=== PATIENT | female | born 1935 | race Caucasian/White ===

== ENCOUNTER → 2017-11-29 07:38 | Outpatient (CLI) | payer MEDICARE, SELFPAY ==
--- NOTE | 2017-11-29 07:49 | CT_ITS ---
STUDY: CT CHEST WITH CONTRAST REASON FOR EXAM: Female, 82 years old. Lung nodule RADIATION DOSAGE (If Supplied By Facility): CTDIvol = ( 8.28 ) mGy, DLP = ( 237.41 ) mGycm TECHNIQUE: Transaxial imaging was performed following intravenous administration of 100 ml of Isovue 300 contrast material. Individualized dose optimization techniques were used for this CT. COMPARISON: Previous study of 04/25/2013 FINDINGS: There is a stable 5 mm nodule of the left upper lobe, axial image 47. There are mild fibrotic changes of the right middle lobe and left lower lobe. There is no demonstrated pleural abnormality. There is mild cardiomegaly. There is no pericardial effusion. There is no evidence of mediastinal mass or adenopathy. There is a short segment focus of circumferential wall thickening of the midesophagus. Normal hilar regions. Normal enhanced pulmonary arteries. The ascending thoracic aorta is ectatic measuring up to 3.6 cm. There are diffuse degenerative changes of the thoracic spine. There is no demonstrated abnormality of the visualized upper abdomen. CT/Chest WITH Contrast IMPRESSION: 1. Stable 5 mm nodule of the left upper lobe. 2. Mild fibrotic changes of the right middle lobe and left lower lobe, also stable in the interval. 3. Short segment focus of circumferential wall thickening of the midesophagus, also appearing to have been present on the previous study. 4. Ectatic ascending thoracic aorta measuring up to 3.6 cm in diameter. 5. Diffuse degenerative changes of the thoracic spine. Electronically Signed: Michael Santos MD at 16:59 EDT , Service support ,
[2017-11-29 08:06] LABS: CREATININE FINGERSTICK 0.8 mg/dL (0.55-1.02); EGFR FINGERSTICK > 60.0000 mL/min (>60)
== END ==
PROVIDERS: Family Provider Internal Medicine; PCP Internal Medicine; Visit Provider Internal Medicine
DX: R91.1 Solitary pulmonary nodule (principal)
CPT/HCPCS: 71260; Q9967

== ENCOUNTER → 2017-12-23 08:26 | Outpatient (CLI) | payer MEDICARE, SELFPAY ==
--- NOTE | 2017-12-23 08:39 | RAD_ITS ---
Procedure: Fluoroscopically guided dedicated esophagram. INDICATIONS: Dysphasia. TECHNIQUE: Fluoroscopically guided dedicated esophagram including frontal and lateral views of the larynx/pharynx. Multiple digital spot images were obtained during the course of the real-time exam. Fluoroscopy time 1 minute and 10 seconds. FINDINGS: Multiple tertiary nonpropulsive contractions are seen through the mid and distal esophagus. There is no esophageal stricture, web or diverticulum. There is no hiatal hernia. No free reflux was observed during the course of the real-time exam. Frontal and lateral dedicated images of the larynx/pharynx demonstrated symmetric flow of the contrast bolus without mass or mass effect. The barium pill passed easily through the esophagus into the stomach. RAD/Esophagus Only IMPRESSION: Presbyesophagus. No esophageal stricture, web or diverticulum. Esophageal mucosal pattern appears unremarkable. Barium pill passed easily through the esophagus into the stomach. Electronically Signed: Bert Nicolas MD at 9:19 EDT , Service support ,
== END ==
PROVIDERS: Family Provider Internal Medicine; PCP Internal Medicine; Visit Provider Internal Medicine Gastroenterology
DX: R13.10 Dysphagia, unspecified (principal)
CPT/HCPCS: 74220

== ENCOUNTER → 2018-05-23 11:45 | Outpatient (CLI) | payer MEDICARE, SELFPAY ==
[2018-05-23 12:04] LABS: Hematocrit 41.3 % (37-47); Hemoglobin 13.3 g/dl (12.0-15.0); Mean Corp Hgb Conc 32.2 g/gl (32-36); Mean Corpuscular Hgb 28.7 pg (27.0-32.0); Mean Corpuscular Volume 89.2 fL (81-99); Mean Platelet Vol. 9.1 fl (6.2-12.0); Platelet Count 202 K/mm3 (150-450); RBC Distribution Width CV 13.8 % (11.6-14.6); RBC Distribution Width SD 44.7 fl (35.1-43.9); Red Blood Count 4.63 M/mm3 (4.2-5.4); Scan Indicated on CBC? Y/N NO; White Blood Count 5.5 K/mm3 (4.4-11.0)
--- NOTE | 2018-05-23 12:25 | CT_ITS ---
STUDY: CT ABDOMEN AND PELVIS WITHOUT CONTRAST REASON FOR EXAM: Female, 83 years old. Hematuria. RADIATION DOSAGE (If Supplied By Facility): CTDIvol = ( 6.66 ) mGy, DLP = ( 272.87 ) mGycm TECHNIQUE: Transaxial images were obtained from the dome of the diaphragm to the symphysis pubis without oral contrast, and without intravenous contrast. Sagittal and coronal images were reconstructed. Individualized dose optimization techniques were used for this CT. COMPARISON: Comparison is made with prior study dated November 16, 2015. FINDINGS: The visualized lung bases are unremarkable. Coronary artery calcification. Normal liver. Normal gallbladder and extrahepatic biliary system. Normal spleen. Normal pancreas. The right adrenal gland has been removed. Stable punctate calcification in the right adrenal bed. Stable enlargement of the left adrenal gland. 1.5 cm cyst in the anterior midportion of the right kidney. There is a 3.2 cm x 3.9 cm cyst along the medial upper portion of the left kidney. There is a small hiatal hernia. Normal small intestine. There are multiple colonic diverticula consistent with diverticulosis. The appendix is visualized and appears normal. There is diffuse atherosclerotic calcification of the abdominal aorta, without a demonstrated aneurysm. Normal inferior vena cava. Normal retroperitoneum. Normal urinary bladder. Normal abdominal wall. There are diffuse degenerative changes of the visualized lumbar spine. Dextroscoliosis. CT/Abdomen/Pelvis without Cont IMPRESSION: Stable bilateral renal cysts. Status post right adrenalectomy. Electronically Signed: Michael Persaud MD at 13:22 EDT Tel [phone], Service support ,
--- NOTE | 2018-05-23 12:35 | RAD_ITS ---
STUDY: X-RAY - ABDOMEN/PELVIS REASON FOR EXAM: Female, 83 years old. Right anterior abdominal pain. TECHNIQUE: Single AP view of the abdomen / pelvis. COMPARISON: None. FINDINGS: Normal visualized lung bases. There is a moderate amount of colonic fecal material. The visualized liver, spleen and kidneys are grossly normal in size and morphology. There are calcified phleboliths in the pelvis. There are diffuse degenerative changes of the visualized lumbar spine. Mild dextroscoliosis. RAD/Abdomen Single View IMPRESSION: Moderate amount of fecal material is seen in the colon. Electronically Signed: Michael Persaud MD at 13:18 EDT Tel [phone], Service support ,
[2018-05-23 12:36] LABS: ALB/GLOB Ratio 1.1 RATIO (0.9-2.4); AST(SGOT) 23 U/L (15-37); Alanine Aminotransfer ALT/SGPT 23 U/L (13-56); Albumin, Serum 3.9 g/dL (3.2-5.0); Alkaline Phosphatase 65 U/L (45-117); Anion Gap 8 (5-15); BUN 20 mg/dL (7-18); BUN/Creat Ratio 17.2 RATIO (10-20); Calcium,Total 9.4 mg/dL (8.5-10.1); Chloride 100 mmol/L (98-107); Creatinine, Serum 1.16 mg/dL (0.55-1.02); EST Glomerular Filtration Rate 48 mL/min (>60); Est Glom Filt Rate - Afr Amer 58 mL/min (>60); Globulin 3.7 g/dL (2.2-4.2); Glucose 87 mg/dL (74-106); Potassium 4.5 mmol/L (3.5-5.1); Protein, Total 7.6 g/dL (6.4-8.2); Sodium Level 138 mmol/L (136-145)
== END ==
PROVIDERS: Family Provider Internal Medicine; PCP Internal Medicine; Visit Provider Nurse Practitioner
DX: R10.9 Unspecified abdominal pain (principal); R31.9 Hematuria, unspecified
CPT/HCPCS: 74018; 74176; 80053; 85027

== ENCOUNTER → 2018-06-24 12:53 | Outpatient (CLI) | payer MEDICARE, SELFPAY ==
--- NOTE | 2018-06-24 12:54 | ECHOD_ITS ---
Reason For Study: DYSPNEA/SOB Procedure This was a 2D Doppler, Color Flow transthoracic echocardiogram. Exam performed in department. Left Ventricle Normal LV size. Apical false tendon noted. Left ventricular systolic function is normal. The estimated ejection fraction is 60 %. No regional wall motion abnormalities noted. Right Ventricle Normal RV size. Normal systolic function. Atria The left atrium is mildly enlarged. Normal right atrium. No doppler evidence for ASD. Mitral Valve There is no mitral annular calcification. Mild diffuse mitral valve thickening. Moderate mitral valve prolapse. 2D echocardiographic images appearing c/w a redundant and / or ruptured chordae tendonae. Mild-Moderate (1-2+) mitral valve insufficiency. Tricuspid Valve Normal tricuspid valve. Mild to moderate (1-2+) tricuspid valve insufficiency. Right ventricular systolic pressure estimated to be 28 mmHg. Aortic Valve Trisinus/trileaflet aortic valve. Mild diffuse aortic valve thickening. Mild-Moderate (1-2+) aortic valve insufficiency. Pulmonic Valve The pulmonic valve is not well visualized. Mild (1+) pulmonic valve insufficiency. Great Vessels Borderline to mildly enlarged ascending aorta. Pericardium/Pleural No pericardial effusion. MMode/2D Measurements & Calculations LVIDd: 4.5 cm IVSd: 0.99 cm LVOT diam: 2.4 cm LVIDs: 3.3 cm LVPWd: 1.0 cm LVOT area: 4.4 cm2 RVDd: 2.7 cm FS: 26.8 % Ao root diam: 2.9 cm LAV(MOD-bp): 58.9 ml LA A4 area: 19.8 cm2 LA dimension: 3.5 cm LAV(MOD-bp) Indexed: 37.1 ml/m2 LAV(MOD-sp2): 55.7 ml LAV(MOD-sp4): 54.8 ml RA A4 area: 14.7 cm2 Doppler Measurements & Calculations MV E max bradford: 64.4 cm/sec Lat Peak E' Bradford: 8.2 cm/sec Med Peak E' Bradford: 8.8 cm/sec MV A max bradford: 51.2 cm/sec E/E' lat: 7.9 E/E' med: 7.3 MV E/A: 1.3 Ao V2 max: 141.9 cm/sec AI max bradford: 490.1 cm/sec LV V1 max: 100.5 cm/sec Ao max P.1 mmHg AI max P.1 mmHg LV V1 max P.0 mmHg TRELL(V,D): 3.1 cm2 AI dec slope: 320.9 cm/sec2 AI P1/2t: 447.4 msec PA V2 max: 83.4 cm/sec PI end-d bradford: 89.7 cm/sec TR max bradford: 250.6 cm/sec TR max P.2 mmHg Interpretation Summary Left ventricular systolic function is normal. The estimated ejection fraction is 60 %. Apical false tendon noted. The left atrium is mildly enlarged. Moderate mitral valve prolapse. Mild diffuse mitral valve thickening. 2D echocardiographic images appearing c/w a redundant and / or ruptured chordae tendonae. Mild-Moderate (1-2+) mitral valve insufficiency. Mild to moderate (1-2+) tricuspid valve insufficiency. Mild diffuse aortic valve thickening. Mild-Moderate (1-2+) aortic valve insufficiency. Mild (1+) pulmonic valve insufficiency. Borderline to mildly enlarged ascending aorta. Right ventricular systolic pressure estimated to be 28 mmHg. Transmitral diastolic flow velocities suggest diastolic dysfunction (pseudonormal pattern). Ordering Physician: Galen Morales Referring Physician: Dori Boyd M.D. Performed By: Cherelle Figueredo RDCS, RVT
== END ==
PROVIDERS: Family Provider Internal Medicine; PCP Internal Medicine; Referring Provider Nurse Practitioner Family; Visit Provider Nurse Practitioner Family
DX: I25.10 Atherosclerotic heart disease of native coronary artery without angina pectoris (principal); I34.0 Nonrheumatic mitral (valve) insufficiency; I35.1 Nonrheumatic aortic (valve) insufficiency; I51.9 Heart disease, unspecified
CPT/HCPCS: 93306

== ENCOUNTER → 2018-09-09 09:49 | Outpatient (CLI) | payer MEDICARE, SELFPAY ==
--- NOTE | 2018-09-09 09:52 | CDU_ITS ---
Reason For Study: Carotid stenosis Rt. Velocities/BP Lt. Velocities/BP Prox CCA 108.0/18.2 cm/sec. Prox CCA 107.0/23.5 cm/sec. Mid CCA 81.5/14.7 cm/sec. Mid CCA 87.9/17.6 cm/sec. Dist CCA 73.3/18.2 cm/sec. Dist CCA 78.6/16.4 cm/sec. Prox ICA 57.5/19.3 cm/sec. Prox ICA 48.1/15.8 cm/sec. Mid ICA 83.8/24.6 cm/sec. Mid ICA 50.4/16.6 cm/sec. Dist ICA 78.8/21.9 cm/sec. Dist ICA 65.9/23.8 cm/sec. Rt. ICA/CCA = 1.0. Lt. ICA/CCA = .75. Prox ECA 103.0/19.9 cm/sec. Prox ECA 49.0/8.6 cm/sec. Rt. Vert. 49.2/16.4 cm/sec. Lt. Vert. 42.8/12.9 cm/sec. Right Extracranial There is intimal thickening but no significant atherosclerotic plaque noted in the right common carotid artery. There is heterogeneous, irregular atherosclerotic plaque noted in the right internal carotid artery. There is no significant atherosclerotic plaque noted in the right external carotid artery. Antegrade flow is noted in the right vertebral artery. Left Extracranial There is intimal thickening but no significant atherosclerotic plaque noted in the left common carotid artery. There is homogeneous, smooth atherosclerotic plaque noted in the left internal carotid artery. There is no significant atherosclerotic plaque noted in the left external carotid artery. Antegrade flow is noted in the left vertebral artery. Procedure Carotid Duplex [id number]. Exam performed in department. Interpretation Summary Mild (<50%) stenosis right extracranial internal carotid. Mild (<50%) stenosis left extracranial internal carotid. Flow within the vertebral arteries is antegrade bilaterally. Ordering Physician: Dori Boyd Referring Physician: Dori Boyd Performed By: Marcia Fitzpatrick RVT
== END ==
PROVIDERS: Family Provider Internal Medicine; PCP Internal Medicine; Referring Provider Internal Medicine; Visit Provider Internal Medicine
DX: I65.23 Occlusion and stenosis of bilateral carotid arteries (principal)
CPT/HCPCS: 93880

== ENCOUNTER 2019-02-26 12:48 | Observation (INO) | payer MEDICARE, SELFPAY ==
[2019-01-08 12:58] VITALS: BMI 27.1
[2019-02-26] VITALS (9 sets, daily range): BP systolic 120–173; BP diastolic 52–96; PULSE 61–91; RESP 13–18; TEMP 36.6–36.8; O2SAT 93–96; BMI 25.4; BMI 25.5; BMI 24.8
--- NOTE | 2019-02-26 13:25 | EKG12_ITS ---
Test Reason : CP Blood Pressure : / mmHG Vent. Rate : 078 BPM Atrial Rate : 227 BPM P-R Int : 000 ms QRS Dur : 120 ms QT Int : 384 ms P-R-T Axes : 048 -23 017 degrees QTc Int : 437 ms Sinus Rhythm Occasional PACs Occasional PVC's Low Voltage QRS (Limb Leads) Right bundle branch block Abnormal ECG Confirmed by CHAPITO MARCANO, SHAHZAD ([id number]), non linear editor JEFFREY RODRIGUEZ ([id number]) on 03/02/2019 2:24:58 PM Referred By: SUSNANA Confirmed By:SHAHZAD URIARTE MD
--- NOTE | 2019-02-26 13:26 | ED.DCSUM_ITS ---
- ER Visit Summary Date of Service: 02/26/19 Chief Complaint: Chest pain History of Present Illness: The patient is a 83 F who presents with chest pain that has been waxing and waning over the past 3 days. Patient describes as a tightness of the neck and upper chest. Patient states it is worse with exertion and improves with rest. Patient admits to some nausea but denies any vomiting. Patient admits to some shortness of breath and diaphoresis. Patient also admits to some palpitations. Patient also admits to some reflux symptoms that came on at night. Patient admits to some fatigue and lightheadedness. Patient also admits to a cough. Patient denies any fevers or chills. Patient has a history of hypercholesterolemia but denies any other cardiac or PE risk factors. Physical Examination: Vital signs are stable. Patient is afebrile. Patient is in no acute distress. Oral mucosa is pink and moist. Neck is supple. Trachea is midline. There is no JVD noted. Heart was regular rate and rhythm. Lungs are clear and equal bilateral. Abdomen is soft. Bowel sounds are normal. There is no tenderness. There is no guarding noted. Skin is warm dry. Cranial nerves II through XII are intact. There are no focal motor or sensory deficits noted. The remaining physical exam is within normal limits. Test Results: EKG showed a normal sinus rhythm with a rate of 78. There is a right bundle branch block pattern noted. There are no acute ST or T wave changes. This was unchanged compared to previous EKG dated 12/13/2015. Portable chest x-ray was obtained. There is no acute cardiopulmonary process. CBC was normal. Creatinine was slightly elevated at 1.26 BUN was 22. Troponin was slightly elevated at 0.215. TSH was normal at 2.2. Emergency Department Course and Treatment: Patient was given aspirin and sublingual nitroglycerin. Patient does not think the nitroglycerin change the tightness in her neck and chest. Patient has a HEART score of 7. Case was discussed with Dr. Kim. He will admit the patient to his service. Patient states she sees Dr. Bradshaw for cardiology. Disposition: Admit to hospital Impression: 1. Chest pain 2. Elevated troponin This note was generated with [employer] dictation software. It may contain incorrect words, spelling, and punctuation that were not noted in review of the chart prior to signing ED Disposition - Plan for ED Patient: Disposition: Acute Care Hospital [facility] Diagnosis: Chest pain, Elevated troponin Referrals: Dori Boyd DO [Primary Care Provider] -
[2019-02-26] MEDS: Aspirin 81 MG TAB.CHEW 324 MG PO (13:35)
--- NOTE | 2019-02-26 13:35 | ED.RN ---
Pt denies any chest pain or tightness at this time. Denies need for NTG tablets at this time. Instructed pt to use call light if chest pain or tightness started. Dr Moore aware.
--- NOTE | 2019-02-26 13:45 | RAD_ITS ---
STUDY: X-RAY CHEST REASON FOR EXAM: Female, 83 years old. TECHNIQUE: COMPARISON: None. FINDINGS: The lungs are clear and expanded. There is no demonstrated pleural abnormality. Normal size heart. Normal mediastinum and colette. Normal visualized pulmonary arteries. Normal visualized aortic arch and descending thoracic aorta. Normal visualized thoracic spine. Normal visualized ribs, clavicles, and shoulders. There is no demonstrated abnormality of the visualized soft tissue structures of the upper abdomen. RAD/Chest 1 View (Portable) IMPRESSION: Normal x-ray examination of the chest. Electronically Signed: Mehran Ferrell, at 14:19 EDT Tel , Service support ,
[2019-02-26 13:46] LABS: Absolute Lymphocyte Count 1.31 X10^3/ul (0.83-4.51); Absolute Neutrophil Count 3.3 X10^3/uL (2.0-7.7); Basophil# 0.02 X10^3/uL; Basophil% 0.4 % (0-1); Eosinophil# 0.21 X10^3/uL; Eosinophils% 3.9 % (0-5); Hematocrit 39.4 % (37-47); Hemoglobin 13.3 g/dl (12.0-15.0); Lymphocyte # 1.31 X10^3/ul (4.0); Lymphocyte % 24.5 % (19-41); Mean Corp Hgb Conc 33.8 g/gl (32-36); Mean Corpuscular Hgb 29.3 pg (27.0-32.0); Mean Corpuscular Volume 86.8 fL (81-99); Mean Platelet Vol. 8.9 fl (6.2-12.0); Monocyte# 0.47 X10^3/uL; Monocyte% 8.8 % (0-10); Neutrophil # 3.33 X10^3/uL (2.7-7.7); Neutrophil % 62.2 % (47-70); Platelet Count 204 K/mm3 (150-450); RBC Distribution Width CV 13.4 % (11.6-14.6); RBC Distribution Width SD 43.1 fl (35.1-43.9); Red Blood Count 4.54 M/mm3 (4.2-5.4); White Blood Count 5.4 K/mm3 (4.4-11.0)
[2019-02-26 13:49] LABS: POSITIVE COUNT NO; POSITIVE DIFFERENTIAL NO; POSITIVE MORPHOLOGY NO
[2019-02-26 14:03] LABS: Anion Gap 4 (5-15); BUN 22 mg/dL (7-18); BUN/Creat Ratio 17.5 RATIO (10-20); Calcium,Total 9.6 mg/dL (8.5-10.1); Chloride 105 mmol/L (98-107); Creatinine, Serum 1.26 mg/dL (0.55-1.02); EST Glomerular Filtration Rate 43 mL/min (>60); Est Glom Filt Rate - Afr Amer 52 mL/min (>60); Estimated Creatinine Clearance 25.98 ml/min; Glucose 103 mg/dL (74-106); Potassium 4.1 mmol/L (3.5-5.1); Sodium Level 136 mmol/L (136-145)
--- NOTE | 2019-02-26 15:21 | ED.RN ---
Pt called out c/o upper chest/neck tightness. Dr. Moore aware, NTG given per orders.
[2019-02-26] MEDS: Nitroglycerin SL (ED/IMG/CATH) 0.4 MG TABLET SUBLINGUAL ×2 (15:25→15:35)
--- NOTE | 2019-02-26 16:04 | ED.RN ---
pt states second dose Nitro took tightness feeling away. denies need for third dose.
--- NOTE | 2019-02-26 16:45 | HP.PCM_ITS ---
Problem List (1) Unstable angina Status: Acute History of Present Illness Date of Admission: 02/26/19 Chief Complaint: chest pain The patient is a 83 year old F for the past few days has been having midsternal chest pain that goes up into her left jaw. It is intermittent occasionally associate with activity but other times it does not. Presents to the emergency room because she just felt very weak over this time. Had a troponin that was 0.2. Patient did receive aspirin in the emergency room. The hospitalist service was contacted to see about admitting this patient for further cardiac evaluation. Patient has had intermittent chest pain before but has never sought attention for it as this tends to be more severe than what she is experienced previously. No shortness of breath, no diaphoresis. [] Past Medical History Past Medical History (Chronic Problems): Chronic Problems (Last Reviewed 01/08/19 @ 12:57 by Josseline Wellington) Essential (primary) hypertension (Chronic) Pure hypercholesterolemia (Chronic) Atherosclerosis of [place] coronary artery of [place] heart without angina pectoris (Chronic) Non-rheumatic tricuspid valve insufficiency (Chronic) Diastolic dysfunction (Chronic) Hx of congestive heart failure (Chronic) Nonrheumatic mitral valve insufficiency (Chronic) Nonrheumatic aortic valve insufficiency (Chronic) Nonrheumatic mitral valve prolapse (Chronic) CHF (congestive heart failure) (Chronic) Medical History: Medical History (Last Reviewed 02/26/19 @ 16:47 by Teajs Kim DO) Essential (primary) hypertension (Chronic) I10 Pure hypercholesterolemia (Chronic) E78.00 Atherosclerosis of [place] coronary artery of [place] heart without angina pectoris (Chronic) I25.10 Non-rheumatic tricuspid valve insufficiency (Chronic) I36.1 Diastolic dysfunction (Chronic) I51.9 Hx of congestive heart failure (Chronic) Z86.79 Cataract (Resolved) H26.9 Nonrheumatic mitral valve insufficiency (Chronic) I34.0 Nonrheumatic aortic valve insufficiency (Chronic) I35.1 Nonrheumatic mitral valve prolapse (Chronic) I34.1 CHF (congestive heart failure) (Chronic) I50.9 Old myocardial infarction (Resolved) I25.2 NonST Elevation FL Troponin I above reference range (Resolved) R79.89 Chest pain (Resolved) R07.9 GERD (gastroesophageal reflux disease) K21.9 Dyspnea R06.00 Allergies latex Allergy (Mild, Verified 02/26/19 12:52) Rash Penicillins [PCN] Allergy (Verified 02/26/19 16:24) Unknown Wdwniye-Dkr-Vbo Reductase Inhibitor Allergy (Verified 02/26/19 12:52) All blood cells low Home Medications: Ambulatory Orders Medication Instructions Recorded Aspirin [Aspirin, Baby] 81 mg PO DAILY@0800 12/13/15 Calcium Carbonate [Calcium] 1,200 mg PO DAILY 12/13/15 Cholecalciferol (VIT D3) [Vitamin 1,000 unit PO DAILY 12/13/15 D3] Fish Oil/Om-3/E/Folic/B6-B12 1 capsule PO QODAY 12/13/15 [Cardiovid Plus Softgel] Levothyroxine [Synthroid] 25 mcg PO MOTUWETHFR 12/13/15 ascorbic acid (vitamin C) 500 mg 500 mg PO QODAY tab 06/17/18 tablet coenzyme Q10 75 mg capsule 75 mg PO DAILY 12/10/18 colestipol 1 gram tablet 2 gm PO BID tab 12/10/18 vitamin E 200 unit capsule 200 unit PO QODAY cap 12/10/18 ALPRAZolam [Xanax] 0.125 - 0.25 mg PO Q8H PRN PRN 02/26/19 Cyanocobalamin (Vitamin B-12) 1,000 mcg PO QODAY 02/26/19 [Vitamin B-12] Levothyroxine Sodium 50 mcg PO SUSA 02/26/19 Vitamin B Complex [B Complex] 1 tab PO QODAY 02/26/19 Surgical History: Surgical History (Last Reviewed 02/26/19 @ 16:47 by Tejas Kim DO) History of appendectomy Z90.49 History of dilatation and curettage Z98.890 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 Surgical History: appendectomy, cataract, - - 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 Psychiatric History: No pertinent psych hx 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 Smoking Status: Never smoker - *Family History Maternal Family History: Family History (Last Reviewed 02/26/19 @ 16:47 by Tejas Kim DO) Father CAD (coronary artery disease) Myocardial infarction Mother CVA (cerebral vascular accident) Brother Aneurysm Brother Heart disease Sister Afib Parkinson's disease History Items: No pertinent history Paternal Family History: Family History (Last Reviewed 02/26/19 @ 16:47 by Tejas Kim DO) Father CAD (coronary artery disease) Myocardial infarction Mother CVA (cerebral vascular accident) Brother Aneurysm Brother Heart disease Sister Afib Parkinson's disease History Items: Heart Disease Sibling Family History: Family History (Last Reviewed 02/26/19 @ 16:47 by Tejas Kim DO) Father CAD (coronary artery disease) Myocardial infarction Mother CVA (cerebral vascular accident) Brother Aneurysm Brother Heart disease Sister Afib Parkinson's disease History Items: Heart Disease Review of Systems Constitutional: Reports: Malaise. Denies: Chills, Fever, Weight Change Eyes: Denies: Blurred vision, Double vision HEENT: Denies: Head Aches, Sinus Congestion, Sinus Drainage Cardiovascular: Reports: Chest Pain. Denies: Edema Respiratory: Denies: Cough, Shortness of breath at rest, Sputum production Gastrointestinal: Denies: Abdominal Pain, Nausea, Vomiting Genitourinary: Denies: Dysuria Musculoskeletal: Denies: Joint Pain, Joint Tenderness Skin: Denies: Rash, Wounds Neurological: Denies: Numbness, Tingling, Focal weakness Psychiatric: Denies: Anxiety, Depression Hematologic/ Lymphatic: Denies: Easy Bruising, Easy Bleeding, Hx of blood clot VTE Information - Inpt Only VTE Present on Admission: No VTE Mechan Device Prophylaxis: None VTE Pharm Prophylaxis ordered?: No Reason prophylaxis not ordered:: Procedure Not Indicated Patient Problems: Active and Suspected Problems (Last Reviewed 01/08/19 @ 12:57 by Josseline Wellington) Chest pain (Acute) Elevated troponin (Acute) Unstable angina (Acute) - Physical Exam General: Alert, Cooperative, No apparent distress HEENT: Atraumatic, Normocephalic Oral: Moist Mucosa, No Gingival or Mucosal Lesions/ Ulcerations Neck: No Nodes, Thyroid Normal Size and Texture Lungs: Clear to auscultation, Normal air movement, No rhonchi, No wheeze, No rales, Diminished Cardiovascular: Regular rate, Regular Rhythm, Normal S1, Normal S2, No murmurs Abdomen: Bowel Sounds Present, Soft, Non Tender, Non-Distended, No Hepato- splenomegaly Extremities: No edema, No Calf Tenderness Skin: No rashes, No breakdown Musculoskeletal: No Tenderness to Palpation of Joints or Extremities, No Muscle Wasting Neurological: Deep Tendon Reflexes 2+/4 and Symmetrical, - - No clonus Psych/Mental Status: Normal Affect, Appropriate Vital Signs Temp Pulse Resp BP Pulse Ox 36.8 C 78 16 131/77 H 96 02/26/19 12:50 02/26/19 16:00 02/26/19 16:00 02/26/19 16:00 02/26/19 16:00 Oxygen Delivery Method Room Air Weight: 62.142 kg Body Mass Index (BMI) 25.4 Laboratory Tests Past 24 Hrs 02/26/19 02/26/19 13:20 13:20 WBC 5.4 RBC 4.54 Hgb 13.3 Hct 39.4 MCV 86.8 MCH 29.3 MCHC 33.8 RDW 13.4 RDW Differential 43.1 Plt Count 204 MPV 8.9 Immature Gran % (Auto) 0.200 Neut % (Auto) 62.2 Lymph % (Auto) 24.5 [place] % (Auto) 8.8 Eos % (Auto) 3.9 Baso % (Auto) 0.4 Absolute Neuts (auto) 3.3 Absolute Lymphs (auto) 1.31 Total Counted Not Reportable Sodium 136 Potassium 4.1 Chloride 105 Carbon Dioxide 27.0 Anion Gap 4 L BUN 22 H Creatinine 1.26 H Estim Creat Clear Calc 25.98 Est GFR (MDRD) Af Amer 52 L Est GFR (MDRD) Non-Af 43 L BUN/Creatinine Ratio 17.5 Glucose 103 Calcium 9.6 Troponin I 0.215 H TSH 2.20 EKG personally reviewed and showed normal sinus rhythm with a right bundle branch block. EKG reported noted atrial flutter but I do not see any saw wave pattern. Chest x-ray reviewed and showed normal airways no infiltrate nor pulmonary edema. Assessment/Plan All Active Problems (Last Reviewed 01/08/19 @ 12:57 by Josseline Wellington) Chest pain (Acute) Elevated troponin (Acute) Unstable angina (Acute) Cataract (Resolved) Old myocardial infarction (Resolved) Troponin I above reference range (Resolved) Chest pain (Resolved) 1. Unstable angina * Troponins leg elevated * MARTÍN score of 5, heart score of 7 * We will start the patient on Lovenox, continue with aspirin. * Consult cardiology, patient normal stock wetter is Dr. Bradshaw. * Had a heart cath back in 2015 that showed minimal nonobstructive coronary artery disease. 2. Heart failure with preserved ejection fraction * Ejection fraction of 60% from echocardiogram on June 24, 2018 * Clinically compensated at this time 3. VTE prophylaxis: Low risk is being anticoagulated, therefore not indicated. Code Visit OBSV E&M: 99999 Initial observation care L3
--- NOTE | 2019-02-26 16:48 | EKG12_ITS ---
Test Reason : CP Blood Pressure : / mmHG Vent. Rate : 060 BPM Atrial Rate : 060 BPM P-R Int : 146 ms QRS Dur : 116 ms QT Int : 422 ms P-R-T Axes : 062 -09 025 degrees QTc Int : 422 ms Normal sinus rhythm with sinus arrhythmia Right bundle branch block Abnormal ECG Confirmed by CHAPITO MARCANO, SHAHZAD ([id number]), news assignment editor JUSTYNA LYNN ([id number]) on 03/03/2019 12:05:21 PM Referred By: RANDOLPH Confirmed By:SHAHZAD URIARTE MD
[2019-02-26] MEDS: Enoxaparin 60 MG/0.6 ML Syringe SC (17:51)
[2019-02-27] VITALS (34 sets, daily range): BP systolic 113–170; BP diastolic 59–100; PULSE 66–95; RESP 11–18; TEMP 36.5–36.8; O2SAT 13–99; BMI 22.1
[2019-02-27] MEDS: Acetaminophen 325 MG Tablet 650 MG PO ×2 (02:08→21:48)
[2019-02-27] MEDS: Levothyroxine 25 MCG TABLET PO (05:12)
[2019-02-27 06:08] LABS: International Normalized Ratio 1.1; Prothrombin Time (Protime)PT. 13.5 SECONDS (11.7-14.9)
[2019-02-27 06:10] LABS: Anion Gap 8 (5-15); BUN 24 mg/dL (7-18); BUN/Creat Ratio 20.7 RATIO (10-20); Calcium,Total 9.2 mg/dL (8.5-10.1); Chloride 103 mmol/L (98-107); Creatinine, Serum 1.16 mg/dL (0.55-1.02); EST Glomerular Filtration Rate 47 mL/min (>60); Est Glom Filt Rate - Afr Amer 57 mL/min (>60); Estimated Creatinine Clearance 28.22 ml/min; Glucose 98 mg/dL (74-106); Potassium 4.1 mmol/L (3.5-5.1); Sodium Level 138 mmol/L (136-145)
[2019-02-27] MEDS: Aspirin 81 MG TAB.CHEW PO (10:09)
[2019-02-27] MEDS: Calcium Carbonate 500 MG Tablet PO (10:10)
--- NOTE | 2019-02-27 10:24 | PCM.CONS.C ---
Problem List (1) Chest pain Status: Acute (2) Elevated troponin Status: Acute Reason for Consult Date of Consultation: 02/27/19 History of Present Illness: The patient is a 83 year old F [coming to [facility] because of chest tightness. Patient had chest tightness radiating to the left jaw on Saturday. She had it all day on Saturday and says that it felt better when she rested. On Saturday she called her doctor's office for an appointment and went to the doctor's office on . When she walked from her car to the doctor's office she had chest tightness. Her primary care physician sent the patient to the emergency room where she was given nitroglycerin which relieved her chest discomfort. Patient states she has had this chest tightness on and off to a lesser extent earlier than Saturday as well. She had a heart cath in December 2015 which was negative for obstructive CAD. At that time however her chest discomfort was different from what she is having at this time. Review of systems: All systems reviewed. All else is negative except that in the HPI] Past Medical History Allergies/Adverse Reactions: Allergies latex Allergy (Mild, Verified 02/26/19 12:52) Rash Penicillins [PCN] Allergy (Verified 02/26/19 16:24) Unknown Kdoioms-Rzc-Fof Reductase Inhibitor Allergy (Verified 02/26/19 12:52) All blood cells low Home Medications: Ambulatory Orders Medication Instructions Recorded Aspirin [Aspirin, Baby] 81 mg PO DAILY@0800 12/13/15 Calcium Carbonate [Calcium] 1,200 mg PO DAILY 12/13/15 Cholecalciferol (VIT D3) [Vitamin 1,000 unit PO DAILY 12/13/15 D3] Fish Oil/Om-3/E/Folic/B6-B12 1 capsule PO QODAY 12/13/15 [Cardiovid Plus Softgel] Levothyroxine [Synthroid] 25 mcg PO MOTUWETHFR 12/13/15 ascorbic acid (vitamin C) 500 mg 500 mg PO QODAY tab 06/17/18 tablet coenzyme Q10 75 mg capsule 75 mg PO DAILY 12/10/18 colestipol 1 gram tablet 2 gm PO BID tab 12/10/18 vitamin E 200 unit capsule 200 unit PO QODAY cap 12/10/18 ALPRAZolam [Xanax] 0.125 - 0.25 mg PO Q8H PRN PRN 02/26/19 Cyanocobalamin (Vitamin B-12) 1,000 mcg PO QODAY 02/26/19 [Vitamin B-12] Levothyroxine Sodium 50 mcg PO SUSA 02/26/19 Vitamin B Complex [B Complex] 1 tab PO QODAY 02/26/19 Past Medical History (Chronic Problems): Chronic Problems (Last Reviewed 02/26/19 @ 16:47 by Tejas Kmi DO) Essential (primary) hypertension (Chronic) Pure hypercholesterolemia (Chronic) Atherosclerosis of [place] coronary artery of [place] heart without angina pectoris (Chronic) Non-rheumatic tricuspid valve insufficiency (Chronic) Diastolic dysfunction (Chronic) Hx of congestive heart failure (Chronic) Nonrheumatic mitral valve insufficiency (Chronic) Nonrheumatic aortic valve insufficiency (Chronic) Nonrheumatic mitral valve prolapse (Chronic) CHF (congestive heart failure) (Chronic) Surgical History: appendectomy, cataract, - - 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 Psychiatric History: No pertinent psych hx 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: No pertinent 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 DIRECTOR history - *Family History Maternal Family History: Family History (Last Reviewed 02/26/19 @ 16:47 by Tejas Kim DO) Father CAD (coronary artery disease) Myocardial infarction Mother CVA (cerebral vascular accident) Brother Aneurysm Brother Heart disease Sister Afib Parkinson's disease History Items: No pertinent history Paternal Family History: Family History (Last Reviewed 02/26/19 @ 16:47 by Tejas Kim DO) Father CAD (coronary artery disease) Myocardial infarction Mother CVA (cerebral vascular accident) Brother Aneurysm Brother Heart disease Sister Afib Parkinson's disease History Items: Heart Disease Sibling Family History: Family History (Last Reviewed 02/26/19 @ 16:47 by Tejas Kim DO) Father CAD (coronary artery disease) Myocardial infarction Mother CVA (cerebral vascular accident) Brother Aneurysm Brother Heart disease Sister Afib Parkinson's disease History Items: Heart Disease Smoking Status: Never smoker Objective: Vital Signs Temp Pulse Resp BP Pulse Ox 98.3 F 91 14 143/76 H 98 02/27/19 09:58 02/27/19 09:58 02/27/19 09:58 02/27/19 09:58 02/27/19 09:58 Oxygen Delivery Method Room Air Weight: 133 lb 9.6 oz Body Mass Index (BMI) 24.8 Intake and Output for Last 24 Hours 02/25/19 02/26/19 02/27/19 23:59 23:59 23:59 Intake Total 240 / 240 Balance 240 / 240 General: Awake, Alert, Oriented x 3 HEENT: Atraumatic Oral: Moist Mucosa Neck: Supple Lungs: Clear to auscultation Cardiovascular: Normal S1, Normal S2 Abdomen: Soft Extremities: No edema Skin: No Rashes Psych/Mental Status: Appropriate 02/26/19 13:20: WBC 5.4, RBC 4.54, Hgb 13.3, Hct 39.4, MCV 86.8, MCH 29.3, MCHC 33.8, RDW 13.4, RDW Differential 43.1, Plt Count 204, MPV 8.9, Immature Gran % (Auto) 0.200, Neut % (Auto) 62.2, Lymph % (Auto) 24.5, Scott % (Auto) 8.8, Eos % (Auto) 3.9, Baso % (Auto) 0.4, Absolute Neuts (auto) 3.3, Total Counted Not Reportable 02/26/19 13:20: Sodium 136, Potassium 4.1, Chloride 105, Carbon Dioxide 27.0, Anion Gap 4 L, BUN 22 H, Creatinine 1.26 H, Est GFR (MDRD) Af Amer 52 L, Est GFR (MDRD) Non-Af 43 L, BUN/Creatinine Ratio 17.5, Glucose 103, Calcium 9.6, Troponin I 0.215 H 02/26/19 16:58: Troponin I 0.208 H 02/26/19 20:10: Troponin I 0.213 H 02/27/19 05:05: PT 13.5, INR 1.1 02/27/19 05:05: Sodium 138, Potassium 4.1, Chloride 103, Carbon Dioxide 27.0, Anion Gap 8, BUN 24 H, Creatinine 1.16 H, Est GFR (MDRD) Af Amer 57 L, Est GFR (MDRD) Non-Af 47 L, BUN/Creatinine Ratio 20.7 H, Glucose 98, Calcium 9.2 Rhythm: EKG: ECHO: Stress Test: Cardiac Cath: December 2015: Images reviewed. No significant CAD. PCI: CT Surgery: Holter monitor: EPS: PPM: CXR: Chest CT Scan: Assessment/Plan 1. Chest pain: This is typical by history. Even though patient had an angiogram in December 2015 that was negative for significant CAD, at this time I think it is reasonable to proceed with coronary angiography again. Risks and benefits discussed with the patient in detail. Patient is willing to proceed. 2. Elevated troponin: Patient had elevated troponin to this degree back in December 2015 as well. At that time angiography do not show any significant stenosis in the epicardial coronary arteries. However this time because of different symptoms that are more typical for angina we will proceed with coronary angiography.
[2019-02-27] MEDS: 0.9% NaCl Peripheral Flush Adult/Peds IV (11:41)
[2019-02-27] MEDS: 0.9% Normal Saline 1,000 ML 15 ML IV (11:41)
--- NOTE | 2019-02-27 12:28 | CASEMGMT ---
Insurance Review for In-network hospitals for [employer] per their website: [facility], [facility], , [facility], [facility], [facility], [facility], and [facility]. Bhargav CUMMINSN RN CM
[2019-02-27 14:00] LABS: ACT Activated Clotting Time 158 sec (74-137)
--- NOTE | 2019-02-27 14:00 | EKG12_ITS ---
Test Reason : AM Blood Pressure : / mmHG Vent. Rate : 072 BPM Atrial Rate : 072 BPM P-R Int : 140 ms QRS Dur : 116 ms QT Int : 388 ms P-R-T Axes : 056 -16 005 degrees QTc Int : 424 ms Sinus rhythm with Premature supraventricular complexes Right bundle branch block Abnormal ECG Confirmed by CHAPITO MARCANO, SHAHZAD ([id number]), communications editor JEFFREY RODRIGUEZ ([id number]) on 03/04/2019 12:46:17 PM Referred By: MARCELLE Confirmed By:SHAHZAD URIARTE MD
--- NOTE | 2019-02-27 14:25 | CL.I_ITS ---
Patient Name: HUBERT DAVIS Study Date: 02/27/2019 Performing: Rufus Donis MD Ht: 61 inches 156 cm : 1935 Wt: 134.7 lbs 61 kg Age: 83 Gender: female BSA: 1.6 PROCEDURE(S) PERFORMED [id number], CORONARY OR GRAFT, INITIAL VESSEL [id number] W OR WO PTCA, SINGLE CORONARY ARTERY CLINICAL PROFILE AND CO-MORBIDITIES Indications: ACS > 24 hrs Heart Failure: None Stress/Imaging Stress/Image Study Performed: No CAD Presentations: Unstable angina. CONCLUSIONS Successful IVUS guided PCI of pLAD with OZIEL RECOMMENDATIONS Follow up with primary kier boiler Jer for at least 12 months ASA Indefinitley Routine post interventional care DESCRIPTION OF PROCEDURE The patient arrived to the procedure lab. The risks and benefits of the procedure as well as a full d escription of our services here and current unavailability of surgical backup were fully explained to the patient and/or their significant other prior to the catheterization. The Timeout was completed, verifying the correct patient and procedure. The patient's procedural site was prepped and draped in the usual fashion. Local anesthetic was given subcutaneously to right radial region with Lidocaine 2% Using a modified Seldinger technique,arterial access was obtained via the right radial artery, a 6Fr sheath was inserted. Left Coronary Artery selective angiography was performed in multiple views usin g a 5 Fr. 4.0 [place] catheter. Right Coronary Artery selective angiography was then performed in multi ple views using a 5 Fr. 4.0 [place] catheter. Left Ventriculography was performed in HARRELL projection usi ng a 5 Fr. Pigtail catheter. LV to AO pullback pressures were then recorded.The images were reviewed and options discussed. A decision was then made to proceed with an Intervention, IVUS o r other adjunct procedure. XB 3.0 Guide catheter was inserted and engaged into the LCA. BMW Guide wire was advanced to the L AD. IVUS pullback recording was performed on the LAD for pre- intervention / lesion assessment. XB 3. 0 Guide catheter was inserted and engaged into the LCA. 4.0 x 8 Synergy Drug Eluting stent was advanc ed across the lesion in the LAD, proximal. Angiogram performed post stent deployment. The arterial sheath was pulled and a TR Band was applied for hemostasis 16cc air INTERVENTION INFORMATION LESION SITE: LAD (Proximal) Lesion Complexity: Non-High/Non-C, chronic total occlusion: No, lesion at bifurcation: No, thrombus p resent: No, lesion length: 7 mm, culprit lesion: Yes, Previously treated lesion: No Pre Stenosis: 70 % Pre intervention MARTÍN flow: 3 PROCEDURE: IVUS for pre PCI assessment of vessel, Drug Eluting Stent Post Stenosis: 0 % Post intervention MARTÍN flow: 3 Lesion Devices: [place] .014 BMW [place] Straight 190cm Cordis 6 Fr XB3.0 100cm Guide Catheter IGT Devices ( [facility]) Coronary IVUS Catheter Navid crealytics MR OZIEL 4.00x08 COMPLICATIONS No Complications PROCEDURE MEDICATIONS Versed 1 mg IV Fentanyl 50 mcg IV Versed 1 mg IV Oxygen: 2 L/min via nasal cannula Heparin diluted in 23cc Heparinized saline. Patient given 10cc IA of this solution. 02/27/2019 12:33: 02 Heparin 2000 unit(s) IV 02/27/2019 13:10:20 Verapamil 2.5mg, Ntg 100mcgs, 2000 units of Heparin diluted in 23cc Heparinized saline. Patient give n 10cc IA of this solution. 02/27/2019 12:33:02 SUMMARY OF HEMODYNAMIC DATA Time AIR REST ECG 11:57:23 AO 144/89 (114) SA 12:35:25 LV 168/-11, 23 12:44:47 LV 181/-17, 19 12:44:54 LV 182/-3, 32 12:45:58 LV 177/-8, 29 12:46:04 LVp 173/-10, 26 12:46:10 AOp 188/89 (136) 12:46:15 AO 167/78 (120) 13:10:48 Signed By Rufus Donis MD On 02/27/2019 2:24:58 PM Rufus Donis MD
--- NOTE | 2019-02-27 14:44 | CRPHASE1 ---
Patient Communication PHII Cardiac Rehab Discussed with Patient:: Yes Guide to Cardiac Rehab Given to Patient:: Yes Cardiac Rehab Facility Choice List Given to Patient:: Yes - [facility] Choice Program [facility] CR PHII:: Communication Given to CR, Refer to [facility] Crowning Inspector:: Nathaly Donis Phase II Cardiac Rehab:: Yes Sessions:: 36 sessions - 3 days/wk, 12 weeks Risk Factors/Lifestyle Smoking Status: Never smoker Second-Hand Smoke:: No Hx Hypertension: Yes Hx Dyslipidemia: Yes Height: 1.65 m Weight:: 60.328 kg BMI: 22.1 Family History: Family History (Last Reviewed 02/26/19 @ 16:47 by Tejas Kim DO) Father CAD (coronary artery disease) Myocardial infarction Mother CVA (cerebral vascular accident) Brother Aneurysm Brother Heart disease Sister Afib Parkinson's disease Phase I Education Given On:: [place], Nutrition, Antiplatelet medication, CHF, Smoking cessation, Diabetes - Type I, Diabetes - Type II Issues Affecting Care:: None Knowledge of Condition:: Yes Hospital Course Presenting Symptoms:: CP Cardiac Cath Date:: 02/27/19 Medical/Surgical History Hypertension:: Yes Dyslipidemia:: Yes PTCA:: Yes Discharge/Home/Social Eval Marital Status: Cardiac Rehabilitation Info Cardiac Rehabilitation Program Information: Cardiac Rehabilitation is important for patients like you who are recovering from a heart problem. Cardiac rehabilitation programs are recognized as integral to the continued care of the patient with coronary heart disease. The cardiac rehabilitation program is designed to optimize a patient's physical, psychological, and social functioning. Health child care team lead work in cardiac rehabilitation programs and assist you with getting the treatments you need to get stronger and healthier - like exercise, healthy eating habits, and medications. Cardiac rehabilitation has been show to help people with heart problems live longer and have better life enjoyment than people who do not go to cardiac rehabilitation. Please contact the Cardiac Rehabilitation Program at [facility] at in two weeks if you have not heard from them.
--- NOTE | 2019-02-27 14:51 | CRPH1.INSTRU ---
General Education CAD and cardiac anatomy and function:: Patient communicates acknowledgment Explanation of diagnoses and procedures:: Patient communicates acknowledgment Sign/Symptoms of MN:: Patient communicates acknowledgment Antiplatelet therapy: Patient communicates acknowledgment Proper use of NTG-SL: Patient communicates acknowledgment Emergency procedures and activation of EMS: Patient communicates acknowledgment Compliance of all prescribed medications: Patient communicates acknowledgment Smoking Patient Nicotine/Smoking Risk Factors Are:: Non-smoker Dyslipidemia Dyslipidemia Response Code:: Patient communicates acknowledgment Overweight/Obesity Patient Overweight/Obesity Risk Factors Are:: BMI Normal [18-25 & < 65 years old] Hypertension Hypertension:: Patient communicates acknowledgment Heart Disease Patient Heart Disease Risk Factors Are:: Family history of heart disease < 65 years old Heart Disease Response Code:: Patient communicates acknowledgment Diabetes Patient Diabetes Risk Factors Are:: No documented hx of diabetes Diabetes:: Patient communicates acknowledgment Metabolic Syndrome Metabolic Syndrome Response Code:: Patient communicates acknowledgment Sedentary Sedentary Response Code:: Patient communicates acknowledgment Stress Stress Response Code:: Patient communicates acknowledgment
[2019-02-27] MEDS: 0.9% Normal Saline 1,000 ML 100 ML IV (15:15)
--- NOTE | 2019-02-27 15:23 | CL.D_ITS ---
Patient Name: HUBERT DAVIS Study Date: 02/27/2019 Performing: Jakub Bradshaw MD Ht: 61.42 inches 156 cm : 1935 Wt: 134.48 lbs 61 kg Age: 83 Gender: female BSA: 1.6 PROCEDURE(S) PERFORMED [id number]/LV [id number], CORONARY OR GRAFT, INITIAL VESSEL [id number] W OR WO PTCA, SINGLE CORONARY ARTERY CLINICAL PROFILE AND INDICATIONS Indications: ACS > 24 hrs, Worsening Angina, Suspected CAD Heart Failure: None Stress/Imaging Stress/Image Study Performed: No Stress/Image Study Performed: No Angina Classification Anginal Classification w/in 2 Weeks: CCS III CAD Presentations: Unstable angina. Other: Worsening Angina CONCLUSIONS Normal LV size, wall motion,and systolic function Elevated Left Ventricular End Diastolic Pressure Normal LV size, wall motion,and systolic function LVEF: by LV gram 65 % [place] Multivessel CAD Aortic Root: possibly dilated Mitral Valve Prolapse Mild RECOMMENDATIONS Risk factor modification Medical therapy Staged for IVUS and possible PCI of the LAD DESCRIPTION OF PROCEDURE The patient arrived to the procedure lab. The risks and benefits of the procedure as well as a full d escription of our services here and current unavailability of surgical backup were fully explained to the patient and/or their significant other prior to the catheterization. The Timeout was completed, verifying the correct patient and procedure. The patient's procedural site was prepped and draped in the usual fashion. Local anesthetic was given subcutaneously to right radial region with Lidocaine 2% . Using a modified Seldinger technique, arterial access was obtained via the right radial artery, a 6 Fr sheath was inserted. Left Coronary Artery selective angiography was performed in multiple views u sing a 5 Fr. 4.0 [place] catheter. Right Coronary Artery selective angiography was then performed in mu ltiple views using a 5 Fr. 4.0 [place] catheter. Left Ventriculography was performed in HARRELL projection using a 5 Fr. Pigtail catheter. LV to AO pullback pressures were then recorded.The arterial sheath was pulled and a TR Band was applied for hemostasis 16cc air CORONARY ANGIOGRAPHY DOMINANCE: Right Dominant LEFT HEART ASSESSMENT Left Ventricular Ejection Fraction: by LV Gram 65 % Normal LV wall motion Elevated Left Ventricular End Diastolic Pressure LVEDP: 19 mmHg LEFT MAIN: Mild luminal irregularities LEFT ANTERIOR DESCENDING ARTERY: PROX LAD: Hazy; Eccentric; 75 % Stenosis MID LAD: Mild luminal irregularities DIAGONAL 1: Proximal - Mild luminal irregularities CIRCUMFLEX ARTERY: PROX CIRC: Mild luminal irregularities RIGHT CORONARY ARTERY: Diffuse; Eccentric: 25 % Stenosis VALVE FINDINGS: Normal Aortic Valve function Mitral Valve Prolapse Mild AORTIC ROOT: Possibly Dilated possibly dilated COMPLICATIONS No Complications PROCEDURE MEDICATIONS Versed 1 mg IV Fentanyl 50 mcg IV Versed 1 mg IV Oxygen: 2 L/min via nasal cannula Heparin diluted in 23cc Heparinized saline. Patient given 10cc IA of this solution. 02/27/2019 12:33: 02 Heparin 2000 unit(s) IV 02/27/2019 13:10:20 Verapamil 2.5mg, Ntg 100mcgs, 2000 units of Heparin diluted in 23cc Heparinized saline. Patient give n 10cc IA of this solution. 02/27/2019 12:33:02 SUMMARY OF HEMODYNAMIC DATA Time AIR REST ECG 11:57:23 AO 144/89 (114) SA 12:35:25 LV 168/-11, 23 12:44:47 LV 181/-17, 19 12:44:54 LV 182/-3, 32 12:45:58 LV 177/-8, 29 12:46:04 LVp 173/-10, 26 12:46:10 AOp 188/89 (136) 12:46:15 AO 167/78 (120) 13:10:48 Signed By Jakub Bradshaw MD On 02/27/2019 3:22:00 PM Jakub Bradshaw MD
[2019-02-27] MEDS: Ondansetron 4 MG/2 ML Vial IV (16:58)
--- NOTE | 2019-02-27 17:10 | PN_ITS ---
Patient Problems: Active and Suspected Problems (Last Reviewed 02/26/19 @ 16:47 by Tejas Kim DO) Chest pain (Acute) Elevated troponin (Acute) Unstable angina (Acute) Subjective: Seen and examined. Patient was admitted for 2 to 3 days of chest pain/tightness with radiation to left jaw on exertion along with shortness of breath. Seen by [facility] consultant and recommended cardiac cath. Vitals/I&O's: Vital Signs Temp Pulse Resp BP Pulse Ox 98.3 F 79 12 170/77 H 98 02/27/19 09:58 02/27/19 16:15 02/27/19 16:15 02/27/19 16:15 02/27/19 16:15 Oxygen Delivery Method Room Air Weight: 133 lb Body Mass Index (BMI) 24.8 Intake and Output for Last 24 Hours 02/25/19 02/26/19 02/27/19 23:59 23:59 23:59 Intake Total 480 / 480 Balance 480 / 480 General: Alert, Oriented x3, Cooperative HEENT: Atraumatic, PERRLA, EOMI, Normocephalic Neck: Supple, No JVD, Negative Carotid Bruits Lungs: Clear to auscultation, Normal air movement, No rhonchi, No wheeze, No rales Cardiovascular: Regular rate, Regular Rhythm, Normal S1, Normal S2, No murmurs Abdomen: Bowel Sounds Present, Soft, Non Tender, Non-Distended Extremities: Capillary Refill Less than 3 Seconds, Edema - Mild edema Skin: No rashes, No breakdown Musculoskeletal: No Tenderness to Palpation of Joints or Extremities, Arthritic Changes Neurological: Cranial nerves II-XII grossly intact, Deep Tendon Reflexes 2+/4 and Symmetrical, Neuro grossly intact, Motor Exam 5/5 strength throughout Psych/Mental Status: Normal Affect, Appropriate Laboratory Results 02/26/19 16:58: Troponin I 0.208 H 02/26/19 20:10: Troponin I 0.213 H 02/27/19 05:05: PT 13.5, INR 1.1 02/27/19 05:05: Sodium 138, Potassium 4.1, Chloride 103, Carbon Dioxide 27.0, Anion Gap 8, BUN 24 H, Creatinine 1.16 H, Estim Creat Clear Calc 28.22, Est GFR (MDRD) Af Amer 57 L, Est GFR (MDRD) Non-Af 47 L, BUN/Creatinine Ratio 20.7 H, Glucose 98, Calcium 9.2 02/27/19 13:36: Activated Clotting Time 158 H Current Medications Acetaminophen (Tylenol) 650 mg PO Q6H PRN PRN PRN Reason: Mild pain 1-3/Temp > 100.7 F Last Admin: 02/27/19 02:08 Dose: 325 mg Documented by: Alprazolam (Xanax) 0.125 mg PO Q8H PRN PRN PRN Reason: ANXIETY Ascorbic Acid (Vitamin C) 500 mg PO QODAY [facility] Aspirin (Aspirin, Baby) 81 mg PO DAILY@0800 [facility] Last Admin: 02/27/19 10:09 Dose: 81 mg Documented by: Atropine Sulfate () 0.5 mg IV UD PRN PRN Reason: HR <50 bpm Calcium Carbonate (Tums) 500 mg PO DAILY@0800 [facility] Last Admin: 02/27/19 10:10 Dose: 500 mg Documented by: Cholecalciferol (Vitamin D) 1,000 unit PO DAILY [facility] Cyanocobalamin (Vitamin B12) 1,000 mcg PO QODAY [facility] Enoxaparin Sodium (Lovenox) 60 mg SC DAILY [facility] Last Admin: 02/27/19 10:07 Dose: Not Given Documented by: Heparin Sodium (Beef Lung) (Heparin 500 Unit/5 Ml (100/Ml)) 500 unit IV UD PRN PRN Reason: HEPARIN FLUSH Sodium Chloride () 1,000 mls @ 100 mls/hr IV .Q10H [facility] Stop: 02/27/19 23:49 Last Admin: 02/27/19 15:15 Dose: 100 mls/hr Documented by: Labetalol HCl (Trandate) 5 mg IV X1 PRN PRN Reason: SBP > 160 when pulling sheath Stop: 03/01/19 13:50 Levothyroxine Sodium (Synthroid) 25 mcg PO MoTuWeThFr@0600 [facility] Last Admin: 02/27/19 05:12 Dose: 25 mcg Documented by: Levothyroxine Sodium (Synthroid) 50 mcg PO SuSa@0600 [facility] Morphine Sulfate () 2 mg IV Q3H PRN PRN PRN Reason: Severe Pain (7-10/10) Multivitamins (Allbee W/C Caplet, Thera B Comp/C) 1 capsule PO Q48@0800 [facility] Nitroglycerin (Nitrostat) 0.4 mg SUBLINGUAL Q5M PRN PRN Reason: CARDIAC/CHEST PAIN Ondansetron HCl (Zofran) 4 mg IV Q8H PRN PRN PRN Reason: NAUSEA/VOMITING Last Admin: 02/27/19 16:58 Dose: 4 mg Documented by: Oxycodone HCl (Oxyir) 5 mg PO Q4H PRN PRN PRN Reason: Moderate Pain (4-6/10) Sodium Chloride () 10 - 40 ml IV UD PRN PRN Reason: SALINE FLUSH Last Admin: 02/27/19 11:41 Dose: 10 ml Documented by: Sodium Chloride () 500 ml IV BOLUS PRN PRN Reason: VASO-VAGAL PROTOCOL Ticagrelor (Brilinta) 90 mg PO BID [facility] Medical Necessity - Tobacco Use Smoking Status: Never smoker Assessment/Plan All Active Problems (Last Reviewed 02/26/19 @ 16:47 by Tejas Kim DO) Chest pain (Acute) Elevated troponin (Acute) Unstable angina (Acute) Cataract (Resolved) Old myocardial infarction (Resolved) Troponin I above reference range (Resolved) Chest pain (Resolved) This 89-year-old female with history of mild coronary artery disease with heart cath in 2015 showed mild coronary artery disease came to ER with midsternal chest tightness with radiation to left jaw on exertion along with shortness of breath for few days. 1. Unstable angina/ non-STEMI: Patient troponins are mildly elevated. Cardiac cath showed EF 65% by LV gram. Proximal LAD 75% eccentric that required PCI. Diffuse RCA 25%. Patient transferred to ICU after PCI. The patient on aspirin, Brilinta, and add labetalol 5 mg IV 1 dose was given. Patient is allergic to statins. Coreg was added. Lipid profile for tomorrow a.m. 2. Heart failure with preserved EF, chronic. EF 65% by LV gram. EF was 60% on echo in June 2018. Currently does not have signs and symptoms of acute heart failure. 3. Hypertension: Blood pressure is elevated.: 170/77: Add losartan 50 mg daily. Follow BMP tomorrow a.m. Discontinue if platelet count drops less than 50,000 or hemoglobin less than 8 g% Laboratory 02/26/19 16:58: Troponin I 0.208 H 02/26/19 20:10: Troponin I 0.213 H 02/27/19 05:05: PT 13.5, INR 1.1 02/27/19 05:05: Sodium 138, Potassium 4.1, Chloride 103, Carbon Dioxide 27.0, Anion Gap 8, BUN 24 H, Creatinine 1.16 H, Estim Creat Clear Calc 28.22, Est GFR (MDRD) Af Amer 57 L, Est GFR (MDRD) Non-Af 47 L, BUN/Creatinine Ratio 20.7 H, Glucose 98, Calcium 9.2 02/27/19 13:36: Activated Clotting Time 158 H Code Visit Inpatient E&M: 03753 Subs Hosp L3
[2019-02-27] MEDS: Ascorbic Acid 500 MG Tablet PO (17:54)
[2019-02-27] MEDS: Vitamin B Comp W-C Capsule 1 CAP PO (17:54)
[2019-02-27] MEDS: Losartan Potassium 50 MG Tablet PO (17:55)
--- NOTE | 2019-02-27 18:18 | PN.CARD_ITS ---
Subjectve: The patient is status post diagnostic cardiac catheterization and subsequent LAD intravascular ultrasound and LAD PCI. She appears to be resting comfortably at this time. Objective: Vital Signs Temp Pulse Resp BP Pulse Ox 98.3 F 87 14 158/83 H 98 02/27/19 09:58 02/27/19 18:00 02/27/19 18:00 02/27/19 18:00 02/27/19 17:30 Oxygen Delivery Method Room Air Weight: 133 lb Body Mass Index (BMI) 24.8 Intake and Output for Last 24 Hours 02/25/19 02/26/19 02/27/19 23:59 23:59 23:59 Intake Total 480 / 480 Balance 480 / 480 General: Awake, Alert, Oriented x 3, Cooperative, No Acute Distress HEENT: Atraumatic, Normocephalic, PERRL, EOMI, Sclera Non Icteric Oral: Moist Mucosa Neck: Supple, Good ROM, No JVD Lungs: Clear to auscultation Cardiovascular: Regular Rhythm, Normal S1, Normal S2 Vascular: Normal Radial Pulses Abdomen: Bowel Sounds Present, Soft, Non Tender Extremities: No Cyanosis, No Clubbing, No edema Neurological: No Focal Motor or Sensory Deficit Psych/Mental Status: Appropriate 02/26/19 20:10: Troponin I 0.213 H 02/27/19 05:05: PT 13.5, INR 1.1 02/27/19 05:05: Sodium 138, Potassium 4.1, Chloride 103, Carbon Dioxide 27.0, Anion Gap 8, BUN 24 H, Creatinine 1.16 H, Est GFR (MDRD) Af Amer 57 L, Est GFR (MDRD) Non-Af 47 L, BUN/Creatinine Ratio 20.7 H, Glucose 98, Calcium 9.2 Rhythm: Sinus rhythm Medical Necessity - Tobacco Use Smoking Status: Never smoker Assessment/Plan 1. CAD status post LAD PCI The patient presented with concerning symptoms. Her laboratory studies were reviewed. It was elected to take the patient to the cardiac catheterization laboratory for further evaluation. She was noted to have concerning LAD findings and subsequently underwent intravascular ultrasound of her LAD which then led to LAD PCI. She is currently resting in the ICU with no acute adverse events. At the present time she will continue medical management. This will include agents such as her aspirin, antiplatelet agents, nitrates as needed, beta- blockers, afterload reducing agents, etc. She has been reportedly intolerant to statin therapy. 2. Diastolic dysfunction She has a history of diastolic dysfunction and potentially diastolic mediated CHF. She appears to be without any acute symptoms of CHF and/or pulmonary edema at this time. She will continue medical management and follow-up as deemed appropriate. 3. Valvular heart disease There is been concern of underlying valvular heart disease in the past. It may be reasonable to further assess the patient with a transthoracic echocardiogram to further define her valvular anatomy and physiology. 4. Hyperlipidemia The patient has a history of hyperlipidemia. She reportedly has been intolerant to statins. Consideration might be given as to further evaluation care of her lipid labs especially noting her underlying CAD. 5. Hypertension She will have medical adjustment to assist with her blood pressure control. Comment: The above was discussed and reviewed with the patient and Dr. Francisco. This note was generated using a voice recognition system and there may be incorrect words, spelling or punctuation that were not noted when reviewing the office note prior to saving.
--- NOTE | 2019-02-27 18:24 | ECHOD_ITS ---
Reason For Study: MVP Procedure This was a 2D Doppler, Color Flow transthoracic echocardiogram. Exam performed portable in ICU/CCU. Left Ventricle Normal LV size. Left ventricular systolic function is normal. The estimated ejection fraction is 60 %. Diastolic function is indeterminate. No regional wall motion abnormalities noted. Right Ventricle Normal RV size. Normal systolic function. Atria The left atrium is mildly enlarged. Normal right atrium. No doppler evidence for ASD. Mitral Valve There is no mitral annular calcification. Mild diffuse mitral valve thickening. 2D echocardiographic images appearing c/w redundant and / or ruptured chordae tendonae. Mild to moderate mitral valve prolapse. Mild-Moderate (1-2+) eccentric mitral valve insufficiency. Tricuspid Valve Normal tricuspid valve. Moderate (2+) tricuspid valve insufficiency. Right ventricular systolic pressure estimated to be 35 mmHg. Aortic Valve Trisinus/trileaflet aortic valve. Mild diffuse aortic valve thickening. Mild focal aortic valve calcification. Mild-Moderate (1-2+) aortic valve insufficiency. Pulmonic Valve The pulmonic valve is not well visualized. Great Vessels The aortic root is not well visualized. Pericardium/Pleural Trivial pericardial effusion. There are no echocardiographic indications of cardiac tamponade. MMode/2D Measurements & Calculations LVIDd: 4.8 cm IVSd: 0.89 cm LA dimension: 3.4 cm LVIDs: 3.6 cm LVPWd: 0.87 cm RVDd: 2.7 cm FS: 25.2 % LAV(MOD-sp4): 46.5 ml LA A4 area: 17.7 cm2 RA A4 area: 17.0 cm2 Time Measurements MV dec time: 0.17 sec Doppler Measurements & Calculations MV E max bradford: 47.7 cm/sec Lat Peak E' Bradford: 4.7 cm/sec Med Peak E' Bradford: 6.5 cm/sec MV A max bradford: 65.8 cm/sec E/E' lat: 10.1 E/E' med: 7.4 MV E/A: 0.73 MV V2 max: 73.8 cm/sec MV P1/2t max bradford: 46.6 cm/sec Ao V2 max: 127.2 cm/sec MV max P.2 mmHg MV P1/2t: 50.3 msec Ao max P.5 mmHg MV V2 mean: 33.3 cm/sec MV dec slope: 271.3 cm/sec2 MV mean P.55 mmHg MVA(P1/2t): 4.4 cm2 MV V2 VTI: 18.1 cm AI max bradford: 520.3 cm/sec LV V1 max: 97.6 cm/sec MR max bradford: 602.8 cm/sec AI max P.4 mmHg LV V1 max P.8 mmHg MR max P.4 mmHg MR mean bradford: 452.4 cm/sec AI dec slope: 315.1 cm/sec2 MR mean P.0 mmHg AI P1/2t: 483.6 msec MR VTI: 221.6 cm PA V2 max: 75.1 cm/sec TR max bradford: 284.1 cm/sec TR max P.3 mmHg Interpretation Summary Left ventricular systolic function is normal. The estimated ejection fraction is 60 %. The left atrium is mildly enlarged. Mild to moderate mitral valve prolapse. Mild diffuse mitral valve thickening. 2D echocardiographic images appearing c/w redundant and / or ruptured chordae tendonae. Mild-Moderate (1-2+) eccentric mitral valve insufficiency. Moderate (2+) tricuspid valve insufficiency. Mild diffuse aortic valve thickening. Mild focal aortic valve calcification. Mild-Moderate (1-2+) aortic valve insufficiency. Trivial pericardial effusion. There are no echocardiographic indications of cardiac tamponade. Right ventricular systolic pressure estimated to be 35 mmHg. Diastolic function is indeterminate. Ordering Physician: Jakub Bradshaw Referring Physician: Dori Boyd M.D. Performed By: Chris Holloway RCS
[2019-02-27] MEDS: TICAGRELOR 90 MG TABLET PO (21:44)
[2019-02-27] MEDS: Carvedilol 6.25 MG Tablet PO (21:48)
[2019-02-28] VITALS (29 sets, daily range): BP systolic 76–158; BP diastolic 46–83; PULSE 55–90; RESP 8–20; TEMP 36.6–36.7; O2SAT 93–99
[2019-02-28] MEDS: Acetaminophen 325 MG Tablet 650 MG PO (04:05)
[2019-02-28] MEDS: Levothyroxine 50 MCG Tablet PO (04:05)
[2019-02-28 04:26] LABS: Hematocrit 39.4 % (37-47); Hemoglobin 13.4 g/dl (12.0-15.0); Mean Corpuscular Hgb 29.5 pg (27.0-32.0); Mean Corpuscular Volume 86.8 fL (81-99); Mean Platelet Vol. 8.8 fl (6.2-12.0); Platelet Count 197 K/mm3 (150-450); RBC Distribution Width CV 13.4 % (11.6-14.6); RBC Distribution Width SD 42.6 fl (35.1-43.9); Red Blood Count 4.54 M/mm3 (4.2-5.4); Scan Indicated on CBC? Y/N NO; White Blood Count 6.5 K/mm3 (4.4-11.0)
[2019-02-28 04:41] LABS: ALB/GLOB Ratio 0.9 RATIO (0.9-2.4); AST(SGOT) 32 U/L (15-37); Alanine Aminotransfer ALT/SGPT 20 U/L (13-56); Albumin, Serum 3.6 g/dL (3.2-5.0); Alkaline Phosphatase 62 U/L (45-117); Anion Gap 8 (5-15); BUN 17 mg/dL (7-18); BUN/Creat Ratio 16.3 RATIO (10-20); Calcium,Total 9.2 mg/dL (8.5-10.1); Chloride 103 mmol/L (98-107); Cholesterol 216 mg/dL (200); Creatinine, Serum 1.04 mg/dL (0.55-1.02); EST Glomerular Filtration Rate 54 mL/min (>60); Est Glom Filt Rate - Afr Amer 65 mL/min (>60); Estimated Creatinine Clearance 36.01 ml/min; Globulin 3.9 g/dL (2.2-4.2); Glucose 106 mg/dL (74-106); High Density Lipoprotein 77 mg/dL; Potassium 4.1 mmol/L (3.5-5.1); Protein, Total 7.5 g/dL (6.4-8.2); Sodium Level 136 mmol/L (136-145); Triglycerides 59 mg/dL; Very Low Density Lipoprotein 12 mg/dL (5-40)
[2019-02-28] MEDS: Calcium Carbonate 500 MG Tablet PO (08:29)
[2019-02-28] MEDS: Aspirin 81 MG TAB.CHEW PO (08:29)
[2019-02-28] MEDS: TICAGRELOR 90 MG TABLET PO ×2 (08:29→21:36)
[2019-02-28] MEDS: Losartan Potassium 50 MG Tablet PO (08:31)
[2019-02-28] MEDS: Cyanocobalamin 500 MCG Tablet 1000 MCG PO (08:32)
[2019-02-28] MEDS: Ascorbic Acid 500 MG Tablet PO (08:32)
[2019-02-28] MEDS: Carvedilol 6.25 MG Tablet PO (08:35)
--- NOTE | 2019-02-28 10:00 | EKG12_ITS ---
Test Reason : Blood Pressure : / mmHG Vent. Rate : 057 BPM Atrial Rate : 057 BPM P-R Int : 136 ms QRS Dur : 114 ms QT Int : 442 ms P-R-T Axes : 048 004 032 degrees QTc Int : 430 ms Sinus bradycardia [id number] Septal infarct , age undetermined , cannot be excluded Abnormal ECG Confirmed by CHAPITO MARCANO, SHAHZAD ([id number]), news videotape editor JEFFREY RODRIGUEZ ([id number]) on 03/04/2019 12:50:15 PM Referred By: Kay URIARTE Confirmed By:SHAHZAD URIARTE MD
--- NOTE | 2019-02-28 10:58 | NURSING ---
dr gonsales in room pt became bradycardiac,diaphoretic,bp 76/47, nonverbal briefly ns bolus 500cc infusing, assisted back to bed ekg completed, bp 105/63 sb hr 58, co nausea medicated with zofran as per order
[2019-02-28] MEDS: 0.9% Normal Saline 500 ML IV.SOLN. IV (11:00)
[2019-02-28] MEDS: Ondansetron 4 MG/2 ML Vial IV (11:16)
[2019-02-28] MEDS: 0.9% NaCl Peripheral Flush Adult/Peds IV (11:16)
--- NOTE | 2019-02-28 11:18 | NURSING ---
bp 112/57 hr 59 sb, resting in bed able to answer questions, @ bedside
[2019-02-28] MEDS: 0.9% Normal Saline 1,000 ML 100 ML IV ×3 (11:30→23:26)
--- NOTE | 2019-02-28 11:45 | PCM.PN.CARD ---
Subjectve: The patient has been awake and alert. She had denied any acute symptoms yesterday evening, throughout the night, or this morning. During her evaluation this morning sitting in her bedside chair she became dizzy and nauseated. At that time she was noted to have developed sinus bradycardia/marked sinus bradycardia/junctional rhythm-bradycardia/idioventricular rhythm with subsequent hypotension. She was noted to have her eyes open but was slow to respond. She was then noted to regain sinus rhythm/sinus bradycardia just prior to receiving IV atropine. She did not receive IV atropine. She did receive IV normal saline bolus/infusion. She was subsequently returned to her bed. He was performed. She continued with sinus rhythm with her underlying right IVCD with no definitive acute ECG changes. As her heart rate and blood pressure improved she began to feel better. She had denied any chest discomfort or difficulty breathing. Objective: Vital Signs Temp Pulse Resp BP Pulse Ox 98.1 F 90 11 L 147/69 H 94 02/28/19 04:00 02/28/19 06:00 02/28/19 06:00 02/28/19 06:00 02/28/19 06:00 Oxygen Delivery Method Room Air Weight: 133 lb Body Mass Index (BMI) 24.8 Intake and Output for Last 24 Hours 02/26/19 02/27/19 02/28/19 23:59 23:59 23:59 Intake Total 1743 / 1743 100 / 100 Output Total 1300 / 1300 Balance 443 / 443 100 / 100 General: Awake, Alert, Oriented x 3, Cooperative HEENT: Atraumatic, Normocephalic, PERRL, EOMI, Sclera Non Icteric Oral: Moist Mucosa Neck: Supple, Good ROM, No JVD Lungs: Clear to auscultation Cardiovascular: Regular Rhythm, Normal S1, Normal S2 Murmur Murmur: Grade 2/6, Soft, Mid Systolic, LLSB, [place] Vascular: Normal Radial Pulses Abdomen: Bowel Sounds Present, Soft, Non Tender Extremities: No edema Neurological: No Focal Motor or Sensory Deficit Psych/Mental Status: Appropriate 02/28/19 04:10: WBC 6.5, RBC 4.54, Hgb 13.4, Hct 39.4, MCV 86.8, MCH 29.5, MCHC 34.0, RDW 13.4, RDW Differential 42.6, Plt Count 197, MPV 8.8 06/29/19 04:10: Sodium 136, Potassium 4.1, Chloride 103, Carbon Dioxide 25.0, Anion Gap 8, BUN 17, Creatinine 1.04 H, Est GFR (MDRD) Af Amer 65, Est GFR (MDRD) Non-Af 54 L, BUN/Creatinine Ratio 16.3, Glucose 106, Calcium 9.2, Total Bilirubin 0.60, Triglycerides 59, Cholesterol 216 H, LDL Cholesterol 127, VLDL Cholesterol 12, HDL Cholesterol 77 Rhythm: Cardiac rhythm as noted above EKG: ECG from earlier this a.m. demonstrated sinus rhythm with left axis deviation with a right bundle branch block pattern. Follow-up ECG as noted above. ECHO: 02-28-19 Interpretation Summary Left ventricular systolic function is normal. The estimated ejection fraction is 60 %. The left atrium is mildly enlarged. Mild to moderate mitral valve prolapse. Mild diffuse mitral valve thickening. 2D echocardiographic images appearing c/w redundant and / or ruptured chordae tendonae. Mild-Moderate (1-2+) eccentric mitral valve insufficiency. Moderate (2+) tricuspid valve insufficiency. Mild diffuse aortic valve thickening. Mild focal aortic valve calcification. Mild-Moderate (1-2+) aortic valve insufficiency. Trivial pericardial effusion. There are no echocardiographic indications of cardiac tamponade. Right ventricular systolic pressure estimated to be 35 mmHg. Diastolic function is indeterminate. Cardiac Cath: 02-27-19 CORONARY ANGIOGRAPHY DOMINANCE: Right Dominant LEFT HEART ASSESSMENT Left Ventricular Ejection Fraction: by LV Gram 65 % Normal LV wall motion Elevated Left Ventricular End Diastolic Pressure LVEDP: 19 mmHg LEFT MAIN: Mild luminal irregularities LEFT ANTERIOR DESCENDING ARTERY: PROX LAD: Hazy; Eccentric; 75 % Stenosis MID LAD: Mild luminal irregularities DIAGONAL 1: Proximal - Mild luminal irregularities CIRCUMFLEX ARTERY: PROX CIRC: Mild luminal irregularities RIGHT CORONARY ARTERY: Diffuse; Eccentric: 25 % Stenosis VALVE FINDINGS: Normal Aortic Valve function Mitral Valve Prolapse Mild AORTIC ROOT: Possibly Dilated PCI: 02-27-19 CONCLUSIONS Successful IVUS guided PCI of pLAD with OZIEL Medical Necessity - Tobacco Use Smoking Status: Never smoker Assessment/Plan 1. CAD status post LAD PCI At the present time the patient has been recuperating from her cardiac catheterization/PCI. She has had no obvious adverse cardiovascular events with respect to her underlying CAD process. She does need to continue risk factor modification medical management as deemed appropriate. 2. Diastolic dysfunction She has a history of diastolic dysfunction and potentially diastolic mediated CHF. She appears to be without any acute symptoms of CHF and/or pulmonary edema at this time. She will continue medical management and follow-up as deemed appropriate. 3. Valvular heart disease There is been concern of underlying valvular heart disease in the past. She did have a repeat transthoracic echocardiogram as noted above. She continues with evidence of underlying valvular heart disease. At the moment she will continue follow-up by history, exam, and echocardiogram as deemed appropriate. 4. Hyperlipidemia The patient has a history of hyperlipidemia. She reportedly has been intolerant to statins. He states her intolerance has been myalgias. She believes she is only been on one statin in the past. She states at home she has been attempting colestipol but has difficulty taking it on a regular scheduled basis. Status post a lengthy discussion with her she was agreeable to reattempting a low dose alternative statin and monitor for intolerance as well as monitoring her lipid labs. 5. Hypertension She will have medical adjustment to assist with her blood pressure control. 6. Bradycardia/hypotension As noted above, during the patient's evaluation, she was noted to become bradycardic, hypotensive, and symptomatic. Her episode. Compatible with a vasovagal mediated type of event. However, contribution from her newly started beta-orion therapy and ARB therapy could not be excluded. She had no acute symptoms similar to her presentation with respect to her chest discomfort/CAD symptoms. Her ECG demonstrated no definitive acute ECG changes. She was noted to be symptomatically improved after being returned to bed and receiving IV fluids and noting increase in her heart rate and blood pressure. At the present time she will continue to be monitored. She will receive IV fluids. Her beta-blockers will be placed on hold. Her newly started antihypertensive therapy with ARB dose will be adjusted. She will receive additional evaluation care as deemed appropriate. Comment: The above was discussed and reviewed with the patient, her spouse, and and Dr. Francisco. This note was generated using a voice recognition system and there may be incorrect words, spelling or punctuation that were not noted when reviewing the office note prior to saving.
--- NOTE | 2019-02-28 14:26 | PN_ITS ---
Patient Problems: Active and Suspected Problems (Last Reviewed 02/26/19 @ 16:47 by Tejas Kim DO) Chest pain (Acute) Elevated troponin (Acute) Unstable angina (Acute) Subjective: Patient was seen and examined in the morning. There is plan for possible discharge but that is held as the patient got dizzy, lightheaded with sydni cardia/junctional bradycardia with idioventricular rhythm with associated hypotension. This was transient and resolved without any medications. Dr. Bradshaw informed me. IV atropine initially was ordered but patient did not receive as it got resolved spontaneously. Vitals/I&O's: Vital Signs Temp Pulse Resp BP Pulse Ox 98.1 F 61 18 127/66 H 98 02/28/19 12:00 02/28/19 12:00 02/28/19 12:00 02/28/19 12:00 02/28/19 12:00 Oxygen Flow Rate (L/min) 2 Oxygen Delivery Method Nasal Cannula Weight: 133 lb Body Mass Index (BMI) 24.8 Intake and Output for Last 24 Hours 02/26/19 02/27/19 02/28/19 23:59 23:59 23:59 Intake Total 1743 / 1743 1000 / 1000 Output Total 1300 / 1300 600 / 600 Balance 443 / 443 400 / 400 General: Alert, Oriented x3, Cooperative HEENT: Atraumatic, PERRLA, EOMI, Normocephalic Neck: Supple, No JVD, Negative Carotid Bruits Lungs: Clear to auscultation, Normal air movement Cardiovascular: Regular rate, Regular Rhythm, Normal S1, Normal S2, Murmur - Pansystolic murmur over apex, mitral valve area. Systolic murmur over left lower sternal border., - - Transient bradycardia/junctional bradycardia. Abdomen: Bowel Sounds Present, Soft, Non Tender, Non-Distended Extremities: No edema, Capillary Refill Less than 3 Seconds Skin: No rashes, No breakdown Musculoskeletal: No Tenderness to Palpation of Joints or Extremities Neurological: Cranial nerves II-XII grossly intact Psych/Mental Status: Normal Affect, Appropriate Laboratory Results 02/28/19 04:10: WBC 6.5, RBC 4.54, Hgb 13.4, Hct 39.4, MCV 86.8, MCH 29.5, MCHC 34.0, RDW 13.4, RDW Differential 42.6, Plt Count 197, MPV 8.8 02/28/19 04:10: Sodium 136, Potassium 4.1, Chloride 103, Carbon Dioxide 25.0, Anion Gap 8, BUN 17, Creatinine 1.04 H, Estim Creat Clear Calc 36.01, Est GFR (M DRD) Af Amer 65, Est GFR (MDRD) Non-Af 54 L, BUN/Creatinine Ratio 16.3, Glucose 106, Calcium 9.2, Total Bilirubin 0.60, AST 32, ALT 20, Alkaline Phosphatase 62, Total Protein 7.5, Albumin 3.6, Globulin 3.9, Albumin/Globulin Ratio 0.9, Triglycerides 59, Cholesterol 216 H, LDL Cholesterol 127, VLDL Cholesterol 12, HDL Cholesterol 77 Current Medications Acetaminophen (Tylenol) 650 mg PO Q6H PRN PRN PRN Reason: Mild pain 1-3/Temp > 100.7 F Last Admin: 02/28/19 04:05 Dose: 325 mg Documented by: Alprazolam (Xanax) 0.125 mg PO Q8H PRN PRN PRN Reason: ANXIETY Ascorbic Acid (Vitamin C) 500 mg PO QODAY ON LICENSE OF [facility] Last Admin: 02/28/19 08:32 Dose: 500 mg Documented by: Aspirin (Aspirin, Baby) 81 mg PO DAILY@0800 ON LICENSE OF [facility] Last Admin: 02/28/19 08:29 Dose: 81 mg Documented by: Atropine Sulfate () 0.5 mg IV UD PRN PRN Reason: HR <50 bpm Calcium Carbonate (Tums) 500 mg PO DAILY@0800 ON LICENSE OF [facility] Last Admin: 02/28/19 08:29 Dose: 500 mg Documented by: Cholecalciferol (Vitamin D) 1,000 unit PO DAILY ON LICENSE OF [facility] Last Admin: 02/28/19 08:32 Dose: 1,000 unit Documented by: Cyanocobalamin (Vitamin B12) 1,000 mcg PO QODAY ON LICENSE OF [facility] Last Admin: 02/28/19 08:32 Dose: 1,000 mcg Documented by: Heparin Sodium (Beef Lung) (Heparin 500 Unit/5 Ml (100/Ml)) 500 unit IV UD PRN PRN Reason: HEPARIN FLUSH Hydralazine HCl (Apresoline Iv) 10 mg IV Q6H PRN PRN PRN Reason: SBP>180 mmhg Sodium Chloride () 1,000 mls @ 100 mls/hr IV .Q10H ON LICENSE OF [facility] Last Admin: 02/28/19 11:30 Dose: 100 mls/hr Documented by: Labetalol HCl (Trandate) 5 mg IV X1 PRN PRN Reason: SBP > 160 when pulling sheath Stop: 03/01/19 13:50 Levothyroxine Sodium (Synthroid) 25 mcg PO MoTuWeThFr@0600 ON LICENSE OF [facility] Last Admin: 02/27/19 05:12 Dose: 25 mcg Documented by: Levothyroxine Sodium (Synthroid) 50 mcg PO SuSa@0600 ON LICENSE OF [facility] Last Admin: 02/28/19 04:05 Dose: 50 mcg Documented by: Losartan Potassium (Cozaar) 25 mg PO DAILY ON LICENSE OF [facility] Morphine Sulfate () 2 mg IV Q3H PRN PRN PRN Reason: Severe Pain (7-10/10) Multivitamins (Allbee W/C Caplet, Thera B Comp/C) 1 capsule PO Q48@0800 ON LICENSE OF [facility] Last Admin: 02/27/19 17:54 Dose: 1 capsule Documented by: Nitroglycerin (Nitrostat) 0.4 mg SUBLINGUAL Q5M PRN PRN Reason: CARDIAC/CHEST PAIN Ondansetron HCl (Zofran) 4 mg IV Q8H PRN PRN PRN Reason: NAUSEA/VOMITING Last Admin: 02/28/19 11:16 Dose: 4 mg Documented by: Oxycodone HCl (Oxyir) 5 mg PO Q4H PRN PRN PRN Reason: Moderate Pain (4-6/10) Pravastatin Sodium (Pravachol) 20 mg PO QHS ON LICENSE OF [facility] Sodium Chloride () 10 - 40 ml IV UD PRN PRN Reason: SALINE FLUSH Last Admin: 02/28/19 11:16 Dose: 10 ml Documented by: Sodium Chloride () 500 ml IV BOLUS PRN PRN Reason: VASO-VAGAL PROTOCOL Last Admin: 02/28/19 11:00 Dose: 500 ml Documented by: Ticagrelor (Brilinta) 90 mg PO BID ON LICENSE OF [facility] Last Admin: 02/28/19 08:29 Dose: 90 mg Documented by: Medical Necessity - Tobacco Use Smoking Status: Never smoker Assessment/Plan All Active Problems (Last Reviewed 02/26/19 @ 16:47 by Tejas Kim DO) Chest pain (Acute) Elevated troponin (Acute) Unstable angina (Acute) Cataract (Resolved) Old myocardial infarction (Resolved) Troponin I above reference range (Resolved) Chest pain (Resolved) This 89-year-old female with history of mild coronary artery disease with heart cath in 2015 showed mild coronary artery disease came to ER with midsternal chest tightness with radiation to left jaw on exertion along with shortness of breath for few days. 1. Unstable angina/ non-STEMI: Patient troponins are mildly elevated. Cardiac cath showed EF 65% by LV gram. Proximal LAD 75% eccentric that required PCI. Diffuse RCA 25%. Patient transferred to ICU after PCI. The patient on aspirin, Brilinta, and add labetalol 5 mg IV 1 dose was given. Patient is allergic to statins. Coreg was added. Lipid profile for tomorrow a.m. 2. Heart failure with preserved EF, chronic. EF 65% by LV gram. EF was 60% on echo in June 2018. Currently does not have signs and symptoms of acute heart failure. 3. Valvular heart disease: Patient has mild to moderate eccentric MR, moderate tricuspid regurgitation mild to moderate aortic regurgitation. 4. Arrhythmia with transient hypotension: Patient had transient bradycardia/junctional bradycardia/idioventricular rhythm: This was transient probably from vasovagal response as the patient was feeling abdominal gas and passed flatus at that time. This resolved without fluid. IV fluid normal saline 500 mL bolus was given. 5. Dyslipidemia: Fasting lipid profile LDL 127, HDL 77, total cholesterol 216 and triglyceride 59. Pravastatin ordered, starting with low-dose 20 mg at bedtime daily. This was discussed by Dr. Bradshaw to look for tolerance for statin. Hypertension: Blood pressure is elevated.: 170/77: Losartan was started 50 mg yesterday and decreased to 25 mg with holding parameters hold below systolic 120 mmHg. Follow BMP tomorrow a.m. DVT prophylaxis: Lovenox 40 mg subcu daily discontinue if platelet count drops less than 50,000 or hemoglobin less than 8 g% Laboratory 02/26/19 16:58: Troponin I 0.208 H 02/26/19 20:10: Troponin I 0.213 H 02/27/19 05:05: PT 13.5, INR 1.1 02/27/19 05:05: Sodium 138, Potassium 4.1, Chloride 103, Carbon Dioxide 27.0, Anion Gap 8, BUN 24 H, Creatinine 1.16 H, Estim Creat Clear Calc 28.22, Est GFR (MDRD) Af Amer 57 L, Est GFR (MDRD) Non-Af 47 L, BUN/Creatinine Ratio 20.7 H, Glucose 98, Calcium 9.2 02/27/19 13:36: Activated Clotting Time 158 H Code Visit Inpatient E&M: 73999 Subs Hosp L3
[2019-02-28] MEDS: Enoxaparin 40 MG/0.4 ML Syringe SC (19:28)
[2019-02-28] MEDS: Pravastatin 20 MG Tablet PO (21:36)
[2019-03-01] VITALS (9 sets, daily range): BP systolic 114–151; BP diastolic 60–90; PULSE 68–87; RESP 12–16; TEMP 36.6–36.8; O2SAT 90–97
--- NOTE | 2019-03-01 05:55 | EKG12_ITS ---
Test Reason : POST PCI Blood Pressure : / mmHG Vent. Rate : 078 BPM Atrial Rate : 078 BPM P-R Int : 156 ms QRS Dur : 126 ms QT Int : 402 ms P-R-T Axes : 069 -33 031 degrees QTc Int : 458 ms Normal sinus rhythm Left axis deviation Right bundle branch block Abnormal ECG Confirmed by CHAPITO MARCANO, SHAHZAD ([id number]), electronic news gathering editor JEFFREY RODRIGUEZ ([id number]) on 03/04/2019 12:51:15 PM Referred By: CHAPITO Confirmed By:SHAHZAD URIARTE MD
[2019-03-01 06:32] LABS: Anion Gap 4 (5-15); BUN 18 mg/dL (7-18); BUN/Creat Ratio 17.8 RATIO (10-20); Calcium,Total 8.8 mg/dL (8.5-10.1); Chloride 111 mmol/L (98-107); Creatinine, Serum 1.01 mg/dL (0.55-1.02); EST Glomerular Filtration Rate 56 mL/min (>60); Est Glom Filt Rate - Afr Amer 67 mL/min (>60); Estimated Creatinine Clearance 37.08 ml/min; Glucose 98 mg/dL (74-106); Potassium 4.1 mmol/L (3.5-5.1); Sodium Level 139 mmol/L (136-145)
[2019-03-01] MEDS: Levothyroxine 50 MCG Tablet PO (06:45)
[2019-03-01] MEDS: Calcium Carbonate 500 MG Tablet PO (08:17)
[2019-03-01] MEDS: Aspirin 81 MG TAB.CHEW PO (08:17)
[2019-03-01] MEDS: Vitamin B Comp W-C Capsule 1 CAP PO (08:17)
[2019-03-01] MEDS: Cyanocobalamin 500 MCG Tablet 1000 MCG PO (08:18)
[2019-03-01] MEDS: TICAGRELOR 90 MG TABLET PO (08:18)
[2019-03-01] MEDS: Losartan Potassium 25 MG Tablet PO (08:19)
[2019-03-01] MEDS: ALPRAZolam 0.25 MG Tablet 0.125 MG PO (09:21)
--- NOTE | 2019-03-01 10:00 | DCINST_ITS ---
- Discharge Diagnoses Current Active Problems: Current Active and Chronic Problems (Last Reviewed 02/26/19 @ 16:47 by Tejas Kim DO) Chest pain (Acute) Elevated troponin (Acute) Unstable angina (Acute) You will use the following diet at home:: Cardiac Your food should be the consistency of: Regular Discharge Activity: May Not Drive Weight Bearing Status: Weight bearing as tolerated Call your doctor if you observe: Fever of 101 or Higher, Numbness or Tingling, Inability to urinate, Inability to have a bowel movement, Shortness of breath, Dizziness, Fainting spells, Swelling in the ankles, Chest pain, Increased palpitations (irregular heartbeat), Uncontrolled pain Allergies/Adverse Reactions: Allergies latex Allergy (Mild, Verified 02/26/19 12:52) Rash Penicillins [PCN] Allergy (Verified 02/26/19 16:24) Unknown Qfuumcf-Dnn-Tia Reductase Inhibitor Allergy (Verified 02/26/19 12:52) All blood cells low Medications to take at Discharge Aspirin [Aspirin, Baby] 81 mg PO DAILY@0800 12/13/15 Calcium Carbonate [Calcium] 1,200 mg PO DAILY 12/13/15 Cholecalciferol (VIT D3) [Vitamin D3] 1,000 unit PO DAILY 12/13/15 Fish Oil/Om-3/E/Folic/B6-B12 [Cardiovid Plus Softgel] 1 capsule PO QODAY 12/13/15 Levothyroxine [Synthroid] 25 mcg PO MOTUWETHFR 12/13/15 ascorbic acid (vitamin C) 500 mg tablet 500 mg PO QODAY tab 06/17/18 coenzyme Q10 75 mg capsule 75 mg PO DAILY 12/10/18 colestipol 1 gram tablet 2 gm PO BID tab 12/10/18 vitamin E 200 unit capsule 200 unit PO QODAY cap 12/10/18 ALPRAZolam [Xanax] 0.125 - 0.25 mg PO Q8H PRN PRN 02/26/19 Cyanocobalamin (Vitamin B-12) [Vitamin B-12] 1,000 mcg PO QODAY 02/26/19 Levothyroxine Sodium 50 mcg PO SUSA 02/26/19 Vitamin B Complex [B Complex] 1 tab PO QODAY 02/26/19 Ticagrelor [Brilinta] 90 mg PO BID #60 tab 02/28/19 Losartan Potassium 25 mg PO DAILY #30 tab 03/01/19 Pravastatin [Pravachol] 20 mg PO QHS #30 tab 03/01/19 The following prescriptions were given: Ticagrelor [Brilinta] 90 mg PO BID #60 tab Losartan Potassium 25 mg PO DAILY #30 tab Transmission Status: [id number] Pravastatin [Pravachol] 20 mg PO QHS #30 tab Transmission Status: Pending to [id number] Primary Care Physician: Dori Boyd DO [Primary Care Provider] - Please follow up with your Primary Care Physician in: in 1-2 week Test Results: Test results from this visit will be discussed in further detail at your follow- up appointment, if applicable. Please Follow Up With: Jakub Bradshaw MD When: in 2-3 weeks
--- NOTE | 2019-03-01 10:00 | EKG12_ITS ---
Test Reason : AM EKG Blood Pressure : / mmHG Vent. Rate : 069 BPM Atrial Rate : 069 BPM P-R Int : 142 ms QRS Dur : 118 ms QT Int : 416 ms P-R-T Axes : -15 -34 011 degrees QTc Int : 445 ms Normal sinus rhythm Left axis deviation Right bundle branch block Abnormal ECG Confirmed by CHAPITO MARCANO, SHAHZAD ([id number]), story editor JEFFREY RODRIGUEZ ([id number]) on 03/04/2019 12:50:30 PM Referred By: MARCELLE Confirmed By:SHAHZAD URIARTE MD
--- NOTE | 2019-03-01 10:06 | PN.CARD_ITS ---
Subjectve: The patient appears to be symptomatically improved today. She has had no recurrent events bradycardia dysrhythmias or hypotension. She has had no other new acute complaints. Objective: Vital Signs Temp Pulse Resp BP Pulse Ox 97.8 F 69 14 141/61 H 97 03/01/19 07:38 03/01/19 07:38 03/01/19 07:38 03/01/19 07:38 03/01/19 07:38 Oxygen Flow Rate (L/min) 2 Oxygen Delivery Method Room Air Weight: 133 lb Body Mass Index (BMI) 24.8 Intake and Output for Last 24 Hours 02/27/19 02/28/19 03/01/19 23:59 23:59 23:59 Intake Total 1743 / 1743 1240 / 1826 1186 / 1186 Output Total 1300 / 1300 600 / 600 Balance 443 / 443 640 / 1226 1186 / 1186 General: Awake, Alert, Oriented x 3, Cooperative, No Acute Distress HEENT: Atraumatic, Normocephalic, PERRL, EOMI, Sclera Non Icteric Oral: Moist Mucosa Neck: Supple, Good ROM, No JVD Lungs: Clear to auscultation Cardiovascular: Regular Rhythm, Normal S1, Normal S2 Abdomen: Bowel Sounds Present, Soft, Non Tender Extremities: No edema Neurological: No Focal Motor or Sensory Deficit Psych/Mental Status: Appropriate 03/01/19 05:50: Sodium 139, Potassium 4.1, Chloride 111 H, Carbon Dioxide 24.0, Anion Gap 4 L, BUN 18, Creatinine 1.01, Est GFR (MDRD) Af Amer 67, Est GFR (MDRD) Non-Af 56 L, BUN/Creatinine Ratio 17.8, Glucose 98, Calcium 8.8 Rhythm: Sinus rhythm EKG: Sinus rhythm; right bundle branch block pattern; no acute ECG changes Medical Necessity - Tobacco Use Smoking Status: Never smoker Assessment/Plan 1. CAD status post LAD PCI At the present time the patient has been recuperating from her cardiac catheterization/PCI. She has had no obvious adverse cardiovascular events with respect to her underlying CAD process. She does need to continue risk factor modification medical management as deemed appropriate. 2. Diastolic dysfunction She has a history of diastolic dysfunction and potentially diastolic mediated CHF. She appears to be without any acute symptoms of CHF and/or pulmonary edema at this time. She will continue medical management and follow-up as deemed appropriate. 3. Valvular heart disease There is been concern of underlying valvular heart disease in the past. She did have a repeat transthoracic echocardiogram as noted above. She continues with evidence of underlying valvular heart disease. At the moment she will continue follow-up by history, exam, and echocardiogram as deemed appropriate. 4. Hyperlipidemia The patient has a history of hyperlipidemia. She reportedly has been intolerant to statins. He states her intolerance has been myalgias. She believes she is only been on one statin in the past. She states at home she has been attempting colestipol but has difficulty taking it on a regular scheduled basis. The patient was agreeable to reattempting an alternative statin. She was starte d on pravastatin 20 mg p.o. daily yesterday evening. She also states she has CoQ10 at home. She can take this or the [id number] directions. 5. Hypertension She will have medical adjustment to assist with her blood pressure control. 6. Bradycardia/hypotension Status post review of the case the consensus is that the patient experienced a vasovagal event potentially secondary to abdominal discomfort as a noxious stimuli. The patient has been monitored. She has remained symptomatically and hemodynamically stable. She has had no acute changes on her ECG pattern. Overall the patient should be able to be released home for continued outpatient cardiovascular follow-up. Comment: The above was discussed and reviewed with the patient. This note was generated using a voice recognition system and there may be incorrect words, spelling or punctuation that were not noted when reviewing the office note prior to saving.
--- NOTE | 2019-03-01 10:53 | PCM.DC.SUM ---
Discharge Date and Diagnosis Date of Admission: 02/26/19 Date of Discharge: 03/01/19 - Primary Discharge Diagnosis Active and Suspected Problems (Last Reviewed 02/26/19 @ 16:47 by Tejas Kim DO) Chest pain (Acute) Elevated troponin (Acute) Unstable angina (Acute) - Secondary Discharge Diagnosis Chronic Problems (Last Reviewed 02/26/19 @ 16:47 by Tejas Kim DO) Essential (primary) hypertension (Chronic) Pure hypercholesterolemia (Chronic) Atherosclerosis of [place] coronary artery of [place] heart without angina pectoris (Chronic) Non-rheumatic tricuspid valve insufficiency (Chronic) Diastolic dysfunction (Chronic) Hx of congestive heart failure (Chronic) Nonrheumatic mitral valve insufficiency (Chronic) Nonrheumatic aortic valve insufficiency (Chronic) Nonrheumatic mitral valve prolapse (Chronic) CHF (congestive heart failure) (Chronic) Hospital Course and Treatment Operations: None Summary of Care Provided: [] This 83-year-old female with history of mild coronary artery disease with heart cath in 2016 showed mild coronary artery disease came to ER with midsternal chest tightness with radiation to left jaw on exertion along with shortness of breath for few days. 1. Unstable angina/ non-STEMI: Patient troponins are mildly elevated. Cardiac cath showed EF 65% by LV gram. Proximal LAD 75% eccentric that required PCI. Diffuse RCA 25%. Patient transferred to ICU after PCI. The patient on aspirin, Brilinta, and add labetalol 5 mg IV 1 dose was given. Total cholesterol 216, LDL 127, HDL 77. Patient is on colestipol at home. Patient is allergic to statins but after discussion of pros and cons commonly benefit in ID, she was convinced for pravastatin. Low-dose pravastatin 20 mg by oven builder and try to titrate up as per toleration. Concern of myalgia or muscle related side effects. 2. Bradyarrthymia/junctional bradycardia with associated lightheadedness most related to vasovagal on 02/28/2018: Coreg was discontinued after this episode. Losartan was decreased to 25 mg daily. Discharge was held yesterday, 02/28. Telemetry shows heart rate 70s to 80s, normal sinus rhythm. Blood pressure is stable. Resolved. 2. Heart failure with preserved EF, chronic. EF 65% by LV gram. EF was 60% on echo in June 2018. Currently does not have signs and symptoms of acute heart failure. 3. Hypertension: Blood pressure is elevated.: 170/77: Stable 140s on losartan 25 mg daily. DVT prophylaxis On bilateral SCDs. Losartan resumed after 24 hours of cardiac cath. Patient had right radial artery cardiac cath PCI. Discharge medication reconciliation done. Discharge follow-up instructions completed. Discharge process discussed with the patient and all questions were answered to patient's satisfaction. Follow Dr. Bradshaw in 2 weeks. Total time spent, exact 35 minutes on discharge meds reconciliation, examination, review of imaging and blood test and discussion with the patient on follow-up instructions. Laboratory Results 03/01/19 05:50: Sodium 139, Potassium 4.1, Chloride 111 H, Carbon Dioxide 24.0, Anion Gap 4 L, BUN 18, Creatinine 1.01, Estim Creat Clear Calc 37.08, Est GFR (MDRD) Af Amer 67, Est GFR (MDRD) Non-Af 56 L, BUN/Creatinine Ratio 17.8, Glucose 98, Calcium 8.8 02/28/19 04:10: WBC 6.5, RBC 4.54, Hgb 13.4, Hct 39.4, MCV 86.8, MCH 29.5, MCHC 34.0, RDW 13.4, RDW Differential 42.6, Plt Count 197, MPV 8.8 02/28/19 04:10: Sodium 136, Potassium 4.1, Chloride 103, Carbon Dioxide 25.0, Anion Gap 8, BUN 17, Creatinine 1.04 H, Estim Creat Clear Calc 36.01, Est GFR (MDRD) Af Amer 65, Est GFR (MDRD) Non-Af 54 L, BUN/Creatinine Ratio 16.3, Glucose 106, Calcium 9.2, Total Bilirubin 0.60, AST 32, ALT 20, Alkaline Phosphatase 62, Total Protein 7.5, Albumin 3.6, Globulin 3.9, Albumin/Globulin Ratio 0.9, Triglycerides 59, Cholesterol 216 H, LDL Cholesterol 127, VLDL Cholesterol 12, HDL Cholesterol 77 Subjective: Seen and examined. Patient had episode of bradyarrhythmia yesterday with bradycardia/junctional bradycardia with dizziness and lightheadedness. Patient recovered spontaneously. At that time, patient was feeling abdominal gas/fullness. This most vasovagal response. Patient also has a history of anxiety. 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 She did not had these symptoms after the surgery. Blood pressure is good systolic and 140s after half an hour of losartan 25 mg. Shows normal sinus rhythm 70s. Coreg was discontinued yesterday - Physical Exam General: Alert, Oriented x3, Cooperative HEENT: Atraumatic, PERRLA, EOMI, Normocephalic Neck: Supple, No JVD, Negative Carotid Bruits Lungs: Clear to auscultation, Normal air movement, No rhonchi, No wheeze, No rales Cardiovascular: Regular rate, Regular Rhythm, Normal S1, Normal S2, No murmurs Abdomen: Bowel Sounds Present, Soft, Non Tender, Non-Distended, No Hepato-splenomegaly Extremities: No edema, Capillary Refill Less than 3 Seconds, - - Right radial artery cath access site dry; no hematoma. Skin: No rashes, No breakdown Musculoskeletal: No Tenderness to Palpation of Joints or Extremities Lymphatic: No Cervical, Supraclavicular, or Inguinal Adenopathy Neurological: Cranial nerves II-XII grossly intact, Deep Tendon Reflexes 2+/4 and Symmetrical, Neuro grossly intact, Motor Exam 5/5 strength throughout Psych/Mental Status: Normal Affect, Appropriate Vital Signs Temp Pulse Resp BP Pulse Ox 98.1 F 90 11 L 147/69 H 94 02/28/19 04:00 02/28/19 06:00 02/28/19 06:00 02/28/19 06:00 02/28/19 06:00 Oxygen Delivery Method Room Air Weight: 133 lb Body Mass Index (BMI) 24.8 Intake and Output for Last 24 Hours 02/26/19 02/27/19 02/28/19 23:59 23:59 23:59 Intake Total 1743 / 1743 100 / 100 Output Total 1300 / 1300 Balance 443 / 443 100 / 100 Laboratory Tests Past 24 Hrs 02/27/19 02/28/19 02/28/19 13:36 04:10 04:10 WBC 6.5 RBC 4.54 Hgb 13.4 Hct 39.4 MCV 86.8 MCH 29.5 MCHC 34.0 RDW 13.4 RDW Differential 42.6 Plt Count 197 MPV 8.8 Activated Clotting Time 158 H Sodium 136 Potassium 4.1 Chloride 103 Carbon Dioxide 25.0 Anion Gap 8 BUN 17 Creatinine 1.04 H Estim Creat Clear Calc 36.01 Est GFR (MDRD) Af Amer 65 Est GFR (MDRD) Non-Af 54 L BUN/Creatinine Ratio 16.3 Glucose 106 Calcium 9.2 Total Bilirubin 0.60 AST 32 ALT 20 Alkaline Phosphatase 62 Total Protein 7.5 Albumin 3.6 Globulin 3.9 Albumin/Globulin Ratio 0.9 Triglycerides 59 Cholesterol 216 H LDL Cholesterol 127 VLDL Cholesterol 12 HDL Cholesterol 77 Discharge Activity: May Not Drive Weight Bearing Status: Weight bearing as tolerated Call your doctor if you observe: Fever of 101 or Higher, Numbness or Tingling, Inability to urinate, Inability to have a bowel movement, Shortness of breath, Dizziness, Fainting spells, Swelling in the ankles, Chest pain, Increased palpitations (irregular heartbeat), Uncontrolled pain Home Medications: Medications to take at Discharge Aspirin [Aspirin, Baby] 81 mg PO DAILY@0800 12/13/15 Calcium Carbonate [Calcium] 1,200 mg PO DAILY 12/13/15 Cholecalciferol (VIT D3) [Vitamin D3] 1,000 unit PO DAILY 12/13/15 Fish Oil/Om-3/E/Folic/B6-B12 [Cardiovid Plus Softgel] 1 capsule PO QODAY 12/13/15 Levothyroxine [Synthroid] 25 mcg PO MOTUWETHFR 12/13/15 ascorbic acid (vitamin C) 500 mg tablet 500 mg PO QODAY tab 06/17/18 coenzyme Q10 75 mg capsule 75 mg PO DAILY 12/10/18 colestipol 1 gram tablet 2 gm PO BID tab 12/10/18 vitamin E 200 unit capsule 200 unit PO QODAY cap 12/10/18 ALPRAZolam [Xanax] 0.125 - 0.25 mg PO Q8H PRN PRN 02/26/19 Cyanocobalamin (Vitamin B-12) [Vitamin B-12] 1,000 mcg PO QODAY 02/26/19 Levothyroxine Sodium 50 mcg PO SUSA 02/26/19 Vitamin B Complex [B Complex] 1 tab PO QODAY 02/26/19 Ticagrelor [Brilinta] 90 mg PO BID #60 tab 02/28/19 Losartan Potassium 25 mg PO DAILY #30 tab 03/01/19 Pravastatin [Pravachol] 20 mg PO QHS #30 tab 03/01/19 Following Prescrptions Were Given to Patient: Ticagrelor [Brilinta] 90 mg PO BID #60 tab Losartan Potassium 25 mg PO DAILY #30 tab Transmission Status: [facility] by [id number] Pravastatin [Pravachol] 20 mg PO QHS #30 tab Transmission Status: Received by [id number] Primary Care Physician: Dori Boyd DO [Primary Care Provider] - Please follow up with your Primary Care Physician in: in 1-2 week Please Follow Up With: Jakub Bradshaw MD When: in 2-3 weeks Medical Necessity - Tobacco Use Smoking Status: Never smoker Meaningful Use Info Meaningful Use Diagnoses (Choose all that apply): AMI - AMI Aspirin given w/in 24hrs of arrival?: Yes ASA at discharge?: Yes Statins at discharge?: Yes Vaibhav/ARB at discharge?: Yes Beta Hcaya at discharge?: Yes Done w/ Acute ID measure.: Yes Documented LVEF (%): 65 Code Visit Inpatient E&M: 82108 Disch Hosp
== END 2019-03-01 11:10 | disposition home or self-care (01) ==
LOC: ED 15:52 → PCU 16:03 → ICU 02-27 13:54
PROVIDERS: Internal Medicine Cardiovascular Disease; Specialist; Emergency Provider Emergency Medicine; Family Provider Internal Medicine; PCP Internal Medicine; Visit Provider Internal Medicine
DX: I21.4 Non-ST elevation (NSTEMI) myocardial infarction (principal); I11.0 Hypertensive heart disease with heart failure; I50.32 Chronic diastolic (congestive) heart failure; I25.10 Atherosclerotic heart disease of native coronary artery without angina pectoris; K21.9 Gastro-esophageal reflux disease without esophagitis; I25.2 Old myocardial infarction; I08.3 Combined rheumatic disorders of mitral, aortic and tricuspid valves; E78.5 Hyperlipidemia, unspecified; Z79.899 Other long term (current) drug therapy; Z79.82 Long term (current) use of aspirin
CPT/HCPCS: 36415; 71045; 80048; 80053; 80061; 84443; 84484; 85025; 85027; 85347; 85610; 92928; 92978; 93005; 93306; 93458; 96361; 96372; 96374; 96376; 99152; 99153; 99218; 99285; J0153; J7030; J7040; Q9957; Q9967; A4216; C1753; C1769; C1874; C1887; C1894; C9600; G0378; J1327; J2405

== ENCOUNTER 2019-03-06 15:41 | Inpatient (IN) | payer MEDICARE, SELFPAY ==
[2019-02-26 16:51] VITALS: BMI 24.8
[2019-02-27 14:50] VITALS: BMI 22.1
[2019-03-06] VITALS (10 sets, daily range): BP systolic 129–177; BP diastolic 78–95; PULSE 73–93; RESP 12–18; TEMP 36.7–36.9; O2SAT 95–98; BMI 25.4; BMI 25.1
--- NOTE | 2019-03-06 16:09 | EKG12_ITS ---
Test Reason : SOB Blood Pressure : / mmHG Vent. Rate : 080 BPM Atrial Rate : 080 BPM P-R Int : 158 ms QRS Dur : 118 ms QT Int : 382 ms P-R-T Axes : 062 -30 029 degrees QTc Int : 440 ms Normal sinus rhythm Left axis deviation Right bundle branch block Abnormal ECG Confirmed by CHAPITO MARCANO, SHAHZAD ([id number]), editor magazine VIRAL [employer] ([id number]) on 03/09/2019 1:16:50 PM Referred By: Alethea Hernandez Confirmed By:SHAHZAD URIARTE MD
--- NOTE | 2019-03-06 16:10 | ED.DCSUM_ITS ---
- ER Visit Summary Date of Service: 03/06/19 Chief Complaint: Neck pain History of Present Illness: The patient is a 83 F with left-sided neck pain. The patient had similar symptoms last week. She had neck pain that she describes as a tightness and reported tiredness and shortness of breath. She was admitted, underwent cardiac catheterization, and stent placement. She has had continued symptoms since including left-sided neck pain, shortness of breath, and generalized weakness. She had some tingling in her legs earlier today but was able to walk. She denies any unilateral weakness. Denies any unilateral numbness. Denies facial droop, vision changes, or speech changes. Patient has been compliant with her medications as prescribed by her doctors. Physical Examination: Afebrile and vital signs unremarkable. Patient is alert and oriented. No acute distress. Cranial nerves grossly intact. NIH stroke scale 0. Heart regular rate and rhythm. Lungs clear. Abdomen soft and nontender. Skin appears normal. Calves soft and supple. Pulses strong and equal Test Results: EKG showed sinus rhythm at a rate of 80. No sign of acute ischemia or infarction pattern. Right bundle branch block pattern was noted. CBC, BMP, troponin, chest x-ray pending. Emergency Department Course and Treatment: Patient was treated with aspirin and placed on a monitor while awaiting results. CBC and BMP were unremarkable. Coags unremarkable. Troponin was 5. I contacted Dr. Bradshaw. He would not have expected this based on her cath results. She has been compliant with her medication, but I cannot rule out oc clusion/thrombus. I did add on a CTA to check for other causes. 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 Patient has remained stable. I contacted the hospitalist to admit for further care. She was started on heparin per cardiology. Treatment Plan: As above Disposition: Admission Impression: 1. NSTEMI This note was generated with [employer] dictation software. It may contain incorrect words, spelling, and punctuation that were not noted in review of the chart prior to signing ED Disposition - Plan for ED Patient: Referrals: Dori Boyd DO [Primary Care Provider] -
--- NOTE | 2019-03-06 16:15 | RAD_ITS ---
STUDY: X-RAY CHEST REASON FOR EXAM: Female, 83 years old. Neck pain and shortness of breath TECHNIQUE: Portable chest COMPARISON: 02/26/2019 FINDINGS: The lungs are clear and expanded. There is no demonstrated pleural abnormality. Normal size heart. Normal mediastinum and colette. Normal visualized pulmonary arteries. Normal visualized aortic arch and descending thoracic aorta. Normal visualized thoracic spine. There are degenerative changes of the right shoulder. There is no demonstrated abnormality of the visualized soft tissue structures of the upper abdomen. RAD/Chest 1 View (Portable) IMPRESSION: No acute process Electronically Signed: Eddie Ragland, at 16:47 EDT Tel , Service support ,
[2019-03-06 16:18] LABS: Absolute Lymphocyte Count 1.12 X10^3/ul (0.83-4.51); Absolute Neutrophil Count 4.2 X10^3/uL (2.0-7.7); Basophil# 0.02 X10^3/uL; Basophil% 0.3 % (0-1); Eosinophil# 0.19 X10^3/uL; Eosinophils% 3.1 % (0-5); Hematocrit 39.1 % (37-47); Hemoglobin 13.1 g/dl (12.0-15.0); Lymphocyte # 1.12 X10^3/ul (4.0); Mean Corp Hgb Conc 33.5 g/gl (32-36); Mean Corpuscular Hgb 29.2 pg (27.0-32.0); Mean Corpuscular Volume 87.1 fL (81-99); Mean Platelet Vol. 8.8 fl (6.2-12.0); Monocyte# 0.65 X10^3/uL; Monocyte% 10.5 % (0-10); Neutrophil # 4.23 X10^3/uL (2.7-7.7); Neutrophil % 67.9 % (47-70); Platelet Count 234 K/mm3 (150-450); RBC Distribution Width CV 13.5 % (11.6-14.6); RBC Distribution Width SD 42.8 fl (35.1-43.9); Red Blood Count 4.49 M/mm3 (4.2-5.4); White Blood Count 6.2 K/mm3 (4.4-11.0)
[2019-03-06] MEDS: Aspirin 81 MG TAB.CHEW 324 MG PO (16:30)
[2019-03-06 16:35] LABS: Anion Gap 4 (5-15); BUN 25 mg/dL (7-18); BUN/Creat Ratio 19.1 RATIO (10-20); Calcium,Total 9.6 mg/dL (8.5-10.1); Chloride 100 mmol/L (98-107); Creatinine, Serum 1.31 mg/dL (0.55-1.02); EST Glomerular Filtration Rate 41 mL/min (>60); Est Glom Filt Rate - Afr Amer 50 mL/min (>60); Estimated Creatinine Clearance 24.98 ml/min; Glucose 103 mg/dL (74-106); Potassium 4.4 mmol/L (3.5-5.1); Sodium Level 132 mmol/L (136-145)
[2019-03-06 16:39] LABS: POSITIVE COUNT NO; POSITIVE DIFFERENTIAL NO; POSITIVE MORPHOLOGY NO
--- NOTE | 2019-03-06 16:41 | ED.RN ---
LAB CALLS WITH CRITICAL RESULT, TROPONIN 5.03, DR. DILL MADE AWARE.
--- NOTE | 2019-03-06 16:54 | CT_ITS ---
STUDY: CTA CHEST REASON FOR EXAM: Female, 83 years old. Neck pain, history of heart stent RADIATION DOSAGE (If Supplied By Facility): CTDIvol = ( 6.40 ) mGy, DLP = ( 194.31 ) mGycm TECHNIQUE: The examination was performed with the intravenous administration of 75ML IV Isovue 300. Post-processing of the angiographic images was performed, with multiplanar reformation and 3D reconstruction. Individualized dose optimization techniques were used for this CT. COMPARISON: CT chest 11/29/2017. FINDINGS: Normal enhancement of the main pulmonary artery and right and left pulmonary arteries. Normal enhancement of the bilateral peripheral pulmonary arteries. There is no demonstrated pulmonary embolism. There is mild aneurysmal dilatation of the ascending thoracic aorta which measures 3.5 cm AP by 3.3 cm mediolateral diameter. There is calcific coronary atherosclerosis. There is a coronary stent within the LAD.. There is no demonstrated aortic dissection. Normal mediastinum. Normal hilar regions. Normal visualized trachea and bronchi. The lungs are well expanded. The exam is limited due to motion artifact. There are scattered bilateral groundglass pulmonary opacities. Scattered areas of subsegmental atelectasis.. Normal pleura. Normal chest wall structures. There is wall thickening of the stomach. The multilevel degenerative changes of the thoracic and lumbar spine with multilevel Schmorl's nodes. Mild biapical pulmonary scarring and pleural calcifications. There is a stable 5 mm left upper lobe pulmonary nodule. There is a pectus deformity of the chest Stable nodularity left adrenal gland. There is wall thickening of the stomach. There is 3 cm left renal cyst. CT/CTA Chest W/WO Contrast IMPRESSION: Normal CTA chest examination, without a demonstrated pulmonary embolism or arterial dissection. mild aneurysmal dilatation of the ascending thoracic aorta which measures 3.5 cm AP by 3.3 cm mediolateral diameter. There is calcific coronary atherosclerosis. There is a coronary stent within the LAD.. There are scattered groundglass pulmonary opacities, limited exam due to motion artifact, scattered areas of subsegmental atelectasis. These findings are infectious/inflammatory and/or pulmonary venous congestion Multilevel spondylosis thoracic and lumbar spine Mild biapical pulmonary scarring and pleural calcifications Stable 5 mm left upper lobe pulmonary nodule Stable pectus deformity of the chest Wall thickening of the stomach likely due to incomplete distention Electronically Signed: Eddie Ragland, at 17:54 EDT Tel , Service support ,
[2019-03-06 17:21] LABS: Partial Thromboplast Time 26.1 Seconds (24.1-36.2)
[2019-03-06] MEDS: Heparin Injection (Vial) 5,000 UNIT/ML VIAL 4500 UNIT IV (17:30)
[2019-03-06] MEDS: HEPARIN/D5w 25,000 UNITS 25,000 UNITS/250 ML IV.SOLN. 10 UNITS IV (17:31)
--- NOTE | 2019-03-06 18:36 | HP.PCM_ITS ---
History of Present Illness Date of Admission: 03/06/19 Chief Complaint: Left-sided neck pain and shoulder pain. The patient is a 83 year old F with an extensive past medical history as listed. She was recently admitted for chest pain a week ago and had drug-eluting stent placed in the LAD on 02/27/2019 on account of 75% stenosis. After discharge, she had persistent left-sided neck pain and chest pain which was not getting better. She also had associated shortness of breath which worsened with exertion so she decided to come into the ED today. She also complained of episode of palpitation. On admission in the ED, vitals were essentially stable and chemistry was significant for sodium of 132 with creatinine of 1.31. Troponin was 5.03. Chest CT was negative for any PE and chest x-ray showed no acute cardiopulmonary process. EKG showed no acute ST changes. She has been admitted to be managed for non-STEMI. [] Past Medical History Past Medical History (Chronic Problems): Chronic Problems (Last Reviewed 02/26/19 @ 16:47 by Tejas Kim DO) S/P coronary artery stent placement (Chronic ~02/27/19) IVUS guided PCI/OZIEL to prox LAD 02/27/19 Essential (primary) hypertension (Chronic) Pure hypercholesterolemia (Chronic) 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) Non-rheumatic tricuspid valve insufficiency (Chronic) Diastolic dysfunction (Chronic) Hx of congestive heart failure (Chronic) Nonrheumatic mitral valve insufficiency (Chronic) Nonrheumatic aortic valve insufficiency (Chronic) Nonrheumatic mitral valve prolapse (Chronic) CHF (congestive heart failure) (Chronic) Medical History: Medical History (Last Reviewed 02/26/19 @ 16:47 by Tejas Kim DO) Essential (primary) hypertension (Chronic) I10 Pure hypercholesterolemia (Chronic) E78.00 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) I25.10 Non-rheumatic tricuspid valve insufficiency (Chronic) I36.1 Diastolic dysfunction (Chronic) I51.9 Hx of congestive heart failure (Chronic) Z86.79 Cataract (Resolved) H26.9 Nonrheumatic mitral valve insufficiency (Chronic) I34.0 Nonrheumatic aortic valve insufficiency (Chronic) I35.1 Nonrheumatic mitral valve prolapse (Chronic) I34.1 CHF (congestive heart failure) (Chronic) I50.9 Old myocardial infarction (Resolved) I25.2 NonST Elevation [place] Troponin I above reference range (Resolved) R79.89 Chest pain (Resolved) R07.9 GERD (gastroesophageal reflux disease) K21.9 Dyspnea R06.00 Allergies latex Allergy (Mild, Verified 03/06/19 15:53) Rash Penicillins [PCN] Allergy (Verified 03/06/19 15:53) Unknown Msndrll-Tis-Vlq Reductase Inhibitor Allergy (Verified 03/06/19 15:53) All blood cells low Home Medications: Ambulatory Orders Medication Instructions Recorded Aspirin [Aspirin, Baby] 81 mg PO DAILY@0800 12/13/15 Calcium Carbonate [Calcium] 1,200 mg PO DAILY 12/13/15 Cholecalciferol (VIT D3) [Vitamin 1,000 unit PO DAILY 12/13/15 D3] Fish Oil/Om-3/E/Folic/B6-B12 1 capsule PO QODAY 12/13/15 [Cardiovid Plus Softgel] Levothyroxine [Synthroid] 25 mcg PO MOTUWETHFR 12/13/15 ascorbic acid (vitamin C) 500 mg 500 mg PO QODAY tab 06/17/18 tablet colestipol 1 gram tablet 2 gm PO BID tab 12/10/18 Cyanocobalamin (Vitamin B-12) 1,000 mcg PO QODAY 02/26/19 [Vitamin B-12] Vitamin B Complex [B Complex] 1 tab PO QODAY 02/26/19 Losartan Potassium 25 mg PO DAILY 03/06/19 Pravastatin [Pravachol] 20 mg PO QHS 03/06/19 Ticagrelor [Brilinta] 90 mg PO BID 03/06/19 Surgical History: Surgical History (Last Updated 03/02/19 @ 09:05 by Emerita Cloud) S/P coronary artery stent placement (Chronic) Onset Date: ~02/27/19 Z95.5 IVUS guided PCI/OZIEL to prox LAD 02/27/19 History of appendectomy Z90.49 History of dilatation and curettage Z98.890 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 Surgical History: appendectomy, cataract, - - 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 Psychiatric History: No pertinent psych hx 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 Smoking Status: Never smoker - *Family History Maternal Family History: Family History (Last Reviewed 02/26/19 @ 16:47 by Tejas Kim DO) Father CAD (coronary artery disease) Myocardial infarction Mother CVA (cerebral vascular accident) Brother Aneurysm Brother Heart disease Sister Afib Parkinson's disease History Items: No pertinent history Paternal Family History: Family History (Last Reviewed 02/26/19 @ 16:47 by Tejas Kim DO) Father CAD (coronary artery disease) Myocardial infarction Mother CVA (cerebral vascular accident) Brother Aneurysm Brother Heart disease Sister Afib Parkinson's disease History Items: Heart Disease Sibling Family History: Family History (Last Reviewed 02/26/19 @ 16:47 by Tejas Kim DO) Father CAD (coronary artery disease) Myocardial infarction Mother CVA (cerebral vascular accident) Brother Aneurysm Brother Heart disease Sister Afib Parkinson's disease History Items: Heart Disease Review of Systems Constitutional: Denies: Chills, Fever, Weight Change Eyes: Denies: Blurred vision HEENT: Denies: Head Aches, Sinus Congestion, Sinus Drainage Cardiovascular: Reports: - - left neck pain and shoulder pain. Denies: Chest Pain, Chest Pressure, Chest Tightness, Palpitations Respiratory: Denies: Cough, Shortness of breath at rest, Sputum production Gastrointestinal: Denies: Abdominal Pain, Nausea, Vomiting Genitourinary: Denies: Dysuria Musculoskeletal: Denies: Joint Pain, Joint Tenderness Skin: Denies: Rash, Wounds Neurological: Denies: Numbness, Tingling, Focal weakness Psychiatric: Denies: Anxiety, Depression, Homicidal Ideations, Suicidal Ideations Hematologic/ Lymphatic: Denies: Easy Bruising, Easy Bleeding VTE Information - Inpt Only VTE Present on Admission: No VTE Pharm Prophylaxis ordered?: Yes - Physical Exam General: Alert, Oriented x3, Cooperative, - - anxious HEENT: Atraumatic, PERRLA, EOMI, Normocephalic Oral: Moist Mucosa Neck: Supple, No JVD, Negative Carotid Bruits Lungs: Clear to auscultation, Normal air movement, No rhonchi, No wheeze, No rales Cardiovascular: Regular rate, Regular Rhythm, Normal S1, Normal S2, No murmurs Abdomen: Bowel Sounds Present, Soft, Non Tender, Non-Distended, No Hepato- splenomegaly Extremities: No clubbing, No cyanosis, No edema, Capillary Refill Less than 3 Seconds Skin: No rashes, No breakdown Musculoskeletal: No Tenderness to Palpation of Joints or Extremities Lymphatic: No Cervical, Supraclavicular, or Inguinal Adenopathy Neurological: Cranial nerves II-XII grossly intact, Neuro grossly intact, Motor Exam 5/5 strength throughout Psych/Mental Status: Anxious, Alert and oriented to time, place, person, mood and affect Vital Signs Temp Pulse Resp BP Pulse Ox 98.4 F 78 16 152/83 H 96 03/06/19 15:43 03/06/19 18:23 03/06/19 18:23 03/06/19 18:23 03/06/19 18:23 Oxygen Delivery Method Room Air Weight: 135 lb Body Mass Index (BMI) 25.4 Laboratory Tests Past 24 Hrs 03/06/19 03/06/19 03/06/19 15:55 15:55 15:55 WBC 6.2 RBC 4.49 Hgb 13.1 Hct 39.1 MCV 87.1 MCH 29.2 MCHC 33.5 RDW 13.5 RDW Differential 42.8 Plt Count 234 MPV 8.8 Immature Gran % (Auto) 0.200 Neut % (Auto) 67.9 Lymph % (Auto) 18.0 L [place] % (Auto) 10.5 H Eos % (Auto) 3.1 Baso % (Auto) 0.3 Absolute Neuts (auto) 4.2 Absolute Lymphs (auto) 1.12 Total Counted Not Reportable PT 13.0 INR 1.0 APTT 26.1 Sodium 132 L Potassium 4.4 Chloride 100 Carbon Dioxide 28.0 Anion Gap 4 L BUN 25 H Creatinine 1.31 H Estim Creat Clear Calc 24.98 Est GFR (MDRD) Af Amer 50 L Est GFR (MDRD) Non-Af 41 L BUN/Creatinine Ratio 19.1 Glucose 103 Calcium 9.6 Troponin I 5.030 H* Diagnostic Data Chest X-Ray 03/06/19 16:15 IMPRESSION: No acute process Electronically Signed: Eddie Ragland, at 16:47 EDT Tel , Service support , Chest CTA 03/06/19 16:54 IMPRESSION: Normal CTA chest examination, without a demonstrated pulmonary embolism or arterial dissection. mild aneurysmal dilatation of the ascending thoracic aorta which measures 3.5 cm AP by 3.3 cm mediolateral diameter. There is calcific coronary atherosclerosis. There is a coronary stent within the LAD.. There are scattered groundglass pulmonary opacities, limited exam due to motion artifact, scattered areas of subsegmental atelectasis. These findings are infectious/inflammatory and/or pulmonary venous congestion Multilevel spondylosis thoracic and lumbar spine Mild biapical pulmonary scarring and pleural calcifications Stable 5 mm left upper lobe pulmonary nodule Stable pectus deformity of the chest Wall thickening of the stomach likely due to incomplete distention Electronically Signed: Eddie Ragland, at 17:54 EDT Tel , Service support , Assessment/Plan All Active Problems (Last Reviewed 02/26/19 @ 16:47 by Tejas Kim DO) Chest pain (Acute) Elevated troponin (Acute) Unstable angina (Acute) Cataract (Resolved) Old myocardial infarction (Resolved) Troponin I above reference range (Resolved) Chest pain (Resolved) 83-year-old female admitted with a complaint of left sided neck pain and shoulder pain 1. Nonstemi * Admit to PCU with telemetry. * Patient is one-week status post drug-eluting stent placement in the LAD after she presented with chest tightness and was found to have a non-STEMI. * Cardiac cath done 1 week ago showed proximal LAD 75% stenosis that required PCI. * Patient currently on aspirin and Brilinta which she says she has been compliant with. Currently on low-dose pravastatin as she said she was allergic to statins. Cardiology plan to titrate statins upwards gradually. * Troponin is 5 on admission and EKG showed no acute ST changes. * CT angiogram done was negative for PE. * Will likely need cardiac cath. * Continue aspirin and Brilinta as well as statin. * case discussed with Dr Bradshaw * 2. Mild hyponatremia: Sodium is 132. Patient is currently stable. Will monitor. 3. Chronic heart failure with preserved ejection fraction: EF is 65%. Currently stable. 4. Hypertension: * On losartan 25 mg daily. * Blood pressure has been elevated and was in the 180s on admission but this is likely also due to severe anxiety which is contributing to blood pressure elevation. * IV hydralazine prn * Had junctional bradycardia during admission last week and so losartan dose was reduced. Not on beta-orion on account of bradycardia. 5. Hypothyroidism: On Synthroid. DVT prophylaxis: On heparin drip. Code Visit Inpatient E&M: [id number] Init Hosp L3
--- NOTE | 2019-03-06 19:49 | EKG12_ITS ---
Test Reason : Blood Pressure : / mmHG Vent. Rate : 083 BPM Atrial Rate : 083 BPM P-R Int : 150 ms QRS Dur : 120 ms QT Int : 380 ms P-R-T Axes : 068 -08 047 degrees QTc Int : 446 ms Normal sinus rhythm Right bundle branch block Abnormal ECG Confirmed by CHAPITO MARCANO, SHAHZAD ([id number]), communications editor JUSTYNA LYNN ([id number] on 03/12/2019 1:08:29 PM Referred By: Alethea Hernandez Confirmed By:SHAHZAD URIARTE MD
--- NOTE | 2019-03-06 19:53 | PCM.CONS.C ---
Problem List (1) NSTEMI (non-ST elevated myocardial infarction) Status: Acute (2) CAD (coronary artery disease) Status: Acute (3) S/P coronary artery stent placement Status: Chronic Comment: IVUS guided PCI/OZIEL to prox LAD 02/27/19 (4) Valvular heart disease Status: Chronic (5) Pure hypercholesterolemia Status: Chronic (6) Essential (primary) hypertension Status: Chronic Reason for Consult Date of Consultation: 03/06/19 History of Present Illness: The patient is a 83 year old white female with a past medical history of underlying CAD status post LAD intravascular ultrasound and LAD PTCA/stent (02-27-19) and hypertension who presents for evaluation of left neck discomfort, back discomfort, shortness of breath/dyspnea, nausea, and fatigue with findings of an abnormal troponin I level. The patient presented recently with concerns of neck discomfort. She underwent evaluation and was found to have indeterminate troponin I levels. Her ECG had demonstrated sinus rhythm with a right bundle branch block pattern. She subsequently underwent diagnostic cardiac catheterization. She was found to have LAD proximal disease. She underwent intravascular ultrasound which was thought to be abnormal. She subsequently received LAD PTCA/stent. She was monitored following her procedure. She was eventually released home for continued outpatient follow-up. She states she has been taking her medications as prescribed with the exception of not taking her statin therapy. She states that she has been up and about and feeling somewhat fatigued. Yesterday she states she actually felt better and was out and about with her . However today she states she noted left neck discomfort, felt more short of breath/dyspnea, had nausea, and felt somewhat more tired and fatigued. She presented to her PCPs office for evaluation and was evaluated by the MIXER HELPER. It appears then ECG was performed which demonstrate her sinus rhythm with a right bundle branch block pattern. Based upon her symptoms she was referred back to the emergency department for further evaluation and care. In the emergency department she underwent additional laboratory studies. Her troponin I level was 5.03. Her ECG demonstrated sinus rhythm with her right bundle branch block pattern. A chest CT scan was performed. It demonstrated no thromboembolic disease, mild aneurysmal dilatation of the thoracic aorta without obvious complication, and LAD stent being present. She has denied any other forms of chest discomfort other than a fleeting left-sided sharp discomfort. The patient has denied orthopnea or PND. There is been no obvious peripheral pitting edema. There is been no near syncope or syncope. The patient did note that during her morning exercises before she gets out of bed she felt both her lower extremities to be somewhat numb feeling . However she states that she had no loss of motor function. He was able to get up and out of bed without any difficulty. At the same time she had no other sensory or motor deficits or visual disturbances. [] Past Medical History Allergies/Adverse Reactions: Allergies latex Allergy (Mild, Verified 03/06/19 15:53) Rash Penicillins [PCN] Allergy (Verified 03/06/19 15:53) Unknown Hafkclp-[id number]-[id number] Reductase Inhibitor Allergy (Verified 03/06/19 15:53) All blood cells low Home Medications: Ambulatory Orders Medication Instructions Recorded Aspirin [Aspirin, Baby] 81 mg PO DAILY@0800 12/13/15 Calcium Carbonate [Calcium] 1,200 mg PO DAILY 12/13/15 Cholecalciferol (VIT D3) [Vitamin 1,000 unit PO DAILY 12/13/15 D3] Fish Oil/Om-3/E/Folic/B6-B12 1 capsule PO QODAY 12/13/15 [Cardiovid Plus Softgel] Levothyroxine [Synthroid] 25 mcg PO MOTUWETHFR 12/13/15 ascorbic acid (vitamin C) 500 mg 500 mg PO QODAY tab 06/17/18 tablet colestipol 1 gram tablet 2 gm PO BID tab 12/10/18 Cyanocobalamin (Vitamin B-12) 1,000 mcg PO QODAY 02/26/19 [Vitamin B-12] Vitamin B Complex [B Complex] 1 tab PO QODAY 02/26/19 Losartan Potassium 25 mg PO DAILY 03/06/19 Pravastatin [Pravachol] 20 mg PO QHS 03/06/19 Ticagrelor [Brilinta] 90 mg PO BID 03/06/19 Past Medical History (Chronic Problems): Chronic Problems (Last Reviewed 02/26/19 @ 16:47 by Tejas Kim DO) Valvular heart disease (Chronic) S/P coronary artery stent placement (Chronic ~02/27/19) IVUS guided PCI/OZIEL to prox LAD 02/27/19 Essential (primary) hypertension (Chronic) Pure hypercholesterolemia (Chronic) Atherosclerosis of [place] coronary artery of [place] heart without angina pectoris (Chronic) Non-rheumatic tricuspid valve insufficiency (Chronic) Diastolic dysfunction (Chronic) Hx of congestive heart failure (Chronic) Nonrheumatic mitral valve insufficiency (Chronic) Nonrheumatic aortic valve insufficiency (Chronic) Nonrheumatic mitral valve prolapse (Chronic) CHF (congestive heart failure) (Chronic) Surgical History: angioplasty, appendectomy, cataract, - - 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 Psychiatric History: No pertinent psych hx LEG MAN History: No pertinent LEG MAN history - *Family History Maternal Family History: Family History (Last Reviewed 02/26/19 @ 16:47 by Teajs Kim DO) Father CAD (coronary artery disease) Myocardial infarction Mother CVA (cerebral vascular accident) Brother Aneurysm Brother Heart disease Sister Afib Parkinson's disease History Items: No pertinent history Paternal Family History: Family History (Last Reviewed 02/26/19 @ 16:47 by Tejas Kim DO) Father CAD (coronary artery disease) Myocardial infarction Mother CVA (cerebral vascular accident) Brother Aneurysm Brother Heart disease Sister Afib Parkinson's disease History Items: Heart Disease Sibling Family History: Family History (Last Reviewed 02/26/19 @ 16:47 by Tejas Kim DO) Father CAD (coronary artery disease) Myocardial infarction Mother CVA (cerebral vascular accident) Brother Aneurysm Brother Heart disease Sister Afib Parkinson's disease History Items: Heart Disease Lives: Spouse/ Significant Other Smoking Status: Never smoker Tobacco Use: Non-smoker Alcohol: None Drugs: None Review of Systems - Review of Systems General: Reports: Fatigue. Denies: Fever, Night Sweats Cardiovascular: Reports: Chest Discomfort - Left neck discomfort, Shortness of Breath Respiratory: Reports: Shortness of Breath. Denies: Cough, Sputum Production, Hemoptysis Gastrointestinal: Denies: Hematemesis, Hematochezia, Melena Genitourinary: Denies: Dysuria, Hematuria Skin: Denies: Rash Subjectve: This is an 83-year-old white female who appears to be resting comfortably at this time in no acute distress. Objective: Vital Signs Temp Pulse Resp BP Pulse Ox 98.1 F 93 12 172/95 H 97 03/06/19 19:43 03/06/19 19:43 03/06/19 19:43 03/06/19 19:43 03/06/19 19:43 Oxygen Delivery Method Room Air Weight: 132 lb 15.02 oz Body Mass Index (BMI) 25.1 General: Awake, Alert, Oriented x 3, Cooperative, No Acute Distress HEENT: Atraumatic, Normocephalic, PERRL, EOMI, Sclera Non Icteric Oral: Moist Mucosa Neck: Supple, Good ROM, No JVD Lungs: Clear to auscultation Cardiovascular: Regular Rhythm, Normal S1, Normal S2 Murmur Murmur: Grade 2/6, Harsh, Mid Systolic, LLSB, [place] Vascular: No Carotid Bruits, Normal Radial Pulses Abdomen: Bowel Sounds Present, Soft, Non Tender Extremities: No Cyanosis, No Clubbing, No edema Neurological: No Focal Motor or Sensory Deficit Psych/Mental Status: Appropriate 03/06/19 15:55: WBC 6.2, RBC 4.49, Hgb 13.1, Hct 39.1, MCV 87.1, MCH 29.2, MCHC 33.5, RDW 13.5, RDW Differential 42.8, Plt Count 234, MPV 8.8, Immature Gran % (Auto) 0.200, Neut % (Auto) 67.9, Lymph % (Auto) 18.0 L, [place] % (Auto) 10.5 H, Eos % (Auto) 3.1, Baso % (Auto) 0.3, Absolute Neuts (auto) 4.2, Total Counted Not Reportable 03/06/19 15:55: Sodium 132 L, Potassium 4.4, Chloride 100, Carbon Dioxide 28.0, Anion Gap 4 L, BUN 25 H, Creatinine 1.31 H, Est GFR (MDRD) Af Amer 50 L, Est GFR (MDRD) Non-Af 41 L, BUN/Creatinine Ratio 19.1, Glucose 103, Calcium 9.6, Troponin I 5.030 H* 03/06/19 15:55: PT 13.0, INR 1.0, APTT 26.1 Rhythm: Sinus rhythm EKG: As noted above ECHO: 02-28-19 Left ventricular systolic function normal with an estimated LVEF of 60%; mild left atrial enlargement; mild to moderate mitral valve prolapse; mild diffuse mitral valve thickening; 2D echocardiographic images compatible with redundant and/or ruptured chordae tendon a; mild to moderate MR; moderate TR; mild diffuse aortic valve thickening and mild focal aortic valve calcification; mild to moderate AI; trivial pericardial effusion; no cardiac tamponade physiology; estimated RV systolic pressure of 35 mmHg; diastolic dysfunction considered indeterminate Cardiac Cath: 02-27-19 CORONARY ANGIOGRAPHY DOMINANCE: Right Dominant LEFT HEART ASSESSMENT Left Ventricular Ejection Fraction: by LV Gram 65 % Normal LV wall motion Elevated Left Ventricular End Diastolic Pressure LVEDP: 19 mmHg LEFT MAIN: Mild luminal irregularities LEFT ANTERIOR DESCENDING ARTERY: PROX LAD: Hazy; Eccentric; 75 % Stenosis MID LAD: Mild luminal irregularities DIAGONAL 1: Proximal - Mild luminal irregularities CIRCUMFLEX ARTERY: PROX CIRC: Mild luminal irregularities RIGHT CORONARY ARTERY: Diffuse; Eccentric: 25 % Stenosis VALVE FINDINGS: Normal Aortic Valve function Mitral Valve Prolapse Mild AORTIC ROOT: Possibly Dilated possibly dilated PCI: 02-27-19 CONCLUSIONS Successful IVUS guided PCI of pLAD with OZIEL Chest CT Scan: As noted above: Please see official report Assessment/Plan 1. Non-ST segment elevation LA The patient presents with symptoms and subsequent objective findings based upon her cardiac enzymes compatible with a non-ST segment elevation LA. At the present time the concern is related to her underlying cardiovascular condition and her recent LAD PCI for concerns of possible in-stent restenosis. The patient has not been found to have definitive evidence of other etiologies to explain her symptoms and her her troponin I levels such as thromboembolic disease, CVA, renal insufficiency, sepsis syndrome, etc. At the present time she will continue to be monitored. This will include monitoring her cardiac rhythm, her enzymes, and her ECG. She will have a transthoracic echocardiogram to reassess her left ventricular wall motion systolic function to look for regional wall motion abnormalities that would be concerning for an underlying acute coronary syndrome event. She will need to be considered for repeat diagnostic cardiac catheterization to reassess her coronary anatomy/stent anatomy. She will continue medical management with dual include aspirin, antiplatelets, anticoagulants, beta blockers as tolerated, and other medications as tolerated. 2. CAD status post LAD PCI The patient was recently diagnosed with progressive CAD in the proximal LAD distribution. She underwent further evaluation with intravascular ultrasound which confirmed significant LAD disease. She subsequently underwent LAD PCI/OZIEL with what appeared to be good angiographic results. Her overall left ventricular wall motion systolic function appeared to be preserved based upon her diagnostic studies performed. She has been on medical management since that time. Her clinical course is as defined above. She now has objective findings concerning for non-ST segment elevation LA. Her ECG continues to represent an underlying right bundle branch block pattern. At the present time she appears in no acute distress. She will continue to be monitored. She will continue noninvasive evaluation. She will be considered for repeat invasive evaluation as described above. In the meantime she will continue medical therapy. 3. Valvular heart disease The patient does have valvular heart disease as previously noted. This will be reassessed as deemed appropriate. 4. Hyperlipidemia The patient has been intolerant to atorvastatin in the past. At her most recent hospitalization she was agreeable to attempting alternative statin therapy with pravastatin. She did receive the prescription for this but states she has not yet taken it. 5. Hypertension The patient states she has been monitoring her blood pressure at home. She notes that has been up and down. She states when she becomes anxious her blood pressure significantly increases. She will need her blood pressure monitored. She will need to continue medical management. Comment: The patient's case was discussed reviewed with the patient, her , her daughter, and Dr. Reid as well as the [facility] emergency department staff. This note was generated with [employer] dictation software. It may contain incorrect words, spelling, and punctuation that were not noted in checking the note before signing.
--- NOTE | 2019-03-06 20:15 | ECHOD_ITS ---
Reason For Study: S/P MN Procedure This was a 2D Doppler, Color Flow transthoracic echocardiogram. The exam was of adequate technical quality. Exam performed portable in patient room. Left Ventricle Normal LV size. Segmental dysfunction with preserved ejection fraction (see wall motion). The estimated ejection fraction is 55 %. No evidence for diastolic dysfunction. Mid-Anterior : Mildly hypokinetic. Anterior [place] : Mildly hypokinetic. Inferior [place] : Mildly hypokinetic. Right Ventricle Normal RV size. Normal systolic function. Atria The left atrium is mildly enlarged. Normal right atrium. No doppler evidence for ASD. Mitral Valve There is no mitral annular calcification. Mild diffuse mitral valve thickening. 2D echocardiographic images appearing c/w redundant and / or ruptured chordae tendonae. The mitral papillary muscle appears thickened and/or calcified. Mild to moderate mitral valve prolapse. Mild-Moderate (1-2+) eccentric mitral valve insufficiency. Tricuspid Valve Normal tricuspid valve. Moderate (2+) tricuspid valve insufficiency. Right ventricular systolic pressure estimated to be 26 mmHg. Aortic Valve Trisinus/trileaflet aortic valve. Mild diffuse aortic valve thickening. Mild focal aortic valve calcification. Mild-Moderate (1-2+) aortic valve insufficiency. Pulmonic Valve The pulmonic valve is not well visualized. Great Vessels The aortic root is not well visualized. Pericardium/Pleural Trivial pericardial effusion. There are no echocardiographic indications of cardiac tamponade. MMode/2D Measurements & Calculations LVIDd: 4.6 cm IVSd: 1.0 cm LAV(MOD-bp): 43.8 ml LVIDs: 3.5 cm LVPWd: 0.94 cm LAV(MOD-bp) Indexed: 27.6 ml/m2 RVDd: 2.4 cm FS: 23.4 % LAV(MOD-sp2): 40.3 ml LAV(MOD-sp4): 44.7 ml LA dimension(2D): 3.4 cm LA A4 area: 18.7 cm2 RA A4 area: 15.9 cm2 Time Measurements MV dec time: 0.20 sec Doppler Measurements & Calculations MV E max bradford: 54.8 cm/sec Lat Peak E' [place]: 7.4 cm/sec Med Peak E' [place]: 5.4 cm/sec MV A max br[place]: 70.7 cm/sec E/E' lat: 7.4 E/E' med: 10.1 MV E/A: 0.78 Ao V2 max: 148.3 cm/sec AI max bradford: 464.9 cm/sec LV V1 max: 110.6 cm/sec Ao max P.8 mmHg AI max P.5 mmHg LV V1 max P.9 mmHg AI dec slope: 233.1 cm/sec2 AI P1/2t: 584.2 msec PA V2 max: 85.2 cm/sec TR max bradford: 240.5 cm/sec TR max P.1 mmHg Interpretation Summary Segmental dysfunction with preserved ejection fraction (see wall motion). The estimated ejection fraction is 55 %. The left atrium is mildly enlarged. Mild diffuse mitral valve thickening. 2D echocardiographic images appearing c/w redundant and / or ruptured chordae tendonae. The mitral papillary muscle appears thickened and/or calcified. Mild to moderate mitral valve prolapse. Mild-Moderate (1-2+) eccentric mitral valve insufficiency. Moderate (2+) tricuspid valve insufficiency. Mild diffuse aortic valve thickening. Mild focal aortic valve calcification. Mild-Moderate (1-2+) aortic valve insufficiency. Trivial pericardial effusion. There are no echocardiographic indications of cardiac tamponade. Right ventricular systolic pressure estimated to be 26 mmHg. No evidence for diastolic dysfunction. Ordering Physician: Jakub Bradshaw Referring Physician: Dori Boyd Performed By: Cherelle Figueredo, DESTINEY, RVT
[2019-03-06] MEDS: Losartan Potassium 25 MG Tablet PO (22:57)
[2019-03-06] MEDS: Metoprolol Tartrate 25 MG Tablet 12.5 MG PO (22:57)
[2019-03-06] MEDS: TICAGRELOR 90 MG TABLET PO (23:02)
[2019-03-06] MEDS: Pravastatin 20 MG Tablet PO (23:03)
[2019-03-06 23:33] LABS: Partial Thromboplast Time 171.6 Seconds (24.1-36.2)
[2019-03-07] VITALS (10 sets, daily range): BP systolic 98–134; BP diastolic 57–78; PULSE 58–66; RESP 16; TEMP 36.4–36.7; O2SAT 95–97
[2019-03-07] MEDS: 0.9% NaCl Peripheral Flush Adult/Peds IV (02:01)
[2019-03-07] MEDS: Levothyroxine 50 MCG Tablet PO (05:26)
[2019-03-07 06:33] LABS: Absolute Lymphocyte Count 0.93 X10^3/ul (0.83-4.51); Absolute Neutrophil Count 2.9 X10^3/uL (2.0-7.7); Basophil# 0.02 X10^3/uL; Basophil% 0.4 % (0-1); Eosinophil# 0.22 X10^3/uL; Eosinophils% 4.6 % (0-5); Hemoglobin 13.5 g/dl (12.0-15.0); Lymphocyte # 0.93 X10^3/ul (4.0); Lymphocyte % 19.3 % (19-41); Mean Corp Hgb Conc 33.8 g/gl (32-36); Mean Corpuscular Hgb 28.7 pg (27.0-32.0); Mean Corpuscular Volume 84.9 fL (81-99); Mean Platelet Vol. 9.2 fl (6.2-12.0); Monocyte% 16.6 % (0-10); Neutrophil # 2.85 X10^3/uL (2.7-7.7); Neutrophil % 58.9 % (47-70); Platelet Count 244 K/mm3 (150-450); RBC Distribution Width CV 13.3 % (11.6-14.6); RBC Distribution Width SD 40.9 fl (35.1-43.9); Red Blood Count 4.71 M/mm3 (4.2-5.4); White Blood Count 4.8 K/mm3 (4.4-11.0)
[2019-03-07 06:36] LABS: POSITIVE COUNT NO; POSITIVE DIFFERENTIAL NO; POSITIVE MORPHOLOGY NO
[2019-03-07 07:02] LABS: Anion Gap 9 (5-15); BUN 22 mg/dL (7-18); Calcium,Total 9.3 mg/dL (8.5-10.1); Chloride 101 mmol/L (98-107); Creatinine, Serum 1.05 mg/dL (0.55-1.02); EST Glomerular Filtration Rate 53 mL/min (>60); Est Glom Filt Rate - Afr Amer 64 mL/min (>60); Estimated Creatinine Clearance 31.17 ml/min; Glucose 100 mg/dL (74-106); Potassium 4.1 mmol/L (3.5-5.1); Sodium Level 135 mmol/L (136-145)
--- NOTE | 2019-03-07 07:25 | PCM.PROGNOTE ---
Patient Problems: Active and Suspected Problems (Last Reviewed 02/26/19 @ 16:47 by Tejas Kim DO) NSTEMI (non-ST elevated myocardial infarction) (Acute) CAD (coronary artery disease) (Acute) Subjective: The patient is an 83-year-old female with a past medical history of coronary artery disease, intravenous ultrasound-guided PCI/OZIEL to the proximal LAD on 02/27/2019, hypertension, hyperlipidemia, diastolic dysfunction, nonrheumatic mitral/aortic/tricuspid valve insufficiency and congestive heart failure presented to the emergency department at [facility] on 03/06/2019 complaining of left-sided neck pain and shoulder pain associated with shortness of breath. Symptoms worsened with exertion. Vital signs at presentation to the emergency room were temperature 98.4, pulse rate 77, blood pressure 137/78, respiratory rate 18 and she was 96% saturated on room air. An EKG showed a right bundle branch block with left axis deviation. CBC was unremarkable. Sodium was low at 132 and the BUN was 25 with a creatinine of 1.31. Initial troponin was elevated at 5.03. Chest x-ray showed hyperinflation with no infiltrates, pleural effusions or pulmonary vascular congestion. A CTA of the chest was negative for pulmonary emboli. There was mild aneurysmal dilatation of the ascending thoracic aorta which measured 3.5 cm x 3.3 cm. There were scattered groundglass pulmonary opacities. There were pleural calcifications in the apices and there was a stable 5 mm left upper lobe pulmonary nodule. She was admitted to a monitored bed on the progressive care unit with a diagnosis of an STEMI. She was continued on Brilinta and aspirin and a heparin infusion initiated in the emergency department. Dr. Bradshaw was consulted to participate in management. All events of the past 24 hours have been reviewed. Patient is afebrile. Blood pressures are intermittently elevated and I suspect this is secondary to anxiety. She is maintaining appropriate oxygen saturation on room air. All lab was personally reviewed. CBC is normal. Sodium is up to 135 today from 132 at admission. The BUN is 22 and the creatinine has improved and is 1.05, down from 1.31 at admission. Troponin has trended down to 4.74. - Physical Exam General: Alert, Oriented x3, Cooperative, - - Appears anxious HEENT: Atraumatic, PERRLA, EOMI, Normocephalic Oral: Moist Mucosa Neck: Supple, No JVD, Negative Carotid Bruits, No Nodes, No Nuchal Rigidity, Trachea Midline Lungs: Clear to auscultation - With excellent air exchange, No rhonchi, No wheeze, No rales Cardiovascular: Regular rate, Regular Rhythm, Normal S1, Normal S2, No murmurs, No rub noted, No Gallop, - - Telemetry shows normal sinus rhythm with bundle branch block and occasional PVC. Abdomen: Bowel Sounds Present, Soft, Non Tender, Non-Distended Extremities: No clubbing, No cyanosis, No edema, Peripheral Pulses Normal Skin: No rashes Neurological: Cranial nerves II-XII grossly intact, Neuro grossly intact Psych/Mental Status: Anxious Vital Signs Temp Pulse Resp BP Pulse Ox 98.1 F 60 16 131/71 H 96 03/07/19 05:00 03/07/19 05:00 03/07/19 05:00 03/07/19 05:00 03/07/19 05:00 Oxygen Delivery Method Room Air Weight: 132 lb 15.02 oz Body Mass Index (BMI) 25.1 Intake and Output for Last 24 Hours 03/05/19 03/06/19 03/07/19 23:59 23:59 23:59 Intake Total 181.2 / 181.2 85.5 / 85.5 Balance 181.2 / 181.2 85.5 / 85.5 Laboratory Tests Past 24 Hrs 03/06/19 03/06/19 03/06/19 15:55 15:55 15:55 WBC 6.2 RBC 4.49 Hgb 13.1 Hct 39.1 MCV 87.1 MCH 29.2 MCHC 33.5 RDW 13.5 RDW Differential 42.8 Plt Count 234 MPV 8.8 Immature Gran % (Auto) 0.200 Neut % (Auto) 67.9 Lymph % (Auto) 18.0 L [place] % (Auto) 10.5 H Eos % (Auto) 3.1 Baso % (Auto) 0.3 Absolute Neuts (auto) 4.2 Absolute Lymphs (auto) 1.12 Total Counted Not Reportable PT 13.0 INR 1.0 APTT 26.1 Sodium 132 L Potassium 4.4 Chloride 100 Carbon Dioxide 28.0 Anion Gap 4 L BUN 25 H Creatinine 1.31 H Estim Creat Clear Calc 24.98 Est GFR (MDRD) Af Amer 50 L Est GFR (MDRD) Non-Af 41 L BUN/Creatinine Ratio 19.1 Glucose 103 Calcium 9.6 Troponin I 5.030 H* 03/06/19 03/06/19 03/06/19 19:53 23:05 23:05 WBC RBC Hgb Hct MCV MCH MCHC RDW RDW Differential Plt Count MPV Immature Gran % (Auto) Neut % (Auto) Lymph % (Auto) [place] % (Auto) Eos % (Auto) Baso % (Auto) Absolute Neuts (auto) Absolute Lymphs (auto) Total Counted PT INR APTT 171.6 H* Sodium Potassium Chloride Carbon Dioxide Anion Gap BUN Creatinine Estim Creat Clear Calc Est GFR (MDRD) Af Amer Est GFR (MDRD) Non-Af BUN/Creatinine Ratio Glucose Calcium Troponin I 4.850 H* 4.740 H* 03/07/19 03/07/19 03/07/19 06:05 06:05 06:05 WBC 4.8 RBC 4.71 Hgb 13.5 Hct 40.0 MCV 84.9 MCH 28.7 MCHC 33.8 RDW 13.3 RDW Differential 40.9 Plt Count 244 MPV 9.2 Immature Gran % (Auto) 0.200 Neut % (Auto) 58.9 Lymph % (Auto) 19.3 [place] % (Auto) 16.6 H Eos % (Auto) 4.6 Baso % (Auto) 0.4 Absolute Neuts (auto) 2.9 Absolute Lymphs (auto) 0.93 Total Counted Not Reportable PT INR APTT 70.0 H Sodium 135 L Potassium 4.1 Chloride 101 Carbon Dioxide 25.0 Anion Gap 9 BUN 22 H Creatinine 1.05 H Estim Creat Clear Calc 31.17 Est GFR (MDRD) Af Amer 64 Est GFR (MDRD) Non-Af 53 L BUN/Creatinine Ratio 21.0 H Glucose 100 Calcium 9.3 Troponin I Medical Necessity - Tobacco Use Smoking Status: Never smoker Tobacco Use: Non-smoker Assessment/Plan All Active Problems (Last Reviewed 02/26/19 @ 16:47 by Tejas Kim DO) NSTEMI (non-ST elevated myocardial infarction) (Acute) CAD (coronary artery disease) (Acute) Chest pain (Acute) Elevated troponin (Acute) Unstable angina (Acute) Cataract (Resolved) Old myocardial infarction (Resolved) Troponin I above reference range (Resolved) Chest pain (Resolved) Impressions 1. NSTEMI-acute. Recent NSTEMI last week and she had a stent to the LAD 2. Coronary artery disease-status post PCI/OZIEL to LAD on 02/27/2019 3. Hypertension 4. Hyperlipidemia 5. Diastolic dysfunction 6. Nonrheumatic mitral/aortic/tricuspid valve insufficiency-mild 7. Hyponatremia 8. Dehydration per lab D/W Dr. Bradshaw - plan is for repeat cath on Saturday if she remains stable......if she has more CP, juan c if EKG changes will need emergent cath treat anxiety with low dose benzodiazepine Recheck lab in the AM Code Visit Inpatient E&M: 22876 Subs Hosp L2
[2019-03-07] MEDS: Aspirin 81 MG TAB.CHEW PO (09:28)
[2019-03-07] MEDS: TICAGRELOR 90 MG TABLET PO ×2 (09:28→20:35)
[2019-03-07] MEDS: Losartan Potassium 25 MG Tablet PO (09:28)
--- NOTE | 2019-03-07 09:52 | NURSING ---
Dr. Hernandez requested for patient to have IV dose of Ativan now. RN attempted to administer same to patient but she refused.
[2019-03-07] MEDS: Ascorbic Acid 500 MG Tablet PO (13:17)
[2019-03-07] MEDS: Cyanocobalamin 500 MCG Tablet 1000 MCG PO (13:17)
[2019-03-07 13:18] LABS: Partial Thromboplast Time 61.8 Seconds (24.1-36.2)
--- NOTE | 2019-03-07 15:50 | CM.UR ---
Addendum entered by Sangita Spencer 03/07/19 16:07: Reviewed patient's [employer] formulary. Eliquis and xarelto are tier 3, same as brillanta. pradaxa is tier 4. So alternative will probably be about the same munoz. Jim Spencer RN, CCM. Original Note: RN GARR[employer] SEARCH ENGINE OPTIMIZATION SPECIALIST CM to room to meet with patient for initial transition planning/care coordination assessment. RN CM introduced self and role at [facility]. Pt voices understanding and consents to assessment at this time. Pt resting in bed in no distress at this time. Daughter, Bessy, at beside. Pt is A/O at this time and answers all questions appropriately. Care providers, pharmacy, and demographics verified at this time. PCP: Dr. Boyd Specialists: Leeann Preferred Pharmacy: [facility] Insurance: Aetna [facility] Prescription Benefit: Yes. She is already on brillanta. $80 per 30 day supply. Living Will/HPOA: None. Declined information at this time. LNOK: Bipin, . Bessy daughter. Living Arrangements: [place]--about 8 steps with railing. considering moving to ranch style. ADLs: Independent. Transportation: Self DME: grab bars. no preference on dme company. HHC/SNF: None Plan is for heart cath on Saturday. PLAN: Anticipating home with no needs. Jim Spencer RN, CCM.
--- NOTE | 2019-03-07 15:59 | CM.UR ---
Heart Cath planned for Saturday. List of in-network facilities on [employer] [facility] For any questions, contact case management.
--- NOTE | 2019-03-07 17:15 | PN.CARD_ITS ---
Subjectve: The patient states she is feeling better overall today. She denies ongoing neck discomfort, difficulty breathing, and she states she does not feel quite as tired. Objective: Vital Signs Temp Pulse Resp BP Pulse Ox 97.5 F L 63 16 100/60 95 03/07/19 15:10 03/07/19 15:27 03/07/19 15:10 03/07/19 15:10 03/07/19 15:10 Oxygen Delivery Method Room Air Weight: 132 lb 15.02 oz Body Mass Index (BMI) 25.1 Intake and Output for Last 24 Hours 03/05/19 03/06/19 03/07/19 23:59 23:59 23:59 Intake Total 181.2 / 181.2 249.5 / 249.5 Balance 181.2 / 181.2 249.5 / 249.5 General: Awake, Alert, Oriented x 3, Cooperative, No Acute Distress HEENT: Atraumatic, Normocephalic, PERRL, EOMI, Sclera Non Icteric Oral: Moist Mucosa Neck: Supple, Good ROM Lungs: Clear to auscultation Cardiovascular: Regular Rhythm, Normal S1, Normal S2 Murmur Murmur: Grade 2/6, Harsh, Mid Systolic, LLSB, [place] Vascular: Normal Radial Pulses Abdomen: Bowel Sounds Present, Soft, Non Tender Extremities: No edema Psych/Mental Status: Appropriate 03/06/19 15:55: PT 13.0, INR 1.0, APTT 26.1 03/06/19 19:53: Troponin I 4.850 H* 03/06/19 23:05: Troponin I 4.740 H* 03/06/19 23:05: APTT 171.6 H* 03/07/19 06:05: WBC 4.8, RBC 4.71, Hgb 13.5, Hct 40.0, MCV 84.9, MCH 28.7, MCHC 33.8, RDW 13.3, RDW Differential 40.9, Plt Count 244, MPV 9.2, Immature Gran % (Auto) 0.200, Neut % (Auto) 58.9, Lymph % (Auto) 19.3, [place] % (Auto) 16.6 H, Eos % (Auto) 4.6, Baso % (Auto) 0.4, Absolute Neuts (auto) 2.9, Total Counted Not Reportable 03/07/19 06:05: Sodium 135 L, Potassium 4.1, Chloride 101, Carbon Dioxide 25.0, Anion Gap 9, BUN 22 H, Creatinine 1.05 H, Est GFR (MDRD) Af Amer 64, Est GFR (MDRD) Non-Af 53 L, BUN/Creatinine Ratio 21.0 H, Glucose 100, Calcium 9.3 03/07/19 06:05: APTT 70.0 H 03/07/19 13:00: APTT 61.8 H Rhythm: Sinus rhythm EKG: Sinus rhythm; right bundle branch block pattern ECHO: Interpretation Summary Segmental dysfunction with preserved ejection fraction (see wall motion). The estimated ejection fraction is 55 %. The left atrium is mildly enlarged. Mild diffuse mitral valve thickening. 2D echocardiographic images appearing c/w redundant and / or ruptured chordae tendonae. The mitral papillary muscle appears thickened and/or calcified. Mild to moderate mitral valve prolapse. Mild-Moderate (1-2+) eccentric mitral valve insufficiency. Moderate (2+) tricuspid valve insufficiency. Mild diffuse aortic valve thickening. Mild focal aortic valve calcification. Mild-Moderate (1-2+) aortic valve insufficiency. Trivial pericardial effusion. There are no echocardiographic indications of cardiac tamponade. Right ventricular systolic pressure estimated to be 26 mmHg. No evidence for diastolic dysfunction. Medical Necessity - Tobacco Use Smoking Status: Never smoker Tobacco Use: Non-smoker Assessment/Plan 1. Non-ST segment elevation AR The patient presents with symptoms and subsequent objective findings based upon her cardiac enzymes compatible with a non-ST segment elevation AR. At the present time the concern is related to her underlying cardiovascular condition and her recent LAD PCI for concerns of possible in-stent restenosis. The patient has not been found to have definitive evidence of other etiologies to explain her symptoms and her her troponin I levels such as thromboembolic disease, CVA, renal insufficiency, sepsis syndrome, etc. At the present time she will continue to be monitored. This will include monitoring her cardiac rhythm, her enzymes, and her ECG. Her transthoracic echocardiogram has demonstrated left ventricular regional wall motion abnormality's with mild hypokinesis of the mid anterior and anteroseptal segments with overall preserved LVEF of 55%. She will need to be considered for repeat diagnostic cardiac catheterization to reassess her coronary anatomy/stent anatomy. She will continue medical management with dual include aspirin, antiplatelets, anticoagulants, beta blockers as tolerated, and other medications as tolerated. 2. CAD status post LAD PCI The patient was recently diagnosed with progressive CAD in the proximal LAD distribution. She underwent further evaluation with intravascular ultrasound which confirmed significant LAD disease. She subsequently underwent LAD PCI/OZIEL with what appeared to be good angiographic results. Her overall left ventricular wall motion systolic function appeared to be preserved based upon her diagnostic studies performed. She has been on medical management since that time. Her clinical course is as defined above. She now has objective findings concerning for non-ST segment elevation AR. Her ECG continues to represent an underlying right bundle branch block pattern. At the present time she appears in no acute distress. She will continue to be monitored. She will be considered for repeat invasive evaluation as described above. In the meantime she will continue medical therapy. 3. Valvular heart disease The patient does have valvular heart disease as previously noted. She appears to have no significant change with her underlying valvular heart disease compared to her most recent transthoracic echocardiogram. 4. Hyperlipidemia The patient has been intolerant to atorvastatin in the past. At her most recent hospitalization she was agreeable to attempting alternative statin therapy with pravastatin. She did receive the prescription for this but states she has not yet taken it. 5. Hypertension The patient states she has been monitoring her blood pressure at home. She notes that has been up and down. She states when she becomes anxious her blood pressure significantly increases. She will need her blood pressure monitored. She will need to continue medical management. Comment: The patient's case was discussed reviewed with the patient and her daughter. This note was generated with [employer] dictation software. It may contain incorrect words, spelling, and punctuation that were not noted in checking the note before signing.
[2019-03-07] MEDS: Polyethylene Glycol 3350 17 GM PACKET PO (17:58)
[2019-03-07 20:26] LABS: Partial Thromboplast Time 54.1 Seconds (24.1-36.2)
[2019-03-07] MEDS: Pravastatin 20 MG Tablet PO (20:35)
[2019-03-07] MEDS: Calcium Carbonate 500 MG Tablet PO (20:35)
[2019-03-07] MEDS: Heparin Injection (Vial) 5,000 UNIT/ML VIAL IV (20:50)
[2019-03-08] VITALS (21 sets, daily range): BP systolic 87–144; BP diastolic 49–80; PULSE 56–96; RESP 11–20; TEMP 36.6–36.8; O2SAT 94–98
[2019-03-08] MEDS: HEPARIN/D5w 25,000 UNITS 25,000 UNITS/250 ML IV.SOLN. 10 UNITS IV (01:02)
[2019-03-08 04:08] LABS: Partial Thromboplast Time 91.2 Seconds (24.1-36.2)
[2019-03-08 04:17] LABS: Anion Gap 6 (5-15); BUN 34 mg/dL (7-18); BUN/Creat Ratio 23.9 RATIO (10-20); Calcium,Total 9.4 mg/dL (8.5-10.1); Chloride 101 mmol/L (98-107); Creatinine, Serum 1.42 mg/dL (0.55-1.02); EST Glomerular Filtration Rate 38 mL/min (>60); Est Glom Filt Rate - Afr Amer 46 mL/min (>60); Estimated Creatinine Clearance 23.05 ml/min; Glucose 97 mg/dL (74-106); Potassium 4.4 mmol/L (3.5-5.1); Sodium Level 136 mmol/L (136-145)
--- NOTE | 2019-03-08 05:55 | EKG12_ITS ---
Test Reason : AM Blood Pressure : / mmHG Vent. Rate : 065 BPM Atrial Rate : 065 BPM P-R Int : 156 ms QRS Dur : 120 ms QT Int : 422 ms P-R-T Axes : 072 -09 045 degrees QTc Int : 438 ms Normal sinus rhythm Right bundle branch block Abnormal ECG Confirmed by CHAPITO MARCANO, SHAHZAD ([id number]), digital editor JUSTYNA LYNN ([id number]) on 03/12/2019 1:10:55 PM Referred By: Alethea Hernandez Confirmed By:SHAHZAD URIARTE MD
[2019-03-08] MEDS: Levothyroxine 50 MCG Tablet PO (06:31)
[2019-03-08] MEDS: 0.9% Normal Saline 1,000 ML 50 ML IV (08:36)
[2019-03-08] MEDS: Calcium Carbonate 500 MG Tablet PO (08:40)
[2019-03-08] MEDS: TICAGRELOR 90 MG TABLET PO ×2 (08:40→21:39)
[2019-03-08] MEDS: Aspirin 81 MG TAB.CHEW PO (08:40)
[2019-03-08] MEDS: Vitamin B Comp W-C Capsule 1 CAP PO (08:41)
--- NOTE | 2019-03-08 09:48 | EKG12_ITS ---
Test Reason : AM Blood Pressure : / mmHG Vent. Rate : 065 BPM Atrial Rate : 065 BPM P-R Int : 152 ms QRS Dur : 114 ms QT Int : 416 ms P-R-T Axes : 068 -18 022 degrees QTc Int : 432 ms Normal sinus rhythm Septal infarct , age undetermined Abnormal ECG When compared with ECG of 08-MAR-2019 15:58, MANUAL COMPARISON REQUIRED, DATA IS UNCONFIRMED Confirmed by SUN MARCANO, LORRIE ([id number]), digital editor JEFFREY RODRIGUEZ ([id number]) on 03/10/2019 2:11:58 PM Referred By: Alethea Hernandez Confirmed By:LORRIE GARSIA MD
--- NOTE | 2019-03-08 10:08 | PCM.PN.CARD ---
Subjectve: The patient states overall she has been doing better. She appears to remain calm her. However, she did have an episode this morning of brief left-sided neck discomfort. Her vital signs remained stable. A follow-up ECG was obtained. There appeared to be no new acute ECG changes. Objective: Vital Signs Temp Pulse Resp BP Pulse Ox 97.9 F 86 17 128/71 H 96 03/08/19 08:22 03/08/19 09:55 03/08/19 09:55 03/08/19 09:55 03/08/19 09:55 Oxygen Delivery Method Room Air Weight: 132 lb 15.02 oz Body Mass Index (BMI) 25.1 Intake and Output for Last 24 Hours 03/06/19 03/07/19 03/08/19 23:59 23:59 23:59 Intake Total 181.2 / 181.2 699.3 / 699.3 105.5 / 105.5 Balance 181.2 / 181.2 699.3 / 699.3 105.5 / 105.5 General: Awake, Alert, Oriented x 3, Cooperative, No Acute Distress HEENT: Atraumatic, Normocephalic, PERRL, EOMI, Sclera Non Icteric Oral: Moist Mucosa Neck: Supple, Good ROM, No JVD Lungs: Clear to auscultation Cardiovascular: Regular Rhythm, Normal S1, Normal S2 Abdomen: Bowel Sounds Present, Soft, Non Tender Extremities: No edema Neurological: No Focal Motor or Sensory Deficit Psych/Mental Status: Appropriate 03/07/19 13:00: APTT 61.8 H 03/07/19 19:17: APTT 54.1 H 03/08/19 03:49: Sodium 136, Potassium 4.4, Chloride 101, Carbon Dioxide 29.0, Anion Gap 6, BUN 34 H, Creatinine 1.42 H, Est GFR (MDRD) Af Amer 46 L, Est GFR (MDRD) Non-Af 38 L, BUN/Creatinine Ratio 23.9 H, Glucose 97, Calcium 9.4 03/08/19 03:49: APTT 91.2 H* Rhythm: Sinus rhythm EKG: This rhythm; right bundle branch block pattern ECHO: Interpretation Summary Segmental dysfunction with preserved ejection fraction (see wall motion). The estimated ejection fraction is 55 %. The left atrium is mildly enlarged. Mild diffuse mitral valve thickening. 2D echocardiographic images appearing c/w redundant and / or ruptured chordae tendonae. The mitral papillary muscle appears thickened and/or calcified. Mild to moderate mitral valve prolapse. Mild-Moderate (1-2+) eccentric mitral valve insufficiency. Moderate (2+) tricuspid valve insufficiency. Mild diffuse aortic valve thickening. Mild focal aortic valve calcification. Mild-Moderate (1-2+) aortic valve insufficiency. Trivial pericardial effusion. There are no echocardiographic indications of cardiac tamponade. Right ventricular systolic pressure estimated to be 26 mmHg. No evidence for diastolic dysfunction. Medical Necessity - Tobacco Use Smoking Status: Never smoker Tobacco Use: Non-smoker Assessment/Plan 1. Non-ST segment elevation LA The patient presents with symptoms and subsequent objective findings based upon her cardiac enzymes compatible with a non-ST segment elevation LA. At the present time the concern is related to her underlying cardiovascular condition and her recent LAD PCI for concerns of possible in-stent restenosis. The patient has not been found to have definitive evidence of other etiologies to explain her symptoms and her her troponin I levels such as thromboembolic disease, CVA, renal insufficiency, sepsis syndrome, etc. At the present time she will continue to be monitored. This will include monitoring her cardiac rhythm, her enzymes, and her ECG. Her transthoracic echocardiogram has demonstrated left ventricular regional wall motion abnormality's with mild hypokinesis of the mid anterior and anteroseptal segments with overall preserved LVEF of 55%. She will need to be considered for repeat diagnostic cardiac catheterization to reassess her coronary anatomy/stent anatomy. It was felt prudent, unless otherwise urgent, to continue medical therapy, continue IV fluids to minimize the risk of, especially in light of her chest CT scan, IV contrast related nephropathy in light of her upcoming diagnostic cardiac catheterization. Thus, her cardiac catheterization will be planned for 03-09-19 barring unforeseen change to her clinical course. She will continue medical management with dual include aspirin, antiplatelets, anticoagulants, beta blockers as tolerated, and other medications as tolerated. 2. CAD status post LAD PCI The patient was recently diagnosed with progressive CAD in the proximal LAD distribution. She underwent further evaluation with intravascular ultrasound which confirmed significant LAD disease. She subsequently underwent LAD PCI/OZIEL with what appeared to be good angiographic results. Her overall left ventricular wall motion systolic function appeared to be preserved based upon her diagnostic studies performed. She has been on medical management since that time. Her clinical course is as defined above. She now has objective findings concerning for non-ST segment elevation LA. Her ECG continues to represent an underlying right bundle branch block pattern. At the present time she appears in no acute distress. She will continue to be monitored. She will be considered for repeat invasive evaluation as described above. In the meantime she will continue medical therapy. 3. Valvular heart disease The patient does have valvular heart disease as previously noted. She appears to have no significant change with her underlying valvular heart disease compared to her most recent transthoracic echocardiogram. 4. Hyperlipidemia The patient has been intolerant to atorvastatin in the past. At her most recent hospitalization she was agreeable to attempting alternative statin therapy with pravastatin. She did receive the prescription for this but states she has not yet taken it. 5. Hypertension The patient states she has been monitoring her blood pressure at home. She notes that has been up and down. She states when she becomes anxious her blood pressure significantly increases. She will need her blood pressure monitored. She will need to continue medical management. Comment: The patient's case was discussed reviewed with the patient. This note was generated with [employer] dictation software. It may contain incorrect words, spelling, and punctuation that were not noted in checking the note before signing.
[2019-03-08] MEDS: Losartan Potassium 25 MG Tablet PO (10:12)
[2019-03-08 10:51] LABS: Partial Thromboplast Time 72.2 Seconds (24.1-36.2)
[2019-03-08] MEDS: 0.9% NaCl Peripheral Flush Adult/Peds IV (11:55)
--- NOTE | 2019-03-08 12:12 | NURSING ---
Report called to HARMEET Lamar in phlebotomist lab assistant.
--- NOTE | 2019-03-08 15:24 | NURSING ---
Called report to HARMEET Sierra in ICU.
--- NOTE | 2019-03-08 15:31 | CL.I_ITS ---
Patient Name: HUBERT DAVIS Study Date: 03/08/2019 Performing: Jamison Triplett MD Ht: 61.02 inches 155 cm : 1935 Wt: 132.28 lbs 60 kg Age: 83 Gender: female BSA: 1.59 PROCEDURE(S) PERFORMED [id number] W OR WO PTCA, SINGLE CORONARY ARTERY [id number], EACH ADD'L CORONARY ART, SAME MAJOR CLINICAL PROFILE AND CO-MORBIDITIES Patient presents with NSTEMI for urgent cardiac cath Indications: Worsening Angina, ACS <= 24 hrs, Stable Known CAD Heart Failure: None Stress/Imaging Stress/Image Study Performed: No Stress/Image Study Performed: No Angina Classification Anginal Classification w/in 2 Weeks: CCS III CAD Presentations: Non-STEMI. Unstable angina. Non-STEMI. Symptom onset Date/Time: 03/07/2019 Time Not Available Comorbidities/Risk Factors: Hypertension Dyslipidemia Prior PCI Diabetes Mellitus: Diabetes Therapy: Diet CONCLUSIONS Successful PTCA/OZIEL proximal DIAG#1 with a 2.25 x 16 Promus Synergy; 75%-->0%, no dissection or encro achment into [place] LAD, confirmed with passage of 2.0 x 8 balloon. Successful PCI with PTCA to the mid LAD at bifurction of DIAG to ensure that no struts from DIAG sten t protruded into LAD, utilizing a 2.0 x 8 Balloon at 12 sully. RECOMMENDATIONS Highly recommend quitting all tobacco products Follow up with primary entry operator Risk factor modification ASA Indefinitley Plavix for at least 12 months Routine post interventional care Refer for Outpatient Cardiac Rehab Manual sheath removal per protocol Follow up with Dr. Bradshaw Successful Mynx Control closure of RFA. DESCRIPTION OF PROCEDURE The patient arrived to the procedure lab. The risks and benefits of the procedure as well as a full d escription of our services here and current unavailability of surgical backup were fully explained to the patient and/or their significant other prior to the catheterization. The Timeout was completed, verifying the correct patient and procedure. The patient's procedural site was prepped and draped in the usual fashion. Local anesthetic was given subcutaneously to right groin region with Lidocaine 2% Using a modified Seldinger technique,arterial access was obtained via the right femoral artery, a 4Fr sheath was inserted Left Coronary Artery selective angiography was performed in multiple views using a 4 Fr. JL5 catheter. Right Coronary Artery selective angiography was then performed in multiple vie ws using a 4 Fr. 3DRC catheter. Left Ventriculography was performed in HARRELL projection using a 4 Fr. P igtail catheter. LV to AO pullback pressures were then recorded.The images were reviewed and options discussed. A decision was then made to proceed with an Intervention, IVUS or other adjunc t procedure. Arterial sheath was exchanged for a 6 Fr Sheath. ebu 3.5 Guide catheter was inserted and engaged into the LCA. bmw Guide wire was advanced to the LAD bmw Guide wire was advanced to the 1st Diagonal. synergy 2.25 x 16 Drug Eluting stent was advanced across the lesion in the first diagonal, proximal. Angiogram performed pre stent deployment. emerge 2.00 x 8 Balloon catheter was inserted on LAD wire to mid lad PTCA balloon inflated at 6 atms for 12 secs. Angiogram performed post balloon dilatation. Contrast was injected through the sheath and the Right Iliac and Femoral artery were assessed for pos sible closure device. The arterial sheath was pulled and a Mynx closure device was deployed for hemo stasis INTERVENTION INFORMATION LESION SITE: 1st Diagonal (Proximal) Lesion Complexity: High/C, lesion at bifurcation: Yes, thrombus present: No, lesion length: 16 mm, cu lprit lesion: Yes Pre Stenosis: 75 % Pre intervention MARTÍN flow: 3 PROCEDURE: Drug Eluting Stent Post Stenosis: 0 % Post intervention MARTÍN flow: 3 Lesion Devices: Upliketronic 6 Fr EBU3.5 100cm Guide Catheter [place] .014 BMW Starbuck Straight 190cm Navid Sci Synergy MR OZIEL 2.25x16 LESION SITE: LAD (Mid) Lesion Complexity: Non-High/Non-C, lesion at bifurcation: Yes, thrombus present: No, lesion length: 8 mm, culprit lesion: No Pre Stenosis: 0 % Pre intervention MARTÍN flow: 3 PROCEDURE: Balloon Angioplasty Post Stenosis: 0 % Post intervention MARTÍN flow: 3 Lesion Devices: [place] .014 BMW Starbuck Straight 190cm Navid Sci EMERGE MR 2.00x08 BALLOON COMPLICATIONS No Complications PROCEDURE MEDICATIONS Versed 1 mg IV Oxygen: 2 L/min via nasal cannula Heparin 6000 unit(s) IV 03/08/2019 14:54:06 Nitro 200 mcg IC 03/08/2019 14:55:27 Nitro glycerin 25mg / 250ml D5W @ 5 mcg/min IV started 03/08/2019 14:57:53 Nitro 200 mcg IC 03/08/2019 15:08:02 Metoprolol 5 mg 03/08/2019 15:16:35 SUMMARY OF HEMODYNAMIC DATA Time AIR REST ECG 14:21:47 AO 137/73 (101) SA 14:35:20 LV 168/-13, 22 14:41:41 LV 159/-13, 19 14:41:48 LV 162/-12, 20 14:42:40 LV 166/-13, 21 14:42:47 LVp 164/-14, 19 14:42:54 AOp 168/75 (113) 14:42:59 Signed By Jamison Triplett MD On 03/08/2019 15:30:58 Jamison Triplett MD
[2019-03-08 15:35] LABS: ACT Activated Clotting Time 202 sec (74-137)
--- NOTE | 2019-03-08 16:12 | EKG12_ITS ---
Test Reason : CP ADMIT Blood Pressure : / mmHG Vent. Rate : 080 BPM Atrial Rate : 080 BPM P-R Int : 154 ms QRS Dur : 118 ms QT Int : 398 ms P-R-T Axes : 058 -23 029 degrees QTc Int : 459 ms Normal sinus rhythm Right bundle branch block Abnormal ECG Confirmed by CHAPITO MARCANO, SHAHZAD ([id number]), script editor JUSTYNA LYNN ([id number]) on 03/12/2019 1:21:42 PM Referred By: Alethea Hernandez Confirmed By:SHAHZAD URIARTE MD
--- NOTE | 2019-03-08 17:00 | NURSING ---
education re chronic illness deferred till acute illness improving
--- NOTE | 2019-03-08 17:15 | CL.D_ITS ---
Patient Name: HUBERT DAVIS Study Date: 03/08/2019 Performing: Jakub Bradshaw MD Ht: 61 inches 155 cm : 1935 Wt: 132.5 lbs 60 kg Age: 83 Gender: female BSA: 1.59 PROCEDURE(S) PERFORMED [id number] W OR WO PTCA, SINGLE CORONARY ARTERY [id number], EACH ADD'L CORONARY ART, SAME MAJOR CLINICAL PROFILE AND INDICATIONS Patient presents with NSTEMI for urgent cardiac cath Indications: Worsening Angina, ACS <= 24 hrs, Stable Known CAD Heart Failure: None Stress/Imaging Stress/Image Study Performed: No Stress/Image Study Performed: No Angina Classification Anginal Classification w/in 2 Weeks: CCS III CAD Presentations: Non-STEMI. Unstable angina. Non-STEMI. Symptom onset Date/Time: 03/07/2019 Time Not Available Comorbidities/Risk Factors: Hypertension Dyslipidemia Prior PCI Diabetes Mellitus: Diabetes Therapy: Diet CONCLUSIONS Elevated Left Ventricular End Diastolic Pressure Normal LV size, wall motion,and systolic function LVEF: by LV gram 60 % [place] Multivessel CAD Aortic Root Aneurysm Mitral Valve Prolapse Mild RECOMMENDATIONS Risk factor modification Medical therapy Referred for immediate PCI DESCRIPTION OF PROCEDURE The patient arrived to the procedure lab. The risks and benefits of the procedure as well as a full d escription of our services here and current unavailability of surgical backup were fully explained to the patient and/or their significant other prior to the catheterization. The Timeout was completed, verifying the correct patient and procedure. The patient's procedural site was prepped and draped in the usual fashion. Local anesthetic was given subcutaneously to right groin region with Lidocaine 2%. Using a modified Seldinger technique, arterial access was obtained via the right femoral artery, a 4 Fr sheath was inserted Left Coronary Artery selective angiography was performed in multiple views us ing a 4 Fr. JL5 catheter. Right Coronary Artery selective angiography was then performed in multiple views using a 4 Fr. 3DRC catheter. Left Ventriculography was performed in HARRELL projection using a 4 Fr . Pigtail catheter. LV to AO pullback pressures were then recorded.Contrast was injected through the sheath and the Right Iliac and Femoral artery were assessed for possible closure device.T he arterial sheath was pulled and a Mynx closure device was deployed for hemostasis CORONARY ANGIOGRAPHY DOMINANCE: Right Dominant LEFT HEART ASSESSMENT Left Ventricular Ejection Fraction: by LV Gram 60 % Normal LV wall motion Elevated Left Ventricular End Diastolic Pressure LVEDP: 19 mmHg LEFT MAIN: Angiographically normal LEFT ANTERIOR DESCENDING ARTERY: PROX LAD: Previously placed stent is patent MID LAD: Mild luminal irregularities DIAGONAL 1: Proximal - 75 % Stenosis CIRCUMFLEX ARTERY: Mild luminal irregularities RIGHT CORONARY ARTERY: Diffuse: Eccentric: 25 % Stenosis VALVE FINDINGS: Normal Aortic Valve function Mitral Valve Prolapse Mild AORTIC ROOT: Aneurysm COMPLICATIONS No Complications PROCEDURE MEDICATIONS Versed 1 mg IV Oxygen: 2 L/min via nasal cannula Heparin 6000 unit(s) IV 03/08/2019 14:54:06 Nitro 200 mcg IC 03/08/2019 14:55:27 Nitro glycerin 25mg / 250ml D5W @ 5 mcg/min IV started 03/08/2019 14:57:53 Nitro 200 mcg IC 03/08/2019 15:08:02 Metoprolol 5 mg 03/08/2019 15:16:35 SUMMARY OF HEMODYNAMIC DATA Time AIR REST ECG 14:21:47 AO 137/73 (101) SA 14:35:20 LV 168/-13, 22 14:41:41 LV 159/-13, 19 14:41:48 LV 162/-12, 20 14:42:40 LV 166/-13, 21 14:42:47 LVp 164/-14, 19 14:42:54 AOp 168/75 (113) 14:42:59 Signed By Jakub Bradshaw MD On 03/08/2019 17:15:04 Jakub Bradshaw MD
--- NOTE | 2019-03-08 17:53 | PCM.PROGNOTE ---
Patient Problems: Active and Suspected Problems (Last Reviewed 02/26/19 @ 16:47 by Tejas Kim DO) NSTEMI (non-ST elevated myocardial infarction) (Acute) CAD (coronary artery disease) (Acute) Subjective: The patient is an 83-year-old female who was discharged from [facility] on 02/27/2019 after having a cardiac catheterization and PTCA/OZIEL to the LAD. She presented to the emergency room on 03/06/2019 complaining of left-sided neck pain and shoulder pain associated with shortness of breath that increased with exertion. Troponin was elevated at 5.03 and then started to decrease. She was taken for cardiac catheterization on 03/08/2019 and this showed the previous placed stent to be patent but she had a 75% stenosis of the proximal diagonal #1. She was referred for intervention and had PTCA/OZIEL to the diagonal #1 lesion and balloon angioplasty of the mid LAD. Postprocedure she was transferred to the coronary care intensive care unit. She was seen and examined postprocedure. She denies chest pain, shortness of breath, neck pain, shoulder pain. Current blood pressure is well controlled. She is maintaining appropriate oxygen saturation on room air. She admitted that she is frequently anxious and she stated the very small dose of Xanax given to her yesterday helped her relax. She would possibly consider taking a SSRI but wants to think about it. LDL at her last visit was 127....she was taking only Coletipol for cholesterol at the time of the initial admission. She was discharged on Pravastatin and she states that she is taking this medication but, Dr. Bradshaw is under the impression that she has not been taking the Pravastatin because she was on a statin in the past and got muscle pain. She has been receiving the Pravastatin in the hospital since admission now. - Physical Exam General: Alert, Oriented x3, Cooperative, No apparent distress Oral: Moist Mucosa Neck: Supple, No JVD, No Nodes, Trachea Midline Lungs: Clear to auscultation Cardiovascular: Regular rate, Regular Rhythm, Normal S1, Normal S2, No murmurs, No rub noted, No Gallop, - - Telemetry currently shows normal sinus rhythm Abdomen: Bowel Sounds Present, Soft, Non Tender, Non-Distended Extremities: No clubbing, No cyanosis, No edema, - - Right groin site is dry with no evidence of hematoma. She has intact sensation to the right lower extremity and the right dorsalis pedis is 3/3. Skin: No rashes Neurological: Cranial nerves II-XII grossly intact, Neuro grossly intact Psych/Mental Status: Normal Affect, Appropriate Vital Signs Temp Pulse Resp BP Pulse Ox 97.9 F 96 17 128/71 H 96 03/08/19 08:22 03/08/19 11:00 03/08/19 09:55 03/08/19 09:55 03/08/19 09:55 Oxygen Delivery Method Room Air Weight: 132 lb 15.02 oz Body Mass Index (BMI) 25.1 Intake and Output for Last 24 Hours 03/06/19 03/07/19 03/08/19 23:59 23:59 23:59 Intake Total 181.2 / 181.2 699.3 / 699.3 767.9 / 767.9 Balance 181.2 / 181.2 699.3 / 699.3 767.9 / 767.9 Laboratory Tests Past 24 Hrs 03/07/19 03/08/19 03/08/19 19:17 03:49 03:49 APTT 54.1 H 91.2 H* Activated Clotting Time Sodium 136 Potassium 4.4 Chloride 101 Carbon Dioxide 29.0 Anion Gap 6 BUN 34 H Creatinine 1.42 H Estim Creat Clear Calc 23.05 Est GFR (MDRD) Af Amer 46 L Est GFR (MDRD) Non-Af 38 L BUN/Creatinine Ratio 23.9 H Glucose 97 Calcium 9.4 03/08/19 03/08/19 10:26 15:14 APTT 72.2 H Activated Clotting Time 202 H Sodium Potassium Chloride Carbon Dioxide Anion Gap BUN Creatinine Estim Creat Clear Calc Est GFR (MDRD) Af Amer Est GFR (MDRD) Non-Af BUN/Creatinine Ratio Glucose Calcium Medical Necessity - Tobacco Use Smoking Status: Never smoker Tobacco Use: Non-smoker Assessment/Plan All Active Problems (Last Reviewed 02/26/19 @ 16:47 by Tejas Kim DO) NSTEMI (non-ST elevated myocardial infarction) (Acute) CAD (coronary artery disease) (Acute) Chest pain (Acute) Elevated troponin (Acute) Unstable angina (Acute) Cataract (Resolved) Old myocardial infarction (Resolved) Troponin I above reference range (Resolved) Chest pain (Resolved) Impressions 1. NSTEMI-acute. Recent NSTEMI last week and she had a stent to the LAD 2. Coronary artery disease-status post PCI/OZIEL to LAD on 02/27/[address] Vincent, status post PTCA/OZIEL to diagonal #1 and balloon angioplasty of mid LAD stent on 03/08/[address] Triplett 3. Hypertension 4. Hyperlipidemia 5. Diastolic dysfunction 6. Nonrheumatic mitral/aortic/tricuspid valve insufficiency-mild 7. Hyponatremia 8. Dehydration per lab 9. Chronic anxiety Pt is considering whether or not she would be willing to take Sertraline to control anxiety...... BP increase into the 200 systolic range when she is anxious. Recheck the lipid panel in the AM. Her is going to bring in a list of the medications she has been taking. I reinforced with her that it is VERY important to keep the LDL 70 or less since she now has 2 stents Recheck lab in the AM Code Visit Inpatient E&M: 29881 Subs Hosp L2
[2019-03-08] MEDS: Acetaminophen 325 MG Tablet 650 MG PO (19:56)
[2019-03-08] MEDS: Carvedilol 3.125 MG TABLET PO (21:39)
[2019-03-08] MEDS: LORazepam 1 MG Tablet PO (21:39)
[2019-03-08] MEDS: Pravastatin 20 MG Tablet PO (21:39)
[2019-03-09] VITALS (17 sets, daily range): BP systolic 98–128; BP diastolic 37–77; PULSE 55–80; RESP 12–20; TEMP 36.3–36.6; O2SAT 92–100
[2019-03-09 04:04] LABS: Hematocrit 36.1 % (37-47); Mean Corp Hgb Conc 33.2 g/gl (32-36); Mean Corpuscular Volume 87.2 fL (81-99); Mean Platelet Vol. 9.2 fl (6.2-12.0); Platelet Count 204 K/mm3 (150-450); RBC Distribution Width CV 13.4 % (11.6-14.6); RBC Distribution Width SD 41.2 fl (35.1-43.9); Red Blood Count 4.14 M/mm3 (4.2-5.4); White Blood Count 5.3 K/mm3 (4.4-11.0)
[2019-03-09 04:12] LABS: Scan Indicated on CBC? Y/N NO
[2019-03-09 04:21] LABS: AST(SGOT) 14 U/L (15-37); Alanine Aminotransfer ALT/SGPT 17 U/L (13-56); Albumin, Serum 3.1 g/dL (3.2-5.0); Alkaline Phosphatase 56 U/L (45-117); Anion Gap 6 (5-15); BUN 22 mg/dL (7-18); BUN/Creat Ratio 22.5 RATIO (10-20); Calcium,Total 8.6 mg/dL (8.5-10.1); Chloride 108 mmol/L (98-107); Creatinine, Serum 0.98 mg/dL (0.55-1.02); EST Glomerular Filtration Rate 58 mL/min (>60); Est Glom Filt Rate - Afr Amer 70 mL/min (>60); Globulin 3.2 g/dL (2.2-4.2); Glucose 87 mg/dL (74-106); Potassium 4.4 mmol/L (3.5-5.1); Protein, Total 6.3 g/dL (6.4-8.2); Sodium Level 140 mmol/L (136-145)
[2019-03-09] MEDS: Levothyroxine 25 MCG TABLET PO (05:50)
--- NOTE | 2019-03-09 08:47 | CRPHASE1_ITS ---
Patient Communication Former Patient:: Phase I - Pt was recently seen. Already scheduled for PH II intake 03/17/19. PHII Cardiac Rehab Discussed with Patient:: Yes Guide to Cardiac Rehab Given to Patient:: Yes Cardiac Rehab Facility Choice List Given to Patient:: Yes - chooses [facility] Choice Program [facility] CR PHII:: Communication Given to CR, Refer to [facility] Refer Phase II Cardiac Rehab:: Yes Sessions:: 36 sessions - 3 days/wk, 12 weeks Risk Factors/Lifestyle Family History: Family History (Last Reviewed 02/26/19 @ 16:47 by Tejas Kim DO) Father CAD (coronary artery disease) Myocardial infarction Mother CVA (cerebral vascular accident) Brother Aneurysm Brother Heart disease Sister Afib Parkinson's disease Cardiac Rehabilitation Info Cardiac Rehabilitation Program Information: Cardiac Rehabilitation is important for patients like you who are recovering from a heart problem. Cardiac rehabilitation programs are recognized as integral to the continued care of the patient with coronary heart disease. The cardiac rehabilitation program is designed to optimize a patient's physical, psychological, and social functioning. Health personal care service provider work in cardiac rehabilitation programs and assist you with getting the treatments you need to get stronger and healthier - like exercise, healthy eating habits, and medications. Cardiac rehabilitation has been show to help people with heart problems live longer and have better life enjoyment than people who do not go to cardiac rehabilitation. Please contact the Cardiac Rehabilitation Program at [facility] at in two weeks if you have not heard from them.
[2019-03-09] MEDS: TICAGRELOR 90 MG TABLET PO (08:48)
[2019-03-09] MEDS: Aspirin 81 MG TAB.CHEW PO (08:48)
[2019-03-09] MEDS: Cyanocobalamin 500 MCG Tablet 1000 MCG PO (08:48)
[2019-03-09] MEDS: Ascorbic Acid 500 MG Tablet PO (08:48)
[2019-03-09] MEDS: Carvedilol 3.125 MG TABLET PO (08:49)
[2019-03-09] MEDS: Losartan Potassium 25 MG Tablet PO (08:49)
[2019-03-09] MEDS: Calcium Carbonate 500 MG Tablet PO (08:49)
--- NOTE | 2019-03-09 08:49 | CRPH1.INSTRU ---
General Education CAD and cardiac anatomy and function:: Patient communicates acknowledgment Explanation of diagnoses and procedures:: Patient communicates acknowledgment Sign/Symptoms of [place]:: Patient communicates acknowledgment Antiplatelet therapy: Patient communicates acknowledgment Proper use of NTG-SL: Not instructed Emergency procedures and activation of EMS: Patient communicates acknowledgment Compliance of all prescribed medications: Patient communicates acknowledgment - Pt seen recently. Pt is scheduled for PH II intake 03/17/2019
--- NOTE | 2019-03-09 10:10 | CASEMGMT ---
HARMEET CM Assessment Presentation: NSTEMI, PTCA Diag, Angioplasty mid LAD PCP: Dr. Boyd Specialists: Dr. Bradshaw [facility] Insurance: [facility] Prescription Benefit: yes. Pt to dc on Brillinta, has been on this medication prior to admission LNOK: Bipin Dyson Living Arrangements: Lives independently with her Transportation: drives or family drives Patient DC goals: Home DC PLAN: Home today. Rajat RAVI RN ACM
--- NOTE | 2019-03-09 10:26 | PCM.PN.CARD ---
Subjectve: The patient is awake and alert. She is without recurrent symptoms. Objective: Vital Signs Temp Pulse Resp BP Pulse Ox 97.8 F 78 20 H 122/61 H 99 03/09/19 04:00 03/09/19 09:00 03/09/19 09:00 03/09/19 09:00 03/09/19 09:00 Oxygen Delivery Method Room Air Weight: 132 lb 15.02 oz Body Mass Index (BMI) 25.1 Intake and Output for Last 24 Hours 03/07/19 03/08/19 03/09/19 23:59 23:59 23:59 Intake Total 699.3 / 699.3 2142.9 / 2142.9 60 / 60 Output Total 700 / 900 500 / 500 Balance 699.3 / 699.3 1442.9 / 1242.9 -440 / -440 General: Awake, Alert, Oriented x 3, Cooperative, No Acute Distress HEENT: Atraumatic, Normocephalic, PERRL, EOMI, Sclera Non Icteric Oral: Moist Mucosa Neck: Supple, Good ROM, No JVD Lungs: Clear to auscultation Cardiovascular: Regular Rhythm, Normal S1, Normal S2 Vascular: Normal Femoral Pulses Abdomen: Bowel Sounds Present, Soft, Non Tender Extremities: No edema Neurological: No Focal Motor or Sensory Deficit Psych/Mental Status: Appropriate 03/08/19 10:26: APTT 72.2 H 03/09/19 03:57: Sodium 140, Potassium 4.4, Chloride 108 H, Carbon Dioxide 26.0, Anion Gap 6, BUN 22 H, Creatinine 0.98, Est GFR (MDRD) Af Amer 70, Est GFR (MDRD) Non-Af 58 L, BUN/Creatinine Ratio 22.5 H, Glucose 87, Calcium 8.6, Total Bilirubin 0.30 03/09/19 03:57: WBC 5.3, RBC 4.14 L, Hgb 12.0, Hct 36.1 L, MCV 87.2, MCH 29.0, MCHC 33.2, RDW 13.4, RDW Differential 41.2, Plt Count 204, MPV 9.2 Rhythm: Sinus rhythm; PVCs EKG: This rhythm; right bundle branch block pattern Medical Necessity - Tobacco Use Smoking Status: Never smoker Tobacco Use: Non-smoker Assessment/Plan 1. Non-ST segment elevation MA The patient is status post diagnostic cardiac catheterization. Her LAD PCI site remained patent. There was concern about a diagonal branch near the LAD PCI site with proximal stenosis. It appeared to have progressed since her most recent diagnostic cardiac catheterization. She subsequently underwent diagonal branch PCI with good angiographic result. During the procedure she had symptoms similar to what she originally complained of. At the present time she appears to be doing well with no recurrent symptoms. She appears to be hemodynamically stable. 2. CAD status post LAD PCI The patient was recently diagnosed with progressive CAD in the proximal LAD distribution. She underwent further evaluation with intravascular ultrasound which confirmed significant LAD disease. She subsequently underwent LAD PCI/OZIEL with what appeared to be good angiographic results. Her overall left ventricular wall motion systolic function appeared to be preserved based upon her diagnostic studies performed. She has been on medical management since that time. He has undergone further evaluation and care as noted above. At the present time she appears in no acute distress. 3. Valvular heart disease The patient does have valvular heart disease as previously noted. She appears to have no significant change with her underlying valvular heart disease compared to her most recent transthoracic echocardiogram. 4. Hyperlipidemia The patient has been intolerant to atorvastatin in the past. She is agreeable to attempting an alternative statin such as pravastatin therapy. 5. Hypertension The patient states she has been monitoring her blood pressure at home. She notes that has been up and down. She states when she becomes anxious her blood pressure significantly increases. She will need her blood pressure monitored. She will need to continue medical management. Overall, from a cardiovascular standpoint, the patient appears to be symptomatically improved and hemodynamically stable. It was felt the patient could be released home for continued outpatient cardiovascular follow-up and outpatient cardiac rehabilitation therapy. Comment: The patient's case was discussed reviewed with the patient. This note was generated with [employer] dictation software. It may contain incorrect words, spelling, and punctuation that were not noted in checking the note before signing.
--- NOTE | 2019-03-09 12:12 | DCINST_ITS ---
- Discharge Diagnoses Current Active Problems: Current Active and Chronic Problems (Last Reviewed 02/26/19 @ 16:47 by Tejas Kim DO) NSTEMI (non-ST elevated myocardial infarction) (Acute) CAD (coronary artery disease) (Acute) Valvular heart disease (Chronic) You will use the following diet at home:: Cardiac Your food should be the consistency of: Regular Call your doctor if you observe: Fever of 101 or Higher, Shortness of breath, Chest pain Allergies/Adverse Reactions: Allergies latex Allergy (Mild, Verified 03/06/19 15:53) Rash Penicillins [PCN] Allergy (Verified 03/06/19 15:53) Unknown Nynxvzx-Abr-Gwb Reductase Inhibitor Allergy (Verified 03/06/19 15:53) All blood cells low Medications to take at Discharge Aspirin [Aspirin, Baby] 81 mg PO DAILY@0800 12/13/15 Calcium Carbonate [Calcium] 1,200 mg PO DAILY 12/13/15 Cholecalciferol (VIT D3) [Vitamin D3] 1,000 unit PO DAILY 12/13/15 Fish Oil/Om-3/E/Folic/B6-B12 [Cardiovid Plus Softgel] 1 capsule PO QODAY 12/13/15 Levothyroxine [Synthroid] 25 mcg PO MOTUWETHFR 12/13/15 ascorbic acid (vitamin C) 500 mg tablet 500 mg PO QODAY tab 06/17/18 colestipol 1 gram tablet 2 gm PO BID tab 12/10/18 Cyanocobalamin (Vitamin B-12) [Vitamin B-12] 1,000 mcg PO QODAY 02/26/19 Vitamin B Complex [B Complex] 1 tab PO QODAY 02/26/19 Levothyroxine [Synthroid] 50 mcg PO 03/06/19 Losartan Potassium 25 mg PO DAILY 03/06/19 Pravastatin [Pravachol] 20 mg PO QHS 03/06/19 Ticagrelor [Brilinta] 90 mg PO BID 03/06/19 Polyethylene Glycol 3350 [Miralax] 17 gm PO DAILY PRN 03/07/19 Carvedilol [Coreg (Beta Chaya)] 3.125 mg PO BID #60 tab 03/09/19 The following prescriptions were given: Carvedilol [Coreg (Beta Chaya)] 3.125 mg PO BID #60 tab Transmission Status: Pending to [id number] Primary Care Physician: Dori Boyd DO [Primary Care Provider] - Within 1 Week Test Results: Test results from this visit will be discussed in further detail at your follow- up appointment, if applicable. Please Follow Up With: Galen Morales NP-C When: 03/25/19 Proposed Discharge Date: 03/09/19
--- NOTE | 2019-03-09 12:13 | DS.PCM_ITS ---
Discharge Date and Diagnosis - Problem List Patient Problems: Active and Suspected Problems (Last Reviewed 02/26/19 @ 16:47 by Tejas Kim DO) NSTEMI (non-ST elevated myocardial infarction) (Acute) CAD (coronary artery disease) (Acute) Date of Admission: 03/06/19 Date of Discharge: 03/09/19 - Primary Discharge Diagnosis Active and Suspected Problems (Last Reviewed 02/26/19 @ 16:47 by Tejas Kim DO) NSTEMI (non-ST elevated myocardial infarction) (Acute) CAD (coronary artery disease) (Acute) - Secondary Discharge Diagnosis Chronic Problems (Last Reviewed 02/26/19 @ 16:47 by Tejas Kim DO) Valvular heart disease (Chronic) S/P coronary artery stent placement (Chronic ~03/08/19) IVUS guided PCI/OZIEL to prox LAD 02/27/19; PTCA/OZIEL to prox Diag #1 and PCI/OZIEL to Mid LAD at bifurcation of diag to ensure no struts from diag stent protruded into LAD 03/08/19 Essential (primary) hypertension (Chronic) Pure hypercholesterolemia (Chronic) Atherosclerosis of [place] coronary artery of [place] heart without angina pectoris (Chronic) Non-rheumatic tricuspid valve insufficiency (Chronic) Diastolic dysfunction (Chronic) Hx of congestive heart failure (Chronic) Nonrheumatic mitral valve insufficiency (Chronic) Nonrheumatic aortic valve insufficiency (Chronic) Nonrheumatic mitral valve prolapse (Chronic) CHF (congestive heart failure) (Chronic) Hospital Course and Treatment Imaging Results: Clinical Impression(s) from Imaging Studies Chest X-Ray 03/06/19 16:15 IMPRESSION: No acute process Electronically Signed: Eddie Ragland, at 16:47 EDT Tel , Service support , Chest CTA 03/06/19 16:54 IMPRESSION: Normal CTA chest examination, without a demonstrated pulmonary embolism or arterial dissection. mild aneurysmal dilatation of the ascending thoracic aorta which measures 3.5 cm AP by 3.3 cm mediolateral diameter. There is calcific coronary atherosclerosis. There is a coronary stent within the LAD.. There are scattered groundglass pulmonary opacities, limited exam due to motion artifact, scattered areas of subsegmental atelectasis. These findings are infectious/inflammatory and/or pulmonary venous congestion Multilevel spondylosis thoracic and lumbar spine Mild biapical pulmonary scarring and pleural calcifications Stable 5 mm left upper lobe pulmonary nodule Stable pectus deformity of the chest Wall thickening of the stomach likely due to incomplete distention Electronically Signed: Eddie Ragland, at 17:54 EDT Tel , Service support , Jamison Triplett MD: cardiology Operations: None Procedures: Cardiac catheterization Summary of Care Provided: The patient is a 83 year old F who was just discharged with unstable angina non- STEMI on 01 March. At that time, patient had a 75% stenosis of the LAD and received a PCI. On March 06, patient was having left neck and shoulder pain. Higher troponin elevations and she did previously. This time, her troponins peaked at 5.03 and then trended down. Patient underwent a cardiac catheterization on the and I received a drug-eluting stent to the diagonal artery. Patient has a history of orthostatic hypotension but was started on low-dose of carvedilol and has done well. Patient did have some transient low blood pressure when she stood up but subsequent blood pressures upon standing were unremarkable. But given the patient's orthostatic hypotension she is not a candidate for VAIBHAV inhibitors nor angiotensin receptor blockers. Patient also has intolerance to statins and is on Pravachol which she has been on previously and tolerates that low-dose of that. That is why patient is not on a high intensity statin. Patient is otherwise doing well and was discharged home in stable condition. Case discussed with her at bedside today. [] Patient Problems: Active and Suspected Problems (Last Reviewed 02/26/19 @ 16:47 by Tejas Kim DO) NSTEMI (non-ST elevated myocardial infarction) (Acute) CAD (coronary artery disease) (Acute) - Physical Exam General: Alert, No apparent distress HEENT: Atraumatic, Normocephalic Oral: Moist Mucosa, No Gingival or Mucosal Lesions/ Ulcerations Skin: No rashes, No breakdown Psych/Mental Status: Normal Affect, Appropriate Vital Signs Temp Pulse Resp BP Pulse Ox 36.5 C L 78 20 H 102/45 L 99 03/09/19 10:00 03/09/19 11:21 03/09/19 11:21 03/09/19 11:22 03/09/19 11:21 Oxygen Delivery Method Room Air Weight: 60.3 kg Body Mass Index (BMI) 25.1 Intake and Output for Last 24 Hours 03/07/19 03/08/19 03/09/19 23:59 23:59 23:59 Intake Total 699.3 / 699.3 2142.9 / 2142.9 60 / 60 Output Total 700 / 900 500 / 500 Balance 699.3 / 699.3 1442.9 / 1242.9 -440 / -440 Laboratory Tests Past 24 Hrs 03/08/19 03/09/19 03/09/19 15:14 03:57 03:57 WBC 5.3 RBC 4.14 L Hgb 12.0 Hct 36.1 L MCV 87.2 MCH 29.0 MCHC 33.2 RDW 13.4 RDW Differential 41.2 Plt Count 204 MPV 9.2 Activated Clotting Time 202 H Sodium 140 Potassium 4.4 Chloride 108 H Carbon Dioxide 26.0 Anion Gap 6 BUN 22 H Creatinine 0.98 Estim Creat Clear Calc 33.40 Est GFR (MDRD) Af Amer 70 Est GFR (MDRD) Non-Af 58 L BUN/Creatinine Ratio 22.5 H Glucose 87 Calcium 8.6 Total Bilirubin 0.30 AST 14 L ALT 17 Alkaline Phosphatase 56 Total Protein 6.3 L Albumin 3.1 L Globulin 3.2 Albumin/Globulin Ratio 1.0 Discharge Diet: Low fat/ Low Cholesterol Call your doctor if you observe: Fever of 101 or Higher, Shortness of breath, Chest pain Home Medications: Medications to take at Discharge Aspirin [Aspirin, Baby] 81 mg PO DAILY@0800 12/13/15 Calcium Carbonate [Calcium] 1,200 mg PO DAILY 12/13/15 Cholecalciferol (VIT D3) [Vitamin D3] 1,000 unit PO DAILY 12/13/15 Fish Oil/Om-3/E/Folic/B6-B12 [Cardiovid Plus Softgel] 1 capsule PO QODAY 12/13/15 Levothyroxine [Synthroid] 25 mcg PO MOTUWETHFR 12/13/15 ascorbic acid (vitamin C) 500 mg tablet 500 mg PO QODAY tab 06/17/18 colestipol 1 gram tablet 2 gm PO BID tab 12/10/18 Cyanocobalamin (Vitamin B-12) [Vitamin B-12] 1,000 mcg PO QODAY 02/26/19 Vitamin B Complex [B Complex] 1 tab PO QODAY 02/26/19 Levothyroxine [Synthroid] 50 mcg PO 03/06/19 Losartan Potassium 25 mg PO DAILY 03/06/19 Pravastatin [Pravachol] 20 mg PO QHS 03/06/19 Ticagrelor [Brilinta] 90 mg PO BID 03/06/19 Polyethylene Glycol 3350 [Miralax] 17 gm PO DAILY PRN 03/07/19 Carvedilol [Coreg (Beta Chaya)] 3.125 mg PO BID #60 tab 03/09/19 Following Prescrptions Were Given to Patient: Carvedilol [Coreg (Beta Chaya)] 3.125 mg PO BID #60 tab Transmission Status: [id number] Primary Care Physician: Dori Boyd DO [Primary Care Provider] - Within 1 Week Please Follow Up With: Galen Morales, PATHOLOGY TEACHER-C When: 03/25/19 Disposition: Home Minutes spent on discharge:: 32 Patient Condition:: Good Medical Necessity - Tobacco Use Smoking Status: Never smoker Tobacco Use: Non-smoker Meaningful Use Info Meaningful Use Diagnoses (Choose all that apply): AMI - AMI Aspirin given w/in 24hrs of arrival?: Yes ASA at discharge?: Yes Statins at discharge?: Yes Vaibhav/ARB at discharge?: No Reason Vaibhav/ARB not ordered:: Hypotension Beta Chaya at discharge?: Yes Done w/ Acute SC measure.: Yes Documented LVEF (%): 55
--- NOTE | 2019-03-09 16:12 | EKG12_ITS ---
Test Reason : POST PCI Blood Pressure : / mmHG Vent. Rate : 075 BPM Atrial Rate : 075 BPM P-R Int : 174 ms QRS Dur : 114 ms QT Int : 382 ms P-R-T Axes : 071 -14 049 degrees QTc Int : 426 ms Normal sinus rhythm with sinus arrhythmia Right bundle branch block Abnormal ECG When compared with ECG of 08-MAR-2019 09:58, MANUAL COMPARISON REQUIRED, DATA IS UNCONFIRMED Confirmed by SUN MARCANO, LORRIE ([id number]), video tape editor JEFFREY RODRIGUEZ ([id number]) on 03/10/2019 2:12:52 PM Referred By: Alethea Hernandez Confirmed By:LORRIE GARSIA MD
--- NOTE | 2019-03-10 15:19 | CASEMGMT ---
HARMEET CM DC PHONE CALL DC DATE: 03/09/19 DC Disposition: Home Diagnosis on Discharge: NSTEMI LACE/STRATA: 07/05 Attempted call to patient's home. No answer. Rajat RAVI RN [facility]
== END 2019-03-09 13:15 | disposition home or self-care (01) | DRG 247 ==
LOC: ED 16:23 → PCU 18:59 → ICU 03-08 15:45
PROVIDERS: Internal Medicine Cardiovascular Disease; Admitting Provider Student in an Organized Health Care Education/Training Program; Emergency Provider Emergency Medicine; Family Provider Internal Medicine; PCP Internal Medicine; Referring Provider Internal Medicine
DX: I21.3 ST elevation (STEMI) myocardial infarction of unspecified site (principal); E87.1 Hypo-osmolality and hyponatremia; I50.32 Chronic diastolic (congestive) heart failure; I11.0 Hypertensive heart disease with heart failure; E03.9 Hypothyroidism, unspecified; I25.10 Atherosclerotic heart disease of native coronary artery without angina pectoris; I34.0 Nonrheumatic mitral (valve) insufficiency; I35.1 Nonrheumatic aortic (valve) insufficiency; I36.1 Nonrheumatic tricuspid (valve) insufficiency; E86.0 Dehydration; Z95.5 Presence of coronary angioplasty implant and graft; E78.00 Pure hypercholesterolemia, unspecified
CPT/HCPCS: 36415; 71045; 71275; 80048; 80053; 84484; 85025; 85027; 85347; 85610; 85730; 92921; 92928; 93005; 93306; 93458; 99152; 99153; 99285; J7030; Q9967; A4216; C1725; C1769; C1874; C1887; C1894; C9600

== ENCOUNTER 2019-03-10 18:28 | Observation (INO) | payer MEDICARE, SELFPAY ==
[2019-02-27 14:50] VITALS: BMI 22.1
[2019-03-06 19:35] VITALS: BMI 25.1
[2019-03-10] VITALS (8 sets, daily range): BP systolic 139–159; BP diastolic 71–84; PULSE 76–106; RESP 12–21; TEMP 36.7–37.1; O2SAT 94–100; BMI 26.0; BMI 25.0
--- NOTE | 2019-03-10 18:57 | EKG12_ITS ---
Test Reason : CP Blood Pressure : / mmHG Vent. Rate : 079 BPM Atrial Rate : 079 BPM P-R Int : 154 ms QRS Dur : 114 ms QT Int : 388 ms P-R-T Axes : 069 -05 028 degrees QTc Int : 444 ms Poor data quality, interpretation may be adversely affected Normal sinus rhythm with sinus arrhythmia Right bundle branch block Abnormal ECG Confirmed by FAHAD CABRAL ([id number]), graphic editor JEFFREY RODRIGUEZ ([id number]) on 03/12/2019 1:40:40 PM Referred By: ANTHONY Confirmed By:FAHAD CABRAL
--- NOTE | 2019-03-10 19:02 | RAD_ITS ---
STUDY: X-RAY CHEST REASON FOR EXAM: Female, 83 years old. Chest pain TECHNIQUE: Frontal view of the chest COMPARISON: X-ray chest March 06, 2019 FINDINGS: The lungs are clear. There are no pleural effusions. There is no pneumothorax. The heart is normal in size. The visualized osseous structures are within normal limits. RAD/Chest 1 View (Portable) IMPRESSION: No acute thoracic pathology. Electronically Signed: Nathaniel Webster, at 19:25 EDT Tel , Service support ,
[2019-03-10 19:07] LABS: Absolute Neutrophil Count 4.4 X10^3/uL (2.0-7.7); Basophil# 0.01 X10^3/uL; Basophil% 0.1 % (0-1); Eosinophil# 0.35 X10^3/uL; Eosinophils% 5.2 % (0-5); Hematocrit 35.9 % (37-47); Lymphocyte % 14.9 % (19-41); Mean Corp Hgb Conc 33.4 g/gl (32-36); Mean Corpuscular Hgb 29.1 pg (27.0-32.0); Mean Corpuscular Volume 87.1 fL (81-99); Mean Platelet Vol. 8.9 fl (6.2-12.0); Monocyte# 0.93 X10^3/uL; Monocyte% 13.9 % (0-10); Neutrophil % 65.8 % (47-70); POSITIVE COUNT NO; POSITIVE DIFFERENTIAL NO; POSITIVE MORPHOLOGY NO; Platelet Count 198 K/mm3 (150-450); RBC Distribution Width CV 13.6 % (11.6-14.6); RBC Distribution Width SD 43.6 fl (35.1-43.9); Red Blood Count 4.12 M/mm3 (4.2-5.4); White Blood Count 6.7 K/mm3 (4.4-11.0)
[2019-03-10] MEDS: Aspirin 81 MG TAB.CHEW 324 MG PO (19:13)
--- NOTE | 2019-03-10 19:15 | ED.DCSUM_ITS ---
- ER Visit Summary Date of Service: 03/10/19 Chief Complaint: Chest pain History of Present Illness: The patient is a 83 F presenting with chest pain. Patient states this started around 545 PM. She states it lasted between 15 and 30 minutes. Pain started in the epigastric region and radiated to her chest. She states it was 8 out of 10. Currently 0 out of 10. She has had 2 recent heart catheterizations and was discharged from the hospital yesterday. She had one stent during each heart cath. She denies diaphoresis or shortness of breath. Denies other complaints. She has been taking Brilinta as directed. Physical Examination: Vitals are stable. Patient is afebrile. Alert no acute distress. HEENT exam is unremarkable. Neck is supple. Lungs are clear and equal bilaterally. Heart is regular rate and rhythm. Abdomen is soft mild epigastric tenderness. No guarding or rebound. Right groin no tenderness. NVID. Extremities are unremarkable. Skin is warm and dry. No focal neurologic deficit. Remainder of exam is unremarkable. Emergency Department Course and Treatment: Patient was given aspirin. EKG is sinus rate of 79 unchanged from previous. CBC, chemistries unremarkable other than creatinine 1.09. Urinalysis shows 5-10 white blood cells, 0-5 red blood cells. Troponin 2.11, previous 4.74. Lipase 582. Patient was given Zofran IV. Chest x-ray shows no acute process. Ultrasound gallbladder shows no acute process. CT chest abdomen pelvis show no acute process. Patient had another episode of nausea and back pain in the ED. Discussed with the hospitalist for observation. Disposition: Observation Impression: Chest pain, recent nstemi; Elevated lipase This note was generated with [employer] dictation software. It may contain incorrect words, spelling, and punctuation that were not noted in review of the chart prior to signing ED Disposition - Plan for ED Patient: Referrals: Dori Boyd DO [Primary Care Provider] -
[2019-03-10 19:22] LABS: Anion Gap 7 (5-15); BUN 22 mg/dL (7-18); BUN/Creat Ratio 20.2 RATIO (10-20); Calcium,Total 9.2 mg/dL (8.5-10.1); Chloride 102 mmol/L (98-107); Creatinine, Serum 1.09 mg/dL (0.55-1.02); EST Glomerular Filtration Rate 51 mL/min (>60); Est Glom Filt Rate - Afr Amer 62 mL/min (>60); Estimated Creatinine Clearance 30.03 ml/min; Glucose 99 mg/dL (74-106); Potassium 4.5 mmol/L (3.5-5.1); Sodium Level 135 mmol/L (136-145)
--- NOTE | 2019-03-10 19:23 | ED.RN ---
lab called with critical lab results. troponin level 2.11. Dr. Mary made aware. no new orders at this time
[2019-03-10 19:24] LABS: Lipase 582 U/L (73-393)
[2019-03-10 19:56] LABS: Bacteria 0 SEEN /hpf (None Seen); Mucous, Urine 0 SEEN /hpf (<or=2+)
[2019-03-10 19:58] LABS: Color, Urine Yellow (Yellow); Glucose, Dipstick Normal (Normal); Ketone-Dipstick Negative (Negative); Leukocyte Esterase-Dipstick 100 /ul (Negative); Nitrite-Dipstick Negative (Negative); Occult Blood-Urine 10 /ul (Negative); Protein-Dipstick Negative (Negative); Urine Bilirubin Dipstick Negative (Negative); Urine Clarity Clear (Clear); Urine Urobilinogen Normal (Normal)
[2019-03-10 20:05] LABS: Red Blood Cells-Urine 0-5 SEEN /hpf (0-5); Squamous Epithelial Cells - UA 0-5 SEEN /hpf (5-10); White Blood Cells 5-10 SEEN /hpf (0-5)
--- NOTE | 2019-03-10 20:27 | CT_ITS ---
STUDY: CTA CHEST REASON FOR EXAM: Female, 83 years old. Pain RADIATION DOSAGE (If Supplied By Facility): CTDIvol = ( 7.97 ) mGy, DLP = ( 716.96 ) mGycm TECHNIQUE: The examination was performed with the intravenous administration of 100 IV Isovue 370. Post-processing of the angiographic images was performed, with multiplanar reformation and 3D reconstruction. Individualized dose optimization techniques were used for this CT. COMPARISON: CT chest March 06, 2019 FINDINGS: Normal enhancement of the main pulmonary artery and right and left pulmonary arteries. Normal enhancement of the bilateral peripheral pulmonary arteries. There is no demonstrated pulmonary embolism. Normal thoracic aorta and visualized great vessels. There is no demonstrated aortic dissection. Normal heart and pericardium. Normal mediastinum. Normal hilar regions. Normal visualized trachea and bronchi. The lungs are well expanded. There is a stable left upper lobe 5 mm nodule. There is no consolidation. Normal pleura. Normal chest wall structures. Normal osseous structures. Mild multilevel osteoarthrosis is present. Normal visualized upper abdomen. CT/CTA Chest W/WO Contrast IMPRESSION: No evidence of pulmonary and wasn't. Stable left upper lobe 5 mm nodule. Electronically Signed: Nathaniel Webster, at 21:20 EDT Tel , Service support ,
--- NOTE | 2019-03-10 20:27 | CT_ITS ---
STUDY: CT ABDOMEN AND PELVIS WITH CONTRAST REASON FOR EXAM: Female, 83 years old. Pain RADIATION DOSAGE (If Supplied By Facility): DLP = ( 716.96 ) mGycm TECHNIQUE: Transaxial images were obtained from the dome of the diaphragm to the symphysis pubis without oral contrast. 100 ml of Isovue 370 contrast was administered. Sagittal and coronal images were reconstructed. Individualized dose optimization techniques were used for this CT. COMPARISON: CT abdomen and pelvis May 23, 2018 FINDINGS: The visualized lung bases are clear. The visualized portions of the heart and pericardium are within normal limits. There are no calcified gallstones present. The liver is within normal limits. There are no suspicious hepatic lesions. The spleen is normal in size. The pancreas is within normal limits. The right adrenal gland is not seen. The left adrenal gland is unremarkable in appearance. There are no obstructing renal stones. There is no hydronephrosis. Bilateral renal cysts are present, the largest on the left measuring 3.4 cm. Normal visualized stomach. There is no bowel obstruction or inflammation. The aorta is normal in caliber. There is no abdominal or pelvic free air, free fluid, fluid collection or lymphadenopathy. There are no destructive osseous lesions. Moderate multilevel degenerative changes are present in the lumbar spine and visualized thoracic spine. Moderate degenerative changes are present at the bilateral hip joints. CT/Abdomen/Pelvis W IV Cont ONLY IMPRESSION: No acute abdominal or pelvic pathology. Nonacute findings as above. Electronically Signed: Nathaniel Webster, at 21:27 EDT Tel , Service support ,
--- NOTE | 2019-03-10 20:28 | US_ITS ---
STUDY: ABDOMINAL ULTRASOUND - RIGHT UPPER QUADRANT REASON FOR VISIT: Female, 83 years old. Abdominal pain TECHNIQUE: Ultrasound evaluation of the right upper quadrant was performed with real-time and static bronson-scale imaging. TECHNICAL QUALITY: Adequate. COMPARISON: March 20, 2017 FINDINGS: Liver: The liver measures 13.9 cm. There is normal echogenicity of the liver. The bile ducts are within normal limits. There is hepatic color flow. The direction of portal flow is hepatopetal. There is no demonstrated mass lesion. Gallbladder: Normal distended gallbladder. The gallbladder wall measures 2 mm. There is a negative sonographic Ontiveros's sign. There is no pericholecystic fluid. There are no gallstones. Common Bile Duct (C.B.D.): The common bile duct measures 5 mm. Pancreas: Normal size of the head, body and tail of the pancreas. There is normal echogenicity of the pancreas. There is no demonstrated pancreatic mass or cyst. Right Kidney: Normal size of the right kidney. The right kidney measures 10 point 4 x 4 by 3.4 cm. Normal renal cortex. The right cortex measures 1.2 cm. There are 2 cysts the larger measuring 1.5 x 1.2 x 1.3 cm There is no right hydronephrosis. increased cortical echoes prominence of the renal pyramids which may be consistent with nonspecific renal parenchymal disease No significant changes since prior exam US/Gallbladder IMPRESSION: No acute abnormalities Small right renal cyst. Electronically Signed: Nathaniel Vigil MD at 21:29 EDT , Service support ,
--- NOTE | 2019-03-10 22:30 | PCM.HP.STD ---
Problem List (1) NSTEMI (non-ST elevated myocardial infarction) Status: Acute (2) CAD (coronary artery disease) Status: Chronic Qualifiers: Coronary Disease-Associated Artery/Lesion type: [place] artery [place] vs. transplanted heart: [place] heart Associated angina: with unstable angina Qualified Code(s): I25.110 - Atherosclerotic heart disease of [place] coronary artery with unstable angina pectoris (3) S/P coronary artery stent placement Status: Chronic Comment: IVUS guided PCI/OZIEL to prox LAD 02/27/19; PTCA/OZIEL to prox Diag #1 and PCI/OZIEL to Mid LAD at bifurcation of diag to ensure no struts from diag stent protruded into LAD 03/08/19 (4) Essential (primary) hypertension Status: Chronic (5) Pure hypercholesterolemia Status: Chronic (6) Atherosclerosis of [place] coronary artery of [place] heart without angina pectoris Status: Chronic (7) Diastolic dysfunction Status: Chronic History of Present Illness Date of Admission: 03/10/19 Chief Complaint: Chest pain - 1 day The patient is a 83 year old F with recent CAD status post stents done on 03/01/19 with OZIEL to proximal LAD, 2 stents placed on 03/08/19 with OZIEL to mid LAD and proximal diagonal 1. Patient was discharged on 03/09/19. She comes in with complaints of right lower quadrant pain that is described as dull that radiates to the epigastric region and finally to a low back. Pain persisted for more than half an hour. It started around 5:45 PM. It was not associated with diaphoresis or nausea. At the point in time pain radiated to her jaws lasted for a few minutes and went away. Denies any palpitations, chest discomfort. She admits to some lightheadedness. No diarrhea or nausea or vomiting. Vitals in the ED showed blood pressure 159 /79, heart rate 76, respiratory rate 19, SPO2 is 97% on room air, temperature was 98.2F Labs showed WBC count of 6.7, hemoglobin 12.0, platelet count 198, sodium 135, potassium 4.5, chloride 102, bicarbonate 26, BUN 22, creatinine 1.09, troponin 2.110, lipase 582. Chest x-ray is unremarkable. CT scan of the abdomen and pelvis shows normal looking pancreas, no other pathology. CTA of the chest is negative for PE. Ultrasound the gallbladder is negative for gallstones. Past Medical History Past Medical History (Chronic Problems): Chronic Problems (Last Reviewed 02/26/19 @ 16:47 by Tejas Kim DO) CAD (coronary artery disease) (Chronic) Valvular heart disease (Chronic) S/P coronary artery stent placement (Chronic ~03/08/19) IVUS guided PCI/OZIEL to prox LAD 02/27/19; PTCA/OZIEL to prox Diag #1 and PCI/OZIEL to Mid LAD at bifurcation of diag to ensure no struts from diag stent protruded into LAD 03/08/19 Essential (primary) hypertension (Chronic) Pure hypercholesterolemia (Chronic) Atherosclerosis of [place] coronary artery of [place] heart without angina pectoris (Chronic) Non-rheumatic tricuspid valve insufficiency (Chronic) Diastolic dysfunction (Chronic) Hx of congestive heart failure (Chronic) Nonrheumatic mitral valve insufficiency (Chronic) Nonrheumatic aortic valve insufficiency (Chronic) Nonrheumatic mitral valve prolapse (Chronic) CHF (congestive heart failure) (Chronic) Medical History: Medical History (Last Reviewed 02/26/19 @ 16:47 by Tejas Kim DO) Essential (primary) hypertension (Chronic) I10 Pure hypercholesterolemia (Chronic) E78.00 Atherosclerosis of [place] coronary artery of [place] heart without angina pectoris (Chronic) I25.10 Non-rheumatic tricuspid valve insufficiency (Chronic) I36.1 Diastolic dysfunction (Chronic) I51.9 Hx of congestive heart failure (Chronic) Z86.79 Cataract (Resolved) H26.9 Nonrheumatic mitral valve insufficiency (Chronic) I34.0 Nonrheumatic aortic valve insufficiency (Chronic) I35.1 Nonrheumatic mitral valve prolapse (Chronic) I34.1 CHF (congestive heart failure) (Chronic) I50.9 Old myocardial infarction (Resolved) I25.2 NonST Elevation HI Troponin I above reference range (Resolved) R79.89 Chest pain (Resolved) R07.9 GERD (gastroesophageal reflux disease) K21.9 Dyspnea R06.00 Allergies latex Allergy (Mild, Verified 03/10/19 18:29) Rash Penicillins [PCN] Allergy (Verified 03/10/19 18:29) Unknown Yxjkrqz-Pfm-[id number] Reductase Inhibitor Allergy (Verified 03/10/19 18:29) All blood cells low Home Medications: Ambulatory Orders Medication Instructions Recorded Aspirin [Aspirin, Baby] 81 mg PO DAILY@0800 12/13/15 Calcium Carbonate [Calcium] 1,200 mg PO DAILY 12/13/15 Cholecalciferol (VIT D3) [Vitamin 1,000 unit PO DAILY 12/13/15 D3] Fish Oil/Om-3/E/Folic/B6-B12 1 capsule PO QODAY 12/13/15 [Cardiovid Plus Softgel] Levothyroxine [Synthroid] 25 mcg PO MOTUWETHFR 12/13/15 ascorbic acid (vitamin C) 500 mg 500 mg PO QODAY tab 06/17/18 tablet colestipol 1 gram tablet 2 gm PO BID tab 12/10/18 Cyanocobalamin (Vitamin B-12) 1,000 mcg PO QODAY 02/26/19 [Vitamin B-12] Vitamin B Complex [B Complex] 1 tab PO QODAY 02/26/19 Levothyroxine [Synthroid] 50 mcg PO SUSA 03/06/19 Losartan Potassium 25 mg PO DAILY 03/06/19 Pravastatin [Pravachol] 20 mg PO QHS 03/06/19 Ticagrelor [Brilinta] 90 mg PO BID 03/06/19 Polyethylene Glycol 3350 [Miralax] 17 gm PO DAILY PRN 03/07/19 Carvedilol [Coreg (Beta Chaya)] 3.125 mg PO BID #60 tab 03/09/19 Surgical History: Surgical History (Last Updated 03/09/19 @ 08:30 by Emerita Cloud) S/P coronary artery stent placement (Chronic) Onset Date: ~03/08/19 Z95.5 IVUS guided PCI/OZIEL to prox LAD 02/27/19; PTCA/OZIEL to prox Diag #1 and PCI/OZIEL to Mid LAD at bifurcation of diag to ensure no struts from diag stent protruded into LAD 03/08/19 History of appendectomy Z90.49 History of dilatation and curettage Z98.890 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 Surgical History: angioplasty, appendectomy, cataract, dilatation and curettage, - - 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 Psychiatric History: No pertinent psych hx [employer] History: No pertinent [employer] history Lives: Spouse/ Significant Other, With Family Smoking Status: Never smoker Tobacco Use: Non-smoker Alcohol: None Drugs: None - *Family History Maternal Family History: Family History (Last Reviewed 02/26/19 @ 16:47 by Tejas Kim DO) Father CAD (coronary artery disease) Myocardial infarction Mother CVA (cerebral vascular accident) Brother Aneurysm Brother Heart disease Sister Afib Parkinson's disease History Items: Stroke Paternal Family History: Family History (Last Reviewed 02/26/19 @ 16:47 by Tejas Kim DO) Father CAD (coronary artery disease) Myocardial infarction Mother CVA (cerebral vascular accident) Brother Aneurysm Brother Heart disease Sister Afib Parkinson's disease History Items: Heart Disease Sibling Family History: Family History (Last Reviewed 02/26/19 @ 16:47 by Tejas Kim DO) Father CAD (coronary artery disease) Myocardial infarction Mother CVA (cerebral vascular accident) Brother Aneurysm Brother Heart disease Sister Afib Parkinson's disease History Items: Heart Disease, - - Aneurysm Review of Systems Constitutional: Denies: Anorexia, Chills, Fever, Malaise, Weakness, Weight Change Eyes: Denies: Blurred vision, Cataracts, Conjunctivae Inflammation, Pain, Redness, Vision Change HEENT: Denies: Difficulty Hearing, Head Aches, Hearing Changes, Sinus Congestion, Sinus Drainage, Sore Throat, Visual Changes Cardiovascular: Denies: Chest Pain, Claudication, Orthopnea, Palpitations, Paroxysmal Noc. Dyspnea Respiratory: Denies: Cough, Hemoptysis, Shortness of breath at rest, Shortness of breath upon exertion, Sputum production Gastrointestinal: Reports: Abdominal Pain. Denies: Hematemesis, Hematochezia, Nausea, Vomiting Genitourinary: Denies: Dysuria, Frequency, Incontinence Musculoskeletal: Denies: Joint Pain, Joint stiffness, Joint swelling, Joint Tenderness Skin: Denies: Rash, Wounds Neurological: Denies: Numbness, Tingling, Focal weakness Psychiatric: Denies: Anxiety, Depression, Homicidal Ideations, Suicidal Ideations Hematologic/ Lymphatic: Denies: Easy Bruising, Easy Bleeding VTE Information - Inpt Only VTE Present on Admission: No VTE Pharm Prophylaxis ordered?: Yes - Physical Exam General: Alert, Oriented x3, Cooperative, No apparent distress HEENT: Atraumatic, PERRLA, EOMI, Normocephalic Oral: Moist Mucosa Neck: Supple Lungs: Clear to auscultation, Normal air movement Cardiovascular: Regular rate, Regular Rhythm, Normal S1, Normal S2, No murmurs Abdomen: Bowel Sounds Present, Soft, Non Tender, Non-Distended, No Hepato-splenomegaly Extremities: No edema Skin: No rashes, No breakdown Musculoskeletal: No Tenderness to Palpation of Joints or Extremities Lymphatic: No Cervical, Supraclavicular, or Inguinal Adenopathy Neurological: Cranial nerves II-XII grossly intact, Neuro grossly intact Psych/Mental Status: Normal Affect, Appropriate Vital Signs Temp Pulse Resp BP Pulse Ox 98.2 F 89 12 139/71 H 100 03/10/19 18:29 03/10/19 22:07 03/10/19 22:07 03/10/19 22:07 03/10/19 19:09 Oxygen Flow Rate (L/min) 2 Oxygen Delivery Method Nasal Cannula Weight: 62.6 kg Body Mass Index (BMI) 26.0 Laboratory Tests Past 24 Hrs 03/10/19 03/10/19 03/10/19 18:35 18:35 18:35 WBC 6.7 RBC 4.12 L Hgb 12.0 Hct 35.9 L MCV 87.1 MCH 29.1 MCHC 33.4 RDW 13.6 RDW Differential 43.6 Plt Count 198 MPV 8.9 Immature Gran % (Auto) 0.100 Neut % (Auto) 65.8 Lymph % (Auto) 14.9 L [place] % (Auto) 13.9 H Eos % (Auto) 5.2 H Baso % (Auto) 0.1 Absolute Neuts (auto) 4.4 Absolute Lymphs (auto) 1.00 Total Counted Not Reportable Sodium 135 L Potassium 4.5 Chloride 102 Carbon Dioxide 26.0 Anion Gap 7 BUN 22 H Creatinine 1.09 H Estim Creat Clear Calc 30.03 Est GFR (MDRD) Af Amer 62 Est GFR (MDRD) Non-Af 51 L BUN/Creatinine Ratio 20.2 H Glucose 99 Calcium 9.2 Troponin I 2.110 H* Lipase 582 H Urine Color Urine Clarity Urine pH Ur Specific [place] Urine Protein Urine Glucose (UA) Urine Ketones Urine Occult Blood Urine Nitrite Urine Bilirubin Urine Urobilinogen Ur Leukocyte Esterase Urine RBC Urine WBC Ur Squamous Epith Cells Urine Bacteria Urine Mucus 03/10/19 19:50 WBC RBC Hgb Hct MCV MCH MCHC RDW RDW Differential Plt Count MPV Immature Gran % (Auto) Neut % (Auto) Lymph % (Auto) [place] % (Auto) Eos % (Auto) Baso % (Auto) Absolute Neuts (auto) Absolute Lymphs (auto) Total Counted Sodium Potassium Chloride Carbon Dioxide Anion Gap BUN Creatinine Estim Creat Clear Calc Est GFR (MDRD) Af Amer Est GFR (MDRD) Non-Af BUN/Creatinine Ratio Glucose Calcium Troponin I Lipase Urine Color Yellow Urine Clarity Clear Urine pH 7.0 Ur Specific [place] 1.010 Urine Protein Negative Urine Glucose (UA) Normal Urine Ketones Negative Urine Occult Blood 10 H Urine Nitrite Negative Urine Bilirubin Negative Urine Urobilinogen Normal Ur Leukocyte Esterase 100 H Urine RBC 0-5 SEEN Urine WBC 5-10 SEEN Ur Squamous Epith Cells 0-5 SEEN Urine Bacteria 0 SEEN Urine Mucus 0 SEEN Assessment/Plan All Active Problems (Last Reviewed 02/26/19 @ 16:47 by Tejas Kim DO) NSTEMI (non-ST elevated myocardial infarction) (Acute) Chest pain (Acute) Elevated troponin (Acute) Unstable angina (Acute) Cataract (Resolved) Old myocardial infarction (Resolved) Troponin I above reference range (Resolved) Chest pain (Resolved) 83 year old F with recent CAD status post stents done on 03/01/19 (with OZIEL to proximal LAD), 2 stents placed on 03/08/19 (with OZIEL to mid LAD and proximal diagonal 1). Patient was discharged on 03/09/19. She comes back in with complaints of right upper quadrant pain, epigastric and low back pain. Troponins remain elevated at 2.11. Lipase is elevated at 582. No acute EKG changes. CT of the chest, abdominal and pelvic CT as well as ultrasound the gallbladder is unremarkable. 1. Abdominal pain, non-specific, unclear etiology for now, resolved at the time of admission; patient's description of the pain is vague. Elevated lipase, normal looking pancreas on CT of the abdomen and pelvis as well as ultrasound of gallbladder is negative. Doubt acute pancreatitis. Plan: Admit to PCU, monitor closely, repeat lipase in the morning, labs in am 2. Elevated troponins, transient chest discomfort radiating to the neck. s/p recent stents, no acute ST-T changes on EKG Admitting troponins appear improved compared to the last time it was checked. Will trend troponins, cardiology consulted, will hold off giving therapeutic Lovenox for now as troponins are trending down Continue on aspirin, Brilinta, statins, carvedilol 3. Acute on chronic low back pain, musculoskeletal, will continue with Tylenol and Lidoderm patch 4. Hypertension, slightly uncontrolled due to missed medications today, continue on losartan, carvedilol 5. Hypothyroidism, on levothyroxine 6. DVT PPx- Heparin SC 7. Code status: Full code Discussed in detail with the patient explaining the various types of CODE STATUS-full code, DNR CCA, DNR CC. Patient did not appear to be ready to make up her mind. I asked her to discuss that with her family. All questions answered. Time spent discussing CODE STATUS 18 minutes Code Visit Inpatient E&M: 49819 Init Hosp L3 Procedures: 12061 Advncd Care Plan 30 Min
[2019-03-11] MEDS: TICAGRELOR 90 MG TABLET PO ×2 (00:16→11:36)
[2019-03-11] MEDS: Pravastatin 20 MG Tablet PO (00:16)
[2019-03-11] MEDS: 0.9% Normal Saline 1,000 ML 75 ML IV (00:16)
[2019-03-11] MEDS: Carvedilol 3.125 MG TABLET PO ×2 (00:16→11:36)
[2019-03-11 03:12] VITALS: PULSE 67
[2019-03-11 05:14] LABS: Absolute Lymphocyte Count 0.87 X10^3/ul (0.83-4.51); Absolute Neutrophil Count 3.3 X10^3/uL (2.0-7.7); Basophil# 0.01 X10^3/uL; Basophil% 0.2 % (0-1); Eosinophils% 5.9 % (0-5); Hematocrit 36.1 % (37-47); Hemoglobin 12.1 g/dl (12.0-15.0); Lymphocyte # 0.87 X10^3/ul (4.0); Mean Corp Hgb Conc 33.5 g/gl (32-36); Mean Corpuscular Hgb 28.9 pg (27.0-32.0); Mean Corpuscular Volume 86.2 fL (81-99); Monocyte# 0.65 X10^3/uL; Monocyte% 12.7 % (0-10); Neutrophil # 3.28 X10^3/uL (2.7-7.7); Neutrophil % 64.2 % (47-70); POSITIVE COUNT NO; POSITIVE DIFFERENTIAL NO; POSITIVE MORPHOLOGY NO; Platelet Count 198 K/mm3 (150-450); RBC Distribution Width CV 13.4 % (11.6-14.6); RBC Distribution Width SD 41.3 fl (35.1-43.9); Red Blood Count 4.19 M/mm3 (4.2-5.4); White Blood Count 5.1 K/mm3 (4.4-11.0)
[2019-03-11 05:25] VITALS: BP 132/66; PULSE 74; RESP 18; TEMP 36.6; O2SAT 95
[2019-03-11 05:44] LABS: ALB/GLOB Ratio 0.9 RATIO (0.9-2.4); AST(SGOT) 20 U/L (15-37); Alanine Aminotransfer ALT/SGPT 23 U/L (13-56); Albumin, Serum 3.3 g/dL (3.2-5.0); Alkaline Phosphatase 56 U/L (45-117); Anion Gap 7 (5-15); BUN 17 mg/dL (7-18); BUN/Creat Ratio 18.2 RATIO (10-20); Calcium,Total 8.6 mg/dL (8.5-10.1); Chloride 109 mmol/L (98-107); Creatinine, Serum 0.93 mg/dL (0.55-1.02); EST Glomerular Filtration Rate 61 mL/min (>60); Est Glom Filt Rate - Afr Amer 74 mL/min (>60); Estimated Creatinine Clearance 35.19 ml/min; Globulin 3.5 g/dL (2.2-4.2); Glucose 92 mg/dL (74-106); Lipase 488 U/L (73-393); Potassium 4.1 mmol/L (3.5-5.1); Protein, Total 6.8 g/dL (6.4-8.2); Sodium Level 140 mmol/L (136-145)
[2019-03-11] MEDS: Heparin Injection (Vial) 5,000 UNIT/ML VIAL 5000 UNIT SC (06:08)
[2019-03-11] MEDS: Levothyroxine 25 MCG TABLET PO (06:08)
[2019-03-11 07:00] VITALS: PULSE 67
[2019-03-11 07:40] VITALS: O2SAT 94
--- NOTE | 2019-03-11 09:25 | CASEMGMT ---
Readmission chart review: Pt was initially admitted 02/26-03/01/19 as an observation for chest pain/elev trop. Pt had a heart cath with a stent placed to the LAD and per note, pt had picked up all rx's and was taking per recommendation. Pt then returned 03/06-03/09/19 as inpt with NSTEMI and was re-cathed and had another stent placed in the diagonal branch. See assessment completed by Rajat GA CM on 03/09/19. Pt was initiated for OP cardiac rehab at that time. Pt then readmitted 03/10/19 as inpt for RLQ pain/epigastric pain/NSTEMI and is awaiting cardiology c/s at this time. Pt's troponins are lower than last admit and are trending down at this time. CM to follow for any further discharge planning/needs. Siddharth GA CM
[2019-03-11] MEDS: Lidocaine 5% Patch 1 PATCH TOPICAL (09:55)
[2019-03-11] MEDS: Losartan Potassium 25 MG Tablet PO (09:55)
[2019-03-11] MEDS: Aspirin 81 MG TAB.CHEW PO (09:56)
[2019-03-11] MEDS: Calcium (Elemental) 500 MG Tablet 1000 MG PO (09:56)
[2019-03-11 11:25] VITALS: BP 138/84; PULSE 68; RESP 16; TEMP 36.9; O2SAT 98
[2019-03-11] MEDS: 0.9% Normal Saline 1,000 ML 100 ML IV (11:35)
--- NOTE | 2019-03-11 13:47 | DCINST_ITS ---
You will use the following diet at home:: Cardiac Call your doctor if you observe: Shortness of breath, Chest pain Allergies/Adverse Reactions: Allergies latex Allergy (Mild, Verified 03/10/19 18:29) Rash Penicillins [PCN] Allergy (Verified 03/10/19 18:29) Unknown Wzljjze-Gpw-Fva Reductase Inhibitor Allergy (Verified 03/10/19 18:29) All blood cells low Medications to take at Discharge Aspirin [Aspirin, Baby] 81 mg PO DAILY@0800 12/13/15 Calcium Carbonate [Calcium] 1,200 mg PO DAILY 12/13/15 Cholecalciferol (VIT D3) [Vitamin D3] 1,000 unit PO DAILY 12/13/15 Fish Oil/Om-3/E/Folic/B6-B12 [Cardiovid Plus Softgel] 1 capsule PO QODAY 12/13/15 Levothyroxine [Synthroid] 25 mcg PO MOTUWETHFR 12/13/15 ascorbic acid (vitamin C) 500 mg tablet 500 mg PO QODAY tab 06/17/18 colestipol 1 gram tablet 2 gm PO BID tab 12/10/18 Cyanocobalamin (Vitamin B-12) [Vitamin B-12] 1,000 mcg PO QODAY 02/26/19 Vitamin B Complex [B Complex] 1 tab PO QODAY 02/26/19 Levothyroxine [Synthroid] 50 mcg PO SUSA 03/06/19 Losartan Potassium 25 mg PO DAILY 03/06/19 Pravastatin [Pravachol] 20 mg PO QHS 03/06/19 Ticagrelor [Brilinta] 90 mg PO BID 03/06/19 Polyethylene Glycol 3350 [Miralax] 17 gm PO DAILY PRN 03/07/19 Carvedilol [Coreg (Beta Chaya)] 3.125 mg PO BID #60 tab 03/09/19 Acetaminophen [Tylenol Tablet] 650 mg PO Q6H PRN PRN tablet 03/11/19 Primary Care Physician: Dori Boyd DO [Primary Care Provider] - Within 2 Weeks Test Results: Test results from this visit will be discussed in further detail at your follow- up appointment, if applicable. Please Follow Up With: Jakub Bradshaw MD When: 03/17/19 Proposed Discharge Date: 03/11/19
--- NOTE | 2019-03-11 13:49 | DS.PCM_ITS ---
Discharge Date and Diagnosis Date of Admission: 03/10/19 Date of Discharge: 03/11/19 - Primary Discharge Diagnosis Active and Suspected Problems (Last Reviewed 02/26/19 @ 16:47 by Tejas Kim DO) Abdominal pain (Acute) - Secondary Discharge Diagnosis Chronic Problems (Last Reviewed 02/26/19 @ 16:47 by Tejas Kim DO) CAD (coronary artery disease) (Chronic) Valvular heart disease (Chronic) S/P coronary artery stent placement (Chronic ~03/08/19) IVUS guided PCI/OZIEL to prox LAD 02/27/19; PTCA/OZIEL to prox Diag #1 and PCI/OZIEL to Mid LAD at bifurcation of diag to ensure no struts from diag stent protruded into LAD 03/08/19 Essential (primary) hypertension (Chronic) Pure hypercholesterolemia (Chronic) Atherosclerosis of [place] coronary artery of [place] heart without angina pectoris (Chronic) Non-rheumatic tricuspid valve insufficiency (Chronic) Diastolic dysfunction (Chronic) Hx of congestive heart failure (Chronic) Nonrheumatic mitral valve insufficiency (Chronic) Nonrheumatic aortic valve insufficiency (Chronic) Nonrheumatic mitral valve prolapse (Chronic) CHF (congestive heart failure) (Chronic) Hospital Course and Treatment Imaging Results: Clinical Impression(s) from Imaging Studies Chest X-Ray 03/10/19 19:02 IMPRESSION: No acute thoracic pathology. Electronically Signed: Nathaniel Webster, at 19:25 EDT Tel , Service support , Abdomen/Pelvis CT 03/10/19 20:27 IMPRESSION: No acute abdominal or pelvic pathology. Nonacute findings as above. Electronically Signed: Nathaniel Webster, at 21:27 EDT Tel , Service support , Chest CTA 03/10/19 20:27 IMPRESSION: No evidence of pulmonary and wasn't. Stable left upper lobe 5 mm nodule. Electronically Signed: Nathaniel Webster, at 21:20 EDT Tel , Service support , Gallbladder Ultrasound 03/10/19 20:28 IMPRESSION: No acute abnormalities Small right renal cyst. Electronically Signed: Nathaniel Vigil MD at 21:29 EDT , Service support , Operations: None Procedures: None Summary of Care Provided: The patient is a 83 year old F Anthony with abdominal pain. Patient described abdominal pain and is beginning in the lower right quadrant and extended upwards. Given the patient having been in the hospital with 2 stents within the past couple weeks, patient was concerned and presented to the emergency room. Patient had a slight elevation in her lipase of 582 that subsequent down to 488. Patient underwent a CT of her abdomen pelvis that showed no acute intra- abdominal pathology much less pancreatitis. Patient also underwent a CT of her chest that was unremarkable. Patient had a right carotid ultrasound that was negative. Patient's abdominal pain has since resolved and is no longer having any discomfort. Etiology of her abdominal pain is unclear but I do not feel that she had acute pancreatitis given the location of her abdominal pain, the minimal elevation of her lipase and her normal CAT scan. Etiology may have been due to some gas perhaps but that she is no longer having further issues with that. No further work-up is necessary at this time unless it were to recur. Patient did have elevated troponins, however these are trending down since her most recent admission. No additional cardiac work-up is necessary outside of the routine follow-up that she is going to have with Dr. Bradshaw in 1 week's time. [] - Physical Exam General: Alert, No apparent distress HEENT: Atraumatic, Normocephalic Oral: Moist Mucosa, No Gingival or Mucosal Lesions/ Ulcerations Neck: No Nodes, Thyroid Normal Size and Texture Lungs: Clear to auscultation, Normal air movement, No rhonchi, No wheeze Cardiovascular: Regular rate, Regular Rhythm, Normal S1, Normal S2, No murmurs Abdomen: Bowel Sounds Present, Soft, Non Tender, Non-Distended, No Hepato- splenomegaly Vital Signs Temp Pulse Resp BP Pulse Ox 36.9 C 68 16 138/84 H 98 03/11/19 11:25 03/11/19 11:25 03/11/19 11:25 03/11/19 11:25 03/11/19 11:25 Oxygen Flow Rate (L/min) 2 Oxygen Delivery Method Room Air Weight: 60.2 kg Body Mass Index (BMI) 25.0 Intake and Output for Last 24 Hours 03/09/19 03/10/19 03/11/19 23:59 23:59 23:59 Intake Total 2239 / 223 Balance 223 / 223 Laboratory Tests Past 24 Hrs 03/10/19 03/10/19 03/10/19 18:35 18:35 18:35 WBC 6.7 RBC 4.12 L Hgb 12.0 Hct 35.9 L MCV 87.1 MCH 29.1 MCHC 33.4 RDW 13.6 RDW Differential 43.6 Plt Count 198 MPV 8.9 Immature Gran % (Auto) 0.100 Neut % (Auto) 65.8 Lymph % (Auto) 14.9 L Emanuel % (Auto) 13.9 H Eos % (Auto) 5.2 H Baso % (Auto) 0.1 Absolute Neuts (auto) 4.4 Absolute Lymphs (auto) 1.00 Total Counted Not Reportable Sodium 135 L Potassium 4.5 Chloride 102 Carbon Dioxide 26.0 Anion Gap 7 BUN 22 H Creatinine 1.09 H Estim Creat Clear Calc 30.03 Est GFR (MDRD) Af Amer 62 Est GFR (MDRD) Non-Af 51 L BUN/Creatinine Ratio 20.2 H Glucose 99 Calcium 9.2 Total Bilirubin AST ALT Alkaline Phosphatase Troponin I 2.110 H* Total Protein Albumin Globulin Albumin/Globulin Ratio Lipase 582 H Urine Color Urine Clarity Urine pH Ur Specific [place] Urine Protein Urine Glucose (UA) Urine Ketones Urine Occult Blood Urine Nitrite Urine Bilirubin Urine Urobilinogen Ur Leukocyte Esterase Urine RBC Urine WBC Ur Squamous Epith Cells Urine Bacteria Urine Mucus 03/10/19 03/10/19 03/11/19 19:50 23:50 02:35 WBC RBC Hgb Hct MCV MCH MCHC RDW RDW Differential Plt Count MPV Immature Gran % (Auto) Neut % (Auto) Lymph % (Auto) Emanuel % (Auto) Eos % (Auto) Baso % (Auto) Absolute Neuts (auto) Absolute Lymphs (auto) Total Counted Sodium Potassium Chloride Carbon Dioxide Anion Gap BUN Creatinine Estim Creat Clear Calc Est GFR (MDRD) Af Amer Est GFR (MDRD) Non-Af BUN/Creatinine Ratio Glucose Calcium Total Bilirubin AST ALT Alkaline Phosphatase Troponin I 2.080 H* 2.010 H* Total Protein Albumin Globulin Albumin/Globulin Ratio Lipase Urine Color Yellow Urine Clarity Clear Urine pH 7.0 Ur Specific [place] 1.010 Urine Protein Negative Urine Glucose (UA) Normal Urine Ketones Negative Urine Occult Blood 10 H Urine Nitrite Negative Urine Bilirubin Negative Urine Urobilinogen Normal Ur Leukocyte Esterase 100 H Urine RBC 0-5 SEEN Urine WBC 5-10 SEEN Ur Squamous Epith Cells 0-5 SEEN Urine Bacteria 0 SEEN Urine Mucus 0 SEEN 03/11/19 03/11/19 05:00 05:00 WBC 5.1 RBC 4.19 L Hgb 12.1 Hct 36.1 L MCV 86.2 MCH 28.9 MCHC 33.5 RDW 13.4 RDW Differential 41.3 Plt Count 198 MPV 9.0 Immature Gran % (Auto) 0.000 Neut % (Auto) 64.2 Lymph % (Auto) 17.0 L Emanuel % (Auto) 12.7 H Eos % (Auto) 5.9 H Baso % (Auto) 0.2 Absolute Neuts (auto) 3.3 Absolute Lymphs (auto) 0.87 Total Counted Not Reportable Sodium 140 Potassium 4.1 Chloride 109 H Carbon Dioxide 24.0 Anion Gap 7 BUN 17 Creatinine 0.93 Estim Creat Clear Calc 35.19 Est GFR (MDRD) Af Amer 74 Est GFR (MDRD) Non-Af 61 BUN/Creatinine Ratio 18.2 Glucose 92 Calcium 8.6 Total Bilirubin 0.40 AST 20 ALT 23 Alkaline Phosphatase 56 Troponin I 2.010 H* Total Protein 6.8 Albumin 3.3 Globulin 3.5 Albumin/Globulin Ratio 0.9 Lipase 488 H Urine Color Urine Clarity Urine pH Ur Specific [place] Urine Protein Urine Glucose (UA) Urine Ketones Urine Occult Blood Urine Nitrite Urine Bilirubin Urine Urobilinogen Ur Leukocyte Esterase Urine RBC Urine WBC Ur Squamous Epith Cells Urine Bacteria Urine Mucus Discharge Diet: Low fat/ Low Cholesterol Call your doctor if you observe: Shortness of breath, Chest pain Home Medications: Medications to take at Discharge Aspirin [Aspirin, Baby] 81 mg PO DAILY@0800 12/13/15 Calcium Carbonate [Calcium] 1,200 mg PO DAILY 12/13/15 Cholecalciferol (VIT D3) [Vitamin D3] 1,000 unit PO DAILY 12/13/15 Fish Oil/Om-3/E/Folic/B6-B12 [Cardiovid Plus Softgel] 1 capsule PO QODAY 0 12/13/15 Levothyroxine [Synthroid] 25 mcg PO MOTUWETHFR 12/13/15 ascorbic acid (vitamin C) 500 mg tablet 500 mg PO QODAY tab 06/17/18 colestipol 1 gram tablet 2 gm PO BID tab 12/10/18 Cyanocobalamin (Vitamin B-12) [Vitamin B-12] 1,000 mcg PO QODAY 02/26/19 Vitamin B Complex [B Complex] 1 tab PO QODAY 02/26/19 Levothyroxine [Synthroid] 50 mcg PO SUSA 03/06/19 Losartan Potassium 25 mg PO DAILY 03/06/19 Pravastatin [Pravachol] 20 mg PO QHS 03/06/19 Ticagrelor [Brilinta] 90 mg PO BID 03/06/19 Polyethylene Glycol 3350 [Miralax] 17 gm PO DAILY PRN 03/07/19 Carvedilol [Coreg (Beta Chaya)] 3.125 mg PO BID #60 tab 03/09/19 Acetaminophen [Tylenol Tablet] 650 mg PO Q6H PRN PRN tablet 03/11/19 Primary Care Physician: Dori Boyd DO [Primary Care Provider] - Within 2 Weeks Please Follow Up With: Jakub Bradshaw MD When: 03/17/19 Disposition: Home Minutes spent on discharge:: 25 Patient Condition:: Good Medical Necessity - Tobacco Use Smoking Status: Never smoker Tobacco Use: Non-smoker Meaningful Use Info Meaningful Use Diagnoses (Choose all that apply): None applicable Code Visit OBSV E&M: 76762 Observation care discharge
[2019-03-11 15:20] VITALS: BP 128/74; PULSE 80; RESP 16; TEMP 36.9; O2SAT 96
== END 2019-03-11 13:48 | disposition home or self-care (01) ==
LOC: ED 21:37 → PCU 22:49
PROVIDERS: Internal Medicine Cardiovascular Disease; Admitting Provider Internal Medicine; Emergency Provider Emergency Medicine; Family Provider Internal Medicine; PCP Internal Medicine
DX: R10.13 Epigastric pain (principal); I25.2 Old myocardial infarction; I25.10 Atherosclerotic heart disease of native coronary artery without angina pectoris; E78.00 Pure hypercholesterolemia, unspecified; I50.9 Heart failure, unspecified; I11.0 Hypertensive heart disease with heart failure; I45.10 Unspecified right bundle-branch block; K21.9 Gastro-esophageal reflux disease without esophagitis; G89.29 Other chronic pain; M54.5 Low back pain; E03.9 Hypothyroidism, unspecified; Z95.5 Presence of coronary angioplasty implant and graft; Z79.899 Other long term (current) drug therapy; Z79.82 Long term (current) use of aspirin
CPT/HCPCS: 36415; 71045; 71275; 74177; 76705; 80048; 80053; 81001; 83690; 84484; 85025; 93005; 96360; 96361; 96372; 99218; 99285; J7030; Q9967; A4216; G0378

== ENCOUNTER → 2019-03-31 09:24 | Outpatient (CLI) | payer MEDICARE, SELFPAY ==
[2019-02-26 16:51] VITALS: BMI 24.8
[2019-02-27 14:50] VITALS: BMI 22.1
[2019-03-25 14:27] VITALS: BMI 24.9
--- NOTE | 2019-03-31 09:57 | CR.HP_ITS ---
CR - History & Physical - General Arrival date:: 03/31/19 Arrival time:: 09:30 Date of Referral:: 02/27/19 Date of CR Evaluation:: 03/31/19 Referring Physician: DR URIARTE Primary Diagnosis: PCI WITH STENT - History of Present Cardiac Event Onset Date: Enter Onset Date of cardiac illnesses in Comment field below Current stable Angina Pectoris:: No Acute Myocardial Infarction within 12 months:: No Coronary Artery Bypass Graft:: No Heart valve replacement or repair:: No PTCA or coronary stenting:: Yes Heart or Heart-Lung Transplant:: No Heart Failure EF <35%:: No Type of Symptoms:: LT CHEST AND NECK PRESSURE. SEVERE SOB Interventions with present event:: PCI WITH STENT Were there any complications?: B/P MEDICATION (HYPOTENSION) - Medications Home Medications: Ambulatory Orders Medication Instructions Recorded Aspirin [Aspirin, Baby] 81 mg PO DAILY@0800 12/13/15 Calcium Carbonate [Calcium] 1,200 mg PO DAILY 12/13/15 Cholecalciferol (VIT D3) [Vitamin 1,000 unit PO DAILY 12/13/15 D3] Fish Oil/Om-3/E/Folic/B6-B12 1 capsule PO QODAY 12/13/15 [Cardiovid Plus Softgel] Levothyroxine [Synthroid] 25 mcg PO MOTUWETHFR 12/13/15 ascorbic acid (vitamin C) 500 mg 500 mg PO QODAY tab 06/17/18 tablet colestipol 1 gram tablet 2 gm PO BID tab 12/10/18 Cyanocobalamin (Vitamin B-12) 1,000 mcg PO QODAY 02/26/19 [Vitamin B-12] Vitamin B Complex [B Complex] 1 tab PO QODAY 02/26/19 Levothyroxine [Synthroid] 50 mcg PO SUSA 03/06/19 Polyethylene Glycol 3350 [Miralax] 17 gm PO DAILY PRN 03/07/19 Acetaminophen [Tylenol Tablet] 650 mg PO Q6H PRN PRN tab 03/11/19 ezetimibe 10 mg tablet 10 mg PO DAILY #30 tab 03/18/19 carvedilol 3.125 mg tablet 3.125 mg PO BID #180 tab 03/25/19 losartan 25 mg tablet 25 mg PO DAILY #90 tab 03/25/19 ticagrelor 90 mg tablet 90 mg PO BID #180 tab 03/25/19 - Allergies Allergies/Adverse Reactions: Allergies latex Allergy (Mild, Verified 03/25/19 14:27) Rash Penicillins [PCN] Allergy (Verified 03/25/19 14:27) Unknown [id number]-[id number] Reductase Inhibitor Allergy (Verified 03/25/19 14:27) All blood cells low - Sleep Disorder Evaluation Hx of Sleep Apnea: No Do you snore loudly (louder than talking or can be heard through closed doors)?: No Do you often feel tired/ fatigued/ sleepy during daytime?: No Has anyone observed you stop breathing during sleep?: No History of Hypertension (for STOP score): No STOP Results: Negative Advanced Directives - Advanced Directives Power of Professor Of Surgery: Yes - ENCOURAGED TO BRING COPIES TO [facility] MEDICAL RECORDS Living Will: Yes Advance Directives on File: No - SAME ABOVE DNR Order?:: No Past Medical History - Past Medical Illness Medical History: Past Medical History (Last Reviewed 02/26/19 @ 16:47 by Tejas Kim DO) Essential (primary) hypertension (Chronic) I10 Pure hypercholesterolemia (Chronic) E78.00 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) I25.10 IVUS guided PCI/OZIEL to prox LAD 02/27/19; PTCA/OZIEL to prox Diag #1 and PCI/OZIEL to Mid LAD at bifurcation of diag to ensure no struts from diag stent protruded into LAD 03/08/19 Non-rheumatic tricuspid valve insufficiency (Chronic) I36.1 Diastolic dysfunction (Chronic) I51.9 Hx of congestive heart failure (Chronic) Z86.79 Cataract (Resolved) H26.9 Nonrheumatic mitral valve insufficiency (Chronic) I34.0 Nonrheumatic aortic valve insufficiency (Chronic) I35.1 Nonrheumatic mitral valve prolapse (Chronic) I34.1 CHF (congestive heart failure) (Chronic) I50.9 Old myocardial infarction (Resolved) I25.2 NonST Elevation OK Troponin I above reference range (Resolved) R79.89 Chest pain (Resolved) R07.9 GERD (gastroesophageal reflux disease) K21.9 Dyspnea R06.00 - Past Surgical History Surgical History: Past Surgical History (Last Updated 03/09/19 @ 08:30 by Emerita Cloud) S/P coronary artery stent placement (Chronic) Onset Date: ~03/08/19 Z95.5 IVUS guided PCI/OZIEL to prox LAD 02/27/19; PTCA/OZIEL to prox Diag #1 and P CI/OZIEL to Mid LAD at bifurcation of diag to ensure no struts from diag stent protruded into LAD 03/08/19 History of appendectomy Z90.49 History of dilatation and curettage Z98.890 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 Surgical History: angioplasty, appendectomy, cataract, dilatation and curettage, - - 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 - Family History Summary Family History: Family History (Last Reviewed 02/26/19 @ 16:47 by Tejas Kim DO) Father CAD (coronary artery disease) Myocardial infarction Mother CVA (cerebral vascular accident) Brother Aneurysm Brother Heart disease Sister Afib Parkinson's disease Social History - Smoking History Smoking Status: Never smoker - Alcohol Use Alcohol Usage: No - Substance Abuse Hx Substance Use: No - 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 Left click = Reports ([place]) Review of Present Symptoms: Reports: Fatigue, Appetite - Normal, Appetite - Special Diet - PT HAS ALREADY CONTACTED NUTRITIONAL SERVICES, Sleep - Normal. Denies: Shortness of Breath at Rest, Shortness of Breath with Exertion, PVD, Operative Discomfort, Angina, Wound Healing, Heart Arrhythmia/Irregularities - Pain Is Patient Pain Free?: Yes Risk Factor Assessment - Vital Signs Temperature: 98.6 F Respiratory Rate: 16 Pulse Ox: 96 Blood Pressure: 110/52 Nailbeds:: PINK - Pulse Pulse Rate: 68 Pulse Rhythm: Regular - Hypertension How long have you been treated?: SINCE STENTS On medication(s)?: YES Blood Pressure Sitting - Left Arm: 110/52 - Stress Stress: Home/Family - SISTER WITH PARKINSONS - Blood Cholesterol/Lipids Total Cholesterol (mg/dL) Goal = less than 200 mg/dL: 150 HDL Cholesterol (mg/dL) Goal = less than 40 mg/dL: 77 LDL Cholesterol (mg/dL) Goal = less than 70 mg/dL: 127 Triglycerides (mg/dL) Goal = less than 150 mg/dL: 59 - Diabetes Nutrition Referral for Diabetes: No - Obesity Height: 5 ft 1 in Weight:: 133 lb Weight in Pounds: 133.0 lbs Weight Source: Estimated by Patient Body Mass Index (BMI): 25.1 Nutritional Referral for Obesity: No - Physical Inactivity Physical Inactivity: None - Risk Stratification Risk Guidelines: Lowest Risk: Risk Factor for Smoking, Risk Factor for Dyslipidemia, Risk Factor for Obesity, Risk Factor for Hypertension, Moderate Risk: Risk Factor for Diabetes - BORDERLINE, Risk Factor for Sedentary Lifestyle, Risk Factor for Depression - LIKE TO BE ABLE TO DO WHAT I USE TO DO - For Smoking Smoking Risk Guidelines: Smoking Low Risk: None or quit greater than 6 months ago. Smoking Moderate Risk: Smoker or quit 6 months or less ago. Smoking High Risk: Smoker - For Dyslipidemia Dyslipidemia Risk Guidelines: Low Risk: Moderate Risk: High Risk: 15-25% fat 25.1-29% fat >/= 30% fat. <7% sat fat 7-9% sat fat >9% sat fat. <150 mg chol 150-299 mg chol >/= 300 mg chol. LDL <100 LDL 100-129 LDL >/= 130. Chol/HDL ratio <5.0 Chol/HDL ratio 5.0-6.0 Chol/HDL ratio >6.0. Triglycerides <100 Triglycerides 100- 149 Triglycerides >/= 150 - For Diabetes Mellitus Diabetes Risk Guidelines: Diabetes Low Risk: HgA1c <6.5% and/or FBG <120. Diabetes Moderate Risk: HgA1c 6.6-7.9% and/or FBG 120-180. Diabetes High Risk: HgA1c >/= 8% and/or FBG >180 - For Obesity/Overweight Obesity/Overweight Risk Guidelines: Obesity Low Risk: BMI <25.0. Obesity Moderate Risk: BMI 25-29.9. Obesity High Risk: BMI >/= 30.0 - For Hypertension Hypertension Risk Guidelines: Hypertension Low Risk: Systolic <120 and Diastolic <80. Hypertension Moderate Risk: Systolic 120-139 and Diastolic 80-89. Hypertension High Risk: Systolic >/= 140 and Diastolic >/= 90 - For Sedentary Lifestyle Sedentary Lifestyle Risk Guidelines: Sedentary Lifestyle Low Risk: >/= 1,500 kcal/week. Sedentary Lifestyle Moderate Risk: 700-1,499 kcal/week. Sedentary Lifestyle High Risk: < 700 kcal/week - For Depression Depression Risk Guidelines: Depression Low Risk: Not clinically depressed. Depression Moderate Risk: Mildly depressed. Depression High Risk: Clinically depressed - Family History Family History: Family History (Last Reviewed 02/26/19 @ 16:47 by Tejas Kim DO) Father CAD (coronary artery disease) Myocardial infarction Mother CVA (cerebral vascular accident) Brother Aneurysm Brother Heart disease Sister Afib Parkinson's disease Motivation - Motivation to Participate On a scale of 1 to 10, how prepared are you to commit to attending program?: 10 What do you see as barriers to successfully being able to complete the program?: NONE What do you see as the benefits of succesfully completing the program? In other words, what do you hope to get out of participating in the program?: GET MY ENERGY BACK Are there issues you are dealing with that will interfere with completing the program?: NONE Do you have a spouse or signficant other, family or friends who will help support you to complete the program?: SPOUSE
--- NOTE | 2019-03-31 09:59 | CR.ITP_ITS ---
General Information - General Information Admitting Diagnosis: PCI W/CORONARY STENT PLACEMENT - Education/Goals Barriers to Learning: Vision Impairment - REQUIRES READING GLASSES Individual Counseling: Initial Assessment: Abnormal Cholesterol Levels, High B lood Pressure, Overweight/Obesity Cardiac Rehabilitation Goals: 1. Maintain the individual as the primary focus of care. 2. To improve the patient's quality of life. 3. Identification of cardiac risk factors and provide cardiac risk factor management. 4. Enhance the psychosocial status of the patient. 5. Reconditioning enough to allow the patient to resume customary activities. 6. Control symptoms of cardiac disease Scale for measuring improvement of personal goals: Enter appropriate number in Comments. 2 = Unchanged. 3 = Slightly Better. 4 = Moderate Improvement. 5 = Met my Goal Personal Goals: Initial Assessment: Improve management of stress and emotions, Improve energy level, Participate in home exercise program, Improve knowledge of cardiac disease, Improve muscle strength and endurance, Improve diet and eating habits (eat healthier), Control risk factors (learn risk factor modification) Exercise - Initial Assessment - Visit Date of Eval: 03/31/19 Session #:: 0 - SCHEDULED TO START CR ON - Stages of Change Stages of Change:: Action - Physician Prescribed Exercise Modalities: Treadmill, Airdyne, NuStep, SciFit Frequency (days/week): 3x/week for 12 weeks [36 sessions] Duration (Minutes):: 30-45 Intensity: 60-80% age predicted maximum heart rate reserve METs - Progression: 0.5-1.0 MET, RPE 11-14 WEEK: 2.5 Target Heart Rate:: 92-117 - Hypertension Do any of the following apply?: Yes, Medication, Diet Resting Blood Pressure:: 120/78 - Intervention Home Exercise/Activity Goal:: Sitting Time <3 hrs/day - Education Goals:: Warm-up, RPE MANDY Scale, S/S, Safe Exercise, Self-Monitoring - Exercise Program Goals Exercise Program Goals: Aerobic Activity >30 min Nutrition - Initial Assessment - Program Goals Nutrition Program Goals: LDL <70. Total Cholesterol <200. HDL >45. Triglycerides <150. HgbA1C <7%. BMI <25 - Visit Date of Assessment:: 03/31/19 - Stages of Change Stages of Change:: Action - Lipids Total Cholesterol (mg/dL) Goal = less than 200 mg/dL: 216 - 03/11/2019 HDL Cholesterol (mg/dL) Goal = less than 45 mg/dL: 77 LDL Cholesterol (mg/dL) Goal = less than 70 mg/dL: 127 Triglycerides (mg/dL) Goal = less than 150 mg/dL: 59 - Diabetes Diabetes:: No - Weight Management Height: 5 ft 1 in Weight:: 132 lb Body Fat %:: 24.9 - Intervention Referral to dietitian:: No - ALREADY SCHEDULED TO SEE DIETARY SERVICES Referral to Diabetic Clinic:: No Will attend diet classes:: Yes - Education Gave educational materials for:: Healthy eating Tobacco - Initial Assessment - Program Goals Tobacco Program Goals: Complete smoking cessation. Attend education classes. Improve Knowledge Test score - Stage of Change Stages of Change:: Action - Learning Barriers Learning Barriers: Vision - REQUIRES GLASSES FOR READING, Ready to Learn - Family Support Do you have family support?: Yes - IS VERY SUPPORTIVE - Tobacco Use Tobacco Use: Non-smoker - PATIENT HAS NEVER SMOKED Do you use smokeless tobacco?: No - Intervention Smoking Cessation Referral:: No - Education Attended class for:: Treating Heart Disease, How The Heart Works, What it means to have Heart Disease, How Coronary Artery Disease is Diagnosed, Heart Procedures, What Heart Medications Do, Risk Factors & Modifications, Living an Active Life, Nutrition, Emotions & Heart Disease, Stress Management & Relaxation, Sleep Disorders & Heart Disease Psychosocial - Initial Assess - Target Goals Target Goals: Assess presence or absence of depression. Using a valid screening tool, maximizes coping skills. Positive support system - Stages of Change Stages of Change:: Action - Psychosocial Test Tool Used:: HANDS Depression Questionnaire - Intervention PS - Interventions: Yes Attend Stress Management Classes, No Referral to Mental Health, No Referral to [facility] Case Management, No Referral to Physician, No Uses Stress Management Skills - Education Gave educational materials for:: Coping techniques, Signs & symptoms of depression, Stress management, Relaxation techniques - Patient/Program Goal Preventative Medication(s):: Aspirin, JORGE LUIS inhibitor, Clopidogrel, Beta orion, Statin/lipid - Assistive Devices Assistive Devices:: None Fall Risk Assessed:: Yes Patient Health Questionnaire Initial Assessment 1. Little interest or pleasure in doing things: More than half the days 2. Feeling down, depressed, or hopeless: More than half the days 3. Trouble falling or staying asleep, or sleeping too much: More than half the days 4. Feeling tired or having little energy: Nearly every day 5. Poor appetite or overeating: More than half the days 6. Feeling bad about yourself -- or that you are a failure or have let yourself or your family down: Nearly every day 7. Trouble concentrating on things, such as reading the newspaper or watching television: More than half the days 8. Moving or speaking so slowly that other people could have noticed. Or the opposite - being so fidgety or restless that you have been moving around a lot more than usual: More than half the days 9. Thoughts that you would be better off , or of hurting yourself in some way: Not at all How difficult have these problems made it for you to do your work, take care of things at home, or get along with other people?: Somewhat difficult - Patient is at mild risk of depression and could benefit from medication or counseling. Total Score: 18 GARRICK-Q SV Test - Statements CAD is a disease of the arteries in the heart: False Examples of risk factors for heart disease: True Angina is chest pain or discomfort: True The benefits of resistance training include: True Eating more meat and dairy products: False Anti-platelet medications such as aspirin are important: True The only effective way to manage stress: True An exercise warm-up slowly increases heart rate: True Prepared, processed foods usually have high sodium: True Depression is common after a heart attack: True The statin medications lower cholesterol: True To control blood pressure, lower the amount of sodium: True If someone gets chest discomfort during walking: False Transfats are partially hydrogenated vegetable oils: True Sleep apnea that is not treated increases the risk: True To control cholesterol, one should become a vegetarian: I Don't Know Someone knows if he/she is exercising at the right level: True Diabetes cannot be prevented with exercise & health eating: False Stress is a large risk for heart attack: True A diet that can help lower blood pressure is rich in: I Don't Know - Total Score Total Correct Responses: 16 Self-Efficacy Initial Assessment We would like to know how confident you are in doing certain activities. Please select your confidence level for:: Select your confidence level for the following using the scale 1-10 where 1 is not at all confident and 10 is totally confident. Your score is the average of all 6 responses. Fatigue: How confident are you that you can keep the fatigue caused by your disease from interfering with the things you want to do? Select Number: 7 Physical Discomfort or Pain: How confident are you that you can keep the physical discomfort or pain of your disease from interfering with the things you want to do? Select Number: 7 Emotional Distress: How confident are you that you can keep the emotional distress caused by your disease from interfering with the things you want to do? Select Number: 7 Other Symptoms or Health Problems: How confident are you that you can keep other symptoms or health problems from interfering with the things you want to do? Select Number: 7 Different Tasks and Activities: How confident are you that you can do the different tasks and activities needed to manage your health condition so as to reduce your need to see a doctor? Select Number: 8 Medication: How confident are you that you can do things other than just taking medication to reduce how much your illness affects your everyday life? Select Number: 8 Total Score:: 7 Nutrition Survey - Nutrition Survey Instructions Scoring Instructions: Scoring is as follows: Yes = 1 points. No = 0 point. Patient score that is >/=12 is considered to be at potential nutritional risk and could benefit from a referral to a registered dietitian. - Nutrition Survey Initial Have you lost >10 lbs over the past 2 months without trying?: No Are you following a special diet at home for diabetes, low fat, or low salt?: Yes Are you interested in meeting with a dietitian for help understanding your diet?: Yes Do you eat less than 3 meals a day?: No Do you eat fatty meats (rendon, sausage, ribs, etc), fried foods, desserts, large amounts of salad dressings, margarine, butter, or cheese most days?: No Do you have food allergies? [Enter types in comment field]: No Do you eat in restaurants more than 3 times a week?: Yes Do you season food with salt, seasoning salt, or garlic salt?: No Do you used canned, boxed, frozen meals, or soups, seasoning packets?: No Total Score:: 3
[2019-03-31 10:23] VITALS: BP 110/52; PULSE 68; RESP 16; TEMP 37; O2SAT 96; BMI 25.1
[2019-03-31 10:58] VITALS: BP 120/78
== END ==
PROVIDERS: Family Provider Internal Medicine; PCP Internal Medicine; Referring Provider Internal Medicine Cardiovascular Disease; Visit Provider Internal Medicine Cardiovascular Disease
DX: R07.89 Other chest pain (principal)

== ENCOUNTER 2019-04-16 17:04 | Inpatient (IN) | payer MEDICARE, SELFPAY ==
[2019-02-27 14:50] VITALS: BMI 22.1
[2019-03-31 10:23] VITALS: BMI 25.1
[2019-04-16 17:05] VITALS: BP 167/88; PULSE 88; RESP 18; TEMP 36.6; O2SAT 98; BMI 24.5
[2019-04-16 17:35] VITALS: BP 154/71; PULSE 79; RESP 14; TEMP 37.2; O2SAT 97
[2019-04-16 17:48] LABS: Absolute Lymphocyte Count 0.88 X10^3/uL (0.83-4.51); Absolute Neutrophil Count 3.3 X10^3/uL (2.0-7.7); Basophil# 0.02 X10^3/uL; Basophil% 0.4 % (0-1); Eosinophil# 0.19 X10^3/uL; Eosinophils% 3.6 % (0-5); Hematocrit 34.7 % (37-47); Hemoglobin 11.8 g/dL (12.0-15.0); Lymphocyte # 0.88 X10^3/ul (4.0); Lymphocyte % 16.8 % (19-41); Mean Corpuscular Hgb 28.9 pg (27.0-32.0); Mean Platelet Vol. 8.3 fl (6.2-12.0); Monocyte# 0.79 X10^3/uL; Monocyte% 15.1 % (0-10); NRBC Flagged by Analyzer 0 % (0-5); Neutrophil # 3.34 X10^3/uL (2.7-7.7); Neutrophil % 63.7 % (47-70); Platelet Count 251 K/mm3 (150-450); RBC Distribution Width CV 12.6 % (11.6-14.6); RBC Distribution Width SD 38.8 fl (35.1-43.9); Red Blood Count 4.08 M/mm3 (4.2-5.4); White Blood Count 5.2 K/mm3 (4.4-11.0)
--- NOTE | 2019-04-16 17:48 | ED.VIS.GEN ---
History of Present Illness Chief Complaint: Complaint Informant: Patient Onset: Days Context: Gradual Onset Timing: Intermittent Current Severity: Moderate Maximum Severity: Moderate Narrative: The patient presents to the emergency department with generalized weakness, urinary frequency, and malaise. The patient was recently treated for urinary tract infection. She states that she was on antibiotics for 5 days. She states that she had to stop because she had thrush. She states that she was still feeling ill. She followed up with her primary care and had labs drawn. She was found to have mild hyponatremia and hyperkalemia. She was unsure which antibiotic she was on. She denies any fevers or chills. She does admit to nausea without vomiting. She denies any focal symptoms. Patient states she is been really watching her sodium intake because she did have recent cardiac catheterization with stent placement. 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 Smoking Status: Never smoker - Family History Maternal Family History: Family History (Last Reviewed 02/26/19 @ 16:47 by Tejas Kim DO) Father CAD (coronary artery disease) Myocardial infarction Mother CVA (cerebral vascular accident) Brother Aneurysm Brother Heart disease Sister Afib Parkinson's disease Family History: Reports: Stroke Paternal Family History: Family History (Last Reviewed 02/26/19 @ 16:47 by Tejas Kim DO) Father CAD (coronary artery disease) Myocardial infarction Mother CVA (cerebral vascular accident) Brother Aneurysm Brother Heart disease Sister Afib Parkinson's disease Family History: Reports: Heart Disease Sibling Family History: Family History (Last Reviewed 02/26/19 @ 16:47 by Tejas Kim DO) Father CAD (coronary artery disease) Myocardial infarction Mother CVA (cerebral vascular accident) Brother Aneurysm Brother Heart disease Sister Afib Parkinson's disease Family History: Reports: Heart Disease, - - Aneurysm Review of Systems General: Reports: Chills Eyes: Denies: Visual changes - bilaterally, Diplopia ENT: Denies: Rhinorrhea, Sore throat Cardiovascular: Denies: Chest pain, Palpitations Respiratory: Denies: Dyspnea, Cough, Dyspnea on exertion Gastrointestinal: Reports: Nausea Genitourinary: Reports: Frequency Musculoskeletal: Denies: Back pain, Extremity Pain Skin: Denies: Rash, Wounds Neurological: Denies: Headache, Weakness, Numbness Physical Exam Vital Signs/Narrative: Vital Signs Temp Pulse Resp BP Pulse Ox 04/16/19 17:35 99 F 79 14 154/71 H 97 04/16/19 17:05 98 F 88 18 167/88 H 98 Inital Vital Signs reviewed: Yes General: Well nourished, Well developed, No Acute Distress Head: Normocephalic, Atraumatic Eyes: Perrl, EOMI ENT: Moist mucous membranes, No rhinorrhea Neck: Supple, Nontender Cardiovascular: Regular rate, Regular rhythm, No murmurs Respiratory: No distress, CTA bilaterally, Chest nontender Abdomen: Soft, Nontender, Nondistended, Normal bowel sounds Back: Nontender, Normal Inspection Extremities: Nontender, No edema Skin: Normal color, No rash Neurological: Alert, Oriented x3, Cranial nerves II-XII grossly intact, Normal Strength, Normal Sensation Psychological: Normal affect, Normal Mood Diagnostic/Tx/Re-eval Abnormal Lab Results 04/16/19 04/16/19 04/16/19 17:34 17:34 18:00 WBC 5.2 RBC 4.08 L Hgb 11.8 L Hct 34.7 L MCV 85.0 MCH 28.9 MCHC 34.0 RDW Std Deviation 38.8 RDW Coeff of Young 12.6 Plt Count 251 MPV 8.3 Immature Gran % (Auto) 0.400 Neut % (Auto) 63.7 Lymph % (Auto) 16.8 L Hart % (Auto) 15.1 H Eos % (Auto) 3.6 Baso % (Auto) 0.4 Absolute Neuts (auto) 3.3 Absolute Lymphs (auto) 0.88 Nucleated RBC % 0 Sodium 125 L Potassium 4.3 Chloride 90 L Carbon Dioxide 26.0 Anion Gap 9 BUN 18 Creatinine 1.08 H Estim Creat Clear Calc 30.31 Est GFR (MDRD) Af Amer 62 Est GFR (MDRD) Non-Af 52 L BUN/Creatinine Ratio 16.7 Glucose 89 Calcium 9.2 Total Bilirubin 0.50 AST 16 ALT 22 Alkaline Phosphatase 62 Total Protein 7.3 Albumin 3.6 Globulin 3.7 Albumin/Globulin Ratio 1.0 Urine Color Yellow Urine Clarity Sl. Cloudy Urine pH 7.0 Ur Specific [place] 1.010 Urine Protein Negative Urine Glucose (UA) Normal Urine Ketones 5 H Urine Occult Blood 10 H Urine Nitrite Negative Urine Bilirubin Negative Urine Urobilinogen Normal Ur Leukocyte Esterase 100 H Urine RBC 0-5 SEEN Urine WBC 5-10 SEEN Ur Squamous Epith Cells 0-5 SEEN Urine Bacteria 0 SEEN Urine Mucus 0 SEEN - Medical Decision Making The patient presents with persistent urinary tract infection and new hyponatremia. I am not sure if this is antibiotic related or as the patient states she is changed her diet since her recent cardiovascular procedure. She is not on any diuretics. Her urine does show persistent evidence of infection and her sodium is 125. The patient was gently hydrated. Given her new hyponatremia I do feel that she would benefit from admission. Patient was discussed with the hospitalist who agrees with plan of care. Impression 1. Hyponatremia 2. UTI ED Disposition - Plan for ED Patient: Disposition: Acute Care Hospital [facility]
[2019-04-16 18:07] LABS: Bacteria 0 SEEN /hpf (None Seen); Mucous, Urine 0 SEEN /hpf (<or=2+)
[2019-04-16 18:09] LABS: Color, Urine Yellow (Yellow); Glucose, Dipstick Normal (Normal); Ketone-Dipstick 5 mg/dl (Negative); Leukocyte Esterase-Dipstick 100 /ul (Negative); Nitrite-Dipstick Negative (Negative); Occult Blood-Urine 10 /ul (Negative); Protein-Dipstick Negative (Negative); Urine Bilirubin Dipstick Negative (Negative); Urine Clarity Sl. Cloudy (Clear); Urine Urobilinogen Normal (Normal)
[2019-04-16 18:10] LABS: AST(SGOT) 16 U/L (15-37); Alanine Aminotransfer ALT/SGPT 22 U/L (13-56); Albumin, Serum 3.6 g/dL (3.2-5.0); Alkaline Phosphatase 62 U/L (45-117); Anion Gap 9 (5-15); BUN 18 mg/dL (7-18); BUN/Creat Ratio 16.7 RATIO (10-20); Calcium,Total 9.2 mg/dL (8.5-10.1); Chloride 90 mmol/L (98-107); Creatinine, Serum 1.08 mg/dL (0.55-1.02); EST Glomerular Filtration Rate 52 mL/min (>60); Est Glom Filt Rate - Afr Amer 62 mL/min (>60); Estimated Creatinine Clearance 30.31 ml/min; Globulin 3.7 g/dL (2.2-4.2); Glucose 89 mg/dL (74-106); Potassium 4.3 mmol/L (3.5-5.1); Protein, Total 7.3 g/dL (6.4-8.2); Sodium Level 125 mmol/L (136-145)
[2019-04-16 18:34] LABS: Red Blood Cells-Urine 0-5 SEEN /hpf (0-5); Squamous Epithelial Cells - UA 0-5 SEEN /hpf (5-10); White Blood Cells 5-10 SEEN /hpf (0-5)
[2019-04-16 18:58] VITALS: BP 139/74; PULSE 82; RESP 16; TEMP 37.2; O2SAT 96
[2019-04-16] MEDS: Ceftriaxone 1 GM/50 ML BAG IV (18:58)
--- NOTE | 2019-04-16 19:11 | HP.PCM_ITS ---
History of Present Illness Date of Admission: 04/16/19 Chief Complaint: suprapubic pain, frequency of urination The patient is a 83 year old F with an extensive past medical history as listed. She was admitted through the ED on 04/16/2019 with a complaint of suprapubic pain, generalized weakness and urinary frequency as well as malaise. Patient says she was treated on outpatient basis with antibiotics for UTI for about 5 days and had to stop because she had thrush. She still was not feeling well so she went to see a PCP and had labs drawn 3 days ago. Lab results show she was having hyponatremia and hyperkalemia and so she was told to come to the ED. She denied any fever chills but admits to some nausea though she had of abated. She still does have some mild suprapubic. States she is changed her diet recently because she had cardiac catheterization with stent placement recently. Review of systems otherwise negative. In the ED, vitals were stable. Sodium was 125 per chemistry with creatinine of 1.08 and chloride of 90. CBC showed no white cell count with hemoglobin of 11.8. She has been admitted to be managed for hyponatremia and UTI. [] Past Medical History Past Medical History (Chronic Problems): Chronic Problems (Last Reviewed 02/26/19 @ 16:47 by Tejas Kim DO) CAD (coronary artery disease) (Chronic) Valvular heart disease (Chronic) S/P coronary artery stent placement (Chronic ~03/08/19) IVUS guided PCI/OZIEL to prox LAD 02/27/19; PTCA/OZIEL to prox Diag #1 and PCI/OZIEL to Mid LAD at bifurcation of diag to ensure no struts from diag stent protruded into LAD 03/08/19 Essential (primary) hypertension (Chronic) Pure hypercholesterolemia (Chronic) Atherosclerosis of [place] coronary artery of [place] heart without angina pectoris (Chronic) IVUS guided PCI/OZIEL to prox LAD 02/27/19; PTCA/OZIEL to prox Diag #1 and PCI/OZIEL to Mid LAD at bifurcation of diag to ensure no struts from diag stent protruded into LAD 03/08/19 Non-rheumatic tricuspid valve insufficiency (Chronic) Diastolic dysfunction (Chronic) Hx of congestive heart failure (Chronic) Nonrheumatic mitral valve insufficiency (Chronic) Nonrheumatic aortic valve insufficiency (Chronic) Nonrheumatic mitral valve prolapse (Chronic) CHF (congestive heart failure) (Chronic) Medical History: Medical History (Last Reviewed 02/26/19 @ 16:47 by Tejas Kim DO) Essential (primary) hypertension (Chronic) I10 Pure hypercholesterolemia (Chronic) E78.00 Atherosclerosis of [place] coronary artery of [place] heart without angina pectoris (Chronic) I25.10 IVUS guided PCI/OZIEL to prox LAD 02/27/19; PTCA/OZIEL to prox Diag #1 and PCI/OZIEL to Mid LAD at bifurcation of diag to ensure no struts from diag stent protruded into LAD 03/08/19 Non-rheumatic tricuspid valve insufficiency (Chronic) I36.1 Diastolic dysfunction (Chronic) I51.9 Hx of congestive heart failure (Chronic) Z86.79 Cataract (Resolved) H26.9 Nonrheumatic mitral valve insufficiency (Chronic) I34.0 Nonrheumatic aortic valve insufficiency (Chronic) I35.1 Nonrheumatic mitral valve prolapse (Chronic) I34.1 CHF (congestive heart failure) (Chronic) I50.9 Old myocardial infarction (Resolved) I25.2 NonST Elevation [place] Troponin I above reference range (Resolved) R79.89 Chest pain (Resolved) R07.9 GERD (gastroesophageal reflux disease) K21.9 Dyspnea R06.00 Allergies latex Allergy (Mild, Verified 04/16/19 17:07) Rash Penicillins [PCN] Allergy (Verified 04/16/19 17:07) Unknown Ejcqrll-Mpt-Alu Reductase Inhibitor Allergy (Verified 04/16/19 17:07) All blood cells low Home Medications: Ambulatory Orders Medication Instructions Recorded Aspirin [Aspirin, Baby] 81 mg PO DAILY@0800 12/13/15 Calcium Carbonate [Calcium] 1,200 mg PO LUNCH 12/13/15 Cholecalciferol (VIT D3) [Vitamin 1,000 unit PO LUNCH 12/13/15 D3] Levothyroxine [Synthroid] 25 mcg PO DAILY 12/13/15 colestipol 1 gram tablet 2 gm PO QHS tab 12/10/18 Polyethylene Glycol 3350 [Miralax] 17 gm PO DAILY PRN 03/07/19 Acetaminophen [Tylenol Tablet] 650 mg PO Q6H PRN PRN tab 03/11/19 carvedilol 3.125 mg tablet 3.125 mg PO BID #180 tab 03/25/19 losartan 25 mg tablet 25 mg PO DAILY #90 tab 03/25/19 ticagrelor 90 mg tablet 90 mg PO BID #180 tab 03/25/19 Surgical History: Surgical History (Last Updated 03/09/19 @ 08:30 by Emerita Cloud) S/P coronary artery stent placement (Chronic) Onset Date: ~03/08/19 Z95.5 IVUS guided PCI/OZIEL to prox LAD 02/27/19; PTCA/OZIEL to prox Diag #1 and PCI/OZIEL to Mid LAD at bifurcation of diag to ensure no struts from diag stent protruded into LAD 03/08/19 History of appendectomy Z90.49 History of dilatation and curettage Z98.890 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 Surgical History: angioplasty, appendectomy, cataract, dilatation and curettage, - - 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 Psychiatric History: No pertinent psych hx 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 Lives: Spouse/ Significant Other Smoking Status: Never smoker - *Family History Maternal Family History: Family History (Last Reviewed 02/26/19 @ 16:47 by Tejas Kim DO) Father CAD (coronary artery disease) Myocardial infarction Mother CVA (cerebral vascular accident) Brother Aneurysm Brother Heart disease Sister Afib Parkinson's disease History Items: Stroke Paternal Family History: Family History (Last Reviewed 02/26/19 @ 16:47 by Tejas Kim DO) Father CAD (coronary artery disease) Myocardial infarction Mother CVA (cerebral vascular accident) Brother Aneurysm Brother Heart disease Sister Afib Parkinson's disease History Items: Heart Disease Sibling Family History: Family History (Last Reviewed 02/26/19 @ 16:47 by Tejas Kim DO) Father CAD (coronary artery disease) Myocardial infarction Mother CVA (cerebral vascular accident) Brother Aneurysm Brother Heart disease Sister Afib Parkinson's disease History Items: Heart Disease, - - Aneurysm Review of Systems Constitutional: Reports: Chills, Fever, Malaise, Weakness, Fatigue. Denies: Anorexia, Night Sweats Eyes: Denies: Blurred vision HEENT: Denies: Head Aches, Sinus Congestion, Sinus Drainage Cardiovascular: Denies: Chest Pain, Palpitations Respiratory: Denies: Cough, Shortness of Breath, Shortness of breath at rest, Shortness of breath upon exertion, Sputum production Gastrointestinal: Reports: Abdominal Pain - Mild suprapubic pain., Nausea. Denies: Diarrhea, Dyspepsia, Vomiting Genitourinary: Reports: Frequency. Denies: Dysuria Musculoskeletal: Denies: Joint Pain, Joint Tenderness Skin: Denies: Rash, Wounds Neurological: Denies: Numbness, Tingling, Focal weakness Psychiatric: Denies: Anxiety, Depression, Homicidal Ideations, Suicidal Ideations Hematologic/ Lymphatic: Denies: Easy Bruising, Easy Bleeding VTE Information - Inpt Only VTE Present on Admission: No VTE Pharm Prophylaxis ordered?: Yes - Physical Exam General: Alert, Oriented x3, Cooperative, No apparent distress HEENT: Atraumatic, PERRLA, EOMI, Normocephalic Oral: Moist Mucosa Neck: Supple, No JVD, Negative Carotid Bruits Lungs: Clear to auscultation, Normal air movement, No rhonchi, No wheeze, No rales Cardiovascular: Regular rate, Regular Rhythm, Normal S1, Normal S2, No murmurs Abdomen: Bowel Sounds Present, Soft, Non-Distended, No Hepato-splenomegaly, - - minimal suprapubic tenderness Extremities: No clubbing, No cyanosis, No edema, Capillary Refill Less than 3 Seconds Skin: No rashes, No breakdown Musculoskeletal: No Tenderness to Palpation of Joints or Extremities Lymphatic: No Cervical, Supraclavicular, or Inguinal Adenopathy Neurological: Cranial nerves II-XII grossly intact, Neuro grossly intact, Motor Exam 5/5 strength throughout Psych/Mental Status: Normal Affect, Appropriate, Alert and oriented to time, place, person, mood and affect Vital Signs Temp Pulse Resp BP Pulse Ox 98.9 F 82 16 139/74 H 96 04/16/19 18:58 04/16/19 18:58 04/16/19 18:58 04/16/19 18:58 04/16/19 18:58 Oxygen Delivery Method Room Air Weight: 130 lb Body Mass Index (BMI) 24.5 Laboratory Tests Past 24 Hrs 04/16/19 04/16/19 04/16/19 17:34 17:34 18:00 WBC 5.2 RBC 4.08 L Hgb 11.8 L Hct 34.7 L MCV 85.0 MCH 28.9 MCHC 34.0 RDW Std Deviation 38.8 RDW Coeff of Young 12.6 Plt Count 251 MPV 8.3 Immature Gran % (Auto) 0.400 Neut % (Auto) 63.7 Lymph % (Auto) 16.8 L [place] % (Auto) 15.1 H Eos % (Auto) 3.6 Baso % (Auto) 0.4 Absolute Neuts (auto) 3.3 Absolute Lymphs (auto) 0.88 Nucleated RBC % 0 Sodium 125 L Potassium 4.3 Chloride 90 L Carbon Dioxide 26.0 Anion Gap 9 BUN 18 Creatinine 1.08 H Estim Creat Clear Calc 30.31 Est GFR (MDRD) Af Amer 62 Est GFR (MDRD) Non-Af 52 L BUN/Creatinine Ratio 16.7 Glucose 89 Calcium 9.2 Total Bilirubin 0.50 AST 16 ALT 22 Alkaline Phosphatase 62 Total Protein 7.3 Albumin 3.6 Globulin 3.7 Albumin/Globulin Ratio 1.0 Urine Color Yellow Urine Clarity Sl. Cloudy Urine pH 7.0 Ur Specific Mack 1.010 Urine Protein Negative Urine Glucose (UA) Normal Urine Ketones 5 H Urine Occult Blood 10 H Urine Nitrite Negative Urine Bilirubin Negative Urine Urobilinogen Normal Ur Leukocyte Esterase 100 H Urine RBC 0-5 SEEN Urine WBC 5-10 SEEN Ur Squamous Epith Cells 0-5 SEEN Urine Bacteria 0 SEEN Urine Mucus 0 SEEN Assessment/Plan All Active Problems (Last Reviewed 02/26/19 @ 16:47 by Tejas Kim DO) Abdominal pain (Resolved) NSTEMI (non-ST elevated myocardial infarction) (Resolved) Chest pain (Resolved) Elevated troponin (Acute) Unstable angina (Resolved) Cataract (Resolved) Old myocardial infarction (Resolved) Troponin I above reference range (Resolved) Chest pain (Resolved) 83-year-old female admitted for hyponatremia and UTI. 1. Acute hyponatremia, likely hypovolemic, hypotonic hyponatremia * Admit to PCU with telemetry * Sodium was 140 few weeks ago. States she has been watching her diet on account of having recently had a stent. * We will check serum osmolality. * Hydrate gently with IV fluid normal saline. Aim is to correct sodium by about 8 mmol/L over the next 24 hours. * 2. History of recent UTI * States he was recently treated for UTI for about 5 days but stopped taking the antibiotics because she developed thrush. She complains of very mild suprapubic pain now. * Labs showed no bacteria and only showed 5-10 WBCs with 100 leukocyte esterase. * Check urine cultures. * will hold off on antibiotics for now as she is not symptomatic of UTI and completed a 5 day course of antibiotics recently * 3. CAD status post stents: On aspirin, Brilinta and carvedilol as well as statin. 4. Hypothyroidism: On Synthroid. Will check TSH in light of the hyponatremia 5. Hypertension: Controlled. On losartan 25 mg daily and carvedilol 3.125 mg twice daily. DVT prophylaxis: lovenox Code Visit Inpatient E&M: 36031 Init Hosp L3
[2019-04-16 19:57] VITALS: PULSE 84; RESP 16; O2SAT 96
[2019-04-16 20:08] VITALS: BMI 23.7
[2019-04-16 20:16] VITALS: BP 152/76; PULSE 83; RESP 14; TEMP 36.6; O2SAT 99
[2019-04-16] MEDS: 0.9% Normal Saline 1,000 ML 125 ML IV (20:23)
[2019-04-16 20:35] VITALS: BMI 23.7
[2019-04-16 21:20] VITALS: PULSE 83; RESP 14; O2SAT 99
[2019-04-16] MEDS: TICAGRELOR 90 MG TABLET PO (21:26)
[2019-04-16] MEDS: Carvedilol 3.125 MG TABLET PO (21:26)
[2019-04-16 22:32] LABS: Anion Gap 5 (5-15); BUN 17 mg/dL (7-18); Calcium,Total 9.2 mg/dL (8.5-10.1); Chloride 97 mmol/L (98-107); EST Glomerular Filtration Rate 56 mL/min (>60); Est Glom Filt Rate - Afr Amer 68 mL/min (>60); Estimated Creatinine Clearance 32.73 ml/min; Glucose 156 mg/dL (74-106); Potassium 3.6 mmol/L (3.5-5.1); Sodium Level 130 mmol/L (136-145)
[2019-04-17] VITALS (10 sets, daily range): BP systolic 97–124; BP diastolic 58–69; PULSE 60–86; RESP 16–18; TEMP 36.3–36.9; O2SAT 96–99
[2019-04-17] MEDS: 0.9% Normal Saline 1,000 ML 125 ML IV (04:30)
[2019-04-17 04:36] LABS: Thyroid Stim Hormone (TSH) 2.32 uIU/mL (0.358-3.74)
[2019-04-17] MEDS: Levothyroxine 25 MCG TABLET PO (05:41)
[2019-04-17 06:51] LABS: Absolute Neutrophil Count 2.1 X10^3/uL (2.0-7.7); Basophil# 0.03 X10^3/uL; Basophil% 0.8 % (0-1); Eosinophil# 0.19 X10^3/uL; Hematocrit 33.2 % (37-47); Hemoglobin 11.2 g/dL (12.0-15.0); Lymphocyte % 21.1 % (19-41); Mean Corp Hgb Conc 33.7 g/dL (32-36); Mean Corpuscular Hgb 29.2 pg (27.0-32.0); Mean Corpuscular Volume 86.7 fL (81-99); Mean Platelet Vol. 8.5 fl (6.2-12.0); Monocyte# 0.65 X10^3/uL; Monocyte% 17.2 % (0-10); NRBC Flagged by Analyzer 0 % (0-5); Neutrophil # 2.11 X10^3/uL (2.7-7.7); Neutrophil % 55.6 % (47-70); Platelet Count 240 K/mm3 (150-450); RBC Distribution Width CV 12.9 % (11.6-14.6); RBC Distribution Width SD 40.9 fl (35.1-43.9); Red Blood Count 3.83 M/mm3 (4.2-5.4); White Blood Count 3.8 K/mm3 (4.4-11.0)
[2019-04-17 07:01] LABS: Anion Gap 5 (5-15); BUN 12 mg/dL (7-18); Calcium,Total 8.8 mg/dL (8.5-10.1); Chloride 105 mmol/L (98-107); Creatinine, Serum 0.92 mg/dL (0.55-1.02); EST Glomerular Filtration Rate 62 mL/min (>60); Est Glom Filt Rate - Afr Amer 75 mL/min (>60); Estimated Creatinine Clearance 35.58 ml/min; Glucose 84 mg/dL (74-106); Potassium 4.1 mmol/L (3.5-5.1); Sodium Level 135 mmol/L (136-145)
[2019-04-17] MEDS: Calcium Carbonate 500 MG Tablet PO (08:43)
[2019-04-17] MEDS: Aspirin 81 MG TAB.CHEW PO (08:43)
[2019-04-17] MEDS: Carvedilol 3.125 MG TABLET PO ×2 (09:20→20:58)
[2019-04-17] MEDS: Enoxaparin 40 MG/0.4 ML Syringe SC (09:20)
[2019-04-17] MEDS: TICAGRELOR 90 MG TABLET PO ×2 (09:21→20:58)
[2019-04-17] MEDS: Losartan Potassium 25 MG Tablet PO (09:22)
--- NOTE | 2019-04-17 10:04 | PN_ITS ---
Subjective: She is feeling much better today, her abdominal pain has essentially resolved Vitals/I&O's: Vital Signs Temp Pulse Resp BP Pulse Ox 98.5 F 86 16 119/63 97 04/17/19 09:09 04/17/19 09:09 04/17/19 09:09 04/17/19 09:09 04/17/19 09:09 Oxygen Delivery Method Room Air Weight: 125 lb 7.088 oz Body Mass Index (BMI) 23.7 Intake and Output for Last 24 Hours 04/15/19 04/16/19 04/17/19 23:59 23:59 23:59 Intake Total 1923 / 1923 Output Total 2500 / 2500 Balance -576 / -576 General: Alert, Oriented x3, Cooperative, No apparent distress HEENT: Atraumatic, PERRLA, EOMI, Normocephalic Oral: Moist Mucosa Neck: Supple, No JVD Lungs: Clear to auscultation, Normal air movement, No rhonchi, No wheeze, No rales, Diminished Cardiovascular: Regular rate, Regular Rhythm, Normal S1, Normal S2, No murmurs Abdomen: Soft, Non Tender, Non-Distended, No Hepato-splenomegaly Extremities: No edema, Capillary Refill Less than 3 Seconds Skin: No rashes, No breakdown Neurological: Neuro grossly intact, Sensory exam intact to light touch and pain Psych/Mental Status: Normal Affect, Appropriate Laboratory Results 04/16/19 17:34: WBC 5.2, RBC 4.08 L, Hgb 11.8 L, Hct 34.7 L, MCV 85.0, MCH 28.9, MCHC 34.0, RDW Std Deviation 38.8, RDW Coeff of Young 12.6, Plt Count 251, MPV 8.3, Immature Gran % (Auto) 0.400, Neut % (Auto) 63.7, Lymph % (Auto) 16.8 L, [place] % (Auto) 15.1 H, Eos % (Auto) 3.6, Baso % (Auto) 0.4, Absolute Neuts (auto) 3.3, Absolute Lymphs (auto) 0.88, Nucleated RBC % 0 04/16/19 17:34: Sodium 125 L, Potassium 4.3, Chloride 90 L, Carbon Dioxide 26.0, Anion Gap 9, BUN 18, Creatinine 1.08 H, Estim Creat Clear Calc 30.31, Est GFR (MDRD) Af Amer 62, Est GFR (MDRD) Non-Af 52 L, BUN/Creatinine Ratio 16.7, Glucose 89, Calcium 9.2, Total Bilirubin 0.50, AST 16, ALT 22, Alkaline Phosp hatase 62, Total Protein 7.3, Albumin 3.6, Globulin 3.7, Albumin/Globulin Ratio 1.0 04/16/19 18:00: Urine Color Yellow, Urine Clarity Sl. Cloudy, Urine pH 7.0, Ur Specific [place] 1.010, Urine Protein Negative, Urine Glucose (UA) Normal, Urine Ketones 5 H, Urine Occult Blood 10 H, Urine Nitrite Negative, Urine Bilirubin Negative, Urine Urobilinogen Normal, Ur Leukocyte Esterase 100 H, Urine RBC 0-5 SEEN, Urine WBC 5-10 SEEN, Ur Squamous Epith Cells 0-5 SEEN, Urine Bacteria 0 SEEN, Urine Mucus 0 SEEN 04/16/19 22:05: Sodium 130 L, Potassium 3.6, Chloride 97 L, Carbon Dioxide 28.0, Anion Gap 5, BUN 17, Creatinine 1.00, Estim Creat Clear Calc 32.73, Est GFR (MDRD) Af Amer 68, Est GFR (MDRD) Non-Af 56 L, BUN/Creatinine Ratio 17.0, Glucose 156 H, Calcium 9.2 04/17/19 03:27: TSH 2.32 04/17/19 06:26: WBC 3.8 L, RBC 3.83 L, Hgb 11.2 L, Hct 33.2 L, MCV 86.7, MCH 29.2, MCHC 33.7, RDW Std Deviation 40.9, RDW Coeff of Young 12.9, Plt Count 240, MPV 8.5, Immature Gran % (Auto) 0.300, Neut % (Auto) 55.6, Lymph % (Auto) 21.1, [place] % (Auto) 17.2 H, Eos % (Auto) 5.0, Baso % (Auto) 0.8, Absolute Neuts (auto) 2.1, Absolute Lymphs (auto) 0.80 L, Nucleated RBC % 0 04/17/19 06:26: Sodium 135 L, Potassium 4.1, Chloride 105, Carbon Dioxide 25.0, Anion Gap 5, BUN 12, Creatinine 0.92, Estim Creat Clear Calc 35.58, Est GFR (MDRD) Af Amer 75, Est GFR (MDRD) Non-Af 62, BUN/Creatinine Ratio 13.0, Glucose 84, Calcium 8.8 Current Medications Acetaminophen (Tylenol) 650 mg PO Q6H PRN PRN PRN Reason: Mild pain 1-3/Temp > 100.7 F Aspirin (Aspirin, Baby) 81 mg PO DAILY@0800 [facility] Last Admin: 04/17/19 08:43 Dose: 81 mg Documented by: [facility] Admin: 04/17/19 08:43 Dose: 500 mg Documented by: Carvedilol (Coreg) 3.125 mg PO BID [facility] Last Admin: 04/17/19 09:20 Dose: 3.125 mg Documented by: Cholecalciferol (Vitamin D) 1,000 unit PO DAILY [facility] Last Admin: 04/17/19 09:22 Dose: 1,000 unit Documented by: Colestipol HCl (Colestid Tablet) 2 gm PO BID [facility] Last Admin: 04/17/19 09:26 Dose: Not Given Documented by: Dextrose (D50w Syringe) 0 gm IV X1 PRN; Protocol PRN Reason: Hypoglycemia Enoxaparin Sodium (Lovenox) 40 mg SC DAILY@1000 [facility] Last Admin: 04/17/19 09:20 Dose: 40 mg Documented by: Glucagon () 1 mg IM .X1 PRN PRN Reason: Hypoglycemia Sodium Chloride () 1,000 mls @ 125 mls/hr IV .Q8H [facility] Stop: 04/17/19 12:02 Last Admin: 04/17/19 04:30 Dose: 125 mls/hr Documented by: Sodium Chloride () 250 mls @ 15 mls/hr IV .[id number] PRN PRN Reason: SALINE FLUSH Levothyroxine Sodium (Synthroid) 25 mcg PO MoTuWeThFr@0600 [facility] Last Admin: 04/17/19 05:41 Dose: 25 mcg Documented by: Losartan Potassium (Cozaar) 25 mg PO DAILY [facility] Last Admin: 04/17/19 09:22 Dose: 25 mg Documented by: Polyethylene Glycol (Miralax) 17 gm PO DAILY PRN PRN Reason: Constipation Sodium Chloride () 10 - 40 ml IV UD PRN PRN Reason: SALINE FLUSH Ticagrelor (Brilinta) 90 mg PO BID [facility] Last Admin: 04/17/19 09:21 Dose: 90 mg Documented by: Medical Necessity - Tobacco Use Smoking Status: Never smoker Assessment/Plan All Active Problems (Last Reviewed 02/26/19 @ 16:47 by Tejas Kim DO) Abdominal pain (Resolved) NSTEMI (non-ST elevated myocardial infarction) (Resolved) Chest pain (Resolved) Elevated troponin (Acute) Unstable angina (Resolved) Cataract (Resolved) Old myocardial infarction (Resolved) Troponin I above reference range (Resolved) Chest pain (Resolved) 1. Acute hyponatremia secondary to hypovolemia -Continue with IV fluids -Room is 135 today -She states that she was recently told to have no salt in her diet and she took that literally and has no salt in her diet, secondary to to recent cardiac stents -Readjusted her understanding that she can have a little bit of salt but not overdo it -We will monitor her sodium and plan for discharge tomorrow potentially 2. Recent history of a UTI -She was recently treated for UTI for about 5 days, she did stop her antibiotic because of thrush -UA is borderline without any bacteria on the urine sample -We will check a urine culture -Hold off of antibiotics for now -Need to see urology as an outpatient 3. CAD s/p stents/HLD/HTN -Stable -Continue with aspirin, Brilinta, and Coreg -Continue statin -Blood pressure stable, continue with losartan 4. Hypothyroidism -Stable -Continue with home Synthroid DVT: Lovenox Code Visit Inpatient E&M: 53179 Subs Hosp L2
--- NOTE | 2019-04-17 12:40 | CASEMGMT ---
RN CM Assessment Presentation: UTI Intro role of CM and purpose of RN CM assessment to patient in room. She is awake, alert and able to participate in assessment. Demographics, PCP and Pharmacy verified. Pt states she is independent, does not use DME and does not anticipate any care needs. PCP: Dr. Boyd Specialists: Dr. Bradshaw [facility] Pharmacy [facility]NO[facility]: [facility] Living Arrangements: Lives independently with her .States no care needs. Transportation: drives self DME: none HHC: none Patient DC goals: Home DC PLAN: Home Rajat RAVI RN ACM
[2019-04-18 00:01] VITALS: PULSE 73
[2019-04-18 02:00] VITALS: BP 128/78; PULSE 71; RESP 16; TEMP 36.8; O2SAT 99
[2019-04-18 04:00] VITALS: PULSE 61
[2019-04-18 06:33] LABS: Anion Gap 4 (5-15); BUN 18 mg/dL (7-18); BUN/Creat Ratio 17.3 RATIO (10-20); Chloride 105 mmol/L (98-107); Creatinine, Serum 1.04 mg/dL (0.55-1.02); EST Glomerular Filtration Rate 54 mL/min (>60); Est Glom Filt Rate - Afr Amer 65 mL/min (>60); Estimated Creatinine Clearance 31.47 ml/min; Glucose 84 mg/dL (74-106); Potassium 4.5 mmol/L (3.5-5.1); Sodium Level 137 mmol/L (136-145)
[2019-04-18 07:33] VITALS: BP 138/83; PULSE 66; RESP 16; TEMP 36.5; O2SAT 98
[2019-04-18 08:23] VITALS: PULSE 83
--- NOTE | 2019-04-18 08:46 | DCINST_ITS ---
You will use the following diet at home:: Cardiac Your food should be the consistency of: Regular Your liquids should be the consistency of: Regular/Thin Discharge Activity: Return to Normal Activity, No Restrictions Call your doctor if you observe: Fever of 101 or Higher, Shortness of breath, Dizziness, Fainting spells, Swelling in the ankles, Chest pain, Increased palpitations (irregular heartbeat) Allergies/Adverse Reactions: Allergies latex Allergy (Mild, Verified 04/16/19 17:07) Rash Penicillins [PCN] Allergy (Verified 04/16/19 17:07) Unknown Mhfgdbf-Yll-Eqp Reductase Inhibitor Allergy (Verified 04/16/19 17:07) All blood cells low Medications to take at Discharge Aspirin [Aspirin, Baby] 81 mg PO DAILY@0800 12/13/15 Calcium Carbonate [Calcium] 1,200 mg PO LUNCH 12/13/15 Cholecalciferol (VIT D3) [Vitamin D3] 1,000 unit PO LUNCH 12/13/15 Levothyroxine [Synthroid] 25 mcg PO DAILY 12/13/15 colestipol 1 gram tablet 2 gm PO QHS tab 12/10/18 Polyethylene Glycol 3350 [Miralax] 17 gm PO DAILY PRN 03/07/19 Acetaminophen [Tylenol Tablet] 650 mg PO Q6H PRN PRN tab 03/11/19 carvedilol 3.125 mg tablet 3.125 mg PO BID #180 tab 03/25/19 losartan 25 mg tablet 25 mg PO DAILY #90 tab 03/25/19 ticagrelor 90 mg tablet 90 mg PO BID #180 tab 03/25/19 Primary Care Physician: Dori Boyd DO [Primary Care Provider] - Please follow up with your Primary Care Physician in: 3-5 days Test Results: Test results from this visit will be discussed in further detail at your follow- up appointment, if applicable.
[2019-04-18] MEDS: Aspirin 81 MG TAB.CHEW PO (09:09)
[2019-04-18] MEDS: Losartan Potassium 25 MG Tablet PO (09:10)
[2019-04-18] MEDS: TICAGRELOR 90 MG TABLET PO (09:10)
[2019-04-18] MEDS: Calcium Carbonate 500 MG Tablet PO (09:10)
[2019-04-18] MEDS: Carvedilol 3.125 MG TABLET PO (09:10)
--- NOTE | 2019-04-18 10:24 | DS.PCM_ITS ---
Discharge Date and Diagnosis Date of Admission: 04/16/19 Date of Discharge: 04/18/19 - Secondary Discharge Diagnosis Chronic Problems (Last Reviewed 02/26/19 @ 16:47 by Tejas Kim DO) CAD (coronary artery disease) (Chronic) Valvular heart disease (Chronic) S/P coronary artery stent placement (Chronic ~03/08/19) IVUS guided PCI/OZIEL to prox LAD 02/27/19; PTCA/OZIEL to prox Diag #1 and PCI/OZIEL to Mid LAD at bifurcation of diag to ensure no struts from diag stent protruded into LAD 03/08/19 Essential (primary) hypertension (Chronic) Pure hypercholesterolemia (Chronic) Atherosclerosis of [place] coronary artery of [place] heart without angina pectoris (Chronic) IVUS guided PCI/OZIEL to prox LAD 02/27/19; PTCA/OZIEL to prox Diag #1 and PCI/OZIEL to Mid LAD at bifurcation of diag to ensure no struts from diag stent protruded into LAD 03/08/19 Non-rheumatic tricuspid valve insufficiency (Chronic) Diastolic dysfunction (Chronic) Hx of congestive heart failure (Chronic) Nonrheumatic mitral valve insufficiency (Chronic) Nonrheumatic aortic valve insufficiency (Chronic) Nonrheumatic mitral valve prolapse (Chronic) CHF (congestive heart failure) (Chronic) Hospital Course and Treatment Imaging Results: None Consults: None Operations: None Procedures: None Summary of Care Provided: Per HPI: The patient is a 83 year old F with an extensive past medical history as listed. She was admitted through the ED on 04/16/2019 with a complaint of suprapubic pain, generalized weakness and urinary frequency as well as malaise. Patient says she was treated on outpatient basis with antibiotics for UTI for about 5 days and had to stop because she had thrush. She still was not feeling well so she went to see a PCP and had labs drawn 3 days ago. Lab results show she was having hyponatremia and hyperkalemia and so she was told to come to the ED. She denied any fever chills but admits to some nausea though she had of abated. She still does have some mild suprapubic. States she is changed her diet recently because she had cardiac catheterization with stent placement recently. Review of systems otherwise negative. In the ED, vitals were stable. Sodium was 125 per chemistry with creatinine of 1.08 and chloride of 90. CBC showed no white cell count with hemoglobin of 11.8. She has been admitted to be managed for hyponatremia and UTI Hospital Course: 1. Acute hyponatremia secondary to hypovolemia/recent UTI history/CAD status post stent/HLD/PAT-75-doxr-old female with a history of coronary artery disease status post stents as well as a history of diastolic heart failure who presented with abnormal labs from her PCPs. She was found to be hypokalemic and hyponatremic as an outpatient, she presented with normal potassium but a sodium of 125. This was felt to be secondary to either hypovolemia or a lack of salt intake. She states that since she has had her stents placed a couple weeks ago she has been reticent to eat any salt and therefore his likely been eating is significantly less amount of salt than she otherwise normally would. Currently on the day of discharge her sodium is 137 and her creatinine is stable and at baseline. She would like to go home today she feels much better and has no abdominal pain. I discussed with her that she is to eat 1 to 2 g of sodium a day and to follow-up with her primary care physician as an outpatient, she understands and is in agreement with the plan. She is also to maintain her hydration as well. Of note she also had a history of a recent UTI and she was on antibiotics for, initially her suprapubic pain was felt to possibly be a UTI because on her UA her leukocyte esterase was 100 and she had 5-10 urine white blood cells without any bacteria. We held off on starting her on any antibiotics however a urine culture is pending and I will call her with the results if she needs to be on an antibiotic. 2. Her other medical diagnoses were evaluated and her home medications were continued where appropriate Objective: General: Alert, Oriented x3, Cooperative, No apparent distress HEENT: Atraumatic, PERRLA, EOMI, Normocephalic Oral: Moist Mucosa Neck: Supple, No JVD Lungs: Clear to auscultation, Normal air movement, No rhonchi, No wheeze, No rales, Diminished Cardiovascular: Regular rate, Regular Rhythm, Normal S1, Normal S2, No murmurs Abdomen: Soft, Non Tender, Non-Distended, No Hepato-splenomegaly Extremities: No edema, Capillary Refill Less than 3 Seconds Skin: No rashes, No breakdown Neurological: Neuro grossly intact, Sensory exam intact to light touch and pain Psych/Mental Status: Normal Affect, Appropriate - Physical Exam Vital Signs Temp Pulse Resp BP Pulse Ox 97.7 F L 83 16 138/83 H 98 04/18/19 07:33 04/18/19 08:23 04/18/19 07:33 04/18/19 07:33 04/18/19 07:33 Oxygen Delivery Method Room Air Weight: 125 lb 7.088 oz Body Mass Index (BMI) 23.7 Intake and Output for Last 24 Hours 04/16/19 04/17/19 04/18/19 23:59 23:59 23:59 Intake Total 3427 / 3827 610 / 610 Output Total 3500 / 4200 1200 / 1200 Balance -73 / -373 -590 / -590 Laboratory Tests Past 24 Hrs 04/18/19 06:05 Sodium 137 Potassium 4.5 Chloride 105 Carbon Dioxide 28.0 Anion Gap 4 L BUN 18 Creatinine 1.04 H Estim Creat Clear Calc 31.47 Est GFR (MDRD) Af Amer 65 Est GFR (MDRD) Non-Af 54 L BUN/Creatinine Ratio 17.3 Glucose 84 Calcium 9.0 Discharge Activity: Return to Normal Activity, No Restrictions Call your doctor if you observe: Fever of 101 or Higher, Shortness of breath, Dizziness, Fainting spells, Swelling in the ankles, Chest pain, Increased palpitations (irregular heartbeat) Home Medications: Medications to take at Discharge Aspirin [Aspirin, Baby] 81 mg PO DAILY@0800 12/13/15 Calcium Carbonate [Calcium] 1,200 mg PO LUNCH 12/13/15 Cholecalciferol (VIT D3) [Vitamin D3] 1,000 unit PO LUNCH 12/13/15 Levothyroxine [Synthroid] 25 mcg PO DAILY 12/13/15 colestipol 1 gram tablet 2 gm PO QHS tab 12/10/18 Polyethylene Glycol 3350 [Miralax] 17 gm PO DAILY PRN 03/07/19 Acetaminophen [Tylenol Tablet] 650 mg PO Q6H PRN PRN tab 03/11/19 carvedilol 3.125 mg tablet 3.125 mg PO BID #180 tab 03/25/19 losartan 25 mg tablet 25 mg PO DAILY #90 tab 03/25/19 ticagrelor 90 mg tablet 90 mg PO BID #180 tab 03/25/19 Primary Care Physician: Dori Boyd DO [Primary Care Provider] - Please follow up with your Primary Care Physician in: 3-5 days Disposition: Home Minutes spent on discharge:: 35 Patient Condition:: Stable Medical Necessity - Tobacco Use Smoking Status: Never smoker Meaningful Use Info Meaningful Use Diagnoses (Choose all that apply): None applicable Code Visit Inpatient E&M: 14321 Disch Hosp
--- NOTE | 2019-04-20 15:25 | CASEMGMT ---
HARMEET JI DC PHONE CALL DC DATE: 04/08/19 DC Disposition: Home Diagnosis on Discharge: Hyponatremia LACE/STRATA: 07/05 Intro role of CM to pt's via phone. Pt was not home. states pt is doing well, no questions re: prescriptions or follow up. HARMEET JI offered to leave number for call back, but states she is doing fine. Rajat CUMMINSN HARMEET ACM
== END 2019-04-18 10:45 | disposition home or self-care (01) | DRG 641 ==
LOC: ED 17:41 → MS3 19:30
PROVIDERS: Admitting Provider Student in an Organized Health Care Education/Training Program; Emergency Provider Emergency Medicine; Family Provider Internal Medicine; PCP Internal Medicine; Visit Provider Family Medicine
DX: E87.1 Hypo-osmolality and hyponatremia (principal); E86.1 Hypovolemia; I11.0 Hypertensive heart disease with heart failure; I50.32 Chronic diastolic (congestive) heart failure; I25.10 Atherosclerotic heart disease of native coronary artery without angina pectoris; I34.0 Nonrheumatic mitral (valve) insufficiency; I34.1 Nonrheumatic mitral (valve) prolapse; I35.1 Nonrheumatic aortic (valve) insufficiency; I36.1 Nonrheumatic tricuspid (valve) insufficiency; R35.0 Frequency of micturition; E03.9 Hypothyroidism, unspecified; E78.00 Pure hypercholesterolemia, unspecified; K21.9 Gastro-esophageal reflux disease without esophagitis; I25.2 Old myocardial infarction; Z79.82 Long term (current) use of aspirin; Z79.899 Other long term (current) drug therapy; Z88.0 Allergy status to penicillin; Z87.440 Personal history of urinary (tract) infections; Z95.5 Presence of coronary angioplasty implant and graft
CPT/HCPCS: 36415; 80048; 80053; 81001; 84443; 85025; 87086; 87088; 87186; 97162; 97166; 99285; J7030; J7040; J7050

== ENCOUNTER 2019-05-01 14:15 | Outpatient (RCR) | payer MEDICARE, SELFPAY ==
[2019-02-27 14:50] VITALS: BMI 22.1
[2019-03-31 10:23] VITALS: BMI 25.1
--- NOTE | 2019-05-01 09:33 | PCM.CR.ITP ---
Exercise - 30-day Assessment - Visit Date of Eval: 05/01/19 Session #:: 8 - Patient missed 5 session this 30-days - Stages of Change Stages of Change:: Action - Physician Prescribed Exercise Modalities: Treadmill, Biodyne, NuStep, SciFit Frequency (days/week): 3 Duration (Minutes):: 30-45 Intensity: 60-80% age predicted maximum heart rate reserve METs - Progression: 0.5-1.0 MET, RPE 11-14 WEEK: 3.5 up from 2.5 METs Target Heart Rate:: 90-115 - Hypertension Resting Blood Pressure:: 118/52 Peak Exercise Blood Pressure:: 128/82 Medication Changes:: No - Intervention Home Exercise/Activity Goal:: Sitting Time <3 hrs/day - Education Goals:: Warm-up, RPE MANDY Scale, S/S, Safe Exercise, Self-Monitoring - Exercise Program Goals Exercise Program Goals: Aerobic Activity >30 min Nutrition - 30-Day Assessment - Program Goals Nutrition Program Goals: LDL <70. Total Cholesterol <200. HDL >45. Triglycerides <150. HgbA1C <7%. BMI <25 - Visit Date of Eval: 05/01/19 - Stages of Change Stages of Change:: Action - Lipids Has the patient seen the dietitian?: No - Diabetes Diabetes:: No - Weight Management Weight:: 126 lb 8 oz - down from 133 - Intervention Referral to dietitian:: No Referral to Diabetic Clinic:: No Will attend diet classes:: Yes - Education Attended class for:: Healthy eating Tobacco - Initial Assessment - Program Goals Tobacco Program Goals: Complete smoking cessation. Attend education classes. Improve Knowledge Test score - Learning Barriers Learning Barriers: Vision - REQUIRES GLASSES FOR READING, Ready to Learn Tobacco - 30-Day Assessment - Program Goals Tobacco Program Goals: Complete smoking cessation. Attend education classes. Improve Knowledge Test score - Stage of Change Stages of Change:: Action - Learning Barriers Learning Barriers: Participates in education - Family Support Do you have family support?: Yes - Tobacco Use Tobacco Use: Non-smoker Do you use smokeless tobacco?: No - Intervention Smoking Cessation Referral:: No Education Schedule Given:: Yes - Education Attended class for:: Treating Heart Disease, How The Heart Works, What it means to have Heart Disease, How Coronary Artery Disease is Diagnosed, Heart Procedures Psychosocial - Initial Assess - Target Goals Target Goals: Assess presence or absence of depression. Using a valid screening tool, maximizes coping skills. Positive support system - Psychosocial Test Tool Used:: HANDS Depression Questionnaire - Assistive Devices Fall Risk Assessed:: Yes Psychosocial - 30-Day Assess - Target Goals Target Goals: Assess presence or absence of depression. Using a valid screening tool, maximizes coping skills. Positive support system - Stages of Change Stages of Change:: Action - Psychosocial Test Tool Used:: HANDS Depression Questionnaire - Intervention PS - Interventions: Yes Attend Stress Management Classes, No Referral to Mental Health, No Referral to [facility] Case Management, No Referral to Physician, No Uses Stress Management Skills - Education Attended classes for:: Coping techniques, Signs & symptoms of depression, Stress management, Relaxation techniques - Patient/Program Goal Preventative Medication(s):: Aspirin, JORGE LUIS inhibitor, Clopidogrel, Beta orion, Statin/lipid - Assistive Devices Assistive Devices:: None Fall Risk Assessed:: Yes Patient Health Questionnaire 30-Day Re-eval Assessment 1. Little interest or pleasure in doing things: More than half the days 2. Feeling down, depressed, or hopeless: More than half the days 3. Trouble falling or staying asleep, or sleeping too much: More than half the days 4. Feeling tired or having little energy: More than half the days 5. Poor appetite or overeating: Several days 6. Feeling bad about yourself -- or that you are a failure or have let yourself or your family down: Several days 7. Trouble concentrating on things, such as reading the newspaper or watching television: More than half the days 8. Moving or speaking so slowly that other people could have noticed. Or the opposite - being so fidgety or restless that you have been moving around a lot more than usual: Several days 9. Thoughts that you would be better off , or of hurting yourself in some way: Not at all - Patient remains at mild risk of depression and could benefit from medication or counseling. Total Score: 13 Self-Efficacy 30-Day Re-eval Assessment We would like to know how confident you are in doing certain activities. Please select your confidence level for:: Select your confidence level for the following using the scale 1-10 where 1 is not at all confident and 10 is totally confident. Your score is the average of all 6 responses. Fatigue: How confident are you that you can keep the fatigue caused by your disease from interfering with the things you want to do? Select Number: 8 Physical Discomfort or Pain: How confident are you that you can keep the physical discomfort or pain of your disease from interfering with the things you want to do? Select Number: 8 Emotional Distress: How confident are you that you can keep the emotional distress caused by your disease from interfering with the things you want to do? Select Number: 8 Other Symptoms or Health Problems: How confident are you that you can keep other symptoms or health problems from interfering with the things you want to do? Select Number: 8 Different Tasks and Activities: How confident are you that you can do the different tasks and activities needed to manage your health condition so as to reduce your need to see a doctor? Select Number: 8 Medication: How confident are you that you can do things other than just taking medication to reduce how much your illness affects your everyday life? Select Number: 8 Total Score:: 8
[2019-05-01 09:39] VITALS: BP 118/52; BP 128/82
== END 2019-05-02 23:59 ==
LOC: CR 14:15
PROVIDERS: Family Provider Internal Medicine; PCP Internal Medicine; Referring Provider Internal Medicine Cardiovascular Disease; Visit Provider Internal Medicine Cardiovascular Disease
DX: I25.10 Atherosclerotic heart disease of native coronary artery without angina pectoris (principal); Z95.5 Presence of coronary angioplasty implant and graft
CPT/HCPCS: 93798

== ENCOUNTER 2019-05-02 10:01 | Emergency (ER) | payer MEDICARE, SELFPAY ==
[2019-02-27 14:50] VITALS: BMI 22.1
[2019-05-02 10:02] VITALS: BP 135/74; PULSE 88; RESP 19; TEMP 36.2; O2SAT 99; BMI 23.6
[2019-05-02] MEDS: Ondansetron 4 MG/2 ML Vial IV (10:40)
[2019-05-02 10:45] LABS: Absolute Lymphocyte Count 0.07 X10^3/uL (0.83-4.51); Absolute Neutrophil Count 7.5 X10^3/uL (2.0-7.7); Basophil# 0.01 X10^3/uL; Basophil% 0.1 % (0-1); Eosinophil# 0.03 X10^3/uL; Eosinophils% 0.4 % (0-5); Hematocrit 37.3 % (37-47); Hemoglobin 12.7 g/dL (12.0-15.0); Lymphocyte # 0.07 X10^3/ul (4.0); Lymphocyte % 0.9 % (19-41); Mean Corpuscular Hgb 29.4 pg (27.0-32.0); Mean Corpuscular Volume 86.3 fL (81-99); Mean Platelet Vol. 8.1 fl (6.2-12.0); Monocyte# 0.29 X10^3/uL; Monocyte% 3.7 % (0-10); NRBC Flagged by Analyzer 0 % (0-5); Neutrophil # 7.51 X10^3/uL (2.7-7.7); Neutrophil % 94.5 % (47-70); POSITIVE DIFFERENTIAL YES; Platelet Count 171 K/mm3 (150-450); RBC Distribution Width CV 13.2 % (11.6-14.6); RBC Distribution Width SD 41.1 fl (35.1-43.9); Red Blood Count 4.32 M/mm3 (4.2-5.4); White Blood Count 7.9 K/mm3 (4.4-11.0)
[2019-05-02 10:46] LABS: Differential Indicated SCAN CRITERIA MET
[2019-05-02 11:02] LABS: Anion Gap 5 (5-15); BUN 20 mg/dL (7-18); BUN/Creat Ratio 17.9 RATIO (10-20); Calcium,Total 9.5 mg/dL (8.5-10.1); Chloride 97 mmol/L (98-107); Creatinine, Serum 1.12 mg/dL (0.55-1.02); EST Glomerular Filtration Rate 49 mL/min (>60); Est Glom Filt Rate - Afr Amer 60 mL/min (>60); Estimated Creatinine Clearance 29.22 ml/min; Glucose 109 mg/dL (74-106); Potassium 4.3 mmol/L (3.5-5.1); Sodium Level 129 mmol/L (136-145)
--- NOTE | 2019-05-02 11:36 | ED.DCSUM_ITS ---
History of Present Illness Informant: Patient, Significant Other Onset: Days - 3 days Context: Gradual Onset Timing: Continuous Quality: Feels fatigued and tired with nausea and vomiting Location: Diffuse Current Severity: Severe Maximum Severity: Severe Worsened by: Food and drink Relieved by: Nothing Associated Symptoms: Nausea, vomiting, malaise, fatigue Narrative: 83-year-old female with a history of coronary artery disease presents to the emergency department with abnormal labs. Patient has an abnormally low sodium level but she does not know the number value. She was admitted for similar symptoms earlier this month. She also had a urinary tract infection at that time. She was doing well after discharge from the hospital. However over the past several days she has felt tired and weak with nausea and vomiting. Has been having difficulty eating and drinking. Saw her primary care yesterday. Started on Macrobid for urinary tract infection. She feels worse today and vomited and was unable to keep down her antibiotic. Also called and told her sodium level is low. No chest pain or shortness of breath. No fevers. No hematemesis or coffee-ground emesis. No diarrhea melena or hematochezia. She has been having urinary urgency and frequency. No dysuria or hematuria. 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 Smoking Status: Never smoker - Family History Maternal Family History: Family History (Last Reviewed 02/26/19 @ 16:47 by Tejas Kim DO) Father CAD (coronary artery disease) Myocardial infarction Mother CVA (cerebral vascular accident) Brother Aneurysm Brother Heart disease Sister Afib Parkinson's disease Family History: Reports: Stroke Paternal Family History: Family History (Last Reviewed 02/26/19 @ 16:47 by Tejas Kim DO) Father CAD (coronary artery disease) Myocardial infarction Mother CVA (cerebral vascular accident) Brother Aneurysm Brother Heart disease Sister Afib Parkinson's disease Family History: Reports: Heart Disease Sibling Family History: Family History (Last Reviewed 02/26/19 @ 16:47 by Tejas Kim DO) Father CAD (coronary artery disease) Myocardial infarction Mother CVA (cerebral vascular accident) Brother Aneurysm Brother Heart disease Sister Afib Parkinson's disease Family History: Reports: Heart Disease, - - Aneurysm <Jesus Rose - Last Filed: 05/02/19 12:46> - Family History Maternal Family History: Family History (Last Reviewed 02/26/19 @ 16:47 by Tejas Kim DO) Father CAD (coronary artery disease) Myocardial infarction Mother CVA (cerebral vascular accident) Brother Aneurysm Brother Heart disease Sister Afib Parkinson's disease Paternal Family History: Family History (Last Reviewed 02/26/19 @ 16:47 by Tejas Kim DO) Father CAD (coronary artery disease) Myocardial infarction Mother CVA (cerebral vascular accident) Brother Aneurysm Brother Heart disease Sister Afib Parkinson's disease Sibling Family History: Family History (Last Reviewed 02/26/19 @ 16:47 by Tejas Kim DO) Father CAD (coronary artery disease) Myocardial infarction Mother CVA (cerebral vascular accident) Brother Aneurysm Brother Heart disease Sister Afib Parkinson's disease <Андрей Cabello - Last Filed: 05/02/19 17:10> - Allergies and Home Meds Allergies/Adverse Reactions: Allergies latex Allergy (Mild, Verified 05/02/19 10:02) Rash Penicillins [PCN] Allergy (Verified 05/02/19 10:02) Unknown [id number] Reductase Inhibitor Allergy (Verified 05/02/19 10:02) All blood cells low Sulfa (Sulfonamide Antibiotics) Adverse Reaction (Verified 05/02/19 10:02) Nausea/Vom/Diarrhea Primary Care Physician: Dori Boyd DO [Primary Care Provider] - Review of Systems All systems negative except as indicated General: Reports: Malaise Gastrointestinal: Reports: Nausea, Vomiting <Jesus Rose - Last Filed: 05/02/19 12:46> Physical Exam Vital Signs/Narrative: Vital Signs Temp Pulse Resp BP Pulse Ox 05/02/19 10:02 97.1 F L 88 19 H 135/74 H 99 Inital Vital Signs reviewed: Yes General: Well nourished, Well developed, No Acute Distress Head: Normocephalic, Atraumatic Eyes: Perrl, EOMI ENT: Moist mucous membranes Neck: Supple, Nontender, No lymphadenopathy Cardiovascular: Regular rate, Regular rhythm, No murmurs Respiratory: No distress, CTA bilaterally, Chest nontender Abdomen: Soft, Nontender, Nondistended, Normal bowel sounds, No masses Back: Nontender, Normal Inspection Extremities: Nontender, No edema Skin: Normal color, No rash Neurological: Alert, Oriented x3 <Jesus Rose - Last Filed: 05/02/19 12:46> Diagnostic/Tx/Re-eval - Rhythm Strip Rhythm Strip: Sinus Rhythm Rate: 88 Ectopy: None - Medical Decision Making Patient was given IV fluids, IV Zofran. CBC was unremarkable. Basic metabolic panel was remarkable for a sodium of 129. Her renal function is at baseline. Her urinalysis is negative for infection. At this time we discussed with the patient that she can discontinue her Macrobid as she does not have a urinary tract infection. It seems like that is the reason she has had an upset stomach and vomiting. She is very sensitive to antibiotics. After fluids and Zofran s he feels improved. Her repeat abdominal exam is soft and nontender. She is able to tolerate by mouth. We will discharge her home with a prescription for Zofran. She was advised to follow-up next week with her family doctor as scheduled on Saturday or she will return here to the emergency department for worsening symptoms which we discussed. <Jesus Rose - Last Filed: 05/02/19 12:46> - Medical Decision Making I supervised the PA and have performed my own pertinent history and physical. Results and treatment plan were discussed. HPI: Patient reports that she has not felt well since having heart stents placed a couple of months ago. She states that this morning she was nauseated and vomited multiple times. She denies abdominal pain at this time. No fever chills. No chest pain or shortness of breath. PE: Cardiovascular exam shows regular rate and rhythm with no murmur. Respiratory exam is clear to station bilaterally. Abdominal exam is benign: Soft, nontender, nondistended. Normal bowel sounds. Emergency Department course: Patient was given a liter of normal saline. She is given Zofran IV. She is resting comfortably. She has not vomited while here. Had a prolonged discussion with her about the possibility of a UTI. She was discharged from the hospital on April 16. That time she had a urine culture that showed E. coli. She was placed on Bactrim for 1 week. However, she only took 4 days of this. She reports that she was placed on Macrobid yesterday, but a urinalysis was not obtained prior to this. The urinalysis today does not appear to be infected. Treatment Plan: Patient reports that she does not do well with antibiotics and does not tolerate Macrobid well. I did discuss to her that she could have potentially had her UTI treated with the 4 days of Bactrim that she took. I think that the best plan is to hold antibiotics while we wait for this urine culture. She will be discharged with Zofran. Instructed follow-up with her primary care physician in 3 days for another exam. Return to the emergency department for any worsening symptoms. This note was generated with [employer] dictation software. It may contain incorrect words, spelling, and punctuation that were not noted in review of the chart prior to signing. <Андрей Cabello - Last Filed: 05/02/19 17:10> ED Disposition <Jesus Rose - Last Filed: 05/02/19 12:46> <Андрей Cabello - Last Filed: 05/02/19 17:10> - Plan for ED Patient: Disposition: Home or Assisted Living Diagnosis: Nausea and vomiting, Malaise and fatigue, Hyponatremia Prescriptions: Ondansetron [Zofran Odt] 4 mg PO Q8H PRN PRN #10 tab PRN Reason: Nausea Prescription Printed Referrals: Dori Boyd DO [Primary Care Provider] -
[2019-05-02 11:37] LABS: Bacteria 0 SEEN /hpf (None Seen); Mucous, Urine 0 SEEN /hpf (<or=2+); Red Blood Cells-Urine 0 SEEN /hpf (0-5)
[2019-05-02 11:38] LABS: Color, Urine Yellow (Yellow); Glucose, Dipstick Normal (Normal); Ketone-Dipstick 50 mg/dl (Negative); Leukocyte Esterase-Dipstick 100 /ul (Negative); Nitrite-Dipstick Negative (Negative); Occult Blood-Urine 25 /ul (Negative); Protein-Dipstick 30 mg/dl (Negative); Urine Bilirubin Dipstick Negative (Negative); Urine Clarity Clear (Clear); Urine Urobilinogen Normal (Normal)
[2019-05-02 11:46] LABS: Squamous Epithelial Cells - UA 0-5 SEEN /hpf (5-10); White Blood Cells 0-5 SEEN /hpf (0-5)
[2019-05-02 12:06] VITALS: BP 131/77; PULSE 97; RESP 15; O2SAT 96
[2019-05-02 12:15] VITALS: BP 127/70; PULSE 100; RESP 14; O2SAT 97
[2019-05-02 12:50] VITALS: BP 121/64; PULSE 100; RESP 18; O2SAT 96
== END 2019-05-02 12:55 | disposition home or self-care (01) ==
PROVIDERS: Emergency Provider Physician Assistant Medical; Family Provider Internal Medicine; PCP Internal Medicine
DX: E87.1 Hypo-osmolality and hyponatremia (principal); N39.0 Urinary tract infection, site not specified; R11.2 Nausea with vomiting, unspecified; R53.81 Other malaise; I25.10 Atherosclerotic heart disease of native coronary artery without angina pectoris; Z79.82 Long term (current) use of aspirin; Z79.899 Other long term (current) drug therapy; Z88.0 Allergy status to penicillin; Z88.2 Allergy status to sulfonamides; Z88.8 Allergy status to other drugs, medicaments and biological substances; Z91.040 Latex allergy status; Z95.5 Presence of coronary angioplasty implant and graft
CPT/HCPCS: 80048; 81001; 85025; 96361; 96374; 99283; J7030; J2405

== ENCOUNTER 2019-05-29 14:15 | Outpatient (RCR) | payer MEDICARE, SELFPAY ==
[2019-02-27 14:50] VITALS: BMI 22.1
[2019-05-03 00:11] VITALS: BP 118/52; BP 128/82
[2019-05-06 15:20] VITALS: BMI 23.8
--- NOTE | 2019-06-01 10:36 | PCM.CR.ITP ---
Exercise - 60-Day Assessment - Visit Date of Eval: 05/29/19 Session #:: 18 - patient has missed 6 scheduled sessions - Stages of Change Stages of Change:: Action - Physician Prescribed Exercise Modalities: Treadmill, Airdyne, NuStep Frequency (days/week): 3 Duration (Minutes):: 30-45 Intensity: 60-80% age predicted maximum heart rate reserve METs - Progression: 0.5-1.0 MET, RPE 11-14 WEEK: 3.5 Target Heart Rate:: 90-115 max HR 104 - Hypertension Resting Blood Pressure:: 130/60 Peak Exercise Blood Pressure:: 144/62 Medication Changes:: No - Intervention Home Exercise/Activity Goal:: Moderate Exercise 30 min/day x 5 days/wk - Education Goals:: Warm-up, RPE MANYD Scale, S/S, Safe Exercise, Self-Monitoring - Exercise Program Goals Exercise Program Goals: Aerobic Activity >30 min Nutrition - 60-Day Assessment - Program Goals Nutrition Program Goals: LDL <70. Total Cholesterol <200. HDL >45. Triglycerides <150. HgbA1C <7%. BMI <25 - Visit Date of Eval: 05/29/19 - Stages of Change Stages of Change:: Action - Lipids Has the patient seen the dietitian?: No - Diabetes Diabetes:: No Insulin: No Non-Insulin Dependent?: No - Weight Management Weight:: 123 lb 8 oz - down from 130 - Intervention Referral to dietitian:: No Referral to Diabetic Clinic:: No Will attend diet classes:: Yes - Education Attended class for:: Healthy eating Tobacco - Initial Assessment - Program Goals Tobacco Program Goals: Complete smoking cessation. Attend education classes. Improve Knowledge Test score - Learning Barriers Learning Barriers: Vision - REQUIRES GLASSES FOR READING, Ready to Learn Tobacco - 60-Day Assessment - Program Goals Tobacco Program Goals: Complete smoking cessation. Attend education classes. Improve Knowledge Test score - Stage of Change Stages of Change:: Action - Learning Barriers Learning Barriers: Participates in education - Family Support Do you have family support?: Yes - Tobacco Use Tobacco Use: Non-smoker Do you use smokeless tobacco?: No - Intervention Smoking Cessation Referral:: No Individual Education/Counseling:: No Education Schedule Given:: Yes - Education Attended class for:: Treating Heart Disease, How The Heart Works, What it means to have Heart Disease, How Coronary Artery Disease is Diagnosed, Heart Procedures, What Heart Medications Do, Risk Factors & Modifications, Living an Active Life, Nutrition, Emotions & Heart Disease, Stress Management & Relaxation, Sleep Disorders & Heart Disease Psychosocial - Initial Assess - Target Goals Target Goals: Assess presence or absence of depression. Using a valid screening tool, maximizes coping skills. Positive support system - Psychosocial Test Tool Used:: HANDS Depression Questionnaire - Assistive Devices Fall Risk Assessed:: Yes Psychosocial - 60-Day Assess - Target Goals Target Goals: Assess presence or absence of depression. Using a valid screening tool, maximizes coping skills. Positive support system - Stages of Change Stages of Change:: Action - Psychosocial Test Tool Used:: HANDS Depression Questionnaire - Intervention PS - Interventions: Yes Attend Stress Management Classes, No Referral to Mental Health, No Referral to [facility] Case Management, No Referral to Physician, No Uses Stress Management Skills - Education Attended classes for:: Coping techniques, Signs & symptoms of depression, Stress management, Relaxation techniques - Patient/Program Goal Preventative Medication(s):: Aspirin, JORG ELUIS inhibitor, Clopidogrel, Beta orion, Statin/lipid - Assistive Devices Assistive Devices:: None Fall Risk Assessed:: Yes Patient Health Questionnaire 60-Day Re-eval Assessment 1. Little interest or pleasure in doing things: Several days 2. Feeling down, depressed, or hopeless: Several days 3. Trouble falling or staying asleep, or sleeping too much: Several days 4. Feeling tired or having little energy: Not at all 5. Poor appetite or overeating: Not at all 6. Feeling bad about yourself -- or that you are a failure or have let yourself or your family down: Not at all 7. Trouble concentrating on things, such as reading the newspaper or watching television: Several days 8. Moving or speaking so slowly that other people could have noticed. Or the opposite - being so fidgety or restless that you have been moving around a lot more than usual: Not at all 9. Thoughts that you would be better off , or of hurting yourself in some way: Not at all How difficult have these problems made it for you to do your work, take care of things at home, or get along with other people?: Not difficult at all Total Score: 4 Self-Efficacy 60-Day Re-eval Assessment We would like to know how confident you are in doing certain activities. Please select your confidence level for:: Select your confidence level for the following using the scale 1-10 where 1 is not at all confident and 10 is totally confident. Your score is the average of all 6 responses. Fatigue: How confident are you that you can keep the fatigue caused by your disease from interfering with the things you want to do? Select Number: 9 Physical Discomfort or Pain: How confident are you that you can keep the physical discomfort or pain of your disease from interfering with the things you want to do? Select Number: 10 Emotional Distress: How confident are you that you can keep the emotional distress caused by your disease from interfering with the things you want to do? Select Number: 9 Other Symptoms or Health Problems: How confident are you that you can keep other symptoms or health problems from interfering with the things you want to do? Select Number: 9 Different Tasks and Activities: How confident are you that you can do the different tasks and activities needed to manage your health condition so as to reduce your need to see a doctor? Select Number: 10 Medication: How confident are you that you can do things other than just taking medication to reduce how much your illness affects your everyday life? Select Number: 10 Total Score:: 9
[2019-06-01 10:42] VITALS: BP 130/60; BP 144/62
== END 2019-06-01 23:59 ==
LOC: CR 14:15
PROVIDERS: Family Provider Internal Medicine; PCP Internal Medicine; Referring Provider Internal Medicine Cardiovascular Disease; Visit Provider Internal Medicine Cardiovascular Disease
DX: I25.10 Atherosclerotic heart disease of native coronary artery without angina pectoris (principal); Z95.5 Presence of coronary angioplasty implant and graft
CPT/HCPCS: 93798

== ENCOUNTER → 2019-06-11 14:00 | Outpatient (CLI) | payer MEDICARE, SELFPAY ==
[2019-02-27 14:50] VITALS: BMI 22.1
[2019-05-06 15:20] VITALS: BMI 23.8
[2019-06-04 14:30] VITALS: BMI 23.0
--- NOTE | 2019-06-11 14:06 | US_ITS ---
STUDY: RENAL ULTRASOUND - COMPLETE REASON FOR EXAM: Female, 84 years old. Recurrent UTI TECHNIQUE: Ultrasound evaluation of the kidneys was performed with real-time and static noble-scale imaging. COMPARISON: CT scan 03/10/2019. FINDINGS: RIGHT KIDNEY: Normal location of the right kidney, which is normal in size. The right kidney measures 10.3 x 3.8 x 4.9 cm. There is a normal cortex of the right kidney. The renal cortex measures 1.8 cm. Several cysts are seen, measuring as much as 1.6 cm. There are no right renal calculi. There is no right hydronephrosis. DISTAL RIGHT URETER: There is non-visualization of the distal right ureter. There is no demonstrated right ureterovesical junction calculus. There is no demonstrated right ureteral jet. LEFT KIDNEY: Normal location of the left kidney, which is normal in size. The left kidney measures 9.7 x 3.9 x 5.4 cm. There is a normal cortex of the left kidney. The renal cortex measures 1.4 cm. Several cysts are seen measuring as much as 3.1 cm There are no left renal calculi. There is no left hydronephrosis. DISTAL LEFT URETER: There is non-visualization of the distal left ureter. There is no demonstrated left ureterovesical junction calculus. There is a visualized left ureteral jet. BLADDER: There is no definite bladder wall thickening given the nondistended nature of the bladder. There is no demonstrated mass within the urinary bladder. There are no demonstrated bladder calculi. US/Kidney and Bladder IMPRESSION: No acute abnormality of the kidneys. Numerous bilateral renal cysts. Electronically Signed: Tarik Aparicio MD at 22:40 EDT , Service support ,
== END ==
PROVIDERS: Family Provider Internal Medicine; PCP Internal Medicine; Referring Provider Urology; Visit Provider Urology
DX: N39.0 Urinary tract infection, site not specified (principal)
CPT/HCPCS: 76770

== ENCOUNTER 2019-07-01 14:15 | Outpatient (RCR) | payer MEDICARE, SELFPAY ==
[2019-02-27 14:50] VITALS: BMI 22.1
[2019-05-06 15:20] VITALS: BMI 23.8
[2019-06-02 00:19] VITALS: BP 130/60; BP 144/62
--- NOTE | 2019-06-29 08:04 | CR.ITP_ITS ---
Exercise - 90-Day Assessment - Visit Date of Eval: 06/29/19 Session #:: 30 - Patient has missed 9 sdcheduled sessions. - Stages of Change Stages of Change:: Action - Physician Prescribed Exercise Modalities: Treadmill, Airdyne, NuStep Frequency (days/week): 3 Duration (Minutes):: 30-45 Intensity: 60-80% age predicted maximum heart rate reserve METs - Progression: 0.5-1.0 MET, RPE 11-14 WEEK: 3.5 has unchanged. Target Heart Rate:: 90-115 max HR 111 - Hypertension Resting Blood Pressure:: 112/56 Peak Exercise Blood Pressure:: 162/72 Medication Changes:: No - Intervention Home Exercise/Activity Goal:: Moderate Exercise 30 min/day x 5 days/wk - Education Goals:: Warm-up, RPE MANDY Scale, S/S, Safe Exercise, Self-Monitoring - Exercise Program Goals Exercise Program Goals: Aerobic Activity >30 min Nutrition - 90-Day Assessment - Program Goals Nutrition Program Goals: LDL <70. Total Cholesterol <200. HDL >45. Triglycerides <150. HgbA1C <7%. BMI <25 - Visit Date of Eval: 06/29/19 - Stages of Change Stages of Change:: Action - Lipids Has the patient seen the dietitian?: No - Diabetes Diabetes:: No Insulin: No Non-Insulin Dependent?: No - Weight Management Weight:: 122 lb - down 2 more pounds - Intervention Referral to dietitian:: No Referral to Diabetic Clinic:: No Will attend diet classes:: Yes - Education Attended class for:: Healthy eating Tobacco - Initial Assessment - Program Goals Tobacco Program Goals: Complete smoking cessation. Attend education classes. Improve Knowledge Test score - Learning Barriers Learning Barriers: Vision - REQUIRES GLASSES FOR READING, Ready to Learn Tobacco - 90-Day Assessment - Program Goals Tobacco Program Goals: Complete smoking cessation. Attend education classes. Improve Knowledge Test score - Stage of Change Stages of Change:: Action - Learning Barriers Learning Barriers: Participates in education - Family Support Do you have family support?: Yes - Tobacco Use Tobacco Use: Non-smoker Do you use smokeless tobacco?: No - Intervention Smoking Cessation Referral:: No Individual Education/Counseling:: No Education Schedule Given:: Yes - Education Attended class for:: Treating Heart Disease, How The Heart Works, What it means to have Heart Disease, How Coronary Artery Disease is Diagnosed, Heart Procedures, What Heart Medications Do, Risk Factors & Modifications, Living an Active Life, Nutrition, Emotions & Heart Disease, Stress Management & Relaxation, Sleep Disorders & Heart Disease Psychosocial - Initial Assess - Target Goals Target Goals: Assess presence or absence of depression. Using a valid screening tool, maximizes coping skills. Positive support system - Psychosocial Test Tool Used:: HANDS Depression Questionnaire - Assistive Devices Fall Risk Assessed:: Yes Psychosocial - 90-Day Assess - Target Goals Target Goals: Assess presence or absence of depression. Using a valid screening tool, maximizes coping skills. Positive support system - Stages of Change Stages of Change:: Action - Psychosocial Test Tool Used:: HANDS Depression Questionnaire - Intervention PS - Interventions: Yes Attend Stress Management Classes, Yes Uses Stress Management Skills, No Referral to Mental Health, No Referral to [facility] Case Management, No Referral to Physician - Education Attended classes for:: Coping techniques, Signs & symptoms of depression, Stress management, Relaxation techniques - Patient/Program Goal Preventative Medication(s):: Aspirin, JORGE LUIS inhibitor, Clopidogrel, Beta orion, Statin/lipid - patient is compliant with medications - Assistive Devices Assistive Devices:: None Fall Risk Assessed:: Yes Patient Health Questionnaire 90-Day Re-eval Assessment 1. Little interest or pleasure in doing things: Several days 2. Feeling down, depressed, or hopeless: Several days 3. Trouble falling or staying asleep, or sleeping too much: Several days 4. Feeling tired or having little energy: Not at all 5. Poor appetite or overeating: Not at all 6. Feeling bad about yourself -- or that you are a failure or have let yourself or your family down: Not at all 7. Trouble concentrating on things, such as reading the newspaper or watching television: Not at all 8. Moving or speaking so slowly that other people could have noticed. Or the opposite - being so fidgety or restless that you have been moving around a lot more than usual: Not at all 9. Thoughts that you would be better off , or of hurting yourself in some way: Not at all Total Score: 3 Self-Efficacy 90-Day Re-eval Assessment We would like to know how confident you are in doing certain activities. Please select your confidence level for:: Select your confidence level for the following using the scale 1-10 where 1 is not at all confident and 10 is totally confident. Your score is the average of all 6 responses. Fatigue: How confident are you that you can keep the fatigue caused by your disease from interfering with the things you want to do? Select Number: 9 Physical Discomfort or Pain: How confident are you that you can keep the physical discomfort or pain of your disease from interfering with the things you want to do? Select Number: 10 Emotional Distress: How confident are you that you can keep the emotional distress caused by your disease from interfering with the things you want to do? Select Number: 10 Other Symptoms or Health Problems: How confident are you that you can keep other symptoms or health problems from interfering with the things you want to do? Select Number: 10 Different Tasks and Activities: How confident are you that you can do the different tasks and activities needed to manage your health condition so as to reduce your need to see a doctor? Select Number: 10 Medication: How confident are you that you can do things other than just taking medication to reduce how much your illness affects your everyday life? Select Number: 10 Total Score:: 9
[2019-06-29 08:08] VITALS: BP 112/56; BP 162/72
== END 2019-07-02 23:59 ==
LOC: CR 14:15
PROVIDERS: Family Provider Internal Medicine; PCP Internal Medicine; Referring Provider Internal Medicine Cardiovascular Disease; Visit Provider Internal Medicine Cardiovascular Disease
DX: I25.10 Atherosclerotic heart disease of native coronary artery without angina pectoris (principal); Z95.5 Presence of coronary angioplasty implant and graft
CPT/HCPCS: 93798

== ENCOUNTER 2019-07-08 14:15 | Outpatient (RCR) | payer MEDICARE, SELFPAY ==
[2019-02-27 14:50] VITALS: BMI 22.1
[2019-06-04 14:30] VITALS: BMI 23.0
[2019-07-03 00:24] VITALS: BP 112/56; BP 162/72
== END 2019-08-01 23:59 ==
LOC: CR 14:15
PROVIDERS: Family Provider Internal Medicine; PCP Internal Medicine; Referring Provider Internal Medicine Cardiovascular Disease; Visit Provider Internal Medicine Cardiovascular Disease
DX: I25.10 Atherosclerotic heart disease of native coronary artery without angina pectoris (principal); Z95.5 Presence of coronary angioplasty implant and graft
CPT/HCPCS: 93798

== ENCOUNTER → 2019-09-24 11:43 | Outpatient (CLI) | payer MEDICARE, SELFPAY ==
[2019-02-27 14:50] VITALS: BMI 22.1
[2019-06-04 14:30] VITALS: BMI 23.0
--- NOTE | 2019-09-24 11:48 | VDLE_ITS ---
Reason For Study: pain in left leg, hematoma RIGHT LEFT CFV is compressible, spontaneous, phasic, GSV is normal. competent and demonstrates normal CFV is compressible, spontaneous, phasic, augmentation. competent, and demonstrates normal Procedure augmentation. Exam performed in department. FV is compressible, spontaneous, phasic, The exam was diagnostic. competent and demonstrates normal A preliminary report was called and/or faxed augmentation. to [facility]. POP V is compressible, spontaneous, phasic, competent and demonstrates normal augmentation. T/P Trunk is compressible. PTV is compressible. LT PerV is compressible. Interpretation Summary Deep veins of the left lower extremity are patent and compressible segmentally. There is no evidence of left lower extremity deep vein thrombosis. Valvular competence appears intact within the proximal deep venous system on the left . The left great saphenous vein appears patent and compressible segmentally. Ordering Physician: Elizabeth Oscar M.D. Performed By: Jarett Valdez RVT
== END ==
PROVIDERS: PCP Internal Medicine; Referring Provider Internal Medicine; Visit Provider Internal Medicine
DX: M79.605 Pain in left leg (principal); S80.10XA Contusion of unspecified lower leg, initial encounter; X58.XXXA Exposure to other specified factors, initial encounter; Y93.9 Activity, unspecified; Y92.9 Unspecified place or not applicable; Y99.9 Unspecified external cause status
CPT/HCPCS: 93971

== ENCOUNTER 2019-09-26 09:01 | Emergency (ER) | payer MEDICARE, SELFPAY ==
[2019-02-27 14:50] VITALS: BMI 22.1
[2019-06-04 14:30] VITALS: BMI 23.0
[2019-09-26 09:04] VITALS: BP 135/107; PULSE 96; RESP 17; TEMP 37.2; O2SAT 98; BMI 22.6
--- NOTE | 2019-09-26 09:24 | EKG12_ITS ---
Test Reason : SYNCOPE Blood Pressure : / mmHG Vent. Rate : 082 BPM Atrial Rate : 082 BPM P-R Int : 152 ms QRS Dur : 118 ms QT Int : 366 ms P-R-T Axes : 066 -12 026 degrees QTc Int : 427 ms Sinus rhythm with occasional Premature ventricular complexes Right bundle branch block Abnormal ECG Confirmed by SUN MARCANO, LORRIE ([id number]), associate editor JEFFREY RODRIGUEZ ([id number]) on 09/28/2019 12:22:36 PM Referred By: JORGE Confirmed By:LORRIE GARSIA MD
--- NOTE | 2019-09-26 09:24 | RAD_ITS ---
STUDY: X-RAY - LEFT HAND REASON FOR EXAM: Female, 84 years old with left-sided hand swelling and redness after dog bite two days ago. TECHNIQUE: 3 view(s) of the hand. COMPARISON: Radiographs of the right hand dated February 10, 2010. FINDINGS: Normal radiocarpal articulation. There is a positive ulnar variant of the distal radioulnar articulation. There is diffuse demineralization of the carpal bones. 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 Normal second through fifth carpometacarpal joints. The metacarpal bones are osteopenic. Normal metacarpophalangeal joint of the thumb. Normal interphalangeal joint of the thumb. Normal proximal and distal phalanges of the thumb. Normal metacarpophalangeal joints of the second through fifth fingers. There is diffuse articular joint space narrowing of the proximal and distal interphalangeal joints of the second through fifth fingers, but without erosive changes or periarticular soft tissue swelling. The phalanges are osteopenic. There is diffuse soft tissue swelling of the wrist and hand. RAD/Hand Min 3 Views IMPRESSION: 1. Osteoporosis. 2. Moderately severe soft tissue swelling. 3. Diffuse degenerative changes and joint space narrowing of the fingers in particular. Electronically Signed: Phylicia Vargas MD at 10:01 EST , Service support ,
[2019-09-26 09:40] LABS: Absolute Lymphocyte Count 0.53 X10^3/uL (0.83-4.51); Absolute Neutrophil Count 10.3 X10^3/uL (2.0-7.7); Basophil# 0.01 X10^3/uL; Basophil% 0.1 % (0-1); Eosinophil# 0.06 X10^3/uL; Eosinophils% 0.5 % (0-5); Hematocrit 36.8 % (37-47); Hemoglobin 12.6 g/dL (12.0-15.0); Lymphocyte # 0.53 X10^3/ul (4.0); Lymphocyte % 4.4 % (19-41); Mean Corp Hgb Conc 34.2 g/dL (32-36); Mean Corpuscular Hgb 29.7 pg (27.0-32.0); Mean Corpuscular Volume 86.8 fL (81-99); Mean Platelet Vol. 9.8 fl (6.2-12.0); Monocyte# 1.03 X10^3/uL; Monocyte% 8.6 % (0-10); NRBC Flagged by Analyzer 0 % (0-5); Neutrophil # 10.34 X10^3/uL (2.7-7.7); Neutrophil % 86.1 % (47-70); POSITIVE DIFFERENTIAL YES; Platelet Count 217 K/mm3 (150-450); RBC Distribution Width CV 13.5 % (11.6-14.6); RBC Distribution Width SD 42.1 fl (35.1-43.9); Red Blood Count 4.24 M/mm3 (4.2-5.4)
[2019-09-26 09:46] LABS: Differential Indicated SCAN CRITERIA MET
[2019-09-26 09:51] LABS: Anion Gap 4 (5-15); BUN 20 mg/dL (7-18); BUN/Creat Ratio 17.7 RATIO (10-20); Calcium,Total 9.8 mg/dL (8.5-10.1); Chloride 100 mmol/L (98-107); Creatinine, Serum 1.13 mg/dL (0.55-1.02); EST Glomerular Filtration Rate 49 mL/min (>60); Est Glom Filt Rate - Afr Amer 59 mL/min (>60); Estimated Creatinine Clearance 28.46 ml/min; Glucose 141 mg/dL (74-106); Potassium 4.2 mmol/L (3.5-5.1); Sodium Level 130 mmol/L (136-145)
[2019-09-26] MEDS: Levothyroxine 25 MCG TABLET PO (11:06)
--- NOTE | 2019-09-26 11:15 | EKG12_ITS ---
Test Reason : REPEAT-ELEVATED TROP Blood Pressure : / mmHG Vent. Rate : 074 BPM Atrial Rate : 074 BPM P-R Int : 146 ms QRS Dur : 116 ms QT Int : 404 ms P-R-T Axes : 049 -20 026 degrees QTc Int : 448 ms Normal sinus rhythm Right bundle branch block Abnormal ECG Confirmed by SUN MARCANO, LORRIE ([id number]), film and video editor JEFFREY RODRIGUEZ ([id number]) on 09/28/2019 12:22:24 PM Referred By: JORGE Confirmed By:LORRIE GARSIA MD
[2019-09-26 11:25] VITALS: BP 131/78; PULSE 80; RESP 17; O2SAT 98
--- NOTE | 2019-09-26 12:30 | ED.DCSUM_ITS ---
History of Present Illness Chief Complaint: Syncope Detail of Chief Complaint: Dog bite left hand, syncope Informant: Patient Onset: Days Narrative: Patient presents for evaluation secondary to a dog bite to her left hand as well as a syncopal episode last night. Patient states she was bit by her dog on evening, 2 days ago. Patient states she reached to take a bag of candy away from the dog that it had gotten into. The dog bit her on the left hand. Yesterday the hand was red and swollen. [facility] given a tetanus update and started on Augmentin. Patient does have a penicillin allergy but states she had written down that she had had Augmentin in the past without difficulty. She took a single dose of Augmentin last night and fell asleep on the couch. After getting up to go upstairs she became lightheaded and dizzy as well as nauseated. She had a syncopal episode and found her on the bathroom floor. He states the patient was pale and nauseated. It took a while for the symptoms to pass for her to be able to get up. During the night patient states she slept well. She did later admit that she had an episode of chest pain that lasted approximately 30 minutes and then spontaneously resolved. Upon arriving to the ER this morning she states she just feels weak and tired. - Past Medical History (1) Atherosclerosis of [place] coronary artery of [place] heart without angina pectoris Status: Chronic Comment: IVUS guided PCI/OZIEL to prox LAD 02/27/19; PTCA/OZIEL to prox Diag #1 and PCI/OZIEL to Mid LAD at bifurcation of diag to ensure no struts from diag stent protruded into LAD 03/08/19 (2) CAD (coronary artery disease) Status: Chronic (3) CHF (congestive heart failure) Status: Chronic (4) Essential (primary) hypertension Status: Chronic (5) Hx of congestive heart failure Status: Chronic (6) Pure hypercholesterolemia Status: Chronic (7) S/P coronary artery stent placement Status: Chronic Comment: IVUS guided PCI/OZIEL to prox LAD 02/27/19; PTCA/OZIEL to prox Diag #1 and PCI/OZIEL to Mid LAD at bifurcation of diag to ensure no struts from diag stent protruded into LAD 03/08/19 (8) Valvular heart disease Status: Chronic (9) NSTEMI (non-ST elevated myocardial infarction) Status: Resolved Past Medical History - Allergies and Home Meds Allergies/Adverse Reactions: Allergies nitrofurantoin [From Macrobid] Allergy (Intermediate, Verified 09/26/19 09:02) thrush latex Allergy (Mild, Verified 09/26/19 09:02) Rash Penicillins [PCN] Allergy (Verified 09/26/19 09:02) Unknown Dbxlghf-Edx-Dmt Reductase Inhibitor Allergy (Verified 09/26/19 09:02) All blood cells low Sulfa (Sulfonamide Antibiotics) Adverse Reaction (Verified 09/26/19 09:02) Nausea/Vom/Diarrhea Primary Care Physician: Dori Boyd DO [Primary Care Provider] - Doctors: Dr. 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 Lives: Spouse/ Significant Other Smoking Status: Never smoker - Family History Maternal Family History: Family History (Last Reviewed 06/04/19 @ 14:58 by BENJAMIN Simons) Father CAD (coronary artery disease) Myocardial infarction Mother CVA (cerebral vascular accident) Brother Aneurysm Brother Heart disease Sister Afib Parkinson's disease Family History: Reports: Stroke Paternal Family History: Family History (Last Reviewed 06/04/19 @ 14:58 by BENJAMIN Simons) Father CAD (coronary artery disease) Myocardial infarction Mother CVA (cerebral vascular accident) Brother Aneurysm Brother Heart disease Sister Afib Parkinson's disease Family History: Reports: Heart Disease Sibling Family History: Family History (Last Reviewed 06/04/19 @ 14:58 by BENJAMIN Simons) Father CAD (coronary artery disease) Myocardial infarction Mother CVA (cerebral vascular accident) Brother Aneurysm Brother Heart disease Sister Afib Parkinson's disease Family History: Reports: Heart Disease, - - Aneurysm Review of Systems General: Denies: Chills, Fever Eyes: Denies: Visual changes - bilaterally ENT: Denies: Bilateral ear pain Cardiovascular: Reports: Chest pain - Patient admits to chest pain overnight, but was not present at the time of her syncopal episode.. Denies: Palpitations, Heart racing Respiratory: Denies: Dyspnea, Cough Gastrointestinal: Reports: Nausea. Denies: Abdominal pain, Vomiting Genitourinary: Denies: Dysuria Musculoskeletal: Reports: Swelling, Extremity Pain Skin: Reports: Wounds Neurological: Denies: Headache Allergy: Denies: Uticaria Physical Exam Vital Signs/Narrative: Vital Signs Temp Pulse Resp BP Pulse Ox 09/26/19 11:25 80 17 131/78 H 98 09/26/19 09:04 98.9 F 96 17 135/107 H 98 Inital Vital Signs reviewed: Yes General: Well nourished, Well developed Head: Normocephalic ENT: Moist mucous membranes Neck: Supple Cardiovascular: Regular rate, Regular rhythm Respiratory: No distress, CTA bilaterally Abdomen: Soft, Nontender Extremities: - - 2 scabbed lesions to the dorsum of the left hand. Surrounding edema and erythema is noted. There is no tenderness along the extensor tendons. She has good range of motion. Neurological: Alert, Oriented x3, Normal Strength, Normal Sensation Psychological: Normal affect Diagnostic/Tx/Re-eval Impressions Hand X-Ray 09/26/19 09:24 IMPRESSION: 1. Osteoporosis. 2. Moderately severe soft tissue swelling. 3. Diffuse degenerative changes and joint space narrowing of the fingers in particular. Electronically Signed: Phylicia Vargas MD at 10:01 EST , Service support , 09/26/19 09:24 Hand Min 3 Views [RAD] Stat Laboratory Results 09/26/19 09/26/19 09/26/19 09:15 09:15 11:20 WBC 12.0 H RBC 4.24 Hgb 12.6 Hct 36.8 L MCV 86.8 MCH 29.7 MCHC 34.2 RDW Std Deviation 42.1 RDW Coeff of Young 13.5 Plt Count 217 MPV 9.8 Immature Gran % (Auto) 0.300 Neut % (Auto) 86.1 H Lymph % (Auto) 4.4 L Harper % (Auto) 8.6 Eos % (Auto) 0.5 Baso % (Auto) 0.1 Absolute Neuts (auto) 10.3 H Absolute Lymphs (auto) 0.53 L Nucleated RBC % 0 Sodium 130 L Potassium 4.2 Chloride 100 Carbon Dioxide 26.0 Anion Gap 4 L BUN 20 H Creatinine 1.13 H Estim Creat Clear Calc 28.46 Est GFR (MDRD) Af Amer 59 L Est GFR (MDRD) Non-Af 49 L BUN/Creatinine Ratio 17.7 Glucose 141 H Calcium 9.8 Troponin I 0.217 H 0.201 H - EKG Initial EKG Interpretation: Sinus Rhythm - Sinus at 82 with a right bundle branch block. No acute ischemia. Follow-up EKG Interpretation: Sinus Rhythm - Sinus at 74 with right bundle branch block present. No acute ischemia. - Medical Decision Making Patient was given IV fluids and placed on desk monitor. No evidence of arrhythmia. She is able to get up and ambulate to the restroom and back without difficulty. Patient's initial troponin is elevated. On review of her records she has had elevated troponin to the point 2 range on multiple visits. On both of these occasions she was having chest pain. On one occasion she underwent a heart cath that was normal. On the other occasion she had a heart cath and required a single stent. When patient had an DC in 2019 her troponin melania to over 2.0. 2-hour repeat EKG and troponin were drawn. Troponin is slightly trended down. Patient has had no chest pain this morning. She wishes to go home and states the pain she felt last night was not typical of her DC. I spoke with Dr. Akhtar. If patient has any recurrent pain she is to return back to the emergency room. The left hand wounds are cleansed and dressed. She will be switched to doxycycline as she does not have a documented allergy to this drug class. ED Disposition - Plan for ED Patient: Disposition: Home or Assisted Living Diagnosis: Syncope, Dog bite Instructions: SYNCOPE, Unk Cause, Dog Bite Prescriptions: Doxycycline 100 mg PO BID #14 cap Transmission Status: Pending to [id number] Referrals: Dori Boyd DO [Primary Care Provider] - 3-5 Days Jakub Bradshaw MD [STAFF PHYSICIAN] - 1-2 Weeks
[2019-09-26] MEDS: Doxycycline 100 MG CAPSULE PO (12:43)
== END 2019-09-26 12:59 | disposition home or self-care (01) ==
PROVIDERS: Emergency Provider Emergency Medicine; PCP Internal Medicine
DX: R07.9 Chest pain, unspecified (principal); S61.452A Open bite of left hand, initial encounter; W54.0XXA Bitten by dog, initial encounter; Y93.9 Activity, unspecified; Y92.9 Unspecified place or not applicable; Y99.9 Unspecified external cause status; I25.10 Atherosclerotic heart disease of native coronary artery without angina pectoris; I11.0 Hypertensive heart disease with heart failure; I50.9 Heart failure, unspecified; E78.00 Pure hypercholesterolemia, unspecified; Z79.82 Long term (current) use of aspirin; Z79.899 Other long term (current) drug therapy; I25.2 Old myocardial infarction; Z91.040 Latex allergy status; Z88.2 Allergy status to sulfonamides; Z88.0 Allergy status to penicillin; Z88.1 Allergy status to other antibiotic agents; Z88.8 Allergy status to other drugs, medicaments and biological substances; Z95.5 Presence of coronary angioplasty implant and graft
CPT/HCPCS: 73130; 80048; 84484; 85025; 93005; 99285; A4216

== ENCOUNTER → 2020-05-13 11:46 | Outpatient (CLI) | payer MEDICARE, SELFPAY ==
[2019-02-27 14:50] VITALS: BMI 22.1
[2019-12-15 13:22] VITALS: BMI 22.3
--- NOTE | 2020-05-13 12:00 | RAD_ITS ---
STUDY: X-RAY CHEST REASON FOR EXAM: Female, 84 years old. COUGH TECHNIQUE: PA and lateral views of the chest. COMPARISON: Prior study of 03/10/2019 FINDINGS: The lungs are mildly hyperinflated. There is hemidiaphragmatic flattening with increased retrosternal airspace suggestive of COPD. There is no demonstrated pleural abnormality. Normal size heart. Normal mediastinum and colette. Normal visualized pulmonary arteries. There are calcified plaques of the aortic arch. There is mild S-shaped for a lumbar scoliosis. Normal visualized ribs, clavicles, and shoulders. There is no demonstrated abnormality of the visualized soft tissue structures of the upper abdomen. RAD/Chest PA and Lateral IMPRESSION: Findings suggestive of COPD. Mild thoracolumbar scoliosis. No acute cardiopulmonary disease process is seen. Electronically Signed: Michael Santos MD at 19:52 EDT , Service support ,
== END ==
PROVIDERS: PCP Internal Medicine; Referring Provider Internal Medicine; Visit Provider Internal Medicine
DX: R05 Cough (principal)
CPT/HCPCS: 71046

== ENCOUNTER → 2020-05-30 11:26 | Outpatient (CLI) | payer MEDICARE, SELFPAY ==
[2019-02-27 14:50] VITALS: BMI 22.1
[2019-12-15 13:22] VITALS: BMI 22.3
--- NOTE | 2020-05-30 12:42 | NEURO ---
NCS and/or EMG Patient Report Ordering Doctor: Kristen Boydeen DATE OF SERVICE: 05/30/20 Indication: Intermittent numbness and paresthesias involving the left lower extremity. The intensity of symptoms fluctuate throughout the day depending on activity level. She does report chronic back pain, but no clear radicular features. She has similar symptoms on the right, though these are less severe. Findings: The examination was limited to the left lower extremity at the patient's request. The left peroneal motor study recording the extensor digitorum brevis showed a normal amplitude, normal distal latency and normal conduction velocity. No conduction block or focal slowing was present across the fibular neck. The left tibial motor study recording the abductor hallucis brevis showed a normal amplitude, normal distal latency and normal conduction velocity. Left sural sensory response showed a normal amplitude and conduction velocity. Left superficial peroneal sensory response showed a normal amplitude and conduction velocity. Needle EMG of the left lower extremity and lumbar paraspinal muscles was performed. No denervation was present in any muscle. The left medial gastrocnemius, extensor houses longus, and tensor fascia jeannie demonstrated motor units that were large amplitude, long duration, and mildly polyphasic with normal recruitment patterns. The vastus medialis and tibialis anterior revealed normal motor unit morphology, activation and recruitment patterns. Impression: This is a mildly abnormal study. There is electrophysiologic evidence of a chronic, left L5/S1 radiculopathy. No active denervation in the extremity or lumbar paraspinals to suggest ongoing axonal injury. Worsening symptoms in the absence of axonal loss can occur in the setting of compression resulting in intermittent ischemia or mechanical deformation; or demyelination without axonal loss. In addition, there is no evidence of superimposed peripheral neuropathy or peroneal neuropathy in the left lower extremity. Humberto Ordonez D.O.
== END ==
PROVIDERS: PCP Internal Medicine; Referring Provider Internal Medicine; Visit Provider Internal Medicine
DX: R20.2 Paresthesia of skin (principal)
CPT/HCPCS: 95886; 95909

== ENCOUNTER 2020-10-26 09:44 | Emergency (ER) | payer MEDICARE, SELFPAY ==
[2019-02-27 14:50] VITALS: BMI 22.1
[2020-08-24 14:33] VITALS: BMI 21.9
[2020-10-26 09:48] VITALS: BP 181/105; PULSE 83; RESP 17; TEMP 36.2; O2SAT 98; BMI 21.4
--- NOTE | 2020-10-26 10:07 | EKG12_ITS ---
Test Reason : CP Blood Pressure : / mmHG Vent. Rate : 081 BPM Atrial Rate : 081 BPM P-R Int : 150 ms QRS Dur : 110 ms QT Int : 382 ms P-R-T Axes : 059 -28 029 degrees QTc Int : 443 ms Sinus Rhythm Right bundle branch block Abnormal ECG Confirmed by JACKIE MARCANO, PARISA ([id number]), photo editor VIRAL SIM ([id number]) on 10/31/2020 9:36:49 AM Referred By: MACIEL Confirmed By:MANDO MEJIA MD
--- NOTE | 2020-10-26 10:08 | ED.DCSUM_ITS ---
History of Present Illness Chief Complaint: Abn Labs Informant: Patient Narrative: This is an 85-year-old female who is presenting with abnormal labs. She tells me that last week from Saturday to Saturday she developed a left-sided headache which she states she has had before. Associated with that she felt very fatigued and she had some tightness on the left side of her chest and up into her neck. She was supposed to get a Covid shot so she called her doctor and they saw her yesterday. She was feeling much better than what she had been. In January and March 2019 the patient received 2 stents to her LAD. She follows with Dr. Bradshaw. She has a history of a few pheochromocytoma, mitral valve prolapse, atrial fibrillation, congestive heart failure, and coronary artery disease. They did an EKG that did not show any significant changes from prior. They did blood work that showed a creatinine of 1.1 and a troponin of 0.07. Primary care received these results today and they sent her in for further evaluation. - Past Medical History (1) Atherosclerosis of [place] coronary artery of [place] heart without angina pectoris Status: Chronic Comment: IVUS guided PCI/OZIEL to prox LAD 02/27/19; PTCA/OZIEL to prox Diag #1 and PCI/OZIEL to Mid LAD at bifurcation of diag to ensure no struts from diag stent protruded into LAD 03/08/19 (2) CHF (congestive heart failure) Status: Chronic (3) Essential (primary) hypertension Status: Chronic (4) Nonrheumatic mitral valve prolapse Status: Chronic (5) Pure hypercholesterolemia Status: Chronic (6) NSTEMI (non-ST elevated myocardial infarction) Status: Resolved Past Medical History - Allergies and Home Meds Allergies/Adverse Reactions: Allergies nitrofurantoin [From Macrobid] Allergy (Intermediate, Verified 10/26/20 09:47) thrush latex Allergy (Mild, Verified 10/26/20 09:47) Rash Penicillins [PCN] Allergy (Verified 10/26/20 09:47) not sure Wnjmgrr-Opp-Acm Reductase Inhibitor Allergy (Verified 10/26/20 09:47) All blood cells low amoxicillin [From Augmentin] Adverse Reaction (Severe, Verified 10/26/20 09:47) syncope clavulanic acid [From Augmentin] Adverse Reaction (Severe, Verified 02/24/21 09:47) syncope carvedilol [From Coreg] Adverse Reaction (Intermediate, Verified 10/26/20 09:47) Very fatigued on smallest dose doxycycline Adverse Reaction (Verified 10/26/20 09:47) GI symptoms, emesis Sulfa (Sulfonamide Antibiotics) Adverse Reaction (Verified 10/26/20 09:47) Nausea/Vom/Diarrhea Primary Care Physician: Dori Boyd DO [Primary Care Provider] - Surgical History: angioplasty, appendectomy, cataract, dilatation and curettage, - - 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 Lives: Spouse/ Significant Other Smoking Status: Never smoker Drugs: None - Family History Maternal Family History: Family History (Last Reviewed 08/24/20 @ 14:44 by Emerita Cloud) Father CAD (coronary artery disease) Myocardial infarction Mother CVA (cerebral vascular accident) Brother Aneurysm Brother Heart disease Sister Afib Parkinson's disease Family History: Reports: Stroke Paternal Family History: Family History (Last Reviewed 08/24/20 @ 14:44 by Emerita Cloud) Father CAD (coronary artery disease) Myocardial infarction Mother CVA (cerebral vascular accident) Brother Aneurysm Brother Heart disease Sister Afib Parkinson's disease Family History: Reports: Heart Disease Sibling Family History: Family History (Last Reviewed 08/24/20 @ 14:44 by Emerita Cloud) Father CAD (coronary artery disease) Myocardial infarction Mother CVA (cerebral vascular accident) Brother Aneurysm Brother Heart disease Sister Afib Parkinson's disease Family History: Reports: Heart Disease, - - Aneurysm Physical Exam Vital Signs/Narrative: Vital Signs Temp Pulse Resp BP Pulse Ox 10/26/20 09:48 97.2 F L 83 17 181/105 H 98 General: Well nourished, Well developed, No Acute Distress Head: Normocephalic, Atraumatic Eyes: Perrl, EOMI ENT: Moist mucous membranes, No rhinorrhea Neck: Supple, Nontender Cardiovascular: Regular rate, Regular rhythm, No murmurs Respiratory: No distress, CTA bilaterally, Chest nontender Abdomen: Soft, Nontender, Nondistended, Normal bowel sounds Back: Nontender, Normal Inspection Extremities: Nontender, No edema Skin: Normal color, No rash Neurological: Alert, Oriented x3, Cranial nerves II-XII grossly intact, Normal Strength, Normal Sensation Psychological: Normal affect, Normal Mood Diagnostic/Tx/Re-eval Laboratory Last Values Troponin I 0.237 ng/mL (<0.045) H 10/26/20 10:23 - Medical Decision Making Potation of the single view portable chest x-ray is no acute process. Patient appears to chronically have troponin leak. Today's levels are consistent with her prior levels. When she needed cardiac intervention her levels were substantially more elevated. I spoke with on-call cardiology Dr. Akhtar. Patient will follow up in the office. ED Disposition - Plan for ED Patient: Disposition: Home or Assisted Living Diagnosis: Chest pain, Elevated troponin I level Instructions: ED Chest Pain, Uncertain Cause Referrals: Dori Boyd, [Primary Care Provider] - 1 Week if not improving
--- NOTE | 2020-10-26 11:20 | RAD_ITS ---
STUDY: X-RAY CHEST REASON FOR EXAM: Female, 85 years old. Sent in by pcp for abn lab results -- reports chest pain, fatigue, sinus headache last week. TECHNIQUE: Single AP portable view of the chest. COMPARISON: Comparison is made with prior study dated 05/13/2020. FINDINGS: EKG electrodes are seen. Hyperinflation. Mild degree of vascular congestion. There is no demonstrated pleural abnormality. There is mild cardiac enlargement. Normal mediastinum and colette. Normal visualized pulmonary arteries. There is atherosclerotic calcification of the aortic arch with tortuosity. Normal visualized thoracic spine. Normal visualized ribs, clavicles, and shoulders. There is no demonstrated abnormality of the visualized soft tissue structures of the upper abdomen. RAD/Chest 1 View (Portable) IMPRESSION: Mild degree of vascular congestion. Electronically Signed: Michael Persaud MD at 11:54 EST , Service support ,
[2020-10-26 11:54] VITALS: BP 149/83; PULSE 75; RESP 14; O2SAT 95
== END 2020-10-26 12:17 | disposition home or self-care (01) ==
PROVIDERS: Emergency Provider Emergency Medicine; PCP Internal Medicine
DX: R07.9 Chest pain, unspecified (principal); R79.89 Other specified abnormal findings of blood chemistry; I25.10 Atherosclerotic heart disease of native coronary artery without angina pectoris; I48.91 Unspecified atrial fibrillation; I34.1 Nonrheumatic mitral (valve) prolapse; I11.0 Hypertensive heart disease with heart failure; I50.9 Heart failure, unspecified; E78.00 Pure hypercholesterolemia, unspecified; Z79.82 Long term (current) use of aspirin; Z79.890 Hormone replacement therapy; Z79.899 Other long term (current) drug therapy; I25.2 Old myocardial infarction; Z95.5 Presence of coronary angioplasty implant and graft
CPT/HCPCS: 71045; 84484; 93005; 99284

== ENCOUNTER 2020-11-03 22:42 | Outpatient (RCR) | payer MEDICARE, SELFPAY ==
[2019-02-27 14:50] VITALS: BMI 22.1
[2020-08-24 14:33] VITALS: BMI 21.9
[2020-10-27 10:34] VITALS: BMI 22.1
[2020-11-03] MEDS: COVID-19 VACC, MRNA(PFIZER)/PF 30 MCG/0.3 ML SYRINGE IM (17:37)
[2020-11-24] MEDS: COVID-19 VACC, MRNA(PFIZER)/PF 30 MCG/0.3 ML SYRINGE IM (16:57)
== END 2020-11-03 23:59 ==
LOC: IMMUN 22:42
PROVIDERS: PCP Internal Medicine; Referring Provider Family Medicine; Visit Provider Family Medicine
DX: Z23 Encounter for immunization (principal)
CPT/HCPCS: 0001A; 0002A; 91300; 91301

== ENCOUNTER → 2020-11-08 06:24 | Outpatient (CLI) | payer MEDICARE, SELFPAY ==
[2019-02-27 14:50] VITALS: BMI 22.1
[2020-10-27 10:34] VITALS: BMI 22.1
--- NOTE | 2020-11-08 06:29 | ECHOD_ITS ---
Reason For Study: CAD/ASHD Procedure This was a 2D Doppler, Color Flow transthoracic echocardiogram. The exam was of adequate technical quality. Exam performed in department. Left Ventricle Normal LV size. Apical false tendon noted. Left ventricular systolic function is normal. The estimated ejection fraction is 55 %. No evidence for diastolic dysfunction. No regional wall motion abnormalities noted. Right Ventricle Normal RV size. Normal systolic function. Atria The left atrium is mildly enlarged. Normal right atrium. No doppler evidence for ASD. Mitral Valve There is no mitral annular calcification. Moderate diffuse mitral valve thickening. 2D echocardiographic images appearing c/w redundant and / or ruptured chordae tendonae. Mild to moderate mitral valve prolapse. Mild-Moderate (1-2+) eccentric mitral valve insufficiency. Tricuspid Valve Normal tricuspid valve. Moderate (2+) tricuspid valve insufficiency. Right ventricular systolic pressure estimated to be 31 mmHg. Aortic Valve Trisinus/trileaflet aortic valve. Mild diffuse aortic valve thickening. Mild focal aortic valve calcification. Mild-Moderate (1-2+) aortic valve insufficiency. Pulmonic Valve The pulmonic valve is not well visualized. Trivial pulmonic valve insufficiency. Great Vessels Normal sized aortic root. Pericardium/Pleural Trivial pericardial effusion. There are no echocardiographic indications of cardiac tamponade. MMode/2D Measurements & Calculations LVIDd: 5.0 cm IVSd: 0.70 cm Ao root diam: 3.0 cm LVIDs: 3.7 cm LVPWd: 0.80 cm FS: 26.6 % LAV(MOD-bp): 45.8 ml LVAd ap4: 24.0 cm2 SV(MOD-sp4): 36.9 ml LAV(MOD-bp) Indexed: 30.4 ml/m2 EDV(MOD-sp4): 72.6 ml LAV(MOD-sp2): 39.5 ml EDV(sp4-el): 76.4 ml LAV(MOD-sp4): 43.7 ml LVAs ap4: 16.2 cm2 ESV(MOD-sp4): 35.7 ml ESV(sp4-el): 36.1 ml EF(MOD-sp4): 50.9 % EF(sp4-el): 52.7 % SV(sp4-el): 40.3 ml LA A4 area: 17.5 cm2 LA dimension(2D): 3.3 cm RA A4 area: 14.9 cm2 Time Measurements MV dec time: 0.18 sec Doppler Measurements & Calculations MV E max bradford: 50.7 cm/sec Lat Peak E' Bradford: 8.6 cm/sec Med Peak E' Bradford: 5.4 cm/sec MV A max bradford: 60.8 cm/sec E/E' lat: 5.9 E/E' med: 9.4 MV E/A: 0.83 Ao V2 max: 136.7 cm/sec AI max bradford: 479.5 cm/sec LV V1 max: 112.9 cm/sec Ao max P.5 mmHg AI max P.0 mmHg LV V1 max P.1 mmHg AI dec slope: 380.9 cm/sec2 AI P1/2t: 368.8 msec PA V2 max: 98.6 cm/sec PI end-d bradford: 103.8 cm/sec TR max bradford: 272.3 cm/sec TR max P.7 mmHg Interpretation Summary Left ventricular systolic function is normal. The estimated ejection fraction is 55 %. Apical false tendon noted. The left atrium is mildly enlarged. Moderate diffuse mitral valve thickening. 2D echocardiographic images appearing c/w redundant and / or ruptured chordae tendonae. Mild to moderate mitral valve prolapse. Mild-Moderate (1-2+) eccentric mitral valve insufficiency. Moderate (2+) tricuspid valve insufficiency. Mild diffuse aortic valve thickening. Mild focal aortic valve calcification. Mild-Moderate (1-2+) aortic valve insufficiency. Trivial pulmonic valve insufficiency. Trivial pericardial effusion. There are no echocardiographic indications of cardiac tamponade. Right ventricular systolic pressure estimated to be 31 mmHg. No evidence for diastolic dysfunction. Ordering Physician: Jakub Bradshaw Referring Physician: SUELLEN BUENO Performed By: Tami Ordaz RDCS
--- NOTE | 2020-11-08 08:16 | STRESSREP_ITS ---
Stress Test Report Date: 11-08-2020 Procedure: Pharmacologic stress nuclear imaging study Indications: Chest pain; CAD; PCI; cardiomyopathy Consent: Per the patient Procedure: The patient underwent pharmacologic (Regadenoson 0.4mg ) evaluation with a peak heart rate of 121 beats per minute (88%predicted maximal heart rate) and a peak blood pressure of 152/90 mmHg. The baseline ECG demonstrated sinus rhythm; PACs; right bundle branch block pattern. The peak pharmacologic ECG demonstrated no obvious ECG changes. There was an occasional PAC pretest and an occasional PVC in recovery. There was no complaint of chest discomfort during pharmacologic infusion or recovery. The examination was discontinued secondary to completion of protocol. Impression: 1. Pharmacologic (Regadenoson) evaluation 2. Peak pharmacologic ECG with no obvious ECG changes. 3. There was an occasional PACs pretest and occasional PVC in recovery. 4. Nuclear images pending Myocardial perfusion imaging study: Technique: The patient was injected with 11.1 millicuries of technetium 99m Cardiolite and subsequently rest SPECT Cardiolite nuclear imaging was obtained in the horizontal long, vertical long, and short axis views. The patient underwent pharmacologic (Regadenoson) evaluation with a peak heart rate of 121 beats per minute (88% percent predicted maximal heart rate) and a peak blood pressure of 152/90 mmHg. The patient was injected with 32.8 millicuries of technetium 99m Cardiolite and subsequently stress SPECT Cardiolite nuclear imaging was obtained in the horizontal long, vertical long, and short axis views. A gated Cardiolite study at peak stress was obtained. Interpretation: Rest and stress SPECT Cardiolite nuclear imaging status post realignment, normalization, and attenuation correction demonstrate at rest relative uniform tracer uptake and status post stress subtle diminished tracer uptake in the apical segments. There is end systolic thickening and brightening. The gated Cardiolite study demonstrates myocardial thickening and inward wall motion. The reported LVEF is 88%. Impression: 1. Rest and stress by current nuclear imaging demonstrate myocardial perfusion changes in the apical segments status post stress potentially compatible with an area of stress-induced myocardial ischemia, however, an element of physiologic a pical thinning cannot necessarily be excluded. 2. The gated Cardiolite study reports an LVEF of 88%. This note was generated with [employer] software. It may contain incorrect words, spelling, and punctuation that were not noted in checking the note before signing.
== END ==
PROVIDERS: PCP Internal Medicine; Referring Provider Internal Medicine Cardiovascular Disease; Visit Provider Internal Medicine Cardiovascular Disease
DX: R07.9 Chest pain, unspecified (principal); R07.2 Precordial pain; I25.10 Atherosclerotic heart disease of native coronary artery without angina pectoris; Z95.5 Presence of coronary angioplasty implant and graft
CPT/HCPCS: 78452; 93017; 93306; A9500; A4216; J2785

== ENCOUNTER 2020-12-08 23:33 | Emergency (ER) | payer MEDICARE, SELFPAY ==
[2019-02-27 14:50] VITALS: BMI 22.1
[2020-12-01 13:52] VITALS: BMI 21.9
[2020-12-08 23:34] VITALS: BP 154/93; PULSE 97; RESP 18; TEMP 36.2; O2SAT 99; BMI 22.4
--- NOTE | 2020-12-08 23:48 | ED.DCSUM_ITS ---
History of Present Illness Chief Complaint: Bite Detail of Chief Complaint: Bite left buttocks Informant: Patient, Significant Other Onset: Yesterday Context: Sudden Onset Timing: Continuous Quality: Bit by tick. Patient was in [facility] for the past severa Location: Left buttocks Current Severity: Mild Maximum Severity: Mild Worsened by: Nothing Relieved by: Nothing Associated Symptoms: No associated symptoms Narrative: Patient is a 85-year-old female who presents because of tick bite left buttocks. attempted to remove the tick. He was able to remove the body. When he attempted to remove the tick the head remained embedded in the left buttocks. She denies fever, chills night sweats. She denies nausea or vomiting. She denies rash. Reviewing her allergies she does not have an allergy to doxycycline. What she listed as a common side effect/adverse reaction i.e. upset stomach. Prior similar symptoms: No Recent Illness/Hospitalization: No - Past Medical History (1) NSTEMI (non-ST elevated myocardial infarction) Status: Resolved (2) Essential (primary) hypertension Status: Chronic (3) Pure hypercholesterolemia Status: Chronic (4) Diastolic dysfunction Status: Chronic (5) Nonrheumatic mitral valve insufficiency Status: Chronic (6) Nonrheumatic aortic valve insufficiency Status: Chronic (7) CHF (congestive heart failure) Status: Chronic Past Medical History - Allergies and Home Meds Allergies/Adverse Reactions: Allergies nitrofurantoin [From Macrobid] Allergy (Intermediate, Verified 12/08/20 23:37) thrush latex Allergy (Mild, Verified 12/08/20 23:37) Rash Penicillins [PCN] Allergy (Verified 12/08/20 23:37) not sure Kziocea-Rfs-Uyz Reductase Inhibitor Allergy (Verified 12/08/20 23:37) All blood cells low amoxicillin [From Augmentin] Adverse Reaction (Severe, Verified 12/08/20 23:37) syncope clavulanic acid [From Augmentin] Adverse Reaction (Severe, Verified 12/08/20 23:37) syncope carvedilol [From Coreg] Adverse Reaction (Intermediate, Verified 12/08/20 23:37) Very fatigued on smallest dose doxycycline Adverse Reaction (Verified 12/08/20 23:37) GI symptoms, emesis Sulfa (Sulfonamide Antibiotics) Adverse Reaction (Verified 12/08/20 23:37) Nausea/Vom/Diarrhea Primary Care Physician: Dori Boyd DO [Primary Care Provider] - Prior records reviewed: Yes Surgical History: angioplasty, appendectomy, cataract, dilatation and curettage, - - 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 Smoking Status: Never smoker Alcohol: None Drugs: None - Family History Maternal Family History: Family History (Last Reviewed 10/27/20 @ 10:43 by Emerita Cloud) Father CAD (coronary artery disease) Myocardial infarction Mother CVA (cerebral vascular accident) Brother Aneurysm Brother Heart disease Sister Afib Parkinson's disease Family History: Reports: Stroke Paternal Family History: Family History (Last Reviewed 10/27/20 @ 10:43 by Emerita Cloud) Father CAD (coronary artery disease) Myocardial infarction Mother CVA (cerebral vascular accident) Brother Aneurysm Brother Heart disease Sister Afib Parkinson's disease Family History: Reports: Heart Disease Sibling Family History: Family History (Last Reviewed 10/27/20 @ 10:43 by Emerita Cloud) Father CAD (coronary artery disease) Myocardial infarction Mother CVA (cerebral vascular accident) Brother Aneurysm Brother Heart disease Sister Afib Parkinson's disease Family History: Reports: Heart Disease, - - Aneurysm Review of Systems General: Denies: Chills, Fever, Malaise, Subjective, Sweats Eyes: Denies: Visual changes - bilaterally, Blurred Vision - bilaterally ENT: Denies: Rhinorrhea, Sore throat Cardiovascular: Denies: Chest pain, Palpitations Respiratory: Denies: Dyspnea, Cough, Dyspnea on exertion Gastrointestinal: Denies: Abdominal pain, Nausea, Vomiting, Diarrhea Musculoskeletal: Denies: Myalgias, Arthralgias, Neck pain, Back pain, Swelling, Extremity Pain Skin: Reports: Wounds. Denies: Rash Neurological: Denies: Headache, Weakness Endocrine: Denies: Polyuria, Polydipsia Hematologic: Denies: Easy bruising, Easy bleeding Physical Exam Vital Signs/Narrative: Vital Signs Temp Pulse Resp BP Pulse Ox 12/08/20 23:34 97.1 F L 97 18 154/93 H 99 Inital Vital Signs reviewed: Yes General: Well nourished, Well developed, No Acute Distress Head: Normocephalic, Atraumatic Eyes: Perrl, EOMI. Negative for: Pale conjunctiva Cardiovascular: Regular rate, Regular rhythm, No murmurs, Normal S1, Normal S2 Respiratory: No distress, CTA bilaterally Back: Nontender, Normal Inspection Extremities: Nontender, No edema Skin: Normal color, No rash. Negative for: Cyanosis, Diaphoresis, Jaundice Neurological: Alert, Oriented x3, Cranial nerves II-XII grossly intact, Normal Strength, Normal Sensation, Normal Gait Psychological: Normal affect Diagnostic/Tx/Re-eval - Medical Decision Making The head of the tick was removed using an 11 blade. There was minimal bleeding. There is no erythema around the bite site. There was no fluctuance or induration. Since the tick may have been in for greater than 24 hours she was treated with doxycycline. She has an allergy list and doxycycline is not listed. Furthermore, her reaction is a known side effect of doxycycline. Procedures Procedure(s): Removal of the head of the tick with a scalpel blade ED Disposition - Plan for ED Patient: Disposition: Home or Assisted Living Diagnosis: Tick bite of buttock Instructions: ED Tick Bite, Abx Tx Prescriptions: Doxycycline 100 mg PO BID #14 capsule Prescription Printed Referrals: Dori Boyd DO [Primary Care Provider] - 2 Days for wound check
[2020-12-09] MEDS: Doxycycline 100 MG CAPSULE PO (00:29)
--- NOTE | 2020-12-09 00:36 | ED.RN ---
pt given doxycycline PO, per Dr. Navarrete pt to drink water with each dose. pt teaching about s/s of lyme disease. pt understands.
== END 2020-12-09 00:37 | disposition home or self-care (01) ==
LOC: ED 12-09 00:15
PROVIDERS: Emergency Provider Emergency Medicine; PCP Internal Medicine
DX: S30.860A Insect bite (nonvenomous) of lower back and pelvis, initial encounter (principal); W57.XXXA Bitten or stung by nonvenomous insect and other nonvenomous arthropods, initial encounter; Y93.9 Activity, unspecified; Y92.9 Unspecified place or not applicable; Y99.9 Unspecified external cause status; I11.0 Hypertensive heart disease with heart failure; I50.9 Heart failure, unspecified; I34.0 Nonrheumatic mitral (valve) insufficiency; I35.1 Nonrheumatic aortic (valve) insufficiency; E78.00 Pure hypercholesterolemia, unspecified; I25.2 Old myocardial infarction; Z79.82 Long term (current) use of aspirin; Z79.899 Other long term (current) drug therapy
CPT/HCPCS: 10120; 99283

== ENCOUNTER 2021-01-24 07:54 | Day surgery (SDC) | payer MEDICARE, SELFPAY ==
[2019-02-27 14:50] VITALS: BMI 22.1
[2021-01-09 10:56] VITALS: BMI 21.7
[2021-01-09 13:02] LABS: Hemoglobin 13.6 g/dL (12.0-15.0); Mean Corp Hgb Conc 32.4 g/dL (32-36); Mean Corpuscular Hgb 29.2 pg (27.0-32.0); Mean Corpuscular Volume 90.1 fL (81-99); Mean Platelet Vol. 9.4 fl (6.2-12.0); Platelet Count 232 K/mm3 (150-450); RBC Distribution Width CV 13.7 % (11.6-14.6); RBC Distribution Width SD 45.5 fl (35.1-43.9); Red Blood Count 4.66 M/mm3 (4.2-5.4); White Blood Count 4.3 K/mm3 (4.4-11.0)
[2021-01-09 13:09] LABS: Prothrombin Time (Protime)PT. 12.5 SECONDS (11.7-14.9)
[2021-01-09 13:10] LABS: Partial Thromboplast Time 23.8 Seconds (24.1-36.2)
[2021-01-09 14:17] LABS: Anion Gap 3 (5-15); BUN 22 mg/dL (7-18); BUN/Creat Ratio 20.6 RATIO (10-20); Calcium,Total 9.8 mg/dL (8.5-10.1); Chloride 99 mmol/L (98-107); Creatinine, Serum 1.07 mg/dL (0.55-1.02); EST Glomerular Filtration Rate 52 mL/min (>60); Est Glom Filt Rate - Afr Amer 63 mL/min (>60); Glucose 71 mg/dL (74-106); Potassium 4.5 mmol/L (3.5-5.1); Sodium Level 133 mmol/L (136-145)
[2021-01-23 09:19] VITALS: BMI 21.7
--- NOTE | 2021-01-23 11:31 | HP.PCM_ITS ---
History and Physical Date of Admission: 01/24/21 [facility] [address] [place], [place] [address] OFFICE VISIT Date of Service:? 01/09/21 MR#: [id number] Acct: [id number] Name:HUBERT WHITE Rep #: [id number] : 1935 Provider: ?BEL Morales Age/Sex:? 85/F Location: [facility] Status: Signed HPI HPI History of Present Illness Surgical H&P: Yes Details: HUBERT DAVIS, is a 85 year old white female who presents to the office today for a cardiovascular outpatient follow-up with a history of coronary artery disease status post stenting to her pLAD on 02/27/2019 with a drug-eluting stent and PTCA/drug-eluting stent to proximal diagonal 1 and PTCA to mid LAD at bifurcation of diagonal on 03/08/2019, mitral regurgitation, aortic valve regurgitation, palpitations, hypertension, hyperlipidemia, and improved cardiomyopathy. She states feeling well. She states intermittent chest pain with stress. Pt denies arm, jaw, or neck discomfort. His exercise tolerance is stable. She stetes SOB with rest.? Pt denies symptoms of palpitations, lightheadedness, dizziness, near syncopal or syncopal episodes.? Pt denies claudication issues. She states bilateral lower extremity edema. Pt. denies orthopnea, PND, fever, chills, blood in urine, blood in stool, or myalgia. She states ongoing fatigue.? Intake Vital Signs ? 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 Required: No Accompanied by: None Is patient in pain?: No Allergies nitrofurantoin [From Macrobid] Allergy (Intermediate, Verified 01/09/21 11:26) thrushlatex Allergy (Mild, Verified 01/09/21 11:26) RashPenicillins [PCN] Allergy (Verified 01/09/21 11:26) not umyyUyvqmep-Dpn-Qgb Reductase Inhibitor Allergy (Verified 01/09/21 11:26) All blood cells lowamoxicillin [From Augmentin] Adverse Reaction (Severe, Verified 01/09/21 11:26) syncopeclavulanic acid [From Augmentin] Adverse Reaction (Severe, Verified 01/09/21 11:26) syncopecarvedilol [From Coreg] Adverse Reaction (Intermediate, Verified 01/09/21 11:26) Very fatigued on smallest dosedoxycycline Adverse Reaction (Verified 01/09/21 11:26) GI symptoms, emesisSulfa (Sulfonamide Antibiotics) Adverse Reaction (Verified 01/09/21 11:26) Nausea/Vom/Diarrhea Medications levothyroxine 25 mcg PO DAILY 12/13/15 [History Confirmed 01/09/21] colesevelam 625 mg tablet 1,250 mg PO DAILY? tab 12/15/19 [History Confirmed 01/09/21] losartan 25 mg tablet 12.5 mg PO DAILY #45 tab 03/08/20 [Rx Confirmed 01/09/21] aspirin 81 mg tablet,delayed release 81 mg PO BID? tab 08/24/20 [History Confirm ed 01/09/21] carvedilol 3.125 mg tablet 3.125 mg PO DAILY? tab 08/24/20 [History Confirmed 01/09/21] cholecalciferol (vitamin D3) 25 mcg (1,000 unit) tablet 1,000 unit PO DAILY? tab 08/24/20 [History Confirmed 01/09/21] Lactobacillus acidophilus 1 billion cell capsule 1,000 mmu cells PO Q OTHER DAY? cap 01/09/21 [History Confirmed 01/09/21] calcium carbonate 500 mg calcium (1,250 mg) tablet 500 mg PO DAILY 01/09/21 [History Confirmed 01/09/21] clopidogrel 75 mg tablet 75 mg PO DAILY #30 tab 01/09/21 [Rx Confirmed 01/09/21] coenzyme Q10 100 mg capsule 100 mg PO Q OTHER DAY? cap 01/09/21 [History Confirmed 01/09/21] cranberry 500 mg capsule 500 mg PO Q OTHER DAY? cap 01/09/21 [History Confirmed 01/09/21] mecobalamin (vitamin B12) 5,000 mcg disintegrating tablet mcg PO 01/09/21 [History Confirmed 01/09/21] Ejection fraction %: 55 to 59 PFSH Medical History? Atherosclerosis of [place] coronary artery of [place] heart without angina pectoris Cataract Chest pain CHF (congestive heart failure) Diastolic dysfunction Dyspnea Essential (primary) hypertension GERD (gastroesophageal reflux disease) Hx of congestive heart failure Non-rheumatic tricuspid valve insufficiency Nonrheumatic aortic valve insufficiency Nonrheumatic mitral valve insufficiency Nonrheumatic mitral valve prolapse Old myocardial infarction Presence of stent in coronary artery (~03/08/19) Pure hypercholesterolemia Troponin I above reference range Surgical History? History of appendectomy History of dilatation and curettage History of total adrenalectomy Presence of coronary angioplasty implant and graft (~03/08/19) S/P coronary artery stent placement (03/08/19) Family History? Father?? CAD (coronary artery disease) Myocardial infarctionMother CVA (cerebral vascular accident)Brother?? AneurysmBrother?? Heart diseaseSister Afib Parkinson's disease Social History? Smoking Status:? Never smoker? alcohol intake:? never? substance use type:? does not use? caffeine:? Yes Type: coffee Number of servings: 1? what type of physical activity do you participate in:? other details: [employer]? frequency:? 3-4 times per week? duration:? 45-60 minutes/day? seatbelt use:? always? do you feel safe at home:? Yes? ROS Const Const: Positive for fatigue;? Negative for weakness, headache(s), frequent falls, difficulty sleeping or excessive sweating Eyes Eyes: Negative for loss of peripheral vision, transient loss of vision, blurry vision, double vision or tunnel vision ENT ENT: Negative for headache(s), dizziness, Nosebleed/epistaxis or balance problems Cardio Chest Pain: Yes Frequency: other (relates to stress and fatigue) Character: other (pressure) Onset: other (stress and fatigue) Location: mid sternal and left chest (Around to back) Relieving: rest Palpitations: Yes feels like its: skipping Edema: Bilateral (Occasionally, mild) Muscle aches with walking: None Resp Respiratory: Positive for SOB at rest (At night, wakes up feeling like she needs to catch her breath);? Negative for SOB with activity, SOB orthopnea\SOB lying down, Cough or paroxysmal nocturnal dyspnea GI GI: Negative nausea, vomiting, heartburn or black,tarry stools : Negative for hematuria Musc Musc: Negative for muscle aches/ myalgia, muscle weakness, joint pain or balance problems Skin Skin: Negative non-healing lesions, rash or unusual bruising Neuro Neuro: Positive for lightheadedness (Occasionally);? Negative for dizziness, near syncope, syncope, frequent falls, headache(s), weakness, blurry vision, double vision or lack of coordination Duc Hematologic/Lymphatic: Negative for easy bleeding or easy bruising Endo Endo: Positive for fatigue;? Negative for excessive sweating or increased thirst/drinking Psych Psych: Negative for anxiety or depression Allergy Allergy/Immunology: Negative for hives and Negative for rash Cardiology Exam Const Appearance: cooperative, healthy appearing, comfortable and no acute distress Nutritional Appearance: average body habitus and well nourished Orientation: alert, awake and oriented x3 Head Head: normal to inspection Ears: hearing grossly normal bilaterally Nose: external nose normal Face and Sinus: face symmetric Mouth: oral mucosae normal Eyes General: appearance normal, both eyes and all related structures Eyelids: eyelids normal EOM: EOM intact bilaterally Neck Neck: normal visual inspection and no JVD Carotids: normal carotid upstroke Chest Chest inspection: normal inspection of the chest, symmetric chest movement and normal respiratory effort;? Negative cough Auscultation: Bilateral: Clear to Auscultation Cardio Rate: regular rate Rhythm: regular rhythm Heart sounds: S1 normal and S2 normal;? Negative rub, gallop or murmur GI GI: normal to inspection Neuro General: patient alert, patient awake, patient oriented x3 and CN's II-XI intact bilaterally Skin Skin: no rashes or lesions noted Extremities Pulses: Normal: Right Posterior Tibial Pulse, Left Posterior Tibial Pulse, Right Radial Pulse and Left Radial Pulse Lower Extremity Edema: None: Bilateral Psych Psychological: normal affect Assessment and Plan Assessment and Plan (1) Atherosclerosis of [place] coronary artery of [place] heart without angina pectoris:?Status:?Chronic ?Comment: IVUS guided PCI/OZIEL to prox LAD 02/27/19; PTCA/OZIEL to prox Diag #1 and PCI/OZIEL to Mid LAD at bifurcation of diag to ensure no struts from diag stent protruded into LAD 03/08/19 ?Plan - Galen Morales DISCHARGE SPECIALIST, DISCHARGE SPECIALIST-C:? Patient underwent a stress test on 11/08/2020 that was considered to be abnormal.? It was recommended proceed with left heart catheterization.? Initially, she was hesitant to proceed.? After discussion for the primary care physician, she wishes to proceed with heart catheterization.? She will begin Plavix therapy.? Based on results of her heart catheterization, further recommendation will be made. Her EKG today in office shows sinus rhythm with an incomplete right bundle branch block at a rate of 73 bpm, CA interval 152, QTc 4 8, QRS 106.? There was noted to be ventricular ectopic beat.? There is not appear to be any acute ST or T wave changes.? There is noted be T wave inversion in lead V1. (2) Presence of stent in coronary artery:?Status:?Chronic ?Comment: IVUS guided PCI/OZIEL to prox LAD 02/27/19; PTCA/OZIEL to prox Diag #1 and PCI/OZIEL to Mid LAD at bifurcation of diag to ensure no struts from diag stent protruded into LAD 03/08/19 ?Romario - Galen Morales DISCHARGE SPECIALIST, DISCHARGE SPECIALIST-C:? She will continue current medical therapy and we will continue to monitor.? She was asked to contact our office if she feels that her symptoms have progressed or worsened. (3) Nonrheumatic mitral valve insufficiency:?Status:?Chronic ?Romario Morales DISCHARGE SPECIALIST, DISCHARGE SPECIALIST-C:? Her most recent echocardiogram from October 2020 showed ejection fraction of 55%, mild to moderate mitral valve prolapse, and mild to moderate mitral valve insufficiency.? This appears stable on history and exam.? She will continue current medical therapy and we will continue to monitor through history, exam, and repeat echocardiogram as needed. (4) Nonrheumatic aortic valve insufficiency:?Status:?Chronic ?Romario Morales DISCHARGE SPECIALIST, DISCHARGE SPECIALIST-C:? Her most recent echocardiogram from October 2020 showed ejection fraction of 55% and mild to moderate aortic valve insufficiency.? This too appears stable on exam.? We will continue to monitor. (5) Essential (primary) hypertension:?Status:?Chronic ? ? ? Orders:?Orders: ? 12 Lead EKG performed by [facility] Today ?Plan - Galen Morales DISCHARGE SPECIALIST, DISCHARGE SPECIALIST-C:? Patient's blood pressure is well-controlled.? We will continue to monitor. We will not make any medication regimen changes. (6) Pure hypercholesterolemia:?Status:?Chronic ?Plan - Galen Morales DISCHARGE SPECIALIST, DISCHARGE SPECIALIST-C:? She will continue current cholesterol-lowering medication. Plan Details Other Medications: ?New: ? clopidogrel (Plavix) 75 mg? PO DAILY 30 tabs 11RF ? ? Other Orders: ?Orders: ? 12 Lead EKG performed by [facility] Today R07.2 , R94.39 ? Additional Comments: Thank you for allowing us to participate in the patients plan of care, if you have any questions please do not hesitate to call. This note was generated using a voice recognition system and there may be incorrect words, spelling or punctuation that were not noted when reviewing the office note prior to saving. Coding Level of Care Code Off vis,est,level 3 Diagnoses Atherosclerosis of [place] coronary artery of [place] heart without angina pectoris? I25.10 Presence of stent in coronary artery? Z95.5 Nonrheumatic mitral valve insufficiency? I34.0 Nonrheumatic aortic valve insufficiency? I35.1 Essential (primary) hypertension? I10 Pure hypercholesterolemia? E78.00 Coding Level of Care Code Off vis,est,level 3 Diagnoses Atherosclerosis of [place] coronary artery of [place] heart without angina pectoris? I25.10 Presence of stent in coronary artery? Z95.5 Nonrheumatic mitral valve insufficiency? I34.0 Nonrheumatic aortic valve insufficiency? I35.1 Essential (primary) hypertension? I10 Pure hypercholesterolemia? E78.00 Supplemental Info Supplemental Information Carotid duplex ultrasound from 09/09/2018: Interpretation Summary Mild (<50%) stenosis right extracranial internal carotid. Mild (<50%) stenosis left extracranial internal carotid. Flow within the vertebral arteries is antegrade bilaterally. Echocardiogram from 11/08/2020: Interpretation Summary Left ventricular systolic function is normal. The estimated ejection fraction is 55 %. Apical false tendon noted. The left atrium is mildly enlarged. Moderate diffuse mitral valve thickening. 2D echocardiographic images appearing c/w redundant and / or ruptured chordae tendonae. Mild to moderate mitral valve prolapse. Mild-Moderate (1-2+) eccentric mitral valve insufficiency. Moderate (2+) tricuspid valve insufficiency. Mild diffuse aortic valve thickening. Mild focal aortic valve calcification. Mild-Moderate (1-2+) aortic valve insufficiency. Trivial pulmonic valve insufficiency. Trivial pericardial effusion. There are no echocardiographic indications of cardiac tamponade. Right ventricular systolic pressure estimated to be 31 mmHg. No evidence for diastolic dysfunction. Echocardiogram from 03/06/2019: Interpretation Summary Segmental dysfunction with preserved ejection fraction (see wall motion). The estimated ejection fraction is 55 %. The left atrium is mildly enlarged. Mild diffuse mitral valve thickening. 2D echocardiographic images appearing c/w redundant and / or ruptured chordae tendonae. The mitral papillary muscle appears thickened and/or calcified. Mild to moderate mitral valve prolapse. Mild-Moderate (1-2+) eccentric mitral valve insufficiency. Moderate (2+) tricuspid valve insufficiency. Mild diffuse aortic valve thickening. Mild focal aortic valve calcification. Mild-Moderate (1-2+) aortic valve insufficiency. Trivial pericardial effusion. There are no echocardiographic indications of cardiac tamponade. Right ventricular systolic pressure estimated to be 26 mmHg. No evidence for diastolic dysfunction. Stress Test Report Date: 11-08-2020 Procedure: Pharmacologic stress nuclear imaging study Indications: Chest pain; CAD; PCI; cardiomyopathy Consent: Per the patient Procedure: The patient underwent pharmacologic (Regadenoson 0.4mg ) evaluation with a peak heart rate of 121 beats per minute (88%predicted maximal heart rate) and a peak blood pressure of 152/90 mmHg. The baseline ECG demonstrated sinus rhythm; PACs; right bundle branch block pattern.? The peak pharmacologic ECG demonstrated no obvious ECG changes. There was an occasional PAC pretest and an occasional PVC in recovery. There was no complaint of chest discomfort during pharmacologic infusion or recovery. The examination was discontinued secondary to completion of protocol. Impression: 1.? Pharmacologic (Regadenoson) evaluation 2.? Peak pharmacologic ECG with no obvious ECG changes. 3.? There was an occasional PACs pretest and occasional PVC in recovery. 4.? Nuclear images pending Myocardial perfusion imaging study: Technique: The patient was injected with 11.1 millicuries of technetium 99m Cardiolite and subsequently rest SPECT Cardiolite nuclear imaging was obtained in the horizontal long, vertical long, and short axis views. The patient underwent pharmacologic (Regadenoson) evaluation with a peak heart rate of 121 beats per minute (88% percent predicted maximal heart rate) and a peak blood pressure of 152/90 mmHg. The patient was injected with 32.8 millicuries of technetium 99m Cardiolite and subsequently stress SPECT Cardiolite nuclear imaging was obtained in the horizontal long, vertical long, and short axis views.? A gated Cardiolite study at peak stress was obtained. Interpretation: Rest and stress SPECT Cardiolite nuclear imaging status post realignment, normalization, and attenuation correction demonstrate at rest relative uniform tracer uptake and status post stress subtle diminished tracer uptake in the apical segments.? There is end systolic thickening and brightening.? The gated Cardiolite study demonstrates myocardial thickening and inward wall motion.? The reported LVEF is 88%. Impression: 1.? Rest and stress by current nuclear imaging demonstrate myocardial perfusion changes in the apical segments status post stress potentially compatible with an area of stress-induced myocardial ischemia, however, an element of physiologic apical thinning cannot necessarily be excluded. 2.? The gated Cardiolite study reports an LVEF of 88%. Heart catheterization from 03/08/2019: CONCLUSIONS Elevated Left Ventricular End Diastolic Pressure Normal LV size, wall motion,and systolic function LVEF: by LV gram 60 % [place] Multivessel CAD Aortic Root Aneurysm Mitral Valve Prolapse Mild RECOMMENDATIONS Risk factor modification Medical therapy Referred for immediate PCI CORONARY ANGIOGRAPHY DOMINANCE:? Right Dominant LEFT HEART ASSESSMENT Left Ventricular Ejection Fraction: by LV Gram 60 % Normal LV wall motion Elevated Left Ventricular End Diastolic Pressure LVEDP: 19 mmHg LEFT MAIN: Angiographically normal LEFT ANTERIOR DESCENDING ARTERY: PROX LAD: Previously placed stent is patent MID LAD: Mild luminal irregularities DIAGONAL 1: Proximal - 75 % Stenosis CIRCUMFLEX ARTERY: Mild luminal irregularities RIGHT CORONARY ARTERY: Diffuse: Eccentric: 25 % Stenosis VALVE FINDINGS: Normal Aortic Valve function Mitral Valve Prolapse Mild AORTIC ROOT: Aneurysm Cardiac intervention from 03/08/2018: CONCLUSIONS Successful PTCA/OZIEL proximal DIAG#1 with a 2.25 x 16 Promus Synergy; 75%-->0%, no dissection or encroachment into [place] LAD, confirmed with passage of 2.0 x 8 balloon. Successful PCI with PTCA to the mid LAD at bifurction of DIAG to ensure that no struts from DIAG stent protruded into LAD, utilizing a 2.0 x 8 Balloon at 12 sully. RECOMMENDATIONS Highly recommend quitting all tobacco products Follow up with primary meat lugger Risk factor modification ASA Indefinitley Plavix for at least 12 months Routine post interventional care Refer for Outpatient Cardiac Rehab Manual sheath removal per protocol Follow up with Dr. Bradshaw Successful Mynx Control closure of RFA. Labs:? No Data to Display Diagnostics:? Electrocardiogram ? Echocardiogram ? Stress Test NM ? Stress Test ? Chest X-Ray ? Pulmonary:? No Data to Display 01/09/21 0664 <Electronically signed by Galen Morales NP DISCHARGE SPECIALIST-C> Date Galen Morales NP DISCHARGE SPECIALIST-C The surgeon/proceduralist and patient have discussed in detail the risk of exposure to and/or potential harm posed by the COVID-19 virus with having a surgery/procedure at this time versus the risk of delaying the surgery/procedure.? It is not possible to know either the risk of delaying the surgery or procedure or chance of getting an infection with perfect accuracy, but a joint decision was made between the patient and the surgeon/proceduralist to proceed at this time with the scheduled surgery/procedure as indicated on the consent form. I have re-examined the patient. There are no clinical changes since date of exam.
--- NOTE | 2021-01-24 09:39 | CL.D_ITS ---
Patient Name: HUBERT DAVIS Study Date: 01/24/2021 Performing: Jakub Bradshaw MD Ht: 61.02 inches 155 cm : 1935 Wt: 114.64 lbs 52 kg Age: 85 Gender: female BSA: 1.49 PROCEDURE(S) PERFORMED AT43-TEH/COR/LV CLINICAL PROFILE AND INDICATIONS Indications: Worsening Angina, Suspected CAD Heart Failure: None Stress/Imaging Date: 11/08/2020tress Test with SPECT MPI: Positive Intermediate Risk Angina Classification Anginal Classification w/in 2 Weeks: CCS III CAD Presentations: Stable angina. CONCLUSIONS Elevated Left Ventricular End Diastolic Pressure Normal LV size, wall motion,and systolic function LVEF: by LV gram 60 % [place] Multivessel CAD LAD stent: patent DX stent: patent Aortic Root dilated appearing Mitral Valve Prolapse Mild RECOMMENDATIONS Risk factor modification Medical therapy DESCRIPTION OF PROCEDURE The patient arrived to the procedure lab. The risks and benefits of the procedure as well as a full d escription of our services here and current unavailability of surgical backup were fully explained to the patient and/or their significant other prior to the catheterization. The Timeout was completed, verifying the correct patient and procedure. The patient's procedural site was prepped and draped in the usual fashion. Local anesthetic was given subcutaneously to right radial region with Lidocaine 2% . Using a modified Seldinger technique, arterial access was obtained via the right radial artery, a 6 Fr sheath was inserted. Left Coronary Artery selective angiography was performed in multiple views u sing a 5 Fr. 4.0 [place] catheter. Right Coronary Artery selective angiography was then performed in mu ltiple views using a 5 Fr. 4.0 [place] catheter. Left Ventriculography was performed in HARRELL projection using a 5 Fr. [place] catheter. LV to AO pullback pressures were then recorded.The arterial sheath was pulled and a TR Band was applied for hemostasis 14cc air CORONARY ANGIOGRAPHY DOMINANCE: Right Dominant LEFT HEART ASSESSMENT Left Ventricular Ejection Fraction: by LV Gram 60 % Normal LV wall motion Elevated Left Ventricular End Diastolic Pressure LVEDP: 27 mmHg LEFT MAIN: Angiographically normal LEFT ANTERIOR DESCENDING ARTERY: PROX LAD: Previously placed stent is patent MID LAD: Mild luminal irregularities DIAGONAL 1: Proximal - Previously placed stent is patent CIRCUMFLEX ARTERY: Mild luminal irregularities RIGHT CORONARY ARTERY: diffuse: 25 % Stenosis VALVE FINDINGS: Mitral Valve Prolapse Mild AORTIC ROOT: Dilated appearing COMPLICATIONS No Complications PROCEDURE MEDICATIONS Fentanyl 25 mcg IV Versed 0.5 mg IV Versed 0.5 mg IV Fentanyl 25 mcg IV Oxygen: 2 L/min via nasal cannula SUMMARY OF HEMODYNAMIC DATA Time AIR REST ECG 08:13:47 Art 178/70 (109) 08:54:51 AO 145/81 (113) SA 09:04:57 LV 167/-2, 30 09:13:26 LV 167/-7, 27 09:13:32 LV 168/-7, 28 09:14:25 LV 168/-6, 30 09:14:31 LVp 170/-9, 29 09:14:35 AOp 158/73 (112) 09:14:40 AO 167/79 (119) 09:14:55 Signed By Jakub Bradshaw MD On 01/24/2021 09:38:04 Jakub Bradshaw MD
== END 2021-01-24 11:18 | disposition home or self-care (01) ==
PROVIDERS: PCP Internal Medicine; Referring Provider Internal Medicine Cardiovascular Disease; Visit Provider Internal Medicine Cardiovascular Disease
DX: I25.119 Atherosclerotic heart disease of native coronary artery with unspecified angina pectoris (principal); I11.0 Hypertensive heart disease with heart failure; I50.9 Heart failure, unspecified; I35.1 Nonrheumatic aortic (valve) insufficiency; I34.0 Nonrheumatic mitral (valve) insufficiency; I34.1 Nonrheumatic mitral (valve) prolapse; I42.9 Cardiomyopathy, unspecified; E78.5 Hyperlipidemia, unspecified; R60.0 Localized edema; K21.9 Gastro-esophageal reflux disease without esophagitis; R94.39 Abnormal result of other cardiovascular function study; Z79.02 Long term (current) use of antithrombotics/antiplatelets; Z79.82 Long term (current) use of aspirin; Z79.890 Hormone replacement therapy; Z79.899 Other long term (current) drug therapy; I25.2 Old myocardial infarction; Z95.5 Presence of coronary angioplasty implant and graft
CPT/HCPCS: 36415; 80048; 85027; 85610; 85730; 93458; 99152; 99153; J7040; Q9967; C1769; C1894

== ENCOUNTER → 2021-05-16 08:33 | Outpatient (CLI) | payer MEDICARE, SELFPAY ==
[2019-02-27 14:50] VITALS: BMI 22.1
--- NOTE | 2021-05-16 08:43 | RAD_ITS ---
STUDY: X-RAY - ESOPHAGUS (BARIUM SWALLOW) WITH FLUOROSCOPY REASON FOR EXAM: Female, 85 years old. DYSPHAGIA/UNSPECIFIED TECHNIQUE: 21 view(s) of the esophagus were obtained following swallowing of barium. FLUOROSCOPY TIME (if supplied): (24 seconds) minutes/seconds COMPARISON: Comparison is made with prior study dated 12/23/2017. FINDINGS: There is no demonstrated esophageal foreign body. There is no demonstrated stricture or mucosal abnormality. Normal gastroesophageal junction, without a demonstrated hiatal hernia. The patient ingested a 12 mm tablet of barium without any difficulty. There is atherosclerotic tortuosity of the aortic arch and descending thoracic aorta. Normal visualized pulmonary parenchyma. Normal visualized osseous structures of the thorax. RAD/Esophagus Dual Contrast IMPRESSION: Normal plain film x-ray examination (barium swallow) of the esophagus. Electronically Signed: Michael Persaud MD at 9:17 EDT , Service support ,
== END ==
PROVIDERS: PCP Internal Medicine; Referring Provider Internal Medicine; Visit Provider Internal Medicine
DX: R13.10 Dysphagia, unspecified (principal)
CPT/HCPCS: 74221

== ENCOUNTER → 2022-01-12 | Outpatient (CLI) | payer MEDICARE, SELFPAY ==
[2019-02-27 14:50] VITALS: BMI 22.1
--- NOTE | 2022-01-12 08:52 | ECHOD_ITS ---
Reason For Study: MVP Procedure This was a 2D Doppler, Color Flow transthoracic echocardiogram. The exam was of adequate technical quality. Exam performed in department. Left Ventricle Normal LV size. Mid cavitary false tendon noted. Left ventricular systolic function is normal. The estimated ejection fraction is 60 %. Diastolic function is indeterminate. No regional wall motion abnormalities noted. Right Ventricle Normal RV size. Normal systolic function. Atria The left atrium is mildly enlarged. Normal right atrium. No doppler evidence for ASD. Mitral Valve There is no mitral annular calcification. Mild diffuse mitral valve thickening. Mild mitral valve prolapse. Mild-Moderate (1-2+) eccentric mitral valve insufficiency. Tricuspid Valve Normal tricuspid valve. Moderate (2+) tricuspid valve insufficiency. Right ventricular systolic pressure estimated to be 44 mmHg. Aortic Valve Trisinus/trileaflet aortic valve. Mild diffuse aortic valve thickening. Mild focal aortic valve calcification. Mild-Moderate (1-2+) aortic valve insufficiency. Pulmonic Valve The pulmonic valve is not well visualized. Mild (1+) pulmonic valve insufficiency. Great Vessels Normal sized aortic root. Pericardium/Pleural No pericardial effusion. MMode/2D Measurements & Calculations LVIDd: 4.7 cm IVSd: 0.75 cm Ao root diam: 2.8 cm LVIDs: 3.6 cm LVPWd: 1.1 cm RVDd: 2.1 cm FS: 21.7 % LAV(MOD-bp): 42.3 ml LVAd ap4: 23.0 cm2 SV(MOD-sp4): 32.2 ml LAV(MOD-bp) Indexed: 27.8 ml/m2 LVLd ap4: 6.5 cm LAV(MOD-sp2): 42.3 ml EDV(MOD-sp4): 68.0 ml LAV(MOD-sp4): 37.8 ml EDV(sp4-el): 69.0 ml LVAs ap4: 15.1 cm2 LVLs ap4: 5.5 cm ESV(MOD-sp4): 35.7 ml ESV(sp4-el): 35.2 ml EF(MOD-sp4): 47.5 % EF(sp4-el): 49.0 % SV(sp4-el): 33.8 ml LA A4 area: 16.1 cm2 LA dimension(2D): 3.6 cm RA A4 area: 15.7 cm2 Doppler Measurements & Calculations MV E max bradford: 65.8 cm/sec Lat Peak E' Bradford: 8.2 cm/sec Med Peak E' Bradford: 5.2 cm/sec MV A max bradford: 59.3 cm/sec E/E' lat: 8.0 E/E' med: 12.7 MV E/A: 1.1 Ao V2 max: 138.9 cm/sec AI max bradford: 526.2 cm/sec LV V1 max: 94.4 cm/sec Ao max P.7 mmHg AI max P.2 mmHg LV V1 max P.6 mmHg Ao V2 mean: 91.3 cm/sec Ao mean P.7 mmHg AI dec slope: 423.7 cm/sec2 Ao V2 VTI: 25.7 cm AI P1/2t: 363.7 msec PA V2 max: 84.7 cm/sec TR max bradford: 298.3 cm/sec TR max P.6 mmHg ECHO/Echo Complete Interpretation Summary Left ventricular systolic function is normal. The estimated ejection fraction is 60 %. Mid cavitary false tendon noted. The left atrium is mildly enlarged. Mild diffuse mitral valve thickening. Mild mitral valve prolapse. Mild-Moderate (1-2+) eccentric mitral valve insufficiency. Moderate (2+) tricuspid valve insufficiency. Mild diffuse aortic valve thickening. Mild focal aortic valve calcification. Mild-Moderate (1-2+) aortic valve insufficiency. Mild (1+) pulmonic valve insufficiency. Right ventricular systolic pressure estimated to be 44 mmHg. Diastolic function is indeterminate. Ordering Physician: Jakub Bradshaw Referring Physician: Dori Boyd Performed By: Yasmine Morales, DESTINEY, RVT
== END | disposition home or self-care (01) ==
LOC: CVS 08:39
PROVIDERS: PCP Internal Medicine; Referring Provider Internal Medicine Cardiovascular Disease; Visit Provider Internal Medicine Cardiovascular Disease
DX: R07.2 Precordial pain (principal); I38 Endocarditis, valve unspecified
CPT/HCPCS: 93306

== ENCOUNTER → 2022-01-15 | Outpatient (CLI) | payer MEDICARE, SELFPAY ==
[2019-02-27 14:50] VITALS: BMI 22.1
--- NOTE | 2022-01-15 09:58 | CDU_ITS ---
Reason For Study: Bilateral carotid atherosclerosis Rt. Velocities/BP Lt. Velocities/BP Prox CCA 72.1/10.8 cm/sec. Prox CCA 84.9/14.6 cm/sec. Mid CCA 54.2/11.3 cm/sec. Mid CCA 65.1/14.6 cm/sec. Dist CCA 47.6/11.3 cm/sec. Dist CCA 45.4/10.2 cm/sec. Prox ICA 59.7/12.4 cm/sec. Prox ICA 40.9/12.6 cm/sec. Mid ICA 64/20.1 cm/sec. Mid ICA 58.9/20.1 cm/sec. Dist ICA 92.5/28.6 cm/sec. Dist ICA 99.8/32.3 cm/sec. Rt. ICA/CCA = 1.71. Lt. ICA/CCA = 1.53. Prox ECA 52/10.2 cm/sec. Prox ECA 47.5/6.9 cm/sec. Rt. Vert. 35.2/10.7 cm/sec. Lt. Vert. 38.1/9.7 cm/sec. Right Extracranial There is homogeneous, smooth atherosclerotic plaque noted in the right common carotid artery. There is heterogeneous, irregular atherosclerotic plaque noted in the right internal carotid artery. There is intimal thickening but no significant atherosclerotic plaque noted in the right external carotid artery. Antegrade flow is noted in the right vertebral artery. Left Extracranial There is homogeneous, smooth atherosclerotic plaque noted in the left common carotid artery. There is homogeneous, smooth atherosclerotic plaque noted in the left internal carotid artery. There is intimal thickening but no significant atherosclerotic plaque noted in the left external carotid artery. Antegrade flow is noted in the left vertebral artery. Procedure Carotid Duplex 86615. This is a Carotid Duplex examination using B-mode, color flow and specral Doppler. Exam performed in department. VL/Carotid Duplex Ultrasound Interpretation Summary Mild (<50%) stenosis right extracranial internal carotid. Mild (<50%) stenosis left extracranial internal carotid. Flow within the vertebral arteries is antegrade bilaterally. Ordering Physician: Dori Boyd Referring Physician: Dori Boyd Performed By: Melissa Ortega RVT
== END | disposition home or self-care (01) ==
LOC: CVS 09:53
PROVIDERS: PCP Internal Medicine; Referring Provider Internal Medicine; Visit Provider Internal Medicine
DX: I65.23 Occlusion and stenosis of bilateral carotid arteries (principal)
CPT/HCPCS: 93880

== ENCOUNTER → 2022-02-26 | Outpatient (CLI) | payer MEDICARE, SELFPAY ==
[2019-02-27 14:50] VITALS: BMI 22.1
--- NOTE | 2022-02-27 07:28 | PFT ---
INTRODUCTION: The patient is an 86-year-old female that presents for pulmonary function studies secondary to a diagnosis of pulmonary hypertension. Respiratory therapy reported good patient effort. Bronchodilators were used during testing. INTERPRETATION: Forced expiration spirometry demonstrates the presence of a mild large airways obstructive ventilatory defect. There was no significant response to aerosolized bronchodilators. Spirograms are of good quality and plateau gradually indicating slow emptying of the lungs. Body plethysmography was performed and revealed an elevated RV to 138% of predicted, indicative of underlying air trapping. Diffusing capacity by single breath CO was within normal limits. IMPRESSION: Irreversible mild large airways obstructive ventilatory defect with associated air trapping and preserved diffusing capacity.
== END | disposition home or self-care (01) ==
LOC: PSN 10:30
PROVIDERS: PCP Internal Medicine; Referring Provider Internal Medicine Critical Care Medicine; Visit Provider Internal Medicine Critical Care Medicine
DX: I27.20 Pulmonary hypertension, unspecified (principal)
CPT/HCPCS: 94060; 94726; 94729

== ENCOUNTER 2022-07-13 13:30 | Outpatient (RCR) | payer MEDICARE, SELFPAY ==
[2019-02-27 14:50] VITALS: BMI 22.1
--- NOTE | 2022-06-18 15:01 | HP.PTEVAL ---
Patient's Visit Information HUBERT DAVIS is a 87 year old F referred to Physical Therapy by Dr. Dori Boyd DO with a diagnosis of SI JT PAIN AND PIRIFORMIS SYNDROME. Date of Evaluation: 06/18/22 Physical Therapist: Lashanda Sterling PT, Cert MDT - Visit Plan Frequency: 2-3x /Week Duration: 4-6 Weeks Plan: RIGHT HIP STM, POSTURE CORRECTION/STRENGTHENING, INSTRUCTION IN APPROPRIATE BODY MECHANICS AND ACTIVITY MODIFICATIONS. DLS STARTING WITH A NEUTRAL SPINE PROGRESSING ROM TOLERATED. MACARIO LE ROM, STRETCHING AND STRENGTHENING. HEP INSTRUCTION. - Subjective Work/Leisure: RETIRED. LIVES IN A TRILEVEL HOME AND HAS A LADY THAT HELPS HER WITH SWEEPING. Present symptoms: RIGHT HIP PAIN. SOMETIMES MY WHOLE LEG ACHES. SOMETIMES R GROIN PAIN. Present since: THE PAIN CAME ON GRADUALLY AND IT STARTED GETTING WORSE ABOUT 3 MONTHS AGO. Pain Scale: WORST 4/10, LEAST 1/10. Currently: /10. Commenced as a result of: NO APPARENT REASON. Symptoms at onset: RIGHT HIP PAIN. Worse: TRYING TO CROSS R LEG OVER LEFT, PUTTING R SHOE AND SOCK ON. STOOPING OVER AND LIFTING AN OBJECT, LIFTING RIGHT LEG IN STANDING. STEPS (LIVES IN A SPLIT LEVEL HOME). Better: SITTING. Disturbed sleep: YES. I CAN'T LAY ON IT. Previous history/Previous treatment: NO BACK SURGERY. NO HIP SURGERY. NO BACK OR HIP INJECTIONS. NO PRIOR BACK OR HIP CHIROPRACTIC OR PHYSICAL THERAPY TREATMENTS. Treatment this episode: PATIENT REPORTS HER DOCTOR RECOMMENDED SOME KIND OF SHOTS BUT PATIENT REQUESTED PHYSICAL THERAPY FIRST AND DOCTOR WAS AGREEABLE. PATIENT REPORTS SHE IS TAKING TYLONOL AND IT HELPS A LITTLE BIT. Coughing/sneezing/straining: NEGATIVE. Gait: PATIENT REPORTS SOMETIMES HER R HIP HURTS MORE THAN OTHERS AND HER WALKING IS OK SOMETIMES BUT SOMETIMES SHE LIMPS ON IT. PATIENT REPORTS SHE DOES NOT FEEL LIKE SHE IS GOING TO FALL AND SHE DOES NOT WANT TO USE A CANE. Bowel or Bladder Dysfunction: NO. Accidents: NO. Unexplained weight loss: NO. Imaging: NONE RECENT. PMH/Recent major surgery: 2 HEART STENDS ABOUT 3 YEARS AGO. OTHER: LIVES WITH WHOM IS INDEP IN SELF CARE. - Objective Sitting/Standing Posture: POOR. FH. RSH'S. NO RELEVENT LATERAL LUMBAR SHIP. DECREASED LORDOSIS. RIGHT ILIAC CREST HIGHER THAN LEFT. Active Correction of posture: WORSE. Other Observations: THIS PATIENT AMBULATES INDEP'LY INTO PT WITH DECREASED CADANCE. DECREASED MACARIO STRIDE LENGTH AND A MILD LIMP ON THE RIGHT LE. PATIENT IS ABLE TO INDEP'LY TRANSFER FROM SIT TO STAND WITHOUT UE ASSIST. Sensory deficit: MACARIO LE LIGHT TOUCH SENSATION IS GROSSLY INTACT AND SYMMETRICAL. ROM deficit: PAIN AND TIGHTNESS WITH LEFT HIP ROM TESTING ALL PLANES ESPECIALL R HIP INTERNAL AND EXTERNAL ROTATION TESTING. RIGHT HIP FLEX TO 100 DEG AND L 120 DEG. ERP RIGHT. Motor deficit: LLE 5/5 WITH MMT'ING EXCEPT HIP 4/5. RLE: HIP 3+/5, KNEE 4/5, ANKLE 5/5. Dural Signs: NEGATIVE MACARIO LE'S. Lumbar mvmt loss: flex - MIN. ext - JENNIFER. R SG - JENNIFER. L SG - MOD TO JENNIFER. Core strength: POOR. Palpation: NO ACUTE TENDERNESS OF LUMBAR, SACRAL, MACARIO SI JT REGIONS, MACARIO BUTTOCK OR MACARIO HIP REGIONS. OTHER: POSITIVE SHON RIGHT LE. NEGATIVE LEFT. THIS PT RECOMMENDS CANE TO ASSIST RIGHT LE, TO DECREASE PAIN AND TO TRY TO HELP AVOID FALLING. - Balance/Special Test Scores Oswestry Low Back Score: 16 - Goals Goal 1:: DECREASE C/O RIGHT HIP AND LE PAIN Goal Time Frame: 4-6 Weeks Goal 2:: IMPROVE PERSONAL CARE, WALKING, STANDING, SOCIAL LIFE, TRAVEL AND HOMEMAKING FUNCTION Goal Time Frame: 4-6 Weeks Goal 3:: INSTRUCT IN PROPHYLAXIS Goal Time Frame: 4-6 Weeks - Anticipated Interventions Patient/Client Instruction: Educate patient on: Condition, Plan of Care, Risk Factors For the Purpose of:: To improve self management Therapeutic Exercise to Include: Strength training, Body mechanics, Postural training, Flexibilty training, Gait and locomotor training, Neuromotor development, Dynamic Lumbar Stabilization For the Purpose of:: To decrease pain, To increase ROM, To improve muscle performance and motor function, To increase tolerance to activity/condition/position, To improve ability of physical actions for home/community/work/leisure, To improve gait and locomotor functions Manual Therapy Techniques to Include: Soft tissue mobilization For the Purpose of:: To decrease pain, To improve nutrient delivery to tissue Thank you for the opportunity to evaluate your patient. For Medicare and Medicare HMO plans, please review the plan of care and approve it. It will need to be FAXED BACK to us at [phone] for Medicare purposes. For Medicare only, by signing this I certify the plan of care. Please let me know if there are questions or concerns regarding this plan of care. Physician Signature: Date:
--- NOTE | 2022-07-13 14:01 | HP.PTREVAL ---
Dr. Dori Bueno, DO, It has been my pleasure to treat HUBERT DAVIS over the last 5 visits for SI JT PAIN AND PIRIFORMIS SYNDROME. Please see the progress note below for an update on the physical therapy plan of care! Subjective: PATIENT REPORTS THAT AFTER EA EX SESSION SHE FEELS A LITTLE BETTER FOR A FEW HOURS BUT THEN THE PAIN COMES BACK AND ISN'T BETTER OVER-ALL. SHE REPORTS IT IS GETTING HARDER TO GET IN AND OUT OF THE TUB AND IT IS GETTING HARDER TO GET HER R LEG IN AND OUT OF THE CAR. BETTER WITH REST AND WORSE WITH STANDING AND WALKING. SHE REPORTS SHE CALLED DR. BUENO'S OFFICE YESTERDAY BECAUSE SHE WAS REALLY HURTING BUT IT WAS AFTER 4PM. SHE LEFT A MESSAGE AND THE NURSE TOLD HER TO CALL BACK WHEN THEY RE-OPENED BUT SHE DIDN'T. PATIENT REPORTS SHE HAS BEEN TRYING TO DO HER HOME EX'S BUT SHE IS LIMITED BY THE PAIN. Objective/Function: PATIENT WAS SEEN TODAY FOR RE-ASSESSMENT OF PROGRESS TOWARD THE SET PT GOALS AND THE NEED FOR FURTHER PHYSICAL THERAPY VS READINESS FOR DISCHARGE. PATIENT IS NOT IMPROVING. ALTHOUGH SHE GETS SOME TEMPORARY RELIEF AFTER PT SESSIONS SHE IS NOT FUNCTIONALLY IMPROVING AND PHYSICIAN RE-CHECK IS RECOMMENDED. PATIENT IS AGREEABLE AND WILL TRY TO CONTACT DR. BUENO AGAIN TODAY OR SEEK MEDICAL ATTENTION AT URGENT CARE. UPON EXAM TODAY THERE ARE NO SIGNIFICANT CHANGES SINCE INITIAL EVAL. Plan Plan: PHYSICIAN RE-ASSESSMENT. Balance/Gait/Functional tests - Balance/Special Test Scores Oswestry Low Back Score: 22 Goals Goal 1:: DECREASE C/O RIGHT HIP AND LE PAIN Goal Time Frame: 4-6 Weeks Goal Progress: Not Progressing Goal 2:: IMPROVE PERSONAL CARE, WALKING, STANDING, SOCIAL LIFE, TRAVEL AND HOMEMAKING FUNCTION Goal Time Frame: 4-6 Weeks Goal Progress: Not Progressing Goal 3:: INSTRUCT IN PROPHYLAXIS Goal Time Frame: 4-6 Weeks Goal Progress: Not Progressing Anticipated Interventions Patient/Client Instruction: Educate patient on: Condition, Plan of Care, Risk Factors For the Purpose of:: To improve self management Therapeutic Exercise to Include: Strength training, Body mechanics, Postural training, Flexibilty training, Gait and locomotor training, Neuromotor development, Dynamic Lumbar Stabilization For the Purpose of:: To decrease pain, To increase ROM, To improve muscle performance and motor function, To increase tolerance to activity/condition/position, To improve ability of physical actions for home/community/work/leisure, To improve gait and locomotor functions Manual Therapy Techniques to Include: Soft tissue mobilization For the Purpose of:: To decrease pain, To improve nutrient delivery to tissue Please do not hesitate to contact me at [phone] by phone or if you have questions or concerns regarding this new plan of care! Sincerely, Lashanda Sterling, PT, Cert MDT
--- NOTE | 2022-11-29 11:21 | HP.PTDCSUM ---
It has been my pleasure to treat HUBERT DAVIS referred by Dr. Dori Bueno, DO, with the diagnosis of SI JT PAIN AND PIRIFORMIS SYNDROME for a total of 5 visit(s). Discharge Date: Please see the following information for a summary of their discharge status. Subjective: PATIENT REPORTS THAT AFTER EA EX SESSION SHE FEELS A LITTLE BETTER FOR A FEW HOURS BUT THEN THE PAIN COMES BACK AND ISN'T BETTER OVER-ALL. SHE REPORTS IT IS GETTING HARDER TO GET IN AND OUT OF THE TUB AND IT IS GETTING HARDER TO GET HER R LEG IN AND OUT OF THE CAR. BETTER WITH REST AND WORSE WITH STANDING AND WALKING. SHE REPORTS SHE CALLED DR. BUENO'S OFFICE YESTERDAY BECAUSE SHE WAS REALLY HURTING BUT IT WAS AFTER 4PM. SHE LEFT A MESSAGE AND THE NURSE TOLD HER TO CALL BACK WHEN THEY RE-OPENED BUT SHE DIDN'T. PATIENT REPORTS SHE HAS BEEN TRYING TO DO HER HOME EX'S BUT SHE IS LIMITED BY THE PAIN. RIGHT HIP Pain Intensity (Out of 10): 4 RIGHT LATERAL THIGH Pain Intensity (Out of 10): 4 RIGHT LATERAL LEG Pain Intensity (Out of 10): 4 % Improvement: 0 Objective/Function: PATIENT WAS SEEN TODAY FOR RE-ASSESSMENT OF PROGRESS TOWARD THE SET PT GOALS AND THE NEED FOR FURTHER PHYSICAL THERAPY VS READINESS FOR DISCHARGE. PATIENT IS NOT IMPROVING. ALTHOUGH SHE GETS SOME TEMPORARY RELIEF AFTER PT SESSIONS SHE IS NOT FUNCTIONALLY IMPROVING AND PHYSICIAN RE-CHECK IS RECOMMENDED. PATIENT IS AGREEABLE AND WILL TRY TO CONTACT DR. BUENO AGAIN TODAY OR SEEK MEDICAL ATTENTION AT URGENT CARE. UPON EXAM TODAY THERE ARE NO SIGNIFICANT CHANGES SINCE INITIAL EVAL. Goal 1:: DECREASE C/O RIGHT HIP AND LE PAIN Goal Progress: Not Progressing Goal 2:: IMPROVE PERSONAL CARE, WALKING, STANDING, SOCIAL LIFE, TRAVEL AND HOMEMAKING FUNCTION Goal Progress: Not Progressing Goal 3:: INSTRUCT IN PROPHYLAXIS Goal Progress: Not Progressing Plan: PHYSICIAN RE-ASSESSMENT. If there are questions or concerns regarding this patient's physical therapy, please feel free to call me at [phone]. Thank you for the referral of this patient. Sincerely, Lashanda Sterling, PT, Cert MDT Balance/Gait/Functional tests - Balance/Special Test Scores Oswestry Low Back Score: 22
== END 2022-07-13 19:00 | disposition home or self-care (01) ==
LOC: PT 13:30
PROVIDERS: PCP Internal Medicine; Referring Provider Internal Medicine; Visit Provider Internal Medicine
DX: G57.00 Lesion of sciatic nerve, unspecified lower limb; M46.1 Sacroiliitis, not elsewhere classified
CPT/HCPCS: 97110; 97140; 97162; 97164; 97530

== ENCOUNTER → 2022-08-15 | Outpatient (CLI) | payer MEDICARE, SELFPAY ==
[2019-02-27 14:50] VITALS: BMI 22.1
--- NOTE | 2022-08-15 13:15 | MRI_ITS ---
STUDY: MRI LUMBAR SPINE WITHOUT CONTRAST REASON FOR EXAM: Female, 87 years old patient with low back pain. TECHNIQUE: Standardized fat and water weighted pulse sequences were obtained in the sagittal and axial planes. COMPARISON: Radiographs of the lumbar spine dated July 19, [address] of the abdomen and pelvis dated March 10, 2019. FINDINGS: T12-L1: There is mild annular disk bulge and osteophyte complex. There is mild degenerative arthropathy of the facet joints. Bilateral neuroforamina are narrowed without MR evidence for nerve impingement. There is no appreciable acquired central canal stenosis. Normal lumbar lordosis. There is mild curvature of the thoracolumbar spine with convexity towards the left. Normal conus medullaris that terminates at the T12-L1 level. L1-2: There is moderately large annular disk bulge and osteophyte complex. There are small Schmorl''s nodes at the endplates. There is mild degenerative arthropathy of the facet joints. Bilateral neuroforamina are narrowed without MR evidence for nerve impingement. There is mild acquired central canal stenosis. L2-3: There is moderately large annular disk bulge and osteophyte complex. There is abnormal T1 and T2 hyperintensity at the endplates consistent with chronic discogenic changes. There is moderately severe degenerative arthropathy of the facet joints. Bilateral neuroforamina are moderately narrowed without MR evidence for nerve impingement. There is no appreciable acquired central canal stenosis. L3-4: There is moderately large annular disk bulge and osteophyte complex. There is mild degenerative arthropathy of the facet joints. Bilateral neuroforamina are narrowed without MR evidence for nerve impingement. There is mild acquired central canal stenosis. L4-5: There is a moderately large broad central disc protrusion. There is an annular disc bulge. There is abnormal signal in the endplates suggestive chronic discogenic changes. There is moderate degenerative arthropathy of the facet joints. There is thickening of ligamentum flavum. There is moderately severe central canal stenosis and potential impingement of the L5 nerve roots at the lateral recesses. L5-S1: There is mild annular disk bulge and osteophyte complex. There is a broad central disc protrusion. There is mild degenerative arthropathy of the facet joints. Bilateral neuroforamina are narrowed without MR evidence for nerve impingement. There is no appreciable acquired central canal stenosis. 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 Normal visualized sacral ala. There is moderate paraspinal muscular atrophy. There are bilateral renal cysts. The largest cyst is on the left and measures approximately 4.2 cm. MRI/Spine Lumbar (Routine) IMPRESSION: Moderately severe multilevel degenerative changes of lumbar spine with neuroforaminal narrowing, central canal stenosis and potential nerve impingement, as described. Electronically Signed: Phylicia Vargas MD at 3:26 EST ,
== END | disposition home or self-care (01) ==
PROVIDERS: PCP Internal Medicine; Referring Provider Internal Medicine; Visit Provider Internal Medicine
DX: M54.50 Low back pain, unspecified (principal)
CPT/HCPCS: 72148

== ENCOUNTER → 2022-10-02 | Outpatient (CLI) | payer MEDICARE, SELFPAY ==
[2019-02-27 14:50] VITALS: BMI 22.1
[2022-10-02 15:17] LABS: Mucous, Urine 0 SEEN /hpf (<or=2+); Red Blood Cells-Urine 0 SEEN /hpf (0-5)
[2022-10-02 18:23] LABS: Absolute Lymphocyte Count 0.71 X10^3/uL (0.83-4.51); Absolute Neutrophil Count 3.7 X10^3/uL (2.0-7.7); Basophil# 0.02 X10^3/uL; Basophil% 0.4 % (0-1); Eosinophil# 0.08 X10^3/uL; Eosinophils% 1.6 % (0-5); Hemoglobin 11.7 g/dL (12.0-15.0); Lymphocyte # 0.71 X10^3/ul (0.83-4.51); Lymphocyte % 13.8 % (19-41); Mean Corp Hgb Conc 32.5 g/dL (32-36); Mean Corpuscular Hgb 28.9 pg (27.0-32.0); Mean Corpuscular Volume 88.9 fL (81-99); Monocyte# 0.66 X10^3/uL; Monocyte% 12.8 % (0-10); NRBC Flagged by Analyzer 0 % (0-5); Neutrophil # 3.65 X10^3/uL (2.7-7.7); Platelet Count 222 K/mm3 (150-450); RBC Distribution Width CV 13.3 % (11.6-14.6); RBC Distribution Width SD 43.7 fl (35.1-43.9); Red Blood Count 4.05 M/mm3 (4.2-5.4); White Blood Count 5.1 K/mm3 (4.4-11.0)
[2022-10-02 18:31] LABS: Color, Urine Yellow (Yellow); Glucose, Dipstick Normal (Normal); Ketone-Dipstick Negative (Negative); Leukocyte Esterase-Dipstick 100 /ul (Negative); Nitrite-Dipstick Negative (Negative); Occult Blood-Urine Negative /ul (Negative); Protein-Dipstick 30 mg/dl (Negative); Urine Bilirubin Dipstick Negative (Negative); Urine Clarity Clear (Clear); Urine Urobilinogen Normal (Normal); Urine pH 6.5 (5.0 - 8.0)
[2022-10-02 18:52] LABS: ALB/GLOB Ratio 0.9 RATIO (0.9-2.4); AST(SGOT) 24 U/L (15-37); Alanine Aminotransfer ALT/SGPT 21 U/L (13-56); Albumin, Serum 3.7 g/dL (3.2-5.0); Alkaline Phosphatase 79 U/L (45-117); Anion Gap 7 (5-15); BUN 27 mg/dL (7-18); BUN/Creat Ratio 21.4 RATIO (10-20); CPK Total, Creatine Kinase 63 U/L (26-192); Calcium,Total 9.4 mg/dL (8.5-10.1); Chloride 97 mmol/L (98-107); Creatinine, Serum 1.26 mg/dL (0.55-1.02); EST Glomerular Filtration Rate 43 mL/min (>60); Est Glom Filt Rate - Afr Amer 52 mL/min (>60); Globulin 4.2 g/dL (2.2-4.2); Glucose 89 mg/dL (74-106); Protein, Total 7.9 g/dL (6.4-8.2); Sodium Level 131 mmol/L (136-145)
[2022-10-02 19:00] LABS: Bacteria 1+ /hpf (None Seen); Squamous Epithelial Cells - UA 0-5 SEEN /hpf (5-10); White Blood Cells 0-5 SEEN /hpf (0-5)
[2022-10-04 19:42] LABS: Aldolase 2.8 U/L (3.3-10.3)
== END | disposition home or self-care (01) ==
LOC: MTLAB 15:09
PROVIDERS: PCP Internal Medicine; Referring Provider Dermatology; Visit Provider Dermatology
DX: L30.8 Other specified dermatitis (principal)
CPT/HCPCS: 80053; 81001; 82085; 82550; 85025; 86038; 86225

== ENCOUNTER → 2022-11-26 | Outpatient (CLI) | payer MEDICARE, SELFPAY ==
[2019-02-27 14:50] VITALS: BMI 22.1
--- NOTE | 2022-11-26 15:30 | RAD_ITS ---
EXAM: XR RIGHT KNEE COMPLETE, 4 OR MORE VIEWS CLINICAL INDICATION: INFLAMMATORY POLYARTHROPATHY TECHNIQUE: Four or more views of the right knee. This report was created using [employer] report generation technology. COMPARISON: None. FINDINGS: BONES/JOINTS: Unremarkable. No acute fracture. No subluxation. Normal alignment. Preservation of the joint space. No sclerotic or destructive changes observed. SOFT TISSUES: Unremarkable. No soft tissue swelling or gas. No radiopaque foreign body. RAD/Knee 4 or More Views IMPRESSION: Negative right knee x-rays. Electronically Signed: Oliver Barreto MD at 16:25 EDT ,
--- NOTE | 2022-11-26 15:30 | RAD_ITS ---
EXAM: XR LEFT KNEE COMPLETE, 4 OR MORE VIEWS CLINICAL INDICATION: INFLAMMATORY POLYARTHROPATHY TECHNIQUE: Four or more views of the left knee. This report was created using [employer] report generation technology. COMPARISON: None. FINDINGS: BONES/JOINTS: Unremarkable. No acute fracture. No subluxation. Normal alignment. Preservation of the joint space. No sclerotic or destructive changes observed. SOFT TISSUES: Unremarkable. No soft tissue swelling or gas. No radiopaque foreign body. RAD/Knee 4 or More Views IMPRESSION: Negative left knee x-rays. Electronically Signed: Ko Hsieh MD at 3:36 EDT ,
[2022-11-26 16:16] LABS: EXAGEN MAILED SPECIMEN
[2022-11-26 17:55] LABS: Absolute Lymphocyte Count 0.72 X10^3/uL (0.83-4.51); Absolute Neutrophil Count 3.8 X10^3/uL (2.0-7.7); Basophil# 0.01 X10^3/uL; Basophil% 0.2 % (0-1); Eosinophil# 0.12 X10^3/uL; Eosinophils% 2.3 % (0-5); Hematocrit 36.8 % (37-47); Hemoglobin 12.2 g/dL (12.0-15.0); Lymphocyte # 0.72 X10^3/ul (0.83-4.51); Lymphocyte % 14.1 % (19-41); Mean Corp Hgb Conc 33.2 g/dL (32-36); Mean Corpuscular Hgb 29.8 pg (27.0-32.0); Mean Corpuscular Volume 89.8 fL (81-99); Mean Platelet Vol. 9.4 fl (6.2-12.0); Monocyte# 0.47 X10^3/uL; Monocyte% 9.2 % (0-10); NRBC Flagged by Analyzer 0 % (0-5); Neutrophil # 3.78 X10^3/uL (2.7-7.7); Neutrophil % 73.8 % (47-70); Platelet Count 214 K/mm3 (150-450); RBC Distribution Width CV 14.7 % (11.6-14.6); RBC Distribution Width SD 48.1 fl (35.1-43.9); White Blood Count 5.1 K/mm3 (4.4-11.0)
[2022-11-26 18:06] LABS: Erythrocyte Sedimentation Rate 20 mm/hr (0-30)
[2022-11-26 18:32] LABS: ALB/GLOB Ratio 0.9 RATIO (0.9-2.4); AST(SGOT) 35 U/L (15-37); Alanine Aminotransfer ALT/SGPT 29 U/L (13-56); Albumin, Serum 3.5 g/dL (3.2-5.0); Alkaline Phosphatase 64 U/L (45-117); Anion Gap 6 (5-15); BUN 35 mg/dL (7-18); BUN/Creat Ratio 30.2 RATIO (10-20); CRP < 2.90 mg/L (0.0-3.0); Calcium,Total 9.5 mg/dL (8.5-10.1); Chloride 99 mmol/L (98-107); Creatinine, Serum 1.16 mg/dL (0.55-1.02); EST Glomerular Filtration Rate 47 mL/min (>60); Est Glom Filt Rate - Afr Amer 57 mL/min (>60); Glucose 147 mg/dL (74-106); Potassium 4.4 mmol/L (3.5-5.1); Protein, Total 7.5 g/dL (6.4-8.2); Sodium Level 132 mmol/L (136-145)
[2022-11-26 18:34] LABS: Glucose, Dipstick Normal (Normal); Ketone-Dipstick 5 mg/dl (Negative); Leukocyte Esterase-Dipstick 25 /ul (Negative); Nitrite-Dipstick Negative (Negative); Occult Blood-Urine 10 /ul (Negative); Protein-Dipstick 30 mg/dl (Negative); Urine Bilirubin Dipstick Negative (Negative); Urine Urobilinogen Normal (Normal)
[2022-11-26 18:52] LABS: Protein, Urine (Random) 57.3 mg/dL (<11.9); Protein:Creat Ratio 331 mg/g CRE (0-200)
[2022-11-26 19:47] LABS: Hepatitis B Surface Antibody Non-Reactive; Hepatitis B Surface Antigen Non-Reactive (Nonreactive); Hepatitis C Antibody Non-Reactive (Nonreactive)
[2022-11-26 19:57] LABS: Color, Urine Yellow (Yellow); Urine Clarity Clear (Clear)
== END | disposition home or self-care (01) ==
LOC: MTLAB 15:13
PROVIDERS: PCP Internal Medicine; Visit Provider Internal Medicine Rheumatology
DX: M06.4 Inflammatory polyarthropathy (principal); R76.8 Other specified abnormal immunological findings in serum
CPT/HCPCS: 36415; 73564; 80053; 81002; 82570; 84156; 85025; 85652; 86140; 86706; 86803; 87340

== ENCOUNTER → 2023-02-06 | Outpatient (CLI) | payer MEDICARE, SELFPAY ==
[2019-02-27 14:50] VITALS: BMI 22.1
[2023-02-06 17:39] LABS: Absolute Lymphocyte Count 0.62 X10^3/uL (0.83-4.51); Absolute Neutrophil Count 3.6 X10^3/uL (2.0-7.7); Basophil# 0.01 X10^3/uL; Basophil% 0.2 % (0-1); Eosinophil# 0.11 X10^3/uL; Eosinophils% 2.2 % (0-5); Hematocrit 33.9 % (37-47); Hemoglobin 11.2 g/dL (12.0-15.0); Lymphocyte # 0.62 X10^3/ul (0.83-4.51); Lymphocyte % 12.3 % (19-41); Mean Corpuscular Hgb 29.8 pg (27.0-32.0); Mean Corpuscular Volume 90.2 fL (81-99); Mean Platelet Vol. 9.3 fl (6.2-12.0); Monocyte# 0.76 X10^3/uL; NRBC Flagged by Analyzer 0 % (0-5); Neutrophil # 3.55 X10^3/uL (2.7-7.7); Neutrophil % 70.1 % (47-70); Platelet Count 219 K/mm3 (150-450); RBC Distribution Width CV 13.4 % (11.6-14.6); RBC Distribution Width SD 44.3 fl (35.1-43.9); Red Blood Count 3.76 M/mm3 (4.2-5.4); White Blood Count 5.1 K/mm3 (4.4-11.0)
[2023-02-06 18:11] LABS: ALB/GLOB Ratio 0.9 RATIO (0.9-2.4); AST(SGOT) 25 U/L (15-37); Alanine Aminotransfer ALT/SGPT 28 U/L (13-56); Albumin, Serum 3.5 g/dL (3.2-5.0); Alkaline Phosphatase 75 U/L (45-117); Anion Gap 5 (5-15); BUN 27 mg/dL (7-18); BUN/Creat Ratio 24.8 RATIO (10-20); Calcium,Total 9.1 mg/dL (8.5-10.1); Chloride 96 mmol/L (98-107); Creatinine, Serum 1.09 mg/dL (0.55-1.02); EST Glomerular Filtration Rate 51 mL/min (>60); Est Glom Filt Rate - Afr Amer 61 mL/min (>60); Globulin 3.9 g/dL (2.2-4.2); Glucose 98 mg/dL (74-106); Potassium 5.1 mmol/L (3.5-5.1); Protein, Total 7.4 g/dL (6.4-8.2); Sodium Level 128 mmol/L (136-145)
== END | disposition home or self-care (01) ==
PROVIDERS: PCP Internal Medicine; Referring Provider Internal Medicine Rheumatology; Visit Provider Internal Medicine Rheumatology
DX: M06.4 Inflammatory polyarthropathy (principal); R76.8 Other specified abnormal immunological findings in serum; Z79.899 Other long term (current) drug therapy
CPT/HCPCS: 36415; 80053; 85025

== ENCOUNTER 2023-02-20 06:09 | Emergency (ER) | payer MEDICARE, SELFPAY ==
[2019-02-27 14:50] VITALS: BMI 22.1
[2023-02-20 06:10] VITALS: BP 164/101; PULSE 91; RESP 26; TEMP 37.1; O2SAT 95; BMI 22.4
--- NOTE | 2023-02-20 06:34 | EDS_ITS ---
HPI History of Present Illness Chief Complaint: Back Informant: patient Onset/Context/Timing Onset: Today Context: Gradual Onset Timing: Continuous Quality: Sharp, Aching and - (Stabbing) Location: Lumbar, Buttock and Right Leg (Right hip) Worsened by: improves with - (Laying flat) Relieved by: - (Flexion right hip) Associated Symptoms Associated Symptoms: Tingling and Radiation to Right Leg (Right hip); Negative for Fever, Abdominal Pain, Dysuria, Urinary Retention, Urinary Incontinence, Constipation or Fecal Incontinence Narrative Narrative: Patient presents with back and right hip pain that became worse today. Patient states it came on gradually. Patient describes it as aching and stabbing. Patient states it is mainly over the right lower lumbar paraspinal muscles and into the right hip. Patient states it is worse whenever she lays flat and straightens her leg out. Patient states it is better when she flexes her right hip. Patient admits to some tingling in her right leg. Patient denies any numbness or weakness. Patient denies any pain into her abdomen. Patient denies any bowel or bladder changes. Patient denies any saddle anesthesia. Patient states that she saw Dr. Laws recently who prescribed her tramadol for her pain. [facility] Medical History Atherosclerosis of [place] coronary artery of [place] heart without angina pectoris Cataract Chest pain CHF (congestive heart failure) Contact with and (suspected) exposure to other viral communicable diseases COVID-19 (~12/2021) Diastolic dysfunction Dyspnea Essential (primary) hypertension GERD (gastroesophageal reflux disease) History of pneumonia Hx of congestive heart failure Non-rheumatic tricuspid valve insufficiency Nonrheumatic aortic valve insufficiency Nonrheumatic mitral valve insufficiency Nonrheumatic mitral valve prolapse Old myocardial infarction Presence of stent in coronary artery (~03/08/19) Pure hypercholesterolemia Rheumatoid arthritis Troponin I above reference range URI (upper respiratory infection) Home Medications levothyroxine 25 mcg tablet 25 mcg PO MOTUWETHFR thyroid 12/13/15 [History Last Taken 01/24/21] colesevelam 625 mg tablet (WelChol) 1,250 mg PO DAILY 12/15/19 [History Last Taken Unknown] cholecalciferol (vitamin D3) 25 mcg (1,000 unit) tablet 1,000 unit PO DAILY supplement 08/24/20 [History Last Taken Unknown] Lactobacillus acidophilus 1 billion cell capsule 1,000 mmu cells PO Q OTHER DAY 01/09/21 [History Last Taken Unknown] coenzyme Q10 100 mg capsule 100 mg PO Q OTHER DAY 01/09/21 [History Last Taken Unknown] cranberry 500 mg capsule 500 mg PO Q OTHER DAY 01/09/21 [History Last Taken Unknown] aspirin 81 mg tablet,delayed release (Adult Low Dose Aspirin) 81 mg PO BID 08/01/21 [History Last Taken Unknown] carvedilol 3.125 mg tablet See Rx Instructions .Route .COMPLEX #90 tabs 04/16/22 [Rx Last Taken Unknown] losartan 25 mg tablet 12.5 mg PO DAILY #45 tabs 06/07/22 [Rx Last Taken Unknown] calcium carbonate 500 mg calcium (1,250 mg) tablet 500 mg PO DAILY 06/15/22 [History Last Taken Unknown] vitamin B complex (B Complex-Vitamin B12 tablet) 1 tab PO Q OTHER DAY 06/15/22 [History Last Taken Unknown] albuterol sulfate 90 mcg/actuation aerosol inhaler 1 - 2 puff inhalation Q6H PRN shortness of breath or wheezing #8.5 grams 08/09/22 [Rx Last Taken Unknown] artifi.tears(hypromellose)(PF) 1.7 % eye drops with applicator 2 drp ophthalmic (eye) .AM 08/09/22 [History Last Taken Unknown] isosorbide mononitrate 30 mg tablet,extended release 24 hr 30 mg PO DAILY #30 tabs 12/17/22 [Rx Last Taken Unknown] hydroxychloroquine 200 mg tablet 200 mg PO DAILY 01/25/23 [History Last Taken Unknown] levothyroxine 50 mcg capsule 50 mcg PO SUSA 02/20/23 [History Last Taken Unknown] Allergy/AdvReac Type Severity Reaction Status Date / Time nitrofurantoin Allergy Intermediate thrush Verified 02/20/23 06:13 [From Macrobid] latex Allergy Mild Rash Verified 02/20/23 06:13 Penicillins [PCN] Allergy not sure Verified 02/20/23 06:13 Tuyrpyf-BHG-LhR Reductase Allergy All blood Verified 02/20/23 06:13 Inhibitor cells low [Mmwvpic-Swe-Epk Reductase Inhibitor] amoxicillin [From Augmentin] AdvReac Severe syncope Verified 06/21/23 06:13 clavulanic acid AdvReac Severe syncope Verified 02/20/23 06:13 [From Augmentin] carvedilol [From Coreg] AdvReac Intermediate Very Verified 02/20/23 06:13 fatigued on smallest dose clopidogrel [From Plavix] AdvReac Intermediate Severe Verified 02/20/23 06:13 diarrhea doxycycline AdvReac GI Verified 02/20/23 06:13 symptoms, emesis Sulfa (Sulfonamide AdvReac Nausea/Vom/ Verified 02/20/23 06:13 Antibiotics) Diarrhea Family History Father CAD (coronary artery disease) Myocardial infarction Mother CVA (cerebral vascular accident) Brother Aneurysm Brother Heart disease Myocardial infarction Sister Afib Parkinson's disease CVA (cerebral vascular accident) Surgical History History of appendectomy History of dilatation and curettage History of left heart catheterization (LHC) (~01/24/21) History of total adrenalectomy Presence of coronary angioplasty implant and graft (~03/08/19) S/P coronary artery stent placement (03/08/19) Social History Smoking Status: Never smoker Electronic Cigarette Use: not used second hand exposure: No alcohol intake: never substance use type: does not use caffeine: Yes Type: coffee Number of servings: 1 what type of physical activity do you participate in: other details: [employer] frequency: 3-4 times per week duration: 45-60 minutes/day seatbelt use: always do you feel safe at home: Yes ROS ROS ED Constitutional Constitutional ED: Denies chills or fever(s) Eyes Eyes: Denies blurry vision or change in vision ENT ENT ED: Denies rhinorrhea or sore throat Cardiovascular Cardiovascular: Denies chest pain or palpitations Respiratory/Chest Respiratory/Chest: Reports dyspnea; Denies cough Gastrointestinal Gastrointestinal: Denies nausea or vomiting Genitourinary Genitourinary ED: Reports urinary frequency; Denies dysuria or hematuria Musculoskeletal Musculoskeletal: Reports back pain; Denies neck pain Integumentary Denies abscess or rash Neurologic Neurologic: Denies headache(s) or weakness Allergic/Immunologic Allergic/Immunologic ED: Denies mouth swelling or urticaria EXAM Physical Exam Const Vital Signs: 02/20/23 06:10 02/20/23 08:20 Temperature 98.7 F Temperature Source Temporal Pulse Rate 91 76 Respiratory Rate 26 H 14 Blood Pressure 164/101 H 139/60 H Blood Pressure Mean 122 86 Pulse Ox 95 93 Oxygen Delivery Method Room Air Room Air Positive well nourished and well developed General Appearance ED: well developed and NAD HEENT Reports moist mucous membranes Neck supple and no JVD Resp normal respiratory effort and clear to auscultation bilaterally Cardio regular rate and regular rhythm GI normal to inspection, nondistended, normoactive bowel sounds and non-tender Palpation: soft Back/Spine Back/Spine Narrative: There is tenderness over the right lower lumbar paraspinal muscles. There is no midline tenderness. There is no bony crepitance or step-off. There is tenderness over the right sacroiliac area and posterior aspect of the right hip. There is tenderness over the sciatic notch. Range of motion was somewhat limited in extension of the right hip. There is good internal and external rotation. There is good flexion of the right hip. Pedal pulses are equal bilaterally. Sensation is intact light touch bilaterally in the lower extremities. Extremity normal to inspection General Extremety ED: Negative for edema or tenderness General Extremity: Negative for edema Neuro oriented x3, CN's II-XII intact bilaterally and no sensory deficits noted Sensorium / Orientation: alert Motor Exam: strength 5/5 throughout Psych mental status grossly normal Skin no rashes or lesions noted MDM MDM MDM Narrative Medical decision making narrative: Differential diagnosis includes lumbar radiculopathy, sciatica, lumbosacral strain, degenerative arthritis, and spondylolisthesis. X-rays of the lumbar spine will be obtained to assess for spondylolisthesis and degenerative arthritis. Radiography Diagnostic Testing: Clinical Impression(s) from Imaging Studies Lumbar Spine X-Ray 02/20/23 07:10 IMPRESSION: Advanced degenerative changes of the spine and hips. No acute abnormality identified. Moderate stool in the right colon and moderate gas in the rectosigmoid. Electronically Signed: Daniela Young MD at 7:46 EDT , X-rays of the lumbar spine were obtained. There are 2 views. On my independent interpretation, there is no acute fracture or spondylolisthesis. There are degenerative changes noted. There is moderate stool in the right colon. Radiologist also interpreted the x-rays and agrees. Treatment and Re-Evaluation Narrative: Patient was given injection of morphine. Patient was given a dose of oral Valium. Patient is feeling better on reevaluation. Patient will be ambulated here in the emergency department. She is able to ambulate with her normal cane, I feel the patient can be discharged home. If she is unable to ambulate she may need to be admitted to the hospital for residential placement. Patient and spouse understood and were agreeable with the plan. All questions were answered. Patient was able to ambulate but felt like she needed a walker. Patient was ordered a walker. Patient was instructed to follow-up with her primary care physician and pain management physician in 5 to 7 days. Patient understood and was agreeable with the plan. Discharge Plan Triage Chief Complaint: Back Other Complaint: General Illness ED Provider: Tejas Moore Dx/Rx/DC Orders Clinical Impression: Acute exacerbation of chronic low back pain, Essential (primary) hypertension Instructions: ED Back Pain (Acute or Chronic), ED Chronic Pain Prescriptions: No Action colesevelam [WelChol] 625 mg tablet 1,250 mg PO DAILY cranberry 500 mg capsule 500 mg PO Q OTHER DAY Rx Instructions: administer with meals coenzyme Q10 100 mg capsule 100 mg PO Q OTHER DAY Lactobacillus acidophilus 1 billion cell capsule 1,000 mmu cells PO Q OTHER DAY Rx Instructions: administer with a meal calcium carbonate 500 mg calcium (1,250 mg) tablet 500 mg PO DAILY vitamin B complex [B Complex-Vitamin B12] Tablet 1 tab PO Q OTHER DAY isosorbide mononitrate 30 mg tablet extended release 24 hr 30 mg PO DAILY Qty: 30 11RF artifi.tears(hypromellose)(PF) 1.7 % drops with applicator 2 drp ophthalmic (eye) .AM albuterol sulfate 90 mcg/actuation HFA aerosol inhaler 1 - 2 puff inhalation Q6H PRN (Reason: shortness of breath or wheezing) Qty: 8.5 1RF levothyroxine 25 MCG tablet 25 mcg PO MOTUWETHFR Label Comments: thyroid cholecalciferol (vitamin D3) 25 mcg (1,000 unit) tablet 1,000 unit PO DAILY Label Comments: supplement levothyroxine 50 mcg Capsule 50 mcg PO SUSA aspirin [Adult Low Dose Aspirin] 81 mg tablet,delayed release (DR/EC) 81 mg PO BID carvedilol 3.125 mg tablet See Rx Instructions .ROUTE .COMPLEX Qty: 90 3RF Dose Instruction: TAKE 1 TABLET DAILY Rx Instructions: TAKE 1 TABLET DAILY losartan 25 mg tablet 12.5 mg PO DAILY Qty: 45 4RF hydroxychloroquine 200 mg tablet 200 mg PO DAILY Primary Care Provider: Dori Boyd Referrals: Nathaniel Diana MD [Med Staff - Active Staff] - 3-5 Days Dori Boyd DO [Primary Care Provider] - 3-5 Days Disposition Disposition: Home, Self Care
[2023-02-20] MEDS: Morphine 4 MG/ML Syringe IM (06:57)
[2023-02-20] MEDS: diazePAM 5 MG Tablet PO (06:57)
--- NOTE | 2023-02-20 07:10 | RAD_ITS ---
EXAM: XR LUMBOSACRAL SPINE, 2 OR 3 VIEWS CLINICAL INDICATION: Injury/Pain TECHNIQUE: Frontal and lateral views of the lumbar spine and sacrum. COMPARISON: No relevant prior studies available. FINDINGS: VERTEBRAE: There is mild levoscoliosis of the lumbar spine centered at L2-3. Multilevel mild spondylosis. Straightening of the usual lordotic curvature. Preserved vertebral body height. No fracture. No significant facet arthropathy. DISC SPACES: At least moderate-marked disc space narrowing at L4-5 and L5-S1 with vacuum discs. Marked degenerative change of the hip joints, greater on the right. VASCULATURE: Peripheral calcification of the aorta, no aneurysm or dissection. GASTROINTESTINAL TRACT: Moderate stool in the right colon. Included bowel gas pattern is non-obstructive. OTHER FINDINGS: Inhomogeneous bone density. RAD/Lumbar Spine 2 or 3 Views IMPRESSION: Advanced degenerative changes of the spine and hips. No acute abnormality identified. Moderate stool in the right colon and moderate gas in the rectosigmoid. Electronically Signed: Daniela Young MD at 7:46 EDT ,
[2023-02-20 08:20] VITALS: BP 139/60; PULSE 76; RESP 14; O2SAT 93
== END 2023-02-20 08:45 | disposition home or self-care (01) ==
PROVIDERS: Emergency Provider Emergency Medicine; PCP Internal Medicine; Visit Provider Emergency Medicine
DX: M54.50 Low back pain, unspecified (principal); I11.0 Hypertensive heart disease with heart failure; I50.32 Chronic diastolic (congestive) heart failure; G89.29 Other chronic pain; M25.551 Pain in right hip; R35.0 Frequency of micturition; E78.00 Pure hypercholesterolemia, unspecified; I25.10 Atherosclerotic heart disease of native coronary artery without angina pectoris; Z79.82 Long term (current) use of aspirin; Z79.899 Other long term (current) drug therapy; Z79.890 Hormone replacement therapy; Z95.5 Presence of coronary angioplasty implant and graft
CPT/HCPCS: 72100; 96372; 99285

== ENCOUNTER 2023-02-25 15:22 | Inpatient (IN) | payer MEDICARE, SELFPAY ==
[2019-02-27 14:50] VITALS: BMI 22.1
[2023-02-25 15:23] VITALS: BP 158/89; PULSE 91; RESP 18; TEMP 37.1; O2SAT 96; BMI 21.3
--- NOTE | 2023-02-25 15:40 | EKG12_ITS ---
Test Reason : ABNORMAL LABS Blood Pressure : / mmHG Vent. Rate : 084 BPM Atrial Rate : 084 BPM P-R Int : 160 ms QRS Dur : 118 ms QT Int : 372 ms P-R-T Axes : 059 -46 043 degrees QTc Int : 439 ms Normal sinus rhythm Right bundle branch block Left anterior fascicular block Bifascicular block Abnormal ECG Confirmed by SUN MARCANO, LORRIE ([id number]), newspaper photo editor VIRAL SIM ([id number]) on 02/26/2023 9:03:41 AM Referred By: FIORELLA Confirmed By:LORRIE GARSIA MD
--- NOTE | 2023-02-25 15:43 | RAD_ITS ---
INDICATION: chest pain EXAMINATION/TECHNIQUE: X-RAY - XR Chest 1 View COMPARISON: 10/26/2020. FINDINGS: LINES/DEVICES: None. LUNGS: No consolidation, edema or effusion. No pneumothorax. MEDIASTINUM AND CARDIOVASCULAR STRUCTURES: Cardiac silhouette not enlarged. Central airways and mediastinal contour are unremarkable. BONES AND SOFT TISSUES: Unremarkable. RAD/Chest 1 View (Portable) IMPRESSION: No radiographic evidence of acute cardiopulmonary disease. Electronically Signed: Nemo Eldridge MD at 16:57 EDT Reading Location ID and State: [id number] / Tel , Service support ,
[2023-02-25 16:14] LABS: Absolute Lymphocyte Count 0.18 X10^3/uL (0.83-4.51); Absolute Neutrophil Count 3.8 X10^3/uL (2.0-7.7); Basophil# 0.01 X10^3/uL; Basophil% 0.2 % (0-1); Hematocrit 33.2 % (37-47); Hemoglobin 11.3 g/dL (12.0-15.0); Lymphocyte # 0.18 X10^3/ul (0.83-4.51); Lymphocyte % 4.3 % (19-41); Mean Corpuscular Hgb 29.6 pg (27.0-32.0); Mean Corpuscular Volume 86.9 fL (81-99); Monocyte# 0.17 X10^3/uL; Monocyte% 4.1 % (0-10); NRBC Flagged by Analyzer 0 % (0-5); Neutrophil # 3.77 X10^3/uL (2.7-7.7); Neutrophil % 91.2 % (47-70); POSITIVE DIFFERENTIAL YES; Platelet Count 228 K/mm3 (150-450); RBC Distribution Width CV 12.9 % (11.6-14.6); RBC Distribution Width SD 40.8 fl (35.1-43.9); Red Blood Count 3.82 M/mm3 (4.2-5.4); White Blood Count 4.1 K/mm3 (4.4-11.0)
[2023-02-25 16:16] LABS: Anion Gap 7 (5-15); BUN 25 mg/dL (7-18); BUN/Creat Ratio 22.3 RATIO (10-20); Calcium,Total 9.6 mg/dL (8.5-10.1); Chloride 93 mmol/L (98-107); Creatinine, Serum 1.12 mg/dL (0.55-1.02); EST Glomerular Filtration Rate 49 mL/min (>60); Est Glom Filt Rate - Afr Amer 59 mL/min (>60); Estimated Creatinine Clearance 27.21 ml/min; Glucose 134 mg/dL (74-106); Potassium 4.9 mmol/L (3.5-5.1); Sodium Level 125 mmol/L (136-145); Troponin-I HS 416 pg/mL (3.0-54.0)
[2023-02-25 16:17] LABS: Differential Indicated SCAN CRITERIA MET
[2023-02-25 16:34] LABS: Bacteria 0 SEEN /hpf (None Seen); Mucous, Urine 0 SEEN /hpf (<or=2+); Red Blood Cells-Urine 0 SEEN /hpf (0-5)
--- NOTE | 2023-02-25 16:35 | EDS_ITS ---
HPI History of Present Illness Chief Complaint: Abn Labs Narrative Narrative: 87-year-old female presenting with weakness. She states that she was sent by her primary care physician because of her sodium. The patient does state that she is a little short of breath at times. She states that she does feel weak and lightheaded. She will say she has chest pain but she states she has tightness in her neck from time to time which is worse with exertion. She states she has to rest. I tried to narrow down the timeline but the best she can give me is every now and again. She has not a fever or cough. She does have history of CAD, cardiac stents, CHF. She previously had Dr. Bradshaw [facility] Medical History Atherosclerosis of [place] coronary artery of [place] heart without angina pectoris Cataract Chest pain CHF (congestive heart failure) Chronic kidney disease (CKD) stage G3a/A1, moderately decreased glomerular filtration rate (GFR) between 45-59 mL/min/1.73 square meter and albuminuria creatinine ratio less than 30 mg/g Contact with and (suspected) exposure to other viral communicable diseases COVID-19 (~12/2021) Diastolic dysfunction Dyspnea Essential (primary) hypertension GERD (gastroesophageal reflux disease) History of pneumonia Hx of congestive heart failure Non-rheumatic tricuspid valve insufficiency Nonrheumatic aortic valve insufficiency Nonrheumatic mitral valve insufficiency Nonrheumatic mitral valve prolapse Old myocardial infarction Presence of stent in coronary artery (~03/08/19) Pure hypercholesterolemia Rheumatoid arthritis Troponin I above reference range URI (upper respiratory infection) Home Medications levothyroxine 25 mcg tablet 25 mcg PO MOTUWETHFR thyroid 12/13/15 [History Last Taken 02/23/23] colesevelam 625 mg tablet (WelChol) 1,250 mg PO DAILY 12/15/19 [History Last Taken 02/24/23] cholecalciferol (vitamin D3) 25 mcg (1,000 unit) tablet 1,000 unit PO DAILY supplement 08/24/20 [History Last Taken 02/25/23] Lactobacillus acidophilus 1 billion cell capsule 1,000 mmu cells PO Q OTHER DAY 01/09/21 [History Last Taken 02/25/23] coenzyme Q10 100 mg capsule 100 mg PO Q OTHER DAY 01/09/21 [History Last Taken 02/25/23] aspirin 81 mg tablet,delayed release (Adult Low Dose Aspirin) 81 mg PO BID 08/01/21 [History Last Taken 02/24/23] carvedilol 3.125 mg tablet See Rx Instructions .Route .COMPLEX #90 tabs 04/16/22 [Rx Last Taken 02/24/23] losartan 25 mg tablet 12.5 mg PO DAILY #45 tabs 06/07/22 [Rx Last Taken Unknown] calcium carbonate 500 mg calcium (1,250 mg) tablet 500 mg PO DAILY 06/15/22 [History Last Taken 02/25/23] vitamin B complex (B Complex-Vitamin B12 tablet) 1 tab PO Q OTHER DAY 06/15/22 [History Last Taken 02/24/23] albuterol sulfate 90 mcg/actuation aerosol inhaler 1 - 2 puff inhalation Q6H PRN shortness of breath or wheezing #8.5 grams 08/09/22 [Rx Last Taken Unknown] artifi.tears(hypromellose)(PF) 1.7 % eye drops with applicator 2 drp ophthalmic (eye) .AM 08/09/22 [History Last Taken 02/25/23] hydroxychloroquine 200 mg tablet 200 mg PO DAILY 01/25/23 [History Last Taken 02/25/23] levothyroxine 50 mcg capsule 50 mcg PO SUSA 02/20/23 [History Last Taken 02/25/23] duloxetine 20 mg capsule,delayed release 20 mg PO QHS MOOD 02/25/23 [History Last Taken 02/25/23] tramadol 50 mg tablet 25 - 50 mg PO TID PRN Pain 02/25/23 [History Last Taken 02/25/23] Allergy/AdvReac Type Severity Reaction Status Date / Time nitrofurantoin Allergy Intermediate thrush Verified 02/25/23 15:25 [From Macrobid] latex Allergy Mild Rash Verified 02/25/23 15:25 Penicillins [PCN] Allergy not sure Verified 02/25/23 15:25 Dfedpkj-NOR-SdN Reductase Allergy All blood Verified 02/25/23 15:25 Inhibitor cells low [Nwigfxg-Nra-Gya Reductase Inhibitor] amoxicillin [From Augmentin] AdvReac Severe syncope Verified 02/25/23 15:25 clavulanic acid AdvReac Severe syncope Verified 02/25/23 15:25 [From Augmentin] carvedilol [From Coreg] AdvReac Intermediate Very Verified 02/25/23 15:25 fatigued on smallest dose clopidogrel [From Plavix] AdvReac Intermediate Severe Verified 02/25/23 15:25 diarrhea doxycycline AdvReac GI Verified 02/25/23 15:25 symptoms, emesis Sulfa (Sulfonamide AdvReac Nausea/Vom/ Verified 02/25/23 15:25 Antibiotics) Diarrhea Family History Father CAD (coronary artery disease) Myocardial infarction Mother CVA (cerebral vascular accident) Brother Aneurysm Brother Heart disease Myocardial infarction Sister Afib Parkinson's disease CVA (cerebral vascular accident) Surgical History History of appendectomy History of dilatation and curettage History of left heart catheterization (LHC) (~01/24/21) History of total adrenalectomy Presence of coronary angioplasty implant and graft (~03/08/19) S/P coronary artery stent placement (03/08/19) Social History Smoking Status: Never smoker Electronic Cigarette Use: not used second hand exposure: No alcohol intake: never substance use type: does not use caffeine: Yes Type: coffee Number of servings: 1 what type of physical activity do you participate in: other details: [employer] frequency: 3-4 times per week duration: 45-60 minutes/day seatbelt use: always do you feel safe at home: Yes ROS ROS ED Constitutional Constitutional ED: Denies chills or fever(s) Eyes Eyes: Denies change in vision ENT ENT ED: Denies rhinorrhea or sore throat Cardiovascular Cardiovascular: Reports chest pain and other Details: Lightheadedness ; Denies palpitations Respiratory/Chest Respiratory/Chest: Reports cough, dyspnea and dyspnea on exertion Gastrointestinal Gastrointestinal: Denies abdominal pain Genitourinary Genitourinary ED: Denies dysuria Musculoskeletal Musculoskeletal: Denies arthralgias Integumentary Denies abscess or Abrasions Neurologic Neurologic: Denies headache(s) Psychiatric Psychiatric: Denies anxiety or depression EXAM Physical Exam Const Vital Signs: 02/25/23 15:23 02/25/23 15:35 02/25/23 15:40 Temperature 98.7 F Temperature Source Temporal Pulse Rate 91 Respiratory Rate 18 Respiratory Effort Normal Non-Labored Respiratory Pattern Normal Blood Pressure 158/89 H Blood Pressure Mean 112 Pulse Ox 96 Oxygen Delivery Method Room Air Room Air Positive well nourished General Appearance ED: NAD; Negative for pallor HEENT Reports moist mucous membranes Eyes PERRL and EOMs intact bilaterally Chest Wall inspection of chest normal Resp normal respiratory effort and clear to auscultation bilaterally Auscultation: Negative for rales, rhonchi or wheezes Cardio regular rate and regular rhythm Extremity normal to inspection Neuro oriented x3 and CN's II-XII intact bilaterally Sensorium / Orientation: alert Motor Exam: general weakness Skin General Skin Exam: Negative for jaundice or pallor MDM MDM MDM Narrative Medical decision making narrative: Patient presenting with vague symptoms of weakness, lightheadedness. She also states she gets neck tightness which comes with exertion and goes away with rest. Differential includes but is not limited to ACS, PE, pneumonia, muscle strain, costochondritis, CHF, hyponatremia, hypokalemia, dehydration. Patient is PERC negative so I have low suspicion for PE. CBC to assess white blood cell count, hemoglobin, platelets, differential. BMP to assess renal function, electrolytes, glucose, anion gap. High-sensitivity troponin and EKG to assess for ischemia. Chest x-ray to rule out pneumonia or CHF. Patient declines analgesia. It is difficult to get her to narrow down her timeline to more than every now and again with the neck tightness. CBC shows a leukopenia 4.1. Hemoglobin stable. Platelets normal. Renal function appears to be at baseline. Sodium low at 125. Glucose 134 without anion gap. BNP 380.9. EKG on my interpretation shows a normal sinus rhythm with right bundle branch block pattern. No ST elevation or depression. Chest x-ray my interpretation shows no acute cardiopulmonary process. The radiologist interprets this and agrees. Urinalysis negative for infection. I attempted to give the patient aspirin however she refused stating that it was not good for her rash. The risk and benefit were explained to her and she still refuses. She will be placed on a heparin drip however. Discussed with hospitalist for admission. Impression: 1. Hyponatremia 2. NSTEMI 3. Generalized weakness Lab Data Labs: Laboratory Results - last 24 hr 0602/25/23 02/25/23 15:35 15:35 15:35 WBC 4.1 L RBC 3.82 L Hgb 11.3 L Hct 33.2 L MCV 86.9 MCH 29.6 MCHC 34.0 RDW Std Deviation 40.8 RDW Coeff of [place] 12.9 Plt Count 228 MPV 9.0 Immature Gran % (Auto) 0.200 Neut % (Auto) 91.2 H Lymph % (Auto) 4.3 L [place] % (Auto) 4.1 Eos % (Auto) 0.0 Baso % (Auto) 0.2 Absolute Neuts (auto) 3.8 Absolute Lymphs (auto) 0.18 L Nucleated RBC % 0 Differential Comment SCANNED PT INR APTT Sodium 125 L Potassium 4.9 Chloride 93 L Carbon Dioxide 25.0 Anion Gap 7 BUN 25 H Creatinine 1.12 H Estim Creat Clear Calc 27.21 Est GFR (MDRD) Af Amer 59 L Est GFR (MDRD) Non-Af 49 L BUN/Creatinine Ratio 22.3 H Glucose 134 H Uric Acid Calcium 9.6 Troponin I High Sens 416 H* B-Natriuretic Peptide 380.9 H Urine Color Urine Clarity Urine pH Ur Specific [place] Urine Protein Urine Glucose (UA) Urine Ketones Urine Occult Blood Urine Nitrite Urine Bilirubin Urine Urobilinogen Ur Leukocyte Esterase Urine RBC Urine WBC Ur Squamous Epith Cells Urine Bacteria Urine Mucus Urine Osmolality Ur Random Sodium 02/25/23 02/25/23 02/25/23 15:35 15:37 16:20 WBC RBC Hgb Hct MCV MCH MCHC RDW Std Deviation RDW Coeff of [place] Plt Count MPV Immature Gran % (Auto) Neut % (Auto) Lymph % (Auto) [place] % (Auto) Eos % (Auto) Baso % (Auto) Absolute Neuts (auto) Absolute Lymphs (auto) Nucleated RBC % Differential Comment PT 13.5 INR 1.0 APTT 26.7 Sodium Potassium Chloride Carbon Dioxide Anion Gap BUN Creatinine Estim Creat Clear Calc Est GFR (MDRD) Af Amer Est GFR (MDRD) Non-Af BUN/Creatinine Ratio Glucose Uric Acid 4.0 Calcium Troponin I High Sens B-Natriuretic Peptide Urine Color Straw Urine Clarity Clear Urine pH 7.0 Ur Specific [place] 1.005 Urine Protein 30 H Urine Glucose (UA) Normal Urine Ketones Negative Urine Occult Blood 10 H Urine Nitrite Negative Urine Bilirubin Negative Urine Urobilinogen Normal Ur Leukocyte Esterase Negative Urine RBC 0 SEEN Urine WBC 0-5 SEEN Ur Squamous Epith Cells 0-5 SEEN Urine Bacteria 0 SEEN Urine Mucus 0 SEEN Urine Osmolality Ur Random Sodium 02/25/23 16:20 WBC RBC Hgb Hct MCV MCH MCHC RDW Std Deviation RDW Coeff of [place] Plt Count MPV Immature Gran % (Auto) Neut % (Auto) Lymph % (Auto) [place] % (Auto) Eos % (Auto) Baso % (Auto) Absolute Neuts (auto) Absolute Lymphs (auto) Nucleated RBC % Differential Comment PT INR APTT Sodium Potassium Chloride Carbon Dioxide Anion Gap BUN Creatinine Estim Creat Clear Calc Est GFR (MDRD) Af Amer Est GFR (MDRD) Non-Af BUN/Creatinine Ratio Glucose Uric Acid Calcium Troponin I High Sens B-Natriuretic Peptide Urine Color Urine Clarity Urine pH Ur Specific [place] Urine Protein Urine Glucose (UA) Urine Ketones Urine Occult Blood Urine Nitrite Urine Bilirubin Urine Urobilinogen Ur Leukocyte Esterase Urine RBC Urine WBC Ur Squamous Epith Cells Urine Bacteria Urine Mucus Urine Osmolality 219 Ur Random Sodium 42 Radiography Diagnostic Testing: Clinical Impression(s) from Imaging Studies Chest X-Ray 02/25/23 15:43 IMPRESSION: No radiographic evidence of acute cardiopulmonary disease. Electronically Signed: Nemo Eldridge MD at 16:57 EDT Reading Location ID and State: [id number] / Tel , Service support , Discharge Plan Disposition Disposition: Acute Care Hospital [facility] Discharge Date/Time: 02/25/23 17:29
[2023-02-25 16:37] LABS: Color, Urine Straw (Yellow); Glucose, Dipstick Normal (Normal); Ketone-Dipstick Negative (Negative); Leukocyte Esterase-Dipstick Negative /ul (Negative); Nitrite-Dipstick Negative (Negative); Occult Blood-Urine 10 /ul (Negative); Protein-Dipstick 30 mg/dl (Negative); Specific Gravity, Urine 1.005 (1.002-1.030); Urine Bilirubin Dipstick Negative (Negative); Urine Clarity Clear (Clear); Urine Urobilinogen Normal (Normal)
[2023-02-25 16:38] LABS: Differential Comment SCANNED
[2023-02-25 16:42] LABS: Squamous Epithelial Cells - UA 0-5 SEEN /hpf (5-10); White Blood Cells 0-5 SEEN /hpf (0-5)
--- NOTE | 2023-02-25 16:50 | NURSING ---
DR GUERRERO FOR DR BELTRAN
--- NOTE | 2023-02-25 17:00 | PCM.HP.STD ---
HPI - General General Date of Admission: 02/25/23 Date of Service: 02/25/23 Chief Complaint: Fatigue/shortness of breath/chest discomfort HPI Narrative HUBERT DAVIS, is a 87 F who presented to the emergency department at [facility] on 02/25/2023 at the instruction of her primary care physician due to concerning labs that she had yesterday. She was found to be hyponatremic with a sodium of 125. Upon my questioning the patient reports that she has had worsening fatigue and generalized weakness that is been slowly progressively worsening over the last 2 months. She also reports decreased exercise tolerance and shortness of breath with exertion. Her has been helping more with household activities as she has been having difficulty going up and down stairs but was contributing to her hip. Her limitation was fatigue and shortness of breath. She has been having some upper chest and neck tightness that has been worsening over the last several weeks as well. She had a previous catheterization in 2019 at which time a stent was placed in her proximal and mid LAD and proximal first diagonal. She states her symptoms that she is experiencing now are similar to symptoms she was having at that time. Patient is also complaining of worsening swelling in her lower extremities. Vital signs on presentation show a temperature of 98.7, blood pressure 158/89, respiratory to 18, oxygen saturations 96% on room air. CBC shows mild leukopenia with a white count of 4.1 which is new, anemia with a hemoglobin of 11.3, and a platelet count which is normal at 220,000. Coags are normal. Chemistry panel shows hyponatremia the sodium of 125, serum creatinine is at her baseline elevation at 1.12 and her glucose is 134. Patient did admit that she was recently placed on a Medrol Dosepak so this may be why her glucose is elevated compared to previous. Her BNP was 380.9 and her troponin was 416 UA is unremarkable and specific gravity is 1.005. Chest x-ray was unremarkable for any acute findings. EKG shows right bundle branch block which is chronic and no ST-T wave changes concerning for ischemia. Intervals are normal. [facility] Medical History Atherosclerosis of [place] coronary artery of [place] heart without angina pectoris Cataract Chest pain CHF (congestive heart failure) Chronic kidney disease (CKD) stage G3a/A1, moderately decreased glomerular filtration rate (GFR) between 45-59 mL/min/1.73 square meter and albuminuria creatinine ratio less than 30 mg/g Contact with and (suspected) exposure to other viral communicable diseases COVID-19 (~12/2021) Diastolic dysfunction Dyspnea Essential (primary) hypertension GERD (gastroesophageal reflux disease) History of pneumonia Hx of congestive heart failure Non-rheumatic tricuspid valve insufficiency Nonrheumatic aortic valve insufficiency Nonrheumatic mitral valve insufficiency Nonrheumatic mitral valve prolapse Old myocardial infarction Presence of stent in coronary artery (~03/08/19) Pure hypercholesterolemia Rheumatoid arthritis Troponin I above reference range URI (upper respiratory infection) Home Medications levothyroxine 25 mcg tablet 25 mcg PO MOTUWETHFR thyroid 12/13/15 [History Last Taken 02/23/23] colesevelam 625 mg tablet (WelChol) 1,250 mg PO DAILY 12/15/19 [History Last Taken 02/24/23] cholecalciferol (vitamin D3) 25 mcg (1,000 unit) tablet 1,000 unit PO DAILY supplement 08/24/20 [History Last Taken 02/25/23] Lactobacillus acidophilus 1 billion cell capsule 1,000 mmu cells PO Q OTHER DAY 01/09/21 [History Last Taken 02/25/23] coenzyme Q10 100 mg capsule 100 mg PO Q OTHER DAY 01/09/21 [History Last Taken 02/25/23] aspirin 81 mg tablet,delayed release (Adult Low Dose Aspirin) 81 mg PO BID 08/01/21 [History Last Taken 02/24/23] carvedilol 3.125 mg tablet See Rx Instructions .Route .COMPLEX #90 tabs 04/16/22 [Rx Last Taken 02/24/23] losartan 25 mg tablet 12.5 mg PO DAILY #45 tabs 06/07/22 [Rx Last Taken Unknown] calcium carbonate 500 mg calcium (1,250 mg) tablet 500 mg PO DAILY 06/15/22 [History Last Taken 02/25/23] vitamin B complex (B Complex-Vitamin B12 tablet) 1 tab PO Q OTHER DAY 06/15/22 [History Last Taken 02/24/23] albuterol sulfate 90 mcg/actuation aerosol inhaler 1 - 2 puff inhalation Q6H PRN shortness of breath or wheezing #8.5 grams 08/09/22 [Rx Last Taken Unknown] artifi.tears(hypromellose)(PF) 1.7 % eye drops with applicator 2 drp ophthalmic (eye) .AM 08/09/22 [History Last Taken 02/25/23] hydroxychloroquine 200 mg tablet 200 mg PO DAILY 01/25/23 [History Last Taken 02/25/23] levothyroxine 50 mcg capsule 50 mcg PO SUSA 02/20/23 [History Last Taken 02/25/23] duloxetine 20 mg capsule,delayed release 20 mg PO QHS MOOD 02/25/23 [History Last Taken 02/25/23] tramadol 50 mg tablet 25 - 50 mg PO TID PRN Pain 02/25/23 [History Last Taken 02/25/23] Allergy/AdvReac Type Severity Reaction Status Date / Time nitrofurantoin Allergy Intermediate thrush Verified 02/25/23 15:25 [From Macrobid] latex Allergy Mild Rash Verified 02/25/23 15:25 Penicillins [PCN] Allergy not sure Verified 02/25/23 15:25 Wjhsdpm-URI-RyH Reductase Allergy All blood Verified 02/25/23 15:25 Inhibitor cells low [Ccmvtha-Lkg-Nxy Reductase Inhibitor] amoxicillin [From Augmentin] AdvReac Severe syncope Verified 02/25/23 15:25 clavulanic acid AdvReac Severe syncope Verified 02/25/23 15:25 [From Augmentin] carvedilol [From Coreg] AdvReac Intermediate Very Verified 02/25/23 15:25 fatigued on smallest dose clopidogrel [From Plavix] AdvReac Intermediate Severe Verified 02/25/23 15:25 diarrhea doxycycline AdvReac GI Verified 02/25/23 15:25 symptoms, emesis Sulfa (Sulfonamide AdvReac Nausea/Vom/ Verified 02/25/23 15:25 Antibiotics) Diarrhea Family History Father CAD (coronary artery disease) Myocardial infarction Mother CVA (cerebral vascular accident) Brother Aneurysm Brother Heart disease Myocardial infarction Sister Afib Parkinson's disease CVA (cerebral vascular accident) Surgical History History of appendectomy History of dilatation and curettage History of left heart catheterization (LHC) (~01/24/21) History of total adrenalectomy Presence of coronary angioplasty implant and graft (~03/08/19) S/P coronary artery stent placement (03/08/19) Social History Smoking Status: Never smoker Electronic Cigarette Use: not used second hand exposure: No alcohol intake: never substance use type: does not use caffeine: Yes Type: coffee Number of servings: 1 what type of physical activity do you participate in: other details: [employer] frequency: 3-4 times per week duration: 45-60 minutes/day seatbelt use: always do you feel safe at home: Yes ROS Constitutional Constitutional: Reports fatigue and weakness; Denies anorexia, change in weight, chills, fever(s), malaise, night sweats or other Eyes Eyes: Denies blurry vision, change in eye color, change in vision, discharge from eye(s), double vision, erythema, eye pain, loss of vision or other ENT HEENT: Denies abnormal hearing, dysphagia, ear pain, epistaxis, headache(s), hearing loss, nasal congestion, nasal discharge, post nasal drip, sinus pressure, sore throat or other Cardiovascular Cardiovascular: Reports chest pain, dyspnea on exertion and edema; Denies claudication, lightheadedness, orthopnea, palpitations, paroxysmal nocturnal dyspnea, rapid heart rate, syncope or other Respiratory/Chest Respiratory/Chest: Denies cough, dyspnea, excessive phlegm production, hemoptysis, productive cough, shortness of breath at rest, shortness of breath with exertion, wheezing or other Gastrointestinal Gastrointestinal: Denies abdominal pain, coffee ground emesis, constipation, diarrhea, dyspepsia, hematemesis, hematochezia, loose stools, melena, nausea, vomiting or other Genitourinary Genitourinary: Denies burning urination, difficulty urinating, dysuria, hematuria, nocturia, urinary frequency, urinary hesitancy, urinary incontinence, urinary urgency or other Musculoskeletal Musculoskeletal: Reports arthralgias, joint pain and joint stiffness; Denies back pain, joint swelling, myalgias, neck pain or other Neurologic Neurologic: Denies abnormal gait, abnormal speech, confusion, disequilibrium, dizziness, focal weakness, headache(s), numbness, paresthesias, seizure-like activity, seizures, syncope, tingling, tremor(s) or other Psychiatric Psychiatric: Reports depression; Denies anxiety, homicidal ideation, suicidal ideation or other Endocrine Endocrinology: Denies change in body appearance, cold intolerance, excessive sweating, heat intolerance, polydipsia, polyuria or other Hematologic/Lymphatic Hematologic/Lymphatic: Reports easy bruising; Denies anemia, easy bleeding, lymphadenopathy or other Allergic/Immunologic Allergic/Immunologic: Denies rhinitis, hives, eczemia, asthma or other Vital Signs Vital Signs Vital Signs: 02/25/23 15:23 02/25/23 15:35 02/25/23 15:40 Temperature 98.7 F Temperature Source Temporal Pulse Rate 91 Respiratory Rate 18 Respiratory Effort Normal Non-Labored Respiratory Pattern Normal Blood Pressure 158/89 H Blood Pressure Mean 112 Pulse Ox 96 Oxygen Delivery Method Room Air Room Air Weight Weight: 51.256 kg Body Mass Index (BMI) 21.3 Physical Exam Const alert, oriented x3, no apparent distress, average body habitus and well nourished Constitutional Narrative: Elderly white female sitting up in bed, appears comfortable and nontoxic, at bedside, normal weight General Appearance: cooperative HEENT normocephalic, head/scalp atraumatic, hearing grossly normal bilaterally and moist oral mucous membranes HEENT Narrative: Mallampati 2, no thrush Eyes PERRL, EOMs intact bilaterally and conjunctivae normal Eyes Narrative: No scleral icterus Neck no lymphadenopathy, supple, no JVD and no carotid bruits Resp normal respiratory effort, no retractions, no use of accessory muscles and clear to auscultation bilaterally Auscultation: Negative for rales, rhonchi or wheezes Cardio regular rate, regular rhythm, S1 normal heart sound, S2 normal heart sound, no rub, no gallops and no clicks; Negative for no murmurs Cardio Narrative: 2 out of 6 systolic murmur loudest at right upper sternal border GI normal to inspection, nondistended, normoactive bowel sounds, soft to palpation and non-tender Extremity Extremity Narrative: Trace to 1+ bilateral lower extremity edema, no cyanosis or clubbing Skin No no rashes or lesions noted, No no wounds, skin turgor normal, no jaundice, no petechiae and no mottling Skin Narrative: Significant erythematous rash on bilateral arms that is scattered and nonblanchable, few small skin tears Neuro oriented x3, CN's II-XII intact bilaterally, moves all extremities and no focal motor deficits Speech: speech normal Psych affect normal Mood & Affect: anxious Results Lab / Micro Data Attestation: I reviewed the patient's lab results. Result Diagrams: 02/25/23 15:35 02/25/23 15:35 Labs: Laboratory Results - last 24 hr 02/25/23 15:35: WBC 4.1 L, RBC 3.82 L, Hgb 11.3 L, Hct 33.2 L, MCV 86.9, MCH 29.6, MCHC 34.0, RDW Std Deviation 40.8, RDW Coeff of Young 12.9, Plt Count 228, MPV 9.0, Immature Gran % (Auto) 0.200, Neut % (Auto) 91.2 H, Lymph % (Auto) 4.3 L, Taylor % (Auto) 4.1, Eos % (Auto) 0.0, Baso % (Auto) 0.2, Absolute Neuts (auto) 3.8, Absolute Lymphs (auto) 0.18 L, Nucleated RBC % 0, Differential Comment SCANNED 02/25/23 15:35: Sodium 125 L, Potassium 4.9, Chloride 93 L, Carbon Dioxide 25.0, Anion Gap 7, BUN 25 H, Creatinine 1.12 H, Estim Creat Clear Calc 27.21, Est GFR (MDRD) Af Amer 59 L, Est GFR (MDRD) Non-Af 49 L, BUN/Creatinine Ratio 22.3 H, Glucose 134 H, Calcium 9.6, Troponin I High Sens 416 H* 02/25/23 16:20: Urine Color Straw, Urine Clarity Clear, Urine pH 7.0, Ur Specific [place] 1.005, Urine Protein 30 H, Urine Glucose (UA) Normal, Urine Ketones Negative, Urine Occult Blood 10 H, Urine Nitrite Negative, Urine Bilirubin Negative, Urine Urobilinogen Normal, Ur Leukocyte Esterase Negative, Urine RBC 0 SEEN, Urine WBC 0-5 SEEN, Ur Squamous Epith Cells 0-5 SEEN, Urine Bacteria 0 SEEN, Urine Mucus 0 SEEN Radiology Impression Chest X-Ray 02/25/23 15:43 IMPRESSION: No radiographic evidence of acute cardiopulmonary disease. Electronically Signed: Nemo Eldridge MD at 16:57 EDT Reading Location ID and State: [id number] / Tel , Service support , Assessment & Plan Assessment/Plan (1) NSTEMI, initial episode of care: (2) Hyponatremia: (3) Hyperglycemia: (4) Chronic kidney disease (CKD) stage G3a/A1, moderately decreased glomerular filtration rate (GFR) between 45-59 mL/min/1.73 square meter and albuminuria creatinine ratio less than 30 mg/g: PLAN: Plan NSTEMI -Highly suspect coronary disease -Symptoms are very similar to previous NSTEMI in 2019 at which time she received 3 stents -Patient initially refused full dose aspirin emergency department but I strongly encouraged and she stated she would take this -Heparin drip initiated to stop at 5 AM -Baby aspirin daily -Continue home beta-orion -Continue home ARB -Check lipids -Patient is intolerant of statins--> takes colesevelam we will continue this -Check hemoglobin A1c -Cardiology consult--> discussed with Dr. Akhtar and plan is to take patient to [facility] tomorrow morning -N.p.o. after midnight and heparin drip off at 5 AM Hyponatremia -Suspect some mild volume overload with BNP elevation and worsening swelling in bilateral lower extremities per patient report -IV Lasix x1 dose given -Urine specific gravity is low at 1.005 -Check serum and urine osmolality, urine sodium and uric acid -Repeat BMP in a.m. Hyperglycemia -Patient was just started on a Medrol Dosepak so it is likely that it is related to this -Check hemoglobin A1c CKD stage IIIa -Serum creatinine on presentation was 1.12 which is consistent with her previous baseline -Continue to monitor Lupus/chronic pain -Continue hydroxychloroquine -Continue as needed Ultram -Continue Medrol dose pack taper -Recommend continue outpatient follow-up with Dr. Laws for pain management Dr. Butt CAD/HPL/HTN -IVUS guided PCI/OZIEL to prox LAD 02/27/19; PTCA/OZIEL to prox Diag #1 and PCI/OZIEL to Mid LAD at bifurcation of diag to ensure no struts from diag stent protruded into LAD 03/08/19 -Continue colesevelam -Patient intolerant to statins -Continue beta-orion and if and continue ARB Hypothyroidism -Check TSH -Continue home levothyroxine Valvular heart disease -Patient with nonrheumatic tricuspid, aortic, and mitral valve insufficiency with history of mitral valve prolapse -Recent echo was performed 01/12/2022 and showed an EF of 60% and stable valvular disease Depression/anxiety -Continue duloxetine DVT prophylaxis -Patient is on heparin drip CODE STATUS -Full code as per discussion prior to admission Charges/Coding Visit Charges Inpatient E&M: 25040 Init Hosp L3
[2023-02-25 17:01] LABS: BNP,B-Type NATRIURETIC PEPTIDE 380.9 pg/mL (0-100)
--- NOTE | 2023-02-25 17:04 | NURSING ---
DEBRA GUERRERO NSTEMI, HYPONATREMIA
[2023-02-25 17:06] LABS: Prothrombin Time (Protime)PT. 13.5 SECONDS (11.7-14.9)
[2023-02-25 17:07] LABS: Partial Thromboplast Time 26.7 Seconds (24.1-36.2)
[2023-02-25 17:10] VITALS: BP 123/103; PULSE 82; RESP 18; TEMP 36.7; O2SAT 95
--- NOTE | 2023-02-25 17:14 | ED.RN ---
PT REFUSES DOSE OF ASPIRIN BECAUSE IT INTERFERES WITH MY LUPUS. THIS RN EDUCATED PATIENT ON NEED FOR ASPIRIN AND PT STILL HESITANT AND REFUSES. DR. BELTRAN MADE AWARE
[2023-02-25] MEDS: HEPARIN/D5w 25,000 UNITS 25,000 UNITS/250 ML IV.SOLN. 7 UNITS CONT INF (17:24)
[2023-02-25] MEDS: Aspirin 81 MG TAB.CHEW 324 MG PO (17:25)
--- NOTE | 2023-02-25 17:25 | PCM.CONS.C ---
Assessment & Plan Assessment/Plan (1) NSTEMI, initial episode of care: PLAN: She presents with a non-ST elevation myocardial infarction. My recommendation at this time will be to pursue a left heart catheterization and depending on the findings further recommendations will be made. Risk benefits alternatives have been explained to her and her they understand and agree to proceed. In the meantime patient to be continued on aspirin Beta-orion Intravenous heparin (2) Presence of stent in coronary artery: PLAN: Patient has a known history of coronary artery stenting in the LAD and diagonal vessels this will be reevaluated with a left heart catheterization. (3) Essential (primary) hypertension: PLAN: Patient is noted to be hypertensive. We will recommend increasing the beta-orion and all the JORGE LUIS inhibitor. (4) Pure hypercholesterolemia: PLAN: We will continue with high intensity statin. Thank you for allowing me to participate in the care of your patient. Please don't hesitate to call if any issues arise. HPI Consult Data Date of Consult: 02/25/23 HPI Narrative HPI Narrative: HUBERT DAVIS, is a 87 F who presents with chest discomfort which she says has been going on for a few weeks. She described this as a heaviness radiating to her neck. She does have a history of coronary artery disease status post stenting to her LAD on 02/27/2019 with a drug-eluting stent and PTCA/drug-eluting stent to proximal diagonal 1 and PTCA to mid LAD at bifurcation of diagonal on 03/08/2019, MVP, mitral regurgitation, aortic valve regurgitation, hyperlipidemia, hypertension, and palpitations. She presented to the emergency room today and was noted to have an EKG which was not significantly remarkable but she did have cardiac enzymes which were noted to be abnormal together with hyponatremia. She has had some mild chest discomfort at rest. Her last cardiac catheterization was in December 2020 and at that time it demonstrated patency of the stents and the above named vessels and preserved left ventricular systolic function. [facility] Medical History (Updated 02/25/23 @ 17:[address] Colleen Ruiz DO) Atherosclerosis of [place] coronary artery of [place] heart without angina pectoris Cataract Chest pain CHF (congestive heart failure) Chronic kidney disease (CKD) stage G3a/A1, moderately decreased glomerular filtration rate (GFR) between 45-59 mL/min/1.73 square meter and albuminuria creatinine ratio less than 30 mg/g Contact with and (suspected) exposure to other viral communicable diseases COVID-19 (~12/2021) Diastolic dysfunction Dyspnea Essential (primary) hypertension GERD (gastroesophageal reflux disease) History of pneumonia Hx of congestive heart failure Non-rheumatic tricuspid valve insufficiency Nonrheumatic aortic valve insufficiency Nonrheumatic mitral valve insufficiency Nonrheumatic mitral valve prolapse Old myocardial infarction Presence of stent in coronary artery (~03/08/19) Pure hypercholesterolemia Rheumatoid arthritis Troponin I above reference range URI (upper respiratory infection) Home Medications levothyroxine 25 mcg tablet 25 mcg PO MOTUWETHFR thyroid 12/13/15 [History Last Taken 02/23/23] colesevelam 625 mg tablet (WelChol) 1,250 mg PO DAILY 12/15/19 [History Last Taken 02/24/23] cholecalciferol (vitamin D3) 25 mcg (1,000 unit) tablet 1,000 unit PO DAILY supplement 08/24/20 [History Last Taken 02/25/23] Lactobacillus acidophilus 1 billion cell capsule 1,000 mmu cells PO Q OTHER DAY 01/09/21 [History Last Taken 02/25/23] coenzyme Q10 100 mg capsule 100 mg PO Q OTHER DAY 01/09/21 [History Last Taken 02/25/23] aspirin 81 mg tablet,delayed release (Adult Low Dose Aspirin) 81 mg PO BID 08/01/21 [History Last Taken 02/24/23] carvedilol 3.125 mg tablet See Rx Instructions .Route .COMPLEX #90 tabs 04/16/22 [Rx Last Taken 02/24/23] losartan 25 mg tablet 12.5 mg PO DAILY #45 tabs 06/07/22 [Rx Last Taken Unknown] calcium carbonate 500 mg calcium (1,250 mg) tablet 500 mg PO DAILY 06/15/22 [History Last Taken 02/25/23] vitamin B complex (B Complex-Vitamin B12 tablet) 1 tab PO Q OTHER DAY 06/15/22 [History Last Taken 02/24/23] albuterol sulfate 90 mcg/actuation aerosol inhaler 1 - 2 puff inhalation Q6H PRN shortness of breath or wheezing #8.5 grams 08/09/22 [Rx Last Taken Unknown] artifi.tears(hypromellose)(PF) 1.7 % eye drops with applicator 2 drp ophthalmic (eye) .AM 08/09/22 [History Last Taken 02/25/23] hydroxychloroquine 200 mg tablet 200 mg PO DAILY 01/25/23 [History Last Taken 02/25/23] levothyroxine 50 mcg capsule 50 mcg PO SUSA 02/20/23 [History Last Taken 02/25/23] duloxetine 20 mg capsule,delayed release 20 mg PO QHS MOOD 02/25/23 [History Last Taken 02/25/23] tramadol 50 mg tablet 25 - 50 mg PO TID PRN Pain 02/25/23 [History Last Taken 02/25/23] Allergy/AdvReac Type Severity Reaction Status Date / Time nitrofurantoin Allergy Intermediate thrush Verified 02/25/23 15:25 [From Macrobid] latex Allergy Mild Rash Verified 02/25/23 15:25 Penicillins [PCN] Allergy not sure Verified 02/25/23 15:25 Gebiulm-ELP-PrP Reductase Allergy All blood Verified 02/25/23 15:25 Inhibitor cells low [Gmsqgls-Rtt-Wop Reductase Inhibitor] amoxicillin [From Augmentin] AdvReac Severe syncope Verified 02/25/23 15:25 clavulanic acid AdvReac Severe syncope Verified 02/25/23 15:25 [From Augmentin] carvedilol [From Coreg] AdvReac Intermediate Very Verified 02/25/23 15:25 fatigued on smallest dose clopidogrel [From Plavix] AdvReac Intermediate Severe Verified 02/25/23 15:25 diarrhea doxycycline AdvReac GI Verified 02/25/23 15:25 symptoms, emesis Sulfa (Sulfonamide AdvReac Nausea/Vom/ Verified 02/25/23 15:25 Antibiotics) Diarrhea Family History Father CAD (coronary artery disease) Myocardial infarction Mother CVA (cerebral vascular accident) Brother Aneurysm Brother Heart disease Myocardial infarction Sister Afib Parkinson's disease CVA (cerebral vascular accident) Surgical History History of appendectomy History of dilatation and curettage History of left heart catheterization (LHC) (~01/24/21) History of total adrenalectomy Presence of coronary angioplasty implant and graft (~03/08/19) S/P coronary artery stent placement (03/08/19) Social History Smoking Status: Never smoker Electronic Cigarette Use: not used second hand exposure: No alcohol intake: never substance use type: does not use caffeine: Yes Type: coffee Number of servings: 1 what type of physical activity do you participate in: other details: [employer] frequency: 3-4 times per week duration: 45-60 minutes/day seatbelt use: always do you feel safe at home: Yes Physical Exam Const alert, oriented x3 and no apparent distress General Appearance: cooperative HEENT hearing grossly normal bilaterally Head and Scalp: atraumatic Eyes EOMs intact bilaterally Neck General: normal visual inspection Chest inspection of chest normal and palpation of chest normal Resp normal respiratory effort Auscultation: clear to auscultation bilaterally Cardio regular rate, regular rhythm, S1 normal heart sound and S2 normal heart sound Jugular Venous Distention: JVD GI normal to inspection, nondistended, normoactive bowel sounds Extremity normal capillary refill and no pedal edema Peripheral Pulses: Yes pulses 2+ throughout and femoral pulses present Skin no rashes or lesions noted Neuro oriented x3 and CN's II-XII intact bilaterally Psych Appearance: grossly normal and appropriate Risk Stratification Risk Stratification Applicable: Yes Age >/= 65: Yes >/= 3 CAD Risk Factors (HTN, HLD, DM, family hx of CAD, or current smoker): No Aspirin Use in the Past 7 Days: Yes Severe Angina (>/= episodes in 24 hours): Yes EKG ST Changes >/= 0.5mm: No Positive Cardiac Marker: Yes MARTÍN Risk Stratification Score: 4 MARTÍN % Risk: 20% Risk Objective Data Vital Signs: Vital Signs Temp Pulse Resp BP Pulse Ox O2 Del Method 98.7 F 91 18 158/89 H 96 Room Air 02/25/23 15:23 02/25/23 15:23 02/25/23 15:23 02/25/23 15:23 02/25/23 15:23 02/25/23 15:40 Oxygen Delivery Method Room Air Weight: 113 lb Body Mass Index (BMI) 21.3 Lab / Micro Data Result Diagrams: 02/25/23 15:35 02/25/23 15:35 Labs: Laboratory Results - last 24 hr 02/25/23 15:35: WBC 4.1 L, RBC 3.82 L, Hgb 11.3 L, Hct 33.2 L, MCV 86.9, MCH 29.6, MCHC 34.0, RDW Std Deviation 40.8, RDW Coeff of [place] 12.9, Plt Count 228, MPV 9.0, Immature Gran % (Auto) 0.200, Neut % (Auto) 91.2 H, Lymph % (Auto) 4.3 L, [place] % (Auto) 4.1, Eos % (Auto) 0.0, Baso % (Auto) 0.2, Absolute Neuts (auto) 3.8, Absolute Lymphs (auto) 0.18 L, Nucleated RBC % 0, Differential Comment SCANNED 02/25/23 15:35: Sodium 125 L, Potassium 4.9, Chloride 93 L, Carbon Dioxide 25.0, Anion Gap 7, BUN 25 H, Creatinine 1.12 H, Estim Creat Clear Calc 27.21, Est GFR (MDRD) Af Amer 59 L, Est GFR (MDRD) Non-Af 49 L, BUN/Creatinine Ratio 22.3 H, Glucose 134 H, Calcium 9.6, Troponin I High Sens 416 H* 02/25/23 15:35: B-Natriuretic Peptide 380.9 H 02/25/23 15:35: PT 13.5, INR 1.0, APTT 26.7 02/25/23 16:20: Urine Color Straw, Urine Clarity Clear, Urine pH 7.0, Ur Specific [place] 1.005, Urine Protein 30 H, Urine Glucose (UA) Normal, Urine Ketones Negative, Urine Occult Blood 10 H, Urine Nitrite Negative, Urine Bilirubin Negative, Urine Urobilinogen Normal, Ur Leukocyte Esterase Negative, Urine RBC 0 SEEN, Urine WBC 0-5 SEEN, Ur Squamous Epith Cells 0-5 SEEN, Urine Bacteria 0 SEEN, Urine Mucus 0 SEEN Cardiology Labs/Tests 02/25/23 15:35: WBC 4.1 L, RBC 3.82 L, Hgb 11.3 L, Hct 33.2 L, MCV 86.9, MCH 29.6, MCHC 34.0, Plt Count 228, MPV 9.0, Immature Gran % (Auto) 0.200, Neut % (Auto) 91.2 H, Lymph % (Auto) 4.3 L, [place] % (Auto) 4.1, Eos % (Auto) 0.0, Baso % (Auto) 0.2, Absolute Neuts (auto) 3.8, Nucleated RBC % 0 02/25/23 15:35: Sodium 125 L, Potassium 4.9, Chloride 93 L, Carbon Dioxide 25.0, Anion Gap 7, BUN 25 H, Creatinine 1.12 H, Est GFR (MDRD) Af Amer 59 L, Est GFR (MDRD) Non-Af 49 L, BUN/Creatinine Ratio 22.3 H, Glucose 134 H, Calcium 9.6 02/25/23 15:35: B-Natriuretic Peptide 380.9 H 02/25/23 15:35: PT 13.5, INR 1.0, APTT 26.7 02/25/23 16:20: Urine Color Straw, Urine Clarity Clear, Urine pH 7.0, Ur Specific [place] 1.005, Urine Protein 30 H, Urine Glucose (UA) Normal, Urine Ketones Negative, Urine Occult Blood 10 H, Urine Nitrite Negative, Urine Bilirubin Negative, Urine Urobilinogen Normal, Ur Leukocyte Esterase Negative, Urine RBC 0 SEEN, Urine WBC 0-5 SEEN Rhythm: EKG: ECHO: Stress Test: Cardiac Cath: PCI: CT Surgery: Holter monitor: EPS: PPM: CXR: Chest CT Scan: Radiography Diagnostic Testing: Radiology Impression Chest X-Ray 02/25/23 15:43 IMPRESSION: No radiographic evidence of acute cardiopulmonary disease. Electronically Signed: Nemo Eldridge MD at 16:57 EDT Reading Location ID and State: [id number] / Tel , Service support ,
[2023-02-25 17:39] LABS: Urine Sodium 42 mmol/L (Not Establ.)
[2023-02-25 17:46] VITALS: BP 174/94; PULSE 98; RESP 18; TEMP 36.6; O2SAT 99; BMI 21.3
[2023-02-25] MEDS: Heparin Injection (Vial) 5,000 UNIT/ML VIAL 3500 UNIT IV (18:00)
[2023-02-25 18:03] LABS: Osmolality, Urine 219 mOsm/KG
[2023-02-25 18:12] LABS: Hemoglobin A1c 5.9 % (3.8-5.6)
--- NOTE | 2023-02-25 18:13 | EKG12_ITS ---
Test Reason : CP ADMISSION Blood Pressure : / mmHG Vent. Rate : 092 BPM Atrial Rate : 092 BPM P-R Int : 172 ms QRS Dur : 122 ms QT Int : 388 ms P-R-T Axes : 054 -49 035 degrees QTc Int : 479 ms Normal sinus rhythm Possible Left atrial enlargement Right bundle branch block Left anterior fascicular block Bifascicular block Abnormal ECG When compared with ECG of 25-FEB-2023 15:49, MANUAL COMPARISON REQUIRED, DATA IS UNCONFIRMED Confirmed by SUN MARCANO, LORRIE ([id number]), editor & co founder VIRAL SIM ([id number]) on 02/26/2023 1:11:36 PM Referred By: YOLANDA Confirmed By:LORRIE GARSIA MD
[2023-02-25 18:29] LABS: Osmolality, Serum 281 mOsm/KG (280-301)
[2023-02-25] MEDS: Furosemide 40 MG/4 ML Vial IV (18:37)
[2023-02-25 18:58] LABS: Cholesterol 151 mg/dL (200); High Density Lipoprotein 90 mg/dL; Triglycerides 24 mg/dL; Very Low Density Lipoprotein 5 mg/dL (5-40)
[2023-02-25 20:30] VITALS: O2SAT 98
[2023-02-25 21:27] LABS: Troponin-I HS 453 pg/mL (3.0-54.0)
[2023-02-25 22:00] VITALS: PULSE 75
[2023-02-25] MEDS: Aspirin E.C. 81 MG Tablet PO (22:18)
[2023-02-25] MEDS: DULoxetine Hcl 20 MG Capsule PO (22:19)
[2023-02-25] MEDS: MELATONIN 3 MG TABLET PO (22:19)
[2023-02-25 22:47] LABS: Troponin-I HS 436 pg/mL (3.0-54.0)
[2023-02-26] VITALS (22 sets, daily range): BP systolic 82–169; BP diastolic 46–85; PULSE 46–94; RESP 16–18; TEMP 36.5–36.7; O2SAT 96–98
[2023-02-26 02:13] LABS: Troponin-I HS 430 pg/mL (3.0-54.0)
[2023-02-26] MEDS: Levothyroxine 25 MCG TABLET PO (05:36)
[2023-02-26 05:53] LABS: Absolute Lymphocyte Count 0.26 X10^3/uL (0.83-4.51); Absolute Neutrophil Count 3.4 X10^3/uL (2.0-7.7); Hematocrit 35.1 % (37-47); Hemoglobin 11.9 g/dL (12.0-15.0); Lymphocyte # 0.26 X10^3/ul (0.83-4.51); Lymphocyte % 6.6 % (19-41); Mean Corp Hgb Conc 33.9 g/dL (32-36); Mean Corpuscular Volume 85.4 fL (81-99); Mean Platelet Vol. 8.4 fl (6.2-12.0); Monocyte# 0.21 X10^3/uL; Monocyte% 5.4 % (0-10); NRBC Flagged by Analyzer 0 % (0-5); Neutrophil # 3.44 X10^3/uL (2.7-7.7); Neutrophil % 87.7 % (47-70); POSITIVE DIFFERENTIAL YES; Platelet Count 226 K/mm3 (150-450); RBC Distribution Width CV 12.6 % (11.6-14.6); RBC Distribution Width SD 39.1 fl (35.1-43.9); Red Blood Count 4.11 M/mm3 (4.2-5.4); White Blood Count 3.9 K/mm3 (4.4-11.0)
--- NOTE | 2023-02-26 05:55 | EKG12_ITS ---
Test Reason : AM EKG Blood Pressure : / mmHG Vent. Rate : 072 BPM Atrial Rate : 072 BPM P-R Int : 166 ms QRS Dur : 112 ms QT Int : 414 ms P-R-T Axes : 068 -39 040 degrees QTc Int : 453 ms Normal sinus rhythm Left axis deviation Incomplete right bundle branch block Abnormal ECG When compared with ECG of 25-FEB-2023 20:26, MANUAL COMPARISON REQUIRED, DATA IS UNCONFIRMED Confirmed by SUN MARCANO, LORRIE ([id number]), purchasing expeditor VIRAL SIM ([id number]) on 02/26/2023 1:11:27 PM Referred By: YOLANDA Confirmed By:LORRIE GARSIA MD
[2023-02-26 06:00] LABS: Differential Indicated SCAN CRITERIA MET
[2023-02-26 06:05] LABS: Partial Thromboplast Time 77.5 Seconds (24.1-36.2)
[2023-02-26 06:56] LABS: ALB/GLOB Ratio 0.8 RATIO (0.9-2.4); AST(SGOT) 22 U/L (15-37); Alanine Aminotransfer ALT/SGPT 23 U/L (13-56); Albumin, Serum 3.4 g/dL (3.2-5.0); Alkaline Phosphatase 82 U/L (45-117); Anion Gap 6 (5-15); BUN 29 mg/dL (7-18); BUN/Creat Ratio 25.2 RATIO (10-20); Calcium,Total 9.6 mg/dL (8.5-10.1); Chloride 94 mmol/L (98-107); Creatinine, Serum 1.15 mg/dL (0.55-1.02); EST Glomerular Filtration Rate 48 mL/min (>60); Est Glom Filt Rate - Afr Amer 57 mL/min (>60); Estimated Creatinine Clearance 27.77 ml/min; Globulin 4.1 g/dL (2.2-4.2); Glucose 142 mg/dL (74-106); Magnesium 2.3 mg/dL (1.6-2.6); Phosphorus 3.7 mg/dL (2.5-4.9); Protein, Total 7.5 g/dL (6.4-8.2); Sodium Level 128 mmol/L (136-145)
[2023-02-26] MEDS: Aspirin E.C. 81 MG Tablet PO ×2 (07:50→18:52)
[2023-02-26] MEDS: Losartan Potassium 25 MG Tablet 12.5 MG PO (07:50)
[2023-02-26] MEDS: Carvedilol 3.125 MG TABLET PO (08:10)
--- NOTE | 2023-02-26 09:36 | NURSING ---
Report called to Denise in [employer] at this time, [id number].
--- NOTE | 2023-02-26 10:14 | PN.HOSP_ITS ---
Subjective Subjective Doing well, denies any chest pain still has slight chest tightness. Troponins have stabilized Objective Data Objective Data Vital Signs: Vital Signs Temp Pulse Resp BP Pulse Ox O2 Del Method 97.7 F L 78 16 169/85 H 98 Room Air 02/26/23 07:37 02/26/23 07:37 02/26/23 07:37 02/26/23 07:37 02/26/23 07:37 02/26/23 08:10 Oxygen Delivery Method Room Air Weight: 116 lb 13.52 oz Body Mass Index (BMI) 21.3 Intake & Output: Intake and Output for Last 24 Hours 02/25/23 02/26/23 02/27/23 03:59 03:59 03:59 Intake Total 120 / 120 115.03 / 115.03 Output Total 0 / 0 Balance 120 / 120 115.03 / 115.03 Lab / Micro Data Result Diagrams: 02/26/23 05:45 02/26/23 05:45 Labs: Laboratory Results - last 24 hr 02/25/23 15:35: WBC 4.1 L, RBC 3.82 L, Hgb 11.3 L, Hct 33.2 L, MCV 86.9, MCH 29.6, MCHC 34.0, RDW Std Deviation 40.8, RDW Coeff of [place] 12.9, Plt Count 228, MPV 9.0, Immature Gran % (Auto) 0.200, Neut % (Auto) 91.2 H, Lymph % (Auto) 4.3 L, [place] % (Auto) 4.1, Eos % (Auto) 0.0, Baso % (Auto) 0.2, Absolute Neuts (auto) 3.8, Absolute Lymphs (auto) 0.18 L, Nucleated RBC % 0, Differential Comment SCANNED 02/25/23 15:35: Sodium 125 L, Potassium 4.9, Chloride 93 L, Carbon Dioxide 25.0, Anion Gap 7, BUN 25 H, Creatinine 1.12 H, Estim Creat Clear Calc 27.21, Est GFR (MDRD) Af Amer 59 L, Est GFR (MDRD) Non-Af 49 L, BUN/Creatinine Ratio 22.3 H, Glucose 134 H, Calcium 9.6, Troponin I High Sens 416 H* 02/25/23 15:35: B-Natriuretic Peptide 380.9 H 02/25/23 15:35: PT 13.5, INR 1.0, APTT 26.7 02/25/23 15:37: Uric Acid 4.0 02/25/23 15:37: Triglycerides 24, Cholesterol 151, LDL Cholesterol 56, VLDL Cholesterol 5, HDL Cholesterol 90 02/25/23 16:20: Urine Color Straw, Urine Clarity Clear, Urine pH 7.0, Ur Specific [place] 1.005, Urine Protein 30 H, Urine Glucose (UA) Normal, Urine Ketones Negative, Urine Occult Blood 10 H, Urine Nitrite Negative, Urine Bilirubin Negative, Urine Urobilinogen Normal, Ur Leukocyte Esterase Negative, Urine RBC 0 SEEN, Urine WBC 0-5 SEEN, Ur Squamous Epith Cells 0-5 SEEN, Urine Bacteria 0 SEEN, Urine Mucus 0 SEEN 02/25/23 16:20: Urine Osmolality 219, Ur Random Sodium 42 02/25/23 17:25: Serum Osmolality 281 02/25/23 17:25: Hemoglobin A1c 5.9 H 02/25/23 20:14: Troponin I High Sens 453 H* 02/25/23 22:11: Troponin I High Sens 436 H* 02/25/23 23:50: APTT 57.0 H 02/26/23 01:45: Troponin I High Sens 430 H* 02/26/23 05:45: WBC 3.9 L, RBC 4.11 L, Hgb 11.9 L, Hct 35.1 L, MCV 85.4, MCH 29.0, MCHC 33.9, RDW Std Deviation 39.1, RDW Coeff of [place] 12.6, Plt Count 226, MPV 8.4, Immature Gran % (Auto) 0.300, Neut % (Auto) 87.7 H, Lymph % (Auto) 6.6 L, [place] % (Auto) 5.4, Eos % (Auto) 0.0, Baso % (Auto) 0.0, Absolute Neuts (auto) 3.4, Absolute Lymphs (auto) 0.26 L, Nucleated RBC % 0, Diff Path Review December02/26/23 05:45: Sodium 128 L, Potassium 4.0, Chloride 94 L, Carbon Dioxide 28.0, Anion Gap 6, BUN 29 H, Creatinine 1.15 H, Estim Creat Clear Calc 27.77, Est GFR (MDRD) Af Amer 57 L, Est GFR (MDRD) Non-Af 48 L, BUN/Creatinine Ratio 25.2 H, Glucose 142 H, Calcium 9.6, Phosphorus 3.7, Magnesium 2.3, Total Bilirubin 0.50, AST 22, ALT 23, Alkaline Phosphatase 82, Total Protein 7.5, Albumin 3.4, Globulin 4.1, Albumin/Globulin Ratio 0.8 L, TSH 2.10 02/26/23 05:45: APTT 77.5 H Radiography Diagnostic Testing: Radiology Impression Chest X-Ray 02/25/23 15:43 IMPRESSION: No radiographic evidence of acute cardiopulmonary disease. Electronically Signed: Nemo Eldridge MD at 16:57 EDT Reading Location ID and State: [id number] / Tel , Service support , Physical Exam Narrative General: Alert, Oriented x3, Cooperative, No apparent distress HEENT: Atraumatic, PERRLA, EOMI, Normocephalic Oral: Moist Mucosa Neck: Supple, No JVD Lungs: Diminished, Normal air movement, No rhonchi, No wheeze, No rales Cardiovascular: Regular rate, Regular Rhythm, Normal S1, Normal S2, murmurs Abdomen: Soft, Non Tender, Non-Distended, No Hepato-splenomegaly Extremities: No edema, Capillary Refill Less than 3 Seconds Skin: No rashes, No breakdown Musculoskeletal: No Tenderness to Palpation of Joints or Extremities Neurological: Cranial nerves II-XII grossly intact, Motor Exam 5/5 strength throughout, Sensory exam intact to light touch and pain Psych/Mental Status: Anxious Assessment & Plan Assessment/Plan (1) NSTEMI, initial episode of care: (2) Hyponatremia: (3) Hyperglycemia: (4) Chronic kidney disease (CKD) stage G3a/A1, moderately decreased glomerular filtration rate (GFR) between 45-59 mL/min/1.73 square meter and albuminuria creatinine ratio less than 30 mg/g: PLAN: Plan 1. Non-STEMI unclear type/HTN/HLD/CAD status post stents ? We will consult cardiology plan for cardiac cath today ? Continue with heparin drip ? A1c of 5.9 ? Continue with her cholesterol and blood pressure medications ? Echo from 01/12/2022 with an EF of 60% and stable valvular disease 2. Hyponatremia she was sent in by her PCP for hyponatremia that is stable and at baseline 3. CKD 3 a ? Creatinine is at baseline we will continue to monitor 4. Lupus with chronic pain ? Stable ? Continue with her home medications 5. Hypothyroidism ? Stable ? Continue with Synthroid 6. Depression/anxiety ? Stable ? Continue her home medications DVT: Heparin drip Charges/Coding Visit Charges Inpatient E&M: 53287 Subs Hosp L2
--- NOTE | 2023-02-26 11:36 | PN.CARD_ITS ---
Subjective Subjective Patient seen and evaluated. Appears to doing well. Underwent cardiac catheterization today Objective Data Vital Signs: Vital Signs Temp Pulse Resp BP Pulse Ox O2 Del Method 97.7 F L 78 16 169/85 H 98 Room Air 02/26/23 07:37 02/26/23 07:37 02/26/23 07:37 02/26/23 07:37 02/26/23 07:45 02/26/23 08:10 Oxygen Delivery Method Room Air Weight: 116 lb 13.52 oz Body Mass Index (BMI) 21.3 Intake & Output: Intake and Output for Last 24 Hours 02/24/23 02/25/23 02/26/23 23:59 23:59 23:59 Intake Total 0 / 120 235.03 / 235.03 Output Total 0 / 0 Balance 0 / 120 235.03 / 235.03 Lab / Micro Data Result Diagrams: 02/26/23 05:45 02/26/23 05:45 Labs: Laboratory Results - last 24 hr 02/25/23 15:35: WBC 4.1 L, RBC 3.82 L, Hgb 11.3 L, Hct 33.2 L, MCV 86.9, MCH 29.6, MCHC 34.0, RDW Std Deviation 40.8, RDW Coeff of Young 12.9, Plt Count 228, MPV 9.0, Immature Gran % (Auto) 0.200, Neut % (Auto) 91.2 H, Lymph % (Auto) 4.3 L, [place] % (Auto) 4.1, Eos % (Auto) 0.0, Baso % (Auto) 0.2, Absolute Neuts (auto) 3.8, Absolute Lymphs (auto) 0.18 L, Nucleated RBC % 0, Differential Comment SCANNED 02/25/23 15:35: Sodium 125 L, Potassium 4.9, Chloride 93 L, Carbon Dioxide 25.0, Anion Gap 7, BUN 25 H, Creatinine 1.12 H, Estim Creat Clear Calc 27.21, Est GFR (MDRD) Af Amer 59 L, Est GFR (MDRD) Non-Af 49 L, BUN/Creatinine Ratio 22.3 H, Glucose 134 H, Calcium 9.6, Troponin I High Sens 416 H* 02/25/23 15:35: B-Natriuretic Peptide 380.9 H 02/25/23 15:35: PT 13.5, INR 1.0, APTT 26.7 02/25/23 15:37: Uric Acid 4.0 02/25/23 15:37: Triglycerides 24, Cholesterol 151, LDL Cholesterol 56, VLDL Cholesterol 5, HDL Cholesterol 90 02/25/23 16:20: Urine Color Straw, Urine Clarity Clear, Urine pH 7.0, Ur Specific [place] 1.005, Urine Protein 30 H, Urine Glucose (UA) Normal, Urine Ketones Negative, Urine Occult Blood 10 H, Urine Nitrite Negative, Urine Bilirubin Negative, Urine Urobilinogen Normal, Ur Leukocyte Esterase Negative, Urine RBC 0 SEEN, Urine WBC 0-5 SEEN, Ur Squamous Epith Cells 0-5 SEEN, Urine Bacteria 0 SEEN, Urine Mucus 0 SEEN 02/25/23 16:20: Urine Osmolality 219, Ur Random Sodium 42 02/25/23 17:25: Serum Osmolality 281 02/25/23 17:25: Hemoglobin A1c 5.9 H 02/25/23 20:14: Troponin I High Sens 453 H* 02/25/23 22:11: Troponin I High Sens 436 H* 02/25/23 23:50: APTT 57.0 H 02/26/23 01:45: Troponin I High Sens 430 H* 02/26/23 05:45: WBC 3.9 L, RBC 4.11 L, Hgb 11.9 L, Hct 35.1 L, MCV 85.4, MCH 29.0, MCHC 33.9, RDW Std Deviation 39.1, RDW Coeff of Young 12.6, Plt Count 226, MPV 8.4, Immature Gran % (Auto) 0.300, Neut % (Auto) 87.7 H, Lymph % (Auto) 6.6 L, [place] % (Auto) 5.4, Eos % (Auto) 0.0, Baso % (Auto) 0.0, Absolute Neuts (auto) 3.4, Absolute Lymphs (auto) 0.26 L, Nucleated RBC % 0, Diff Path Review December02/26/23 05:45: Sodium 128 L, Potassium 4.0, Chloride 94 L, Carbon Dioxide 28.0, Anion Gap 6, BUN 29 H, Creatinine 1.15 H, Estim Creat Clear Calc 27.77, Est GFR (MDRD) Af Amer 57 L, Est GFR (MDRD) Non-Af 48 L, BUN/Creatinine Ratio 25.2 H, Glucose 142 H, Calcium 9.6, Phosphorus 3.7, Magnesium 2.3, Total Bilirubin 0.50, AST 22, ALT 23, Alkaline Phosphatase 82, Total Protein 7.5, Albumin 3.4, Gl obulin 4.1, Albumin/Globulin Ratio 0.8 L, TSH 2.10 02/26/23 05:45: APTT 77.5 H Cardiology Labs/Tests 02/25/23 15:35: WBC 4.1 L, RBC 3.82 L, Hgb 11.3 L, Hct 33.2 L, MCV 86.9, MCH 29.6, MCHC 34.0, Plt Count 228, MPV 9.0, Immature Gran % (Auto) 0.200, Neut % (Auto) 91.2 H, Lymph % (Auto) 4.3 L, [place] % (Auto) 4.1, Eos % (Auto) 0.0, Baso % (Auto) 0.2, Absolute Neuts (auto) 3.8, Nucleated RBC % 0 02/25/23 15:35: Sodium 125 L, Potassium 4.9, Chloride 93 L, Carbon Dioxide 25.0, Anion Gap 7, BUN 25 H, Creatinine 1.12 H, Est GFR (MDRD) Af Amer 59 L, Est GFR (MDRD) Non-Af 49 L, BUN/Creatinine Ratio 22.3 H, Glucose 134 H, Calcium 9.6 02/25/23 15:35: B-Natriuretic Peptide 380.9 H 02/25/23 15:35: PT 13.5, INR 1.0, APTT 26.7 02/25/23 15:37: Uric Acid 4.0 02/25/23 15:37: Triglycerides 24, Cholesterol 151, LDL Cholesterol 56, VLDL Cholesterol 5, HDL Cholesterol 90 02/25/23 16:20: Urine Color Straw, Urine Clarity Clear, Urine pH 7.0, Ur Specific [place] 1.005, Urine Protein 30 H, Urine Glucose (UA) Normal, Urine Ketones Negative, Urine Occult Blood 10 H, Urine Nitrite Negative, Urine Bilirubin Negative, Urine Urobilinogen Normal, Ur Leukocyte Esterase Negative, Urine RBC 0 SEEN, Urine WBC 0-5 SEEN 02/25/23 17:25: Serum Osmolality 281 02/25/23 17:25: Hemoglobin A1c 5.9 H 02/25/23 23:50: APTT 57.0 H 02/26/23 05:45: WBC 3.9 L, RBC 4.11 L, Hgb 11.9 L, Hct 35.1 L, MCV 85.4, MCH 29.0, MCHC 33.9, Plt Count 226, MPV 8.4, Immature Gran % (Auto) 0.300, Neut % (Auto) 87.7 H, Lymph % (Auto) 6.6 L, [place] % (Auto) 5.4, Eos % (Auto) 0.0, Baso % (Auto) 0.0, Absolute Neuts (auto) 3.4, Nucleated RBC % 0 02/26/23 05:45: Sodium 128 L, Potassium 4.0, Chloride 94 L, Carbon Dioxide 28.0, Anion Gap 6, BUN 29 H, Creatinine 1.15 H, Est GFR (MDRD) Af Amer 57 L, Est GFR (MDRD) Non-Af 48 L, BUN/Creatinine Ratio 25.2 H, Glucose 142 H, Calcium 9.6, Phosphorus 3.7, Magnesium 2.3, Total Bilirubin 0.50 02/26/23 05:45: APTT 77.5 H Rhythm: EKG: ECHO: Stress Test: Cardiac Cath: PCI: CT Surgery: Holter monitor: EPS: PPM: CXR: Chest CT Scan: Radiography Diagnostic Testing: Radiology Impression Chest X-Ray 02/25/23 15:43 IMPRESSION: No radiographic evidence of acute cardiopulmonary disease. Electronically Signed: Nemo Eldridge MD at 16:57 EDT Reading Location ID and State: [id number] / Tel , Service support , Physical Exam Const alert, oriented x3 and no apparent distress General Appearance: cooperative HEENT hearing grossly normal bilaterally Head and Scalp: atraumatic Eyes EOMs intact bilaterally Neck General: normal visual inspection Chest inspection of chest normal and palpation of chest normal Resp normal respiratory effort Auscultation: clear to auscultation bilaterally Cardio regular rate, regular rhythm, S1 normal heart sound and S2 normal heart sound Jugular Venous Distention: JVD GI normal to inspection, nondistended, normoactive bowel sounds Extremity normal capillary refill and no pedal edema Peripheral Pulses: Yes pulses 2+ throughout and femoral pulses present Skin no rashes or lesions noted Neuro oriented x3 and CN's II-XII intact bilaterally Psych Appearance: grossly normal and appropriate Assessment & Plan Assessment/Plan (1) NSTEMI, initial episode of care: PLAN: She presents with a non-ST elevation myocardial infarction. She underwent a cardiac catheterization today which demonstrated normal left main coronary artery, Left anterior descending artery previously stented which was patent with mod erate disease. Left diagonal vessel which was previously stented and patent. Left circumflex artery with moderate disease. Dominant right coronary artery with mild diffuse disease. Preserved left ventricular systolic function. Based on the above angiographic findings I would recommend continued medical therapy. (2) Presence of stent in coronary artery: PLAN: Patient has a known history of coronary artery stenting in the LAD and diagonal vessels and these were noted to be patent (3) Essential (primary) hypertension: PLAN: Patient is noted to be hypertensive. We will recommend increasing the dose of the ARB. She apparently has been very fatigued on the beta-orion. This will be discontinued. I suspect some of her fatigue is also secondary to the hyponatremia. (4) Pure hypercholesterolemia: PLAN: We will continue with high intensity statin. Thank you for allowing me to participate in the care of your patient. Please don't hesitate to call if any issues arise.
--- NOTE | 2023-02-26 12:24 | CL.D_ITS ---
Patient Name: HUBERT DAVIS Study Date: 02/26/2023 Performing: Kwadwo Akhtar MD Ht: 61 inches 154.94 cm : 1935 Wt: 117 lbs 53 kg Age: 87 Gender: female BSA: 1.5 PROCEDURE(S) PERFORMED DC01-(97075)LHC/COR/LV CLINICAL PROFILE AND INDICATIONS Indications: Worsening Angina Heart Failure: NYHA Class: 2, Newly Diagnosed: Yes, Heart Failure Type: Diastolic Stress/Imaging Stress/Image Study Performed: No CAD Presentations: Non-STEMI. Symptom onset Date/Time: 02/25/23 Time Not Available CONCLUSIONS Nonobstructive coronary artery disease with stents in the LAD and diagonal vessel patent and mild diffuse disease noted in the circumflex artery and right coronary artery. RECOMMENDATIONS Medical therapy DESCRIPTION OF PROCEDURE The patient arrived to the procedure lab. The risks and benefits of the procedure as well as a full description of our services here and current unavailability of surgical backup were fully explained to the patient and/or their significant other prior to the catheterization. The Timeout was completed, verifying the correct patient and procedure. The patient's procedural site was prepped and draped in the usual fashion. Local anesthetic was given subcutaneously to right radial region with Lidocaine 2%. Using a modified Seldinger technique, arterial access was obtained via the right radial artery, a 6Fr sheath was inserted. Left Coronary Artery selective angiography was performed in multiple views using a 5 Fr. 4.0 [place] catheter. Right Coronary Artery selective angiography was then performed in multiple views using a 5 Fr. 4.0 [place] catheter. Left Ventriculography was performed in HARRELL projection using a 5 Fr. [place] catheter. LV to AO pullback pressures were then recorded.The arterial sheath was pulled and a TR Band was applied for hemostasis. 10cc air inserted. CORONARY ANGIOGRAPHY DOMINANCE: Right Dominant LEFT HEART ASSESSMENT Left Ventricular Ejection Fraction: by LV Gram 55 % Normal LV wall motion Normal Left Ventricular systolic function LEFT MAIN: Angiographically normal LEFT ANTERIOR DESCENDING ARTERY: Previously placed stents in the proximal left anterior descending arteries patent with mid segment 40 to 50% stenosis present DIAGONAL 1: Proximal - Previously placed stent is patent CIRCUMFLEX ARTERY: Midsegment with 40 to 50% stenosis with 3 obtuse marginal branches which are patent and posterolateral branch which is normal RIGHT CORONARY ARTERY: Posterior takeoff with mild 20 to 30% diffuse stenosis present COMPLICATIONS No Complications PROCEDURE MEDICATIONS Fentanyl 50 mcg IV Versed 1 mg IV Oxygen: 2 L/min via nasal cannula SUMMARY OF HEMODYNAMIC DATA Time AIR REST ECG 10:09:11 AO 142/67 (96) SA 11:02:54 LV 142/5, 15 11:07:51 LV 144/6, 15 11:07:56 LV 109/3, 12 11:09:21 LVp 118/3, 13 11:09:26 AOp 130/58 (90) 11:09:31 Signed By Kwadwo Akhtar MD On 02/26/2023 12:24:08 Kwadwo Akhtar MD
--- NOTE | 2023-02-26 12:25 | CASEMGMT ---
RN CM Face to Face with patient for initial transition planning/care coordination assessment. RN CM introduced self and role at [facility]. Patient lying in bed, alert and oriented, at bedside. Patient willing to participate in assessment and is able to answer all questions appropriately. Care providers, pharmacy, and demographics verified. Patient wishes to discharge home, denies need for home health at this time, will monitor progress with therapy. Patient states she has no further needs or concerns at this time. CM to follow for discharge planning needs that may arise. PCP: Deb Specialists: Hermilo inside steward/stewardess; RA Filomena; Lebron, pain; Darryl, Car Dumper Operator Helper Preferred Pharmacy: [facility] [place] Insurance: [facility] Prescription Benefit: yes Living Will/HPOA: yes, Bipin Dyson LNOK: , daughter Living Arrangements: Patient lives with in a tri-level house with 6 steps between levels. Patient is independent at home and able to ambulate stairs. Transportation: self, DME/HHC: Patient has shower chair, raised toilet, cane, walker, and grab bars at home. No previous HHC or SNF. Disposition Plan: Patient to discharge home with family support and follow-up plans in place. Will monitor progress with therapy. Melissa RAVI, RN, CM
[2023-02-26] MEDS: Hydroxychloroquine 200 MG Tablet PO (14:45)
--- NOTE | 2023-02-26 14:58 | DCINST_ITS ---
Discharge Instructions Diet Discharge Diet: Low fat / Low cholesterol Activity Discharge Activity: Return to Normal Activity Dressing / Incision Call your doctor if you observe: Fever of 101 or Higher, Shortness of breath, Dizziness, Fainting spells, Swelling in the ankles, Chest pain and Increased palpitations (irregular heartbeat) Follow Up Care Test Results: Test results from this visit will be discussed in further detail at your follow- up appointment, if applicable. Discharge Plan Admission Admit Date/Time: 02/25/23 16:49 Attending Provider: Sony Ibrahim Primary Care Provider: Dori Boyd Consulting Providers: Kwadwo Akhtar ; Colleen Ruiz Discharge Orders/Prescriptions Prescriptions: New furosemide 40 mg Tablet 40 mg PO DAILY 30 Days Qty: 30 0RF Continued colesevelam [WelChol] 625 mg tablet 1,250 mg PO DAILY coenzyme Q10 100 mg capsule 100 mg PO Q OTHER DAY Lactobacillus acidophilus 1 billion cell capsule 1,000 mmu cells PO Q OTHER DAY Rx Instructions: administer with a meal calcium carbonate 500 mg calcium (1,250 mg) tablet 500 mg PO DAILY vitamin B complex [B Complex-Vitamin B12] Tablet 1 tab PO Q OTHER DAY artifi.tears(hypromellose)(PF) 1.7 % drops with applicator 2 drp ophthalmic (eye) .AM albuterol sulfate 90 mcg/actuation HFA aerosol inhaler 1 - 2 puff inhalation Q6H PRN (Reason: shortness of breath or wheezing) Qty: 8.5 1RF levothyroxine 25 MCG tablet 25 mcg PO MOTUWETHFR Label Comments: thyroid cholecalciferol (vitamin D3) 25 mcg (1,000 unit) tablet 1,000 unit PO DAILY Label Comments: supplement levothyroxine 50 mcg Capsule 50 mcg PO SUSA tramadol 50 mg tablet 25 - 50 mg PO TID PRN (Reason: Pain) Label Comments: TAKE 1/2 TO 1 TABLET BY MOUTH 3 TIMES A DAY NEEDED FOR PAIN duloxetine 20 mg capsule,delayed release(DR/EC) 20 mg PO QHS Label Comments: TAKE 1 CAPSULE BY MOUTH EVERYDAY AT BEDTIME aspirin [Adult Low Dose Aspirin] 81 mg tablet,delayed release (DR/EC) 81 mg PO BID hydroxychloroquine 200 mg tablet 200 mg PO DAILY Changed losartan 25 mg tablet 25 mg PO DAILY 30 Days Qty: 30 4RF Discontinued carvedilol 3.125 mg tablet See Rx Instructions .ROUTE .COMPLEX Qty: 90 3RF Dose Instruction: TAKE 1 TABLET DAILY Rx Instructions: TAKE 1 TABLET DAILY Referrals / Follow Up: Kwadwo Akhtar MD [Med Staff - Active Staff] - Within 3 Months Dori Boyd DO [Primary Care Provider] - Within 1 Week Disposition Disposition (needs filled in before D/C Order can be placed): Home, Self Care
--- NOTE | 2023-02-26 15:12 | DS.PCM_ITS ---
Providers Date of Admission: 02/25/23 Primary Care Physician: Dr. Dori Boyd DO Consultations 02/25/23 18:13 Consult: Cardiology Routine Consulting Provider: Kwadwo Akhtar Reason for Consult: Chest Pain EMERGENT Consult: No MD Notified: Yes Date Notified: 02/25/23 Time Notified: 16:54 Method of Notification: Text Reason For Visit: NSTEMI/HYPONATREMIA Diagnosis Discharge Diagnosis (1) NSTEMI, initial episode of care: Status: Acute Code(s): I21.4 - Non-ST elevation (NSTEMI) myocardial infarction (2) Presence of stent in coronary artery: Status: Chronic Code(s): Z95.5 - Presence of coronary angioplasty implant and graft (3) Essential (primary) hypertension: Status: Chronic Code(s): I10 - Essential (primary) hypertension (4) Pure hypercholesterolemia: Status: Chronic Code(s): E78.00 - Pure hypercholesterolemia, unspecified Medications at Discharge Home Medications levothyroxine 25 mcg tablet 25 mcg PO MOTUWETHFR thyroid 12/13/15 colesevelam 625 mg tablet (WelChol) 1,250 mg PO DAILY diabetes 12/15/19 cholecalciferol (vitamin D3) 25 mcg (1,000 unit) tablet 1,000 unit PO DAILY supplement 08/24/20 Lactobacillus acidophilus 1 billion cell capsule 1,000 mmu cells PO Q OTHER DAY supplement 01/09/21 coenzyme Q10 100 mg capsule 100 mg PO Q OTHER DAY supplement 01/09/21 aspirin 81 mg tablet,delayed release (Adult Low Dose Aspirin) 81 mg PO BID heart health 08/01/21 calcium carbonate 500 mg calcium (1,250 mg) tablet 500 mg PO DAILY supplement 06/15/22 vitamin B complex (B Complex-Vitamin B12 tablet) 1 tab PO Q OTHER DAY vitamin 06/15/22 albuterol sulfate 90 mcg/actuation aerosol inhaler 1 - 2 puff inhalation Q6H PRN shortness of breath or wheezing #8.5 grams 08/09/22 artifi.tears(hypromellose)(PF) 1.7 % eye drops with applicator 2 drp ophthalmic (eye) .AM eye health 08/09/22 hydroxychloroquine 200 mg tablet 200 mg PO DAILY arthritis 01/25/23 levothyroxine 50 mcg capsule 50 mcg PO SUSA thyroid 02/20/23 duloxetine 20 mg capsule,delayed release 20 mg PO QHS MOOD 02/25/23 tramadol 50 mg tablet 25 - 50 mg PO TID PRN Pain 02/25/23 furosemide 40 mg tablet 40 mg PO DAILY 30 days #30 tabs 02/26/23 losartan 25 mg tablet 25 mg PO DAILY 30 days #30 tabs 02/26/23 Hospital Course Operations None Procedures Cardiac catheterization Summary of Care Provided Minutes Spent on Discharge: 40 Hospital Course: Per HPI: HUBERT DAVIS, is a 87 F who presented to the emergency department at [facility] on 02/25/2023 at the instruction of her primary care physician due to concerning labs that she had yesterday.? She was found to be hyponatremic with a sodium of 125.? Upon my questioning the patient reports that she has had worsening fatigue and generalized weakness that is been slowly progressively worsening over the last 2 months.? She also reports decreased exercise tolerance and shortness of breath with exertion.? Her has been helping more with household activities as she has been having difficulty going up and down stairs but was contributing to her hip.? Her limitation was fatigue and shortness of breath.? She has been having some upper chest and neck tightness that has been worsening over the last several weeks as well.? She had a previous catheterization in 2019 at which time a stent was placed in her proximal and mid LAD and proximal first diagonal.? She states her symptoms that she is experiencing now are similar to symptoms she was having at that time.? Patient is also complaining of worsening swelling in her lower extremities. Vital signs on presentation show a temperature of 98.7, blood pressure 158/89, respiratory to 18, oxygen saturations 96% on room air.? CBC shows mild leukopenia with a white count of 4.1 which is new, anemia with a hemoglobin of 11.3, and a platelet count which is normal at 220,000.? Coags are normal.? Chemistry panel shows hyponatremia the sodium of 125, serum creatinine is at her baseline elevation at 1.12 and her glucose is 134.? Patient did admit that she was recently placed on a Medrol Dosepak so this may be why her glucose is elevated compared to previous.? Her BNP was 380.9 and her troponin was 416 UA is unremarkable and specific gravity is 1.005.? Chest x-ray was unremarkable for any acute findings.? EKG shows right bundle branch block which is chronic and no ST-T wave changes concerning for ischemia.? Intervals are normal. Hospital Course: 1. Non-STEMI unclear type/HTN/HLD/CAD status post stents?87-year-old female presents to the hospital because of hyponatremia that is fairly baseline and chronic for her she is also been having increased fatigue and weakness as well as chest tightness. She had a series of troponins obtained that were elevated but stable in the mid 400s. Cardiology was consulted and they proceeded with a cardiac catheterization which did not show any significant coronary artery disease, her stents were still patent with moderate disease. Cardiology recommended medication changes including discontinuation of her Coreg and increasing her losartan from 12.5 mg to 25 mg daily and also adding Lasix 40 mg p.o. daily. Her sodium is now 128 which is still within her baseline range. She is denying any further chest discomfort and I discussed with her the possibility of discharge and she is a risk going home and is home today. I discussed the discharge plan as well with cardiology who felt that she was stable to go home as well. Given her new Lasix medication we recommend outpatient follow-up with her BMP to monitor her renal function. I recommend that she follow-up with her PCP in 3 to 5 days and cardiology within the next 2 to 3 months. 2. CKD 3a, lupus with chronic pain, hypothyroidism, depression, anxiety are chronic medical conditions which complicate her care. Her home medications were continued where appropriate. In my experience with her during this hospitalization she is a very anxious individual which could easily be playing a role with her symptomatology from a cardiac standpoint. Weight / BMI Weight Weight: 116 lb 13.52 oz Body Mass Index (BMI) 21.3 ABG / Lab / Microbiology Data Result Diagrams: 02/26/23 05:45 02/26/23 05:45 Laboratory: Laboratory Results - last 24 hr 02/25/23 15:35: WBC 4.1 L, RBC 3.82 L, Hgb 11.3 L, Hct 33.2 L, MCV 86.9, MCH 29.6, MCHC 34.0, RDW Std Deviation 40.8, RDW Coeff of Young 12.9, Plt Count 228, MPV 9.0, Immature Gran % (Auto) 0.200, Neut % (Auto) 91.2 H, Lymph % (Auto) 4.3 L, [place] % (Auto) 4.1, Eos % (Auto) 0.0, Baso % (Auto) 0.2, Absolute Neuts (auto) 3.8, Absolute Lymphs (auto) 0.18 L, Nucleated RBC % 0, Differential Comment SCANNED 02/25/23 15:35: Sodium 125 L, Potassium 4.9, Chloride 93 L, Carbon Dioxide 25.0, Anion Gap 7, BUN 25 H, Creatinine 1.12 H, Estim Creat Clear Calc 27.21, Est GFR (MDRD) Af Amer 59 L, Est GFR (MDRD) Non-Af 49 L, BUN/Creatinine Ratio 22.3 H, Glucose 134 H, Calcium 9.6, Troponin I High Sens 416 H* 02/25/23 15:35: B-Natriuretic Peptide 380.9 H 02/25/23 15:35: PT 13.5, INR 1.0, APTT 26.7 02/25/23 15:37: Uric Acid 4.0 02/25/23 15:37: Triglycerides 24, Cholesterol 151, LDL Cholesterol 56, VLDL Cholesterol 5, HDL Cholesterol 90 02/25/23 16:20: Urine Color Straw, Urine Clarity Clear, Urine pH 7.0, Ur Specific [place] 1.005, Urine Protein 30 H, Urine Glucose (UA) Normal, Urine Ketones Negative, Urine Occult Blood 10 H, Urine Nitrite Negative, Urine Bilirubin Negative, Urine Urobilinogen Normal, Ur Leukocyte Esterase Negative, Urine RBC 0 SEEN, Urine WBC 0-5 SEEN, Ur Squamous Epith Cells 0-5 SEEN, Urine Bacteria 0 SEEN, Urine Mucus 0 SEEN 02/25/23 16:20: Urine Osmolality 219, Ur Random Sodium 42 02/25/23 17:25: Serum Osmolality 281 02/25/23 17:25: Hemoglobin A1c 5.9 H 02/25/23 20:14: Troponin I High Sens 453 H* 02/25/23 22:11: Troponin I High Sens 436 H* 02/25/23 23:50: APTT 57.0 H 02/26/23 01:45: Troponin I High Sens 430 H* 02/26/23 05:45: WBC 3.9 L, RBC 4.11 L, Hgb 11.9 L, Hct 35.1 L, MCV 85.4, MCH 29.0, MCHC 33.9, RDW Std Deviation 39.1, RDW Coeff of Young 12.6, Plt Count 226, MPV 8.4, Immature Gran % (Auto) 0.300, Neut % (Auto) 87.7 H, Lymph % (Auto) 6.6 L, [place] % (Auto) 5.4, Eos % (Auto) 0.0, Baso % (Auto) 0.0, Absolute Neuts (auto) 3.4, Absolute Lymphs (auto) 0.26 L, Nucleated RBC % 0, Diff Path Review December02/26/23 05:45: Sodium 128 L, Potassium 4.0, Chloride 94 L, Carbon Dioxide 28.0, Anion Gap 6, BUN 29 H, Creatinine 1.15 H, Estim Creat Clear Calc 27.77, Est GFR (MDRD) Af Amer 57 L, Est GFR (MDRD) Non-Af 48 L, BUN/Creatinine Ratio 25.2 H, Glucose 142 H, Calcium 9.6, Phosphorus 3.7, Magnesium 2.3, Total Bilirubin 0.50, AST 22, ALT 23, Alkaline Phosphatase 82, Total Protein 7.5, Albumin 3.4, Globulin 4.1, Albumin/Globulin Ratio 0.8 L, TSH 2.10 02/26/23 05:45: APTT 77.5 H Radiography Diagnostic Testing: Radiology Impression Chest X-Ray 02/25/23 15:43 IMPRESSION: No radiographic evidence of acute cardiopulmonary disease. Electronically Signed: Nemo Eldridge MD at 16:57 EDT Reading Location ID and State: [id number] / Tel , Service support , D/C Instructions Discharge Diet: Low fat / Low cholesterol Call your doctor if you observe: Fever of 101 or Higher, Shortness of breath, Dizziness, Fainting spells, Swelling in the ankles, Chest pain and Increased palpitations (irregular heartbeat) Meaningful Use Info Meaningful Use Diagnoses (Choose all that apply): None applicable Discharge Plan Admission Admit Date/Time: 02/25/23 16:49 Attending Provider: Sony Ibrahim Primary Care Provider: Dori Boyd Consulting Providers: Kwadwo Akhtar ; Colleen Ruiz Instructions Additional Instructions / Restrictions: With your PCP in 3 to 5 days to monitor your renal function with a BMP since you were started on Lasix and had your losartan increased. Discharge Orders/Prescriptions Prescriptions: New furosemide 40 mg Tablet 40 mg PO DAILY 30 Days Qty: 30 0RF Continued colesevelam [WelChol] 625 mg tablet 1,250 mg PO DAILY coenzyme Q10 100 mg capsule 100 mg PO Q OTHER DAY Lactobacillus acidophilus 1 billion cell capsule 1,000 mmu cells PO Q OTHER DAY Rx Instructions: administer with a meal calcium carbonate 500 mg calcium (1,250 mg) tablet 500 mg PO DAILY vitamin B complex [B Complex-Vitamin B12] Tablet 1 tab PO Q OTHER DAY artifi.tears(hypromellose)(PF) 1.7 % drops with applicator 2 drp ophthalmic (eye) .AM albuterol sulfate 90 mcg/actuation HFA aerosol inhaler 1 - 2 puff inhalation Q6H PRN (Reason: shortness of breath or wheezing) Qty: 8.5 1RF levothyroxine 25 MCG tablet 25 mcg PO MOTUWETHFR Label Comments: thyroid cholecalciferol (vitamin D3) 25 mcg (1,000 unit) tablet 1,000 unit PO DAILY Label Comments: supplement levothyroxine 50 mcg Capsule 50 mcg PO SUSA tramadol 50 mg tablet 25 - 50 mg PO TID PRN (Reason: Pain) Label Comments: TAKE 1/2 TO 1 TABLET BY MOUTH 3 TIMES A DAY NEEDED FOR PAIN duloxetine 20 mg capsule,delayed release(DR/EC) 20 mg PO QHS Label Comments: TAKE 1 CAPSULE BY MOUTH EVERYDAY AT BEDTIME aspirin [Adult Low Dose Aspirin] 81 mg tablet,delayed release (DR/EC) 81 mg PO BID hydroxychloroquine 200 mg tablet 200 mg PO DAILY Changed losartan 25 mg tablet 25 mg PO DAILY 30 Days Qty: 30 4RF Discontinued carvedilol 3.125 mg tablet See Rx Instructions .ROUTE .COMPLEX Qty: 90 3RF Dose Instruction: TAKE 1 TABLET DAILY Rx Instructions: TAKE 1 TABLET DAILY Referrals / Follow Up: Kwadwo Akhtar MD [Med Staff - Active Staff] - Within 3 Months Dori Boyd DO [Primary Care Provider] - Within 1 Week Disposition Disposition (needs filled in before D/C Order can be placed): Home, Self Care Charges/Coding Visit Charges Inpatient E&M: 94420 Disch Hosp >30min
--- NOTE | 2023-02-26 15:31 | CASEMGMT ---
Patient has order for discharge. Patient did well with therapy, no therapy recommended. Patient and denied needs at this time. Patient and had no further questions or concerns at this time.
--- NOTE | 2023-02-26 16:02 | PHA.DC.MC ---
Pharmacy Service has performed discharge medication reconciliation and counseling for this patient. 1. FUROSEMIDE 40MG PO DAILY The patient's discharge medication list was reviewed for discrepancies and discrepancies were resolved. Home Medications levothyroxine 25 mcg tablet 25 mcg PO MOTUWETHFR thyroid 12/13/15 colesevelam 625 mg tablet (WelChol) 1,250 mg PO DAILY diabetes 12/15/19 cholecalciferol (vitamin D3) 25 mcg (1,000 unit) tablet 1,000 unit PO DAILY supplement 08/24/20 Lactobacillus acidophilus 1 billion cell capsule 1,000 mmu cells PO Q OTHER DAY supplement 01/09/21 coenzyme Q10 100 mg capsule 100 mg PO Q OTHER DAY supplement 01/09/21 aspirin 81 mg tablet,delayed release (Adult Low Dose Aspirin) 81 mg PO BID heart health 08/01/21 calcium carbonate 500 mg calcium (1,250 mg) tablet 500 mg PO DAILY supplement 06/15/22 vitamin B complex (B Complex-Vitamin B12 tablet) 1 tab PO Q OTHER DAY vitamin 06/15/22 albuterol sulfate 90 mcg/actuation aerosol inhaler 1 - 2 puff inhalation Q6H PRN shortness of breath or wheezing #8.5 grams 08/09/22 artifi.tears(hypromellose)(PF) 1.7 % eye drops with applicator 2 drp ophthalmic (eye) .AM eye health 08/09/22 hydroxychloroquine 200 mg tablet 200 mg PO DAILY arthritis 01/25/23 levothyroxine 50 mcg capsule 50 mcg PO SUSA thyroid 02/20/23 duloxetine 20 mg capsule,delayed release 20 mg PO QHS MOOD 02/25/23 tramadol 50 mg tablet 25 - 50 mg PO TID PRN Pain 02/25/23 furosemide 40 mg tablet 40 mg PO DAILY 30 days #30 tabs 02/26/23 losartan 25 mg tablet 25 mg PO DAILY 30 days #30 tabs 02/26/23 The patient was counseled on the following discharge medications and changes in medications for homegoing were reviewed. The Reason for Use, instructions for use, and potential side effects were reviewed for all new medications. The patient's questions regarding all of their medications were answered. The patient was able to verbally demonstrate an understanding of their discharge medications.
[2023-02-26] MEDS: DULoxetine Hcl 20 MG Capsule PO (21:16)
[2023-02-27] VITALS: BP 109/61; PULSE 69; RESP 16; TEMP 36.8; O2SAT 97
[2023-02-27] MEDS: Levothyroxine 25 MCG TABLET PO (06:00)
[2023-02-27 07:14] LABS: Hemoglobin 11.4 g/dL (12.0-15.0); Lymphocyte % 5.3 % (19-41); Mean Corp Hgb Conc 33.5 g/dL (32-36); Mean Corpuscular Hgb 29.2 pg (27.0-32.0); Mean Corpuscular Volume 87.2 fL (81-99); Mean Platelet Vol. 9.3 fl (6.2-12.0); Monocyte% 5.3 % (0-10); NRBC Flagged by Analyzer 0 % (0-5); Neutrophil % 89.2 % (47-70); POSITIVE DIFFERENTIAL YES; Platelet Count 243 K/mm3 (150-450); RBC Distribution Width CV 12.7 % (11.6-14.6); RBC Distribution Width SD 40.6 fl (35.1-43.9); White Blood Count 5.6 K/mm3 (4.4-11.0)
[2023-02-27 07:24] LABS: Differential Indicated SCAN CRITERIA MET
[2023-02-27 07:30] VITALS: O2SAT 94
[2023-02-27 07:37] LABS: Anion Gap 6 (5-15); BUN 37 mg/dL (7-18); BUN/Creat Ratio 32.7 RATIO (10-20); Calcium,Total 9.2 mg/dL (8.5-10.1); Chloride 95 mmol/L (98-107); Creatinine, Serum 1.13 mg/dL (0.55-1.02); EST Glomerular Filtration Rate 48 mL/min (>60); Est Glom Filt Rate - Afr Amer 59 mL/min (>60); Estimated Creatinine Clearance 28.26 ml/min; Glucose 128 mg/dL (74-106); Potassium 4.9 mmol/L (3.5-5.1); Sodium Level 129 mmol/L (136-145)
[2023-02-27 08:00] VITALS: BP 124/72; PULSE 71; RESP 16; TEMP 36.6; O2SAT 96
[2023-02-27] MEDS: Aspirin E.C. 81 MG Tablet PO (08:32)
[2023-02-27] MEDS: Hydroxychloroquine 200 MG Tablet PO (08:32)
[2023-02-27 09:44] LABS: Pathologist Review Reviewed
[2023-02-27 10:15] VITALS: BP 108/63; PULSE 78
[2023-02-27] MEDS: Furosemide 40 MG Tablet PO (10:18)
[2023-02-27] MEDS: Vitamin B Comp W-C Capsule 1 CAP PO (10:18)
[2023-02-27] MEDS: Colestipol 1 GM TABLET PO (10:18)
[2023-02-27] MEDS: Glycerin/Hypromellose/PEG400 15 ml Bottle 2 DRP OPHTHALMIC (10:18)
[2023-02-27] MEDS: Losartan Potassium 25 MG Tablet PO (10:18)
[2023-02-27] MEDS: Cholecalciferol (VIT D3) 25 MCG TABLET (1,000 UNITS) PO (10:18)
[2023-02-27 11:39] VITALS: BP 114/66; PULSE 72; RESP 16; TEMP 36.6; O2SAT 96
[2023-02-27] MEDS: Calcium (Elemental) 500 MG Tablet PO (13:01)
[2023-02-27 13:13] VITALS: BP 128/73; PULSE 79; RESP 16; TEMP 36.6; O2SAT 97
== END 2023-02-27 13:52 | disposition home or self-care (01) | DRG 281 ==
LOC: ED 16:37 → PCU 17:07
PROVIDERS: Internal Medicine Cardiovascular Disease; Admitting Provider Internal Medicine; Emergency Provider Student in an Organized Health Care Education/Training Program; PCP Internal Medicine; Visit Provider Family Medicine
DX: I21.4 Non-ST elevation (NSTEMI) myocardial infarction (principal); I13.0 Hypertensive heart and chronic kidney disease with heart failure and stage 1 through stage 4 chronic kidney disease, or unspecified chronic kidney disease; E87.1 Hypo-osmolality and hyponatremia; I50.32 Chronic diastolic (congestive) heart failure; D63.1 Anemia in chronic kidney disease; I45.10 Unspecified right bundle-branch block; N18.31 Chronic kidney disease, stage 3a; I25.110 Atherosclerotic heart disease of native coronary artery with unstable angina pectoris; M32.9 Systemic lupus erythematosus, unspecified; E78.00 Pure hypercholesterolemia, unspecified; E03.9 Hypothyroidism, unspecified; F32.A Depression, unspecified; F41.9 Anxiety disorder, unspecified; I25.2 Old myocardial infarction; I08.3 Combined rheumatic disorders of mitral, aortic and tricuspid valves; G89.29 Other chronic pain; R73.9 Hyperglycemia, unspecified; Z95.5 Presence of coronary angioplasty implant and graft; Z79.02 Long term (current) use of antithrombotics/antiplatelets; Z79.82 Long term (current) use of aspirin; Z79.899 Other long term (current) drug therapy; Z86.16 Personal history of COVID-19
CPT/HCPCS: 36415; 71045; 80048; 80053; 80061; 81001; 83036; 83735; 83880; 83930; 83935; 84100; 84300; 84443; 84484; 84550; 85025; 85610; 85730; 93005; 93458; 94668; 97161; 97166; 99152; 99153; 99252; 99285; J7040; A4216; C1769; C1894; G0463; J1940; Q9967

== ENCOUNTER → 2023-03-15 | Outpatient (CLI) | payer MEDICARE, SELFPAY ==
[2019-02-27 14:50] VITALS: BMI 22.1
[2023-03-15 17:54] LABS: Absolute Lymphocyte Count 0.55 X10^3/uL (0.83-4.51); Absolute Neutrophil Count 3.3 X10^3/uL (2.0-7.7); Basophil# 0.02 X10^3/uL; Basophil% 0.4 % (0-1); Eosinophil# 0.08 X10^3/uL; Eosinophils% 1.7 % (0-5); Hematocrit 34.5 % (37-47); Hemoglobin 11.3 g/dL (12.0-15.0); Lymphocyte # 0.55 X10^3/ul (0.83-4.51); Lymphocyte % 11.9 % (19-41); Mean Corp Hgb Conc 32.8 g/dL (32-36); Mean Corpuscular Hgb 29.4 pg (27.0-32.0); Mean Corpuscular Volume 89.6 fL (81-99); Mean Platelet Vol. 9.5 fl (6.2-12.0); Monocyte# 0.67 X10^3/uL; Monocyte% 14.5 % (0-10); NRBC Flagged by Analyzer 0 % (0-5); Neutrophil % 71.3 % (47-70); POSITIVE DIFFERENTIAL YES; Platelet Count 210 K/mm3 (150-450); RBC Distribution Width CV 13.2 % (11.6-14.6); RBC Distribution Width SD 43.1 fl (35.1-43.9); Red Blood Count 3.85 M/mm3 (4.2-5.4); White Blood Count 4.6 K/mm3 (4.4-11.0)
[2023-03-15 18:02] LABS: Differential Indicated SCAN CRITERIA MET
[2023-03-15 18:23] LABS: ALB/GLOB Ratio 0.8 RATIO (0.9-2.4); AST(SGOT) 25 U/L (15-37); Alanine Aminotransfer ALT/SGPT 22 U/L (13-56); Albumin, Serum 3.3 g/dL (3.2-5.0); Alkaline Phosphatase 75 U/L (45-117); Anion Gap 3 (5-15); BUN 32 mg/dL (7-18); BUN/Creat Ratio 21.2 RATIO (10-20); Calcium,Total 9.2 mg/dL (8.5-10.1); Chloride 95 mmol/L (98-107); Creatinine, Serum 1.51 mg/dL (0.55-1.02); EST Glomerular Filtration Rate 35 mL/min (>60); Est Glom Filt Rate - Afr Amer 42 mL/min (>60); Glucose 88 mg/dL (74-106); Potassium 4.9 mmol/L (3.5-5.1); Protein, Total 7.3 g/dL (6.4-8.2); Sodium Level 129 mmol/L (136-145)
[2023-03-15 18:33] LABS: Differential Comment SCANNED
== END | disposition home or self-care (01) ==
LOC: MTLAB 14:44
PROVIDERS: PCP Internal Medicine; Referring Provider Internal Medicine Rheumatology; Visit Provider Internal Medicine Rheumatology
DX: M06.4 Inflammatory polyarthropathy (principal); R76.8 Other specified abnormal immunological findings in serum; Z79.899 Other long term (current) drug therapy
CPT/HCPCS: 36415; 80053; 85025

== ENCOUNTER → 2023-07-31 | Outpatient (CLI) | payer MEDICARE, SELFPAY ==
[2019-02-27 14:50] VITALS: BMI 22.1
[2023-07-31 17:33] LABS: Absolute Lymphocyte Count 0.82 X10^3/uL (0.83-4.51); Absolute Neutrophil Count 3.8 X10^3/uL (2.0-7.7); Basophil# 0.02 X10^3/uL; Basophil% 0.4 % (0-1); Eosinophil# 0.11 X10^3/uL; Hemoglobin 11.6 g/dL (12.0-15.0); Lymphocyte # 0.82 X10^3/ul (0.83-4.51); Mean Corp Hgb Conc 33.1 g/dL (32-36); Mean Corpuscular Hgb 31.2 pg (27.0-32.0); Mean Corpuscular Volume 94.1 fL (81-99); Mean Platelet Vol. 8.7 fl (6.2-12.0); Monocyte# 0.71 X10^3/uL; NRBC Flagged by Analyzer 0 % (0-5); Neutrophil % 69.4 % (47-70); Platelet Count 221 K/mm3 (150-450); RBC Distribution Width CV 12.4 % (11.6-14.6); Red Blood Count 3.72 M/mm3 (4.2-5.4); White Blood Count 5.5 K/mm3 (4.4-11.0)
[2023-07-31 18:17] LABS: AST(SGOT) 20 U/L (15-37); Alanine Aminotransfer ALT/SGPT 24 U/L (13-56); Albumin, Serum 3.7 g/dL (3.2-5.0); Alkaline Phosphatase 92 U/L (45-117); Bilirubin, Direct 0.08 mg/dL (0.00-0.30); Globulin 3.7 g/dL (2.2-4.2); Protein, Total 7.4 g/dL (6.4-8.2)
== END | disposition home or self-care (01) ==
LOC: MTLAB 16:24
PROVIDERS: PCP Internal Medicine; Referring Provider Dermatology; Visit Provider Dermatology
DX: L93.1 Subacute cutaneous lupus erythematosus (principal); Z79.899 Other long term (current) drug therapy
CPT/HCPCS: 36415; 80076; 85025

== ENCOUNTER 2023-08-03 12:03 | Emergency (ER) | payer MEDICARE, SELFPAY ==
[2019-02-27 14:50] VITALS: BMI 22.1
[2023-08-03 12:04] VITALS: BP 146/74; PULSE 86; RESP 16; TEMP 36.1; O2SAT 99; BMI 20.1
--- NOTE | 2023-08-03 12:27 | EDS_ITS ---
HPI <BEL Schulte - Last Filed: 08/03/23 15:41> History of Present Illness Chief Complaint: Lower Extremity Injury Narrative Narrative: Patient is a 88-year-old female with history of ACS, hypertension, hyperlipidemia, thyroidism, CHF who presents to the emergency department for acute on chronic right hip pain. Patient states that she has been having worsening pain over the last several weeks, she saw her pain management doctor on Saturday, she usually takes half a tablet of tramadol however the pain management physician recommended taking 1 full dose of tramadol. Patient stated is not helping. He did offer a more stronger pain medicine however she declined. Patient's the pain today is worse, she has pain to her right hip to her right back into her groin. She denies any bowel or bladder incontinence. She states difficulty get around. She denies any falls or injuries. PFSH <BEL Schulte - Last Filed: 08/03/23 15:41> [facility] Medical History Atherosclerosis of [place] coronary artery of [place] heart without angina pectoris Cataract Chest pain CHF (congestive heart failure) Chronic kidney disease (CKD) stage G3a/A1, moderately decreased glomerular filtration rate (GFR) between 45-59 mL/min/1.73 square meter and albuminuria creatinine ratio less than 30 mg/g Contact with and (suspected) exposure to other viral communicable diseases COVID-19 (~12/2021) Diastolic dysfunction Dyspnea Essential (primary) hypertension GERD (gastroesophageal reflux disease) History of pneumonia Hx of congestive heart failure Lupus Non-rheumatic tricuspid valve insufficiency Nonrheumatic aortic valve insufficiency Nonrheumatic mitral valve insufficiency Nonrheumatic mitral valve prolapse Old myocardial infarction Presence of stent in coronary artery (~03/08/19) Pure hypercholesterolemia Rheumatoid arthritis Troponin I above reference range URI (upper respiratory infection) Home Medications levothyroxine 25 mcg tablet 25 mcg PO MOTUWETHFR thyroid 12/13/15 [History Last Taken 02/23/23] colesevelam 625 mg tablet (WelChol) 1,250 mg PO DAILY diabetes 12/15/19 [History Last Taken 02/24/23] cholecalciferol (vitamin D3) 25 mcg (1,000 unit) tablet 1,000 unit PO DAILY supplement 08/24/20 [History Last Taken 02/25/23] coenzyme Q10 100 mg capsule 100 mg PO Q OTHER DAY supplement 01/09/21 [History Last Taken 02/25/23] calcium carbonate 500 mg calcium (1,250 mg) tablet 500 mg PO DAILY supplement 06/15/22 [History Last Taken 02/25/23] albuterol sulfate 90 mcg/actuation aerosol inhaler 1 - 2 puff inhalation Q6H PRN shortness of breath or wheezing #8.5 grams 08/09/22 [Rx Last Taken Unknown] artifi.tears(hypromellose)(PF) 1.7 % eye drops with applicator 2 drp ophthalmic (eye) .AM eye health 08/09/22 [History Last Taken 02/25/23] levothyroxine 50 mcg capsule 50 mcg PO SUSA thyroid 02/20/23 [History Last Taken 02/25/23] duloxetine 20 mg capsule,delayed release 20 mg PO QHS MOOD 02/25/23 [History Last Taken 02/25/23] tramadol 50 mg tablet 25 - 50 mg PO TID PRN Pain 02/25/23 [History Last Taken 02/25/23] aspirin 81 mg tablet,delayed release (Adult Low Dose Aspirin) 81 mg PO DAILY heart health 03/04/23 [History Last Taken Unknown] furosemide 40 mg tablet 20 mg (1/2 x 40 mg) PO DAILY Please don't refill until pt calls: she has GOBS. #90 tabs 06/28/23 [Rx Last Taken Unknown] Standard process PO 07/22/23 [History Last Taken Unknown] hydroxychloroquine 200 mg tablet 200 mg PO DAILY 07/22/23 [History Last Taken Unknown] losartan 25 mg tablet 25 mg PO DAILY 07/22/23 [History Last Taken Unknown] vitamin B complex (B Complex-Vitamin B12 tablet) 1 tab PO DAILY vitamin 07/22/23 [History Last Taken Unknown] hydrocodone-acetaminophen 5-325mg 5mg-325mg 1 tab PO Q4H PRN PRN Pain 3 days #12 TABLETS 08/03/23 [Rx Last Taken Unknown] Allergy/AdvReac Type Severity Reaction Status Date / Time nitrofurantoin Allergy Intermediate thrush Verified 08/03/23 13:47 [From Macrobid] latex Allergy Mild Rash Verified 08/03/23 13:47 Penicillins [PCN] Allergy not sure Verified 08/03/23 13:47 Sdxnhsa-[id number] Reductase Allergy All blood Verified 08/03/23 13:47 Inhibitor cells low [Qvtgkme-[id number]-Jwt Reductase Inhibitor] amoxicillin [From Augmentin] AdvReac Severe syncope Verified 08/03/23 13:47 clavulanic acid AdvReac Severe syncope Verified 08/03/23 13:47 [From Augmentin] carvedilol [From Coreg] AdvReac Intermediate Very Verified 08/03/23 13:47 fatigued on smallest dose clopidogrel [From Plavix] AdvReac Intermediate Severe Verified 08/03/23 13:47 diarrhea doxycycline AdvReac GI Verified 08/03/23 13:47 symptoms, emesis Sulfa (Sulfonamide AdvReac Nausea/Vom/ Verified 08/03/23 13:47 Antibiotics) Diarrhea Family History Father CAD (coronary artery disease) Myocardial infarction Mother CVA (cerebral vascular accident) Brother Aneurysm Brother Heart disease Myocardial infarction Sister Afib Parkinson's disease CVA (cerebral vascular accident) Surgical History History of appendectomy History of dilatation and curettage History of left heart catheterization (LHC) (~01/24/21) History of total adrenalectomy Presence of coronary angioplasty implant and graft (~03/08/19) S/P coronary artery stent placement (03/08/19) Social History Smoking Status: Never smoker Electronic Cigarette Use: not used second hand exposure: No alcohol intake: never substance use type: does not use caffeine: Yes Type: coffee Number of servings: 1 what type of physical activity do you participate in: other details: [employer] frequency: 3-4 times per week duration: 45-60 minutes/day seatbelt use: always do you feel safe at home: Yes ROS <BEL Schulte - Last Filed: 08/03/23 15:41> ROS ED ROS Narrative Constitutional: Negative for fever, chills, weight loss, weakness Eyes: Negative for vision loss, vision change, double vision ENT: Negative for any sore throat, ear pain, congestion Cardiovascular: Negative for any chest pain, tightness, palpitations Respiratory: Negative for any cough, sputum production, hemoptysis, dyspnea, dyspnea on exertion, orthopnea Gastrointestinal: Negative for any abdominal pain, nausea, vomiting, diarrhea, constipation, blood in stool, blood in vomit : Negative for any urinary frequency, dysuria, retention, blood in urine Muscle skeletal: Negative for any myalgias, arthralgias, neck pain. Positive right hip pain that radiates to her lower back Neurological: Negative for any headache, syncope, numbness or tingling, dizziness Skin: Negative for any rashes, lumps, itching, abrasions, lacerations Psychiatric: Negative for any depression, anxiety, stress, suicidal ideation, homicidal ideation Hematologic: Negative for any easy bruising, excessive bruising, easy bleeding Allergies: Negative for any eczema, hives, rash EXAM <BEL Schulte - Last Filed: 08/03/23 15:41> Physical Exam Narrative Exam Narrative: Vital signs reviewed. HEET: Head normocephalic atraumatic, TMs clear bilaterally. Posterior pharynx is clear, moist mucous membranes. Nares clear bilaterally. Neck: Supple with no lymphadenopathy or tenderness. No signs of meningismus. Cardiac: Regular rate and rhythm no murmurs gallops or rubs, equal peripheral pulses bilaterally. Respiratory: Lungs clear to auscultation bilaterally. No chest tenderness. Abdomen: Soft, nontender, nondistended. No abdominal bruit or pulsatile masses. No hepatosplenomegaly Extremities: Patient has pain to palpation to the lateral right hip, any flexion or extension causes discomfort to the right hip that raise to her right groin. Weightbearing is also painful. Patient has +2 pedal pulses, able to dorsiflex, plantarflex without difficulty. Neuro: Cranial nerves II through XII intact, no focal neurological deficits. Skin: Clean dry and intact with no rash, purpura, petechiae, vesicles or pustules. Backs/flank: No CVA tenderness, no midline spinal tenderness, no deformity. Psych: Normal mood and affect. No SI, HI or acute psychosis. Const Vital Signs: 08/03/23 12:04 08/03/23 14:53 Temperature 97 F L Temperature Source Temporal Pulse Rate 86 78 Respiratory Rate 16 18 Blood Pressure 146/74 H Blood Pressure Mean 98 Pulse Ox 99 97 Oxygen Delivery Method Room Air <Dr. Jc Chung DO - Last Filed: 08/03/23 14:35> Physical Exam Const Vital Signs: 08/03/23 12:04 08/03/23 14:53 Temperature 97 F L Temperature Source Temporal Pulse Rate 86 78 Respiratory Rate 16 18 Blood Pressure 146/74 H Blood Pressure Mean 98 Pulse Ox 99 97 Oxygen Delivery Method Room Air MDM <BEL Schulte - Last Filed: 08/03/23 15:41> MDM Radiography Diagnostic Testing: Clinical Impression(s) from Imaging Studies Hip/Pelvis X-Ray 08/03/23 12:27 IMPRESSION: 1. 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 Underlying avascular necrosis is possible. 2. Questionable early sclerosis of the left femoral head. Electronically Signed: Bill Stevenson MD at 13:13 EST , Treatment and Re-Evaluation :: Patient appears to be in mild distress secondary to right hip pain. Presenting to the emergency department with chronic right hip, right back pain which she sees pain management. She does need a hip replacement however she is waiting to see her orthopedic Dr. Miller. Differential diagnosis includes acute on chronic right hip pain, stress fracture, hip fracture. There is low suspicion for any fracture secondary to there being no trauma. Patient will receive x-rays of the right hip, x-rays in January 2023 showed significant severe arthritis. Patient will be given IM Toradol, IM morphine with ODT Zofran. This is for pain control. Patient will receive repeat x-rays will be interpreted by the ER physician. All radiologic examinations were read, reviewed by the emergency department attending. From these reads, a plan of care will be put in place. X-ray of the right hip shows severe degenerative changes, this is worse than the x-ray that was in January. Concerning for avascular necrosis. Patient was given IM Toradol, she refused IM morphine. Patient said Toradol did help. I did speak with orthopedics, I did offer the patient admission she refused. Patient will need to follow-up with orthopedics this upcoming week. Did speak with orthopedics they will see her this week for further follow-up. At this time, she was given [place] for home, she instructed to use the [place] as directed. She will continue to use her assistive device. She was given strict return precaution return for any worsening symptoms. Patient stable for discharge <Dr. Jc Chung DO - Last Filed: 08/03/23 14:35> [facility] Narrative Medical decision making narrative: I have personally performed a face to face assessment of the patient and have reviewed the ROSALIO Note. I performed a substantive portion of the visit including all aspects of the following. My sheehan findings include: History is [patient presents with right hip and right leg pain that she has had for months. Patient states that she was seen by back specialist Dr. Madison in May of this year and was told she has spinal stenosis. Patient also seen by her primary care physician and pain management. She saw pain management earlier this week and she is on tramadol but not seeming to help her pain especially over the last couple of days. She feels like the pains in her right hip and buttock and radiates down her leg. She denies weakness to the extremity. She denies change in bowel or bladder function. She had a small bowel movement this morning. Patient denies any falls or injuries.] Exam is [HEENT-PERRLA, EOMI. Cranial nerves II through XII grossly intact. TMs clear. Mucous membranes moist. No adenopathy. Cardiovascular-regular rate and rhythm without murmur or ectopy Lungs-clear to auscultation, chest wall stable without crepitus or subcu emphysema Abdomen-normoactive bowel sounds, soft, nontender, no rebound or rigidity, no peritoneal signs. Back exam-patient does have some tenderness palpation over right lumbar paraspinal musculature and lumbar spine. Right leg-patient has positive straight leg raise at about 30 degrees while supine. Deep tendon reflexes plus 1 out of 4 bilaterally at the patella and Achilles. Patient has normal L5 extension. Patient has normal sensation to light touch. Neurovascularly intact Extremities-intact ?4, normal range of motion, normal pulses, atraumatic] Medical Decison Making [x-rays of the right hip obtained showed worsening degenerative changes and concern for avascular necrosis of the right hip. We offered the patient morphine for pain to help manage her pain which she refused. Offered her admission for pain control and evaluation by Ortho which she refused. Patient states that she has an appointment in September to follow-up with Dr. Miller however we recommend that she follow-up before that. We discussed case with Dr. Danyel Vargas who is covering for Dr. Miller. Patient was able to ambulate in the department. She will be given a prescription for [place] and advised to follow-up with orthopedics.] Other additions or changes: [None] Radiography Diagnostic Testing: Clinical Impression(s) from Imaging Studies Hip/Pelvis X-Ray 08/03/23 12:27 IMPRESSION: 1. 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 Underlying avascular necrosis is possible. 2. Questionable early sclerosis of the left femoral head. Electronically Signed: Bill Stevenson MD at 13:13 EST , Discharge Plan Triage Chief Complaint: Lower Extremity Injury ED Midlevel Provider: Jakub Goff ED Provider: Jc Chung Dx/Rx/DC Orders Clinical Impression: Acute pain of right hip Instructions: OA Hip Prescriptions: New hydrocodone-acetaminophen 5-325 mg tablet 1 tab PO Q4H PRN PRN (Reason: Pain) 3 Days Qty: 12 0RF No Action colesevelam [WelChol] 625 mg tablet 1,250 mg PO DAILY coenzyme Q10 100 mg capsule 100 mg PO Q OTHER DAY calcium carbonate 500 mg calcium (1,250 mg) tablet 500 mg PO DAILY vitamin B complex [B Complex-Vitamin B12] Tablet 1 tab PO DAILY artifi.tears(hypromellose)(PF) 1.7 % drops with applicator 2 drp ophthalmic (eye) .AM albuterol sulfate 90 mcg/actuation HFA aerosol inhaler 1 - 2 puff inhalation Q6H PRN (Reason: shortness of breath or wheezing) Qty: 8.5 1RF Patient Comments: breathing losartan 25 mg tablet 25 mg PO DAILY hydroxychloroquine 200 mg tablet 200 mg PO DAILY Patient Comments: TAKE 1 TABLET DAILY Standard process PO levothyroxine 25 MCG tablet 25 mcg PO MOTUWETHFR Patient Comments: thyroid cholecalciferol (vitamin D3) 25 mcg (1,000 unit) tablet 1,000 unit PO DAILY Patient Comments: supplement levothyroxine 50 mcg Capsule 50 mcg PO SUSA tramadol 50 mg tablet 25 - 50 mg PO TID PRN (Reason: Pain) Patient Comments: TAKE 1/2 TO 1 TABLET BY MOUTH 3 TIMES A DAY NEEDED FOR PAIN duloxetine 20 mg capsule,delayed release(DR/EC) 20 mg PO QHS Patient Comments: TAKE 1 CAPSULE BY MOUTH EVERYDAY AT BEDTIME aspirin [Adult Low Dose Aspirin] 81 mg tablet,delayed release (DR/EC) 81 mg PO DAILY furosemide 40 mg tablet 20 mg PO DAILY Qty: 90 3RF Primary Care Provider: Dori Boyd Referrals: Dori Boyd DO [Primary Care Provider] - Hudson Miller MD [Med Staff - Active Staff] - 3-5 Days Activity Restrictions/Additional Instructions: You need to follow-up with Dr. Miller this week. Take the [place] as needed. You may cut them in half at first if you would like Disposition Disposition: Home, Self Care Discharge Date/Time: 08/03/23 14:54
--- NOTE | 2023-08-03 12:27 | RAD_ITS ---
INDICATION: pain EXAMINATION/TECHNIQUE: X-RAY - XR Hip Unilateral with Pelvis when performed; 2-3 Views COMPARISON: Prior study dated: 02/22/2023. FINDINGS: PELVIC BONES: No displaced fracture, destructive or sclerotic lesions. Note that overlapping bowel shadows may however obscure fine detail. Sacroiliac joints are unremarkable. Degenerative changes of the lower lumbar spine and scoliosis unchanged. HIPS: Severe narrowing of the right hip joint with deformity of the femoral head increased since the previous exam. Subchondral cystic changes of the acetabular roof. Moderate narrowing of the left hip joint. No displaced fracture seen in this frontal view. SOFT TISSUES: No soft tissue swelling or gas. RAD/HIP, UNI W/ Pelvis 2-3 Views IMPRESSION: 1. 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 Underlying avascular necrosis is possible. 2. Questionable early sclerosis of the left femoral head. Electronically Signed: Bill Stevenson MD at 13:13 EST ,
[2023-08-03] MEDS: Ondansetron ODT 4 MG Tablet PO (12:30)
[2023-08-03] MEDS: Ketorolac 15 MG/ML Vial IM (12:30)
[2023-08-03 14:53] VITALS: PULSE 78; RESP 18; O2SAT 97
== END 2023-08-03 14:54 | disposition home or self-care (01) ==
PROVIDERS: Emergency Provider Emergency Medicine; PCP Internal Medicine; Visit Provider Emergency Medicine
DX: M25.551 Pain in right hip (principal); I13.0 Hypertensive heart and chronic kidney disease with heart failure and stage 1 through stage 4 chronic kidney disease, or unspecified chronic kidney disease; I50.9 Heart failure, unspecified; N18.31 Chronic kidney disease, stage 3a; M16.11 Unilateral primary osteoarthritis, right hip; M54.9 Dorsalgia, unspecified; G89.29 Other chronic pain; E78.00 Pure hypercholesterolemia, unspecified; I25.10 Atherosclerotic heart disease of native coronary artery without angina pectoris; K21.9 Gastro-esophageal reflux disease without esophagitis; Z79.82 Long term (current) use of aspirin; Z79.890 Hormone replacement therapy; Z79.899 Other long term (current) drug therapy; Z95.5 Presence of coronary angioplasty implant and graft
CPT/HCPCS: 73502; 96372; 99282

== ENCOUNTER 2023-08-14 07:35 | Observation (INO) | payer MEDICARE, SELFPAY ==
[2019-02-27 14:50] VITALS: BMI 22.1
[2023-08-14 07:37] VITALS: BP 168/78; PULSE 78; RESP 14; TEMP 36.4; O2SAT 98; BMI 20.2
--- NOTE | 2023-08-14 07:53 | EKG12_ITS ---
Test Reason : RIB PAIN Blood Pressure : / mmHG Vent. Rate : 082 BPM Atrial Rate : 082 BPM P-R Int : 160 ms QRS Dur : 120 ms QT Int : 400 ms P-R-T Axes : 060 -26 033 degrees QTc Int : 467 ms Normal sinus rhythm Right bundle branch block Abnormal ECG Confirmed by JACKIE MARCANO, PARISA ([id number]), food expeditor VIRAL SIM ([id number]) on 08/19/2023 1:46:03 P M Referred By: STEPHON Confirmed By:MANDO MEJIA MD
--- NOTE | 2023-08-14 07:55 | ED.VIS.CHEST ---
HPI History of Present Illness Chief Complaint: Chest Other Informant: patient and spouse/S.O. Narrative Narrative: Patient presents for left-sided rib/chest pain. She states she had an accidental fall because her right hip, which has chronic arthritis in it and is a daily pain issue, caused her to fall as she was trying to mobilize to the toilet, she hit the floor injuring her left arm and her left rib cage, she states this was about 8 or 9 days ago. She states she thinks the whole area was sore but she did not hit her head or injure anything else and so she has been self treating at home with supportive care and Tylenol, which she took this morning. The pain has been noticeably worse since yesterday. She denies any dyspnea. Hurts worse to move and hurts worse to take a deep breath. Her left arm has been doing better, she has a scab from a minor injury she received there from this fall, and she states it still hurts up into her shoulder since the fall. She denies any other injury. She denies abdominal pain, nausea, vomiting, bright red blood per rectum, or headache. [facility] Medical History Atherosclerosis of [place] coronary artery of [place] heart without angina pectoris Cataract Chest pain CHF (congestive heart failure) Chronic kidney disease (CKD) stage G3a/A1, moderately decreased glomerular filtration rate (GFR) between 45-59 mL/min/1.73 square meter and albuminuria creatinine ratio less than 30 mg/g Contact with and (suspected) exposure to other viral communicable diseases COVID-19 (~12/2021) Diastolic dysfunction Dyspnea Essential (primary) hypertension GERD (gastroesophageal reflux disease) History of pneumonia Hx of congestive heart failure Lupus Non-rheumatic tricuspid valve insufficiency Nonrheumatic aortic valve insufficiency Nonrheumatic mitral valve insufficiency Nonrheumatic mitral valve prolapse Old myocardial infarction Presence of stent in coronary artery (~03/08/19) Pure hypercholesterolemia Rheumatoid arthritis Troponin I above reference range URI (upper respiratory infection) Home Medications levothyroxine 25 mcg tablet 25 mcg PO MOTUWETHFR thyroid 12/13/15 [History Last Taken 02/23/23] colesevelam 625 mg tablet (WelChol) 1,250 mg PO DAILY diabetes 12/15/19 [History Last Taken 02/24/23] cholecalciferol (vitamin D3) 25 mcg (1,000 unit) tablet 1,000 unit PO DAILY supplement 08/24/20 [History Last Taken 02/25/23] coenzyme Q10 100 mg capsule 100 mg PO Q OTHER DAY supplement 01/09/21 [History Last Taken 02/25/23] calcium carbonate 500 mg calcium (1,250 mg) tablet 500 mg PO DAILY supplement 06/15/22 [History Last Taken 02/25/23] albuterol sulfate 90 mcg/actuation aerosol inhaler 1 - 2 puff inhalation Q6H PRN shortness of breath or wheezing #8.5 grams 08/09/22 [Rx Last Taken Unknown] artifi.tears(hypromellose)(PF) 1.7 % eye drops with applicator 2 drp ophthalmic (eye) .AM eye health 08/09/22 [History Last Taken 02/25/23] levothyroxine 50 mcg capsule 50 mcg PO SUSA thyroid 02/20/23 [History Last Taken 02/25/23] duloxetine 20 mg capsule,delayed release 20 mg PO QHS MOOD 02/25/23 [History Last Taken 02/25/23] tramadol 50 mg tablet 25 - 50 mg PO TID PRN Pain 02/25/23 [History Last Taken 02/25/23] aspirin 81 mg tablet,delayed release (Adult Low Dose Aspirin) 81 mg PO DAILY heart health 03/04/23 [History Last Taken Unknown] furosemide 40 mg tablet 20 mg (1/2 x 40 mg) PO DAILY Please don't refill until pt calls: she has GOBS. #90 tabs 06/28/23 [Rx Last Taken Unknown] Standard process PO 07/22/23 [History Last Taken Unknown] hydroxychloroquine 200 mg tablet 200 mg PO DAILY 07/22/23 [History Last Taken Unknown] losartan 25 mg tablet 25 mg PO DAILY 07/22/23 [History Last Taken Unknown] vitamin B complex (B Complex-Vitamin B12 tablet) 1 tab PO DAILY vitamin 07/22/23 [History Last Taken Unknown] hydrocodone-acetaminophen 5-325mg 5mg-325mg 1 tab PO Q4H PRN PRN Pain 3 days #12 TABLETS 08/03/23 [Rx Last Taken Unknown] Allergy/AdvReac Type Severity Reaction Status Date / Time nitrofurantoin Allergy Intermediate thrush Verified 08/14/23 07:36 [From Macrobid] latex Allergy Mild Rash Verified 08/14/23 07:36 Penicillins [PCN] Allergy not sure Verified 08/14/23 07:36 Nldicre-QXG-AxH Reductase Allergy All blood Verified 08/14/23 07:36 Inhibitor cells low [Fmkoepr-Vij-Xwb Reductase Inhibitor] amoxicillin [From Augmentin] AdvReac Severe syncope Verified 08/14/23 07:36 clavulanic acid AdvReac Severe syncope Verified 08/14/23 07:36 [From Augmentin] carvedilol [From Coreg] AdvReac Intermediate Very Verified 08/14/23 07:36 fatigued on smallest dose clopidogrel [From Plavix] AdvReac Intermediate Severe Verified 08/14/23 07:36 diarrhea doxycycline AdvReac GI Verified 08/14/23 07:36 symptoms, emesis Sulfa (Sulfonamide AdvReac Nausea/Vom/ Verified 08/14/23 07:36 Antibiotics) Diarrhea Family History (Reviewed 07/22/23 @ 15:51 by Galen Morales BUILDING [employer]URE W[employer]ER, BUILDING [employer]URE W[employer]ER-C) Father CAD (coronary artery disease) Myocardial infarction Mother CVA (cerebral vascular accident) Brother Aneurysm Brother Heart disease Myocardial infarction Sister Afib Parkinson's disease CVA (cerebral vascular accident) Surgical History (Reviewed 07/22/23 @ 15:51 by Galen Morales [employer]ILDING [employer] W[employer]ER, BUILDING [employer] W[employer]ER-C) History of appendectomy History of dilatation and curettage History of left heart catheterization (LHC) (~01/24/21) History of total adrenalectomy Presence of coronary angioplasty implant and graft (~03/08/19) S/P coronary artery stent placement (03/08/19) Social History Smoking Status: Never smoker Electronic Cigarette Use: not used second hand exposure: No alcohol intake: never substance use type: does not use caffeine: Yes Type: coffee Number of servings: 1 what type of physical activity do you participate in: other details: [employer] frequency: 3-4 times per week duration: 45-60 minutes/day seatbelt use: always do you feel safe at home: Yes ROS ROS ED Constitutional Constitutional ED: Denies chills or fever(s) Eyes Eyes: Denies change in vision or diplopia ENT ENT ED: Denies rhinorrhea or sore throat Cardiovascular Cardiovascular: Reports as per HPI and chest pain; Denies palpitations Respiratory/Chest Respiratory/Chest: Denies cough or dyspnea Gastrointestinal Gastrointestinal: Denies abdominal pain, diarrhea, nausea or vomiting Genitourinary Genitourinary ED: Denies dysuria or hematuria Musculoskeletal Musculoskeletal: Reports extremity pain; Denies back pain or neck pain Integumentary Denies abscess or rash Neurologic Neurologic: Denies headache(s), paresthesias or weakness Psychiatric Psychiatric: Denies anxiety or suicidal thoughts Hematologic/Lymphatic Hematologic/Lymphatic: Reports easy bleeding and easy bruising EXAM Physical Exam Const Vital Signs: 08/14/23 07:37 Temperature 97.6 F L Temperature Source Temporal Pulse Rate 78 Respiratory Rate 14 Blood Pressure 168/78 H Blood Pressure Mean 108 Pulse Ox 98 Oxygen Delivery Method Room Air Positive well nourished and well developed General Appearance ED: well developed and NAD HEENT Reports moist mucous membranes normocephalic and atraumatic Eyes PERRL and EOMs intact bilaterally Neck full ROM and supple Chest Wall inspection of chest normal Chest Narrative: Patient is tender throughout much of the left lateral and anterior mid to lower rib cage. It is a broad area. There is no crepitance or subcutaneous emphysema or purpura. Tenderness goes all the way back to the posterior axillary line. She has no back tenderness or limited range of motion. With deep inspiration there is no splinting. Increased pain in the left chest wall when the patient moves around. Resp normal respiratory effort and clear to auscultation bilaterally Resp Narrative: Conversive in full sentences. Cardio regular rate, regular rhythm and no murmurs GI non-tender and non-distended Auscultation: normoactive bowel sounds Palpation: soft Back/Spine no CVA tenderness General Back: other FROM Extremity normal to inspection Extremity Narrative: Pain in the anterior left shoulder with range of motion, which she is able to do, there is no bony tenderness including the proximal humerus and acromioclavicular joint and the entire clavicle. General Extremety ED: Negative for edema, pulses abnormal or tenderness General Extremity: Negative for edema or pulses abnormal Neuro oriented x3, CN's II-XII intact bilaterally and no sensory deficits noted Sensorium / Orientation: awake and alert Motor Exam: strength 5/5 throughout Psych mental status grossly normal Skin no rashes or lesions noted and no wounds Skin Narrative: Healing contusion with a scab no tenderness or signs of infection, anterolateral left upper arm, closer to the elbow MDM MDM MDM Narrative Medical decision making narrative: Patient seen just prior to shift change. I did obtain an EKG, just given the delay in worsening of the symptoms, it is very benign and reassuring, I discussed this with the patient and her . At this time a left rib series with PA chest and a left shoulder series are obtained in order to evaluate her injuries. She is amenable to taking a tramadol for her pain which is ordered for her, she does not want anything stronger. She states she believes she is not in so much pain that she will not be able to be discharged home after this. Her is there to help her. At this time, checked out to oncoming ED physician for evaluation of these exams and disposition. Rhythm Strip Rhythm Strip: Sinus Rhythm Rate: 80 Ectopy: None EKG Initial EKG: Attestation: I personally reviewed and interpreted this EKG as follows: Interpretation: Sinus Rhythm, No Acute Injury Pattern and RBBB Prior EKG tracings: available for review Prior: Unchanged Discharge Plan Triage Chief Complaint: Chest Other ED Provider: Juan Thomas Dx/Rx/DC Orders Prescriptions: No Action colesevelam [WelChol] 625 mg tablet 1,250 mg PO DAILY coenzyme Q10 100 mg capsule 100 mg PO Q OTHER DAY calcium carbonate 500 mg calcium (1,250 mg) tablet 500 mg PO DAILY vitamin B complex [B Complex-Vitamin B12] Tablet 1 tab PO DAILY artifi.tears(hypromellose)(PF) 1.7 % drops with applicator 2 drp ophthalmic (eye) .AM albuterol sulfate 90 mcg/actuation HFA aerosol inhaler 1 - 2 puff inhalation Q6H PRN (Reason: shortness of breath or wheezing) Qty: 8.5 1RF Patient Comments: breathing losartan 25 mg tablet 25 mg PO DAILY hydroxychloroquine 200 mg tablet 200 mg PO DAILY Patient Comments: TAKE 1 TABLET DAILY Standard process PO levothyroxine 25 MCG tablet 25 mcg PO MOTUWETHFR Patient Comments: thyroid cholecalciferol (vitamin D3) 25 mcg (1,000 unit) tablet 1,000 unit PO DAILY Patient Comments: supplement levothyroxine 50 mcg Capsule 50 mcg PO SUSA tramadol 50 mg tablet 25 - 50 mg PO TID PRN (Reason: Pain) Patient Comments: TAKE 1/2 TO 1 TABLET BY MOUTH 3 TIMES A DAY NEEDED FOR PAIN duloxetine 20 mg capsule,delayed release(DR/EC) 20 mg PO QHS Patient Comments: TAKE 1 CAPSULE BY MOUTH EVERYDAY AT BEDTIME hydrocodone-acetaminophen 5-325 mg tablet 1 tab PO Q4H PRN PRN (Reason: Pain) 3 Days Qty: 12 0RF aspirin [Adult Low Dose Aspirin] 81 mg tablet,delayed release (DR/EC) 81 mg PO DAILY furosemide 40 mg tablet 20 mg PO DAILY Qty: 90 3RF Primary Care Provider: Dori Boyd Referrals: Dori Boyd DO [Primary Care Provider] -
[2023-08-14] MEDS: traMADol 50 MG Tablet PO ×2 (08:15→21:27)
--- NOTE | 2023-08-14 08:15 | RAD_ITS ---
STUDY: X-RAY - UNILATERAL RIBS ( LEFT ) WITH CHEST REASON FOR EXAM: Female, 88 years old. Left-sided rib pain following a recent fall. TECHNIQUE - RIBS: 2 view(s) of the ribs. TECHNIQUE - CHEST: Single PA view of the chest. COMPARISON: Comparison is made with prior study dated February 25, 2023. FINDINGS - RIBS: Normal visualized ribs without a demonstrated fracture. FINDINGS - CHEST: EKG electrodes are seen. Hyperinflation. The lungs are clear and expanded. There is no demonstrated pleural abnormality. Normal size heart. Normal mediastinum and colette. There is prominence of the pulmonary hilar arteries without peripheral pulmonary vascular congestion, suggesting pulmonary hypertension. There is atherosclerotic calcification of the aortic arch with tortuosity. There are diffuse degenerative changes of the visualized thoracic spine. Normal visualized ribs, clavicles, and shoulders. There is no demonstrated abnormality of the visualized soft tissue structures of the upper abdomen. RAD/Ribs Uni Min 3V w/PA Chest IMPRESSION: RIBS: Normal x-ray examination of the ribs. CHEST: Hyperinflation. Prominence of the central pulmonary arteries. Electronically Signed: Michael Persaud MD at 8:53 EST ,
--- NOTE | 2023-08-14 08:15 | RAD_ITS ---
STUDY: X-RAY - LEFT SHOULDER REASON FOR EXAM: Female, 88 years old. Pain following injury. TECHNIQUE: 2 view(s) of the shoulder. COMPARISON: None. FINDINGS: Anterior subluxation of the glenohumeral joint. Normal acromioclavicular joint. Normal acromion. Normal humeral head and visualized proximal humerus. The soft tissue structures are unremarkable. Normal visualized pulmonary apex. RAD/Shoulder min 2 Views IMPRESSION: Anterior subluxation of the left glenohumeral joint. Electronically Signed: Michael Persaud MD at 8:55 EST ,
[2023-08-14 10:09] LABS: Absolute Lymphocyte Count 0.62 X10^3/uL (0.83-4.51); Absolute Neutrophil Count 2.9 X10^3/uL (2.0-7.7); Basophil# 0.02 X10^3/uL; Basophil% 0.5 % (0-1); Eosinophil# 0.06 X10^3/uL; Eosinophils% 1.4 % (0-5); Hematocrit 33.2 % (37-47); Hemoglobin 11.1 g/dL (12.0-15.0); Lymphocyte # 0.62 X10^3/ul (0.83-4.51); Lymphocyte % 14.3 % (19-41); Mean Corp Hgb Conc 33.4 g/dL (32-36); Mean Corpuscular Hgb 30.3 pg (27.0-32.0); Mean Corpuscular Volume 90.7 fL (81-99); Mean Platelet Vol. 9.3 fl (6.2-12.0); Monocyte# 0.77 X10^3/uL; Monocyte% 17.7 % (0-10); NRBC Flagged by Analyzer 0 % (0-5); Neutrophil # 2.87 X10^3/uL (2.7-7.7); Neutrophil % 66.1 % (47-70); Platelet Count 219 K/mm3 (150-450); RBC Distribution Width CV 12.3 % (11.6-14.6); RBC Distribution Width SD 40.7 fl (35.1-43.9); Red Blood Count 3.66 M/mm3 (4.2-5.4); White Blood Count 4.3 K/mm3 (4.4-11.0)
[2023-08-14 10:25] VITALS: BP 135/88; PULSE 75; RESP 17; O2SAT 99
[2023-08-14 11:17] LABS: Anion Gap 7 (5-15); BUN 27 mg/dL (7-18); BUN/Creat Ratio 22.3 RATIO (10-20); Calcium,Total 9.2 mg/dL (8.5-10.1); Chloride 96 mmol/L (98-107); Creatinine, Serum 1.21 mg/dL (0.55-1.02); EST Glomerular Filtration Rate 45 mL/min (>60); Est Glom Filt Rate - Afr Amer 54 mL/min (>60); Estimated Creatinine Clearance 24.72 ml/min; Glucose 81 mg/dL (74-106); Potassium 4.1 mmol/L (3.5-5.1); Sodium Level 131 mmol/L (136-145); Troponin-I HS (w/2H Reflex) 489 pg/mL (3.0-54.0)
[2023-08-14] MEDS: Aspirin 325 MG Tablet PO (11:32)
[2023-08-14 12:01] LABS: Reflex Troponin-HS? (from REC) Y
[2023-08-14 12:25] LABS: Troponin-I HS 452 pg/mL (3.0-54.0)
--- NOTE | 2023-08-14 12:33 | PCM.HP.STD ---
HPI - General General Date of Admission: 08/14/23 Date of Service: 08/14/23 Chief Complaint: Left-sided chest pain, fall with weakness HPI Narrative HUBERT DAVIS, is a 88 F who presented to [facility] ED on 08/14/2023 with recent fall, worsening weakness and left-sided chest pain. Patient seen at bedside in the ED, present. Patient was resting fairly comfortably in bed, conversing normally, in no acute distress. Patient reported mild left-sided chest and rib pain at rest that worsens fairly significantly with movement. She denies any shortness of breath. Denies any other acute pain or discomfort currently. Patient lives at home with her , has been fairly functional at baseline, does most things around the house for self. 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 States she had a fall at home about 8 to 9 days prior to admission, fell onto her left side and hit the floor with her left arm and left rib cage. Did not hit her head. Was treating at home with as needed pain medications, however she noticed that the pain seemed to significantly worsen on the day prior to admission. She noticed that it hurt significantly to move and was worse with a deep breath. She denied any radiation of the pain. Patient notably does have a history of coronary artery disease, follows with outpatient cardiology. Her last office appointment with cardiology was about 3 weeks ago. Noted that she had a heart cath done in January of this year that showed that her previous stents were patent and she had no other significant coronary artery disease. She has been taking her home medications as prescribed. No other acute concerns at this time. [facility] Medical History (Updated 08/14/23 @ 19:[address] Ganesh Brady, ) Anxiety Atherosclerosis of [place] coronary artery of [place] heart without angina pectoris Cataract Chest pain CHF (congestive heart failure) Chronic kidney disease (CKD) stage G3a/A1, moderately decreased glomerular filtration rate (GFR) between 45-59 mL/min/1.73 square meter and albuminuria creatinine ratio less than 30 mg/g Chronic pain Contact with and (suspected) exposure to other viral communicable diseases COVID-19 (~12/2021) Diastolic dysfunction Dyspnea Essential (primary) hypertension GERD (gastroesophageal reflux disease) History of pneumonia Hx of congestive heart failure Hypertension Hypothyroidism Lupus Migraines Myocardial infarct Non-rheumatic tricuspid valve insufficiency Non-smoker Nonrheumatic aortic valve insufficiency Nonrheumatic mitral valve insufficiency Nonrheumatic mitral valve prolapse Old myocardial infarction Osteoporosis Presence of stent in coronary artery (~03/08/19) Pure hypercholesterolemia Rheumatoid arthritis Troponin I above reference range URI (upper respiratory infection) Home Medications levothyroxine 25 mcg tablet 25 mcg PO MOTUWETHFR thyroid 12/13/15 [History Last Taken 02/23/23] colesevelam 625 mg tablet (WelChol) 1,250 mg PO DAILY diabetes 12/15/19 [History Last Taken 02/24/23] cholecalciferol (vitamin D3) 25 mcg (1,000 unit) tablet 1,000 unit PO DAILY supplement 08/24/20 [History Last Taken 02/25/23] coenzyme Q10 100 mg capsule 100 mg PO Q OTHER DAY supplement 01/09/21 [History Last Taken 02/25/23] calcium carbonate 500 mg calcium (1,250 mg) tablet 500 mg PO DAILY supplement 06/15/22 [History Last Taken 02/25/23] albuterol sulfate 90 mcg/actuation aerosol inhaler 1 - 2 puff inhalation Q6H PRN shortness of breath or wheezing #8.5 grams 08/09/22 [Rx Last Taken Unknown] artifi.tears(hypromellose)(PF) 1.7 % eye drops with applicator 2 drp ophthalmic (eye) .AM eye health 08/09/22 [History Last Taken 02/25/23] levothyroxine 50 mcg capsule 50 mcg PO SUSA thyroid 02/20/23 [History Last Taken 02/25/23] tramadol 50 mg tablet 25 - 50 mg PO TID PRN Pain 02/25/23 [History Last Taken 02/25/23] aspirin 81 mg tablet,delayed release (Adult Low Dose Aspirin) 81 mg PO DAILY heart health 03/04/23 [History Last Taken Unknown] furosemide 40 mg tablet 20 mg (1/2 x 40 mg) PO DAILY Please don't refill until pt calls: she has GOBS. #90 tabs 06/28/23 [Rx Last Taken Unknown] hydroxychloroquine 200 mg tablet 200 mg PO DAILY 07/22/23 [History Last Taken Unknown] losartan 25 mg tablet 25 mg PO DAILY 07/22/23 [History Last Taken Unknown] vitamin B complex (B Complex-Vitamin B12 tablet) 1 tab PO DAILY vitamin 07/22/23 [History Last Taken Unknown] hydrocodone-acetaminophen 5-325mg 5mg-325mg 1 tab PO Q4H PRN PRN Pain 3 days #12 TABLETS 08/03/23 [Rx Last Taken Unknown] pimecrolimus 1 % topical cream 1 applic topical BID lupus of the skin 08/14/23 [History Last Taken Unknown] Allergy/AdvReac Type Severity Reaction Status Date / Time nitrofurantoin Allergy Intermediate thrush Verified 08/14/23 07:36 [From Macrobid] latex Allergy Mild Rash Verified 08/14/23 07:36 Penicillins [PCN] Allergy not sure Verified 08/14/23 07:36 Uxdbfjt-XMM-NnA Reductase Allergy All blood Verified 08/14/23 07:36 Inhibitor cells low [Pxhpdgn-Yjd-Cxv Reductase Inhibitor] amoxicillin [From Augmentin] AdvReac Severe syncope Verified 08/14/23 07:36 clavulanic acid AdvReac Severe syncope Verified 08/14/23 07:36 [From Augmentin] carvedilol [From Coreg] AdvReac Intermediate Very Verified 08/14/23 07:36 fatigued on smallest dose clopidogrel [From Plavix] AdvReac Intermediate Severe Verified 08/14/23 07:36 diarrhea doxycycline AdvReac GI Verified 08/14/23 07:36 symptoms, emesis Sulfa (Sulfonamide AdvReac Nausea/Vom/ Verified 08/14/23 07:36 Antibiotics) Diarrhea Family History Father CAD (coronary artery disease) Myocardial infarction Mother CVA (cerebral vascular accident) Brother Aneurysm Brother Heart disease Myocardial infarction Sister Afib Parkinson's disease CVA (cerebral vascular accident) Surgical History (Updated 08/14/23 @ 14:24 by Adali Delgadillo) History of appendectomy History of coronary artery stent placement History of dilatation and curettage History of left heart catheterization (LHC) (~01/24/21) History of total adrenalectomy Presence of coronary angioplasty implant and graft (~03/08/19) S/P coronary artery stent placement (03/08/19) Social History Smoking Status: Never smoker Electronic Cigarette Use: not used second hand exposure: No alcohol intake: never substance use type: does not use caffeine: Yes Type: coffee Number of servings: 1 what type of physical activity do you participate in: other details: [employer] frequency: 3-4 times per week duration: 45-60 minutes/day seatbelt use: always do you feel safe at home: Yes ROS Constitutional Constitutional: Reports fatigue and weakness; Denies change in weight, chills or fever(s) Eyes Eyes: Denies change in vision Cardiovascular Cardiovascular: Reports chest pain; Denies dyspnea on exertion, edema, lightheadedness or rapid heart rate Respiratory/Chest Respiratory/Chest: Denies cough, shortness of breath at rest, shortness of breath with exertion or wheezing Gastrointestinal Gastrointestinal: Denies abdominal pain, constipation, diarrhea, nausea or vomiting Genitourinary Genitourinary: Denies dysuria Musculoskeletal Musculoskeletal: Reports joint pain, joint stiffness and other Details: Left-sided rib pain ; Denies arthralgias Neurologic Neurologic: Denies dizziness Psychiatric Psychiatric: Denies anxiety Vital Signs Vital Signs Vital Signs: 08/14/23 07:37 08/14/23 07:55 08/14/23 10:25 Temperature 97.6 F L Temperature Source Temporal Pulse Rate 78 75 Respiratory Rate 14 17 Respiratory Pattern Normal Blood Pressure 168/78 H 135/88 H Blood Pressure Mean 108 103 Pulse Ox 98 99 Oxygen Delivery Method Room Air Room Air Weight Weight: 48.444 kg Body Mass Index (BMI) 20.2 Physical Exam Const alert, oriented x3 and no apparent distress Constitutional Narrative: Pleasant elderly female, thin appearing, laying comfortably in bed, conversing normally, no acute distress. General Appearance: cooperative and comfortable HEENT normocephalic, head/scalp atraumatic, hearing grossly normal bilaterally, nasal mucous membranes and turbinates normal and moist oral mucous membranes Eyes PERRL, EOMs intact bilaterally and conjunctivae normal Neck full ROM, no lymphadenopathy and supple Lymph Lymphatic: no lymphadenopathy noted Chest Chest Narrative: Mild to moderate tenderness to palpation in left upper rib area. Resp normal respiratory effort, normal air movement, no use of accessory muscles and clear to auscultation bilaterally Cardio regular rate, regular rhythm, no murmurs and peripheral pulses 2+ throughout GI normal to inspection, nondistended, normoactive bowel sounds, soft to palpation, non-tender and non-distended Back/Spine normal ROM Extremity normal to inspection, full ROM and no pedal edema Skin no rashes or lesions noted Neuro moves all extremities and no focal motor deficits Speech: speech normal Psych mental status grossly normal Results Lab / Micro Data 08/14/23 08:05 08/14/23 08:05 Labs: Laboratory Results - last 24 hr 08/14/23 08:05: WBC 4.3 L, RBC 3.66 L, Hgb 11.1 L, Hct 33.2 L, MCV 90.7, MCH 30.3, MCHC 33.4, RDW Std Deviation 40.7, RDW Coeff of Young 12.3, Plt Count 219, MPV 9.3, Immature Gran % (Auto) 0.000, Neut % (Auto) 66.1, Lymph % (Auto) 14.3 L, [place] % (Auto) 17.7 H, Eos % (Auto) 1.4, Baso % (Auto) 0.5, Absolute Neuts (auto) 2.9, Absolute Lymphs (auto) 0.62 L, Nucleated RBC % 0, Sodium 131 L, Potassium 4.1, Chloride 96 L, Carbon Dioxide 28.0, Anion Gap 7, BUN 27 H, Creatinine 1.21 H, Estim Creat Clear Calc 24.72, Est GFR (MDRD) Af Amer 54 L, Est GFR (MDRD) Non-Af 45 L, BUN/Creatinine Ratio 22.3 H, Glucose 81, Calcium 9.2, Troponin I High Sens 489 H* 08/14/23 11:35: Troponin I High Sens 452 H* Rhythm Strip Rhythm Strip: Sinus Rhythm Rate: 80 Ectopy: None Imagaing Radiology Impression Ribs w/Chest X-Ray 08/14/23 08:15 IMPRESSION: RIBS: Normal x-ray examination of the ribs. CHEST: Hyperinflation. Prominence of the central pulmonary arteries. Electronically Signed: Michael Persaud MD at 8:53 EST , Shoulder X-Ray 08/14/23 08:15 IMPRESSION: Anterior subluxation of the left glenohumeral joint. Electronically Signed: Michael Persaud MD at 8:55 EST , Assessment & Plan Assessment/Plan (1) NSTEMI (non-ST elevated myocardial infarction): (2) Weakness: PLAN: Plan Patient is an 88-year-old female who presented to [facility] ED on 08/14/2023 with recent fall, worsening weakness and left-sided chest pain. 1. NSTEMI, history of CAD s/p stenting Fairly low concern for cardiac etiology at this time. EKG normal on admit. Troponin elevated to 489, repeat 452 in ED; however his troponins are persistently elevated in the low to mid 400s. Echo on 08/14 showed EF 50 to 55%, no regional wall motion abnormalities, similar to previous echo in 12/2021 and EF 55% noted on LV gram during left heart cath in 01/2023. Patient follows outpatient with cardiology, last office appointment on 07/22. Has history of multiple stents placed, last stenting done in 2019; LHC in 01/2023 showed nonobstructive CAD with stents in LAD and diagonal patent, mild diffuse disease in LCx and RCA. Reports compliance with home medication regimen. ? Admit under observation status to PCU. Cardiology consulted. Will keep patient n.p.o. at midnight in case of possible need for stress testing versus heart cath. Continue home aspirin, Lasix, losartan. 2. Recent fall with debility Patient lives at home with her , has had fairly good functional status at baseline to this point, able to do most things around the house for self without issue. Patient had a mechanical fall at home about 8 to 9 days prior to admission, fell onto her left side and had left arm and left rib pain after the fall. Was treating supportively at home but seem to have worsening weakness over the past few days specifically. Chest x-ray with ribs on admit showed no rib fractures. Left shoulder x-ray was read by radiology as an anterior subluxation of the left glenohumeral joint; however on exam patient was moving her left shoulder without issue and did not appear to have subluxation on exam. ? PT/OT/case management consulted. Treat pain with home tramadol as needed, Tylenol as needed. Monitor closely. Can consider repeat left shoulder x-ray if patient has worsening left shoulder pain or PT/OT note left shoulder weakness on exam. 3. Chronic hyponatremia ? Sodium 131 on admit. Runs around 128-132 at baseline. Appears euvolemic on admit. Monitor. Chronic medical conditions: ? Hypothyroidism: Continue home Synthroid. ? Lupus with chronic pain: Continue home hydroxychloroquine, duloxetine, tramadol as needed. ? Anxiety/depression: Stable. Continue home duloxetine. DVT prophylaxis: Lovenox CODE STATUS: Full code, verified Expected disposition: Home, tomorrow Total clinical time spent by myself addressing the patient's medical issues, reviewing all the data, and collaborating with patient's care team: 55 minutes. Charges/Coding Visit Charges Inpatient E&M: 87344 Init Hosp L2
[2023-08-14 13:15] VITALS: BP 150/84; PULSE 82; RESP 16; TEMP 36.4; O2SAT 98
[2023-08-14 14:21] VITALS: BMI 19.6
--- NOTE | 2023-08-14 14:31 | ECHOD_ITS ---
Reason For Study: CHEST PAIN Procedure This was a 2D Doppler, Color Flow transthoracic echocardiogram. Myocardial strain analysis was performed in this exam to aid in the assessment of cardiac function. Exam performed portable in patient room. Left Ventricle Normal LV size. The estimated ejection fraction is 50-55 %. Diastolic function is indeterminate. No regional wall motion abnormalities noted. Right Ventricle Normal RV size. Normal systolic function. Atria The left atrium is mildly enlarged. Normal right atrium. No doppler evidence for ASD. Mitral Valve There is no mitral valve stenosis. Mild (1+) mitral valve insufficiency. Tricuspid Valve There is no tricuspid stenosis. Trivial tricuspid valve insufficiency. Pulmonary artery systolic pressure is 30 mmHg. Aortic Valve Trisinus/trileaflet aortic valve. There is no aortic stenosis. Mild (1+) aortic valve insufficiency. Pulmonic Valve There is no pulmonic valvular stenosis. No pulmonic valve insufficiency. Great Vessels Normal aortic root. Pericardium/Pleural No pericardial effusion. MMode/2D Measurements & Calculations LVIDd: 4.9 cm IVSd: 0.64 cm LVOT diam: 1.8 cm LVIDs: 4.0 cm LVPWd: 0.81 cm LVOT area: 2.6 cm2 RVDd: 2.8 cm FS: 17.6 % Ao root diam: 3.1 cm LAV(MOD-bp): 62.9 ml LVAd ap4: 26.2 cm2 LAV(MOD-bp) Indexed: 44.0 ml/m2 LVLd ap4: 7.0 cm LAV(MOD-sp2): 47.8 ml EDV(MOD-sp4): 79.6 ml LAV(MOD-sp4): 66.4 ml EDV(sp4-el): 83.9 ml LVAs ap4: 16.8 cm2 LVLs ap4: 5.7 cm ESV(MOD-sp4): 41.2 ml ESV(sp4-el): 42.1 ml EF(MOD-sp4): 48.3 % EF(sp4-el): 49.8 % LVAd ap2: 27.3 cm2 SV(MOD-sp4): 38.4 ml SV(MOD-sp2): 32.6 ml LVLd ap2: 6.8 cm EDV(MOD-sp2): 87.9 ml EDV(sp2-el): 92.8 ml LVAs ap2: 20.6 cm2 LVLs ap2: 6.5 cm ESV(MOD-sp2): 55.3 ml ESV(sp2-el): 55.4 ml EF(MOD-sp2): 37.1 % SV(sp4-el): 41.8 ml LA dimension(2D): 2.3 cm LA A4 area: 22.9 cm2 RA A4 area: 12.9 cm2 TAPSE: 1.9 cm Time Measurements MV dec time: 0.10 sec Doppler Measurements & Calculations MV E max bradford: 46.8 cm/sec Lat Peak E' Bradford: 6.3 cm/sec Med Peak E' Bradford: 5.8 cm/sec MV A max bradford: 52.2 cm/sec E/E' lat: 7.4 E/E' med: 8.1 MV E/A: 0.90 Ao V2 max: 135.7 cm/sec AI max bradford: 489.4 cm/sec MV dec slope: 458.4 cm/sec2 Ao max P.4 mmHg AI max P.0 mmHg Ao V2 mean: 92.3 cm/sec Ao mean P.9 mmHg AI dec slope: 439.9 cm/sec2 Ao V2 VTI: 27.1 cm AI P1/2t: 325.9 msec AV (velocity ratio): 0.63 TRELL(I,D): 1.6 cm2 TRELL(V,D): 1.8 cm2 LV V1 max: 93.6 cm/sec SV(LVOT): 44.5 ml PA V2 max: 93.0 cm/sec LV V1 max P.5 mmHg PA max PG (full): 0.24 mmHg LV V1 mean P.9 mmHg LV V1 mean: 64.8 cm/sec LV V1 VTI: 17.0 cm TR max bradford: 249.7 cm/sec TR max P.9 mmHg ECHO/Echo Complete Interpretation Summary The estimated ejection fraction is 50-55 %. Diastolic function is indeterminate. The left atrium is mildly enlarged. Mild (1+) mitral valve insufficiency. Mild (1+) aortic valve insufficiency. Ordering Physician: Ganesh Brady Referring Physician: Dori Boyd M.D. Performed By: Lora Mena RDCS
[2023-08-14 14:32] VITALS: BP 140/79; PULSE 85; RESP 18; TEMP 36.4; O2SAT 100
[2023-08-14 21:27] VITALS: O2SAT 95
[2023-08-14] MEDS: Acetaminophen 325 MG Tablet 650 MG PO (21:29)
[2023-08-14] MEDS: DULoxetine Hcl 20 MG Capsule PO (21:29)
[2023-08-14 21:33] VITALS: BP 146/73; PULSE 98; RESP 15; TEMP 36.7; O2SAT 95
[2023-08-15 03:34] VITALS: BP 148/73; PULSE 78; RESP 14; TEMP 36.6; O2SAT 97
--- NOTE | 2023-08-15 05:55 | EKG12_ITS ---
Test Reason : HEART CATH Blood Pressure : / mmHG Vent. Rate : 084 BPM Atrial Rate : 084 BPM P-R Int : 162 ms QRS Dur : 128 ms QT Int : 394 ms P-R-T Axes : 067 -40 019 degrees QTc Int : 465 ms Normal sinus rhythm Left axis deviation Right bundle branch block Abnormal ECG When compared with ECG of 14-AUG-2023 07:56, MANUAL COMPARISON REQUIRED, DATA IS UNCONFIRMED Confirmed by JACKIE MARCANO, PARISA ([id number]), science editor VIRAL SIM ([id number]) on 08/19/2023 12:48:22 PM Referred By: Confirmed By:MANDO MEJIA MD
[2023-08-15] MEDS: Levothyroxine 25 MCG TABLET PO (06:16)
[2023-08-15] MEDS: Aspirin E.C. 81 MG Tablet PO (06:16)
[2023-08-15] MEDS: Losartan Potassium 25 MG Tablet PO (06:16)
[2023-08-15 06:24] VITALS: BP 140/77; PULSE 85; RESP 15; TEMP 36.6; O2SAT 97
[2023-08-15 06:36] LABS: Hematocrit 32.7 % (37-47); Hemoglobin 10.7 g/dL (12.0-15.0); Mean Corp Hgb Conc 32.7 g/dL (32-36); Mean Corpuscular Hgb 29.9 pg (27.0-32.0); Mean Corpuscular Volume 91.3 fL (81-99); Mean Platelet Vol. 9.2 fl (6.2-12.0); Platelet Count 214 K/mm3 (150-450); RBC Distribution Width CV 12.2 % (11.6-14.6); RBC Distribution Width SD 41.3 fl (35.1-43.9); Red Blood Count 3.58 M/mm3 (4.2-5.4); White Blood Count 3.1 K/mm3 (4.4-11.0)
[2023-08-15 07:25] LABS: Anion Gap 8 (5-15); BUN 29 mg/dL (7-18); BUN/Creat Ratio 24.4 RATIO (10-20); Calcium,Total 8.7 mg/dL (8.5-10.1); Chloride 101 mmol/L (98-107); Creatinine, Serum 1.19 mg/dL (0.55-1.02); EST Glomerular Filtration Rate 46 mL/min (>60); Est Glom Filt Rate - Afr Amer 55 mL/min (>60); Estimated Creatinine Clearance 24.76 ml/min; Glucose 89 mg/dL (74-106); Potassium 4.6 mmol/L (3.5-5.1); Sodium Level 133 mmol/L (136-145)
[2023-08-15 07:39] VITALS: O2SAT 97
[2023-08-15 11:53] VITALS: BP 139/72; PULSE 92; RESP 16; TEMP 36.6; O2SAT 99
[2023-08-15] MEDS: Hydroxychloroquine 200 MG Tablet PO (11:57)
[2023-08-15] MEDS: Furosemide 20 MG Tablet PO (11:57)
--- NOTE | 2023-08-15 15:07 | CASEMGMT ---
Met with patient to complete DIALLO form. DIALLO form explained to patient who voiced understanding and signed form. Original form placed in pt?s chart and copy provided to?patient. Carolina Mead, Discharge Planning Asst
[2023-08-15 15:38] VITALS: BP 105/90; PULSE 89; RESP 16; TEMP 36.6; O2SAT 98
--- NOTE | 2023-08-15 15:50 | PCM.CONS.C ---
Assessment & Plan Assessment/Plan (1) Elevated troponin: PLAN: Chest pain appears to be musculoskeletal in etiology. Patient has chronically elevated troponin. No further cardiac workup required for this at this time. (2) Tachycardia: PLAN: This could be a flutter with 2-1 conduction. Patient had recent fall. It is reasonable to keep her on just aspirin at this time. I would recommend 30-day event monitoring and follow-up with cardiology as an outpatient. HPI Consult Data Date of Consult: 08/15/23 HPI Narrative Reason for Consultation: Chest pain HPI Narrative: HUBERT DAVIS, is a 88 F who presents with left-sided chest pain. She had a fall about 9 to 10 days back and the pain is in the same area where she injured herself. The pain is worse when she moves a certain way. Patient was admitted to the PCU and her cardiac enzymes were cycled. Her high-sensitivity troponin is in the 400s but it has been in this range even in the past. She had coronary angiogram about a year back when her troponin was in this range and it did not show any obstructive CAD that required to be addressed. On telemonitoring patient had a brief episode of tachycardia that could be sinus or a flutter with 2:1 conduction. [facility] Medical History (Updated 08/15/23 @ 15:[address] Nathaly Donis MD) Anxiety Atherosclerosis of [place] coronary artery of [place] heart without angina pectoris Cataract Chest pain CHF (congestive heart failure) Chronic kidney disease (CKD) stage G3a/A1, moderately decreased glomerular filtration rate (GFR) between 45-59 mL/min/1.73 square meter and albuminuria creatinine ratio less than 30 mg/g Chronic pain Contact with and (suspected) exposure to other viral communicable diseases COVID-19 (~12/2021) Diastolic dysfunction Dyspnea Essential (primary) hypertension GERD (gastroesophageal reflux disease) History of pneumonia Hx of congestive heart failure Hypertension Hypothyroidism Lupus Migraines Myocardial infarct Non-rheumatic tricuspid valve insufficiency Non-smoker Nonrheumatic aortic valve insufficiency Nonrheumatic mitral valve insufficiency Nonrheumatic mitral valve prolapse Old myocardial infarction Osteoporosis Presence of stent in coronary artery (~03/08/19) Pure hypercholesterolemia Rheumatoid arthritis Troponin I above reference range URI (upper respiratory infection) Home Medications levothyroxine 25 mcg tablet 25 mcg PO MOTUWETHFR thyroid 12/13/15 [History Last Taken 02/23/23] colesevelam 625 mg tablet (WelChol) 1,250 mg PO DINNER diabetes 12/15/19 [History Last Taken 02/24/23] cholecalciferol (vitamin D3) 25 mcg (1,000 unit) tablet 1,000 unit PO DAILY supplement 08/24/20 [History Last Taken 02/25/23] coenzyme Q10 100 mg capsule 100 mg PO Q OTHER DAY supplement 01/09/21 [History Last Taken 02/25/23] calcium carbonate 500 mg calcium (1,250 mg) tablet 500 mg PO DAILY supplement 06/15/22 [History Last Taken 02/25/23] albuterol sulfate 90 mcg/actuation aerosol inhaler 1 - 2 puff inhalation Q6H PRN shortness of breath or wheezing #8.5 grams 08/09/22 [Rx Last Taken Unknown] artifi.tears(hypromellose)(PF) 1.7 % eye drops with applicator 2 drp ophthalmic (eye) .AM eye health 08/09/22 [History Last Taken 02/25/23] levothyroxine 50 mcg capsule 50 mcg PO SUSA thyroid 02/20/23 [History Last Taken 02/25/23] tramadol 50 mg tablet 25 - 50 mg PO TID PRN Pain 02/25/23 [History Last Taken 02/25/23] aspirin 81 mg tablet,delayed release (Adult Low Dose Aspirin) 81 mg PO DAILY heart health 03/04/23 [History Last Taken Unknown] furosemide 40 mg tablet 20 mg (1/2 x 40 mg) PO DAILY Please don't refill until pt calls: she has GOBS. #90 tabs 06/28/23 [Rx Last Taken Unknown] hydroxychloroquine 200 mg tablet 200 mg PO DAILY 07/22/23 [History Last Taken Unknown] losartan 25 mg tablet 25 mg PO DAILY 07/22/23 [History Last Taken Unknown] vitamin B complex (B Complex-Vitamin B12 tablet) 1 tab PO DAILY vitamin 07/22/23 [History Last Taken Unknown] hydrocodone-acetaminophen 5-325mg 5mg-325mg 1 tab PO Q4H PRN PRN Pain 3 days #12 TABLETS 08/03/23 [Rx Last Taken Unknown] pimecrolimus 1 % topical cream 1 applic topical BID lupus of the skin 08/14/23 [History Last Taken Unknown] Allergy/AdvReac Type Severity Reaction Status Date / Time nitrofurantoin Allergy Intermediate thrush Verified 08/14/23 07:36 [From Macrobid] latex Allergy Mild Rash Verified 08/14/23 07:36 Penicillins [PCN] Allergy not sure Verified 08/14/23 07:36 Svfckgb-JHF-WbE Reductase Allergy All blood Verified 08/14/23 07:36 Inhibitor cells low [Wsycqkb-Ivx-Ruk Reductase Inhibitor] amoxicillin [From Augmentin] AdvReac Severe syncope Verified 08/14/23 07:36 clavulanic acid AdvReac Severe syncope Verified 08/14/23 07:36 [From Augmentin] carvedilol [From Coreg] AdvReac Intermediate Very Verified 08/14/23 07:36 fatigued on smallest dose clopidogrel [From Plavix] AdvReac Intermediate Severe Verified 08/14/23 07:36 diarrhea doxycycline AdvReac GI Verified 08/14/23 07:36 symptoms, emesis Sulfa (Sulfonamide AdvReac Nausea/Vom/ Verified 08/14/23 07:36 Antibiotics) Diarrhea Family History Father CAD (coronary artery disease) Myocardial infarction Mother CVA (cerebral vascular accident) Brother Aneurysm Brother Heart disease Myocardial infarction Sister Afib Parkinson's disease CVA (cerebral vascular accident) Surgical History (Updated 08/14/23 @ 14:24 by Adali Delgadillo) History of appendectomy History of coronary artery stent placement History of dilatation and curettage History of left heart catheterization (LHC) (~01/24/21) History of total adrenalectomy Presence of coronary angioplasty implant and graft (~03/08/19) S/P coronary artery stent placement (03/08/19) Social History Smoking Status: Never smoker Electronic Cigarette Use: not used second hand exposure: No alcohol intake: never substance use type: does not use caffeine: Yes Type: coffee Number of servings: 1 what type of physical activity do you participate in: other details: [employer] frequency: 3-4 times per week duration: 45-60 minutes/day seatbelt use: always do you feel safe at home: Yes Physical Exam Const alert and oriented x3 HEENT normocephalic Eyes no scleral icterus Resp normal respiratory effort Cardio regular rate Risk Stratification Risk Stratification Applicable: No Charges/Coding Visit Charges Inpatient E&M: 21023 Init Hosp L1 Objective Data Vital Signs: Vital Signs Temp Pulse Resp BP Pulse Ox O2 Del Method 97.8 F 89 16 105/90 H 98 Room Air 08/15/23 15:38 08/15/23 15:38 08/15/23 15:38 08/15/23 15:38 08/15/23 15:38 08/15/23 15:38 Oxygen Delivery Method Room Air Weight: 103 lb 13.404 oz Body Mass Index (BMI) 19.6 Lab / Micro Data 08/15/23 05:45 08/15/23 05:45 Labs: Laboratory Results - last 24 hr 08/15/23 05:45: WBC 3.1 L, RBC 3.58 L, Hgb 10.7 L, Hct 32.7 L, MCV 91.3, MCH 29.9, MCHC 32.7, RDW Std Deviation 41.3, RDW Coeff of Young 12.2, Plt Count 214, MPV 9.2, Sodium 133 L, Potassium 4.6, Chloride 101, Carbon Dioxide 24.0, Anion Gap 8, BUN 29 H, Creatinine 1.19 H, Estim Creat Clear Calc 24.76, Est GFR (MDRD) Af Amer 55 L, Est GFR (MDRD) Non-Af 46 L, BUN/Creatinine Ratio 24.4 H, Glucose 89, Calcium 8.7 Rhythm Strip Rhythm Strip: Sinus Rhythm Rate: 80 Ectopy: None Cardiology Labs/Tests 08/15/23 05:45: WBC 3.1 L, RBC 3.58 L, Hgb 10.7 L, Hct 32.7 L, MCV 91.3, MCH 29.9, MCHC 32.7, Plt Count 214, MPV 9.2, Sodium 133 L, Potassium 4.6, Chloride 101, Carbon Dioxide 24.0, Anion Gap 8, BUN 29 H, Creatinine 1.19 H, Est GFR (MDRD) Af Amer 55 L, Est GFR (MDRD) Non-Af 46 L, BUN/Creatinine Ratio 24.4 H, Glucose 89, Calcium 8.7 Rhythm: EKG: ECHO: Stress Test: Cardiac Cath: PCI: CT Surgery: Holter monitor: EPS: PPM: CXR: Chest CT Scan: Radiography Diagnostic Testing: Radiology Impression Echocardiogram 08/14/23 14:31 Interpretation Summary The estimated ejection fraction is 50-55 %. Diastolic function is indeterminate. The left atrium is mildly enlarged. Mild (1+) mitral valve insufficiency. Mild (1+) aortic valve insufficiency. Ordering Physician: Ganesh Brady Referring Physician: Dori Boyd M.D. Performed By: Lora Mena RDCS
--- NOTE | 2023-08-15 16:19 | PCM.DC ---
Discharge Instructions Diet Discharge Diet: No restrictions Activity Discharge Activity: Return to Normal Activity Weight Bearing Status: Full weight bearing Follow Up Care Please Follow Up With: Dori Boyd DO When: As needed Test Results: Test results from this visit will be discussed in further detail at your follow-up appointment, if applicable. Pending Tests Upon Discharge: None Discharge Plan Admission Admit Date/Time: 08/14/23 12:39 Primary Reason for Your Visit: Chest pain, recent fall Attending Provider: Ganesh Brady Primary Care Provider: Dori Boyd Consulting Providers: Nathaly Donis Instructions Additional Instructions / Restrictions: Continue all home medications as prescribed. The event monitor will be mailed to your home and cardiology will follow up with you on how to use this. Discharge Orders/Prescriptions Prescriptions: Continued colesevelam [WelChol] 625 mg tablet 1,250 mg PO DINNER Rx Instructions: 1,250 mg orally daily i; coenzyme Q10 100 mg capsule 100 mg PO Q OTHER DAY calcium carbonate 500 mg calcium (1,250 mg) tablet 500 mg PO DAILY vitamin B complex [B Complex-Vitamin B12] Tablet 1 tab PO DAILY artifi.tears(hypromellose)(PF) 1.7 % drops with applicator 2 drp ophthalmic (eye) .AM albuterol sulfate 90 mcg/actuation HFA aerosol inhaler 1 - 2 puff inhalation Q6H PRN (Reason: shortness of breath or wheezing) Qty: 8.5 1RF Patient Comments: breathing losartan 25 mg tablet 25 mg PO DAILY hydroxychloroquine 200 mg tablet 200 mg PO DAILY Patient Comments: TAKE 1 TABLET DAILY levothyroxine 25 MCG tablet 25 mcg PO MOTUWETHFR Patient Comments: thyroid cholecalciferol (vitamin D3) 25 mcg (1,000 unit) tablet 1,000 unit PO DAILY Patient Comments: supplement levothyroxine 50 mcg Capsule 50 mcg PO SUSA tramadol 50 mg tablet 25 - 50 mg PO TID PRN (Reason: Pain) Patient Comments: TAKE 1/2 TO 1 TABLET BY MOUTH 3 TIMES A DAY NEEDED FOR PAIN hydrocodone-acetaminophen 5-325 mg tablet 1 tab PO Q4H PRN PRN (Reason: Pain) 3 Days Qty: 12 0RF pimecrolimus 1 % cream 1 applic TOPICAL BID aspirin [Adult Low Dose Aspirin] 81 mg tablet,delayed release (DR/EC) 81 mg PO DAILY furosemide 40 mg tablet 20 mg PO DAILY Qty: 90 3RF Other Ambulatory Orders: 30 Day Event Recorder Preventi (Urgent) Timeframe: 1 Day Facility: [facility] - Location: Cardiovascular Services Ordered By: Dr. Ganesh Brady Referrals / Follow Up: Dori Boyd DO [Primary Care Provider] - Disposition Disposition (needs filled in before D/C Order can be placed): Home, Self Care
--- NOTE | 2023-08-15 16:24 | DS.PCM_ITS ---
Providers Date of Admission: 08/14/23 Date of Discharge: 08/15/23 Primary Care Physician: Dr. Dori Boyd, Consultations 08/14/23 14:31 Consult: Cardiology Routine Consulting Provider: Nathaly Donis Reason for Consult: NSTEMI, h/o CAD s/p stents EMERGENT Consult: No MD Notified: Yes Date Notified: 08/14/23 Time Notified: 14:35 Method of Notification: Text Reason For Visit: NSTEMI Diagnosis Discharge Diagnosis (1) Elevated troponin: Status: Acute Code(s): R74.8 - Abnormal levels of other serum enzymes (2) Tachycardia: Status: Acute Code(s): R00.0 - Tachycardia, unspecified Medications at Discharge Home Medications levothyroxine 25 mcg tablet 25 mcg PO MOTUWETHFR thyroid 12/13/15 colesevelam 625 mg tablet (WelChol) 1,250 mg PO DINNER diabetes 12/15/19 cholecalciferol (vitamin D3) 25 mcg (1,000 unit) tablet 1,000 unit PO DAILY sup plement 08/24/20 coenzyme Q10 100 mg capsule 100 mg PO Q OTHER DAY supplement 01/09/21 calcium carbonate 500 mg calcium (1,250 mg) tablet 500 mg PO DAILY supplement 06/15/22 albuterol sulfate 90 mcg/actuation aerosol inhaler 1 - 2 puff inhalation Q6H PRN shortness of breath or wheezing #8.5 grams 08/09/22 artifi.tears(hypromellose)(PF) 1.7 % eye drops with applicator 2 drp ophthalmic (eye) .AM eye health 08/09/22 levothyroxine 50 mcg capsule 50 mcg PO SUSA thyroid 02/20/23 tramadol 50 mg tablet 25 - 50 mg PO TID PRN Pain 02/25/23 aspirin 81 mg tablet,delayed release (Adult Low Dose Aspirin) 81 mg PO DAILY heart health 03/04/23 furosemide 40 mg tablet 20 mg (1/2 x 40 mg) PO DAILY Please don't refill until pt calls: she has GOBS. #90 tabs 06/28/23 hydroxychloroquine 200 mg tablet 200 mg PO DAILY 07/22/23 losartan 25 mg tablet 25 mg PO DAILY 07/22/23 vitamin B complex (B Complex-Vitamin B12 tablet) 1 tab PO DAILY vitamin 07/22/23 hydrocodone-acetaminophen 5-325mg 5mg-325mg 1 tab PO Q4H PRN PRN Pain 3 days #12 TABLETS 08/03/23 pimecrolimus 1 % topical cream 1 applic topical BID lupus of the skin 08/14/23 Hospital Course Operations None Procedures EKG, Transthoracic echo and - (Chest x-ray with ribs, shoulder x-ray) Summary of Care Provided Minutes Spent on Discharge: 35 Hospital Course: Patient is an 88-year-old female who presented to [facility] ED on 08/14/2023 with recent fall, worsening weakness and left-sided chest pain. Short hospital course as noted below. Patient was discharged home in stable condition on 08/15. 1. NSTEMI, history of CAD s/p stenting, episodes of tachycardia EKG normal on admit. Troponin elevated to 489, repeat 452 in ED; however his troponins are persistently elevated in the low to mid 400s. Echo on 08/14 showed EF 50 to 55%, no regional wall motion abnormalities, similar to previous echo in 12/2021 and EF 55% noted on LV gram during left heart cath in 01/2023. Patient follows outpatient with cardiology, last office appointment on 07/22. Has history of multiple stents placed, last stenting done in 2019; LHC in 01/2023 showed nonobstructive CAD with stents in LAD and diagonal patent, mild diffuse disease in LCx and RCA. Reports compliance with home medication regimen. ? Cardiology evaluated. Had very low concern for cardiac etiology, suspected that her chest pain was musculoskeletal in nature, due to recent fall as noted below. Okay to continue aspirin, Lasix and losartan on discharge. Cardiology notably did notice a few episodes of tachycardia of unclear etiology during this admission. Patient's vitals remained stable during these episodes. Patient discharged home with 30-day event monitor, which will be followed up by cardio logy outpatient. 2. Recent fall with debility Patient lives at home with , has good functional status at baseline. Reported mechanical fall at home onto her left side and had left sided pain due to this. X-rays on admit showed no fractures. ? PT/OT/case management followed. Patient did well with therapy, was okay for discharge home without any home-going needs. Chronic medical conditions: ? Chronic hyponatremia: At baseline, stable. ? Hypothyroidism: Continued home Synthroid. ? Lupus with chronic pain: Continued home hydroxychloroquine, duloxetine, tramadol as needed. ? Anxiety/depression: Stable. Continued home duloxetine. Total clinical time spent by myself addressing the patient's discharge needs: 35 minutes. Physical Exam Const alert, oriented x3 and no apparent distress Constitutional Narrative: Pleasant elderly female, thin appearing, laying comfortably in bed, conversing normally, no acute distress. General Appearance: cooperative and comfortable HEENT normocephalic, head/scalp atraumatic, hearing grossly normal bilaterally, nasal mucous membranes and turbinates normal and moist oral mucous membranes Eyes PERRL, EOMs intact bilaterally and conjunctivae normal Neck full ROM, no lymphadenopathy and supple Lymph Lymphatic: no lymphadenopathy noted Chest Chest Narrative: Mild to moderate tenderness to palpation in left upper rib area. Resp normal respiratory effort, normal air movement, no use of accessory muscles and clear to auscultation bilaterally Cardio regular rate, regular rhythm, no murmurs and peripheral pulses 2+ throughout GI normal to inspection, nondistended, normoactive bowel sounds, soft to palpation, non-tender and non-distended Back/Spine normal ROM Extremity normal to inspection, full ROM and no pedal edema Skin no rashes or lesions noted Neuro moves all extremities and no focal motor deficits Speech: speech normal Psych mental status grossly normal Weight / BMI Weight Weight: 47.1 kg Body Mass Index (BMI) 19.6 ABG / Lab / Microbiology Data 08/15/23 05:45 08/15/23 05:45 Laboratory: Laboratory Results - last 24 hr 08/15/23 05:45: WBC 3.1 L, RBC 3.58 L, Hgb 10.7 L, Hct 32.7 L, MCV 91.3, MCH 29.9, MCHC 32.7, RDW Std Deviation 41.3, RDW Coeff of Young 12.2, Plt Count 214, MPV 9.2, Sodium 133 L, Potassium 4.6, Chloride 101, Carbon Dioxide 24.0, Anion Gap 8, BUN 29 H, Creatinine 1.19 H, Estim Creat Clear Calc 24.76, Est GFR (MDRD) Af Amer 55 L, Est GFR (MDRD) Non-Af 46 L, BUN/Creatinine Ratio 24.4 H, Glucose 89, Calcium 8.7 Radiography Diagnostic Testing: Radiology Impression Echocardiogram 08/14/23 14:31 Interpretation Summary The estimated ejection fraction is 50-55 %. Diastolic function is indeterminate. The left atrium is mildly enlarged. Mild (1+) mitral valve insufficiency. Mild (1+) aortic valve insufficiency. Ordering Physician: Ganseh Brady Referring Physician: Dori Boyd M.D. Performed By: Lora Mena RDCS D/C Instructions Discharge Diet: No restrictions Weight Bearing Status: Full weight bearing Pending Tests Upon Discharge: None Please Follow Up With: Dori Boyd DO When: As needed Meaningful Use Info Meaningful Use Diagnoses (Choose all that apply): None applicable Discharge Plan Admission Admit Date/Time: 08/14/23 12:39 Primary Reason for Your Visit: Chest pain, recent fall Attending Provider: Ganesh Brady Primary Care Provider: Dori Boyd Consulting Providers: Nathaly Donis Instructions Additional Instructions / Restrictions: Continue all home medications as prescribed. The event monitor will be mailed to your home and cardiology will follow up with you on how to use this. Discharge Orders/Prescriptions Prescriptions: Continued colesevelam [WelChol] 625 mg tablet 1,250 mg PO DINNER Rx Instructions: 1,250 mg orally daily i; coenzyme Q10 100 mg capsule 100 mg PO Q OTHER DAY calcium carbonate 500 mg calcium (1,250 mg) tablet 500 mg PO DAILY vitamin B complex [B Complex-Vitamin B12] Tablet 1 tab PO DAILY artifi.tears(hypromellose)(PF) 1.7 % drops with applicator 2 drp ophthalmic (eye) .AM albuterol sulfate 90 mcg/actuation HFA aerosol inhaler 1 - 2 puff inhalation Q6H PRN (Reason: shortness of breath or wheezing) Qty: 8.5 1RF Patient Comments: breathing losartan 25 mg tablet 25 mg PO DAILY hydroxychloroquine 200 mg tablet 200 mg PO DAILY Patient Comments: TAKE 1 TABLET DAILY levothyroxine 25 MCG tablet 25 mcg PO MOTUWETHFR Patient Comments: thyroid cholecalciferol (vitamin D3) 25 mcg (1,000 unit) tablet 1,000 unit PO DAILY Patient Comments: supplement levothyroxine 50 mcg Capsule 50 mcg PO SUSA tramadol 50 mg tablet 25 - 50 mg PO TID PRN (Reason: Pain) Patient Comments: TAKE 1/2 TO 1 TABLET BY MOUTH 3 TIMES A DAY NEEDED FOR PAIN hydrocodone-acetaminophen 5-325 mg tablet 1 tab PO Q4H PRN PRN (Reason: Pain) 3 Days Qty: 12 0RF pimecrolimus 1 % cream 1 applic TOPICAL BID aspirin [Adult Low Dose Aspirin] 81 mg tablet,delayed release (DR/EC) 81 mg PO DAILY furosemide 40 mg tablet 20 mg PO DAILY Qty: 90 3RF Other Ambulatory Orders: 30 Day Event Recorder Preventi (Urgent) Timeframe: 1 Day Facility: [facility] - Location: Cardiovascular Services Ordered By: Dr. Ganesh Brady Referrals / Follow Up: Dori Boyd DO [Primary Care Provider] - Disposition Disposition (needs filled in before D/C Order can be placed): Home, Self Care Charges/Coding Visit Charges Inpatient E&M: 85611 Disch Hosp >30min
== END 2023-08-15 16:24 | disposition home or self-care (01) ==
LOC: ED 11:03 → PCU 12:47
PROVIDERS: Emergency Medicine; Admitting Provider Hospitalist; Emergency Provider Emergency Medicine; PCP Internal Medicine; Visit Provider Hospitalist
DX: R07.89 Other chest pain (principal); M32.9 Systemic lupus erythematosus, unspecified; I13.0 Hypertensive heart and chronic kidney disease with heart failure and stage 1 through stage 4 chronic kidney disease, or unspecified chronic kidney disease; I50.9 Heart failure, unspecified; N18.31 Chronic kidney disease, stage 3a; Z86.16 Personal history of COVID-19; I25.10 Atherosclerotic heart disease of native coronary artery without angina pectoris; E78.00 Pure hypercholesterolemia, unspecified; E87.1 Hypo-osmolality and hyponatremia; E03.9 Hypothyroidism, unspecified; G89.29 Other chronic pain; Z79.82 Long term (current) use of aspirin; M16.0 Bilateral primary osteoarthritis of hip; F41.9 Anxiety disorder, unspecified; Z79.899 Other long term (current) drug therapy; Z79.890 Hormone replacement therapy; F32.A Depression, unspecified; M25.512 Pain in left shoulder; R07.81 Pleurodynia; Z91.81 History of falling
CPT/HCPCS: 36415; 71101; 73030; 80048; 84484; 85025; 85027; 93005; 93306; 94668; 97162; 97166; 99221; 99285; A4216; G0378

== ENCOUNTER → 2023-09-06 | Outpatient (CLI) | payer MEDICARE, SELFPAY ==
[2019-02-27 14:50] VITALS: BMI 22.1
== END | disposition home or self-care (01) ==
PROVIDERS: PCP Internal Medicine; Referring Provider Internal Medicine Cardiovascular Disease; Visit Provider Internal Medicine Cardiovascular Disease
DX: R00.0 Tachycardia, unspecified (principal); R00.2 Palpitations
CPT/HCPCS: 93225; 93226

== ENCOUNTER 2023-10-02 15:47 | Observation (INO) | payer MEDICARE, SELFPAY ==
[2019-02-27 14:50] VITALS: BMI 22.1
[2023-09-24 15:46] LABS: International Normalized Ratio 1.1; Partial Thromboplast Time 24.6 Seconds (24.1-36.2); Prothrombin Time (Protime)PT. 13.8 SECONDS (11.7-14.9)
[2023-09-24 16:40] LABS: AST(SGOT) 25 U/L (15-37); Alanine Aminotransfer ALT/SGPT 21 U/L (13-56); Albumin, Serum 3.5 g/dL (3.2-5.0); Alkaline Phosphatase 83 U/L (45-117); Bilirubin, Direct 0.11 mg/dL (0.00-0.30); Globulin 3.6 g/dL (2.2-4.2); Magnesium 2.5 mg/dL (1.6-2.6); Protein, Total 7.1 g/dL (6.4-8.2); Thyroid Stim Hormone (TSH) 2.93 uIU/mL (0.358-3.74)
[2023-09-24 16:47] LABS: Hemoglobin A1c 5.4 % (3.8-5.6)
--- NOTE | 2023-09-27 07:19 | HP.PCM_ITS ---
History and Physical History and Physical? Patient Name: Amandeep Dyson : 1935 From:? MARIE CONTRERAS PA-C? DATE OF PRE-OPERATIVE EXAM: 09/25/2023 DATE OF SURGERY:? 10/02/2023 SCHEDULED PROCEDURE:? Right total hip arthroplasty HISTORY OF PRESENT ILLNESS: Preoperative history and physical exam was performed on September 25, 2023.? This is a 88-year-old female who has been having ongoing right hip pain for approximately over 1 year.? Patient has required to go to the emergency room secondary to hip pain.? She is also followed by Dr. Nathaniel Madison for low back pain and radicular symptoms.? She was referred to pain management with Dr. Laws in which she has had caudal epidural injections.? She is also on tramadol.? She did attempt hydrocodone/acetaminophen but she states she did not like how she felt on this medication.? Dr. Laws also gave patient a intra- articular right hip corticosteroid injection in which she states she did not get any significant relief.? Patient reports that her pain can reach 10/10 and most of her pain is in her groin.? She does get radicular symptoms.? She has been primarily reliant on a wheelchair and has been homebound.? Walking has been very difficult.? She has had constant pain, aching, sharp and stabbing sensation.? She has increased pain with going up and down stairs, driving, sitting and walking.? She has severe pain with weightbearing and any range of motion.? She has difficulty with bathing/showering, getting dressed, housework, shopping.? She has tripped/stumbled secondary to the hip pain and has difficulty with balance.? She denies past history of surgery on the right hip.? She has tried physical therapy, home exercises and medicare coordinator without relief.? After failing conservative measures and discussing all treatment options was Dr. Hudson Miller, the patient does wish to proceed with a right total hip arthroplasty.? We have obtain surgical clearance from the primary care provider Dr. Boyd.? We have also obtained surgical clearance from the cardiology group at [facility] with Dr. Akhtar.? Patient has medical history pertinent for congestive heart failure, previous heart attack, previous heart catheter and stents, gastroesophageal reflux disease, coronary artery disease, thyroid disease, rheumatoid arthritis, hypertension, venous insufficiency bilaterally, stage III chronic kidney disease, mild memory impairment listed per primary care physician note, and lupus.? She denies past history of DVT or pulmonary embolism.? Denies any recent chest pain, shortness of breath, fevers chills or recent infections.? There is also concern on postoperative discharge from the patient as her may not feel that he can care for her.? I did explain to the patient that we will have physical therapy assess her for appropriate and safe discharge planning.? She will be assessed for possible correction facility versus rehabilitation Center versus home health. REVIEW OF SYSTEMS: Review Of Systems: Constitutional: Reports weight change, but denies change in appetite and fever. Cardiovasular: Reports chest pain, heart murmur and irregular heartbeat. Respiratory: Reports cough, pneumonia and shortness of breath, but denies tuberculosis and wheezing. Gastrointestinal: Reports constipation, diarrhea, dysphagia, heartburn and vomiting, but denies nausea, rectal itching and bloody stools. Genitourinary: Reports frequent UTIs. Musculoskeletal: Reports gait disturbance, leg swelling, pain, trouble walking and weakness. Skin: Reports history of shingles, but denies Raynaud's and tattoo. Neurological: Reports ambulatory dysfunction and numbness/tingling but denies dizziness and tremor. Psychiatric: Reports anxiety and stress, but denies insomnia. Hematologic/Lymphatic: Reports bleeding/bruising tendency, but denies anemia and past transfusion. Reviewed, no changes. PAST MEDICAL HISTORY: Advance Care Plan: Other Directive, POA Effective Date: 04/24/2023 Other Directive, LIVING WILL Effective Date: 04/24/2023 Past Medical History: Medical Problems: Acid Reflux, Arthritis, Congestive Heart Failure (CHF), Coronary Artery Disease (CAD), Heart Attack, Osteoporosis, Rheumatoid Arthritis, Thyroid Disease, Covid- 19, Covid-19 Vaccine, High Blood Pressure, venous inefficiency Kidney Disease/Renal Failure - stage 3? memory impairment - listed on primary care physician office note? Lupus Accidents: None Surgical Hx: Appendectomy - (8) [facility] [place]? Cataracts - (2007) Heart Stent - (2018) [facility] ? RT Andrenal Gland - (2008)? [facility]? Anesthesia Complications: None Assistive Devices: Cane, Walker Reviewed and updated. SOCIAL HISTORY: Social History: Marital: .Occupation: Retired.Work Status: Retired.Hand Dominance: Right- handed. Personal Habits:? Cigarette Use: Never Smoked Cigarettes.Smokeless Tobacco: Never Used Smokeless Tobacco.E-Cigarette Use: Never used.Alcohol: Denies use.Drug Use: Denies Use.Enjoy Exercising: Daily. Reviewed, no changes. VITALS: Ht: 50 Wt: 105lb Wt k.628 BMI: 29.5 BP: 126/78 Pulse: 68 Resp: 14 T: 97.3 T: 36.3C Pain Level: 10 O2SatR: 96 ALLERGIES: Sulfa Statins Doxycycline Clavulanic Acid Nitrofurantoin Amoxicillin Clopidogrel Latex? MEDICATIONS: Aspirin 81 mg daily, Levothyroxine Sodium 25 mcg susa, Improvue 1.7 % .am, Calcium Carbonate 1250 (500 Ca) MG daily, B-12 5000 mcg every other day, Coenzyme Q10 100 mg every other day, [facility] High-Potency Vitamin D 1000 Unit daily, Colesevelam HCL 625 mg daily, Losartan Potassium 25 mg take 1 tablet by mouth every day, Hydroxychloroquine Sulfate 200 mg take 1 tablet by mouth every day, Furosemide 40 mg take 1/2 tablet by mouth every day, Calcium + Vitamin D3 600-10 MG-mcg one tab po once daily, Acetaminophen 500 mg one tab po tid prn, Cardio+ Supplement? two pills po once daily, Pimecrolimus 1 % two times daily, Tramadol HCL 50 mg 1-2 daily, Folic Acid 1 mg 1 by mouth every day, Ferrous Sulfate 325 (65 Fe) MG take 1 tablet by mouth twice a day PRE-OP EXAM:? General appearance:NORMAL? ? ? Other: Eyes: Conjunctivae and lids: NORMAL? Pupils: ERR Ears, Nose, Mouth, and Throat: NORMAL? Other: Inspection of lips, teeth and gums: NORMAL? ?Other: Neck: Examination of neck: no masses noted. Respiratory: Assessment of respiratory effort: NORMAL? ?Other: ?Auscultation of lungs: clear to auscultation no wheezes, rhonchi or rales. Cardiovascular:? Auscultation of heart: regular rate and rhythm, no murmurs, gallops or rubs. PHYSICAL EXAMINATION: This is a pleasant 88-year-old female who presents in a wheelchair in which exam is difficult.? She has significant pain with any mobility and movement.? Decreased balance.? She has tenderness to palpation in the right lateral hip and buttock region.? She has crepitus with range of motion and increased pain in the groin with range of motion.? Range of motion is very limited with internal rotation 5 and external rotation 10.? Limited flexion secondary to pain.? She was able to actively plantarflex and dorsiflex.? Sensation was intact to light touch to bilateral lower extremities.? Patient does have varicosities bilaterally.?? IMAGING STUDIES: Previous x-rays of the right hip reveal severe hip joint space narrowing with complete loss of joint space, evidence of femoral head collapse consistent with avascular necrosis.? X-rays were compared to previous x-rays in 2022 and does show further collapse. IMPRESSION: 1.? 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 Hypertension 3.? Coronary artery disease 4.? Congestive heart failure 5.? Previous history of heart attack with heart catheter and stents 6.? Gastroesophageal reflux disease 7.? Osteoporosis 8.? Rheumatoid arthritis 9.? Thyroid disease 10.? Bilateral venous insufficiency 11.? Chronic kidney disease stage III 12.? Mild memory impairment her primary care physician no 13.? Lupus 14.? Overweight with BMI 29.5 PLAN: Dr. Hudson Miller did discuss and review with the patient all treatment options including surgical versus nonsurgical options.? Patient does wish to proceed with the above-stated procedure.? Potential risks, benefits, and complications of the procedure were discussed in detail including but not limited to , infection, nerve and blood vessel damage, persistent pain, numbness, tingling, paresthesias, blood clot, pulmonary embolism, and requirement for possible further surgery.? The patient expressed full understanding and has no further questions for the doctor.? Patient does agree to proceed with the above-stated procedure and has signed the surgery consent form. POST-OP MEDICATION PLAN: Pain Medications:? Patient does report that she does not do very well with narcotics.? She does tolerate tramadol better than the others.? We are unable to use oral nonsteroidal anti-inflammatories postoperatively due to chronic kidney disease and heart history.? Did discuss with Dr. Laws and we will manage postoperative pain medications for the first 6 weeks postoperatively.? Patient also has concerns with postoperative management upon discharge.? I did discuss with her that we will have physical therapy evaluate her and have case management/ulcer Walker on board for appropriate and safe discharge planning.? Patient does have a RAPT score of 01/11. Risk Assessment and Prediction Tool (RAPT) Score:? 01/11 DVT Prophylaxis:? Aspirin 81 mg twice daily for 4 weeks postoperatively.? Denies past history of DVT or pulmonary embolism This dictation was created using voice recognition software. Phonetic and/or grammatical errors may exist. ___? I have re-examined the patient.? There are no clinical changes since date of exam. ___? See progress notes for changes. ___? Dictated on admission Date: ? ? ?Time: Signature:
[2023-10-02] VITALS (14 sets, daily range): BP systolic 96–156; BP diastolic 58–79; PULSE 84–105; RESP 12–18; TEMP 36.3–37.3; O2SAT 94–100
--- NOTE | 2023-10-02 07:13 | OP.PCM_ITS ---
Report of Operation Date of Procedure: 10/02/23 Pre-Operative Diagnosis: Right hip primary osteoarthritis Post-Operative Diagnosis: Right hip primary osteoarthritis Surgery/Procedure Performed:: Right minimally invasive direct anterior total hip replacement Description of Surgical Findings:: Stable hip with equal leg length Surgeon: Hudson Miller cargo supervisor: Jim Smalls Type of Anesthesia: Spinal Anesthesiologist: Larry Lopez Special Medications: 2 g Ancef, 1 g TXA at incision, 1 g TXA closure, 10 mg Decadron, joint cocktail (5 mg Duramorph, 30 mL of 0.5% Ropivicaine, 1000 units of epinephrine, 30 mg of Toradol) Specimen's removed: Bony cuts Estimated Blood Loss (mL): 300 Fluids Replaced: 700 ML CRYSTALLOID Description of Procedure: Components used: 1. Insignia Crisfield femoral stem size 2 high offset 2. Layla trident 2 acetabular shell size 58 mm 3. Layla X3 polyethylene 46 F 4. Layla Biolox delta 28 mm, -4 mm femoral head 5. Layla MDM cobalt-chromium liner alpha code F Brief history operative indications: 88 yo F who failed conservative measures for their hip osteoarthritis. X-rays were consistent with osteoarthritis including joint space narrowing, osteophyte formation and subchondral cysts. Total hip replacement was discussed with the patient with risks and benefits including but not limited to blood loss, DVTs, PEs, neurovascular damage, dislocation, general risks of anesthesia including loss of life. Patient demonstrated an understanding medical clearance is obtained the patient was consented for surgery. Procedure: On the date of procedure the patient's right hip was marked in the preoperative area. Patient was then taken back to the operating room where anesthesia assumed control of the C-spine and airway and administered anesthetic. Patient was transferred to the operating table and placed in the supine position. The hips were placed at the break of the bed and a sacral bump was placed. The right lower extremity was then prepped out in a sterile fashion using chlorhexidine while the surgeon scrubbed. The PA was vital in the positioning of the patient. Upon reentering the room the right lower extremity was draped in the standard orthopedic fashion and the incision was marked. A timeout was called and everyone agreed upon the side, the site, the procedure be performed, antibody given, and patient's identity. At this time incision was made through skin, subcutaneous tissue, and fat down to fascia. The fascia was then incised and the TFL was retracted laterally. A retractor was placed on the lateral border of the femoral neck. Attention was directed to the inferior portion of the approach and all crossing vessels were identified and appropriately coagulated. A retractor was then placed on the medial portion of the femoral neck. The anterior capsule was then cleared of all soft tissue and then H shaped capsulotomy was made. The retractors were then placed inside the capsule. The femoral neck was identified and a cleanup cut was made. At this time a power corkscrew was used to remove the femoral head. Attention was then turned toward the acetabulum where the soft tissues were appropriately retracted and the acetabulum was sequentially reamed to 58 mm. Based on patient's bone quality and acetabular erosion we did use live x-ray to verify appropriate reaming has been performed. Also there was a large cyst proximally we did use the patient's femoral head to obtain bone graft and we packed the cyst with bone graft after debriding it. Once was done, A 58 mm cup was then selected and impacted into place. 2 screws were placed in the safe zone. Acetabular liner was impacted into place and locking mechanism was verified. The position of the acetabular cup was then verified under live fluoroscopy. Attention was then turned to the femur. Soft tissue releases on the medial and lateral femoral neck were appropriately done, the leg was externally rotated and lateralized. A Clay retractor was placed medially and proximally to the greater trochanter this allowed appropriate visualization and exposure of the femoral canal. Rongeour was then used to remove excess lateral bone. A canal finder and entry broach were used to open the proximal canal. Once we verified we were down the femoral canal we subsequently broached up to a size 2 femur. The appropriate neck was placed in the previously selected head was trialed with a -4 mm neck. Traction was pulled and the hip was reduced with internal rotation. Once it was appropriately reduced and stability was checked. There was minimal shuck, equal leg lengths and appropriate stability with hyperextension and external rotation as well as with 90? flexion and internal rotation. Fluoroscopy was then also used to verify the position of the components and leg lengths using the contralateral side for comparison. The trial components were then dislocated the proximal femur was again exposed and the components were removed from the wound. The final components were verified and opened. The wound was copiously irrigated out with normal saline. The acetabulum was checked for any residual debris. The final components were placed and impacted. Traction and internal rotation were again used to reduce the hip. After adequate reduction the hip remained stable with appropriate leg lengths. The final components were once again checked with live fluoroscopy and were found to be satisfactory. The wound was then copiously irrigated with normal saline once more, and hemostasis was obtained. Closure was then done using #1 Vicryl runner to close the fascia. A 2-0 vicryl interuppted sutures were used to close the subcutaneous skin. A 2-0 nylon sutures were used for final skin closure. A Silverlon dressing was placed. Patient was awakened by anesthesia and transferred to the [place]. Patient was then transferred to the PACU for recovery. During the course of the procedure the physician clinical trials manager (PE) played a vital role. Their intimate knowledge of my steps in the procedure aided in safe and expedient completion of the procedure. The PE played a vital rolls in positioning particularly in obtaining the appropriate positioning of the sacral bump. The PE was also vital in the retraction of soft tissues during the exposure and especially the femoral work as this is a vital part of the procedure to prevent complications and fractures. The PE was also vital and protecting soft tissues during times of bony cuts and reaming. He also played a vital role in closure with my direct supervision. The PE was also important during reduction and dislocation of the joint and trials intraoperatively. Postoperative plan: Patient will get 24 hours postop antibiotics. Patient will get in-house physical therapy and will be weight-bear as tolerated. Patient will follow up in office in 2 weeks for a wound check and x-rays. Aspirin 81 mg twice daily. Complications No intraoperative complications Admit VTE Documentation VTE Present on Admission: No VTE Mechan Device Prophylaxis: SCD's and Thigh High ZA Hose VTE Pharm Prophylaxis ordered?: Yes
[2023-10-02 08:29] LABS: Bedside Glucose 80 mg/dL (74-106)
[2023-10-02] MEDS: Acetaminophen 500 MG Tablet 1000 MG PO ×3 (08:33→21:22)
[2023-10-02] MEDS: Magnesium 1 GM over 15 mins IV (08:33)
[2023-10-02] MEDS: Gabapentin 600 MG Tablet PO (08:33)
[2023-10-02] MEDS: Lactated Ringers 1,000 ML 999 ML IV ×2 (08:34→12:09)
[2023-10-02] MEDS: Cefazolin 2 GM in 0.9% Normal Saline (100mL Bag) 100 ML IV (09:52)
--- NOTE | 2023-10-02 10:00 | HIP_PTH ---
PATHOLOGY RESULTS PATIENT: HUBERT DAVIS LOC: MS3 U#:[id number] AGE/SX: 88/F ROOM: [facility] [place] RE10/02/[address]: Dr. Hudson Miller MD : 1935 BED: 1 DIS: 10/04/2023 SPEC #: [id number] RECD: 10/03/23 07:32 STATUS: MELITON DAWN #: [id number] SEBASTIEN: 10/02/23 10:[address]: Hudson Miller DEPT: SURGICAL PATHOLOGY RECD BY: Dorinda Norton ENTERED: 10/03/23 07:32 SP TYPE: TOTAL HIP OTHR DR: DO Dr. 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 See comment. IRON:lexie 10/09/2023 COMMENT Trilineage hematopoiesis is noted. A few minute lymphoid aggregates are also noted, favor benign. MICROSCOPIC DESCRIPTION Slides are reviewed. GROSS DESCRIPTION Received is one container labeled with the patient's name and designated right femoral head. The specimen consists of a markedly deformed lujan femoral head measuring 4.5 x 3.5 x 3.0 cm. The articular surface displays prominent osteophyte formation, eburnation and bone erosion. Also present in the specimen container is a detached piece of bone consistent with portion of femoral neck measuring 3.5 x 3.0 x 1.5 cm. No soft tissue is identified. Manager Traffic sections are submitted in two cassettes after decalcification. / IRON:lexie 10/03/2023 TC:5 CPT: 28498, 38595
[2023-10-02] MEDS: dexAMETHasone 10 MG/ML Vial IV (10:23)
--- NOTE | 2023-10-02 10:50 | RAD_ITS ---
INDICATION: PAIN EXAMINATION/TECHNIQUE: X-RAY - XR Hip Unilateral with Pelvis when performed; 1 View COMPARISON: Prior study dated: 08/03/2023. FINDINGS: 5 fluoroscopic images of the right hip were obtained intraoperatively on a C-arm for total right hip arthroplasty. The exam was not performed for diagnostic purposes. The fluoroscopy time was 4.5 seconds. The radiation dose is 0.47 mGy. RAD/Hip 1 view with Pelvis IMPRESSION: Intraoperative exam as described above. Electronically Signed: Bill Stevenson MD at 18:37 EST ,
[2023-10-02] MEDS: JPS (Morphine 10mg/ml) OPERA.SITE (11:24)
[2023-10-02] MEDS: TRANEXAMIC ACID 2,000 MG, 0.9% Normal Saline (100mL Bag) 100 ML OPERA.SITE (11:26)
--- NOTE | 2023-10-02 12:06 | RAD_ITS ---
STUDY: X-RAY - PELVIS AND RIGHT HIP REASON FOR EXAM: Female, 88 years old. Post Op -- AP both hips on single willie/lateral of op hip PACU TECHNIQUE: 2 views of the pelvis and hip. COMPARISON: Comparison is made with prior examination dated August 03, 2023. FINDINGS: Moderate amount of fecal material is seen in the colon. Normal visualized soft tissue structures. The patient is status post right total hip replacement. There is good alignment. Marked degree of osteoarthritis of the left hip joint. RAD/Hip Min 2 Views (Portable) IMPRESSION: Status post right total hip replacement. There is good alignment. Postoperative soft tissue changes. Electronically Signed: Michael Persaud MD at 12:52 EST ,
[2023-10-02 13:07] LABS: Bedside Glucose 148 mg/dL (74-106)
[2023-10-02] MEDS: Lactated Ringers 1,000 ML 125 ML IV (13:29)
[2023-10-02] MEDS: Aspirin 81 MG TAB.CHEW PO (17:50)
[2023-10-02] MEDS: Ferrous Sulfate 325 MG Tablet PO (17:50)
[2023-10-02] MEDS: Colestipol 1 GM TABLET PO (17:50)
[2023-10-02] MEDS: Ensure Surgery 237 ML LIQUID PO (17:51)
[2023-10-02] MEDS: Cefazolin 1 GM/50 ML BAG IV (17:52)
--- NOTE | 2023-10-02 20:55 | PN.HOSP_ITS ---
Reason for Visit Reason for Visit: Diagnoses Encounter for other preprocedural examination (10/02/23) Subjective Subjective 88-year-old female history of CKD stage III, lupus, CAD, CHF, hypothyroidism, hypertension who presented to [facility] 10/02/2023 for right hip primary osteoarthritis and right minimally invasive direct anterior total hip replacement. Patient transferred to floor after surgery and hospitalist contacted for medical management. Patient sitting up in chair resting soundly, at bedside and reports she has been doing well, patient wakes up and reports she is tired but otherwise has no complaints. Objective Data Objective Data Vital Signs: Vital Signs Temp Pulse Resp BP Pulse Ox O2 Del Method O2 Flow Rate 97.7 F L 84 17 129/79 H 100 Room Air 4 10/02/23 17:56 10/02/23 17:56 10/02/23 17:56 10/02/23 17:56 10/02/23 17:56 10/02/23 17:56 10/02/23 13:00 Oxygen Flow Rate (L/min) 4 Oxygen Delivery Method Room Air Weight: 48 kg Body Mass Index (BMI) 20.0 Intake & Output: Intake and Output for Last 24 Hours 09/30/23 10/01/23 10/02/23 23:59 23:59 23:59 Intake Total 2011 Balance 2011 Lab / Micro Data Labs: Laboratory Results - last 24 hr 10/02/23 08:12: POC Glucose 80 10/02/23 12:49: POC Glucose 148 H Micro: Microbiology 09/24/23 15:08 Swab (Method) Nasal Screen MRSA/MSSA - Final Radiography Diagnostic Testing: Radiology Impression Hip/Pelvis X-Ray 10/02/23 10:50 IMPRESSION: Intraoperative exam as described above. Electronically Signed: Bill Stevenson MD at 18:37 EST , Hip X-Ray 10/02/23 12:06 IMPRESSION: Status post right total hip replacement. There is good alignment. Postoperative soft tissue changes. Electronically Signed: Michael Persaud MD at 12:52 EST , Physical Exam Narrative General: Sleeping comfortably in chair, wakes up and answers questions HEENT: Atraumatic, normocephalic Eyes: Anicteric, normal conjunctiva, extraocular movements grossly intact Neck: Supple Respiratory: Clear to auscultation bilaterally, normal respiratory effort Cardiovascular: Regular rate GI: Soft, nontender, nondistended Extremities: No edema Musculoskeletal: Moving all extremities Neuro: No overt focal neurological deficits Skin: No rashes appreciated Psych: Cooperative Assessment & Plan Assessment/Plan (1) Arthritis of right hip: (2) CHF (congestive heart failure): QUALIFIERS: Heart failure type: diastolic Heart failure chronicity: chronic Qualified Code(s): I50.32 - Chronic diastolic (congestive) heart failure (3) Essential (primary) hypertension: (4) Presence of stent in coronary artery: (5) Hypothyroidism: PLAN: Plan #R hip osteo -postop day 0 right minimally invasive direct anterior total hip replacement -On Ancef -Pain control -PT/OT -Management per primary # History of heart failure with preserved ejection fraction, not in acute exacerbation -Last echo 2022 with EF 50 to 55%, this notes diastolic function is indeterminate but has previously documented heart failure preserved ejection fraction -Continue home medications #Hypothyroidism -Continue Synthroid # Coronary artery disease with history of stenting -Patient on aspirin, has listed allergy to statins # Lupus -Continue hydroxychloroquine # CKD stage IIIb -Check a.m. labs #DVT ppx: Patient is on aspirin twice daily Tianna Mooney MD Charges/Coding Visit Charges Inpatient E&M: 71161 Subs Hosp L2
[2023-10-02] MEDS: PIMECROLIMUS 30 GM CREAM..G. TOPICAL (21:23)
[2023-10-02] MEDS: Senna/Docusate Sodium 1 Tablet 2 TABLET PO (21:23)
[2023-10-03] MEDS: Cefazolin 1 GM/50 ML BAG IV (01:02)
[2023-10-03 01:20] VITALS: BP 131/71; PULSE 81; RESP 16; TEMP 36.4; O2SAT 100
[2023-10-03 05:19] VITALS: BP 131/68; PULSE 74; RESP 16; TEMP 36.4; O2SAT 99
[2023-10-03] MEDS: Acetaminophen 500 MG Tablet 1000 MG PO ×3 (05:23→21:01)
[2023-10-03] MEDS: Levothyroxine 25 MCG TABLET PO (05:23)
[2023-10-03 08:11] LABS: Hematocrit 26.3 % (37-47); Hemoglobin 8.6 g/dL (12.0-15.0); Mean Corp Hgb Conc 32.7 g/dL (32-36); Mean Corpuscular Hgb 30.3 pg (27.0-32.0); Mean Corpuscular Volume 92.6 fL (81-99); Mean Platelet Vol. 9.3 fl (6.2-12.0); Platelet Count 168 K/mm3 (150-450); RBC Distribution Width CV 13.3 % (11.6-14.6); RBC Distribution Width SD 44.9 fl (35.1-43.9); Red Blood Count 2.84 M/mm3 (4.2-5.4); White Blood Count 7.8 K/mm3 (4.4-11.0)
[2023-10-03 08:42] LABS: Anion Gap 3 (5-15); BUN 34 mg/dL (7-18); BUN/Creat Ratio 26.6 RATIO (10-20); Calcium,Total 8.9 mg/dL (8.5-10.1); Chloride 100 mmol/L (98-107); Creatinine, Serum 1.28 mg/dL (0.55-1.02); EST Glomerular Filtration Rate 42 mL/min (>60); Est Glom Filt Rate - Afr Amer 51 mL/min (>60); Estimated Creatinine Clearance 23.37 ml/min; Glucose 116 mg/dL (74-106); Potassium 5.5 mmol/L (3.5-5.1); Sodium Level 129 mmol/L (136-145)
[2023-10-03] MEDS: Folic Acid 1 MG Tablet PO (09:02)
[2023-10-03] MEDS: Calcium (Elemental) 500 MG Tablet PO (09:03)
[2023-10-03] MEDS: Aspirin 81 MG TAB.CHEW PO ×2 (09:03→16:58)
[2023-10-03] MEDS: Hydroxychloroquine 200 MG Tablet PO (09:03)
[2023-10-03] MEDS: Cholecalciferol (VIT D3) 25 MCG TABLET (1,000 UNITS) PO (09:03)
[2023-10-03 10:17] VITALS: BP 125/70; PULSE 89; RESP 16; TEMP 36.8; O2SAT 98
[2023-10-03] MEDS: Losartan Potassium 25 MG Tablet PO (10:19)
[2023-10-03] MEDS: Furosemide 20 MG Tablet PO (10:19)
[2023-10-03] MEDS: Famotidine 20 MG Tablet PO (10:19)
--- NOTE | 2023-10-03 10:26 | PCM.PN.ORT ---
Subjective Subjective The patient was sitting in bed upon examination. Patient denies any chest pain, shortness of breath, dizziness, lightheadedness, nausea or vomiting, or calf pain. Patient did have some nausea yesterday that resolved. Pain is controlled on medications. No adverse overnight events. Patient has been working with therapy in the hospital. Patient is concerned with discharge home as she is uncertain that her can help manage and take care of her postoperatively. Patient did have a risk assessment prediction tool score of 5/12. Physical therapy is recommending additional therapy upon discharge. Patient does continue to complain of weakness in the right lower extremity. She has been dealing with this problem preoperatively for approximately 1 year. It did require trip to the emergency room. 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 Patient was not very active and concern for deconditioning affecting her postoperatively. She will require further assistance with therapy regaining strength and mobility. Objective Data Objective Data Vital Signs: Vital Signs Temp Pulse Resp BP Pulse Ox O2 Del Method O2 Flow Rate 98.2 F 89 16 125/70 H 98 Room Air 4 10/03/23 10:17 10/03/23 10:17 10/03/23 10:17 10/03/23 10:17 10/03/23 10:17 10/03/23 10:17 10/02/23 13:00 Oxygen Flow Rate (L/min) 4 Oxygen Delivery Method Room Air Weight: 48 kg Body Mass Index (BMI) 20.0 Intake & Output: Intake and Output for Last 24 Hours 10/01/23 10/02/23 10/03/23 23:59 23:59 23:59 Intake Total 2011 1650 / 1650 Balance 2011 1650 / 1650 Lab / Micro Data 10/03/23 07:04 10/03/23 07:04 Labs: Laboratory Results - last 24 hr 10/02/23 12:49: POC Glucose 148 H 10/03/23 07:04: WBC 7.8, RBC 2.84 L, Hgb 8.6 L, Hct 26.3 L, MCV 92.6, MCH 30.3, MCHC 32.7, RDW Std Deviation 44.9 H, RDW Coeff of Young 13.3, Plt Count 168, MPV 9.3, Sodium 129 L, Potassium 5.5 H, Chloride 100, Carbon Dioxide 26.0, Anion Gap 3 L, BUN 34 H, Creatinine 1.28 H, Estim Creat Clear Calc 23.37, Est GFR (MDRD) Af Amer 51 L, Est GFR (MDRD) Non-Af 42 L, BUN/Creatinine Ratio 26.6 H, Glucose 116 H, Calcium 8.9 Micro: Microbiology 09/24/23 15:08 Swab (Method) Nasal Screen MRSA/MSSA - Final Radiography Diagnostic Testing: Radiology Impression Hip/Pelvis X-Ray 10/02/23 10:50 IMPRESSION: Intraoperative exam as described above. Electronically Signed: Bill Stevenson MD at 18:37 EST , Hip X-Ray 10/02/23 12:06 IMPRESSION: Status post right total hip replacement. There is good alignment. Postoperative soft tissue changes. Electronically Signed: Michael Persaud MD at 12:52 EST , Physical Exam Narrative Vital signs stable and afebrile. SCDs and [place] hose are in place bilaterally Right hip is soft and supple Patient is able to plantarflex and dorsiflex actively. Sensation is intact to light touch to saphenous, sural, superficial and deep peroneal, and tibial distribution. Trace drainage over the proximal one third of the Mepilex dressing with the remaining dressing clean dry and intact. Negative Homans bilaterally, negative signs and symptoms of DVT. Weakness associated with trying to perform straight leg raise on the right secondary to pain Const alert, oriented x3 and no apparent distress Assessment & Plan Assessment/Plan (1) Status post total hip replacement, right: PLAN: 1. S/P direct anterior right total hip arthroplasty POD #1 2. Continue Pain Medications: Tylenol and tramadol. Patient has been on chronic tramadol with Dr. Laws with pain management. Pain management would like orthopedics to manage postoperative pain control for the first 6 weeks. 3. DVT Prophylaxis: Take 81 mg aspirin twice daily for 4 weeks postoperatively for DVT prophylaxis. Patient denies past history of DVT or pulmonary embolism 4. PT/OT: Weightbearing as tolerated with walker with anterior hip precautions. Appreciate further recommendations from physical therapy for safe and appropriate discharge planning 5. H & H: 8.6/26.3, asymptomatic. Acute on chronic anemia in which patient is currently on ferrous sulfate and folic acid. Patient over the past 1 year has been chronically low with her hemoglobin however has not been treated with primary care physician. Preoperatively her hemoglobin/hematocrit was 10.7/32.7. She currently denies any dizziness or lightheadedness. Overall blood pressures appear stable. We will continue to monitor with repeat lab work tomorrow. 6. Encouraged Incentive Spirometry 7. Continue postoperative medical management per medicine: Case was discussed with medicine and we will continue to monitor hemoglobin. 8. Disposition: Patient is not appropriate and ready for discharge at this time. I would like physical therapy assessment for safe and appropriate discharge planning. There is concerned with patient going home as her is not able to care for her. There is concern for safety with increased risk of fall. She has been having chronic hip problems in which she has had deconditioning prior to surgery. She had a risk assessment prediction tool score of 5/12 which does put her at greater risk for requiring group home facility upon discharge. Case management is also currently involved with appropriate discharge planning. I would also like to continue to follow her hemoglobin as she is at a risk for possible transfusion as she does have underlying cardiac history. We will repeat CBC tomorrow. Patient will continue with above pain medications and DVT prophylaxis. I have reviewed the [place] Automated Rx Reporting System (OARRS) report for this patient for refill pattern and other prescriber involvement as part of the appropriate surveillance for the provision of acute and chronic controlled medications. The report was requested and reviewed on the date of this entry and was considered in the prescribing process. This dictation was created using voice recognition software. Phonetic and/or grammatical errors may exist.
--- NOTE | 2023-10-03 10:50 | CASEMGMT ---
Discharge Planning A list of?SNF providers including quality and resource use data and consistent with the patient's preferred geographic region, medical needs, and insurance network was created in [employer]Port Guide.? This list was provided to the SW. Carolina Mead Discharge Planning Asst.
--- NOTE | 2023-10-03 11:55 | CASEMGMT ---
Addendum entered by Bessy Kamara 10/03/23 15:48: Precert has been obtained for pt to admit to TCU. Pt can admit tomorrow. Pt notified and appreciative of information. Plan: TCU, when medically ready ANDREW Ocampo Addendum entered by Bessy Kamara 10/03/23 13:49: Social Work TCU is able to accept pt. Pt notified and agreeable to dc plan. Precert to be started at this time. Plan: TCU, pending precert ANDREW Ocampo Original Note: Social Work SW?to room to meet with patient for initial transition planning/care coordination?assessment.?SW?introduced self and role at [facility].? Pt voices understanding and consents to?assessment.? Pt is A/Ox4 and answers all questions appropriately, pt spouse present during assessment.??Care providers, pharmacy, and demographics verified. PCP: Dr. Boyd Specialists: Angela, orthopedic [facility] , cardiology [facility]erred [facility]acy: [facility] Insurance: [employer] Medicare Prescription Benefit:?yes LNOK: Pt's spouse Bipin Dyson Living Arrangements: Pt lives at home with her spouse in a Tri level home with 6 steps to enter and 6 steps to bottom floor and 6 steps to second floor. Pt has been having more difficulty with ADLS due to hip pain and spouse has been assisting recently with ADLs and IADLs. Transportation:? Pt's spouse provides needed transportation. DME: ? shower chair, grab bars in shower, high rise toilet, walker x2 HHC/SNF: none in the past PLAN: Pt feels she will need short term rehab prior to returning home with spouse. Therapy is recommending SNF. A list of SNF providers including quality and resource use data and consistent with the patient?s preferred geographic region, medical needs, and insurance network were provided from the [employer]Port Guide. Pt preferred provider is [facility] TCU. Referral sent to TCU. SW will await determination of acceptance. ANDREW Ocampo
[2023-10-03] MEDS: Ferrous Sulfate 325 MG Tablet PO ×2 (11:56→16:57)
[2023-10-03 13:38] VITALS: BP 102/54; PULSE 100; RESP 16; TEMP 36.8; O2SAT 100
--- NOTE | 2023-10-03 16:21 | CASEMGMT ---
Met with patient to complete DIALLO form. DIALLO form explained to?patient who voiced understanding and signed form. Original form placed in pt?s chart and copy provided to?patient. Carolina Mead, Discharge Planning Asst
[2023-10-03] MEDS: Colestipol 1 GM TABLET PO (16:58)
[2023-10-03] MEDS: Ensure Surgery 237 ML LIQUID PO (16:59)
--- NOTE | 2023-10-03 17:01 | PCM.PN.HOSP ---
Reason for Visit Reason for Visit: Diagnoses Hypothyroidism, unspecified (10/02/23) Essential (primary) hypertension (10/02/23) Chronic diastolic (congestive) heart failure (10/02/23) Unilateral primary osteoarthritis, right hip (10/02/23) Encounter for other preprocedural examination (10/02/23) Presence of coronary angioplasty implant and graft (10/02/23) Presence of right artificial hip joint (10/02/23) Subjective Subjective Patient was seen and examined today, I had a lengthy conversation with the patient and her . It appears the patient will need to go to a skilled care facility for short-term rehab services due to debility following her surgery. Patient is anemic today, hemoglobin was 8.6-I do not believe the patient needs blood transfusion at this time. Objective Data Objective Data Vital Signs: Vital Signs Temp Pulse Resp BP Pulse Ox O2 Del Method O2 Flow Rate 98.2 F 100 16 102/54 L 100 Room Air 4 10/03/23 13:38 10/03/23 13:38 10/03/23 13:38 10/03/23 13:38 10/03/23 13:38 10/03/23 13:38 10/02/23 13:00 Oxygen Flow Rate (L/min) 4 Oxygen Delivery Method Room Air Weight: 48 kg Body Mass Index (BMI) 20.0 Intake & Output: Intake and Output for Last 24 Hours 10/01/23 10/02/23 10/03/23 23:59 23:59 23:59 Intake Total 2011 Balance 2011 Lab / Micro Data 10/03/23 07:04 10/03/23 07:04 Labs: Laboratory Results - last 24 hr 10/03/23 07:04: WBC 7.8, RBC 2.84 L, Hgb 8.6 L, Hct 26.3 L, MCV 92.6, MCH 30.3, MCHC 32.7, RDW Std Deviation 44.9 H, RDW Coeff of Young 13.3, Plt Count 168, MPV 9.3, Sodium 129 L, Potassium 5.5 H, Chloride 100, Carbon Dioxide 26.0, Anion Gap 3 L, BUN 34 H, Creatinine 1.28 H, Estim Creat Clear Calc 23.37, Est GFR (MDRD) Af Amer 51 L, Est GFR (MDRD) Non-Af 42 L, BUN/Creatinine Ratio 26.6 H, Glucose 116 H, Calcium 8.9 Micro: Microbiology 09/24/23 15:08 Swab (Method) Nasal Screen MRSA/MSSA - Final Radiography Diagnostic Testing: Radiology Impression Hip/Pelvis X-Ray 10/02/23 10:50 IMPRESSION: Intraoperative exam as described above. Electronically Signed: Bill Stevenson MD at 18:37 EST , Physical Exam Const alert, oriented x3 and no apparent distress Constitutional Narrative: Appears her stated age General Appearance: cooperative, well kempt and well developed Orientation / Consciousness: awake, oriented to person, oriented to place and oriented to time HEENT normocephalic, head/scalp atraumatic and moist oral mucous membranes Eyes PERRL, EOMs intact bilaterally and conjunctivae normal Neck supple, no JVD, thyroid normal and no carotid bruits General: trachea midline Resp normal respiratory effort, no retractions, no use of accessory muscles and clear to auscultation bilaterally Auscultation: Negative for rales, rhonchi or wheezes Cardio regular rate, regular rhythm, S1 normal heart sound, S2 normal heart sound, no murmurs, no rub and no gallops GI normal to inspection, nondistended, normoactive bowel sounds, soft to palpation, non-tender and non-distended Extremity no clubbing, cyanosis or edema Skin no rashes or lesions noted General Skin Exam: no breakdown Neuro oriented x3, CN's II-XII intact bilaterally, moves all extremities and no sensory deficits noted Sensorium / Orientation: awake, alert, oriented to person, oriented to place and oriented to time Speech: speech normal Psych affect normal Assessment & Plan Assessment/Plan (1) Status post total hip replacement, right: PLAN: Plan 1. Coronary artery disease-stable at this time-patient will remain on her present medications #2 chronic kidney disease stage IIIb-complicates care, medical course, recovery, and prognosis, labs will be monitored as deemed necessary #3 acute blood loss anemia on a backdrop of chronic anemia-secondary to expected blood loss from right hip replacement-hemoglobin will be monitored, no blood transfusion is needed at this time #4 right hip osteoarthritis-postop day #1 right total hip replacement-PT and OT will see the patient, she will need short-term placement in a [facility] facility at the time of discharge from the hospital. Total clinical time spent by myself addressing the patient's medical issues, reviewing all of his data, and collaborating with patient's care team: 25 minutes Charges/Coding Visit Charges Inpatient E&M: [id number] [facility] L1
[2023-10-03 18:11] VITALS: BP 133/71; PULSE 99; RESP 18; TEMP 37.2; O2SAT 98
[2023-10-03 20:56] VITALS: BP 118/56; PULSE 112; RESP 20; TEMP 36.7; O2SAT 97
[2023-10-03] MEDS: traMADol 50 MG Tablet PO (21:00)
[2023-10-03] MEDS: Senna/Docusate Sodium 1 Tablet 2 TABLET PO (21:01)
[2023-10-03] MEDS: PIMECROLIMUS 30 GM CREAM..G. TOPICAL (21:01)
[2023-10-03] MEDS: 0.9% Saline Lock 10 ML Syringe IV (21:02)
[2023-10-04 01:28] VITALS: PULSE 85; RESP 16; O2SAT 97
[2023-10-04 03:46] VITALS: PULSE 81; O2SAT 96
[2023-10-04 05:01] VITALS: BP 135/79; PULSE 98; RESP 18; TEMP 36.5; O2SAT 98
[2023-10-04] MEDS: Acetaminophen 500 MG Tablet 1000 MG PO ×2 (05:07→14:00)
[2023-10-04] MEDS: Levothyroxine 25 MCG TABLET PO (05:08)
[2023-10-04 06:27] LABS: Hematocrit 24.4 % (37-47); Hemoglobin 8.1 g/dL (12.0-15.0); Mean Corp Hgb Conc 33.2 g/dL (32-36); Mean Corpuscular Hgb 30.1 pg (27.0-32.0); Mean Corpuscular Volume 90.7 fL (81-99); Mean Platelet Vol. 9.4 fl (6.2-12.0); Platelet Count 165 K/mm3 (150-450); RBC Distribution Width CV 13.4 % (11.6-14.6); RBC Distribution Width SD 43.8 fl (35.1-43.9); Red Blood Count 2.69 M/mm3 (4.2-5.4); White Blood Count 7.3 K/mm3 (4.4-11.0)
[2023-10-04 07:43] VITALS: BP 125/69; PULSE 85; RESP 18; TEMP 37.1; O2SAT 99
[2023-10-04] MEDS: Furosemide 20 MG Tablet PO (07:51)
[2023-10-04] MEDS: Losartan Potassium 25 MG Tablet PO (07:51)
[2023-10-04] MEDS: Hydroxychloroquine 200 MG Tablet PO (07:51)
[2023-10-04] MEDS: Folic Acid 1 MG Tablet PO (07:52)
[2023-10-04] MEDS: Aspirin 81 MG TAB.CHEW PO (07:52)
[2023-10-04] MEDS: Senna/Docusate Sodium 1 Tablet 2 TABLET PO (07:52)
[2023-10-04] MEDS: Calcium (Elemental) 500 MG Tablet PO (07:52)
[2023-10-04] MEDS: CARBOXYMETHYLCELLULOSE SODIUM 1 DRP DROPS 2 DRP OPHTHALMIC (07:53)
[2023-10-04] MEDS: Cholecalciferol (VIT D3) 25 MCG TABLET (1,000 UNITS) PO (07:53)
[2023-10-04] MEDS: Ensure Surgery 237 ML LIQUID PO ×2 (07:53→11:56)
[2023-10-04] MEDS: Famotidine 20 MG Tablet PO (07:53)
--- NOTE | 2023-10-04 11:23 | TREXTCAR_ITS ---
Diet Diet Order/Speech Therapy: 10/02/23 17:48 Diet: Regular - General Is pt able to select menu?: Yes Routine Orders/Code Status Routine Lab Work: CBC (in one week) Wound(s) RIGHT ANTERIOR HIP: Wound Type: dressing to be changed in 5 days Therapies Weight Bearing: Weight bearing as tolerated Physical Therapy: Eval and Treat Occupational Therapy: Eval and Treat Problem/Diagnosis (1) Status post total hip replacement, right: Status: Acute Code(s): Z96.641 - Presence of right artificial hip joint Plan 1. Coronary artery disease-stable at this time-patient will remain on her present medications #2 chronic kidney disease stage IIIb-complicates care, medical course, recovery, and prognosis, labs will be monitored as deemed necessary #3 acute blood loss anemia on a backdrop of chronic anemia-secondary to expected blood loss from right hip replacement-hemoglobin will be monitored, no blood transfusion is needed at this time #4 right hip osteoarthritis-postop day #1 right total hip replacement-PT and OT will see the patient, she will need short-term placement in a halfway facility at the time of discharge from the hospital. Total clinical time spent by myself addressing the patient's medical issues, reviewing all of his data, and collaborating with patient's care team: 25 minutes Allergies/Procedures Done in Hospital Allergies nitrofurantoin [From Macrobid] Allergy (Intermediate, Verified 10/02/23 07:59) thrush latex Allergy (Mild, Verified 10/02/23 07:59) Rash Penicillins [PCN] Allergy (Verified 10/02/23 07:59) not sure Rqjqgnk-LZN-DgJ Reductase Inhibitor [Bwursjd-Nkp-Xqb Reductase Inhibitor] Allergy (Verified 10/02/23 07:59) All blood cells low amoxicillin [From Augmentin] Adverse Reaction (Severe, Verified 10/02/23 07:59) syncope clavulanic acid [From Augmentin] Adverse Reaction (Severe, Verified 10/02/23 07:59) syncope carvedilol [From Coreg] Adverse Reaction (Intermediate, Verified 10/02/23 07:59) Very fatigued on smallest dose clopidogrel [From Plavix] Adverse Reaction (Intermediate, Verified 10/02/23 07:59) Severe diarrhea doxycycline Adverse Reaction (Verified 10/02/23 07:59) GI symptoms, emesis Sulfa (Sulfonamide Antibiotics) Adverse Reaction (Verified 10/02/23 07:59) Nausea/Vom/Diarrhea Procedures: - (right hip robotic assisted replacement 10/02/23) Type of Care/Length of Stay Estimated LOS: Convalescent Care Less Than 30 days Type of Care Needed: Skilled Rehab Potential: Good Prognosis: Good Additional Orders/Day of Discharge H&P will serve as current which was dated: 10/02/23 Day of Discharge: 10/04/23 Discharge Plan Admission Admit Date/Time: 10/02/23 15:47 Primary Reason for Your Visit: right hip replacement Attending Provider: Hudson Miller Primary Care Provider: Dori Boyd Consulting Providers: Tianna Mooney; Hill Clancy Instructions Additional Instructions / Restrictions: Patient may shower; remove dressing in 5 days-may leave open or apply fresh b andage then Discharge Orders/Prescriptions Prescriptions: New acetaminophen 500 mg Tablet 1,000 mg PO Q8 Qty: 1 0RF famotidine 20 mg Tablet 20 mg PO DAILY Qty: 0 0RF aspirin 81 mg Tablet,Chewable 81 mg PO BIDCM Qty: 1 0RF Ensure Surgery 0.08-1.4 gram-kcal/mL Liquid 237 ml PO TIDCM Qty: 0 0RF tramadol 50 mg tablet 50 mg PO Q6H PRN (Reason: pain) 3 Days Qty: 10 0RF Continued colesevelam [WelChol] 625 mg tablet 1,250 mg PO DINNER Rx Instructions: 1,250 mg orally daily i; calcium carbonate 500 mg calcium (1,250 mg) tablet 500 mg PO DAILY artifi.tears(hypromellose)(PF) 1.7 % drops with applicator 2 drp ophthalmic (eye) .AM hydroxychloroquine 200 mg tablet 200 mg PO DAILY Patient Comments: TAKE 1 TABLET DAILY levothyroxine 25 MCG tablet 25 mcg PO MOTUWETHFR Patient Comments: thyroid cholecalciferol (vitamin D3) 25 mcg (1,000 unit) tablet 1,000 unit PO DAILY Patient Comments: supplement levothyroxine 50 mcg Capsule 50 mcg PO SUSA tramadol 50 mg tablet 25 - 50 mg PO TID PRN (Reason: Pain) Patient Comments: TAKE 1/2 TO 1 TABLET BY MOUTH 3 TIMES A DAY NEEDED FOR PAIN pimecrolimus 1 % cream 1 applic TOPICAL QHS ferrous sulfate [iron] 325 mg (65 mg iron) tablet 325 mg PO BID folic acid 1 mg tablet 1 mg PO DAILY furosemide 40 mg tablet 20 mg PO DAILY Qty: 90 3RF losartan 25 mg tablet 25 mg PO DAILY Qty: 90 3RF Discontinued coenzyme Q10 100 mg capsule 100 mg PO Q OTHER DAY vitamin B complex [B Complex-Vitamin B12] Tablet 1 tab PO DAILY hydrocodone-acetaminophen 5-325 mg tablet 1 tab PO Q4H PRN PRN (Reason: Pain) 3 Days Qty: 12 0RF aspirin [Adult Low Dose Aspirin] 81 mg tablet,delayed release (DR/EC) 81 mg PO DAILY Referrals / Follow Up: Dori Boyd DO [Primary Care Provider] - Hudson Miller MD [Med Staff - Active Staff] - See Referral Note (in two weeks) Disposition Disposition (needs filled in before D/C Order can be placed): Senior Living Facility
[2023-10-04] MEDS: 0.9% Saline Lock 10 ML Syringe IV (11:55)
[2023-10-04] MEDS: Sodium Ferric Gluconat/Sucrose 250 MG in 0.9% Normal Saline (250mL Bag) 250 ML 135 MG IV (11:55)
[2023-10-04] MEDS: Ferrous Sulfate 325 MG Tablet PO (11:56)
--- NOTE | 2023-10-04 11:56 | CASEMGMT ---
Social Work Per physician, pt is ready for discharge today. Discharge orders faxed to TCU and Cammie updated that once infusion is complete pt will be ready for dc. SW met with pt and spouse and updated on discharge to TCU today and both parties agreeable. RN notified. Disposition: TCU, skilled level of care ANDREW Ocampo
--- NOTE | 2023-10-04 12:08 | PCM.PN.ORT ---
Subjective Subjective The patient was sitting in bed upon examination with her present. Patient denies any chest pain, shortness of breath, dizziness, lightheadedness, nausea or vomiting, or calf pain. Pain is controlled on medications. No adverse overnight events. Medicine is currently on board and patient is getting venofer. Patient has had drop in her hemoglobin in which she is currently taking oral ferrous sulfate. She has had approval to go to the transitional care unit at [facility]. The plan is for her to be discharged this afternoon. Medicine has already done discharge planning and can go to the TCU after the infusion is done. Patient has no significant complaints today. Her pain is adequately controlled. Her vitals have been stable. Objective Data Objective Data Vital Signs: Vital Signs Temp Pulse Resp BP Pulse Ox O2 Del Method O2 Flow Rate 98.8 F 85 18 125/69 H 99 Room Air 4 10/04/23 07:43 10/04/23 07:43 10/04/23 07:43 10/04/23 07:43 10/04/23 07:43 10/04/23 07:43 10/02/23 13:00 Oxygen Flow Rate (L/min) 4 Oxygen Delivery Method Room Air Weight: 48 kg Body Mass Index (BMI) 20.0 Intake & Output: Intake and Output for Last 24 Hours 10/02/23 10/03/23 10/04/23 23:59 23:59 23:59 Intake Total 2011 2550 / 2550 Balance 2011 2550 / 2550 Lab / Micro Data 10/04/23 05:55 10/03/23 07:04 Labs: Laboratory Results - last 24 hr 10/04/23 05:55: WBC 7.3, RBC 2.69 L, Hgb 8.1 L, Hct 24.4 L, MCV 90.7, MCH 30.1, MCHC 33.2, RDW Std Deviation 43.8, RDW Coeff of Young 13.4, Plt Count 165, MPV 9.4 Micro: Microbiology 09/24/23 15:08 Swab (Method) Nasal Screen MRSA/MSSA - Final Physical Exam Narrative Vital signs stable and afebrile. Right hip is soft and supple Patient is able to plantarflex and dorsiflex actively. Sensation is intact to light touch to saphenous, sural, superficial and deep peroneal, and tibial distribution. Mild drainage over the proximal one third which has been stable with the Mepilex dressing. Remainder of the dressing is clean dry and intact. Negative Homans bilaterally, negative signs and symptoms of DVT. Const alert, oriented x3 and no apparent distress Assessment & Plan Assessment/Plan (1) Status post total hip replacement, right: PLAN: 1. S/P direct anterior right total hip arthroplasty POD #2 2. Continue Pain Medications: Tylenol and tramadol. Patient has been on chronic tramadol with Dr. Laws with pain management. Pain management would like orthopedics to manage postoperative pain control for the first 6 weeks. 3. DVT Prophylaxis: Take 81 mg aspirin twice daily for 4 weeks postoperatively for DVT prophylaxis. Patient denies past history of DVT or pulmonary embolism 4. PT/OT: Weightbearing as tolerated with walker with anterior hip precautions. Appreciate further recommendations from physical therapy for safe and appropriate discharge planning 5. H & H: 8.24.4, asymptomatic. Acute on chronic anemia in which patient is currently on ferrous sulfate and folic acid. Patient over the past 1 year has been chronically low with her hemoglobin however has not been treated with primary care physician. Preoperatively her hemoglobin/hematocrit was 10.7/32.7. She currently denies any dizziness or lightheadedness. Overall blood pressures appear stable. Medicine has placed order for Venofer and once infusion is done can be discharged. Recommend follow-up with the primary care physician upon discharge from the hospital 6. Encouraged Incentive Spirometry 7. Continue postoperative medical management per medicine: Case was discussed with medicine and we will continue to monitor hemoglobin. 8. Disposition: Patient has been approved for discharge to the transitional care unit at [facility]. Her vitals have been stable and medicine is currently giving her Venofer for her anemia. They will recheck blood work next week. Recommend once she is discharged from the transitional care unit she follow-up with her primary care physician for further treatment. Patient's pain has been adequately controlled. She will continue with aspirin for DVT prophylaxis. She is weightbearing as tolerated. The dressing will remain on for 5 days postoperatively. She can shower with that dressing. Once the dressing is removed she can still shower and only use gentle soap and water over the incision. Do not place any ointments, salves, topical over the incision for 6 weeks postoperatively. She has scheduled 2-week follow-up with [facility]. She will require suture removal and x-rays. All questions were answered to the patient and her . I have reviewed the [place] Automated Rx Reporting System (OARRS) report for this patient for refill pattern and other prescriber involvement as part of the appropriate surveillance for the provision of acute and chronic controlled medications. The report was requested and reviewed on the date of this entry and was considered in the prescribing process. This dictation was created using voice recognition software. Phonetic and/or grammatical errors may exist.
--- NOTE | 2023-10-04 12:15 | DCINST_ITS ---
Discharge Instructions Diet Discharge Diet: No restrictions Activity Discharge Activity: May Not Drive (No driving for 6 weeks postoperatively. Must also be off all narcotics and able to walk 100 feet without the use of cane or walker.) Ice area for (Minutes): 20 (Every 1-2 hours while awake[address] barrier between ice and skin.) Weight Bearing Status: Weight bearing as tolerated (With walker) Keep extremity elevated above heart level: Operative Extremity Additional Activity Instructions:: Follow [facility] Post-op Instructions. Once postoperative dressing has been removed only use gentle soap and water over the incision. Do not use any ointments, Neosporin, salves, alcohol pads over the incision for 6 weeks postoperatively. Do not submerge underwater for 6 weeks postoperatively. Wear elastic stockings for 2 weeks. Do NOT use alcohol with narcotic pain medication. Do NOT make important decisions while taking narcotic medication. If you have problems with taking your medication (rash, itching, nausea, etc.) call the office at once. Dressing / Incision Call your doctor if your incision/area has: Continuous Slow Oozing, Sudden Increased Bleeding, Increased Pain/ Swelling, Increased Redness and Foul Smelling Discharge Call your doctor if you observe: Fever of 101 or Higher, Shortness of breath, Chest pain, Calf discomfort and Uncontrolled pain Remove Dressing in: 3 days (Okay to remove dressing on October 07, 2023) Additional Dressing/Incision Instructions:: Follow [facility] Post-op Instructions. Once postoperative dressing has been removed, only use gentle soap and water over the incision. Do not use any ointments, Neosporin, salves, alcohol pads over the incision for 6 weeks postoperatively. Do not submerge underwater for 6 weeks postoperatively. Continue with [place] hose/elastic stockings for 2 weeks postoperatively. May remove at nighttime but needs to be placed back on the leg during the day. Do NOT use alcohol with narcotic pain medication. Do NOT make important decisions while taking narcotic medication. If you have problems with taking your medication (rash, itching, nausea, etc.) call the office at once. Follow Up Care Test Results: Test results from this visit will be discussed in further detail at your follow- up appointment, if applicable. Discharge Plan Admission Admit Date/Time: 10/02/23 15:47 Primary Reason for Your Visit: right hip replacement Attending Provider: Hudson Miller Primary Care Provider: Dori Boyd Consulting Providers: Tianna Mooney; Hill Clancy Instructions Additional Instructions / Restrictions: Patient can shower with current dressing. Dressing will be removed on October 07, 2023. Once dressing is removed only use gentle soap and water over the incision. Do not place any tape or topical ointments over the incision. [place] hose x 2 weeks Discharge Orders/Prescriptions Prescriptions: New acetaminophen 500 mg Tablet 1,000 mg PO Q8 Qty: 1 0RF famotidine 20 mg Tablet 20 mg PO DAILY Qty: 0 0RF aspirin 81 mg Tablet,Chewable 81 mg PO BIDCM Qty: 1 0RF Ensure Surgery 0.08-1.4 gram-kcal/mL Liquid 237 ml PO TIDCM Qty: 0 0RF tramadol 50 mg tablet 50 mg PO Q6H PRN (Reason: pain) 3 Days Qty: 10 0RF Continued colesevelam [WelChol] 625 mg tablet 1,250 mg PO DINNER Rx Instructions: 1,250 mg orally daily i; calcium carbonate 500 mg calcium (1,250 mg) tablet 500 mg PO DAILY artifi.tears(hypromellose)(PF) 1.7 % drops with applicator 2 drp ophthalmic (eye) .AM hydroxychloroquine 200 mg tablet 200 mg PO DAILY Patient Comments: TAKE 1 TABLET DAILY levothyroxine 25 MCG tablet 25 mcg PO MOTUWETHFR Patient Comments: thyroid cholecalciferol (vitamin D3) 25 mcg (1,000 unit) tablet 1,000 unit PO DAILY Patient Comments: supplement levothyroxine 50 mcg Capsule 50 mcg PO SUSA tramadol 50 mg tablet 25 - 50 mg PO TID PRN (Reason: Pain) Patient Comments: TAKE 1/2 TO 1 TABLET BY MOUTH 3 TIMES A DAY NEEDED FOR PAIN pimecrolimus 1 % cream 1 applic TOPICAL QHS ferrous sulfate [iron] 325 mg (65 mg iron) tablet 325 mg PO BID folic acid 1 mg tablet 1 mg PO DAILY furosemide 40 mg tablet 20 mg PO DAILY Qty: 90 3RF losartan 25 mg tablet 25 mg PO DAILY Qty: 90 3RF Discontinued coenzyme Q10 100 mg capsule 100 mg PO Q OTHER DAY vitamin B complex [B Complex-Vitamin B12] Tablet 1 tab PO DAILY hydrocodone-acetaminophen 5-325 mg tablet 1 tab PO Q4H PRN PRN (Reason: Pain) 3 Days Qty: 12 0RF aspirin [Adult Low Dose Aspirin] 81 mg tablet,delayed release (DR/EC) 81 mg PO DAILY Referrals / Follow Up: Dori Boyd DO [Primary Care Provider] - Hudson Miller MD [Med Staff - Active Staff] - See Referral Note (in two weeks) Jim Smalls PA-C [Med Staff - Adv Practice Prof] - 10/17/23 2:00 pm Disposition Disposition (needs filled in before D/C Order can be placed): Care Home Facility
--- NOTE | 2023-10-04 13:17 | PHA.DC.MR.R ---
Pharmacy [place] Med Reconciliation Pharmacy Service has performed discharge medication reconciliation for this patient upon transfer to TCU The patient's discharge medication list was reviewed for discrepancies and discrepancies were resolved. Medications at Discharge Home Medications levothyroxine 25 mcg tablet 25 mcg PO MOTUWETHFR thyroid 12/13/15 colesevelam 625 mg tablet (WelChol) 1,250 mg PO DINNER diabetes 12/15/19 cholecalciferol (vitamin D3) 25 mcg (1,000 unit) tablet 1,000 unit PO DAILY supplement 08/24/20 calcium carbonate 500 mg calcium (1,250 mg) tablet 500 mg PO DAILY supplement 06/15/22 artifi.tears(hypromellose)(PF) 1.7 % eye drops with applicator 2 drp ophthalmic (eye) .AM eye health 08/09/22 levothyroxine 50 mcg capsule 50 mcg PO SUSA thyroid 02/20/23 tramadol 50 mg tablet 25 - 50 mg PO TID PRN Pain 02/25/23 furosemide 40 mg tablet 20 mg (1/2 x 40 mg) PO DAILY Please don't refill until pt calls: she has GOBS. #90 tabs 06/28/23 hydroxychloroquine 200 mg tablet 200 mg PO DAILY 07/22/23 pimecrolimus 1 % topical cream 1 applic topical QHS lupus of the skin 08/14/23 ferrous sulfate 325 mg (65 mg iron) tablet (iron) 325 mg PO BID 09/20/23 folic acid 1 mg tablet 1 mg PO DAILY 09/20/23 losartan 25 mg tablet 25 mg PO DAILY #90 tabs 09/27/23 acetaminophen 500 mg tablet 1,000 mg (2 x 500 mg) PO Q8 #1 TAB 10/04/23 aspirin 81 mg chewable tablet 81 mg PO BIDCM #1 TAB 10/04/23 famotidine 20 mg tablet 20 mg PO DAILY #0 tabs 10/04/23 nut.tx.comp. immune systm,reg 0.08 gram-1.4 kcal/mL oral liquid (Ensure Surgery) 237 ml PO TIDCM #0 mL 10/04/23 tramadol 50 mg tablet 50 mg PO Q6H PRN pain 3 days #10 tabs 10/04/23
[2023-10-04 13:56] VITALS: BP 108/56; PULSE 105; RESP 18; TEMP 36.8; O2SAT 100
[2023-10-04] MEDS: traMADol 50 MG Tablet PO (14:00)
--- NOTE | 2023-10-04 18:46 | PN.HOSP_ITS ---
Reason for Visit Reason for Visit: Diagnoses Hypothyroidism, unspecified (10/02/23) Essential (primary) hypertension (10/02/23) Chronic diastolic (congestive) heart failure (10/02/23) Unilateral primary osteoarthritis, right hip (10/02/23) Encounter for other preprocedural examination (10/02/23) Presence of coronary angioplasty implant and graft (10/02/23) Presence of right artificial hip joint (10/02/23) Subjective Subjective Patient was seen and examined today, she appears stable for discharge to an extended care facility for inpatient rehab services. Patient's hemoglobin today was 8.1, I elected to give her an infusion of Venofer. I talked with orthopedic surgery about her care today and filled out her paperwork to go to an extended care facility for inpatient rehab services. Objective Data Objective Data Vital Signs: Vital Signs Temp Pulse Resp BP Pulse Ox O2 Del Method O2 Flow Rate 98.2 F 105 H 18 108/56 L 100 Room Air 4 10/04/23 13:56 10/04/23 13:56 10/04/23 13:56 10/04/23 13:56 10/04/23 13:56 10/04/23 13:56 10/02/23 13:00 Oxygen Flow Rate (L/min) 4 Oxygen Delivery Method Room Air Weight: 48 kg Body Mass Index (BMI) 20.0 Intake & Output: Intake and Output for Last 24 Hours 10/02/23 10/03/23 10/04/23 23:59 23:59 23:59 Intake Total 2011 2550 / 2550 270 / 270 Balance 2011 2550 / 2550 270 / 270 Lab / Micro Data 10/04/23 05:55 10/03/23 07:04 Labs: Laboratory Results - last 24 hr 10/04/23 05:55: WBC 7.3, RBC 2.69 L, Hgb 8.1 L, Hct 24.4 L, MCV 90.7, MCH 30.1, MCHC 33.2, RDW Std Deviation 43.8, RDW Coeff of Young 13.4, Plt Count 165, MPV 9.4 Micro: Microbiology 09/24/23 15:08 Swab (Method) Nasal Screen MRSA/MSSA - Final Physical Exam Narrative alert, oriented x3 and no apparent distress Constitutional Narrative: Appears her stated age General Appearance: cooperative, well kempt and well developed Orientation / Consciousness: awake, oriented to person, oriented to place and oriented to time HEENT normocephalic, head/scalp atraumatic and moist oral mucous membranes Eyes PERRL, EOMs intact bilaterally and conjunctivae normal Neck supple, no JVD, thyroid normal and no carotid bruits General: trachea midline Resp normal respiratory effort, no retractions, no use of accessory muscles and clear to auscultation bilaterally Auscultation: Negative for rales, rhonchi or wheezes Cardio regular rate, regular rhythm, S1 normal heart sound, S2 normal heart sound, no murmurs, no rub and no gallops GI normal to inspection, nondistended, normoactive bowel sounds, soft to palpation, non-tender and non-distended Extremity no clubbing, cyanosis or edema Skin no rashes or lesions noted General Skin Exam: no breakdown Neuro oriented x3, CN's II-XII intact bilaterally, moves all extremities and no sensory deficits noted Sensorium / Orientation: awake, alert, oriented to person, oriented to place and oriented to time Speech: speech normal Psych affect normal Assessment & Plan Assessment/Plan (1) Status post total hip replacement, right: PLAN: Plan 1. Coronary artery disease-stable at this time-patient will remain on her p resent medications #2 chronic kidney disease stage IIIb-complicates care, medical course, recovery, and prognosis, labs will be monitored as deemed necessary #3 acute blood loss anemia on a backdrop of chronic anemia-secondary to expected blood loss from right hip replacement-patient will be given an infusion of Venofer today, she is on oral iron. I do not believe she needs a blood transfusion #4 right hip osteoarthritis-postop day #2 right total hip replacement-PT and OT will see the patient, she will need short-term placement in a senior care facility at the time of discharge from the hospital. Patient appears medically stable for transfer to an extended care facility for inpatient rehab services. Total clinical time spent by myself addressing the patient's medical issues, reviewing all of his data, and collaborating with patient's care team: 35 minutes Charges/Coding Visit Charges Inpatient E&M: 49824 Subs Hosp L2
== END 2023-10-04 14:38 | disposition skilled nursing facility (03) ==
LOC: MS3 16:03
PROVIDERS: Anesthesiology; Admitting Provider Specialist; PCP Internal Medicine; Referring Provider Specialist; Visit Provider Specialist
PROC: (CPT 27284; principal; 2023-10-02 09:35)
DX: M16.11 Unilateral primary osteoarthritis, right hip (principal); M32.9 Systemic lupus erythematosus, unspecified; M06.9 Rheumatoid arthritis, unspecified; M87.051 Idiopathic aseptic necrosis of right femur; I13.0 Hypertensive heart and chronic kidney disease with heart failure and stage 1 through stage 4 chronic kidney disease, or unspecified chronic kidney disease; I50.32 Chronic diastolic (congestive) heart failure; N18.30 Chronic kidney disease, stage 3 unspecified; Z95.5 Presence of coronary angioplasty implant and graft; I25.10 Atherosclerotic heart disease of native coronary artery without angina pectoris; I87.2 Venous insufficiency (chronic) (peripheral); M81.0 Age-related osteoporosis without current pathological fracture; K21.9 Gastro-esophageal reflux disease without esophagitis; E03.9 Hypothyroidism, unspecified; Z79.899 Other long term (current) drug therapy; Z79.890 Hormone replacement therapy; D50.9 Iron deficiency anemia, unspecified
CPT/HCPCS: 27130; 36415; 73501; 73502; 76000; 80048; 80076; 82962; 83036; 83735; 84443; 85027; 85610; 85730; 87081; 88305; 88311; 94668; 96361; 96365; 96366; 96367; 97162; 97166; 97530; 97535; 99221; 99252; C1776; J7050; J7120; A4216; G0378; G0463; J2916; J3475

== ENCOUNTER 2023-10-04 14:50 | Inpatient (IN) | payer MEDICARE, SELFPAY ==
[2019-02-27 14:50] VITALS: BMI 22.1
[2023-10-04 15:02] VITALS: BP 120/64; PULSE 106; RESP 16; TEMP 37.2; O2SAT 96
[2023-10-04 15:24] VITALS: BMI 20.9
--- NOTE | 2023-10-04 15:42 | HP.PCM_ITS ---
HPI - General General Date of Admission: 10/04/23 Date of Service: 10/04/23 Chief Complaint: Here for rehabilitation. HPI Narrative 10/02/2023 HUBERT DAVIS, is a 88 Female who presents with following: Admit to [facility]. 10/02/2023 Dr. Miller performed right minimally invasive direct anterior total hip replacement. 10/02/2023 Doing well, tired. On Ancef. PT/OT. 10/03/2023 Nausea, resolved, pain controlled with pain medications (Tylenol, Tramadol). PT/OT. Chronic right lower extremity weakness, patient feels unsafe to go home. Aspirin 81mg twice daily x 4 weeks for DVT prophylaxis. Hemoglobin 8.6. 10/03/2023 Recommend SNF at discharge, unable to care for her at home. No transfusion necessary at this time. PT/OT. 10/04/2023 Admit to TCU with debility, here for rehabilitation, strengthening, prior to discharge home with . [facility] Medical History (Updated 10/04/23 @ 15:[address] Del Plasencia MD) Anxiety Atherosclerosis of [place] coronary artery of [place] heart without angina pectoris Back pain Cardiology follow-up encounter Chest pain CHF (congestive heart failure) Chronic kidney disease (CKD) stage G3a/A1, moderately decreased glomerular kevin tration rate (GFR) between 45-59 mL/min/1.73 square meter and albuminuria creatinine ratio less than 30 mg/g Chronic pain Contact with and (suspected) exposure to other viral communicable diseases COVID-19 (~12/2021) Depression Diabetes Diastolic dysfunction Dietary restriction Difficulty swallowing Dyspnea Easy bruising Essential (primary) hypertension GERD (gastroesophageal reflux disease) Heartburn History of CHF (congestive heart failure) History of echocardiogram History of edema History of Holter monitoring History of irregular heartbeat Hx of congestive heart failure Hypertension Hypothyroidism Low iron Lupus Migraines Myocardial infarct Non-rheumatic tricuspid valve insufficiency Non-smoker Nonrheumatic aortic valve insufficiency Nonrheumatic mitral valve insufficiency Nonrheumatic mitral valve prolapse Old myocardial infarction Osteoporosis Post-menopausal Presence of stent in coronary artery (~03/08/19) Pure hypercholesterolemia Rheumatoid arthritis Troponin I above reference range URI (upper respiratory infection) Walker as ambulation aid Wears partial dentures Home Medications levothyroxine 25 mcg tablet 25 mcg PO MOTUWETHFR thyroid 12/13/15 [History Last Taken 10/04/23] colesevelam 625 mg tablet (WelChol) 1,250 mg PO DINNER diabetes 12/15/19 [History Last Taken 10/03/23] cholecalciferol (vitamin D3) 25 mcg (1,000 unit) tablet 1,000 unit PO DAILY supplement 08/24/20 [History Last Taken 10/04/23] calcium carbonate 500 mg calcium (1,250 mg) tablet 500 mg PO DAILY supplement 06/15/22 [History Last Taken 10/04/23] artifi.tears(hypromellose)(PF) 1.7 % eye drops with applicator 2 drp ophthalmic (eye) .AM eye health 08/09/22 [History Last Taken 02/25/23] levothyroxine 50 mcg capsule 50 mcg PO SUSA thyroid 02/20/23 [History Last Taken 09/29/23] tramadol 50 mg tablet 25 - 50 mg PO TID PRN Pain 02/25/23 [History Last Taken 10/03/23] furosemide 40 mg tablet 20 mg (1/2 x 40 mg) PO DAILY Please don't refill until pt calls: she has GOBS. #90 tabs 06/28/23 [Rx Last Taken 10/04/23] hydroxychloroquine 200 mg tablet 200 mg PO DAILY Health 07/22/23 [History Last Taken 10/04/23] pimecrolimus 1 % topical cream 1 applic topical QHS lupus of the skin 08/14/23 [History Last Taken 10/03/23] ferrous sulfate 325 mg (65 mg iron) tablet (iron) 325 mg PO BID Blood health 09/20/23 [History Last Taken 10/03/23] folic acid 1 mg tablet 1 mg PO DAILY General health 09/20/23 [History Last Taken 10/04/23] losartan 25 mg tablet 25 mg PO DAILY Heart health #90 tabs 09/27/23 [Rx Last Taken 10/04/23] acetaminophen 500 mg tablet 1,000 mg (2 x 500 mg) PO Q8 Pain #1 TAB 10/04/23 [Rx Last Taken 10/04/23] aspirin 81 mg chewable tablet 81 mg PO BIDCM Anticoagulant #1 TAB 10/04/23 [Rx Last Taken 10/04/23] famotidine 20 mg tablet 20 mg PO DAILY Reflux #0 tabs 10/04/23 [Rx Last Taken 10/04/23] nut.tx.comp. immune systm,reg 0.08 gram-1.4 kcal/mL oral liquid (Ensure Surgery) 237 ml PO TIDCM Nutrition #0 mL 10/04/23 [Rx Last Taken 10/04/23] tramadol 50 mg tablet 50 mg PO Q6H PRN pain 3 days #10 tabs 10/04/23 [Rx Last Taken Unknown] Allergy/AdvReac Type Severity Reaction Status Date / Time nitrofurantoin Allergy Intermediate thrush Verified 10/02/23 07:59 [From Macrobid] latex Allergy Mild Rash Verified 10/02/23 07:59 Penicillins [PCN] Allergy not sure Verified 10/02/23 07:59 Yucbdmw-PWC-CvE Reductase Allergy All blood Verified 10/02/23 07:59 Inhibitor cells low [Whckrga-Rhw-Kvh Reductase Inhibitor] amoxicillin [From Augmentin] AdvReac Severe syncope Verified 10/02/23 07:59 clavulanic acid AdvReac Severe syncope Verified 10/02/23 07:59 [From Augmentin] carvedilol [From Coreg] AdvReac Intermediate Very Verified 10/02/23 07:59 fatigued on smallest dose clopidogrel [From Plavix] AdvReac Intermediate Severe Verified 10/02/23 07:59 diarrhea doxycycline AdvReac GI Verified 10/02/23 07:59 symptoms, emesis Sulfa (Sulfonamide AdvReac Nausea/Vom/ Verified 10/02/23 07:59 Antibiotics) Diarrhea Family History Father CAD (coronary artery disease) Myocardial infarction Mother CVA (cerebral vascular accident) Brother Aneurysm Brother Heart disease Myocardial infarction Sister Afib Parkinson's disease CVA (cerebral vascular accident) Surgical History History of appendectomy History of cardiac catheterization History of coronary artery stent placement History of dilatation and curettage History of left heart catheterization (LHC) (~01/24/21) History of total adrenalectomy Hx of colonoscopy Hx of left cataract extraction Hx of right cataract extraction Presence of coronary angioplasty implant and graft (~03/08/19) S/P coronary artery stent placement (03/08/19) Social History (Updated 10/04/23 @ 15:[address] Del Plasencia MD) household members: spouse Smoking Status: Never smoker Electronic Cigarette Use: not used second hand exposure: No alcohol intake: never substance use type: does not use caffeine: Yes Type: coffee Number of servings: 1 what type of physical activity do you participate in: other details: [employer] frequency: 3-4 times per week duration: 45-60 minutes/day seatbelt use: always do you feel safe at home: Yes ROS Constitutional Constitutional: Denies chills, fever(s) or weight gain ENT HEENT: Denies headache(s), nasal congestion or nasal discharge Cardiovascular Cardiovascular: Denies chest pain or palpitations Respiratory/Chest Respiratory/Chest: Denies cough, excessive phlegm production or shortness of breath with exertion Gastrointestinal Gastrointestinal: Denies abdominal pain, nausea or vomiting Genitourinary Genitourinary: Denies dysuria Musculoskeletal Musculoskeletal: Reports other Details: Right hip pain with weight bearing. ; Denies joint swelling Integumentary Integumentary: Denies rash or wounds Neurologic Neurologic: Denies focal weakness, numbness or tingling Psychiatric Psychiatric: Denies anxiety, auditory hallucinations, depression, homicidal ideation or suicidal ideation Vital Signs Vital Signs Vital Signs: 10/04/23 15:02 10/04/23 15:02 Temperature 98.9 F Temperature Source Temporal Pulse Rate 106 H Pulse Rhythm Regular Pulse Strength Normal (2+) Respiratory Rate 16 Respiratory Effort Normal Non-Labored Respiratory Depth Normal Respiratory Pattern Normal Blood Pressure 120/64 Blood Pressure Mean 82 Blood Pressure Source Monitor Blood Pressure Position Semi-Fowlers Blood Pressure Location Right Arm Pulse Ox 96 Oxygen Delivery Method Room Air Room Air Assessment & Plan Assessment/Plan (1) Debility: (2) Status post total hip replacement, right: (3) (HFpEF) heart failure with preserved ejection fraction: (4) Myocardial infarct: (5) GERD (gastroesophageal reflux disease): (6) CAD (coronary artery disease): QUALIFIERS: Associated angina: with unstable angina Coronary Disease-Associated Artery/Lesion type: [place] artery [place] vs. transplanted heart: [place] heart Qualified Code(s): I25.110 - Atherosclerotic heart disease of [place] coronary artery with unstable angina pectoris (7) Hypothyroidism: (8) Rheumatoid arthritis: (9) Hypertension: (10) Venous stasis: (11) Chronic kidney disease, stage 3b: (12) Mild cognitive impairment: (13) Systemic lupus erythematosus: PLAN: Plan 88 year old female with below past medical history hospitalized for right total hip replacement 10/02/[address] Miller, admitted to TCU with debility, here for rehabilitation, strengthening, prior to discharge home with . * Debility - PT/OT. * Pain - Tylenol 1000mg q8, Tramadol 50mg q6 prn pain (1-10). * Bowel - senna/colace 1 tablet bid, Magnesium citrate 300ml daily prn. * Adult immunization - Administer pneumonia vaccine, covid vaccine, flu vaccine as appropriate. * DVT prophylaxis - Aspirin 81mg bid thru 10/30/2023. * Calcium deficiency - Calcium 500mg daily. * Dry eyes - Artificial tears 2 gtt ou daily. * Vitamin D deficiency - D3 25mcg daily. * Hyperlipidemia - Welchol 1250mg daily. * Nutrition - Ensure Surgery 237ml tidcm. * GERD - Famotidine 20mg daily. * Iron deficiency anemia - Ferrous sulfate 325mg bid. * Systemic Lupus Erythematosus - Plaquenil 200mg daily, Folic acid 1mg daily. * HFpEF - Losartan 25mg daily, Furosemide 20mg daily. * Hypothyroidism - Levothyroxine 25mcg/50mcg alternating. * Atopic Dermatitis - Elidel topical qhs.
[2023-10-04 16:47] VITALS: BMI 20.9
[2023-10-04 17:05] LABS: Anion Gap 3 (5-15); BUN 50 mg/dL (7-18); BUN/Creat Ratio 39.1 RATIO (10-20); Calcium,Total 8.7 mg/dL (8.5-10.1); Chloride 103 mmol/L (98-107); Creatinine, Serum 1.28 mg/dL (0.55-1.02); EST Glomerular Filtration Rate 42 mL/min (>60); Est Glom Filt Rate - Afr Amer 51 mL/min (>60); Estimated Creatinine Clearance 23.37 ml/min; Glucose 127 mg/dL (74-106); Potassium 4.8 mmol/L (3.5-5.1); Sodium Level 132 mmol/L (136-145)
[2023-10-04] MEDS: Aspirin 81 MG TAB.CHEW PO (18:17)
[2023-10-04] MEDS: Ferrous Sulfate 325 MG Tablet PO (18:17)
[2023-10-04] MEDS: Ensure Surgery 237 ML LIQUID PO (18:44)
[2023-10-04] MEDS: Acetaminophen 500 MG Tablet 1000 MG PO (21:57)
[2023-10-04] MEDS: traMADol 50 MG Tablet PO (21:57)
[2023-10-04] MEDS: PIMECROLIMUS 30 GM CREAM..G. TOPICAL (21:58)
[2023-10-05] MEDS: Levothyroxine 50 MCG Tablet PO (05:29)
[2023-10-05] MEDS: Acetaminophen 500 MG Tablet 1000 MG PO ×3 (05:29→21:07)
[2023-10-05] MEDS: Ensure Surgery 237 ML LIQUID PO ×3 (09:48→16:44)
[2023-10-05] MEDS: Aspirin 81 MG TAB.CHEW PO ×2 (09:49→16:44)
[2023-10-05] MEDS: Furosemide 20 MG Tablet PO (09:49)
[2023-10-05] MEDS: Calcium (Elemental) 500 MG Tablet PO (09:50)
[2023-10-05] MEDS: Famotidine 20 MG Tablet PO (09:50)
[2023-10-05] MEDS: Hydroxychloroquine 200 MG Tablet PO (09:50)
[2023-10-05] MEDS: Losartan Potassium 25 MG Tablet PO (09:51)
[2023-10-05] MEDS: CARBOXYMETHYLCELLULOSE SODIUM 1 DRP DROPS 2 DRP OPHTHALMIC (09:51)
[2023-10-05] MEDS: Cholecalciferol (VIT D3) 25 MCG TABLET (1,000 UNITS) PO (09:51)
[2023-10-05] MEDS: Folic Acid 1 MG Tablet PO (09:51)
[2023-10-05] MEDS: Senna/Docusate Sodium 1 Tablet PO ×2 (09:52→21:07)
[2023-10-05 09:55] VITALS: BP 124/54; PULSE 91; RESP 18; O2SAT 97
[2023-10-05] MEDS: Tuberculin,Purif.prot.deriv. 50 TU/ML Vial 0.100000000000000006 ML ID (12:18)
[2023-10-05] MEDS: Ferrous Sulfate 325 MG Tablet PO ×2 (12:19→16:45)
--- NOTE | 2023-10-05 12:44 | NURSING ---
Pt states she may have had it already for this year. Vaccine record shows last admin of flu vaccine 06/02/23. Did not administer scheduled flu shot today.
[2023-10-05 16:09] LABS: Absolute Lymphocyte Count 0.52 X10^3/uL (0.83-4.51); Absolute Neutrophil Count 4.7 X10^3/uL (2.0-7.7); Basophil# 0.01 X10^3/uL; Basophil% 0.2 % (0-1); Eosinophil# 0.14 X10^3/uL; Eosinophils% 2.2 % (0-5); Hematocrit 24.2 % (37-47); Hemoglobin 7.8 g/dL (12.0-15.0); Lymphocyte # 0.52 X10^3/ul (0.83-4.51); Lymphocyte % 8.2 % (19-41); Mean Corp Hgb Conc 32.2 g/dL (32-36); Mean Corpuscular Hgb 29.7 pg (27.0-32.0); Mean Platelet Vol. 9.1 fl (6.2-12.0); Monocyte# 0.93 X10^3/uL; Monocyte% 14.7 % (0-10); NRBC Flagged by Analyzer 0 % (0-5); Neutrophil # 4.71 X10^3/uL (2.7-7.7); Neutrophil % 74.2 % (47-70); POSITIVE DIFFERENTIAL YES; Platelet Count 183 K/mm3 (150-450); RBC Distribution Width CV 13.7 % (11.6-14.6); RBC Distribution Width SD 45.7 fl (35.1-43.9); Red Blood Count 2.63 M/mm3 (4.2-5.4); White Blood Count 6.3 K/mm3 (4.4-11.0)
[2023-10-05 16:10] LABS: Differential Comment SCANNED; Differential Indicated SCAN CRITERIA MET
[2023-10-05 16:22] LABS: Anion Gap 2 (5-15); BUN 47 mg/dL (7-18); BUN/Creat Ratio 40.2 RATIO (10-20); Calcium,Total 8.7 mg/dL (8.5-10.1); Chloride 101 mmol/L (98-107); Creatinine, Serum 1.17 mg/dL (0.55-1.02); EST Glomerular Filtration Rate 47 mL/min (>60); Est Glom Filt Rate - Afr Amer 56 mL/min (>60); Estimated Creatinine Clearance 25.56 ml/min; Glucose 95 mg/dL (74-106); Potassium 4.8 mmol/L (3.5-5.1); Sodium Level 130 mmol/L (136-145)
[2023-10-05] MEDS: PIMECROLIMUS 30 GM CREAM..G. TOPICAL (21:06)
[2023-10-06 05:43] LABS: Anion Gap 2 (5-15); BUN 40 mg/dL (7-18); BUN/Creat Ratio 36.7 RATIO (10-20); Calcium,Total 8.9 mg/dL (8.5-10.1); Chloride 101 mmol/L (98-107); Creatinine, Serum 1.09 mg/dL (0.55-1.02); EST Glomerular Filtration Rate 50 mL/min (>60); Est Glom Filt Rate - Afr Amer 61 mL/min (>60); Estimated Creatinine Clearance 27.44 ml/min; Glucose 90 mg/dL (74-106); Potassium 4.3 mmol/L (3.5-5.1); Sodium Level 130 mmol/L (136-145)
[2023-10-06] MEDS: Acetaminophen 500 MG Tablet 1000 MG PO ×3 (06:13→20:46)
[2023-10-06] MEDS: Levothyroxine 50 MCG Tablet PO (06:15)
[2023-10-06 08:27] VITALS: BP 130/53; PULSE 96; RESP 18; O2SAT 99
[2023-10-06] MEDS: Aspirin 81 MG TAB.CHEW PO ×2 (08:27→17:52)
[2023-10-06] MEDS: Furosemide 20 MG Tablet PO (08:28)
[2023-10-06] MEDS: Senna/Docusate Sodium 1 Tablet PO (08:28)
[2023-10-06] MEDS: Hydroxychloroquine 200 MG Tablet PO (08:28)
[2023-10-06] MEDS: Folic Acid 1 MG Tablet PO (08:28)
[2023-10-06] MEDS: Famotidine 20 MG Tablet PO (08:28)
[2023-10-06] MEDS: Losartan Potassium 25 MG Tablet PO (08:28)
[2023-10-06] MEDS: Calcium (Elemental) 500 MG Tablet PO (08:28)
[2023-10-06] MEDS: Cholecalciferol (VIT D3) 25 MCG TABLET (1,000 UNITS) PO (08:29)
[2023-10-06] MEDS: Ensure Surgery 237 ML LIQUID PO ×2 (08:35→17:52)
--- NOTE | 2023-10-06 10:05 | NURSING ---
refrigeration operator reports pt had some confusion during shift. Noted some increased (from yesterday) confusion/forgetfulness with personal care this morning. Speech clear, facial symmetry intact. Hand grasps equal, gait/ambulation baseline. Na 130 this morning, Hgb 7.8. RN aware, will notify Dr. Plasencia
--- NOTE | 2023-10-06 10:12 | NURSING ---
Patient having increase in confusion. Nurse also notes abnormal labs. Call placed to Dr. Plasencia and updated on patient's symptoms and her abnormal labs. New order received with read-back for UA C&S. Ordered entered.
[2023-10-06 11:06] LABS: Bacteria 0 SEEN /hpf (None Seen); Mucous, Urine 0 SEEN /hpf (<or=2+); Red Blood Cells-Urine 0 SEEN /hpf (0-5); White Blood Cells 0 SEEN /hpf (0-5)
[2023-10-06] MEDS: Ferrous Sulfate 325 MG Tablet PO ×2 (11:11→17:51)
[2023-10-06 11:22] VITALS: TEMP 37.1
[2023-10-06 11:26] LABS: Color, Urine Yellow (Yellow); Glucose, Dipstick Normal (Normal); Ketone-Dipstick Negative (Negative); Leukocyte Esterase-Dipstick Negative /ul (Negative); Nitrite-Dipstick Negative (Negative); Occult Blood-Urine Negative /ul (Negative); Protein-Dipstick 15 mg/dl (Negative); Urine Bilirubin Dipstick Negative (Negative); Urine Clarity Clear (Clear); Urine Urobilinogen Normal (Normal)
[2023-10-06 11:30] LABS: Urine Sodium 51 mmol/L (Not Establ.)
[2023-10-06 11:33] LABS: Squamous Epithelial Cells - UA 0-5 SEEN /hpf (5-10)
[2023-10-06 11:35] LABS: Osmolality, Urine 437 mOsm/KG
[2023-10-06 11:35] LABS: Osmolality, Serum 288 mOsm/KG (280-301)
--- NOTE | 2023-10-06 18:33 | NURSING ---
Dr. Plasencia entered orders for occult stool (result negative) and 1500mL/day fluid restrictions. Pt and aware, in agreement with plan of care. Pt continues with mild confusion/forgetfulness throughout shift, remains pleasant and able to answer orientation questions appropriately. Denies pain, malaise. Speech clear, BUE and BLE strength baseline.
[2023-10-06] MEDS: PIMECROLIMUS 30 GM CREAM..G. TOPICAL (20:45)
[2023-10-06 20:48] LABS: Bacteria 0 SEEN /hpf (None Seen); Mucous, Urine 0 SEEN /hpf (<or=2+); Red Blood Cells-Urine 0 SEEN /hpf (0-5); Squamous Epithelial Cells - UA 0 SEEN /hpf (5-10); White Blood Cells 0 SEEN /hpf (0-5)
[2023-10-06 21:01] LABS: Color, Urine Yellow (Yellow); Glucose, Dipstick Normal (Normal); Ketone-Dipstick Negative (Negative); Leukocyte Esterase-Dipstick Negative /ul (Negative); Nitrite-Dipstick Negative (Negative); Occult Blood-Urine Negative /ul (Negative); Protein-Dipstick 15 mg/dl (Negative); Urine Bilirubin Dipstick Negative (Negative); Urine Clarity Sl. Cloudy (Clear); Urine Urobilinogen Normal (Normal)
[2023-10-07] MEDS: Levothyroxine 25 MCG TABLET PO (05:35)
[2023-10-07] MEDS: Acetaminophen 500 MG Tablet 1000 MG PO ×3 (05:35→21:01)
[2023-10-07 06:20] LABS: Hematocrit 24.6 % (37-47)
[2023-10-07 07:04] LABS: Anion Gap 3 (5-15); BUN 35 mg/dL (7-18); BUN/Creat Ratio 33.3 RATIO (10-20); Calcium,Total 9.1 mg/dL (8.5-10.1); Chloride 106 mmol/L (98-107); Creatinine, Serum 1.05 mg/dL (0.55-1.02); EST Glomerular Filtration Rate 53 mL/min (>60); Est Glom Filt Rate - Afr Amer 64 mL/min (>60); Estimated Creatinine Clearance 28.48 ml/min; Glucose 94 mg/dL (74-106); Potassium 4.9 mmol/L (3.5-5.1); Sodium Level 134 mmol/L (136-145)
[2023-10-07] MEDS: Calcium (Elemental) 500 MG Tablet PO (07:51)
[2023-10-07] MEDS: Folic Acid 1 MG Tablet PO (07:51)
[2023-10-07] MEDS: Aspirin 81 MG TAB.CHEW PO ×2 (07:51→18:14)
[2023-10-07] MEDS: Cholecalciferol (VIT D3) 25 MCG TABLET (1,000 UNITS) PO (07:52)
[2023-10-07] MEDS: Hydroxychloroquine 200 MG Tablet PO (07:52)
[2023-10-07] MEDS: Furosemide 20 MG Tablet PO (10:11)
[2023-10-07] MEDS: Losartan Potassium 25 MG Tablet PO (10:11)
[2023-10-07] MEDS: Famotidine 20 MG Tablet PO (10:11)
[2023-10-07] MEDS: CARBOXYMETHYLCELLULOSE SODIUM 1 DRP DROPS 2 DRP OPHTHALMIC (10:12)
--- NOTE | 2023-10-07 11:10 | NURSING ---
Offered covid vaccine, VIS provided. Patient refuses at this time.
--- NOTE | 2023-10-07 11:27 | CASEMGMT ---
Initial Social Work TCU admit assessment. SW met w/pt to complete initial assessment. SW introduced self and role. SW verified contacts. Pt confirmed full code status w/SW. Educated pt to Medicare benefit, explained first insurance review will be 10/08/23, educated her that continued stay not guaranteed. SW explained once we know how long insurance authorizes, will let her know, pt states understanding. Pt's goal is to return home w/, open to home health vs outpt therapy. Pt may be interested in completing LW/POA while here. SW will continue to follow along for any social service/discharge planning needs. JOSHUA Pina
--- NOTE | 2023-10-07 11:38 | NURSING ---
Stars Coordinator Note; Activity Asset: Shaan Bernstein is independent in her choice of daily activities. She welcomes word search puzzles, visits w/glazier helper and therapy dog when her dog is not visiting. Her family will visit daily along w/her hinduism family. When not visiting with others and therapy she will read, watch tv and rest. Staff will remind her of weekly activities and respect her right to say no.
[2023-10-07] MEDS: Ferrous Sulfate 325 MG Tablet PO ×2 (11:56→18:14)
--- NOTE | 2023-10-07 13:10 | PCM.PN.DRR ---
Documented by User: Milan Keane 10/07/23 14:24 TCU RX Drug Regimen Review Subjective/Objective Subjective/Objective: Subjective: TCU admission note. 88 year old female with below past medical history hospitalized for right total hip replacement 10/02/[address] Miller, admitted to TCU with debility, here for rehabilitation, strengthening, prior to discharge home with . Objective: Allergies nitrofurantoin [From Macrobid] Allergy (Intermediate, Verified 10/02/23 07:59) thrush latex Allergy (Mild, Verified 10/02/23 07:59) Rash Penicillins [PCN] Allergy (Verified 10/02/23 07:59) not sure Mbbmheq-KTB-RjN Reductase Inhibitor [Msxhbqc-Kdl-Tew Reductase Inhibitor] Allergy (Verified 10/02/23 07:59) All blood cells low amoxicillin [From Augmentin] Adverse Reaction (Severe, Verified 10/02/23 07:59) syncope clavulanic acid [From Augmentin] Adverse Reaction (Severe, Verified 10/02/23 07:59) syncope carvedilol [From Coreg] Adverse Reaction (Intermediate, Verified 10/02/23 07:59) Very fatigued on smallest dose clopidogrel [From Plavix] Adverse Reaction (Intermediate, Verified 10/02/23 07:59) Severe diarrhea doxycycline Adverse Reaction (Verified 10/02/23 07:59) GI symptoms, emesis Sulfa (Sulfonamide Antibiotics) Adverse Reaction (Verified 10/02/23 07:59) Nausea/Vom/Diarrhea Current Medications Generic Name Dose Route Start Last Admin Trade Name Freq PRN Reason Stop Dose Admin Acetaminophen 1,000 mg 10/04/23 22:00 10/07/23 05:35 Acetaminophen 500 Mg Tablet PO 1,000 mg Q8 LIZZY Administration Artificial Tears 2 drp 10/05/23 10:00 10/07/23 10:12 Carboxymethylcellulose Sodium 1 Drp Drops OPHTHALMIC 2 drp DAILY LIZZY Administration Aspirin 81 mg 10/04/23 17:00 10/07/23 07:51 Aspirin 81 Mg Tab.Chew PO 10/30/23 23:59 81 mg BIDCM LIZZY Administration Calcium Carbonate 500 mg 10/05/23 08:00 10/07/23 07:51 Calcium (Elemental) 500 Mg Tablet PO 500 mg DAILYCM LIZZY Administration Cholecalciferol 25 mcg 10/05/23 08:00 10/07/23 07:52 Cholecalciferol (Vit D3) 25 Mcg Tablet (1,000 Units) PO 25 mcg DAILYCM [facility] Administration Famotidine 20 mg 10/05/23 10:00 10/07/23 10:11 Famotidine 20 Mg Tablet PO 20 mg DAILY [facility] Administration Ferrous Sulfate 325 mg 10/04/23 17:00 10/07/23 11:56 Ferrous Sulfate 325 Mg Tablet PO 325 mg BID@1200,1700 [facility] Administration Folic Acid 1 mg 10/05/23 08:00 10/07/23 07:51 Folic Acid 1 Mg Tablet PO 1 mg DAILYCM [facility] Administration Furosemide 20 mg 10/05/23 10:00 10/07/23 10:11 Furosemide 20 Mg Tablet PO 20 mg DAILY [facility] Administration Protocol Hydroxychloroquine Sulfate 200 mg 10/05/23 08:00 10/07/23 07:52 Hydroxychloroquine 200 Mg Tablet PO 200 mg DAILYCM [facility] Administration Levothyroxine Sodium 50 mcg 10/05/23 06:00 10/06/23 06:15 Levothyroxine 50 Mcg Tablet PO 50 mcg SuSa@0600 [facility] Administration Levothyroxine Sodium 25 mcg 10/07/23 06:00 10/07/23 05:35 Levothyroxine 25 Mcg Tablet PO 25 mcg MoTuWeThFr@0600 [facility] Administration Losartan Potassium 25 mg 10/05/23 10:00 10/07/23 10:11 Losartan Potassium 25 Mg Tablet PO 25 mg DAILY [facility] Administration Protocol Magnesium Citrate 300 ml 10/04/23 16:06 Magnesium Citrate 300 Ml PO DAILY PRN Constipation Nutritional Formula (Lactose Free) 120 ml 10/07/23 17:00 Ensure Plus High Protein 120 Ml Liquid PO 0800,1700 [facility] Senna/Docusate Sodium 1 tablet 10/04/23 22:00 10/07/23 10:11 Senna/Docusate Sodium 1 Tablet PO Not Given BID [facility] Tramadol HCl 50 mg 10/04/23 15:18 10/04/23 21:57 Tramadol 50 Mg Tablet PO 50 mg Q6H PRN Administration pain 1-10 Tuberculin PPD 0.1 ml 10/12/23 10:00 Tuberculin,Purif.Prot.Deriv. 50 Tu/Ml Vial ID 10/12/23 10:01 X1 ONE Problem List (Updated 10/04/23 @ 15:[address] Del Plasencia MD) Systemic lupus erythematosus (Acute) Mild cognitive impairment (Acute) Chronic kidney disease, stage 3b (Acute) Venous stasis (Acute) Hypertension (Chronic) Rheumatoid arthritis (Acute) GERD (gastroesophageal reflux disease) (Acute) Myocardial infarct (Acute) (HFpEF) heart failure with preserved ejection fraction (Acute) Debility (Acute) Status post total hip replacement, right (Acute) Hypothyroidism (Acute) Vital Signs Temp Pulse Resp BP Pulse Ox O2 Del Method 98.8 F 96 18 130/53 H 99 Room Air 10/06/23 11:22 10/06/23 08:27 10/06/23 08:27 10/06/23 08:27 10/06/23 08:27 10/06/23 08:27 Oxygen Delivery Method Room Air Weight: 50.439 kg Body Mass Index (BMI) 20.9 Sodium 134 mmol/L (136-145) L 10/07/23 05:25 Potassium 4.9 mmol/L (3.5-5.1) 10/07/23 05:25 Chloride 106 mmol/L (98-107) 10/07/23 05:25 Carbon Dioxide 25.0 mmol/L (21.0-32.0) 10/07/23 05:25 Anion Gap 3 (5-15) L 10/07/23 05:25 BUN 35 mg/dL (7-18) H 10/07/23 05:25 Creatinine 1.05 mg/dL (0.55-1.02) H 10/07/23 05:25 Est GFR (MDRD) Af Amer 64 mL/min (>60) 10/07/23 05:25 Est GFR (MDRD) Non-Af 53 mL/min (>60) L 10/07/23 05:25 BUN/Creatinine Ratio 33.3 RATIO (10-20) H 10/07/23 05:25 Glucose 94 mg/dL (74-106) 10/07/23 05:25 Assessment/Plan: 1. Pain: acetaminophen 1000 mg PO Q8H, tramadol 50 mg PO Q6H PRN pain. The patient has required 1 dose of tramadol so far this admission. Please continue to monitor for pain levels, LFTs (AST/ALT = 25/21 U/L on 09/24/23), renal function (serum creatinine = 1.05 mg/dL with creatinine clearance ~ 28 on 10/07/23), for syncope/ataxia/falls, for drowsiness, dizziness and constipation. 2. Bowel: senna/docusate 1 tablet PO BID, magnesium citrate 300 mL PO daily PRN constipation. The patient has not required any PRN doses of magnesium citrate this admission, and her last bowel movement was on 10/07/23. Please continue to monitor for bowel movements, PRN medication usage, constipation and diarrhea. 3. DVT prophylaxis: aspirin 81 mg PO BIDCM through 10/04/23. Please continue to monitor for s/s of a DVT such as pain/swelling/erythema in an extremity, for GI distress with aspirin administration, for bleeding/excessive bruising, for hemoglobin levels (Hgb = 8.0 g/dL on 10/07/23), and platelet count (plt = 183 K/mm3 on 10/05/23). 4. Systemic Lupus Erythematosus: hydroxychloroquine 200 mg PO daily with meals, folic acid 1 mg PO daily with a meal. Please continue to monitor for s/s of lupus flares, for changes in eye function, and for s/s of skin rash that could indicate SJS, TEN or DRESS. 5. HFpEF: losartan 25 mg PO daily, furosemide 20 mg PO daily. Please continue to monitor for shortness of breath and lower extremity edema that could indicate a CHF exacerbation, blood pressures (recent range = 102-135/53-79 mmHg), renal function (serum creatinine = 1.05 mg/dL with creatinine clearance ~ 28 on 10/07/23), potassium levels (K = 4.9 mmol/L on 10/07/23), sodium levels (Na = 134 mmol/L on 10/07/23), calcium levels (Ca = 9.1 mg/dL on 10/07/23), and for s/s of dehydration. 6. Hypothyroidism: levothyroxine 50 mcg PO daily on Sundays and Saturdays, levothyroxine 25 mcg PO daily on Saturday - Saturday. Please continue to monitor for s/s of hypo/hyperthyroidism, and thyroid levels (TSH = 2.93 uIU/mL on 09/24/23). 7. GERD: famotidine 20 mg PO daily. Please continue to monitor for s/s of GERD, renal function (serum creatinine = 1.05 mg/dL with creatinine clearance ~ 28 on 10/07/23), for constipation and for delirium. 8. Iron deficiency anemia: ferrous sulfate 325 mg PO BID. Please continue to monitor hemoglobin levels (Hgb = 8.0 g/dL on 10/07/23), and iron levels (no recent iron levels documented) as well as for GI distress with iron administration. Please consider ordering iron levels as the patient does not have recent levels documented. 9. Atopic Dermatitis: pimecrolimus 1 application topically QHS. Please continue to monitor for s/s of dermatitis, headache, and burning at application site. 10. Calcium deficiency: calcium 500 mg PO daily with a meal. Please continue to monitor for s/s of calcium deficiency as well as calcium levels (Ca = 9.1 mg/dL on 10/07/23). 11. Vitamin D deficiency: cholecalciferol 25 mcg PO daily. Please continue to monitor for s/s of vitamin D deficiency as well as vitamin D levels (vitamin D = 34.7 ng/mL on 04/24/13). Please consider ordering a vitamin D level as the patient does not have a recent level documented. 12. Dry eyes: refresh tears 2 drops in each eye daily. Please continue to monitor for dry eyes. 13. Nutrition: ensure plus high protein 120 mL PO BID with breakfast and dinner. Please continue to monitor nutritional status. Assessment/Plan for indications treated with psychotropic medications: NA Medical chart and medication regimen reviewed. The following medication irregularities or issues were identified: 1. Iron deficiency anemia: ferrous sulfate 325 mg PO BID. Please consider ordering iron levels as the patient does not have recent levels documented. 2. Vitamin D deficiency: cholecalciferol 25 mcg PO daily. Please consider ordering a vitamin D level as the patient does not have a recent level documented. Date Date of Note:: 10/07/23 Documented by User: Dr. Del Plasencia MD 10/07/23 15:40 TCU RX Drug Regimen Review Provider Comments Provider responsibility Provider Comments to Recommendations by Pharmacy: Agree
[2023-10-07 14:39] VITALS: BP 118/56; PULSE 95; RESP 16; TEMP 36.4; O2SAT 99
--- NOTE | 2023-10-07 19:48 | NURSING ---
Patient dressing removed. Surgical incision noted to have small opening in middle. Steri strips and silver mepilex applied. notified.
[2023-10-07] MEDS: PIMECROLIMUS 30 GM CREAM..G. TOPICAL (20:59)
[2023-10-07] MEDS: traMADol 50 MG Tablet PO (21:00)
[2023-10-07] MEDS: Senna/Docusate Sodium 1 Tablet PO (21:00)
[2023-10-07 22:00] VITALS: PULSE 81; RESP 16; O2SAT 97
[2023-10-08] MEDS: Levothyroxine 25 MCG TABLET PO (05:18)
[2023-10-08] MEDS: Acetaminophen 500 MG Tablet 1000 MG PO ×3 (05:18→22:16)
[2023-10-08 05:26] VITALS: PULSE 96; RESP 16; O2SAT 97
[2023-10-08 06:01] LABS: Hematocrit 24.9 % (37-47)
[2023-10-08 06:26] LABS: Iron 29 ug/dL (50-170)
[2023-10-08] MEDS: Folic Acid 1 MG Tablet PO (09:37)
[2023-10-08] MEDS: Aspirin 81 MG TAB.CHEW PO ×2 (09:37→18:00)
[2023-10-08] MEDS: Ensure Plus High Protein 120 ML LIQUID PO ×2 (09:37→18:00)
[2023-10-08] MEDS: Furosemide 20 MG Tablet PO (09:38)
[2023-10-08] MEDS: Calcium (Elemental) 500 MG Tablet PO (09:38)
[2023-10-08] MEDS: Losartan Potassium 25 MG Tablet PO (09:38)
[2023-10-08] MEDS: Cholecalciferol (VIT D3) 25 MCG TABLET (1,000 UNITS) PO (09:38)
[2023-10-08] MEDS: Hydroxychloroquine 200 MG Tablet PO (09:38)
[2023-10-08] MEDS: Famotidine 20 MG Tablet PO (09:39)
[2023-10-08] MEDS: Senna/Docusate Sodium 1 Tablet PO (09:39)
[2023-10-08] MEDS: Iron Polysaccharide Complex 150 MG CAPSULE PO ×2 (09:48→18:00)
[2023-10-08 10:39] VITALS: BP 102/55; PULSE 88; RESP 14; TEMP 37.6; O2SAT 99
[2023-10-08 15:00] VITALS: BMI 20.9
[2023-10-08 16:34] VITALS: BMI 41.8
[2023-10-08] MEDS: PIMECROLIMUS 30 GM CREAM..G. TOPICAL (22:19)
[2023-10-09] MEDS: Levothyroxine 25 MCG TABLET PO (05:49)
[2023-10-09] MEDS: Acetaminophen 500 MG Tablet 1000 MG PO ×3 (05:49→20:23)
[2023-10-09 05:54] LABS: Hematocrit 25.1 % (37-47); Hemoglobin 8.1 g/dL (12.0-15.0)
[2023-10-09] MEDS: Aspirin 81 MG TAB.CHEW PO ×2 (08:18→17:26)
[2023-10-09] MEDS: Iron Polysaccharide Complex 150 MG CAPSULE PO ×2 (08:18→17:26)
[2023-10-09] MEDS: Folic Acid 1 MG Tablet PO (08:19)
[2023-10-09] MEDS: Cholecalciferol (VIT D3) 25 MCG TABLET (1,000 UNITS) PO (08:20)
[2023-10-09] MEDS: Hydroxychloroquine 200 MG Tablet PO (08:20)
[2023-10-09] MEDS: Calcium (Elemental) 500 MG Tablet PO (08:23)
[2023-10-09] MEDS: Ensure Plus High Protein 120 ML LIQUID PO ×2 (08:25→17:25)
[2023-10-09] MEDS: Furosemide 20 MG Tablet PO (09:55)
[2023-10-09] MEDS: Losartan Potassium 25 MG Tablet PO (09:55)
[2023-10-09] MEDS: Famotidine 20 MG Tablet PO (09:56)
[2023-10-09] MEDS: Senna/Docusate Sodium 1 Tablet PO (09:56)
[2023-10-09] MEDS: CARBOXYMETHYLCELLULOSE SODIUM 1 DRP DROPS 2 DRP OPHTHALMIC (09:57)
[2023-10-09 10:00] VITALS: PULSE 78; O2SAT 98
[2023-10-09 10:32] VITALS: BP 139/70; PULSE 78; RESP 14; TEMP 36.9; O2SAT 98
--- NOTE | 2023-10-09 10:34 | CASEMGMT ---
Social Work IDT met with patient, and dtr for care plan meeting. Discussed patient's progress in PT/OT/ST/SN. Educated to [facility] insurance with NRD 10/16, EDC 10/20. Pt is needing extra time with tasks and recovery. Scheduled therapy training with . SW to coordinate DC needs. Inquired about advanced directives. Dtr to bring in copies of the paperwork pt has completed, but unsure if it is HCPOA and LW. SW offered to complete documents if needed. SW provided resources for MAINTENANCE SPECIALIST, medical alert and home delivered meals. SW will continue to follow for DC planning. Joanie Alcocer, ALAN [employer]ESS [employer]
[2023-10-09 15:35] VITALS: BP 106/55; PULSE 82; RESP 14; TEMP 36.7; O2SAT 96
--- NOTE | 2023-10-09 16:07 | CHAPLAIN ---
Type of Pastoral Visit _x__ Initial Visit ___ Follow-up Visit ___ On-call Visit ___ General Patient Visit ___ Spiritual Assessment ___ Family Conference ___ Bereavement ___ Rapid Response ___ Code Blue ___ Other (describe below) Pastoral Care Referral From _x__ Patient ___ Family ___ Nurse ___ Physician ___ Blister Rust Eradicator ___ Roving Carrier ___ Other (describe below) Sacrament/Intervention _x__ Active listening ___ Anointing ___ Restorationist ___ Bereavement ___ Communion _x__ Christine exploration ___ _x__ Life review _x__ Prayer ___ Reconciliation ___ Sacrament of Sick ___ Supportive presence ___ Wedding ___ Other (describe below) Pastoral Comments patient is welcoming and explains her situation and her need for the recent surgery; pt acknowledges that she is not in a good home situation now due to multiple levels of stairs in the home; pt spouse walks in with the dog to visit; much conversation continues between the three in the room and they are both very interested to talk about spiritual matters and their christine; christine in God is a major part of their lives and they both find such encouragement from it; future visits are welcome; prayer is given
[2023-10-09] MEDS: PIMECROLIMUS 30 GM CREAM..G. TOPICAL (20:24)
[2023-10-10] MEDS: Levothyroxine 25 MCG TABLET PO (05:20)
[2023-10-10] MEDS: Acetaminophen 500 MG Tablet 1000 MG PO ×3 (05:20→21:04)
[2023-10-10 05:56] LABS: Hematocrit 24.3 % (37-47); Hemoglobin 7.8 g/dL (12.0-15.0)
[2023-10-10] MEDS: Aspirin 81 MG TAB.CHEW PO ×2 (08:31→16:39)
[2023-10-10] MEDS: Hydroxychloroquine 200 MG Tablet PO (08:32)
[2023-10-10] MEDS: Calcium (Elemental) 500 MG Tablet PO (08:32)
[2023-10-10] MEDS: Iron Polysaccharide Complex 150 MG CAPSULE PO ×2 (08:32→16:39)
[2023-10-10] MEDS: Folic Acid 1 MG Tablet PO (08:32)
[2023-10-10] MEDS: Cholecalciferol (VIT D3) 25 MCG TABLET (1,000 UNITS) PO (08:33)
[2023-10-10] MEDS: Ensure Plus High Protein 120 ML LIQUID PO ×2 (08:35→16:41)
[2023-10-10] MEDS: Losartan Potassium 25 MG Tablet PO (10:20)
[2023-10-10] MEDS: Famotidine 20 MG Tablet PO (10:20)
[2023-10-10] MEDS: Furosemide 20 MG Tablet PO (10:20)
--- NOTE | 2023-10-10 10:37 | MDS.RN ---
Pain interview for MDS completed.
[2023-10-10 11:09] LABS: Vitamin D 1,25-Dihydroxy 32.6 pg/mL (24.8-81.5)
[2023-10-10 12:15] VITALS: BP 128/58; PULSE 81; RESP 16; TEMP 37; O2SAT 99
--- NOTE | 2023-10-10 14:43 | CASEMGMT ---
Social Work Pt has been issued a NOMNC by insurance with last covered day on 10/12 and dc on 10/13. UMAIR met with pt and explained NOMNC and right to appeal. Discharge options discussed including staying at TCU private pay, SNF placement private pay or returning home with home health care. Pt considered options and called her dgt to discuss. Pt choosing to appeal denial at this time. If denial of services is upheld, pt plans to return home with home health care on 10/13/23. A list of home health providers including quality and resource use data from the [facility] provided to pt. Pt requesting time to review options prior to choosing a company. SW to follow up tomorrow on home health preferences. UMAIR met with LINUX SYSTEM ENGINEER and RICHEY and explained LCD 10/12. Pt lives in tri level home with 6 steps and two rails to upstairs and 6 steps and 1 rail from the garage to the main living area. Therapy to work with pt on steps and car transfer today. Therapy is recommending home health PT/OT/SOCIAL WORK INSTRUCTOR. Pt has a cane and a walker for use at discharge. UMAIR will continue to follow for dc planning. Anticipated DC date: 10/13 Anticipated DC plan: Home with spouse and HHC PT/OT/SOCIAL WORK INSTRUCTOR, pending outcome of appeal ANDREW Ocampo
--- NOTE | 2023-10-10 17:15 | PCM.DC.SUM ---
Providers Date of Admission: 10/04/23 Primary Care Physician: Dr. Dori Boyd DO Reason For Visit: ANTERIOR RIGHT TOTAL HIP ATHROPLAS Diagnosis Discharge Diagnosis (1) Debility: Status: Acute Code(s): R53.81 - Other malaise (2) Status post total hip replacement, right: Status: Acute Code(s): Z96.641 - Presence of right artificial hip joint (3) (HFpEF) heart failure with preserved ejection fraction: Status: Acute Code(s): I50.30 - Unspecified diastolic (congestive) heart failure (4) Myocardial infarct: Status: Acute Code(s): I21.9 - Acute myocardial infarction, unspecified (5) GERD (gastroesophageal reflux disease): Status: Acute Code(s): K21.9 - Gastro-esophageal reflux disease without esophagitis (6) CAD (coronary artery disease): Status: Inactive Code(s): I25.10 - Atherosclerotic heart disease of [place] coronary artery without angina pectoris Qualifiers: Coronary Disease-Associated Artery/Lesion type: [place] artery [place] vs. transplanted heart: [place] heart Associated angina: with unstable angina Qualified Code(s): I25.110 - Atherosclerotic heart disease of [place] coronary artery with unstable angina pectoris (7) Hypothyroidism: Status: Acute Code(s): E03.9 - Hypothyroidism, unspecified (8) Rheumatoid arthritis: Status: Acute Code(s): M06.9 - Rheumatoid arthritis, unspecified (9) Hypertension: Status: Chronic Code(s): I10 - Essential (primary) hypertension (10) Venous stasis: Status: Acute Code(s): I87.8 - Other specified disorders of veins (11) Chronic kidney disease, stage 3b: Status: Acute Code(s): N18.32 - Chronic kidney disease, stage 3b (12) Mild cognitive impairment: Status: Acute Code(s): G31.84 - Mild cognitive impairment of uncertain or unknown etiology (13) Systemic lupus erythematosus: Status: Acute Code(s): M32.9 - Systemic lupus erythematosus, unspecified Plan 88 year old female with below past medical history hospitalized for right total hip replacement 10/02/[address] Miller, admitted to TCU with debility, here for rehabilitation, strengthening, prior to discharge home with . Debility - PT/OT. Pain - Tylenol 1000mg q8, Tramadol 50mg q6 prn pain (1-10). Bowel - senna/colace 1 tablet bid, Magnesium citrate 300ml daily prn. Adult immunization - Administer pneumonia vaccine, covid vaccine, flu vaccine as appropriate. DVT prophylaxis - Aspirin 81mg bid thru 10/30/2023. Calcium deficiency - Calcium 500mg daily. Dry eyes - Artificial tears 2 gtt ou daily. Vitamin D deficiency - D3 25mcg daily. Hyperlipidemia - Welchol 1250mg daily. Nutrition - Ensure Surgery 237ml tidcm. GERD - Famotidine 20mg daily. Iron deficiency anemia - Ferrous sulfate 325mg bid. Systemic Lupus Erythematosus - Plaquenil 200mg daily, Folic acid 1mg daily. HFpEF - Losartan 25mg daily, Furosemide 20mg daily. Hypothyroidism - Levothyroxine 25mcg/50mcg alternating. Atopic Dermatitis - Elidel topical qhs. Medications at Discharge Home Medications levothyroxine 25 mcg tablet 25 mcg PO MOTUWETHFR thyroid 12/13/15 colesevelam 625 mg tablet (WelChol) 1,250 mg PO DINNER diabetes 12/15/19 cholecalciferol (vitamin D3) 25 mcg (1,000 unit) tablet 1,000 unit PO DAILY supplement 08/24/20 calcium carbonate 500 mg calcium (1,250 mg) tablet 500 mg PO DAILY supplement 06/15/22 artifi.tears(hypromellose)(PF) 1.7 % eye drops with applicator 2 drp ophthalmic (eye) .AM eye health 08/09/22 levothyroxine 50 mcg capsule 50 mcg PO SUSA thyroid 02/20/23 furosemide 40 mg tablet 20 mg (1/2 x 40 mg) PO DAILY Please don't refill until pt calls: she has GOBS. #90 tabs 06/28/23 hydroxychloroquine 200 mg tablet 200 mg PO DAILY Health 07/22/23 pimecrolimus 1 % topical cream 1 applic topical QHS lupus of the skin 08/14/23 folic acid 1 mg tablet 1 mg PO DAILY General health 09/20/23 losartan 25 mg tablet 25 mg PO DAILY Heart health #90 tabs 09/27/23 acetaminophen 500 mg tablet 1,000 mg (2 x 500 mg) PO Q8 Pain #1 TAB 10/04/23 famotidine 20 mg tablet 20 mg PO DAILY Reflux #0 tabs 10/04/23 acetaminophen 500 mg tablet 1,000 mg (2 x 500 mg) PO Q8 #0 tabs 10/10/23 aspirin 81 mg chewable tablet 81 mg PO BIDCM Anticoagulant 17 days #34 tabs 10/10/23 polysaccharide iron complex 150 mg iron capsule (Ferrex) 150 mg PO BIDCM 30 days #60 caps 10/10/23 sennosides 8.6 mg-docusate sodium 50 mg tablet (Stool Softener-Stimulant Laxative) 1 tab PO BID 30 days #60 tabs 10/10/23 tramadol 50 mg tablet 50 mg PO Q6H PRN pain 1-10 7 days #28 tabs 10/10/23 Hospital Course Operations total hip replacement (Right.) Procedures None Summary of Care Provided Minutes Spent on Discharge: 35 Hospital Course: 88 year old female with below past medical history hospitalized for right total hip replacement 10/02/[address] Miller, admitted to TCU with debility, here for rehabilitation, strengthening, prior to discharge home with . Discharge 10/13/2023 Home with spouse and [facility] PT/OT/TOOL PROFILING MACHINE SET UP OPERATOR, pending outcome of appeal Physical Exam Const alert General Appearance: cooperative HEENT normocephalic Eyes PERRL and EOMs intact bilaterally Neck supple, no JVD and no carotid bruits Resp normal respiratory effort, normal air movement and clear to auscultation bilaterally Cardio regular rate and regular rhythm GI normal to inspection, nondistended, normoactive bowel sounds, non-tender and non-distended Extremity normal capillary refill General Extremity: Negative for edema Skin no rashes or lesions noted General Skin Exam: no breakdown Psych affect normal Appearance: appropriate Weight / BMI Weight Weight: 100.471 kg Body Mass Index (BMI) 41.8 ABG / Lab / Microbiology Data 10/10/23 05:09 10/07/23 05:25 Laboratory: Laboratory Results - last 24 hr 10/08/23 05:25: Vit D 1,25-Dihydroxy 32.6 10/10/23 05:09: Hgb 7.8 L, Hct 24.3 L Microbiology: Microbiology 10/10/23 04:50 Nasal Secretion SARS-CoV-2 Antigen (Rapid) - Final 10/06/23 20:35 Urine, Catheterized Urine Culture - Final Culture exhibits no growth. 10/06/23 10:36 Urine, Clean Catch Urine Culture - Final Culture exhibits no growth. 10/07/23 05:40 Nasal Secretion SARS-CoV-2 Antigen (Rapid) - Final 10/06/23 12:00 Stool Stool Occult Blood (YONAS) - Final D/C Instructions Discharge Diet: No restrictions Discharge Activity: Return to Normal Activity, May Shower and Use Walker Weight Bearing Status: Weight bearing as tolerated Call your doctor if you observe: Fever of 101 or Higher, Inability to urinate, Inability to have a bowel movement, Shortness of breath, Dizziness, Fainting spells, Swelling in the ankles, Chest pain and Uncontrolled pain Additional Instructions: Discharge 10/13/2023 Home with spouse and [facility] PT/OT/TOOL PROFILING MACHINE SET UP OPERATOR, pending outcome of appeal Please Follow Up With: Jim Smalls PA-C When: As scheduled. Meaningful Use Info Meaningful Use Diagnoses (Choose all that apply): None applicable Discharge Plan Admission Admit Date/Time: 10/04/23 14:50 Primary Reason for Your Visit: Debility. Attending Provider: Del Plasencia Chi Primary Care Provider: Dori Boyd Instructions Additional Instructions / Restrictions: Discharge 10/13/2023 Home with spouse and [facility] PT/OT/TOOL PROFILING MACHINE SET UP OPERATOR, pending outcome of appeal Discharge Orders/Prescriptions Prescriptions: New acetaminophen 500 mg Tablet 1,000 mg PO Q8 Qty: 0 0RF polysaccharide iron complex [Ferrex 150] 150 mg iron Capsule 150 mg PO BIDCM 30 Days Qty: 60 0RF sennosides-docusate sodium [Stool Softener-Stimulant Laxat] 8.6-50 mg Tablet 1 tab PO BID 30 Days Qty: 60 0RF tramadol 50 mg Tablet 50 mg PO Q6H PRN (Reason: pain 1-10) 7 Days Qty: 28 0RF Continued colesevelam [WelChol] 625 mg tablet 1,250 mg PO DINNER Rx Instructions: 1,250 mg orally daily i; calcium carbonate 500 mg calcium (1,250 mg) tablet 500 mg PO DAILY artifi.tears(hypromellose)(PF) 1.7 % drops with applicator 2 drp ophthalmic (eye) .AM hydroxychloroquine 200 mg tablet 200 mg PO DAILY Patient Comments: TAKE 1 TABLET DAILY levothyroxine 25 MCG tablet 25 mcg PO MOTUWETHFR Patient Comments: thyroid cholecalciferol (vitamin D3) 25 mcg (1,000 unit) tablet 1,000 unit PO DAILY Patient Comments: supplement levothyroxine 50 mcg Capsule 50 mcg PO SUSA pimecrolimus 1 % cream 1 applic TOPICAL QHS folic acid 1 mg tablet 1 mg PO DAILY famotidine 20 mg Tablet 20 mg PO DAILY Qty: 0 0RF aspirin 81 mg Tablet,Chewable 81 mg PO BIDCM 17 Days Qty: 34 0RF furosemide 40 mg tablet 20 mg PO DAILY Qty: 90 3RF losartan 25 mg tablet 25 mg PO DAILY Qty: 90 3RF Discontinued tramadol 50 mg tablet 25 - 50 mg PO TID PRN (Reason: Pain) Patient Comments: TAKE 1/2 TO 1 TABLET BY MOUTH 3 TIMES A DAY NEEDED FOR PAIN ferrous sulfate [iron] 325 mg (65 mg iron) tablet 325 mg PO BID Ensure Surgery 0.08-1.4 gram-kcal/mL Liquid 237 ml PO TIDCM Qty: 0 0RF tramadol 50 mg tablet 50 mg PO Q6H PRN (Reason: pain) 3 Days Qty: 10 0RF No Action acetaminophen 500 mg Tablet 1,000 mg PO Q8 Qty: 1 0RF Referrals / Follow Up: Dori Boyd DO [Primary Care Provider] - Disposition Disposition (needs filled in before D/C Order can be placed): Home Health Service
[2023-10-10] MEDS: PIMECROLIMUS 30 GM CREAM..G. TOPICAL (21:05)
[2023-10-10 21:18] VITALS: O2SAT 97
[2023-10-11] MEDS: Levothyroxine 25 MCG TABLET PO (05:45)
[2023-10-11] MEDS: Acetaminophen 500 MG Tablet 1000 MG PO ×3 (05:46→22:18)
[2023-10-11 05:53] LABS: Hematocrit 24.9 % (37-47); Hemoglobin 8.2 g/dL (12.0-15.0)
[2023-10-11] MEDS: Ensure Plus High Protein 120 ML LIQUID PO ×2 (08:17→16:49)
[2023-10-11] MEDS: Iron Polysaccharide Complex 150 MG CAPSULE PO ×2 (08:17→16:49)
[2023-10-11] MEDS: Aspirin 81 MG TAB.CHEW PO ×2 (08:17→16:49)
[2023-10-11] MEDS: Folic Acid 1 MG Tablet PO (08:18)
[2023-10-11] MEDS: Hydroxychloroquine 200 MG Tablet PO (08:18)
[2023-10-11] MEDS: Calcium (Elemental) 500 MG Tablet PO (08:18)
[2023-10-11] MEDS: Cholecalciferol (VIT D3) 25 MCG TABLET (1,000 UNITS) PO (08:18)
--- NOTE | 2023-10-11 08:52 | NURSING ---
Windows Security Engineer Note; MDS for 10/11/2023 Complete
--- NOTE | 2023-10-11 09:50 | CASEMGMT ---
Addendum entered by Joanie Alcocer 10/11/23 16:35: ST requested to be added for HHC. UMAIR phoned [facility] and updated order. Addendum entered by Joanie Alcocer 10/11/23 11:26: Addendum entered by Joanie Alcocer 10/11/23 10:58: SW phoned [facility] again. Spoke with rep whom stated they have no fax number on file - this worker provided correct fax number. Fax received and sent to HIM to process. Original Note: Social Work SW followed up with pt on appeal status and HHC preference. SW reexplained the pt may not receive appeal results until day of DC or later. Explained [facility] has not yet fax[facility] over the medical records request, which also delays the outcome results. Inquired about pt remaining until outcome is received or still planning to DC 10/13 d/t potential OOP cost. Pt stated she will still DC as she cannot afford OOP cost. UMAIR inquired about HHC preference. Pt's first choice is [facility], then [facility]. SW to keep pt informed. UMAIR contacted [facility] but could not speak with a live rep - left at 0950 requesting return call and fax of medical records to correct fax number. Will continue to call if no success in a timely manner. UMAIR phoned [facility] for PT/OT/DRIVER ALAN Delgadillo
[2023-10-11] MEDS: Famotidine 20 MG Tablet PO (11:12)
[2023-10-11] MEDS: Losartan Potassium 25 MG Tablet PO (11:12)
[2023-10-11] MEDS: Furosemide 20 MG Tablet PO (11:12)
[2023-10-11] MEDS: Senna/Docusate Sodium 1 Tablet PO (11:24)
--- NOTE | 2023-10-11 12:23 | CASEMGMT ---
BIMS (07/17) and PHQ9 () interviews completed on this date for MDS assessment. ANDREW Ocampo
[2023-10-11 14:08] VITALS: BP 123/97; PULSE 91; RESP 18; TEMP 36.5; O2SAT 99
[2023-10-11] MEDS: PIMECROLIMUS 30 GM CREAM..G. TOPICAL (22:19)
[2023-10-12] MEDS: Acetaminophen 500 MG Tablet 1000 MG PO ×3 (05:53→22:35)
[2023-10-12] MEDS: Levothyroxine 50 MCG Tablet PO (05:53)
[2023-10-12 08:15] LABS: Absolute Neutrophil Count 1.5 X10^3/uL (2.0-7.7); Basophil# 0.02 X10^3/uL; Basophil% 0.6 % (0-1); Eosinophil# 0.31 X10^3/uL; Eosinophils% 9.8 % (0-5); Hematocrit 25.3 % (37-47); Hemoglobin 8.1 g/dL (12.0-15.0); Mean Corpuscular Hgb 30.2 pg (27.0-32.0); Mean Corpuscular Volume 94.4 fL (81-99); Mean Platelet Vol. 8.9 fl (6.2-12.0); Monocyte# 0.69 X10^3/uL; Monocyte% 21.9 % (0-10); NRBC Flagged by Analyzer 0 % (0-5); Neutrophil # 1.51 X10^3/uL (2.7-7.7); Neutrophil % 48.1 % (47-70); POSITIVE DIFFERENTIAL YES; Platelet Count 306 K/mm3 (150-450); RBC Distribution Width CV 13.9 % (11.6-14.6); Red Blood Count 2.68 M/mm3 (4.2-5.4); White Blood Count 3.2 K/mm3 (4.4-11.0)
[2023-10-12 08:27] LABS: Anion Gap 4 (5-15); BUN 39 mg/dL (7-18); Calcium,Total 8.8 mg/dL (8.5-10.1); Chloride 104 mmol/L (98-107); Creatinine, Serum 1.26 mg/dL (0.55-1.02); EST Glomerular Filtration Rate 43 mL/min (>60); Est Glom Filt Rate - Afr Amer 52 mL/min (>60); Glucose 88 mg/dL (74-106); Potassium 4.7 mmol/L (3.5-5.1); Sodium Level 133 mmol/L (136-145)
[2023-10-12] MEDS: Ensure Plus High Protein 120 ML LIQUID PO ×2 (09:36→17:15)
[2023-10-12] MEDS: Aspirin 81 MG TAB.CHEW PO ×2 (09:36→17:14)
[2023-10-12] MEDS: Iron Polysaccharide Complex 150 MG CAPSULE PO ×2 (09:37→17:15)
[2023-10-12] MEDS: Cholecalciferol (VIT D3) 25 MCG TABLET (1,000 UNITS) PO (09:37)
[2023-10-12] MEDS: Hydroxychloroquine 200 MG Tablet PO (09:37)
[2023-10-12] MEDS: Folic Acid 1 MG Tablet PO (09:37)
[2023-10-12] MEDS: Calcium (Elemental) 500 MG Tablet PO (09:37)
[2023-10-12] MEDS: Tuberculin,Purif.prot.deriv. 50 TU/ML Vial 0.100000000000000006 ML ID (10:39)
[2023-10-12] MEDS: Losartan Potassium 25 MG Tablet PO (10:39)
[2023-10-12] MEDS: Furosemide 20 MG Tablet PO (10:39)
[2023-10-12] MEDS: Famotidine 20 MG Tablet PO (10:39)
[2023-10-12 15:40] VITALS: BP 109/54; PULSE 88; RESP 16; TEMP 37.5; O2SAT 97
--- NOTE | 2023-10-12 18:31 | CASEMGMT ---
Social Work Patient filed an appeal with her insurance. Pt was notified by [employer] that appeal has been denied. [employer] online outcome states agreement with termination. Pt was told by insurance follow up representative to d/c prior to 12:00 to avoid costs. SW spoke with patient's nurse who reports patient and spouse are aware and patient is having her transport her home between 10:00 and 11:00 tomorrow. Patient to discharge home with [facility] services. Juliet Rondon PRENATAL NURSE, PARK MANAGER
[2023-10-12] MEDS: PIMECROLIMUS 30 GM CREAM..G. TOPICAL (22:36)
--- NOTE | 2023-10-12 23:39 | NURSING ---
Pt crossing ankle when sitting on edge of bed after toileting x2. Instructed pt each time legs are not to be crossed at the ankles or knees to maintain hip precautions. Further education needed. Will continue to monitor.
[2023-10-13] MEDS: Levothyroxine 50 MCG Tablet PO (06:15)
[2023-10-13] MEDS: Acetaminophen 500 MG Tablet 1000 MG PO (06:16)
[2023-10-13] MEDS: Iron Polysaccharide Complex 150 MG CAPSULE PO (08:05)
[2023-10-13] MEDS: Folic Acid 1 MG Tablet PO (08:05)
[2023-10-13] MEDS: Ensure Plus High Protein 120 ML LIQUID PO (08:05)
[2023-10-13] MEDS: Aspirin 81 MG TAB.CHEW PO (08:05)
[2023-10-13] MEDS: Losartan Potassium 25 MG Tablet PO (08:06)
[2023-10-13] MEDS: Cholecalciferol (VIT D3) 25 MCG TABLET (1,000 UNITS) PO (08:06)
[2023-10-13] MEDS: Hydroxychloroquine 200 MG Tablet PO (08:06)
[2023-10-13] MEDS: Calcium (Elemental) 500 MG Tablet PO (08:06)
[2023-10-13] MEDS: Famotidine 20 MG Tablet PO (08:07)
[2023-10-13] MEDS: Furosemide 20 MG Tablet PO (08:07)
[2023-10-13 10:46] VITALS: BP 110/62; PULSE 77; RESP 16; TEMP 37.1; O2SAT 98
--- NOTE | 2023-10-15 14:15 | MDS.RN ---
Information for the mds was obtained from review of the clinical record, interview of resident, staff, and direct observation of resident's care.
== END 2023-10-13 10:49 | disposition home health service (06) | DRG 560 ==
PROVIDERS: Admitting Provider Family Medicine Geriatric Medicine; PCP Internal Medicine; Visit Provider Family Medicine Geriatric Medicine
DX: Z47.1 Aftercare following joint replacement surgery (principal); I13.0 Hypertensive heart and chronic kidney disease with heart failure and stage 1 through stage 4 chronic kidney disease, or unspecified chronic kidney disease; I25.110 Atherosclerotic heart disease of native coronary artery with unstable angina pectoris; I50.32 Chronic diastolic (congestive) heart failure; E11.22 Type 2 diabetes mellitus with diabetic chronic kidney disease; E03.9 Hypothyroidism, unspecified; D50.9 Iron deficiency anemia, unspecified; E11.620 Type 2 diabetes mellitus with diabetic dermatitis; N18.32 Chronic kidney disease, stage 3b; M32.9 Systemic lupus erythematosus, unspecified; M06.9 Rheumatoid arthritis, unspecified; K21.9 Gastro-esophageal reflux disease without esophagitis; G31.84 Mild cognitive impairment of uncertain or unknown etiology; E78.00 Pure hypercholesterolemia, unspecified; E55.9 Vitamin D deficiency, unspecified; L20.9 Atopic dermatitis, unspecified; Z95.5 Presence of coronary angioplasty implant and graft; Z96.641 Presence of right artificial hip joint; Z79.82 Long term (current) use of aspirin; G89.29 Other chronic pain; Z79.899 Other long term (current) drug therapy; Z79.890 Hormone replacement therapy; Z28.21 Immunization not carried out because of patient refusal
CPT/HCPCS: 36415; 80048; 81001; 82274; 82652; 83540; 83930; 83935; 84300; 85014; 85018; 85025; 87086; 87811; 92507; 92523; 97110; 97116; 97129; 97130; 97162; 97166; 97530; 97535; 97802

== ENCOUNTER → 2023-10-18 | Outpatient (CLI) | payer MEDICARE, SELFPAY ==
[2019-02-27 14:50] VITALS: BMI 22.1
--- NOTE | 2023-10-18 15:13 | VDLE_ITS ---
Reason For Study: Right leg pain RIGHT LEFT GSV is normal. CFV is compressible, spontaneous, phasic, CFV is compressible, spontaneous, phasic, competent, and demonstrates normal competent and demonstrates normal augmentation. augmentation. FV is compressible, spontaneous, phasic, competent and demonstrates normal augmentation. POP V is compressible, spontaneous, phasic, competent and demonstrates normal augmentation. Acute deep vein thrombosis is noted in the T/P Trunk. It is dilated and NONCOMPRESSIBLE. PTV is compressible. RT PerV is compressible. Procedure This is a venous duplex using B-mode, color flow and spectral Doppler. Exam performed in department. A preliminary report was called and/or faxed to Wendy [place]. VL/Venous Duplex US, Unilateral Interpretation Summary Acute deep vein thrombosis is noted in the right tibio-peroneal trunk. Ordering Physician: Dori Boyd Referring Physician: Dori Boyd Performed By: Melissa Ortega RVT
== END | disposition home or self-care (01) ==
LOC: CVS 15:08
PROVIDERS: PCP Internal Medicine; Referring Provider Internal Medicine; Visit Provider Internal Medicine
DX: M79.661 Pain in right lower leg (principal)
CPT/HCPCS: 93971

== ENCOUNTER → 2023-10-24 | Outpatient (CLI) | payer MEDICARE, SELFPAY ==
[2019-02-27 14:50] VITALS: BMI 22.1
[2023-10-24 14:36] LABS: Absolute Lymphocyte Count 0.64 X10^3/uL (0.83-4.51); Absolute Neutrophil Count 2.6 X10^3/uL (2.0-7.7); Basophil# 0.02 X10^3/uL; Basophil% 0.5 % (0-1); Eosinophil# 0.21 X10^3/uL; Eosinophils% 5.3 % (0-5); Hematocrit 29.4 % (37-47); Hemoglobin 8.9 g/dL (12.0-15.0); Lymphocyte # 0.64 X10^3/ul (0.83-4.51); Lymphocyte % 16.3 % (19-41); Mean Corp Hgb Conc 30.3 g/dL (32-36); Mean Corpuscular Hgb 29.6 pg (27.0-32.0); Mean Corpuscular Volume 97.7 fL (81-99); Mean Platelet Vol. 9.2 fl (6.2-12.0); Monocyte# 0.46 X10^3/uL; Monocyte% 11.7 % (0-10); NRBC Flagged by Analyzer 0 % (0-5); Neutrophil # 2.59 X10^3/uL (2.7-7.7); Neutrophil % 65.9 % (47-70); Platelet Count 289 K/mm3 (150-450); RBC Distribution Width CV 15.3 % (11.6-14.6); RBC Distribution Width SD 54.3 fl (35.1-43.9); Red Blood Count 3.01 M/mm3 (4.2-5.4); White Blood Count 3.9 K/mm3 (4.4-11.0)
== END | disposition home or self-care (01) ==
LOC: LABSPEC 14:26
PROVIDERS: PCP Internal Medicine; Referring Provider Internal Medicine; Visit Provider Internal Medicine
DX: I82.409 Acute embolism and thrombosis of unspecified deep veins of unspecified lower extremity (principal)
CPT/HCPCS: 85025

== ENCOUNTER → 2023-10-29 | Outpatient (CLI) | payer MEDICARE, SELFPAY ==
[2019-02-27 14:50] VITALS: BMI 22.1
--- NOTE | 2023-10-29 12:57 | VDLE_ITS ---
Reason For Study: Right leg DVT RIGHT LEFT GSV is normal. CFV is compressible, spontaneous, phasic, CFV is compressible, spontaneous, phasic, competent, and demonstrates normal competent and demonstrates normal augmentation. augmentation. FV is compressible, spontaneous, phasic, competent and demonstrates normal augmentation. POP V is compressible, spontaneous, phasic, competent and demonstrates normal augmentation. Acute deep vein thrombosis is noted in the T/P Trunk. It is dilated and NONCOMPRESSIBLE. PTV is compressible. RT PerV is compressible. Procedure This is a venous duplex using B-mode, color flow and spectral Doppler. Exam performed in department. Compared to 10/18/2023. A preliminary report was called and/or faxed to Dr. Boyd. VL/Venous Duplex US, Unilateral Interpretation Summary Acute deep vein thrombosis is noted in the right tibio-peroneal trunk. Negative for propagation Ordering Physician: Dori Boyd Referring Physician: Dori Boyd Performed By: Melissa Ortega RVT
== END | disposition home or self-care (01) ==
LOC: CVS 12:52
PROVIDERS: PCP Internal Medicine; Referring Provider Internal Medicine; Visit Provider Internal Medicine
DX: I82.441 Acute embolism and thrombosis of right tibial vein (principal); I82.451 Acute embolism and thrombosis of right peroneal vein
CPT/HCPCS: 93971

== ENCOUNTER → 2023-11-15 | Outpatient (CLI) | payer MEDICARE, SELFPAY ==
[2019-02-27 14:50] VITALS: BMI 22.1
[2023-11-15 17:02] LABS: Absolute Lymphocyte Count 0.72 X10^3/uL (0.83-4.51); Absolute Neutrophil Count 2.6 X10^3/uL (2.0-7.7); Basophil# 0.01 X10^3/uL; Basophil% 0.2 % (0-1); Eosinophil# 0.15 X10^3/uL; Eosinophils% 3.7 % (0-5); Hematocrit 33.1 % (37-47); Hemoglobin 10.1 g/dL (12.0-15.0); Lymphocyte # 0.72 X10^3/ul (0.83-4.51); Lymphocyte % 17.8 % (19-41); Mean Corp Hgb Conc 30.5 g/dL (32-36); Mean Corpuscular Hgb 29.4 pg (27.0-32.0); Mean Corpuscular Volume 96.2 fL (81-99); Mean Platelet Vol. 9.7 fl (6.2-12.0); Monocyte# 0.59 X10^3/uL; Monocyte% 14.6 % (0-10); NRBC Flagged by Analyzer 0 % (0-5); Neutrophil # 2.56 X10^3/uL (2.7-7.7); Neutrophil % 63.5 % (47-70); Platelet Count 207 K/mm3 (150-450); RBC Distribution Width CV 14.4 % (11.6-14.6); RBC Distribution Width SD 50.4 fl (35.1-43.9); Red Blood Count 3.44 M/mm3 (4.2-5.4)
== END | disposition home or self-care (01) ==
LOC: LABSPEC 15:38
PROVIDERS: PCP Internal Medicine; Referring Provider Internal Medicine; Visit Provider Internal Medicine
DX: I82.409 Acute embolism and thrombosis of unspecified deep veins of unspecified lower extremity (principal)
CPT/HCPCS: 85025

== ENCOUNTER → 2023-11-20 | Outpatient (CLI) | payer MEDICARE, SELFPAY ==
[2019-02-27 14:50] VITALS: BMI 22.1
--- NOTE | 2023-11-20 13:43 | VDLE_ITS ---
Reason For Study: HX RLE DVT RIGHT LEFT GSV is normal. FV is compressible, spontaneous, phasic, CFV is compressible, spontaneous, competent competent and demonstrates normal and demonstrates pulsatile venous flow. augmentation. FV is compressible, spontaneous, competent and demonstrates pulsatile venous flow. POP V is compressible, spontaneous, and phasic. Acute deep vein thrombosis is noted in the T/P Trunk. It is dilated and NONCOMPRESSIBLE. Diminished flow is noted with color doppler in T/P Trunk. Acute deep vein thrombosis is noted in the PTV. It is dilated and NONCOMPRESSIBLE. Acute deep vein thrombosis is noted in the Per V. It is dilated and NONCOMPRESSIBLE. Procedure This is a venous duplex using B-mode, color flow and spectral Doppler. Exam performed in department. The exam was diagnostic. VL/Venous Duplex US, Unilateral Interpretation Summary Acute deep vein thrombosis is noted in the right tibio-peroneal trunk vein, pos terior tibial vein, peroneal vein Ordering Physician: Dori Boyd Referring Physician: Dori Boyd Performed By: Kole Carter RVT
== END | disposition home or self-care (01) ==
LOC: CVS 13:42
PROVIDERS: PCP Internal Medicine; Referring Provider Internal Medicine; Visit Provider Internal Medicine
DX: I82.491 Acute embolism and thrombosis of other specified deep vein of right lower extremity (principal)
CPT/HCPCS: 93971

== ENCOUNTER 2023-12-12 15:00 | Outpatient (RCR) | payer MEDICARE, SELFPAY ==
[2019-02-27 14:50] VITALS: BMI 22.1
--- NOTE | 2023-11-22 12:44 | HP.PTEVAL ---
Patient's Visit Information Visit Information Visit Information: HUBERT DAVIS is a 88 year old F referred to Physical Therapy by Dr. Hudson Miller MD with a diagnosis of R hip OA s/p ant NOLA 10/02/23. Date of Evaluation: 11/22/23 Physical Therapist: Tejas Rodriguez, SENA, OCS, CSCS Visit Plan Frequency: 2x /Week Duration: 4-6 Weeks Plan: 2x/week for 4-6 weeks for 1. walking balance without AD 2. steps 3. Gym based strength to I silver sneakers program Pt has blood clot R lower leg , no STM or rollout or heel raising exercises right now please. Subjective Subjective: Had R NOLA 8 weeks ago 10/02/23. Hospital for a week or two. It helped. Has been home for weeks and having a home therapist for two weeks. last 4 weeks has been increasing activity. Went to refrigerator yesterday and made lunch and supper. Took dog out. Lives in a tri level home with rails. Uses cane at times and whw walker at times. Showering herself but it takes longer. lives with her. Incission is anterior. Doing exercises at home including: sink exercises and chair exercises. Has silver sneakers. Did no Nustep, TM walking. Has blood clot under R knee since last Saturday. is on aspirin.(was on blood thinner for 5 days) Sleep is good. Not employed. Hobbies: walking dog. Pain R hip: Pain Intensity (Out of 10): 0 Pain Intensity Range: 0 and 3 Comment: aches with walking too much Objective Objective: Walks into PT mod I with wh walker. Trasnfer bed and chair I. Steps prefers to use L but can use R ascending without much discomfort. Needs railing x1. fearful of dislocating Able to ambulate for fGa without AD today, short L step length and mild R trendelenberg gait pattern noticed but safe. R hip AROM 90 flexion 8 ext, 15 abd, PROM to 105 flexion and 10 ext. L hip 110 flexion and 12 extension. reflexes 2/3 patella and achilles Sensation LE WNL to gross light touch. Incision is anterior at R hip and dry with mild scar tissue. Reviewed anterior precautions today. strength R hip flexion 3+ vs 4- L, ext 3 B, abd 3 R and 3+ L. knee flexion 3+ R and 4- L, knee extension 3+ R and 4 L. ankles 4 B. Balance/Special Test Scores Functional Gait Assessment Score: 22 % Disability: 26.6700 WOMAC Total Score: 45 WOMAC Percentatge: 53.1300 Goals Goal 1:: walk without AD into adn out of clinic safely Goal Time Frame: 4-6 Weeks Goal 2:: 24/30 FGA to reduce fall risk Goal Time Frame: 4-6 Weeks Goal 3:: steps recirpocally with one rail without discomfort Goal Time Frame: 4-6 Weeks Goal 4:: I appropriate silver sneakers ex in gym for LE strength and general strength Goal Time Frame: 4-6 Weeks Rehabilitation Potential Physical Therapy Diagnosis: weakness, and gait deficits limiting comfortable funciton Rehabilitation Potential: Good Anticipated Interventions Patient/Client Instruction: Educate patient on: Condition and Plan of Care For the Purpose of:: To decrease pain, To increase ROM, To improve nutrient delivery to tissue, To improve muscle performance and motor function, To increase tolerance to activity/condition/position, To improve ability of physical actions for home/community/work/leisure and To improve gait and locomotor functions Therapeutic Exercise to Include: Strength training, Flexibilty training, Gait and locomotor training, Passive ROM and Active ROM For the Purpose of:: To decrease pain, To decrease swelling/inflammation, To increase ROM, To improve nutrient delivery to tissue, To improve muscle performance and motor function, To increase tolerance to activity/condition/position and To improve ability of physical actions for home/community/work/leisure Functional Training to Include: Gait training For the Purpose of:: To decrease pain, To improve nutrient delivery to tissue and To increase oxygenation perfusion Text: Thank you for the opportunity to evaluate your patient. For Medicare and Medicare HMO plans, please review the plan of care and approve it. It will need to be FAXED BACK to us at [phone] for Medicare purposes. For Medicare only, by signing this I certify the plan of care. Please let me know if there are questions or concerns regarding this plan of care. Physician Signature: Date:
--- NOTE | 2023-12-19 15:35 | HP.PTDCSUM ---
Discharge Summary D/C summary: It has been my pleasure to treat HUBERT DAVIS referred by Dr. Hudson Miller MD, with the diagnosis of R hip OA s/p ant NOLA 10/02/23 for a total of 8 visit(s). Discharge Date: 12/19/23 Please see the following information for a summary of their discharge status. Subjective Subjective: Not sure if reeady to be done. R leg is achy often and she blames it on the weather, still has blood clot in lowwer leg which is improving. Knee is hurting. Hip is feeling OK and has healed well. Pain level is more lower leg ache than any pain. Also has it in her arthrtic wrists. Sleeping OK Activities at home shows easy fatigue and need to sit. Starting to do laundry and doing steps but needs rest. Is on iron pills. Pain R hip: Pain Intensity (Out of 10): 0 Overall Improvement % Improvement: 20 Objective Objective/Function: R knee hurts with WB, might check with doctor on this. Hip is feeling good. Walks well with short R stance time and short steps overall but safe adn I. Steps reciprocal but weaker R with two rails today. Improved balance. Wants to go on her own vs continued PT. Goals Goal 1:: walk without AD into adn out of clinic safely Goal Progress: cane, progressing Goal 2:: FGA to reduce fall risk Goal Progress: Goal Met Goal 3:: steps recirpocally with one rail without discomfort Goal Progress: Progressing Goal 4:: I appropriate silver sneakers ex in gym for LE strength and general strength Goal Progress: Goal Met Plan Plan: d/c at patient request. D/C Information Discharge Comments: at pt request. d/c sentence: If there are questions or concerns regarding this patient's physical therapy, please feel free to call me at [phone]. Thank you for the referral of this patient. Sincerely, Tejas Rodriguez, DPT, OCS, CSCS Balance/Gait/Functional tests Balance/Special Test Scores Functional Gait Assessment Score: 25 % Disability: 16.6700 WOMAC Total Score: 24 WOMAC Percentage: 75.0000 Improvement % Improvement: 20
== END 2023-12-12 19:00 | disposition home or self-care (01) ==
LOC: PT 15:00
PROVIDERS: PCP Internal Medicine; Referring Provider Specialist; Visit Provider Specialist
DX: M16.11 Unilateral primary osteoarthritis, right hip (principal); Z96.641 Presence of right artificial hip joint; Z47.1 Aftercare following joint replacement surgery
CPT/HCPCS: 97110; 97161

== ENCOUNTER → 2023-12-17 | Outpatient (CLI) | payer MEDICARE, SELFPAY ==
[2019-02-27 14:50] VITALS: BMI 22.1
[2023-12-17 17:47] LABS: Hematocrit 35.7 % (37-47); Hemoglobin 11.2 g/dL (12.0-15.0); Mean Corp Hgb Conc 31.4 g/dL (32-36); Mean Corpuscular Hgb 29.2 pg (27.0-32.0); Mean Platelet Vol. 9.5 fl (6.2-12.0); Platelet Count 208 K/mm3 (150-450); RBC Distribution Width CV 13.6 % (11.6-14.6); RBC Distribution Width SD 46.3 fl (35.1-43.9); Red Blood Count 3.84 M/mm3 (4.2-5.4); White Blood Count 4.1 K/mm3 (4.4-11.0)
[2023-12-17 18:07] LABS: Ferritin 112 ng/mL (8-252); Iron 40 ug/dL (50-170)
== END | disposition home or self-care (01) ==
LOC: MTLAB 16:10
PROVIDERS: PCP Internal Medicine; Referring Provider Internal Medicine Gastroenterology; Visit Provider Internal Medicine Gastroenterology
DX: K92.1 Melena (principal)
CPT/HCPCS: 36415; 82728; 83540; 85027

== ENCOUNTER → 2024-01-06 | Outpatient (CLI) | payer MEDICARE, SELFPAY ==
[2019-02-27 14:50] VITALS: BMI 22.1
== END | disposition home or self-care (01) ==
LOC: LABSPEC 16:31
PROVIDERS: PCP Internal Medicine; Referring Provider Physician Assistant; Visit Provider Physician Assistant
DX: N39.0 Urinary tract infection, site not specified (principal); R30.0 Dysuria
CPT/HCPCS: 87077; 87086; 87088; 87186

== ENCOUNTER → 2024-01-29 | Outpatient (CLI) | payer MEDICARE, SELFPAY ==
[2019-02-27 14:50] VITALS: BMI 22.1
[2024-01-29 18:14] LABS: Absolute Lymphocyte Count 0.76 X10^3/uL (0.83-4.51); Absolute Neutrophil Count 2.8 X10^3/uL (2.0-7.7); Basophil# 0.02 X10^3/uL; Basophil% 0.4 % (0-1); Eosinophil# 0.18 X10^3/uL; Hemoglobin 11.4 g/dL (12.0-15.0); Lymphocyte # 0.76 X10^3/ul (0.83-4.51); Lymphocyte % 17.1 % (19-41); Mean Corp Hgb Conc 31.7 g/dL (32-36); Mean Corpuscular Hgb 29.1 pg (27.0-32.0); Mean Corpuscular Volume 91.8 fL (81-99); Monocyte% 15.7 % (0-10); NRBC Flagged by Analyzer 0 % (0-5); Neutrophil # 2.78 X10^3/uL (2.7-7.7); Neutrophil % 62.6 % (47-70); Platelet Count 198 K/mm3 (150-450); RBC Distribution Width CV 14.2 % (11.6-14.6); RBC Distribution Width SD 47.7 fl (35.1-43.9); Red Blood Count 3.92 M/mm3 (4.2-5.4); White Blood Count 4.5 K/mm3 (4.4-11.0)
[2024-01-29 18:35] LABS: AST(SGOT) 26 U/L (15-37); Alanine Aminotransfer ALT/SGPT 20 U/L (13-56); Albumin, Serum 3.6 g/dL (3.2-5.0); Alkaline Phosphatase 88 U/L (45-117); Protein, Total 7.6 g/dL (6.4-8.2)
== END | disposition home or self-care (01) ==
LOC: MTLAB 14:55
PROVIDERS: PCP Internal Medicine; Referring Provider Dermatology; Visit Provider Dermatology
DX: L93.1 Subacute cutaneous lupus erythematosus (principal); Z79.899 Other long term (current) drug therapy
CPT/HCPCS: 36415; 80076; 85025

== ENCOUNTER → 2024-03-03 | Outpatient (CLI) | payer MEDICARE, SELFPAY ==
[2019-02-27 14:50] VITALS: BMI 22.1
[2024-03-03 17:44] LABS: Absolute Lymphocyte Count 0.93 X10^3/uL (0.83-4.51); Absolute Neutrophil Count 2.6 X10^3/uL (2.0-7.7); Basophil# 0.01 X10^3/uL; Basophil% 0.2 % (0-1); Eosinophils% 4.6 % (0-5); Hematocrit 34.2 % (37-47); Hemoglobin 10.7 g/dL (12.0-15.0); Lymphocyte # 0.93 X10^3/ul (0.83-4.51); Lymphocyte % 21.5 % (19-41); Mean Corp Hgb Conc 31.3 g/dL (32-36); Mean Corpuscular Hgb 28.7 pg (27.0-32.0); Mean Corpuscular Volume 91.7 fL (81-99); Mean Platelet Vol. 9.8 fl (6.2-12.0); Monocyte# 0.59 X10^3/uL; Monocyte% 13.7 % (0-10); NRBC Flagged by Analyzer 0 % (0-5); Neutrophil # 2.58 X10^3/uL (2.7-7.7); Neutrophil % 59.8 % (47-70); Platelet Count 190 K/mm3 (150-450); RBC Distribution Width CV 14.6 % (11.6-14.6); RBC Distribution Width SD 48.8 fl (35.1-43.9); Red Blood Count 3.73 M/mm3 (4.2-5.4); White Blood Count 4.3 K/mm3 (4.4-11.0)
[2024-03-03 18:16] LABS: AST(SGOT) 22 U/L (15-37); Alanine Aminotransfer ALT/SGPT 22 U/L (13-56); Albumin, Serum 3.6 g/dL (3.2-5.0); Alkaline Phosphatase 90 U/L (45-117); Anion Gap 5 (5-15); BUN 46 mg/dL (7-18); BUN/Creat Ratio 27.2 RATIO (10-20); Calcium,Total 9.3 mg/dL (8.5-10.1); Chloride 105 mmol/L (98-107); Creatinine, Serum 1.69 mg/dL (0.55-1.02); EST Glomerular Filtration Rate 30 mL/min (>60); Est Glom Filt Rate - Afr Amer 37 mL/min (>60); Globulin 3.7 g/dL (2.2-4.2); Glucose 99 mg/dL (74-106); Potassium 4.7 mmol/L (3.5-5.1); Protein, Total 7.3 g/dL (6.4-8.2); Sodium Level 139 mmol/L (136-145)
== END | disposition home or self-care (01) ==
LOC: MTLAB 16:23
PROVIDERS: PCP Internal Medicine; Referring Provider Internal Medicine Rheumatology; Visit Provider Internal Medicine Rheumatology
DX: M06.4 Inflammatory polyarthropathy (principal); R76.8 Other specified abnormal immunological findings in serum; Z79.899 Other long term (current) drug therapy
CPT/HCPCS: 36415; 80053; 85025

== ENCOUNTER → 2024-03-10 | Outpatient (CLI) | payer MEDICARE, SELFPAY ==
[2019-02-27 14:50] VITALS: BMI 22.1
--- NOTE | 2024-03-10 13:56 | VDLE_ITS ---
Reason For Study: HX RLE DVT RIGHT LEFT GSV is normal. CFV is compressible, spontaneous, phasic, CFV is compressible, spontaneous, phasic, competent, and demonstrates normal competent and demonstrates normal augmentation. augmentation. FV is compressible, spontaneous, phasic, competent and demonstrates normal augmentation. POP V is compressible, spontaneous, phasic, competent and demonstrates normal augmentation. T/P Trunk is PARTIALLY COMPRESSIBLE with intraluminal echoes. Flow noted in color and pulsed wave doppler. PTV is compressible. RT PerV is compressible. Procedure This is a venous duplex using B-mode, color flow and spectral Doppler. Exam performed in department. The exam was diagnostic. VL/Venous Duplex US, Unilateral Interpretation Summary Chronic deep vein thrombosis is noted in the right tibio-peroneal trunk. Ordering Physician: Dori Boyd Referring Physician: Dori Boyd Performed By: Kole Carter RVT
== END | disposition home or self-care (01) ==
LOC: CVS 13:55
PROVIDERS: PCP Internal Medicine; Referring Provider Internal Medicine; Visit Provider Internal Medicine
DX: I82.491 Acute embolism and thrombosis of other specified deep vein of right lower extremity (principal)
CPT/HCPCS: 93971

== ENCOUNTER → 2024-03-17 | Outpatient (CLI) | payer MEDICARE, SELFPAY ==
[2019-02-27 14:50] VITALS: BMI 22.1
[2024-03-17 15:42] LABS: Potassium 4.9 mmol/L (3.5-5.1)
== END | disposition home or self-care (01) ==
LOC: LABSPEC 15:29
PROVIDERS: PCP Internal Medicine
DX: E87.5 Hyperkalemia (principal)
CPT/HCPCS: 84132

== ENCOUNTER → 2024-08-11 | Outpatient (CLI) | payer MEDICARE, SELFPAY ==
[2019-02-27 14:50] VITALS: BMI 22.1
[2024-08-11 18:14] LABS: Absolute Lymphocyte Count 0.96 X10^3/uL (0.83-4.51); Absolute Neutrophil Count 4.1 X10^3/uL (2.0-7.7); Basophil# 0.03 X10^3/uL; Basophil% 0.5 % (0-1); Eosinophil# 0.12 X10^3/uL; Hematocrit 34.4 % (37-47); Hemoglobin 11.4 g/dL (12.0-15.0); Lymphocyte # 0.96 X10^3/ul (0.83-4.51); Lymphocyte % 16.1 % (19-41); Mean Corp Hgb Conc 33.1 g/dL (32-36); Mean Corpuscular Hgb 30.8 pg (27.0-32.0); Mean Platelet Vol. 9.4 fl (6.2-12.0); Monocyte# 0.71 X10^3/uL; Monocyte% 11.9 % (0-10); NRBC Flagged by Analyzer 0 % (0-5); Neutrophil # 4.14 X10^3/uL (2.7-7.7); Neutrophil % 69.2 % (47-70); Platelet Count 179 K/mm3 (150-450); RBC Distribution Width CV 14.4 % (11.6-14.6); RBC Distribution Width SD 49.2 fl (35.1-43.9)
[2024-08-11 19:28] LABS: ALB/GLOB Ratio 1.1 RATIO (0.9-2.4); AST(SGOT) 23 U/L (15-37); Alanine Aminotransfer ALT/SGPT 19 U/L (13-56); Albumin, Serum 3.9 g/dL (3.2-5.0); Alkaline Phosphatase 69 U/L (45-117); Anion Gap 4 (5-15); BUN 36 mg/dL (7-18); BUN/Creat Ratio 24.2 RATIO (10-20); Calcium,Total 9.8 mg/dL (8.5-10.1); Chloride 103 mmol/L (98-107); Creatinine, Serum 1.49 mg/dL (0.55-1.02); EST Glomerular Filtration Rate 35 mL/min (>60); Est Glom Filt Rate - Afr Amer 43 mL/min (>60); Globulin 3.5 g/dL (2.2-4.2); Glucose 88 mg/dL (74-106); Potassium 4.6 mmol/L (3.5-5.1); Protein, Total 7.4 g/dL (6.4-8.2); Sodium Level 135 mmol/L (136-145)
== END | disposition home or self-care (01) ==
LOC: MTLAB 15:33
PROVIDERS: PCP Internal Medicine; Referring Provider Internal Medicine Rheumatology; Visit Provider Internal Medicine Rheumatology
DX: M06.4 Inflammatory polyarthropathy (principal); R76.8 Other specified abnormal immunological findings in serum; Z79.899 Other long term (current) drug therapy
CPT/HCPCS: 36415; 80053; 85025

== ENCOUNTER 2024-09-03 14:30 | Outpatient (RCR) | payer MEDICARE, SELFPAY ==
[2019-02-27 14:50] VITALS: BMI 22.1
--- NOTE | 2024-08-27 13:22 | HP.PTEVAL_ITS ---
Patient's Visit Information Visit Information Visit Information: HUBERT DAVIS is a 89 year old F referred to Physical Therapy by Dr. Dori Boyd DO with a diagnosis of cervical radiculopathy and L shoulder weakness/pain. Date of Evaluation: 08/14/24 Physical Therapist: Hector Alan DPT Visit Plan Frequency: 2x /Week Duration: 6 Weeks Plan: 1) US to lateral subacromial space 2) AAROM and AROM of L shoulder, may add in joint mobs inferior glides as tolerated 3) progress scapular and periscapular strengthening. Subjective Subjective: Pt. is here today for her initial evaluation with diagnosis of cervical radiculopathy and L shoulder weakness/pain. Pt. reports feeling a pop in her shoulder and has had difficulty since. Pt. has been having increased issues with raising her L shoulder especially with anything OH or behind her back. Pt. reports feeling like she has no strength to lift her arm. Pt. does not have any N/T in her arm. Pt. is having issues with sleeping as well. She has not done any exercises yet for her shoulder. Pt. has not had any imaging yet. She is hopeful to reduce her symptoms in order to get back to all recreational activities without issues. Pain L shoulder: Pain Intensity (Out of 10): 5 Pain Intensity Range: 2 and 8 Objective Objective: POSTURE: Pt. has FH posture with increased kyphosis. Pt. is able to correct with VCing. PALPATION: pt. has tenderness at subacromial space and anterior shoulder. NEURO: Pt. has normal sensation and DTR of BUEs ROM: Pt. has min loss throughout cervical spine, no changes in shoulder symptoms. L shoulder: PROM 175deg, NE, abd 165deg, ER at 90deg 70deg, IR at 90deg 50deg. AROM: L shoulder: flexion 90deg, abd 85deg increase NW, functional ER C1, functional IR L PSIS. Pt. reports pain as limiting factor with all movements. MMT: R shoulder: 4/5. L shoulder 3+/5 throughout increase NW with all movemebts. CERVICAL SPINE: 5/5 iso - spurlings, + empty can, + HK, + neer. Balance/Special Test Scores Quick DASH Score: 50.0000 Goals Goal 1:: LTG: Pt. to be I with HEP. Goal Time Frame: 4-6 Weeks Goal 2:: STG: Pt. to have increased AROM of L shoulder to full without increase in symptoms. Goal 3:: LTG: Pt. to have symmetrical strength between BUEs without increase in symptoms. Goal Time Frame: 4-6 Weeks Goal 4:: LTG: Pt. to sleep without increase in symptoms. Goal Time Frame: 4-6 Weeks Goal 5:: LTG: Pt. to complete all ADls without increase in symptoms. Goal Time Frame: 4-6 Weeks Rehabilitation Potential Physical Therapy Diagnosis: Pts sign and symptoms consistent with cervical radiculopathy and L shoulder weakness/pain. Pt. has sign consistent with L RTC pathology. Pt. has marked L UE weakness and limited ROM. She would benefit from PT to address the above limitations progressing back to all ADLs without issues. Rehabilitation Potential: Good Anticipated Interventions Patient/Client Instruction: Educate patient on: Condition, Plan of Care, Risk Factors and Benefits of Fitness Program For the Purpose of:: To foster healthy habits, To improve decision making, To facilitate caregiver knowledge, To improve self management, To prevent re-injury and To improve ability to perform tasks related to life management Therapeutic Exercise to Include: Strength training, Power training, Endurance training, Passive ROM, Active ROM and Scapular Strength/Stabilization For the Purpose of:: To decrease pain, To increase ROM, To improve nutrient delivery to tissue, To increase oxygenation perfusion, To improve muscle pe rformance and motor function, To improve ability to perform ADL's and To improve health and function Manual Therapy Techniques to Include: Mobilization, Passive ROM, Functional dry needling and Soft tissue mobilization For the Purpose of:: To decrease pain, To decrease swelling/inflammation, To increase ROM and To improve nutrient delivery to tissue Cryotherapy (ice pack, ice massage): Yes Thermo therapy (hot pack): Yes Ultrasound (thermal/non thermal): Yes For the Purpose of:: To decrease pain, To decrease swelling/inflammation, To increase ROM and To improve nutrient delivery to tissue Text: Thank you for the opportunity to evaluate your patient. For Medicare and Medicare HMO plans, please review the plan of care and approve it. It will need to be FAXED BACK to us at [phone] for Medicare purposes. For Medicare only, by signing this I certify the plan of care. Please let me know if there are questions or concerns regarding this plan of care. Physician Signature:____ Date:
== END 2024-09-03 19:00 | disposition home or self-care (01) ==
LOC: PT 14:30
PROVIDERS: PCP Internal Medicine; Referring Provider Internal Medicine; Visit Provider Internal Medicine
DX: M54.12 Radiculopathy, cervical region (principal); M25.512 Pain in left shoulder; Z74.09 Other reduced mobility
CPT/HCPCS: 97035; 97110; 97161

== ENCOUNTER → 2024-12-21 | Outpatient (CLI) | payer MEDICARE, SELFPAY ==
[2019-02-27 14:50] VITALS: BMI 22.1
--- NOTE | 2024-12-21 16:10 | RAD_ITS ---
PROCEDURE: CHEST PA AND LATERAL 12/21/2024 REASON FOR EXAM: ABNORMAL LUNG SOUNDS TECHNIQUE: Frontal and lateral views of the chest. COMPARISON: No relevant prior. FINDINGS: Lungs: Lungs clear of pneumonia and congestion. Pleura: No pleural effusions, thickening, or pneumothorax. Heart: Mild cardiomegaly. Mediastinum/Karena: Unremarkable. Great vessels: Atherosclerotic aorta. Bones/soft tissues: Unremarkable. RAD/Chest PA and Lateral IMPRESSION: Mild cardiomegaly. No active cardiopulmonary disease. Reading Location: [id number]
[2024-12-21 18:20] LABS: Absolute Lymphocyte Count 0.95 X10^3/uL (0.83-4.51); Absolute Neutrophil Count 3.2 X10^3/uL (2.0-7.7); Basophil# 0.03 X10^3/uL; Basophil% 0.6 % (0-1); Eosinophil# 0.17 X10^3/uL; Eosinophils% 3.4 % (0-5); Hematocrit 36.1 % (37-47); Hemoglobin 11.5 g/dL (12.0-15.0); Lymphocyte # 0.95 X10^3/ul (0.83-4.51); Mean Corp Hgb Conc 31.9 g/dL (32-36); Mean Corpuscular Hgb 30.3 pg (27.0-32.0); Mean Corpuscular Volume 95.3 fL (81-99); Mean Platelet Vol. 9.9 fl (6.2-12.0); Monocyte# 0.68 X10^3/uL; Monocyte% 13.6 % (0-10); NRBC Flagged by Analyzer 0 % (0-5); Neutrophil # 3.15 X10^3/uL (2.7-7.7); Neutrophil % 63.2 % (47-70); Platelet Count 185 K/mm3 (150-450); RBC Distribution Width CV 13.5 % (11.6-14.6); RBC Distribution Width SD 47.3 fl (35.1-43.9); Red Blood Count 3.79 M/mm3 (4.2-5.4)
[2024-12-21 19:48] LABS: ALB/GLOB Ratio 1.3 RATIO (0.9-2.4); AST(SGOT) 29 U/L (<=31); Alanine Aminotransfer ALT/SGPT 18 U/L (<=34); Albumin, Serum 4.3 g/dL (3.4-4.8); Alkaline Phosphatase 78 U/L (35-104); Anion Gap 11 (5-15); BUN 33 mg/dL (4-19); BUN/Creat Ratio 21.6 RATIO (10-20); Calcium,Total 9.9 mg/dL (7.6-11.0); Carbon Dioxide 25.9 mmol/L (21.0-32.0); Chloride 101 mmol/L (98-108); Creatinine, Serum 1.51 mg/dL (0.70-1.20); EST Glomerular Filtration Rate 33 (>60); Globulin 3.2 g/dL (2.2-4.2); Glucose 89 mg/dL (70-99); Potassium 4.4 mmol/L (3.3-5.1); Pro- Brain NATRIURETIC PEPTIDE 6054 pg/mL (<=1800); Protein, Total 7.6 g/dL (5.9-8.4); Sodium Level 138 mmol/L (133-145); Total Bilirubin 0.33 mg/dL (0.00-1.30)
== END | disposition home or self-care (01) ==
LOC: MTLAB 16:07
PROVIDERS: PCP Internal Medicine; Referring Provider Nurse Practitioner Family; Visit Provider Nurse Practitioner Family
DX: R09.89 Other specified symptoms and signs involving the circulatory and respiratory systems (principal)
CPT/HCPCS: 36415; 71046; 80053; 83880; 85025

== ENCOUNTER → 2025-01-05 | Outpatient (CLI) | payer MEDICARE, SELFPAY ==
[2019-02-27 14:50] VITALS: BMI 22.1
[2025-01-05 16:25] LABS: Anion Gap 10 (5-15); BUN 43 mg/dL (4-19); BUN/Creat Ratio 25.4 RATIO (10-20); Calcium,Total 9.5 mg/dL (7.6-11.0); Carbon Dioxide 25.7 mmol/L (21.0-32.0); Chloride 103 mmol/L (98-108); Creatinine, Serum 1.71 mg/dL (0.70-1.20); EST Glomerular Filtration Rate 28 (>60); Glucose 84 mg/dL (70-99); Potassium 5.3 mmol/L (3.3-5.1); Sodium Level 139 mmol/L (133-145)
== END | disposition home or self-care (01) ==
LOC: LAB 13:55
PROVIDERS: PCP Internal Medicine; Referring Provider Physician Assistant Medical; Visit Provider Physician Assistant Medical
DX: R06.00 Dyspnea, unspecified (principal)
CPT/HCPCS: 36415; 80048

== ENCOUNTER → 2025-01-14 | Outpatient (CLI) | payer MEDICARE, SELFPAY ==
[2019-02-27 14:50] VITALS: BMI 22.1
[2025-01-14 15:15] LABS: Anion Gap 11 (5-15); BUN 33 mg/dL (4-19); BUN/Creat Ratio 24.3 RATIO (10-20); Calcium,Total 9.4 mg/dL (7.6-11.0); Carbon Dioxide 24.8 mmol/L (21.0-32.0); Chloride 102 mmol/L (98-108); Creatinine, Serum 1.36 mg/dL (0.70-1.20); EST Glomerular Filtration Rate 37 (>60); Glucose 66 mg/dL (70-99); Potassium 4.3 mmol/L (3.3-5.1); Sodium Level 137 mmol/L (133-145)
== END | disposition home or self-care (01) ==
LOC: LAB 13:27
PROVIDERS: PCP Internal Medicine; Referring Provider Physician Assistant Medical; Visit Provider Physician Assistant Medical
DX: N18.32 Chronic kidney disease, stage 3b (principal)
CPT/HCPCS: 36415; 80048

== ENCOUNTER → 2025-01-19 | Outpatient (CLI) | payer MEDICARE, SELFPAY ==
[2019-02-27 14:50] VITALS: BMI 22.1
--- NOTE | 2025-01-19 13:44 | ECHOD_ITS ---
Reason For Study Reason For Study: DYSPNEA Procedure This was a 2D Doppler, Color Flow transthoracic echocardiogram. Exam performed in department. Left Ventricle Mildly dilated left ventricle. The left ventricular ejection fraction is 45 %. Stage 1 diastolic dysfunction. Right Ventricle Normal RV size. Normal systolic function. Mitral Valve Bileaflet diffuse mitral valve thickening. Mild (1+) mitral valve insufficiency. Tricuspid Valve Normal tricuspid valve. Mild (1+) tricuspid valve insufficiency. Pulmonary artery systolic pressure is 40 mmHg. Aortic Valve Trisinus/trileaflet aortic valve. Mild (1+) aortic valve insufficiency. Pulmonic Valve Normal pulmonic valve. Great Vessels Normal aortic root. The pulmonary artery is normal size. Inferior vena cava collapse with sniff. Pericardium/Pleural No pericardial effusion. MMode/2D Measurements & Calculations LVIDd: 6.3 cm IVSd: 0.64 cm LVOT diam: 1.9 cm LVIDs: 5.1 cm LVPWd: 0.84 cm LVOT area: 3.0 cm2 RVDd: 2.9 cm FS: 18.0 % LAV(MOD-bp): 47.2 ml LVAd ap4: 26.8 cm2 LVAd ap2: 29.2 cm2 LAV(MOD-bp) Indexed: 31.9 ml/m2 LVLd ap4: 6.7 cm LVLd ap2: 7.5 cm LAV(MOD-sp2): 49.7 ml EDV(MOD-sp4): 86.7 ml EDV(MOD-sp2): 94.5 ml LAV(MOD-sp4): 38.1 ml EDV(sp4-el): 90.5 ml EDV(sp2-el): 96.9 ml LVAs ap4: 19.2 cm2 LVAs ap2: 20.9 cm2 LVLs ap4: 6.1 cm LVLs ap2: 6.6 cm ESV(MOD-sp4): 52.2 ml ESV(MOD-sp2): 53.8 ml ESV(sp4-el): 51.3 ml ESV(sp2-el): 55.9 ml EF(MOD-sp4): 39.8 % EF(MOD-sp2): 43.0 % EF(sp4-el): 43.3 % SV(MOD-sp4): 34.5 ml SV(MOD-sp2): 40.6 ml SV(sp4-el): 39.2 ml SI(MOD-sp4): 23.3 ml/m2 SI(MOD-sp2): 27.4 ml/m2 Ao sinus diam: 3.0 cm LA A4 area: 16.5 cm2 LA dimension(2D): 3.9 cm RA A4 area: 12.6 cm2 TAPSE: 1.8 cm Time Measurements MV dec time: 0.16 sec Doppler Measurements & Calculations MV E max bradford: 45.4 cm/sec Lat Peak E' Bradford: 8.8 cm/sec Med Peak E' Bradford: 6.3 cm/sec MV A max bradford: 52.2 cm/sec E/E' lat: 5.2 E/E' med: 7.2 MV E/A: 0.87 MV dec slope: 289.6 cm/sec2 Ao V2 max: 175.5 cm/sec AI max bradford: 415.1 cm/sec Ao max P.3 mmHg AI max P.9 mmHg Ao V2 mean: 117.7 cm/sec AI dec slope: 384.3 cm/sec2 Ao mean P.4 mmHg AI P1/2t: 316.3 msec Ao V2 VTI: 33.6 cm AV (velocity ratio): 0.57 TRELL(I,D): 1.7 cm2 TRELL(V,D): 1.6 cm2 LV V1 max: 96.6 cm/sec SV(LVOT): 56.7 ml PA V2 max: 110.5 cm/sec LV V1 max P.7 mmHg LV V1 mean P.3 mmHg LV V1 mean: 73.1 cm/sec LV V1 VTI: 19.2 cm TR max bradford: 296.1 cm/sec TR max P.1 mmHg ECHO/Echo Complete Interpretation Summary The left ventricular ejection fraction is 45 %. Stage 1 diastolic dysfunction. Mildly dilated left ventricle. Mild (1+) mitral valve insufficiency. Pulmonary artery systolic pressure is 40 mmHg. Ordering Physician: Emerita Robb Referring Physician: Dori oByd M.D. Performed By: Lora Mena RDCS
== END | disposition home or self-care (01) ==
LOC: CVS 13:38
PROVIDERS: PCP Internal Medicine; Referring Provider Physician Assistant Medical; Visit Provider Physician Assistant Medical
DX: R06.00 Dyspnea, unspecified (principal)
CPT/HCPCS: 93306

== ENCOUNTER → 2025-02-02 | Outpatient (CLI) | payer MEDICARE, SELFPAY ==
[2019-02-27 14:50] VITALS: BMI 22.1
[2025-02-02 15:23] LABS: Absolute Lymphocyte Count 0.73 X10^3/uL (0.83-4.51); Basophil# 0.03 X10^3/uL; Basophil% 0.5 % (0-1); Eosinophil# 0.16 X10^3/uL; Eosinophils% 2.9 % (0-5); Hematocrit 34.6 % (37-47); Hemoglobin 11.4 g/dL (12.0-15.0); Lymphocyte # 0.73 X10^3/ul (0.83-4.51); Lymphocyte % 13.1 % (19-41); Mean Corp Hgb Conc 32.9 g/dL (32-36); Mean Corpuscular Hgb 29.9 pg (27.0-32.0); Mean Corpuscular Volume 90.8 fL (81-99); Mean Platelet Vol. 9.7 fl (6.2-12.0); Monocyte# 0.61 X10^3/uL; Monocyte% 10.9 % (0-10); NRBC Flagged by Analyzer 0 % (0-5); Neutrophil # 3.96 X10^3/uL (2.7-7.7); Platelet Count 192 K/mm3 (150-450); RBC Distribution Width CV 12.8 % (11.6-14.6); RBC Distribution Width SD 41.8 fl (35.1-43.9); Red Blood Count 3.81 M/mm3 (4.2-5.4); White Blood Count 5.6 K/mm3 (4.4-11.0)
[2025-02-02 15:52] LABS: ALB/GLOB Ratio 1.3 RATIO (0.9-2.4); AST(SGOT) 26 U/L (<=31); Alanine Aminotransfer ALT/SGPT 14 U/L (<=34); Albumin, Serum 4.1 g/dL (3.4-4.8); Alkaline Phosphatase 76 U/L (35-104); Anion Gap 12 (5-15); BUN 35 mg/dL (4-19); Calcium,Total 9.5 mg/dL (7.6-11.0); Carbon Dioxide 21.2 mmol/L (21.0-32.0); Chloride 98 mmol/L (98-108); Creatinine, Serum 1.82 mg/dL (0.70-1.20); EST Glomerular Filtration Rate 26 (>60); Globulin 3.2 g/dL (2.2-4.2); Glucose 112 mg/dL (70-99); Potassium 5.3 mmol/L (3.3-5.1); Protein, Total 7.3 g/dL (5.9-8.4); Sodium Level 131 mmol/L (133-145)
== END | disposition home or self-care (01) ==
LOC: MTLAB 13:30
PROVIDERS: PCP Internal Medicine; Referring Provider Physician Assistant Medical; Visit Provider Physician Assistant Medical
DX: M06.4 Inflammatory polyarthropathy (principal); I50.9 Heart failure, unspecified; I11.0 Hypertensive heart disease with heart failure; R76.8 Other specified abnormal immunological findings in serum; L30.8 Other specified dermatitis; M51.379 Other intervertebral disc degeneration, lumbosacral region without mention of lumbar back pain or lower extremity pain; M47.897 Other spondylosis, lumbosacral region; E78.5 Hyperlipidemia, unspecified; E03.9 Hypothyroidism, unspecified; I25.10 Atherosclerotic heart disease of native coronary artery without angina pectoris; K21.9 Gastro-esophageal reflux disease without esophagitis; R53.83 Other fatigue
CPT/HCPCS: 80053; 84443; 85025

== ENCOUNTER → 2025-04-12 | Outpatient (CLI) | payer MEDICARE, SELFPAY ==
[2019-02-27 14:50] VITALS: BMI 22.1
== END | disposition home or self-care (01) ==
PROVIDERS: PCP Internal Medicine; Referring Provider Internal Medicine; Visit Provider Internal Medicine
DX: I49.9 Cardiac arrhythmia, unspecified (principal)
CPT/HCPCS: 93225; 93226

== ENCOUNTER → 2025-07-05 | Outpatient (CLI) | payer MEDICARE, SELFPAY ==
[2019-02-27 14:50] VITALS: BMI 22.1
== END | disposition home or self-care (01) ==
LOC: LABSPEC 13:34
PROVIDERS: PCP Internal Medicine; Referring Provider Dermatology; Visit Provider Dermatology
DX: L30.9 Dermatitis, unspecified (principal)
CPT/HCPCS: 87070; 87205

== ENCOUNTER → 2025-07-08 | Outpatient (CLI) | payer MEDICARE, SELFPAY ==
[2019-02-27 14:50] VITALS: BMI 22.1
--- NOTE | 2025-07-08 16:27 | RAD_ITS ---
PROCEDURE: CHEST PA AND LATERAL 07/08/2025 REASON FOR EXAM: SHORTNESS OF BREATH AND COUGH TECHNIQUE: Procedure Code: RADCXR Modality: DX Procedure: CHEST PA AND LATERAL COMPARISON: 12/21/2024. FINDINGS: The heart is enlarged. Right basilar consolidative opacities suspicious for pneumonia. No acute osseous abnormalities. RAD/Chest PA and Lateral IMPRESSION: Right basilar consolidative opacities suspicious for pneumonia. Reading Location: [id number]
== END | disposition home or self-care (01) ==
LOC: MTRAD 16:24
PROVIDERS: PCP Internal Medicine; Referring Provider Physician Assistant Surgical; Visit Provider Physician Assistant Surgical
DX: J20.9 Acute bronchitis, unspecified (principal)
CPT/HCPCS: 71046

== ENCOUNTER 2025-07-09 19:27 | Inpatient (IN) | payer MEDICARE, SELFPAY ==
[2019-02-27 14:50] VITALS: BMI 22.1
[2025-07-09] VITALS (7 sets, daily range): BP systolic 143–161; BP diastolic 82–100; PULSE 97–112; RESP 16–28; TEMP 36.6–36.9; O2SAT 91–95; BMI 22.7
--- NOTE | 2025-07-09 21:13 | EKG12_ITS ---
Test Reason : DYSRYTHMIA Blood Pressure : */* mmHG Vent. Rate : 98 BPM Atrial Rate : 98 BPM P-R Int : 186 ms QRS Dur : 138 ms QT Int : 410 ms P-R-T Axes : 84 -60 29 degrees QTcB Int : 523 ms Sinus rhythm with occasional Premature ventricular complexes Right bundle branch block Left anterior fascicular block Bifascicular block Septal infarct , age undetermined T wave abnormality, consider lateral ischemia Abnormal ECG Confirmed by Ko Miranda ([id number]), continuity editor VIRAL SIM ([id number]) on 07/14/2025 5:56:41 AM Referred By: Confirmed By: Ko Miranda
--- NOTE | 2025-07-09 21:13 | RAD_ITS ---
PROCEDURE: CHEST PA AND LATERAL 07/09/2025 REASON FOR EXAM: SHORTNESS OF BREATH, REPORTED RECENT PNEUMONIA TECHNIQUE: Procedure Code: RADCXR Modality: DX Procedure: CHEST PA AND LATERAL COMPARISON: 07/08/2025 FINDINGS: Lungs/Pleura: Unchanged bibasilar opacities likely representing small pleural effusions and/or atelectasis, with coexisting consolidation not excluded. Diffuse bilateral interstitial reticular opacities likely represent mild interstitial edema. Possibly background of chronic interstitial emphysematous changes. Heart/Mediastinum: Mildly enlarged. Aortic arch calcification. Bones/Soft tissues: Degenerative changes of the spine and bilateral shoulders. RAD/Chest PA and Lateral IMPRESSION: No significant interval change in probable interstitial edema and small bibasil ar pleural effusions/atelectasis. Coexisting consolidation not excluded in the lung bases. Cardiomegaly. Reading Location: [id number]
--- NOTE | 2025-07-09 21:17 | ED.VIS.DYS ---
HPI History of Present Illness Chief Complaint: Shortness of Breath Narrative Narrative: Chief complaint and HPI: 89-year-old female with past medical history of hypothyroidism, CKD, HTN presents for evaluation of shortness of breath. Patient states for the past several days she has been having shortness of breath, cough, generalized weakness. Was seen at urgent care and diagnosed with pneumonia. Placed on azithromycin. States she has taken the first dose. States today shortness of breath worsened with nausea and vomiting which is why she presents emergency department. She denies any fever, chills, chest pain, abdominal pain, dysuria. Denies history of COPD or asthma. Review of systems: See HPI Medications: As listed on the chart Allergies: As listed on the chart PFSH: Per chart Vital signs: As listed on the chart. Reviewed. Physical exam: Gen: A&O x3 Head: Normocephalic, atraumatic Eyes: No sclera icterus, conjunctiva clear ENT: Moist mucous membranes Neck: Trachea midline, full range of motion CV: RRR, no murmurs, no peripheral edema Resp: Lungs CTA BL, no w/r/c, intermittent dyspneic when speaking GI: Abd soft, non-distended, non-tender, no r/r/g Musc: Full ROM, no deformity Skin: Warm, dry Psych: Cooperative, appropriate mood and affect [facility] Medical History Impacted cerumen of both ears Decreased left ventricular systolic function Impacted cerumen, right ear Arthritis of right hip Wears partial dentures Post-menopausal Depression Diabetes Walker as ambulation aid Low iron Easy bruising Back pain Dietary restriction Difficulty swallowing Heartburn History of edema History of echocardiogram History of CHF (congestive heart failure) History of irregular heartbeat History of Holter monitoring Cardiology follow-up encounter Anxiety Hypothyroidism Chronic pain Osteoporosis Non-smoker Myocardial infarct Hypertension Migraines Lupus Chronic kidney disease (CKD) stage G3a/A1, moderately decreased glomerular filtration rate (GFR) between 45-59 mL/min/1.73 square meter and albuminuria creatinine ratio less than 30 mg/g COVID-19 (~12/2021) Contact with and (suspected) exposure to other viral communicable diseases URI (upper respiratory infection) Rheumatoid arthritis Presence of stent in coronary artery (~03/08/19) GERD (gastroesophageal reflux disease) Essential (primary) hypertension Pure hypercholesterolemia Atherosclerosis of hughes coronary 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 Non-rheumatic tricuspid valve insufficiency Dyspnea Diastolic dysfunction Hx of congestive heart failure Nonrheumatic mitral valve insufficiency Nonrheumatic aortic valve insufficiency Nonrheumatic mitral valve prolapse CHF (congestive heart failure) Old myocardial infarction Troponin I above reference range Chest pain Home Medications ?Medication ?Instructions ?Recorded ?Last Taken ?Type colesevelam 625 mg tablet (WelChol) 1,250 mg PO DINNER diabetes 12/15/19 10/03/23 History cholecalciferol (vitamin D3) 25 1,000 unit PO DAILY supplement 08/24/20 10/04/23 History mcg (1,000 unit) tablet calcium carbonate 500 mg PO DAILY supplement 06/15/22 10/04/23 History artifi.tears(hypromellose)(PF) 1.7 2 drp ophthalmic (eye) .AM eye 08/09/22 02/25/23 History % eye drops with applicator health hydroxychloroquine 200 mg tablet 200 mg PO DAILY Health 07/22/23 10/04/23 History folic acid 1 mg tablet 1 mg PO DAILY General health 09/20/23 10/04/23 History acetaminophen 500 mg tablet 1,000 mg (2 x 500 mg) PO Q8 #0 tabs 10/10/23 Unknown Rx tramadol 50 mg tablet 50 mg PO Q6H PRN pain 1-10 7 days 10/10/23 Unknown Rx #28 tabs aspirin 81 mg chewable tablet 81 mg PO QDAY Anticoagulant 09/29/24 Unknown History coenzyme Q10 100 mg capsule 100 mg PO QDAY 09/29/24 Unknown History polysaccharide iron complex 150 mg 150 mg PO QDAY 02/16/25 Unknown History iron capsule (Ferrex) furosemide 20 mg tablet 20 mg PO DAILY #90 tabs 03/26/25 Unknown Rx levothyroxine 25 mcg tablet 25 mcg PO .5 days a week thyroid 04/15/25 Unknown History levothyroxine 50 mcg capsule 50 mcg PO .Sat, Sat thyroid 04/15/25 Unknown History benzonatate 200 mg capsule 200 mg PO TID PRN cough #20 caps 05/24/25 Unknown Rx minocycline 100 mg capsule 100 mg PO BID 07/08/25 Unknown History Allergy/AdvReac Type Severity Reaction Status Date / Time nitrofurantoin (From Allergy Intermediate thrush Verified 07/09/25 19:33 Macrobid) latex Allergy Mild Rash Verified 07/09/25 19:33 Penicillins (PCN) Allergy not sure Verified 07/09/25 19:33 [id number] Reductase Allergy All blood Verified 07/09/25 19:33 Inhibitor (Bvslsqk-[id number]-Lwz cells low Reductase Inhibitor) amoxicillin (From Augmentin) AdvReac Severe syncope Verified 07/09/25 19:33 clavulanic acid (From AdvReac Severe syncope Verified 07/09/25 19:33 Augmentin) carvedilol (From Coreg) AdvReac Intermediate Very Verified 07/09/25 19:33 fatigued on smallest dose clopidogrel (From Plavix) AdvReac Intermediate Severe Verified 07/09/25 19:33 diarrhea isosorbide AdvReac Intermediate severe Verified 07/09/25 19:33 headache spironolactone AdvReac Intermediate Adominal Verified 07/09/25 19:33 pain, poor appetite, nausea doxycycline AdvReac GI Verified 07/09/25 19:33 symptoms, emesis Sulfa (Sulfonamide AdvReac Nausea/Vom/ Verified 07/09/25 19:33 Antibiotics) Diarrhea Family History Father CAD (coronary artery disease) Myocardial infarction Mother CVA (cerebral vascular accident) Brother Aneurysm Brother Heart disease Myocardial infarction Sister Afib Parkinson's disease CVA (cerebral vascular accident) Surgical History Status post total hip replacement, right History of cardiac catheterization Hx of colonoscopy Hx of right cataract extraction Hx of left cataract extraction History of coronary artery stent placement History of left heart catheterization (LHC) (~01/24/21) Presence of coronary angioplasty implant and graft (~03/08/19) S/P coronary artery stent placement (03/08/19) History of dilatation and curettage History of appendectomy History of total adrenalectomy Social History household members: spouse Smoking Status: Never smoker Electronic Cigarette Use: not used second hand exposure: No alcohol intake: never substance use type: does not use caffeine: Yes Type: coffee Number of servings: 1 what type of physical activity do you participate in: other details: [employer] frequency: 3-4 times per week duration: 45-60 minutes/day seatbelt use: always do you feel safe at home: Yes EXAM Physical Exam Const Vital Signs: 07/09/25 19:28 07/09/25 21:25 07/09/25 21:37 Temperature 98.4 F Temperature Source Oral Pulse Rate 112 H 99 Respiratory Rate 28 H 19 H Respiratory Effort Normal Non-Labored Respiratory Depth Normal Respiratory Pattern Normal Normal Blood Pressure 147/87 H Blood Pressure Mean 107 Pulse Ox 93 Oxygen Delivery Method Room Air Room Air 07/09/25 21:41 07/09/25 22:00 07/09/25 23:00 Temperature 97.9 F 97.8 F Temperature Source Oral Oral Pulse Rate 97 103 H 101 H Respiratory Rate 16 23 H 17 Respiratory Effort Respiratory Depth Respiratory Pattern Blood Pressure 161/96 H 153/100 H 143/82 H Blood Pressure Mean 117 117 102 Pulse Ox 95 95 92 Oxygen Delivery Method Room Air Room Air Room Air 07/09/25 23:00 07/10/25 00:00 Temperature 97.8 F 97.9 F Temperature Source Oral Oral Pulse Rate 102 H 104 H Respiratory Rate 21 H 17 Respiratory Effort Respiratory Depth Respiratory Pattern Blood Pressure 145/89 H 151/91 H Blood Pressure Mean 107 111 Pulse Ox 91 95 Oxygen Delivery Method Room Air Room Air MDM MDM MDM Narrative Medical decision making narrative: 89-year-old female with past medical history of hypothyroidism, CKD, HTN presents for evaluation of shortness of breath. Patient states for the past several days she has been having shortness of breath, cough, generalized weakness. Was seen at urgent care and diagnosed with pneumonia. Placed on azithromycin. States she has taken the first dose. States today shortness of breath worsened with nausea and vomiting. Differential diagnosis includes but is not limited to pneumonia, viral illness, electrolyte abnormality, dehydration. NS bolus and Zofran ordered. DuoNeb ordered for symptomatic shortness of breath. Patient will be monitored. EKG reviewed. Given the nonspecific T wave abnormalities. Troponins added. CBC without leukocytosis. Patient has baseline anemia of 11.8. Platelets unremarkable. BMP shows multiple electrolyte abnormalities including hyponatremia of 120 with a chloride of 88 and a bicarbonate of 6.7. Anion gap of 23. Patient has no MARRY. Her glucose is 69. [id number] glucose 109. Lactic acid unremarkable. Laboratory workup does not fit with clinical picture. Given the low bicarb, ABG was ordered. ABG without abnormal pH. Patient's bicarbonate is low at 18. Troponin 45. Patient not having any chest pain. Will obtain delta troponin. Given patient's electrolyte abnormalities on BMP. Hospitalist was consulted and patient was discussed. They agree that laboratory workup does not fit with clinical picture. Recommend repeat BMP. On reevaluation, patient still endorsing and shortness of breath although her respiratory rate and dyspnea has improved with DuoNeb. COVID, flu, RSV negative. While waiting for repeat labs. Patient was ambulated in the emergency with a pulse ox and failed. She became dyspneic and unable to talk. 84% on RA. Repeat troponin 44. Repeat BMP again shows hyponatremia of 123 with hyperchloremia of 91 however her bicarb is much improved at 18.9 without an anion gap. Patient will warrant admission for hypoxia. Patient was discussed with the hospitalist, Dr. Ruiz. Recommended CTA chest prior to admission to further workup source of hypoxia given not impressive chest x-ray. CTA chest ordered. Patient signed out to oncoming physician Dr. Smith. He will await results. Patient was updated of the results and the plan thus far. EKG: Interpreted by me/EM physician: EKG shows normal sinus rhythm with PVCs. Known right bundle branch block. Has a left anterior fascicular block. Nonspecific T wave abnormalities. Diagnostic: Interpreted by me/EM physician: Chest x-ray was personally viewed interpreted by me, ED physician. Chronic lung changes specially on the right, this was compared to previous chest x-rays and is similar. Cardiomegaly. Per radiology probable interstitial edema and small bilateral pleural effusions/atelectasis with no significant change. Coexisting consolidation not excluded in the lung bases. Cardiomegaly. Impression: 1. Acute hypoxia 2. Dyspnea 3. Hyponatremia 4. Hypochloremia 5. Chronic anemia Lab Data Labs: Laboratory Results - last 24 hr 07/09/25 07/09/25 07/09/25 21:38 22:35 23:33 WBC 4.8 RBC 3.90 L Hgb 11.8 L Hct 33.3 L MCV 85.4 MCH 30.3 MCHC 35.4 RDW Std Deviation 39.8 RDW Coeff of Young 12.9 Plt Count 180 MPV 9.7 Immature Gran % (Auto) 0.200 Neut % (Auto) 78.8 H Lymph % (Auto) 10.4 L [place] % (Auto) 10.0 Eos % (Auto) 0.6 Baso % (Auto) 0.0 Absolute Neuts (auto) 3.8 Absolute Lymphs (auto) 0.50 L Nucleated RBC % 0 Sodium 120 L 123 L Potassium 4.7 4.5 Chloride 88 L 91 L Carbon Dioxide 6.7 L* 18.9 L Anion Gap 23 H 13 BUN 25 H 34 H Creatinine 1.15 1.19 Estim Creat Clear Calc 25.03 L 24.18 L Est GFR (MDRD) Non-Af 46 L 44 L BUN/Creatinine Ratio 22.0 H 28.5 H Glucose 69 L 109 H Lactic Acid 1.3 Calcium 8.2 8.8 Troponin T High Sens 45 H Troponin T Hi Sens 2 Hr 44 H POC Glucose 109 H ABG Data ABG results: ABG 07/09/25 23:05 Specimen Type ART Sample Site R Radial pH 7.37 Bicarbonate Actual 18.0 L Total CO2 19 Base Excess -7 L O2 Saturation 91 L ABG pCO2 31.0 L ABG pO2 60 L Josué Test Positive O2 Delivery Device Room Air Vent Mode Not entered Radiography Diagnostic Testing: Clinical Impression(s) from Imaging Studies Chest X-Ray 07/09/25 21:13 IMPRESSION: No significant interval change in probable interstitial edema and small bibasilar pleural effusions/atelectasis. Coexisting consolidation not excluded in the lung bases. Cardiomegaly. Reading Location: [id number] Discharge Plan Triage Chief Complaint: Shortness of Breath ED Provider: Chris Garcia Dx/Rx/DC Orders Prescriptions: No Action colesevelam [WelChol] 625 mg tablet 1,250 mg PO DINNER Rx Instructions: 1,250 mg orally daily i; calcium carbonate 500 mg calcium (1,250 mg) tablet 500 mg PO DAILY artifi.tears(hypromellose)(PF) 1.7 % drops with applicator 2 drp ophthalmic (eye) .AM hydroxychloroquine 200 mg tablet 200 mg PO DAILY Patient Comments: TAKE 1 TABLET DAILY aspirin 81 mg tablet,chewable 81 mg PO QDAY coenzyme Q10 100 mg capsule 100 mg PO QDAY polysaccharide iron complex [Ferrex 150] 150 mg iron capsule 150 mg PO QDAY benzonatate 200 mg capsule 200 mg PO TID PRN (Reason: cough) Qty: 20 0RF minocycline 100 mg capsule 100 mg PO BID cholecalciferol (vitamin D3) 25 mcg (1,000 unit) tablet 1,000 unit PO DAILY Patient Comments: supplement levothyroxine 25 mcg tablet 25 mcg PO .5 days a week Patient Comments: thyroid Rx Instructions: Sun-Thurs levothyroxine 50 mcg capsule 50 mcg PO .Fri, Sat folic acid 1 mg tablet 1 mg PO DAILY acetaminophen 500 mg Tablet 1,000 mg PO Q8 Qty: 0 0RF tramadol 50 mg Tablet 50 mg PO Q6H PRN (Reason: pain 1-10) 7 Days Qty: 28 0RF furosemide 20 mg tablet 20 mg PO DAILY Qty: 90 3RF Primary Care Provider: Dori Boyd Referrals: Dori Boyd DO [Primary Care Provider, Internal Medicine] Print Language: German
[2025-07-09] MEDS: 0.9% Normal Saline (500mL Bag) 500 ML 999 ML IV (21:39)
[2025-07-09 21:46] LABS: Hematocrit 33.3 % (37-47); Hemoglobin 11.8 g/dL (12.0-15.0); Immature Granulocytes Count 0.010 X10^3/uL (0.0-0.0); Mean Corp Hgb Conc 35.4 g/dL (32-36); Mean Corpuscular Volume 85.4 fL (81-99); Mean Platelet Vol. 9.7 fl (6.2-12.0); NRBC Flagged by Analyzer 0 % (0-5); POSITIVE DIFFERENTIAL YES; Platelet Count 180 K/mm3 (150-450); RBC Distribution Width CV 12.9 % (11.6-14.6); RBC Distribution Width SD 39.8 fl (35.1-43.9); Red Blood Count 3.90 M/mm3 (4.2-5.4); White Blood Count 4.8 K/mm3 (4.4-11.0)
[2025-07-09 23:02] LABS: Troponin T High Sensitivity 45 ng/L (<=14)
[2025-07-09 23:08] LABS: Allen Test Positive; Base Excess -7 mmol/L (-2 to +2); PO2 60 mmHG (75-100); SITE R Radial; SO2 91 % (94-98)
[2025-07-10] VITALS (11 sets, daily range): BP systolic 98–157; BP diastolic 60–100; PULSE 80–104; RESP 14–21; TEMP 36.4–37.3; O2SAT 92–98; BMI 22.1
[2025-07-10 00:03] LABS: Troponin T High Sens 2 HR 44 ng/L (<=14)
[2025-07-10 00:06] LABS: Anion Gap 13 (5-15); BUN 34 mg/dL (4-19); BUN/Creat Ratio 28.5 RATIO (10-20); Calcium,Total 8.8 mg/dL (7.6-11.0); Carbon Dioxide 18.9 mmol/L (21.0-32.0); Chloride 91 mmol/L (98-108); Estimated Creatinine Clearance 24.18 ml/min (50-250); Glucose 109 mg/dL (70-99); Potassium 4.5 mmol/L (3.3-5.1)
--- NOTE | 2025-07-10 00:11 | CT_ITS ---
PROCEDURE: CTA CHEST W/WO CONTRAST 07/10/2025 REASON FOR EXAM: PE TECHNIQUE: Procedure Code: [id number] Modality: CT Procedure: CTA CHEST W/WO CONTRAST Multiplanar Sagittal and Coronal images were obtained. CONTRAST: ISOVUE VOLUME: 75 mL One or more dose reduction techniques were used (e.g., Automated exposure control, adjustment of the mA and/or kV according to patient size, use of iterative reconstruction technique). RADIATION DOSE SUMMARY: CTDlvol: 8.99 MGy DLP: 163.68 MGycm COMPARISON: 07.09.2025 FINDINGS: There is a focal hypodense filling defect seen involving the proximal part of the posterior segmental division of right descending pulmonary artery in keeping with pulmonary thromboembolism. Bilateral pulmonary smooth interstitial lung thickening is seen suggesting a developing interstitial cardiogenic pulmonary edema. A 4 mm soft tissue nodule is seen in the apico-posterior segment of the left upper lobe. There is no focal infiltrate or consolidation. A few streaky opacities are present in the lower lobes bilaterally, which may reflect subsegmental atelectasis and/or parenchymal scarring. Mild to moderate right and mild left pleural effusion are again seen with underlying partial relaxation of lung collapse seen bilaterally. No pneumothorax is seen. No mediastinal or hilar adenopathy is identified. The thyroid is unremarkable. The central airways are patent. The chest wall appears unremarkable. No axillary adenopathy is identified. The thoracic aorta demonstrates atheromatous calcification. The heart is again seen diffusely enlarged. There are coronary artery calcifications. No pericardial effusion is identified. 4 cm dilated ascending aorta. No aggressive-appearing osseous lesions are identified. Degenerative changes are present in the spine. The included abdominal cuts show no gross abnormality. 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 Bilateral pulmonary smooth interstitial lung thickening seen suggesting a devel oping interstitial cardiogenic pulmonary edema. Associated redemonstrated cardiomegaly as well as bilateral pleural effusion. Recommend clinical correlation. Left upper lung lobe 4 mm soft tissue nodule, no routine follow-up is required as per Fleischner criteria. Reading Location[facility]
--- NOTE | 2025-07-10 00:13 | PCM.HP.STD ---
HPI - General General Date of Admission: 07/10/25 Date of Service: 07/10/25 Chief Complaint: Shortness of Breath HPI Narrative HUBERT DAVIS, is a 89 F who presented to the emergency department at [facility] on 04/08/2025 with shortness of breath. Patient states she has been having slowly worsening shortness of breath over the last 2 to 3 weeks up to maybe a month. She has noticed the chest in the last 48 to 72 hours she has been significantly winded with exertion. She states that she has had to sleep with 2 pillows recently because she is too short of breath if she tries to lie flat. She has had no associated fever chills or cough. She does note that her lower extremities have been swelling some which is not typical for her. She does have a known history of HFrEF having an EF of 45% noted on her most recent echocardiogram in December. The patient states that she does not work a lot of water but does not really watch her sodium intake all that much. She states she has not weighed herself it is not clear if she has had any weight gain. Vital signs on presentation showed temperature of 98.4, heart rate 112, respiratory 28, blood pressure is 147/87 pulse ox was 93% on room air at rest. With exertion the patient dropped her sats to 87% on room air. CBC showed a normal white count with a chronic stable anemia hemoglobin 11.8. Her initial chemistry panel showed hyponatremia with sodium of 120 and markedly low serum bicarb of 6.7 with a normal creatinine and a glucose of 89. An ABG was obtained and she was found to have a pH of 7.37 with a pCO2 of 31 a pO2 of 60 and a bicarb of 18. A repeat BMP was drawn given this discrepancy and was found to be more consistent with a blood gas having a sodium of 123, chloride of 18.9, renal function was normal, and lactic acid was normal at 1.3. Initial troponin was 45 with a delta of 44. I obtained a BNP and it was 13,970. Chest x-ray showed some volume overload but was not super specific. We obtained a CTA of her chest and she was found to have a focal hypodense filling defect in the proximal portion of the posterior segment of the right descending pulmonary artery consistent with pulmonary embolism, bilateral pulmonary interstitial thickening consistent with cardiogenic pulmonary edema and a right-sided pleural effusion that was moderate in size. She was also found to have a left upper lung 4 mm soft tissue nodule with no routine follow-up required per Fleischner criteria. FOR[facility]LY [facility] Medical History Impacted cerumen of both ears Decreased left ventricular systolic function Impacted cerumen, right ear Arthritis of right hip Wears partial dentures Post-menopausal Depression Diabetes Walker as ambulation aid Low iron Easy bruising Back pain Dietary restriction Difficulty swallowing Heartburn History of edema History of echocardiogram History of CHF (congestive heart failure) History of irregular heartbeat History of Holter monitoring Cardiology follow-up encounter Anxiety Hypothyroidism Chronic pain Osteoporosis Non-smoker Myocardial infarct Hypertension Migraines Lupus Chronic kidney disease (CKD) stage G3a/A1, moderately decreased glomerular filtration rate (GFR) between 45-59 mL/min/1.73 square meter and albuminuria creatinine ratio less than 30 mg/g COVID-19 (~12/2021) Contact with and (suspected) exposure to other viral communicable diseases URI (upper respiratory infection) Rheumatoid arthritis Presence of stent in coronary artery (~03/08/19) GERD (gastroesophageal reflux disease) Essential (primary) hypertension Pure hypercholesterolemia Atherosclerosis of lumbee coronary artery of lumbee heart without angina pectoris Non-rheumatic tricuspid valve insufficiency Dyspnea Diastolic dysfunction Hx of congestive heart failure Nonrheumatic mitral valve insufficiency Nonrheumatic aortic valve insufficiency Nonrheumatic mitral valve prolapse CHF (congestive heart failure) Old myocardial infarction Troponin I above reference range Chest pain Home Medications ?Medication ?Instructions ?Recorded ?Last Taken ?Type colesevelam 625 mg tablet (WelChol) 1,250 mg PO DINNER diabetes 12/15/19 10/03/23 History cholecalciferol (vitamin D3) 25 1,000 unit PO DAILY supplement 08/24/20 10/04/23 History mcg (1,000 unit) tablet calcium carbonate 500 mg PO DAILY supplement 06/15/22 10/04/23 History artifi.tears(hypromellose)(PF) 1.7 2 drp ophthalmic (eye) .AM eye 08/09/22 02/25/23 History % eye drops with applicator health hydroxychloroquine 200 mg tablet 200 mg PO DAILY Health 07/22/23 10/04/23 History folic acid 1 mg tablet 1 mg PO DAILY General health 09/20/23 10/04/23 History acetaminophen 500 mg tablet 1,000 mg (2 x 500 mg) PO Q8 #0 tabs 10/10/23 Unknown Rx tramadol 50 mg tablet 50 mg PO Q6H PRN pain 1-10 7 days 10/10/23 Unknown Rx #28 tabs aspirin 81 mg chewable tablet 81 mg PO QDAY Anticoagulant 09/29/24 Unknown History coenzyme Q10 100 mg capsule 100 mg PO QDAY 09/29/24 Unknown History polysaccharide iron complex 150 mg 150 mg PO QDAY 02/16/25 Unknown History iron capsule (Ferrex) furosemide 20 mg tablet 20 mg PO DAILY #90 tabs 03/26/25 Unknown Rx levothyroxine 25 mcg tablet 25 mcg PO .5 days a week thyroid 04/15/25 Unknown History levothyroxine 50 mcg capsule 50 mcg PO .Fri, Sat thyroid 04/15/25 Unknown History benzonatate 200 mg capsule 200 mg PO TID PRN cough #20 caps 05/24/25 Unknown Rx minocycline 100 mg capsule 100 mg PO BID 07/08/25 Unknown History Allergy/AdvReac Type Severity Reaction Status Date / Time nitrofurantoin (From Allergy Intermediate thrush Verified 07/09/25 19:33 Macrobid) latex Allergy Mild Rash Verified 07/09/25 19:33 Penicillins (PCN) Allergy not sure Verified 07/09/25 19:33 Juaifom-LGF-OpL Reductase Allergy All blood Verified 07/09/25 19:33 Inhibitor (Jlrwyqy-Plx-Qhx cells low Reductase Inhibitor) amoxicillin (From Augmentin) AdvReac Severe syncope Verified 07/09/25 19:33 clavulanic acid (From AdvReac Severe syncope Verified 07/09/25 19:33 Augmentin) carvedilol (From Coreg) AdvReac Intermediate Very Verified 07/09/25 19:33 fatigued on smallest dose clopidogrel (From Plavix) AdvReac Intermediate Severe Verified 07/09/25 19:33 diarrhea isosorbide AdvReac Intermediate severe Verified 07/09/25 19:33 headache spironolactone AdvReac Intermediate Adominal Verified 07/09/25 19:33 pain, poor appetite, nausea doxycycline AdvReac GI Verified 07/09/25 19:33 symptoms, emesis Sulfa (Sulfonamide AdvReac Nausea/Vom/ Verified 07/09/25 19:33 Antibiotics) Diarrhea Family History Father CAD (coronary artery disease) Myocardial infarction Mother CVA (cerebral vascular accident) Brother Aneurysm Brother Heart disease Myocardial infarction Sister Afib Parkinson's disease CVA (cerebral vascular accident) Surgical History Status post total hip replacement, right History of cardiac catheterization Hx of colonoscopy Hx of right cataract extraction Hx of left cataract extraction History of coronary artery stent placement History of left heart catheterization (LHC) (~01/24/21) Presence of coronary angioplasty implant and graft (~03/08/19) S/P coronary artery stent placement (03/08/19) History of dilatation and curettage History of appendectomy History of total adrenalectomy Social History household members: spouse Smoking Status: Never smoker Electronic Cigarette Use: not used second hand exposure: No alcohol intake: never substance use type: does not use caffeine: Yes Type: coffee Number of servings: 1 what type of physical activity do you participate in: other details: [employer] frequency: 3-4 times per week duration: 45-60 minutes/day seatbelt use: always do you feel safe at home: Yes ROS Constitutional Constitutional: Reports fatigue and weakness; Denies anorexia, change in weight, chills, fever(s), malaise, night sweats or other Eyes Eyes: Denies blurry vision, change in eye color, change in vision, discharge from eye(s), double vision, erythema, eye pain, loss of vision or other ENT HEENT: Denies abnormal hearing, dysphagia, ear pain, epistaxis, headache(s), hearing loss, nasal congestion, nasal discharge, post nasal drip, sinus pressure, sore throat or other Cardiovascular Cardiovascular: Reports dyspnea on exertion, edema and orthopnea; Denies chest pain, claudication, lightheadedness, palpitations, paroxysmal nocturnal dyspnea, rapid heart rate, syncope or other Respiratory/Chest Respiratory/Chest: Reports dyspnea, shortness of breath at rest and shortness of breath with exertion; Denies cough, excessive phlegm production, hemoptysis, productive cough, wheezing or other Gastrointestinal Gastrointestinal: Denies abdominal pain, coffee ground emesis, constipation, diarrhea, dyspepsia, hematemesis, hematochezia, loose stools, melena, nausea, vomiting or other Genitourinary Genitourinary: Denies burning urination, difficulty urinating, dysuria, hematuria, nocturia, urinary frequency, urinary hesitancy, urinary incontinence, urinary urgency or other Musculoskeletal Musculoskeletal: Reports back pain, joint pain and joint stiffness; Denies arthralgias, joint swelling, myalgias, neck pain or other Neurologic Neurologic: Denies abnormal gait, abnormal speech, confusion, disequilibrium, dizziness, focal weakness, headache(s), numbness, paresthesias, seizure-like activity, seizures, syncope, tingling, tremor(s) or other Psychiatric Psychiatric: Denies anxiety, depression, homicidal ideation, suicidal ideation or other Endocrine Endocrinology: Denies change in body appearance, cold intolerance, excessive sweating, heat intolerance, polydipsia, polyuria or other Hematologic/Lymphatic Hematologic/Lymphatic: Denies anemia, easy bleeding, easy bruising, lymphadenopathy or other Allergic/Immunologic Allergic/Immunologic: Denies rhinitis, hives, eczemia, asthma or other Vital Signs Vital Signs Vital Signs: 07/09/25 19:28 07/09/25 21:25 07/09/25 21:37 Temperature 98.4 F Temperature Source Oral Pulse Rate 112 H 99 Respiratory Rate 28 H 19 H Respiratory Effort Normal Non-Labored Respiratory Depth Normal Respiratory Pattern Normal Normal Blood Pressure 147/87 H Blood Pressure Mean 107 Pulse Ox 93 Oxygen Delivery Method Room Air Room Air 07/09/25 21:41 07/09/25 22:00 07/09/25 23:00 Temperature 97.9 F 97.8 F Temperature Source Oral Oral Pulse Rate 97 103 H 101 H Respiratory Rate 16 23 H 17 Respiratory Effort Respiratory Depth Respiratory Pattern Blood Pressure 161/96 H 153/100 H 143/82 H Blood Pressure Mean 117 117 102 Pulse Ox 95 95 92 Oxygen Delivery Method Room Air Room Air Room Air 07/09/25 23:00 07/10/25 00:00 Temperature 97.8 F 97.9 F Temperature Source Oral Oral Pulse Rate 102 H 104 H Respiratory Rate 21 H 17 Respiratory Effort Respiratory Depth Respiratory Pattern Blood Pressure 145/89 H 151/91 H Blood Pressure Mean 107 111 Pulse Ox 91 95 Oxygen Delivery Method Room Air Room Air Weight Weight: 54.6 kg Body Mass Index (BMI) 22.7 Physical Exam Const alert, oriented x3, no apparent distress and average body habitus; Negative for healthy appearing or well nourished Constitutional Narrative: Thin, very pleasant, elderly, white female, sitting up in bed, not able to lie flat, does not appear toxic General Appearance: cooperative HEENT normocephalic, head/scalp atraumatic, hearing grossly normal bilaterally and moist oral mucous membranes HEENT Narrative: Mallampati 2, no thrush Eyes EOMs intact bilaterally and conjunctivae normal Eyes Narrative: No scleral icterus Neck supple Neck Narrative: Trachea midline, hepatojugular reflux noted, positive JVD Resp normal respiratory effort, no retractions, no use of accessory muscles and No clear to auscultation bilaterally Resp Narrative: Crackles in his distal lung bases bilaterally with decreased air movement in the right base, patient with exertional and conversational dyspnea Auscultation: crackles; Negative for rhonchi or wheezes Cardio regular rate, regular rhythm, S1 normal heart sound, S2 normal heart sound, no murmurs, no rub, no gallops and no clicks GI normal to inspection, nondistended, normoactive bowel sounds, soft to palpation and non-tender Extremity Extremity Narrative: 1+ bilateral lower extremity pitting edema Skin Skin Narrative: Wound on distal right leg from recent procedure with Derm, no surrounding severe erythema, no significant purulent drainage Neuro oriented x3, moves all extremities and no focal motor deficits Neuro Narrative: Appears to have mild generalized weakness but no focal deficit Speech: speech normal Psych affect normal Psych Narrative: Very pleasant, interacts appropriately Results Lab / Micro Data 07/09/25 21:38 07/09/25 23:33 Labs: Laboratory Results - last 24 hr 07/09/25 21:38: WBC 4.8, RBC 3.90 L, Hgb 11.8 L, Hct 33.3 L, MCV 85.4, MCH 30.3, MCHC 35.4, RDW Std Deviation 39.8, RDW Coeff of Young 12.9, Plt Count 180, MPV 9.7, Immature Gran % (Auto) 0.200, Neut % (Auto) 78.8 H, Lymph % (Auto) 10.4 L, Moca % (Auto) 10.0, Eos % (Auto) 0.6, Baso % (Auto) 0.0, Absolute Neuts (auto) 3.8, Absolute Lymphs (auto) 0.50 L, Nucleated RBC % 0, Sodium 120 L, Potassium 4.7, Chloride 88 L, Carbon Dioxide 6.7 L*, Anion Gap 23 H, BUN 25 H, Creatinine 1.15, Estim Creat Clear Calc 25.03 L, Est GFR (MDRD) Non-Af 46 L, BUN/Creatinine Ratio 22.0 H, Glucose 69 L, Lactic Acid 1.3, Calcium 8.2, Troponin T High Sens 45 H 07/09/25 22:35: POC Glucose 109 H 07/09/25 23:33: Sodium 123 L, Potassium 4.5, Chloride 91 L, Carbon Dioxide 18.9 L, Anion Gap 13, BUN 34 H, Creatinine 1.19, Estim Creat Clear Calc 24.18 L, Est GFR (MDRD) Non-Af 44 L, BUN/Creatinine Ratio 28.5 H, Glucose 109 H, Calcium 8.8, Troponin T Hi Sens 2 Hr 44 H Micro: Microbiology 07/09/25 21:38 Mucosa - Nose SARS-CoV-2, Influenza & RSV (PCR) - Final ABG Data ABG results: ABG 07/09/25 23:05 Specimen Type ART Sample Site R Radial pH 7.37 Bicarbonate Actual 18.0 L Total CO2 19 Base Excess -7 L O2 Saturation 91 L ABG pCO2 31.0 L ABG pO2 60 L Josué Test Positive O2 Delivery Device Room Air Vent Mode Not entered Imaging Radiology Impression Chest X-Ray 07/09/25 21:13 IMPRESSION: No significant interval change in probable interstitial edema and small bibasilar pleural effusions/atelectasis. Coexisting consolidation not excluded in the lung bases. Cardiomegaly. Reading Location: [id number] Assessment & Plan Assessment/Plan (1) Hypoxia: (2) Dyspnea: (3) Acute hyponatremia: (4) Elevated troponin: (5) Metabolic acidosis: (6) Acute on chronic HFrEF (heart failure with reduced ejection fraction): (7) Pleural effusion: (8) Pulmonary embolus: PLAN: Plan Acute hypoxia/dyspnea secondary to acute on chronic heart failure with reduced ejection fraction and diastolic dysfunction/PE/right pleural effusion - Significant right pleural effusion, markedly elevated BNP and saw small segmental PE - I think PE likely has been released on to play into this overall - Lasix 40 mg IV push 3 times daily - Will hold off on thoracentesis for now and recommend repeat x-ray in 48 hours to reassess right pleural effusion - Restrict volume to 1500 cc daily - Sodium restricted diet - Daily weights - Strict I's and O's - 1/2 inch of Nitropaste every 8 hours - Check echocardiogram - Last echocardiogram on 01/19/2025 showed EF of 45% with stage I diastolic dysfunction, mildly dilated LV with right ventricular systolic pressure of 40 mmHg - Patient stable on room air but significantly dropped his oxygen saturation into the mid 80s with exertion - Will need ambulatory pulse ox prior to discharge Acute PE - Segmental branch of the right lobe - Start Eliquis 10 mg p.o. twice daily for 7 days then transition to 5 mg p.o. twice daily - No Dopplers as patient is going to be treated and obtaining these will not change care management at this time if Moderate right pleural effusion - Diuresis - Would consider repeat chest x-ray in 48 hours to assess size of effusion -Hopeful for improvement without thoracentesis with diuretics Elevated troponin - Mild with initial troponin of 45 and delta of 44 - Suspect related to acute PE in addition to acute on chronic decompensated heart failure - Echo pending to assess wall motion and EF Hyponatremia - Highly suspect related to volume overload - Diuresis as noted above - If sodium does not improve with diuretics may need to do further workup Metabolic acidosis - Marked reduced bicarb on presentation however repeat BMP and ABG confirmed that that was a spurious result - Acidosis is mild currently and none anion gap - Suspect should improve with diuretics Generalized weakness - PT/OT consultation CKD stage IIIb - Baseline serum creatinine seems to run between 1.4 and 1.8 - 1.19 on presentation and this leads me to believe she is not euvolemic at this time - Diuresis but monitor renal function closely CAD/essential hypertension/hyperlipidemia - IVUS guided PCI/OZIEL to prox LAD 02/27/19; PTCA/OZIEL to prox Diag #1 and PCI/OZIEL to Mid LAD at bifurcation of diag to ensure no struts from diag stent protruded into LAD 03/08/19 - Most recent cardiac catheterization was in 2022 at which time she had nonobstructive disease and patent stents - Patient is statin intolerant - Hold home oral Lasix while on IV--> suspect will need up titration of her home Lasix at discharge as she will is only 20 mg daily currently Hypothyroidism - Continue home levothyroxine - Check TSH Chronic anemia - Stable - continue home iron supplementation History of lupus - Stable - Continue hydroxychloroquine Chronic pain - Continue home Ultram - Continue home scheduled acetaminophen DVT prophylaxis - Full dose Eliquis for treatment of above PE CODE STATUS - DNR CCA okay for short-term intubation as verified with patient on admission Charges/Coding Visit Charges Inpatient E&M: 03702 Init Hosp L3
[2025-07-10 00:38] LABS: Pro- Brain NATRIURETIC PEPTIDE 13970 pg/mL (<=1800)
[2025-07-10] MEDS: APIXABAN 5 MG TABLET 10 MG PO ×3 (04:18→21:41)
[2025-07-10] MEDS: 0.9% Saline Lock 10 ML Syringe IV ×2 (04:23→21:41)
--- NOTE | 2025-07-10 05:55 | ECHOD_ITS ---
Reason For Study Reason For Study: CHF Procedure This was a 2D Doppler, Color Flow transthoracic echocardiogram. Exam performed portable in patient room. Left Ventricle Left ventricle is moderately dilated. EF by 2D Simpsons biplane: 25% Left ventricular systolic function severely reduced Grade 2 diastolic dysfunction, elevated left atrial filling pressure. There is severe global hypokinesis of the left ventricle. Right Ventricle Normal RV size. Mildly decreased RV function. RVSP: 45 to 55 mmHg. Atria There is mild biatrial dilatation. Right atrial pressure estimate to be 15 mmHg. Mitral Valve Bileaflet thickening. No mitral valve prolapse. There is no mitral stenosis. There is mild mitral regurgitation. Tricuspid Valve Borderline tricuspid valve prolapse. There is no tricuspid valve stenosis. There is mild tricuspid regurgitation. Aortic Valve Aortic valve thickening with calcified annulus. Aortic valve is trileaflet. There is no hemodynamically significant aortic stenosis. Moderate aortic regurgitation. AR PHT: 379. Pulmonic Valve The pulmonic valve is not well visualized. There is no pulmonic valve stenosis. There is no pulmonic valve regurgitation. Great Vessels The aortic root is not well visualized. Thoracic ascending aorta not well-visualized. Pericardium/Pleural No pericardial effusion. Pleural effusion present. MMode/2D Measurements & Calculations LVIDd: 5.9 cm IVSd: 0.77 cm LVOT diam: 2.0 cm LVIDs: 5.3 cm LVPWd: 1.0 cm LVOT area: 3.1 cm2 RVDd: 2.2 cm FS: 9.6 % LAV(MOD-bp): 61.2 ml LVAd ap4: 32.9 cm2 SV(MOD-sp4): 26.5 ml LAV(MOD-bp) Indexed: 40.7 ml/m2 LVLd ap4: 7.7 cm SI(MOD-sp4): 17.6 ml/m2 LAV(MOD-sp2): 69.1 ml EDV(MOD-sp4): 119.2 ml LAV(MOD-sp4): 45.0 ml EDV(sp4-el): 119.9 ml LVAs ap4: 28.0 cm2 LVLs ap4: 7.2 cm ESV(MOD-sp4): 92.7 ml ESV(sp4-el): 92.3 ml EF(MOD-sp4): 22.2 % EF(sp4-el): 23.1 % SV(sp4-el): 27.7 ml LA A4 area: 19.2 cm2 LA dimension(2D): 3.6 cm RA A4 area: 14.3 cm2 Time Measurements MV dec time: 0.08 sec Doppler Measurements & Calculations MV E max bradford: 55.6 cm/sec Lat Peak E' Bradford: 5.2 cm/sec Med Peak E' Bradford: 5.1 cm/sec MV A max bradford: 50.3 cm/sec E/E' lat: 10.6 E/E' med: 10.9 MV E/A: 1.1 MV V2 max: 62.8 cm/sec Ao V2 max: 134.5 cm/sec MV max P.6 mmHg MV dec slope: 682.1 cm/sec2 Ao max P.2 mmHg MV V2 mean: 42.1 cm/sec Ao V2 mean: 99.3 cm/sec MV mean P.81 mmHg Ao mean P.4 mmHg MV V2 VTI: 13.7 cm Ao V2 VTI: 22.5 cm AV (velocity ratio): 0.68 MVA(VTI): 3.5 cm2 TRELL(I,D): 2.1 cm2 TRELL(V,D): 2.3 cm2 AI max bradford: 415.2 cm/sec LV V1 max: 99.9 cm/sec SV(LVOT): 47.5 ml AI max P.0 mmHg LV V1 max P.0 mmHg LV V1 mean P.5 mmHg AI dec slope: 316.3 cm/sec2 LV V1 mean: 75.1 cm/sec AI P1/2t: 384.5 msec LV V1 VTI: 15.3 cm PA V2 max: 69.7 cm/sec TR max bradford: 313.2 cm/sec PA V2 mean: 52.8 cm/sec TR max P.2 mmHg ECHO/Echo Complete Interpretation Summary Left ventricle is moderately enlarged Left ventricle EF by 2D Simpsons biplane: 25% Left ventricular systolic function is severely reduced Grade 2 diastolic dysfunction, elevated left atrial filling pressure. There is severe global hypokinesis of the left ventricle. Moderate aortic regurgitation Compared to echocardiogram on 01/19/2025, left ventricular systolic function garcia s decreased. Ordering Physician: Colleen Ruiz Referring Physician: Dori Boyd M.D. Performed By: Jessica Shen RCS
[2025-07-10 06:05] LABS: Hematocrit 33.2 % (37-47); Hemoglobin 11.2 g/dL (12.0-15.0); Immature Granulocytes Count 0.010 X10^3/uL (0.0-0.0); Mean Corp Hgb Conc 33.7 g/dL (32-36); Mean Corpuscular Volume 88.1 fL (81-99); Mean Platelet Vol. 9.9 fl (6.2-12.0); NRBC Flagged by Analyzer 0 % (0-5); POSITIVE DIFFERENTIAL YES; Platelet Count 185 K/mm3 (150-450); RBC Distribution Width CV 12.9 % (11.6-14.6); RBC Distribution Width SD 41.7 fl (35.1-43.9); Red Blood Count 3.77 M/mm3 (4.2-5.4); White Blood Count 3.6 K/mm3 (4.4-11.0)
[2025-07-10] MEDS: Nitroglycerin Oint 1 INCH PACKET 0.5 INCH TD (06:15)
[2025-07-10 06:34] LABS: AST(SGOT) 33 U/L (<=31); Alanine Aminotransfer ALT/SGPT 25 U/L (<=34); Albumin, Serum 3.7 g/dL (3.4-4.8); Alkaline Phosphatase 78 U/L (35-104); Anion Gap 11 (5-15); BUN 32 mg/dL (4-19); BUN/Creat Ratio 24.8 RATIO (10-20); Calcium,Total 8.8 mg/dL (7.6-11.0); Carbon Dioxide 21.8 mmol/L (21.0-32.0); Chloride 89 mmol/L (98-108); Estimated Creatinine Clearance 22.14 ml/min (50-250); Globulin 2.7 g/dL (2.2-4.2); Glucose 131 mg/dL (70-99); Magnesium 1.9 mg/dL (1.5-2.2); Potassium 4.3 mmol/L (3.3-5.1)
[2025-07-10] MEDS: Cholecalciferol (VIT D3) 25 MCG TABLET (1,000 UNITS) PO (08:35)
[2025-07-10] MEDS: Calcium (Elemental) 500 MG Tablet PO (08:35)
[2025-07-10] MEDS: CARBOXYMETHYLCELLULOSE SODIUM 1 DRP DROPS 2 DRP OPHTHALMIC (08:36)
--- NOTE | 2025-07-10 09:10 | CASEMGMT ---
HARMEET JI Face to Face with patient for initial transition planning/care coordination assessment. RN CM introduced self and role at [facility]. Patient lying in bed, alert and oriented. Patient willing to participate in assessment and is able to answer all questions appropriately. Care providers, pharmacy, and demographics verified. Strata: 2 PCP: Deb Specialists: Lebron, pain; Aaron, dermatology; ALEAN, cardiology Preferred Pharmacy: [facility] Insurance: [employer] Prescription Benefit: yes, [employer] savings card provided to patient. Living Will/HPOA: yes, daughter Bessy Nix LNOK: , daughter Living Arrangements: Patient lives with in a tri-level home. Patient is independent and able to ambulate stairs. Transportation: self, DME/HHC: Patient has shower chair, cane, walker, pulse ox at home. Patient has had [facility] HHC in the past. No previous SNF. Will monitor for home oxygen, green sheet on chart. Patient wishes to discharge home, denies need for home health at this time. Patient states he has no further needs or concerns at this time. CM to follow for discharge planning needs that may arise. Disposition Plan: Patient to discharge home with family support and follow-up plans in place. Will monitor for home oxygen. Melissa RAVI, RN, CM
--- NOTE | 2025-07-10 12:47 | PCM.HOSP.N ---
Hospitalist Note 89-year-old female history of lupus, coronary artery disease with stenting, hypothyroidism, GERD, combined heart failure presented to [facility] ED 07/09/2025 with shortness of breath for 2 to 3 weeks with further worsening in the past 48 to 72 hours. In the ED he was noted that patient had a chest x-ray concerning for overload and a proBNP of 13,900, initial troponin 45 with a repeat of 44. CTA obtained she was found to have focal hypodense filling defect in proximal portion of the posterior segment of right descending pulmonary artery consistent with PE as well as interstitial changes consistent with pulmonary edema with a moderate right-sided pleural effusion. Patient was ambulated and desaturated to 84% on room air. Hospitalist contacted for admission. # Acute hypoxia secondary to acute exacerbation of chronic combined heart failure and PE -Admit to telemetry -proBNP 13,000 - CTA with interstitial changes concerning for pulmonary edema -Continue IV lasix -Last echo with EF of 45% and stage I diastolic dysfunction, PASP 40 -Repeat echo ordered -Daily weights, I's and O's - Volume restriction and sodium restriction - Patient did have pleural effusion noted, depending on patient's symptoms and progress may consider repeat imaging and potential thoracentesis though if symptoms significantly improve may be able to avoid this altogether # Acute PE - CTA with filling defect in proximal portion of the posterior segment of right descending pulmonary artery consistent with PE - Patient started on Eliquis # Hyponatremia -Patient 120 on presentation, this a.m. 121 -Has previously had problems with hyponatremia as well going all the way back to 2019 -Suspect secondary to fluid overload given proBNP of 13,000 - TSH 3.09 - Diuresing, will follow, further workup if not improving with treatment of underlying fluid overload #Hypothyroidism -Continue Synthroid - TSH within normal limits # Elevated troponin - First troponin 45 with a repeat of 44 - Suspect that this is due to patient's heart failure exacerbation and PE - No further workup at this time - Monitor on telemetry - Repeat echo ordered #Hx of CAD -w/ previous stenting -Continue home medications # History of lupus - Continue hydroxychloroquine #DVT ppx: Full dose Reenaquwicho Mooney MD
[2025-07-11] VITALS (7 sets, daily range): BP systolic 115–155; BP diastolic 70–106; PULSE 75–107; RESP 16–18; TEMP 36.4–37; O2SAT 94–95; BMI 23.1
[2025-07-11 06:56] LABS: Hematocrit 31.2 % (37-47); Hemoglobin 10.7 g/dL (12.0-15.0); Mean Corp Hgb Conc 34.3 g/dL (32-36); Mean Corpuscular Volume 87.2 fL (81-99); Mean Platelet Vol. 9.8 fl (6.2-12.0); Platelet Count 178 K/mm3 (150-450); RBC Distribution Width CV 12.8 % (11.6-14.6); RBC Distribution Width SD 40.7 fl (35.1-43.9); Red Blood Count 3.58 M/mm3 (4.2-5.4); White Blood Count 4.3 K/mm3 (4.4-11.0)
[2025-07-11 07:20] LABS: Anion Gap 11 (5-15); BUN 40 mg/dL (4-19); BUN/Creat Ratio 25.9 RATIO (10-20); Calcium,Total 8.8 mg/dL (7.6-11.0); Carbon Dioxide 21.3 mmol/L (21.0-32.0); Chloride 89 mmol/L (98-108); Estimated Creatinine Clearance 18.45 ml/min (50-250); Glucose 84 mg/dL (70-99); Potassium 4.3 mmol/L (3.3-5.1)
--- NOTE | 2025-07-11 08:44 | RAD_ITS ---
PROCEDURE: CHEST PA AND LATERAL 07/11/2025 REASON FOR EXAM: SOB, PLEURAL EFFUSIONS TECHNIQUE: Procedure Code: RADCXR Modality: DX Procedure: CHEST PA AND LATERAL COMPARISON: Chest x-ray 07/09/2025. FINDINGS: Hardware: Monitor electrodes overlie the chest. Heart: Moderate cardiomegaly. Mediastinum: Tortuosity and atherosclerotic calcifications of the aorta. Lungs: Worsening airspace opacities in the lower lung consistent with CHF with pleural effusions. No pneumothorax. Bones: No acute bony abnormalities RAD/Chest PA and Lateral IMPRESSION: Worsening airspace opacities in the lower lung consistent with CHF with pleural effusions. No pneumothorax. Reading Location: [id number]
--- NOTE | 2025-07-11 08:44 | PN.HOSP_ITS ---
Reason for Visit Chief Complaint: Shortness of Breath Subjective Subjective Still has difficulty taking a big deep breath and is not at baseline but is better than when she initially presented, patient to get up and move around to see how she is doing this a.m. Objective Data Objective Data Vital Signs: Vital Signs Temp Pulse Resp BP Pulse Ox O2 Del Method 97.6 F L 76 17 121/72 H 95 Room Air 07/11/25 03:49 07/11/25 03:49 07/11/25 03:49 07/11/25 03:49 07/11/25 03:49 07/11/25 08:08 Oxygen Delivery Method Room Air Weight: 53.1 kg Body Mass Index (BMI) 22.1 Intake & Output: Intake and Output for Last 24 Hours 07/09/25 07/10/25 07/11/25 23:59 23:59 23:59 Intake Total 500 / 500 240 / 240 Balance 500 / 500 240 / 240 Lab / Micro Data 07/11/25 06:10 07/11/25 06:10 Labs: Laboratory Results - last 24 hr 07/11/25 06:10: WBC 4.3 L, RBC 3.58 L, Hgb 10.7 L, Hct 31.2 L, MCV 87.2, MCH 29.9, MCHC 34.3, RDW Std Deviation 40.7, RDW Coeff of Young 12.8, Plt Count 178, MPV 9.8, Sodium 121 L, Potassium 4.3, Chloride 89 L, Carbon Dioxide 21.3, Anion Gap 11, BUN 40 H, Creatinine 1.56 H, Estim Creat Clear Calc 18.45 L, Est GFR (MDRD) Non-Af 32 L, BUN/Creatinine Ratio 25.9 H, Glucose 84, Calcium 8.8 Micro: Microbiology 07/09/25 21:38 Mucosa - Nose SARS-CoV-2, Influenza & RSV (PCR) - Final Radiography Diagnostic Testing: Radiology Impression Echocardiogram 07/10/25 05:55 Interpretation Summary Left ventricle is moderately enlarged Left ventricle EF by 2D Simpsons biplane: 25% Left ventricular systolic function is severely reduced Grade 2 diastolic dysfunction, elevated left atrial filling pressure. There is severe global hypokinesis of the left ventricle. Moderate aortic regurgitation Compared to echocardiogram on 01/19/2025, left ventricular systolic function has decreased. Ordering Physician: Colleen Ruiz Referring Physician: Dori Boyd M.D. Performed By: Jessica Shen RCS Physical Exam Narrative General: Alert, oriented, no apparent distress HEENT: Atraumatic, normocephalic Eyes: Anicteric, normal conjunctiva, extraocular movements grossly intact Neck: Supple Respiratory: Somewhat diminished at the bases with crackles above Cardiovascular: Regular rate GI: Soft, nontender, nondistended Extremities: Trace lower extremity edema Musculoskeletal: Moving all extremities Neuro: No overt focal neurological deficits Skin: No rashes appreciated Psych: Cooperative Assessment & Plan Assessment/Plan (1) Hypoxia: (2) Acute on chronic HFrEF (heart failure with reduced ejection fraction): PLAN: Plan 89-year-old female history of lupus, coronary artery disease with stenting, hypothyroidism, GERD, combined heart failure presented to [facility] ED 07/09/2025 with shortness of breath for 2 to 3 weeks with further worsening in the past 48 to 72 hours. In the ED he was noted that patient had a chest x-ray concerning for overload and a proBNP of 13,900, initial troponin 45 with a repeat of 44. CTA obtained she was found to have focal hypodense filling defect in proximal portion of the posterior segment of right descending pulmonary artery consistent with PE as well as interstitial changes consistent with pulmonary edema with a moderate right-sided pleural effusion. Patient was ambulated and desaturated to 84% on room air. Hospitalist contacted for admission. # Acute hypoxia secondary to acute exacerbation of chronic combined heart failure and PE -Admit to telemetry -proBNP 13,000 - CTA with interstitial changes concerning for pulmonary edema -Continue IV lasix -Last echo with EF of 45% and stage I diastolic dysfunction, PASP 40 -Repeat echo ordered -Daily weights, I's and O's - Volume restriction and sodium restriction - Patient did have pleural effusion noted, depending on patient's symptoms and progress may consider repeat imaging and potential thoracentesis though if symptoms significantly improve may be able to avoid this altogether -07/11: Patient's EF went from 45% less than 6 months ago to 25% on repeat echocardiogram with LV V dysfunction severely reduced and grade 2 diastolic dysfunction, patient on IV Lasix, cardiology consulted given significant reduction in EF. Also repeating chest x-ray, patient still with difficulty taking deep breath, may need to consider thoracentesis tomorrow if effusion remains unchanged. Kidney function did bump but patient still with suspected effusions and short of breath so decreasing Lasix # Acute PE - CTA with filling defect in proximal portion of the posterior segment of right descending pulmonary artery consistent with PE - Patient started on Eliquis -07/11: Continue loading dose of anticoagulation # Hyponatremia -Patient 120 on presentation, this a.m. 121 -Has previously had problems with hyponatremia as well going all the way back to 2019 -Suspect secondary to fluid overload given proBNP of 13,000 - TSH 3.09 - Diuresing, will follow, further workup if not improving with treatment of underlying fluid overload -07/11: Suspected due to fluid overload however sodium 121 again making this less likely as she is being diuresed. Checking urine studies and serum osmole's to help better characterize # Elevated troponin - First troponin 45 with a repeat of 44 - Suspect that this is due to patient's heart failure exacerbation and PE - No further workup at this time - Monitor on telemetry - Repeat echo ordered -07/11: Repeat echo with no acute wall motion abnormality but does have significant decrease in EF to 25%, cardiology consulted as above #Hx of CAD -w/ previous stenting -Continue home medications -07/11: No wall motion abnormalities but given significant decrease in EF cardiology consulted, continue other home medications Chronic medical problems and/or problems not being actively addressed during today's encounter: #Hypothyroidism -Continue Synthroid - TSH within normal limits date # History of lupus - Continue hydroxychloroquine #DVT ppx: Full dose Reenaquis Tianna Mooney MD Time spent in the patient's overall evaluation,decision-making process, review of diagnostic data, adjustment of management, discussion with other providers, nursing nursing and ancillary staff involved in patient's care documentation, 38 Minutes Charges/Coding Visit Charges Inpatient E&M: 74882 Subs Hosp L2
[2025-07-11] MEDS: CARBOXYMETHYLCELLULOSE SODIUM 1 DRP DROPS 2 DRP OPHTHALMIC (09:15)
[2025-07-11] MEDS: Cholecalciferol (VIT D3) 25 MCG TABLET (1,000 UNITS) PO (09:16)
[2025-07-11] MEDS: APIXABAN 5 MG TABLET 10 MG PO ×2 (09:16→22:34)
[2025-07-11] MEDS: Calcium (Elemental) 500 MG Tablet PO (09:16)
[2025-07-11 09:36] LABS: Osmolality, Serum 278 mOsm/KG (280-301)
[2025-07-11 09:37] LABS: Anion Gap 10 (5-15); BUN 39 mg/dL (4-19); BUN/Creat Ratio 26.0 RATIO (10-20); Calcium,Total 8.7 mg/dL (7.6-11.0); Carbon Dioxide 21.8 mmol/L (21.0-32.0); Chloride 91 mmol/L (98-108); Estimated Creatinine Clearance 19.45 ml/min (50-250); Glucose 88 mg/dL (70-99); Magnesium 2.1 mg/dL (1.5-2.2); Potassium 4.5 mmol/L (3.3-5.1)
[2025-07-11 09:38] LABS: Creatinine, Urine (random) 115.00 mg/dL (28.00-217.00)
[2025-07-11 09:41] LABS: Urea Nitrogen, Urine 978 mg/dL (NO RANGE EST.)
--- NOTE | 2025-07-11 09:45 | CON.PCM.CA_ITS ---
Assessment & Plan Assessment/Plan (1) Acute on chronic HFrEF (heart failure with reduced ejection fraction): PLAN: - AHA stage C, NYHA class III - Ejection fraction currently ~25%, global hypokinesis decreased from 45% in 12/2024 - Coronary angiogram in 2022 showed patent coronary arteries and stents - Patient intolerant in the past to GDMT -Currently decompensated with complaints of dyspnea, pulmonary edema shown on CT scan, and elevated NT proBNP, previously documented hypoxia. Patient overloaded on exam with marked lower extremity edema. Patient endorsing that her legs are still swollen significantly from baseline. -Etiology of worsening LV function likely multifactorial, possible in the setting of ongoing poorly controlled hypertension, medication noncompliance and no GDMT, on progressive pre-existing cardiomyopathy and worsening decompensation over the past couple months. - Presentation not consistent with acute coronary syndrome, with negative ECG findings for ischemia or prior infarction, high sensitive troponins 44 and 45, and absence of chest pain. - Decompensation also not consistent with progressive valvular disease as mitral regurgitation and aortic regurgitation are mild to moderate Plan - IV Lasix 40 mg every 8 hours for goal net (-) 2 to 3 L daily -Continue to monitor creatinine and electrolytes appropriately during IV diuresis - If creatinine continues to remain stable in light of her CKD stage IIIb, would recommend initiation of SGLT2i and losartan 25 mg daily -Patient hesitant to trial new medications, but willing to try in light of explanation of her worsening cardiac function - Hold beta-orion therapy until euvolemic; when reasonable to start, recommend metoprolol XL 25 mg daily - Ischemic assessment can be considered as an outpatient, but due to patient's advanced age, revascularization options with mortality benefit are likely limited (2) Elevated troponin: PLAN: - Etiology in the setting of heart failure exacerbation due to microcirculatory compression with high LVEDP - Treatment as above (3) Pulmonary embolus: PLAN: - Low risk PE. Segmental filling defect seen involving the proximal part of the posterior segmental division of right descending pulmonary artery in keeping with pulmonary thromboembolism -No RV strain seen on echocardiogram, mildly elevated troponins - Continue therapeutic Eliquis - Discontinue aspirin 81 mg daily (4) Nonrheumatic aortic valve insufficiency: PLAN: - Routine valvular surveillance as an outpatient HPI Consult Data Date of Consult: 07/11/25 HPI Narrative Reason for Consultation: Heart failure HPI Narrative: HUBERT DAVIS, is a 89 F with past medical history of coronary artery disease status post stenting to her pLAD on 02/27/2019 with a drug-eluting stent and PTCA/drug-eluting stent to proximal diagonal 1 and PTCA to mid LAD at bifurcation of diagonal on 03/08/2019, MVP, mitral regurgitation, aortic valve regurgitation, hyperlipidemia, hypertension, SLE. Patient has followed with [facility]. Notably, patient was admitted in 2022 with concern for worsening obstructive disease. Coronary angiography at that time showed patent stents with no residual obstructive disease. Last ejection fraction was 45% on echocardiogram in 12/2024. Patient has had a history of GDMT intolerance. Has been documented that she has not been able to tolerate Lasix, Imdur, losartan, spironolactone. She also has a documented allergy to carvedilol, Plavix, statins. Documented home cardiac medications include only aspirin. Patient presented to [facility] with complaints of worsening shortness of breath, over the past several weeks, worsening 2 to 3 days prior to admission. Chest x-ray on admission showed concern of volume overload, NT proBNP was 14K. CT PE protocol on 07/10 was performed, which showed segmental PE as well as cardiogenic pulmonary edema and pleural effusions. HST: 45-->44. Creatinine: 1.3. Last vitals with blood pressure 151/90 heart rate 107. Patient is satting well on room air. No current antihypertensives or GDMT. I's and O's do not show urine output. Patient seen at bedside today. She is sitting comfortably with no acute complaints. She is still dyspneic on exertion, but feels improved at rest with diuresis. She is hesitant to start any new medications. She admits that over the past 2 months months she has accumulated fluid. She has also developed increasing shortness of breath, that acutely worsened within the last few days. FORMERLY [facility], 1928–1983 Medical History Impacted cerumen of both ears Decreased left ventricular systolic function Impacted cerumen, right ear Arthritis of right hip Wears partial dentures Post-menopausal Depression Diabetes Walker as ambulation aid Low iron Easy bruising Back pain Dietary restriction Difficulty swallowing Heartburn History of edema History of echocardiogram History of CHF (congestive heart failure) History of irregular heartbeat History of Holter monitoring Cardiology follow-up encounter Anxiety Hypothyroidism Chronic pain Osteoporosis Non-smoker Myocardial infarct Hypertension Migraines Lupus Chronic kidney disease (CKD) stage G3a/A1, moderately decreased glomerular filtration rate (GFR) between 45-59 mL/min/1.73 square meter and albuminuria creatinine ratio less than 30 mg/g COVID-19 (~12/2021) Contact with and (suspected) exposure to other viral communicable diseases URI (upper respiratory infection) Rheumatoid arthritis Presence of stent in coronary artery (~03/08/19) GERD (gastroesophageal reflux disease) Essential (primary) hypertension Pure hypercholesterolemia Atherosclerosis of [place] coronary artery of [place] heart without angina pectoris Non-rheumatic tricuspid valve insufficiency Dyspnea Diastolic dysfunction Hx of congestive heart failure Nonrheumatic mitral valve insufficiency Nonrheumatic aortic valve insufficiency Nonrheumatic mitral valve prolapse CHF (congestive heart failure) Old myocardial infarction Troponin I above reference range Chest pain Home Medications ?Medication ?Instructions ?Recorded ?Last Taken ?Type colesevelam 625 mg tablet (WelChol) 1,250 mg PO DINNER diabetes 12/15/19 07/08/25 08:00 History 1,250 mg cholecalciferol (vitamin D3) 25 1,000 unit PO DAILY yan pplement 08/24/20 07/09/25 08:00 History mcg (1,000 unit) tablet 1,000 unit calcium carbonate 500 mg PO DAILY supplement 1 07/09/25 08:00 History 500 mg artifi.tears(hypromellose)(PF) 1.7 2 drp ophthalmic (e ye) .AM eye 08/09/22 02/25/23 History % eye drops with applicator health hydroxychloroquine 200 mg tablet 200 mg PO DAILY Healt h 07/22/23 07/09/25 08:00 History 200 mg folic acid 1 mg tablet 1 mg PO DAILY General health 09/20/23 07/09/25 08:00 History 1 mg acetaminophen 500 mg tablet 1,000 mg (2 x 500 mg) PO Q 8 #0 tabs 10/10/23 07/09/25 08:00 Rx 500 mg tramadol 50 mg tablet 50 mg PO Q6H PRN pain 1-10 7 days 10/10/23 07/09/25 08:00 Rx #28 tabs 25 mg aspirin 81 mg chewable tablet 81 mg PO QDAY Anticoagul ant 09/29/24 07/09/25 08:00 History 81 mg coenzyme Q10 100 mg capsule 100 mg PO QDAY supplement 09/29/24 07/09/25 08:00 History 100 mg polysaccharide iron complex 150 mg 150 mg PO QDAY supp lement 02/16/25 07/09/25 08:00 History iron capsule (Ferrex) 150 mg furosemide 20 mg tablet 20 mg PO DAILY #90 tabs 03/0307/09/25 08:00 Rx 10 mg levothyroxine 25 mcg tablet 25 mcg PO .5 days a week t hyroid 04/15/25 07/09/25 08:00 History 50 mcg benzonatate 200 mg capsule 200 mg PO TID PRN cough #20 caps 05/24/25 Unknown Rx minocycline 100 mg capsule 100 mg PO BID infection 02/2407/08/25 08:00 History 100 mg Allergy/AdvReac Type Severity Reaction Status Date / Time nitrofurantoin (From Allergy Intermediate thrush Verified 07/09/25 19:33 Macrobid) latex Allergy Mild Rash Verified 07/09/25 19:33 Penicillins (PCN) Allergy not sure Verified 07/09/25 19:33 Kknfirn-KBR-XnL Reductase Allergy All blood Verified 07/09/25 19:33 Inhibitor (Vgsnrit-Pem-Qvi cells low Reductase Inhibitor) amoxicillin (From Augmentin) AdvReac Severe syncope Verified 07/09/25 19:33 clavulanic acid (From AdvReac Severe syncope Verified 07/09/25 19:33 Augmentin) carvedilol (From Coreg) AdvReac Intermediate Very Verified 07/09/25 19:33 fatigued on smallest dose clopidogrel (From Plavix) AdvReac Intermediate Severe Verified 07/09/25 19:33 diarrhea isosorbide AdvReac Intermediate severe Verified 07/09/25 19:33 headache spironolactone AdvReac Intermediate Adominal Verified 07/09/25 19:33 pain, poor appetite, nausea doxycycline AdvReac GI Verified 07/09/25 19:33 symptoms, emesis Sulfa (Sulfonamide AdvReac Nausea/Vom/ Verified 07/09/25 19:33 Antibiotics) Diarrhea Family History Father CAD (coronary artery disease) Myocardial infarction Mother CVA (cerebral vascular accident) Brother Aneurysm Brother Heart disease Myocardial infarction Sister Afib Parkinson's disease CVA (cerebral vascular accident) Surgical History Status post total hip replacement, right History of cardiac catheterization Hx of colonoscopy Hx of right cataract extraction Hx of left cataract extraction History of coronary artery stent placement History of left heart catheterization (LHC) (~01/24/21) Presence of coronary angioplasty implant and graft (~03/08/19) S/P coronary artery stent placement (03/08/19) History of dilatation and curettage History of appendectomy History of total adrenalectomy Social History household members: spouse Smoking Status: Never smoker Electronic Cigarette Use: not used second hand exposure: No alcohol intake: never substance use type: does not use caffeine: Yes Type: coffee Number of servings: 1 what type of physical activity do you participate in: other details: [employer] frequency: 3-4 times per week duration: 45-60 minutes/day seatbelt use: always do you feel safe at home: Yes ROS ROS Narrative 14 point review systems reviewed, and negative unless specified in HPI above. Physical Exam Narrative Gen: A&Ox3, NAD ?HEENT: Normocephalic/Atraumatic, MMM ?Neck: Supple, JVD noted ?Pulm: Normal work of breathing, CTA bilaterally with no wheezes or crackles ?CV: RRR, normal S1/S2, no m/r/g ?Abd: Soft, NT/ND ?Extr: Warm to touch, significant lower extremity edema ?Neuro: No gross focal deficits, normal speech ?Psych: Normal affect, answers questions appropriately Objective Data Vital Signs: Vital Signs Temp Pulse Resp BP Pulse Ox O2 Del Method 98.0 F 107 H 18 151/90 H 94 Room Air 07/11/25 08:53 07/11/25 08:53 07/11/25 08:53 07/11/25 08:53 07/11/25 08:53 07/11/25 08:53 Oxygen Delivery Method Room Air Weight: 122 lb 2.177 oz Body Mass Index (BMI) 23.1 Intake & Output: Intake and Output for Last 24 Hours 07/09/25 07/10/25 07/11/25 23:59 23:59 23:59 Intake Total 500 / 500 240 / 240 Balance 500 / 500 240 / 240 Lab / Micro Data 07/11/25 06:10 07/11/25 08:45 Labs: Laboratory Results - last 24 hr 07/11/25 06:10: WBC 4.3 L, RBC 3.58 L, Hgb 10.7 L, Hct 31.2 L, MCV 87.2, MCH 29.9, MCHC 34.3, RDW Std Deviation 40.7, RDW Coeff of Young 12.8, Plt Count 178, MPV 9.8, Sodium 121 L, Potassium 4.3, Chloride 89 L, Carbon Dioxide 21.3, Anion Gap 11, BUN 40 H, Creatinine 1.56 H, Estim Creat Clear Calc 18.45 L, Est GFR (MDRD) Non-Af 32 L, BUN/Creatinine Ratio 25.9 H, Glucose 84, Calcium 8.8 07/11/25 08:45: Sodium 122 L, Potassium 4.5, Chloride 91 L, Carbon Dioxide 21.8, Anion Gap 10, BUN 39 H, Creatinine 1.48 H, Estim Creat Clear Calc 19.45 L, Est GFR (MDRD) Non-Af 34 L, BUN/Creatinine Ratio 26.0 H, Glucose 88, Serum Osmolality 278 L, Calcium 8.7, Magnesium 2.1 07/11/25 09:00: Ur Random Sodium < 20, Urine Creatinine 115.00, Urine Potassium 37.0, Urine Chloride < 20, Urine Urea Nitrogen 978 Cardiology Labs/Tests Supplemental Information Echo Complete 12/2024 Interpretation Summary The left ventricular ejection fraction is 45 %. Stage 1 diastolic dysfunction. Mildly dilated left ventricle. Mild (1+) mitral valve insufficiency. Pulmonary artery systolic pressure is 40 mmHg. Echocardiogram 08/14/2023: Interpretation Summary The estimated ejection fraction is 50-55 %. Diastolic function is indeterminate. The left atrium is mildly enlarged. Mild (1+) mitral valve insufficiency. Mild (1+) aortic valve insufficiency. Echocardiogram from 11/08/2020: Interpretation Summary Left ventricular systolic function is normal. The estimated ejection fraction is 55 %. Apical false tendon noted. The left atrium is mildly enlarged. Moderate diffuse mitral valve thickening. 2D echocardiographic images appearing c/w redundant and / or ruptured chordae tendonae. Mild to moderate mitral valve prolapse. Mild-Moderate (1-2+) eccentric mitral valve insufficiency. Moderate (2+) tricuspid valve insufficiency. Mild diffuse aortic valve thickening. Mild focal aortic valve calcification. Mild-Moderate (1-2+) aortic valve insufficiency. Trivial pulmonic valve insufficiency. Trivial pericardial effusion. There are no echocardiographic indications of cardiac tamponade. Right ventricular systolic pressure estimated to be 31 mmHg. No evidence for diastolic dysfunction. Stress Test Report 11-08-2020 Impression: 1. Rest and stress by current nuclear imaging demonstrate myocardial perfusion changes in the apical segments status post stress potentially compatible with an area of stress-induced myocardial ischemia, however, an element of physiologic apical thinning cannot necessarily be excluded. 2. The gated Cardiolite study reports an LVEF of 88%. Cardiac cath 02/26/2023: Nonobstructive coronary artery disease with stents in the LAD and diagonal vessel patent and mild diffuse disease noted in the circumflex artery and right coronary artery. CORONARY ANGIOGRAPHY DOMINANCE: Right Dominant LEFT HEART ASSESSMENT Left Ventricular Ejection Fraction: by LV Gram 55 % Normal LV wall motion Normal Left Ventricular systolic function LEFT MAIN: Angiographically normal LEFT ANTERIOR DESCENDING ARTERY: Previously placed stents in the proximal left anterior descending arteries patent with mid segment 40 to 50% stenosis present DIAGONAL 1: Proximal - Previously placed stent is patent CIRCUMFLEX ARTERY: Midsegment with 40 to 50% stenosis with 3 obtuse marginal branches which are patent and posterolateral branch which is normal RIGHT CORONARY ARTERY: Posterior takeoff with mild 20 to 30% diffuse stenosis present Holter monitor from 09/06/2023: Normal sinus rhythm with RBBB and PACs and PVCs. Minimum heart rate 53 bpm. Average heart rate 80 bpm. Maximal heart 117 bpm. Ventricular ectopy 0.8%. Supraventricular ectopy 0.1%. Longest R to R interval 1.8 seconds. No atrial fibrillation noted. No ventricular tachycardia noted. The patient kept a diary with no symptoms noted. Carotid Duplex 01/15/22 Interpretation Summary Mild (<50%) stenosis right extracranial internal carotid. Mild (<50%) stenosis left extracranial internal carotid. Flow within the vertebral arteries is antegrade bilaterally. Labs: No Data to Display Diagnostics: Echocardiogram Chest X-Ray Pulmonary: No Data to Display Past Visits: Cardiology Visit 04/15/25 07/11/25 06:10: WBC 4.3 L, RBC 3.58 L, Hgb 10.7 L, Hct 31.2 L, MCV 87.2, MCH 29.9, MCHC 34.3, Plt Count 178, MPV 9.8, Sodium 121 L, Potassium 4.3, Chloride 89 L, Carbon Dioxide 21.3, Anion Gap 11, BUN 40 H, Creatinine 1.56 H, Est GFR (MDRD) Non-Af 32 L, BUN/Creatinine Ratio 25.9 H, Glucose 84, Calcium 8.8 07/11/25 08:45: Sodium 122 L, Potassium 4.5, Chloride 91 L, Carbon Dioxide 21.8, Anion Gap 10, BUN 39 H, Creatinine 1.48 H, Est GFR (MDRD) Non-Af 34 L, B UN/Creatinine Ratio 26.0 H, Glucose 88, Serum Osmolality 278 L, Calcium 8.7, Magnesium 2.1 Rhythm: EKG: ECHO: Stress Test: Cardiac Cath: PCI: CT Surgery: Holter monitor: EPS: PPM: CXR: Chest CT Scan: Radiography Diagnostic Testing: Radiology Impression Echocardiogram 07/10/25 05:55 Interpretation Summary Left ventricle is moderately enlarged Left ventricle EF by 2D Simpsons biplane: 25% Left ventricular systolic function is severely reduced Grade 2 diastolic dysfunction, elevated left atrial filling pressure. There is severe global hypokinesis of the left ventricle. Moderate aortic regurgitation Compared to echocardiogram on 01/19/2025, left ventricular systolic function has decreased. Ordering Physician: Colleen Ruiz Referring Physician: Dori Boyd M.D. Performed By: Jessica Shen RCS ÍN Risk Score for UA/STEMI Assesmment (YES = 1) Risk Stratification Applicable: No
[2025-07-11] MEDS: Furosemide 20 MG/2 ML VIAL IV (09:47)
[2025-07-11 09:52] LABS: Osmolality, Urine 589 mOsm/KG
--- NOTE | 2025-07-11 17:37 | NURSING ---
Updated daughter Kyra per patients request. Aware of thoracentesis tomorrow
[2025-07-11] MEDS: 0.9% Saline Lock 10 ML Syringe IV (21:54)
[2025-07-12] VITALS (13 sets, daily range): BP systolic 106–141; BP diastolic 70–90; PULSE 80–96; RESP 16–18; TEMP 36.4–36.8; O2SAT 93–100; BMI 22.6
[2025-07-12 05:36] LABS: Hematocrit 31.5 % (37-47); Hemoglobin 10.9 g/dL (12.0-15.0); Mean Corp Hgb Conc 34.6 g/dL (32-36); Mean Corpuscular Volume 87.7 fL (81-99); Mean Platelet Vol. 9.7 fl (6.2-12.0); Platelet Count 173 K/mm3 (150-450); RBC Distribution Width CV 13.2 % (11.6-14.6); RBC Distribution Width SD 42.3 fl (35.1-43.9); Red Blood Count 3.59 M/mm3 (4.2-5.4); White Blood Count 4.6 K/mm3 (4.4-11.0)
[2025-07-12 05:58] LABS: Prothrombin Time (Protime)PT. 22.9 SECONDS (11.7-14.9)
[2025-07-12 05:59] LABS: Partial Thromboplast Time 36.0 Seconds (24.1-36.2)
--- NOTE | 2025-07-12 06:00 | US_ITS ---
PROCEDURE: THORACENTESIS W US 07/12/2025 REASON FOR EXAM: BILAT PLEURAL EFFUSIONS W/ SIG SOB TECHNIQUE: THORACENTESIS W US. The procedure as well as the benefits and possible complications including infection and bleeding as well as pneumothorax were explained to the patient. Informed consent was obtained. The skin overlying the right hemithorax was prepped and draped in the usual sterile fashion. Following local anesthetic application, a 5 Ecuadorean catheter was placed into the pleural cavity. 470 cc of clear fluid was aspirated. The patient tolerated the procedure well. A 100 mL sample was sent to the laboratory. COMPARISON: None FINDINGS: Successful ultrasound-guided right thoracentesis. US/Thoracentesis W US IMPRESSION: Successful ultrasound-guided right thoracentesis with removal of 470 cc of larissa r emili colored fluid. The patient tolerated the procedure well. No immediate complication noted. Reading Location: [place] [address]
[2025-07-12 06:11] LABS: LDH 175 U/L (84-246)
[2025-07-12 06:21] LABS: Anion Gap 10 (5-15); BUN 34 mg/dL (4-19); BUN/Creat Ratio 25.2 RATIO (10-20); Calcium,Total 9.0 mg/dL (7.6-11.0); Carbon Dioxide 23.1 mmol/L (21.0-32.0); Chloride 92 mmol/L (98-108); Estimated Creatinine Clearance 21.48 ml/min (50-250); Glucose 86 mg/dL (70-99); Potassium 4.3 mmol/L (3.3-5.1)
[2025-07-12] MEDS: Cholecalciferol (VIT D3) 25 MCG TABLET (1,000 UNITS) PO (09:09)
[2025-07-12] MEDS: Calcium (Elemental) 500 MG Tablet PO (09:10)
[2025-07-12] MEDS: Furosemide 20 MG/2 ML VIAL IV (09:13)
[2025-07-12] MEDS: Lidocaine 2% (20 ml mdv) 20 ML Vial INFILT (10:38)
--- NOTE | 2025-07-12 10:45 | FLU_PTH ---
PATIENT: HUBERT DAVIS LOC: [facility] U#:[id number] AGE/SX: 89/F ROOM: [facility] RE07/10/[address]: Dr. Sony Ibrahim MD : 1935 BED: 1 DIS: 07/13/2025 SPEC #: [id number] RECD: 07/12/25 10:57 STATUS: [facility] REQ #: [id number] SEBASTIEN: 07/12/25 10:[address]: Sony Ibrahim DEPT: CYTOLOGY RECD BY: Christiano Perez ENTERED: 07/12/25 12:07 SP TYPE: Fluid OTHR DR: DO Dr. Dori Thompson DO Dr. Kathryn Lee, DO Dr. Tianna Mooney MD Tissues: A - Pleural fluid, NOS Procedures: Pap Stain (control) Special Stain Group II Surgery Specimen Level IV Cytospin Fluid HEADER OPERATION: Thoracentesis PRE-OP DIAGNOSIS: Pleural effusion TISSUE SUBMITTED: A- Thoracentesis fluid for cytology CYTOLOGY GROSS A. Received is 85 ml of hazy-yellow fluid labeled with the patient's name and and designated per the requisition as Thoracentesis fluid. Submitted for cytology and cell block preparation. 07/12/2025 CPT: 17844,22476
--- NOTE | 2025-07-12 10:47 | PCM.PN.HOSP ---
Subjective Subjective Doing well, no issues overnight. Awaiting thoracentesis Objective Data Objective Data Vital Signs: Vital Signs Temp Pulse Resp BP Pulse Ox O2 Del Method 97.8 F 93 18 129/89 H 97 Room Air 07/12/25 07:20 07/12/25 07:20 07/12/25 07:20 07/12/25 07:20 07/12/25 07:20 07/12/25 08:20 Oxygen Delivery Method Room Air Weight: 119 lb 11.376 oz Body Mass Index (BMI) 22.6 Intake & Output: Intake and Output for Last 24 Hours 07/11/25 07/12/25 07/13/25 03:59 03:59 03:59 Intake Total 240 / 240 800 / 800 Output Total 1400 / 1400 350 / 350 Balance 240 / 240 -600 / -600 -350 / -350 Lab / Micro Data 07/12/25 05:05 07/12/25 05:05 Labs: Laboratory Results - last 24 hr 07/12/25 05:05: WBC 4.6, RBC 3.59 L, Hgb 10.9 L, Hct 31.5 L, MCV 87.7, MCH 30.4, MCHC 34.6, RDW Std Deviation 42.3, RDW Coeff of Young 13.2, Plt Count 173, MPV 9.7, PT 22.9 H, INR 2.0, APTT 36.0, Sodium 125 L, Potassium 4.3, Chloride 92 L, Carbon Dioxide 23.1, Anion Gap 10, BUN 34 H, Creatinine 1.34 H, Estim Creat Clear Calc 21.48 L, Est GFR (MDRD) Non-Af 38 L, BUN/Creatinine Ratio 25.2 H, Glucose 86, Calcium 9.0, Lactate Dehydrogenase 175, Total Protein 5.8 L Micro: Microbiology 07/09/25 21:38 Mucosa - Nose SARS-CoV-2, Influenza & RSV (PCR) - Final Physical Exam Narrative General: Alert, Oriented x3, Cooperative, No apparent distress HEENT: Atraumatic, PERRLA, EOMI, Normocephalic Oral: Moist Mucosa Neck: Supple, No JVD Lungs: Diminished, Normal air movement, No rhonchi, No wheeze, No rales Cardiovascular: Regular rate, Regular Rhythm, Normal S1, Normal S2, No murmurs Abdomen: Soft, Non Tender, Non-Distended, No Hepato-splenomegaly Extremities: No edema, Capillary Refill Less than 3 Seconds Skin: No rashes, No breakdown Musculoskeletal: No Tenderness to Palpation of Joints or Extremities Neurological: No focal neurological deficits, moves all extremities Psych/Mental Status: Normal Affect, Appropriate Assessment & Plan Assessment/Plan (1) Hypoxia: (2) Acute on chronic HFrEF (heart failure with reduced ejection fraction): PLAN: Plan # Acute hypoxia secondary to acute exacerbation of chronic combined heart failure and PE -Admit to telemetry -proBNP 13,000 - CTA with interstitial changes concerning for pulmonary edema -Continue IV lasix -Last echo with EF of 45% and stage I diastolic dysfunction, PASP 40 -Repeat echo ordered -Daily weights, I's and O's - Volume restriction and sodium restriction - Patient did have pleural effusion noted, depending on patient's symptoms and progress may consider repeat imaging and potential thoracentesis though if symptoms significantly improve may be able to avoid this altogether -07/11: Patient's EF went from 45% less than 6 months ago to 25% on repeat echocardiogram with LV V dysfunction severely reduced and grade 2 diastolic dysfunction, patient on IV Lasix, cardiology consulted given significant reduction in EF. Also repeating chest x-ray, patient still with difficulty taking deep breath, may need to consider thoracentesis tomorrow if effusion remains unchanged. Kidney function did bump but patient still with suspected effusions and short of breath so decreasing Lasix 07/12/2025: Appreciate cardiology's assistance, continue with diuresis pending thoracentesis today, diagnostic labs have been ordered. Continue with Eliquis # Acute PE - CTA with filling defect in proximal portion of the posterior segment of right descending pulmonary artery consistent with PE - Patient started on Eliquis -07/11: Continue loading dose of anticoagulation 07/12/2025: Continue with Eliquis # Hyponatremia -Patient 120 on presentation, this a.m. 121 -Has previously had problems with hyponatremia as well going all the way back to 2019 -Suspect secondary to fluid overload given proBNP of 13,000 - TSH 3.09 - Diuresing, will follow, further workup if not improving with treatment of underlying fluid overload -07/11: Suspected due to fluid overload however sodium 121 again making this less likely as she is being diuresed. Checking urine studies and serum osmole's to help better characterize 07/12/2025: Hyponatremia is improving to 125 today given increased diuresis # Elevated troponin - First troponin 45 with a repeat of 44 - Suspect that this is due to patient's heart failure exacerbation and PE - No further workup at this time - Monitor on telemetry - Repeat echo ordered -07/11: Repeat echo with no acute wall motion abnormality but does have significant decrease in EF to 25%, cardiology consulted as above 07/12/2025: Troponin elevation is insignificant #Hx of CAD -w/ previous stenting -Continue home medications -07/11: No wall motion abnormalities but given significant decrease in EF cardiology consulted, continue other home medications #Hypothyroidism -Continue Synthroid - TSH within normal limits date # History of lupus - Continue hydroxychloroquine DVT: Eliquis Charges/Coding Visit Charges Inpatient E&M: 03165 Subs Hosp L2
[2025-07-12 11:07] LABS: Cytology, Body Fluid / CSF SEE PATHOLOGY REPORT
[2025-07-12] MEDS: APIXABAN 5 MG TABLET 10 MG PO ×2 (11:07→21:36)
[2025-07-12 11:48] LABS: Body Fluid Mononuclear WBC # 0.246 10^3/uL; Body Fluid Mononuclear WBC % 90.8 %; Body Fluid Polynuclear WBC # 0.025 10^3/uL; Body Fluid Polynuclear WBC % 9.2 %; White Blood Count/Body Fluid 0.271 10^3/uL
[2025-07-12 12:20] LABS: Glucose, Body Fluid 108 mg/dL (Not Establ.)
[2025-07-12 12:32] LABS: Auto B Fluid Analyzer BKGD Ct COUNTS W/IN LIMITS (W/IN LIMITS); Source- Body Fluid THORACENTESIS
[2025-07-12 12:33] LABS: Appearance/Body Fluid SL CLDY; Color/Body Fluid YELLOW
[2025-07-12 12:34] LABS: Red Cell Count/Body Fluid 340 /mm3
--- NOTE | 2025-07-12 14:15 | RAD_ITS ---
PROCEDURE: CHEST INSP/EXP 2 VIEW 07/12/2025 REASON FOR EXAM: POST THORA TECHNIQUE: Procedure Code: [id number] Modality: DX Procedure: CHEST INSP/EXP 2 VIEW AP inspiration expiration views were obtained following the right thoracentesis. COMPARISON: Prior chest radiograph dated July 09, 2025. FINDINGS: The patient is status post right thoracentesis. No evidence of pneumothorax. Residual left pleural-parenchymal changes. RAD/Chest Insp/Exp 2 View IMPRESSION: No evidence of pneumothorax following the right thoracentesis. Reading Location: [place] [address]
[2025-07-12 16:06] LABS: Pathologist Comment/Body Fluid Reviewed
--- NOTE | 2025-07-12 16:14 | CHAPLAIN ---
Type of Pastoral Visit _x__ Initial Visit ___ Follow-up Visit ___ On-call Visit ___ General Patient Visit ___ Spiritual Assessment ___ Family Conference ___ Bereavement ___ Rapid Response ___ Code Blue ___ Other (describe below) Pastoral Care Referral From _x__ Patient ___ Family ___ Nurse ___ Physician ___ Speech Therapy Assistant ___ Materials Mgmt Tech ___ Other (describe below) Sacrament/Intervention _x__ Active listening ___ Anointing ___ Advent ___ Bereavement ___ Communion ___ Christine exploration ___ ___ Life review ___ Prayer ___ Reconciliation ___ Sacrament of Sick ___ Supportive presence ___ Wedding ___ Other (describe below) Pastoral Comments patient is alert with daughter at the bedside; pt says that she is feeling better; pt denies any concerns or needs
[2025-07-12] MEDS: 0.9% Saline Lock 10 ML Syringe IV (21:36)
--- NOTE | 2025-07-13 01:52 | EKG12_ITS ---
Test Reason : RHYTHM CHNG Blood Pressure : */* mmHG Vent. Rate : 80 BPM Atrial Rate : 80 BPM P-R Int : 182 ms QRS Dur : 134 ms QT Int : 432 ms P-R-T Axes : 76 -59 95 degrees QTcB Int : 498 ms Normal sinus rhythm Right bundle branch block Left anterior fascicular block Bifascicular block Abnormal ECG When compared with ECG of 09-Jul-2025 21:27, MANUAL COMPARISON REQUIRED DATA IS UNCONFIRMED Confirmed by Ko Miranda ([id number]), copy editor FRANCOIS ESTEVEZ ([id number]) on 07/13/2025 11:39:11 AM Referred By: Confirmed By: Ko Miranda
[2025-07-13 03:00] VITALS: PULSE 78
[2025-07-13 03:06] VITALS: BMI 21.7
[2025-07-13 03:17] VITALS: BP 129/87; PULSE 79; RESP 16; TEMP 36.4; O2SAT 96
[2025-07-13 03:20] LABS: Hematocrit 32.1 % (37-47); Hemoglobin 11.2 g/dL (12.0-15.0); Immature Granulocytes Count 0.020 X10^3/uL (0.0-0.0); Mean Corp Hgb Conc 34.9 g/dL (32-36); Mean Corpuscular Volume 88.7 fL (81-99); Mean Platelet Vol. 9.5 fl (6.2-12.0); NRBC Flagged by Analyzer 0 % (0-5); Platelet Count 186 K/mm3 (150-450); RBC Distribution Width CV 13.3 % (11.6-14.6); RBC Distribution Width SD 43.2 fl (35.1-43.9); Red Blood Count 3.62 M/mm3 (4.2-5.4); White Blood Count 4.1 K/mm3 (4.4-11.0)
[2025-07-13 04:02] LABS: Anion Gap 7 (5-15); BUN 40 mg/dL (4-19); BUN/Creat Ratio 27.6 RATIO (10-20); Calcium,Total 9.1 mg/dL (7.6-11.0); Carbon Dioxide 27.0 mmol/L (21.0-32.0); Chloride 95 mmol/L (98-108); Estimated Creatinine Clearance 19.99 ml/min (50-250); Glucose 90 mg/dL (70-99); Potassium 4.6 mmol/L (3.3-5.1)
[2025-07-13 08:15] LABS: BUN 25 mg/dL (4-19); BUN/Creat Ratio 21.7 RATIO (10-20); Estimated Creatinine Clearance 25.03 ml/min (50-250); Glucose 69 mg/dL (70-99)
[2025-07-13 08:16] LABS: Anion Gap 15 (5-15); Calcium,Total 8.2 mg/dL (7.6-11.0); Chloride 88 mmol/L (98-108); Potassium 4.7 mmol/L (3.3-5.1)
[2025-07-13 08:17] LABS: Carbon Dioxide 17.2 mmol/L (21.0-32.0)
[2025-07-13 09:15] VITALS: BP 101/66; PULSE 74; RESP 15; TEMP 36.4; O2SAT 97
[2025-07-13] MEDS: Calcium (Elemental) 500 MG Tablet PO (09:18)
[2025-07-13] MEDS: APIXABAN 5 MG TABLET 10 MG PO (09:18)
[2025-07-13] MEDS: Cholecalciferol (VIT D3) 25 MCG TABLET (1,000 UNITS) PO (09:18)
[2025-07-13] MEDS: Furosemide 20 MG/2 ML VIAL IV (09:19)
--- NOTE | 2025-07-13 09:46 | PCM.PN.HOSP ---
Subjective Subjective Doing better, she had a thoracentesis yesterday that demonstrated transudative effusion based on fluid analysis and they were able to drain 470 cc of clear fluid Objective Data Objective Data Vital Signs: Vital Signs Temp Pulse Resp BP Pulse Ox O2 Del Method O2 Flow Rate 97.6 F L 79 16 129/87 H 96 Room Air 97 07/13/25 03:17 07/13/25 03:17 07/13/25 03:17 07/13/25 03:17 07/13/25 03:17 07/13/25 03:17 07/12/25 11:00 Oxygen Flow Rate (L/min) 97 Oxygen Delivery Method Room Air Weight: 114 lb 10.246 oz Body Mass Index (BMI) 21.7 Intake & Output: Intake and Output for Last 24 Hours 07/12/25 07/13/25 07/14/25 03:59 03:59 03:59 Intake Total 800 / 800 720 / 720 Output Total 1400 / 1400 1220 / 1220 Balance -600 / -600 -500 / -500 Lab / Micro Data 07/13/25 03:10 07/13/25 03:10 Labs: Laboratory Results - last 24 hr 07/09/25 21:38: Sodium Cancelled 07/09/25 21:38: Sodium 120 L, Potassium Cancelled 07/09/25 21:38: Potassium 4.7, Chloride Cancelled 07/09/25 21:38: Chloride 88 L, Carbon Dioxide Cancelled 07/09/25 21:38: Carbon Dioxide 17.2 L, Anion Gap Cancelled 07/09/25 21:38: Anion Gap 15, BUN Cancelled 07/09/25 21:38: BUN 25 H, Creatinine Cancelled 07/09/25 21:38: Creatinine 1.15, Estim Creat Clear Calc Cancelled 07/09/25 21:38: Estim Creat Clear Calc 25.03 L, Est GFR (MDRD) Non-Af Cancelled 07/09/25 21:38: Est GFR (MDRD) Non-Af 46 L, BUN/Creatinine Ratio Cancelled 07/09/25 21:38: BUN/Creatinine Ratio 21.7 H, Glucose Cancelled 07/09/25 21:38: Glucose 69 L, Calcium Cancelled 07/09/25 21:38: Calcium 8.2 07/12/25 10:45: Fluid Source THORACENTESIS, Fluid Color YELLOW, Fluid Appearance SL CLDY, Fluid WBC 0.271, Fluid RBC 340, Fluid Tot Cell Count 0.324 H, Fld Polynuclear WBCs # 0.025, Fld Polynuclear WBCs % 9.2, Fluid Mononuclear WBCs 0.246, Fld Mononuclear WBCs % 90.8, Fluid Neutrophils 19, Fluid Lymphocytes 72, Fluid Monocytes 4, Fld Mesothelial Cells 5, Fl Pathologist Comment Reviewed, Fluid Glucose 108, Fluid Total Protein 2.5, Fluid LDH 93, Fluid Comment 2 SEE COMMENT 07/13/25 03:10: WBC 4.1 L, RBC 3.62 L, Hgb 11.2 L, Hct 32.1 L, MCV 88.7, MCH 30.9, MCHC 34.9, RDW Std Deviation 43.2, RDW Coeff of Young 13.3, Plt Count 186, MPV 9.5, Immature Gran % (Auto) 0.500, Neut % (Auto) 57.1, Lymph % (Auto) 23.3, [place] % (Auto) 15.0 H, Eos % (Auto) 3.6, Baso % (Auto) 0.5, Absolute Neuts (auto) 2.4, Absolute Lymphs (auto) 0.96, Nucleated RBC % 0, Sodium 129 L, Potassium 4.6, Chloride 95 L, Carbon Dioxide 27.0, Anion Gap 7, BUN 40 H, Creatinine 1.44 H, Estim Creat Clear Calc 19.99 L, Est GFR (MDRD) Non-Af 35 L, BUN/Creatinine Ratio 27.6 H, Glucose 90, Calcium 9.1 Micro: Microbiology 07/12/25 10:45 Fluid - Thoracentesis Fluid Gram Stain - Final 07/09/25 21:38 Mucosa - Nose SARS-CoV-2, Influenza & RSV (PCR) - Final Radiography Diagnostic Testing: Radiology Impression Thoracentesis Ultrasound 07/12/25 06:00 IMPRESSION: Successful ultrasound-guided right thoracentesis with removal of 470 cc of clear emili colored fluid. The patient tolerated the procedure well. No immediate complication noted. Reading Location: [facility] Chest X-Ray 07/12/25 14:15 IMPRESSION: No evidence of pneumothorax following the right thoracentesis. Reading Location: [facility] Physical Exam Narrative General: Alert, Oriented x3, Cooperative, No apparent distress HEENT: Atraumatic, PERRLA, EOMI, Normocephalic Oral: Moist Mucosa Neck: Supple, No JVD Lungs: Clear to auscultation, Normal air movement, No rhonchi, No wheeze, No rales Cardiovascular: Regular rate, Regular Rhythm, Normal S1, Normal S2, No murmurs Abdomen: Soft, Non Tender, Non-Distended, No Hepato-splenomegaly Extremities: No edema, Capillary Refill Less than 3 Seconds Skin: No rashes, No breakdown Musculoskeletal: No Tenderness to Palpation of Joints or Extremities Neurological: No focal neurological deficits, moves all extremities Psych/Mental Status: Normal Affect, Appropriate Assessment & Plan Assessment/Plan (1) Hypoxia: (2) Acute on chronic HFrEF (heart failure with reduced ejection fraction): PLAN: Plan # Acute hypoxia secondary to acute exacerbation of chronic combined heart failure and PE -Admit to telemetry -proBNP 13,000 - CTA with interstitial changes concerning for pulmonary edema -Continue IV lasix -Last echo with EF of 45% and stage I diastolic dysfunction, PASP 40 -Repeat echo ordered -Daily weights, I's and O's - Volume restriction and sodium restriction - Patient did have pleural effusion noted, depending on patient's symptoms and progress may consider repeat imaging and potential thoracentesis though if symptoms significantly improve may be able to avoid this altogether -07/11: Patient's EF went from 45% less than 6 months ago to 25% on repeat echocardiogram with LV V dysfunction severely reduced and grade 2 diastolic dysfunction, patient on IV Lasix, cardiology consulted given significant reduction in EF. Also repeating chest x-ray, patient still with difficulty taking deep breath, may need to consider thoracentesis tomorrow if effusion remains unchanged. Kidney function did bump but patient still with suspected effusions and short of breath so decreasing Lasix 07/12/2025: Appreciate cardiology's assistance, continue with diuresis pending thoracentesis today, diagnostic labs have been ordered. Continue with Eliquis 07/13/2025: No need to do a thoracentesis on the left minimal fluid based on CT scan and she is breathing much better, will obtain an ambulatory pulse ox. # Acute PE - CTA with filling defect in proximal portion of the posterior segment of right descending pulmonary artery consistent with PE - Patient started on Eliquis -07/11: Continue loading dose of anticoagulation 07/12/2025: Continue with Eliquis # Hyponatremia -Patient 120 on presentation, this a.m. 121 -Has previously had problems with hyponatremia as well going all the way back to 2019 -Suspect secondary to fluid overload given proBNP of 13,000 - TSH 3.09 - Diuresing, will follow, further workup if not improving with treatment of underlying fluid overload -07/11: Suspected due to fluid overload however sodium 121 again making this less likely as she is being diuresed. Checking urine studies and serum osmole's to help better characterize 07/12/2025: Hyponatremia is improving to 125 today given increased diuresis 07/13/2025: Hyponatremia is resolved, sodium is 129 today recommend outpatient follow-up # Elevated troponin - First troponin 45 with a repeat of 44 - Suspect that this is due to patient's heart failure exacerbation and PE - No further workup at this time - Monitor on telemetry - Repeat echo ordered -07/11: Repeat echo with no acute wall motion abnormality but does have significant decrease in EF to 25%, cardiology consulted as above 07/12/2025: Troponin elevation is insignificant #Hx of CAD -w/ previous stenting -Continue home medications -07/11: No wall motion abnormalities but given significant decrease in EF cardiology consulted, continue other home medications #Hypothyroidism -Continue Synthroid - TSH within normal limits date # History of lupus - Continue hydroxychloroquine DVT: Eliquis Charges/Coding Visit Charges Inpatient E&M: 23244 Subs Hosp L2
[2025-07-13 11:20] VITALS: O2SAT 97; O2SAT 98
--- NOTE | 2025-07-13 11:28 | DCINST_ITS ---
Discharge Instructions DC O2, CPAP, BIPAP needs Home O2 Discharge instructions: No Dressing / Incision Discharge Activity: Return to Normal Activity Dressing / Incision Call your doctor if you observe: Fever of 101 or Higher, Shortness of breath, Dizziness, Fainting spells, Swelling in the ankles, Chest pain and Increased palpitations (irregular heartbeat) Follow Up Care Test Results: Test results from this visit will be discussed in further detail at your follow- up appointment, if applicable. Discharge Plan Admission Admit Date/Time: 07/10/25 00:49 Attending Provider: Sony Ibrahim Primary Care Provider: Dori Boyd Consulting Providers: Colleen Ruiz; Blake Licea; Tianna Mooney Instructions Patient Instructions: RAD RN Thoracentesis Dc Additional Instructions / Restrictions: Follow-up with primary care doctor in 3 to 5 days to monitor your renal function as you were increased on your Lasix. Discharge Orders/Prescriptions Prescriptions: New Eliquis 5 mg Tablet 5 mg PO BID 30 Days Qty: 60 2RF Rx Instructions: Take 2 tablets twice daily for 3 more days then take 1 tablet twice daily Continued colesevelam [WelChol] 625 mg tablet 1,250 mg PO DINNER Rx Instructions: 1,250 mg orally daily i; calcium carbonate 500 mg calcium (1,250 mg) tablet 500 mg PO DAILY artifi.tears(hypromellose)(PF) 1.7 % drops with applicator 2 drp ophthalmic (eye) .AM Patient Comments: PRN or once a day per pt hydroxychloroquine 200 mg tablet 200 mg PO DAILY Patient Comments: TAKE 1 TABLET DAILY aspirin 81 mg tablet,chewable 81 mg PO QDAY coenzyme Q10 100 mg capsule 100 mg PO QDAY polysaccharide iron complex [Ferrex 150] 150 mg iron capsule 150 mg PO QDAY benzonatate 200 mg capsule 200 mg PO TID PRN (Reason: cough) Qty: 20 0RF minocycline 100 mg capsule 100 mg PO BID cholecalciferol (vitamin D3) 25 mcg (1,000 unit) tablet 1,000 unit PO DAILY Patient Comments: supplement levothyroxine 25 mcg tablet 25 mcg PO .5 days a week Patient Comments: thyroid; pt takes 2 -25 mcg tablets(50 mcg total) on fri and sat Rx Instructions: Sun-Thurs folic acid 1 mg tablet 1 mg PO DAILY acetaminophen 500 mg Tablet 1,000 mg PO Q8 Qty: 0 0RF tramadol 50 mg Tablet 50 mg PO Q6H PRN (Reason: pain 1-10) 7 Days Qty: 28 0RF Changed furosemide 20 mg tablet 40 mg PO DAILY Qty: 90 3RF Referrals / Follow Up: Dori Boyd DO [Primary Care Provider, Internal Medicine] - Within 1 Week Disposition Disposition (needs filled in before D/C Order can be placed): Home, Self Care
--- NOTE | 2025-07-13 12:14 | CASEMGMT ---
Patient has order for discharge. Patient is discharging on Elizeke, HARMEET CM called [facility], copay is $88.20. RN CM in to discuss needs at discharge. Patient denies needs or help at discharge. RN CM reminded patient of Eliquis savings card in discharge folder to use when filling prescription, patient voiced understanding. Patient had no further questions or concerns.
--- NOTE | 2025-07-13 12:21 | PHA.DC_ITS ---
Pharmacy [facility] Counseling Pharmacy Service has performed discharge medication reconciliation and counseling for this patient. 1. APIXABAN 10MG PO BID X 3 DAYS, THEN 5MG BID THEREAFTER 2. FUROSEMIDE CHANGED TO 40MG DAILY The patient's discharge medication list was reviewed for discrepancies and discrepancies were resolved. The patient was counseled on the following discharge medications and changes in medications for homegoing were reviewed. The Reason for Use, instructions for use, and potential side effects were reviewed for all new medications. The patient's questions regarding all of their medications were answered. The patient was able to verbally demonstrate an understanding of their discharge medications. Patient counseled by pharmacy informatics specialistTyler. Medications at Discharge Home Medications colesevelam 625 mg tablet (WelChol) 1,250 mg PO DINNER diabetes 12/15/19 cholecalciferol (vitamin D3) 25 mcg (1,000 unit) tablet 1,000 unit PO DAILY supplement 08/24/20 calcium carbonate 500 mg PO DAILY supplement 06/15/22 artifi.tears(hypromellose)(PF) 1.7 % eye drops with applicator 2 drp ophthalmic (eye) .AM eye health 08/09/22 hydroxychloroquine 200 mg tablet 200 mg PO DAILY Health 07/22/23 folic acid 1 mg tablet 1 mg PO DAILY General health 09/20/23 acetaminophen 500 mg tablet 1,000 mg (2 x 500 mg) PO Q8 #0 tabs 10/10/23 tramadol 50 mg tablet 50 mg PO Q6H PRN pain 1-10 7 days #28 tabs 10/10/23 aspirin 81 mg chewable tablet 81 mg PO QDAY Anticoagulant 09/29/24 coenzyme Q10 100 mg capsule 100 mg PO QDAY supplement 09/29/24 polysaccharide iron complex 150 mg iron capsule (Ferrex) 150 mg PO QDAY supplement 02/16/25 levothyroxine 25 mcg tablet 25 mcg PO .5 days a week thyroid 04/15/25 benzonatate 200 mg capsule 200 mg PO TID PRN cough #20 caps 05/24/25 minocycline 100 mg capsule 100 mg PO BID infection 07/08/25 apixaban 5 mg tablet (Eliquis) 5 mg PO BID 30 days #60 tabs 07/13/25 furosemide 20 mg tablet 40 mg (2 x 20 mg) PO DAILY #90 tabs 07/13/25
--- NOTE | 2025-07-13 14:02 | DS.PCM_ITS ---
Providers Date of Admission: 07/10/25 Primary Care Physician: Dr. Dori Boyd DO Consultations 07/11/25 08:16 Consult: Cardiology Routine Consulting Provider: Blake Licea Reason for Consult: EF down to 25% from 45 in <6 months EMERGENT Consult: No MD Notified: Yes Date Notified: 07/11/25 Time Notified: 08:33 Method of Notification: Text Reason For Visit: HYPOXIA 2/2 ACUTE ON HFrEF Diagnosis Discharge Diagnosis (1) Hypoxia: Status: Acute Code(s): R09.02 - Hypoxemia (2) Acute on chronic HFrEF (heart failure with reduced ejection fraction): Status: Chronic Code(s): I50.23 - Acute on chronic systolic (congestive) heart failure Medications at Discharge Home Medications colesevelam 625 mg tablet (WelChol) 1,250 mg PO DINNER diabetes 12/15/19 cholecalciferol (vitamin D3) 25 mcg (1,000 unit) tablet 1,000 unit PO DAILY supplement 08/24/20 calcium carbonate 500 mg PO DAILY supplement 06/15/22 artifi.tears(hypromellose)(PF) 1.7 % eye drops with applicator 2 drp ophthalmic (eye) .AM eye health 08/09/22 hydroxychloroquine 200 mg tablet 200 mg PO DAILY Health 07/22/23 folic acid 1 mg tablet 1 mg PO DAILY General health 09/20/23 acetaminophen 500 mg tablet 1,000 mg (2 x 500 mg) PO Q8 #0 tabs 10/10/23 tramadol 50 mg tablet 50 mg PO Q6H PRN pain 1-10 7 days #28 tabs 10/10/23 aspirin 81 mg chewable tablet 81 mg PO QDAY Anticoagulant 09/29/24 coenzyme Q10 100 mg capsule 100 mg PO QDAY supplement 09/29/24 polysaccharide iron complex 150 mg iron capsule (Ferrex) 150 mg PO QDAY supplement 02/16/25 levothyroxine 25 mcg tablet 25 mcg PO .5 days a week thyroid 04/15/25 benzonatate 200 mg capsule 200 mg PO TID PRN cough #20 caps 05/24/25 minocycline 100 mg capsule 100 mg PO BID infection 07/08/25 apixaban 5 mg tablet (Eliquis) 5 mg PO BID 30 days #60 tabs 07/13/25 furosemide 20 mg tablet 40 mg (2 x 20 mg) PO DAILY #90 tabs 07/13/25 Hospital Course Operations None Procedures 2-D Echocardiogram Summary of Care Provided Minutes Spent on Discharge: 34 Hospital Course: Per HPI: HUBERT DAVIS, is a 89 F who presented to the emergency department at [facility] on 04/08/2025 with shortness of breath. Patient states she has been having slowly worsening shortness of breath over the last 2 to 3 weeks up to maybe a month. She has noticed the chest in the last 48 to 72 hours she has been significantly winded with exertion. She states that she has had to sleep with 2 pillows recently because she is too short of breath if she tries to lie flat. She has had no associated fever chills or cough. She does note that her lower extremities have been swelling some which is not typical for her. She does have a known history of HFrEF having an EF of 45% noted on her most recent echocardiogram in December. The patient states that she does not work a lot of water but does not really watch her sodium intake all that much. She states she has not weighed herself it is not clear if she has had any weight gain. Vital signs on presentation showed temperature of 98.4, heart rate 112, respiratory 28, blood pressure is 147/87 pulse ox was 93% on room air at rest. With exertion the patient dropped her sats to 87% on room air. CBC showed a normal white count with a chronic stable anemia hemoglobin 11.8. Her initial chemistry panel showed hyponatremia with sodium of 120 and markedly low serum bicarb of 6.7 with a normal creatinine and a glucose of 89. An ABG was obtained and she was found to have a pH of 7.37 with a pCO2 of 31 a pO2 of 60 and a bicarb of 18. A repeat BMP was drawn given this discrepancy and was found to be more consistent with a blood gas having a sodium of 123, chloride of 18.9, renal function was normal, and lactic acid was normal at 1.3. Initial troponin was 45 with a delta of 44. I obtained a BNP and it was 13,970. Chest x-ray showed some volume overload but was not super specific. We obtained a CTA of her chest and she was found to have a focal hypodense filling defect in the proximal portion of the posterior segment of the right descending pulmonary artery consistent with pulmonary embolism, bilateral pulmonary interstitial thickening consistent with cardiogenic pulmonary edema and a right-sided pleural effusion that was moderate in size. She was also found to have a left upper lung 4 mm soft tissue nodule with no routine follow-up required per Fleischner criteria. Hospital Course: # Acute hypoxia secondary to acute exacerbation of chronic combined heart failure and PE -Admit to telemetry -proBNP 13,000 - CTA with interstitial changes concerning for pulmonary edema -Continue IV lasix -Last echo with EF of 45% and stage I diastolic dysfunction, PASP 40 -Repeat echo ordered -Daily weights, I's and O's - Volume restriction and sodium restriction - Patient did have pleural effusion noted, depending on patient's symptoms and progress may consider repeat imaging and potential thoracentesis though if symptoms significantly improve may be able to avoid this altogether -07/11: Patient's EF went from 45% less than 6 months ago to 25% on repeat echocardiogram with LV V dysfunction severely reduced and grade 2 diastolic dysfunction, patient on IV Lasix, cardiology consulted given significant reduction in EF. Also repeating chest x-ray, patient still with difficulty taking deep breath, may need to consider thoracentesis tomorrow if effusion remains unchanged. Kidney function did bump but patient still with suspected effusions and short of breath so decreasing Lasix 07/12/2025: Appreciate cardiology's assistance, continue with diuresis pending thoracentesis today, diagnostic labs have been ordered. Continue with Eliquis 07/13/2025: Thoracentesis done yesterday removed 470 cc of clear fluid from the right lung that demonstrated transudative characteristics. Based on her history of heart failure and PE I anticipate that this should not recur in the near future. I discussed with her the possibility for discharge today and she expressed understanding of the risk benefits going home and would like to go home today. She did have an amatory pulse ox which did not demonstrate a need for either oxygen at rest or with ambulation. I do recommend outpatient follow- up with her primary care physician as well as cardiology. Will continue with Lasix 40 mg p.o. daily and monitoring of her renal function. # Acute PE - CTA with filling defect in proximal portion of the posterior segment of right descending pulmonary artery consistent with PE - Patient started on Eliquis -07/11: Continue loading dose of anticoagulation 07/12/2025: Continue with Eliquis 07/13/2025: Continue with Eliquis 10 mg p.o. twice daily for 3 more days then transition to 5 mg p.o. twice daily can follow-up with hematology as an outpatient I anticipate that she will need to be on this for 6 to 9 months. # Hyponatremia -Patient 120 on presentation, this a.m. 121 -Has previously had problems with hyponatremia as well going all the way back to 2019 -Suspect secondary to fluid overload given proBNP of 13,000 - TSH 3.09 - Diuresing, will follow, further workup if not improving with treatment of underlying fluid overload -07/11: Suspected due to fluid overload however sodium 121 again making this less likely as she is being diuresed. Checking urine studies and serum osmole's to help better characterize 07/12/2025: Hyponatremia is improving to 125 today given increased diuresis 07/13/2025: Hyponatremia is resolved, sodium is 129 today recommend outpatient follow-up # Elevated troponin - First troponin 45 with a repeat of 44 - Suspect that this is due to patient's heart failure exacerbation and PE - No further workup at this time - Monitor on telemetry - Repeat echo ordered -07/11: Repeat echo with no acute wall motion abnormality but does have significant decrease in EF to 25%, cardiology consulted as above 07/12/2025: Troponin elevation is insignificant #Hx of CAD -w/ previous stenting -Continue home medications -07/11: No wall motion abnormalities but given significant decrease in EF cardiology consulted, continue other home medications #Hypothyroidism -Continue Synthroid - TSH within normal limits date # History of lupus - Continue hydroxychloroquine Weight / BMI Weight Weight: 114 lb 10.246 oz Body Mass Index (BMI) 21.7 ABG / Lab / Microbiology Data 07/13/25 03:10 07/13/25 03:10 Laboratory: Laboratory Results - last 24 hr 07/09/25 21:38: Sodium Cancelled 07/09/25 21:38: Sodium 120 L, Potassium Cancelled 07/09/25 21:38: Potassium 4.7, Chloride Cancelled 07/09/25 21:38: Chloride 88 L, Carbon Dioxide Cancelled 07/09/25 21:38: Carbon Dioxide 17.2 L, Anion Gap Cancelled 07/09/25 21:38: Anion Gap 15, BUN Cancelled 07/09/25 21:38: BUN 25 H, Creatinine Cancelled 07/09/25 21:38: Creatinine 1.15, Estim Creat Clear Calc Cancelled 07/09/25 21:38: Estim Creat Clear Calc 25.03 L, Est GFR (MDRD) Non-Af Cancelled 07/09/25 21:38: Est GFR (MDRD) Non-Af 46 L, BUN/Creatinine Ratio Cancelled 07/09/25 21:38: BUN/Creatinine Ratio 21.7 H, Glucose Cancelled 07/09/25 21:38: Glucose 69 L, Calcium Cancelled 07/09/25 21:38: Calcium 8.2 07/12/25 10:45: Fl Pathologist Comment Reviewed 07/13/25 03:10: WBC 4.1 L, RBC 3.62 L, Hgb 11.2 L, Hct 32.1 L, MCV 88.7, MCH 30.9, MCHC 34.9, RDW Std Deviation 43.2, RDW Coeff of Young 13.3, Plt Count 186, MPV 9.5, Immature Gran % (Auto) 0.500, Neut % (Auto) 57.1, Lymph % (Auto) 23.3, [place] % (Auto) 15.0 H, Eos % (Auto) 3.6, Baso % (Auto) 0.5, Absolute Neuts (auto) 2.4, Absolute Lymphs (auto) 0.96, Nucleated RBC % 0, Sodium 129 L, Potassium 4.6, Chloride 95 L, Carbon Dioxide 27.0, Anion Gap 7, BUN 40 H, Creatinine 1.44 H, Estim Creat Clear Calc 19.99 L, Est GFR (MDRD) Non-Af 35 L, BUN/Creatinine Ratio 27.6 H, Glucose 90, Calcium 9.1 Microbiology: Microbiology 07/12/25 10:45 Fluid - Thoracentesis Fluid Gram Stain - Final 07/09/25 21:38 Mucosa - Nose SARS-CoV-2, Influenza & RSV (PCR) - Final D/C Instructions Call your doctor if you observe: Fever of 101 or Higher, Shortness of breath, Dizziness, Fainting spells, Swelling in the ankles, Chest pain and Increased palpitations (irregular heartbeat) DC O2, CPAP, BIPAP Needs Home O2 Discharge instructions: No Meaningful Use Info Meaningful Use Meaningful Use Diagnoses (Choose all that apply): None applicable Discharge Plan Admission Admit Date/Time: 07/10/25 00:49 Attending Provider: Sony Ibrahim Primary Care Provider: Dori Boyd Consulting Providers: Colleen Ruiz; Blake Licea; Tianna Mooney Instructions Patient Instructions: DARIN RN Thoracentesis Dc Additional Instructions / Restrictions: Follow-up with primary care doctor in 3 to 5 days to monitor your renal function as you were increased on your Lasix. Discharge Orders/Prescriptions Prescriptions: New Eliquis 5 mg Tablet 5 mg PO BID 30 Days Qty: 60 2RF Rx Instructions: Take 2 tablets twice daily for 3 more days then take 1 tablet twice daily Continued colesevelam [WelChol] 625 mg tablet 1,250 mg PO DINNER Rx Instructions: 1,250 mg orally daily i; calcium carbonate 500 mg calcium (1,250 mg) tablet 500 mg PO DAILY artifi.tears(hypromellose)(PF) 1.7 % drops with applicator 2 drp ophthalmic (eye) .AM Patient Comments: PRN or once a day per pt hydroxychloroquine 200 mg tablet 200 mg PO DAILY Patient Comments: TAKE 1 TABLET DAILY aspirin 81 mg tablet,chewable 81 mg PO QDAY coenzyme Q10 100 mg capsule 100 mg PO QDAY polysaccharide iron complex [Ferrex 150] 150 mg iron capsule 150 mg PO QDAY benzonatate 200 mg capsule 200 mg PO TID PRN (Reason: cough) Qty: 20 0RF minocycline 100 mg capsule 100 mg PO BID cholecalciferol (vitamin D3) 25 mcg (1,000 unit) tablet 1,000 unit PO DAILY Patient Comments: supplement levothyroxine 25 mcg tablet 25 mcg PO .5 days a week Patient Comments: thyroid; pt takes 2 -25 mcg tablets(50 mcg total) on sat and sat Rx Instructions: Sun-Thurs folic acid 1 mg tablet 1 mg PO DAILY acetaminophen 500 mg Tablet 1,000 mg PO Q8 Qty: 0 0RF tramadol 50 mg Tablet 50 mg PO Q6H PRN (Reason: pain 1-10) 7 Days Qty: 28 0RF Changed furosemide 20 mg tablet 40 mg PO DAILY Qty: 90 3RF Referrals / Follow Up: Dori Boyd DO [Primary Care Provider, Internal Medicine] - Within 1 Week Disposition Disposition (needs filled in before D/C Order can be placed): Home, Self Care Charges/Coding Visit Charges Inpatient E&M: 48208 Disch Hosp >30min
[2025-07-13 15:13] LABS: Neutrophil (Segs) 7 %
--- NOTE | 2025-07-14 16:52 | CASEMGMT ---
Return call received from patient from message left by HARMEET JI completing a DC f/u call. Pt states she has noted increased swelling in her legs despite taking the increased lasix dose of 40mg once a day. Pt states she does not weigh herself. Pt reports feeling SOB last night when she went to bed but denies any SOB during the day while she has been ambulating in her home. Pt retrieved her home PO monitor and checked her PO reporting it to be 97-98% and a HR of 102 that was decreasing into the 90's after being at rest. Pt talking without effort noted after performing this task. Pt states she slept on her normal 2 pillows last night. PT states she has a f/u appointment with Dr. Boyd next Saturday 07/21 at 1345 and will be getting her labs checked prior to that scheduled appointment. Pt has not shared her concerns with Dr. Boyd. States she also sees Emerita Robb at the [facility] office. Noted pt saw Dr. Licea during her admission. This HARMEET JI attempted to contact Dr. Boyd's office and Dr. Tyler's office but both are closed at this time. Given pt's stable PO at this time, senior data integration developer provider not paged. Will contact Dr. Boyd's office when it opens at 0700 tomorrow. Call back to patient and discussed options if her SOB were to worsen to call the cardiology senior data integration developer or present to the ED. Pt expressed understanding of these options. Will f/u with the pt in the AM. HARMEET Jones
== END 2025-07-13 14:07 | disposition home or self-care (01) | DRG 291 ==
LOC: ED 21:50 → PCU 07-10 01:18
PROVIDERS: Internal Medicine; Admitting Provider Internal Medicine; Emergency Provider Surgery; PCP Internal Medicine; Visit Provider Family Medicine
DX: I13.0 Hypertensive heart and chronic kidney disease with heart failure and stage 1 through stage 4 chronic kidney disease, or unspecified chronic kidney disease (principal); I26.99 Other pulmonary embolism without acute cor pulmonale; I50.43 Acute on chronic combined systolic (congestive) and diastolic (congestive) heart failure; E87.29 Other acidosis; E87.1 Hypo-osmolality and hyponatremia; J90 Pleural effusion, not elsewhere classified; D63.1 Anemia in chronic kidney disease; Z66 Do not resuscitate; N18.32 Chronic kidney disease, stage 3b; E03.9 Hypothyroidism, unspecified; I25.10 Atherosclerotic heart disease of native coronary artery without angina pectoris; E78.00 Pure hypercholesterolemia, unspecified; I25.2 Old myocardial infarction; G89.29 Other chronic pain; Z95.5 Presence of coronary angioplasty implant and graft; Z79.01 Long term (current) use of anticoagulants; Z79.82 Long term (current) use of aspirin; Z79.890 Hormone replacement therapy; Z79.899 Other long term (current) drug therapy; Z86.16 Personal history of COVID-19
CPT/HCPCS: 32555; 36415; 36600; 71046; 71275; 80048; 80053; 82436; 82570; 82803; 82945; 82962; 83605; 83615; 83735; 83880; 83930; 83935; 84100; 84133; 84155; 84157; 84300; 84443; 84484; 84540; 85025; 85027; 85610; 85730; 87070; 87075; 87205; 87631; 88108; 88305; 88313; 89050; 93005; 93306; 94640; 94668; 97116; 97162; 97165; 97530; 97802; 99252; 99285; Q9967; A4216; G0463; J1938; J2405

== ENCOUNTER → 2025-07-15 | Outpatient (CLI) | payer MEDICARE, SELFPAY ==
[2019-02-27 14:50] VITALS: BMI 22.1
[2025-07-15 10:32] LABS: Mucous, Urine 0 SEEN /hpf (<or=2+); Red Blood Cells-Urine 0 SEEN /hpf (0-5)
[2025-07-15 12:23] LABS: Color, Urine Yellow (Yellow); Glucose, Dipstick Normal (Normal); Ketone-Dipstick Negative (Negative); Leukocyte Esterase-Dipstick 25 /ul (Negative); Nitrite-Dipstick Negative (Negative); Occult Blood-Urine Negative /ul (Negative); Protein-Dipstick 30 mg/dl (Negative); Specific Gravity, Urine 1.010 (1.002-1.030); Urine Bilirubin Dipstick Negative (Negative)
[2025-07-15 12:24] LABS: Hematocrit 34.3 % (37-47); Hemoglobin 11.6 g/dL (12.0-15.0); Immature Granulocytes Count 0.010 X10^3/uL (0.0-0.0); Mean Corp Hgb Conc 33.8 g/dL (32-36); Mean Corpuscular Volume 90.3 fL (81-99); Mean Platelet Vol. 9.8 fl (6.2-12.0); NRBC Flagged by Analyzer 0 % (0-5); Platelet Count 223 K/mm3 (150-450); RBC Distribution Width CV 13.9 % (11.6-14.6); RBC Distribution Width SD 45.6 fl (35.1-43.9); Red Blood Count 3.80 M/mm3 (4.2-5.4); White Blood Count 4.1 K/mm3 (4.4-11.0)
[2025-07-15 12:32] LABS: Squamous Epithelial Cells - UA 0-5 SEEN /hpf (5-10)
[2025-07-15 13:03] LABS: Creatinine, Urine (random) 69.50 mg/dL (28.00-217.00); Microalbumin,Random Urine 130.0 mg/L (<20 mg/L)
[2025-07-15 13:16] LABS: AST(SGOT) 29 U/L (<=31); Alanine Aminotransfer ALT/SGPT 20 U/L (<=34); Albumin, Serum 3.8 g/dL (3.4-4.8); Alkaline Phosphatase 71 U/L (35-104); Anion Gap 9 (5-15); BUN 32 mg/dL (4-19); BUN/Creat Ratio 20.3 RATIO (10-20); Calcium,Total 9.5 mg/dL (7.6-11.0); Carbon Dioxide 28.1 mmol/L (21.0-32.0); Chloride 94 mmol/L (98-108); Cholesterol 136 mg/dL (<=200); Globulin 2.9 g/dL (2.2-4.2); Glucose 95 mg/dL (70-99); Low Density Lipoprotein Calc. 56 mg/dL; Potassium 4.5 mmol/L (3.3-5.1); Triglycerides 49 mg/dL; Very Low Density Lipoprotein 10 mg/dL (5-40); Vitamin D,25 Hydroxy 44.0 ng/mL (30-100); cholesterol:hdl ratio screen 1.97
== END | disposition home or self-care (01) ==
LOC: MTLAB 10:21
PROVIDERS: PCP Internal Medicine; Referring Provider Internal Medicine; Visit Provider Internal Medicine
DX: E03.9 Hypothyroidism, unspecified (principal); I10 Essential (primary) hypertension; E78.2 Mixed hyperlipidemia; E55.9 Vitamin D deficiency, unspecified
CPT/HCPCS: 36415; 80053; 80061; 81001; 82043; 82306; 82570; 84443; 85025

== ENCOUNTER → 2025-07-23 | Outpatient (CLI) | payer MEDICARE, SELFPAY ==
[2019-02-27 14:50] VITALS: BMI 22.1
--- NOTE | 2025-07-23 11:20 | RAD_ITS ---
PROCEDURE: SHOULDER MIN 2 VIEWS 07/23/2025 REASON FOR EXAM: X-RAY OF SHOULDER, THREE VIEWS TECHNIQUE: Procedure Code: RADSH Modality: DX Procedure: SHOULDER MIN 2 VIEWS Laterality: COMPARISON: 07/23/2024. FINDINGS: No evidence acute fracture or dislocation. Mild acromioclavicular and moderate to severe glenohumeral degenerative changes. Elevation of the humeral head which may represent rotator cuff injury. The left lung apex is clear. RAD/Shoulder min 2 Views IMPRESSION: Osseous findings as above. Reading Location: [id number]
--- NOTE | 2025-07-23 11:20 | RAD_ITS ---
PROCEDURE: CERV SPINE 2 OR 3 VIEWS 07/23/2025 REASON FOR EXAM: X-RAY OF CERVICAL SPINE, TWO VIEWS TECHNIQUE: Procedure Code: RADSPCL Modality: DX Procedure: CERV SPINE 2 OR 3 VIEWS COMPARISON: 07/23/2024 FINDINGS: No evidence of acute fracture or subluxation. Straightening of the cervical lordosis may be positional and/or degenerative in nature. Multilevel spondylotic changes with varying degrees of disc space narrowing, endplate sclerosis, small anterior endplate osteophytes, uncovertebral spurring and hypertrophic facet arthropathy. No prevertebral soft tissue swelling. RAD/Cerv Spine 2 or 3 Views IMPRESSION: No evidence of acute fracture or subluxation. Multilevel spondylotic changes. Reading Location: [id number]
--- NOTE | 2025-07-23 11:24 | RAD_ITS ---
PROCEDURE: CHEST PA AND LATERAL 07/23/2025 REASON FOR EXAM: SHORTNESS OF BREATH TECHNIQUE: Procedure Code: RADCXR Modality: DX Procedure: CHEST PA AND LATERAL COMPARISON: 07/11/2025 and 07/12/2025 FINDINGS: The heart is enlarged small bilateral pleural effusions. The lungs are hyperaerated. No acute osseous abnormalities. RAD/Chest PA and Lateral IMPRESSION: Pulmonary findings as above. Reading Location: [id number]
[2025-07-23 12:04] LABS: Mucous, Urine 0 SEEN /hpf (<or=2+)
[2025-07-23 15:26] LABS: Hematocrit 34.0 % (37-47); Hemoglobin 10.9 g/dL (12.0-15.0); Immature Granulocytes Count 0.000 X10^3/uL (0.0-0.0); Mean Corp Hgb Conc 32.1 g/dL (32-36); Mean Corpuscular Volume 92.9 fL (81-99); Mean Platelet Vol. 10.0 fl (6.2-12.0); NRBC Flagged by Analyzer 0 % (0-5); Platelet Count 197 K/mm3 (150-450); RBC Distribution Width CV 13.9 % (11.6-14.6); RBC Distribution Width SD 46.8 fl (35.1-43.9); Red Blood Count 3.66 M/mm3 (4.2-5.4); White Blood Count 4.1 K/mm3 (4.4-11.0)
[2025-07-23 16:15] LABS: AST(SGOT) 26 U/L (<=31); Alanine Aminotransfer ALT/SGPT 17 U/L (<=34); Albumin, Serum 3.9 g/dL (3.4-4.8); Alkaline Phosphatase 65 U/L (35-104); Anion Gap 10 (5-15); BUN 37 mg/dL (4-19); BUN/Creat Ratio 20.8 RATIO (10-20); Calcium,Total 9.6 mg/dL (7.6-11.0); Carbon Dioxide 25.4 mmol/L (21.0-32.0); Chloride 101 mmol/L (98-108); Cholesterol 145 mg/dL (<=200); Globulin 2.9 g/dL (2.2-4.2); Glucose 94 mg/dL (70-99); Low Density Lipoprotein Calc. 63 mg/dL; Potassium 4.9 mmol/L (3.3-5.1); Pro- Brain NATRIURETIC PEPTIDE 10374 pg/mL (<=1800); Triglycerides 40 mg/dL; Very Low Density Lipoprotein 8 mg/dL (5-40); Vitamin D,25 Hydroxy 43.0 ng/mL (30-100); cholesterol:hdl ratio screen 1.99
[2025-07-23 17:16] LABS: Creatinine, Urine (random) 32.90 mg/dL (28.00-217.00); Microalbumin,Random Urine 61.8 mg/L (<20 mg/L)
[2025-07-23 21:06] LABS: Color, Urine Straw (Yellow); Glucose, Dipstick Normal (Normal); Ketone-Dipstick Negative (Negative); Leukocyte Esterase-Dipstick 25 /ul (Negative); Nitrite-Dipstick Negative (Negative); Occult Blood-Urine Negative /ul (Negative); Protein-Dipstick 15 mg/dl (Negative); Specific Gravity, Urine 1.010 (1.002-1.030); Urine Bilirubin Dipstick Negative (Negative)
[2025-07-23 23:53] LABS: Red Blood Cells-Urine 0-5 SEEN /hpf (0-5); Squamous Epithelial Cells - UA 0-5 SEEN /hpf (5-10)
== END | disposition home or self-care (01) ==
LOC: MTRAD 11:20 → MTLAB 11:52
PROVIDERS: Nurse Practitioner Family; PCP Internal Medicine; Referring Provider Internal Medicine; Visit Provider Internal Medicine
DX: E03.9 Hypothyroidism, unspecified (principal); I26.99 Other pulmonary embolism without acute cor pulmonale; I10 Essential (primary) hypertension; E78.2 Mixed hyperlipidemia; E55.9 Vitamin D deficiency, unspecified; R06.00 Dyspnea, unspecified; M25.512 Pain in left shoulder; M54.12 Radiculopathy, cervical region
CPT/HCPCS: 36415; 71046; 72040; 73030; 80053; 80061; 81001; 82043; 82306; 82570; 83880; 84443; 85025

== ENCOUNTER → 2025-07-27 | Outpatient (CLI) | payer MEDICARE, SELFPAY ==
[2019-02-27 14:50] VITALS: BMI 22.1
[2025-07-27 17:59] LABS: AST(SGOT) 27 U/L (<=31); Alanine Aminotransfer ALT/SGPT 19 U/L (<=34); Albumin, Serum 4.2 g/dL (3.4-4.8); Alkaline Phosphatase 73 U/L (35-104); Anion Gap 12 (5-15); BUN 34 mg/dL (4-19); BUN/Creat Ratio 18.3 RATIO (10-20); Calcium,Total 9.4 mg/dL (7.6-11.0); Carbon Dioxide 26.2 mmol/L (21.0-32.0); Chloride 100 mmol/L (98-108); Globulin 3.0 g/dL (2.2-4.2); Glucose 96 mg/dL (70-99); Potassium 4.3 mmol/L (3.3-5.1)
[2025-07-27 18:15] LABS: Hematocrit 35.5 % (37-47); Hemoglobin 11.6 g/dL (12.0-15.0); Immature Granulocytes Count 0.010 X10^3/uL (0.0-0.0); Mean Corp Hgb Conc 32.7 g/dL (32-36); Mean Corpuscular Volume 91.3 fL (81-99); Mean Platelet Vol. 9.9 fl (6.2-12.0); NRBC Flagged by Analyzer 0 % (0-5); Platelet Count 199 K/mm3 (150-450); RBC Distribution Width CV 14.0 % (11.6-14.6); RBC Distribution Width SD 46.8 fl (35.1-43.9); Red Blood Count 3.89 M/mm3 (4.2-5.4); White Blood Count 4.2 K/mm3 (4.4-11.0)
== END | disposition home or self-care (01) ==
LOC: MTLAB 15:06
PROVIDERS: PCP Internal Medicine; Referring Provider Internal Medicine Rheumatology; Visit Provider Internal Medicine Rheumatology
DX: M06.4 Inflammatory polyarthropathy (principal); Z79.899 Other long term (current) drug therapy; R76.81 Abnormal rheumatoid factor and anti-citrullinated protein antibody without rheumatoid arthritis
CPT/HCPCS: 36415; 80053; 85025

== ENCOUNTER → 2025-09-01 | Outpatient (CLI) | payer MEDICARE, SELFPAY ==
[2019-02-27 14:50] VITALS: BMI 22.1
== END | disposition home or self-care (01) ==
LOC: CVS 12:42
PROVIDERS: PCP Internal Medicine; Referring Provider Nurse Practitioner Family; Visit Provider Nurse Practitioner Family
DX: I50.23 Acute on chronic systolic (congestive) heart failure (principal)
CPT/HCPCS: 93308